=== PATIENT | female | born 1965 | race Caucasian/White ===

== ENCOUNTER 2017-04-30 21:44 | Emergency (ER) | payer MEDICAID ==
[~2017-04-30 21:44] MED LIST: ACET325 PO; BENZ1TAB PO; CEFU1TAB18 PO; CLOZ100 PO; FLUP10 PO; FURO20 PO; IOHEXOL 350 MG/ML 10 ML VIAL (for RAD DIAG) IVCONTRAST ONE; LISI-363 PO; VIST50CA PO
[2017-04-30 22:00] VITALS: BP 132/70; PULSE 89; RESP 18; TEMP 98.1; O2SAT 99
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
[2017-04-30 23:02] LABS: AUTOMATED NEUTROPHIL # 5.1 TH/MM3 (1.8-7.7); BASOPHIL # 0.1 TH/MM3 (0-0.2); EOSINOPHIL % 0.1 % (0.0-4.0); HEMATOCRIT 35.1 % (35.0-46.0); HEMOGLOBIN 11.6 GM/DL (11.6-15.3); LYMPH % 30.1 % (9.0-44.0); LYMPHOCYTE # 2.6 TH/MM3 (1.0-4.8); MEAN CELL VOLUME 84.2 FL (80.0-100.0); MEAN CORPUSCULAR HEMOGLOBIN 27.8 PG (27.0-34.0); MEAN PLATELET VOLUME 8.3 FL (7.0-11.0); MONO % 8.7 % (0.0-8.0); MONOCYTE # 0.7 TH/MM3 (0-0.9); NEUT % 60.1 % (16.0-70.0); PLATELET COUNT 349 TH/MM3 (150-450); RED BLOOD COUNT 4.17 MIL/MM3 (4.00-5.30); RED CELL DISTRIBUTION WIDTH 14.2 % (11.6-17.2); WHITE BLOOD COUNT 8.5 TH/MM3 (4.0-11.0)
[2017-04-30 23:03] LABS: AMORPHOUS SEDIMENT, URINE RARE; BACTERIA, URINE FEW /hpf; BILIRUBIN, URINE NEG (NEG); BLOOD, URINE MOD (NEG); GLUCOSE,URINE NEG (NEG); KETONE, URINE NEG (NEG); NITRITE,URINE NEG (NEG); PH, URINE 5.5 (5.0-8.5); SQUAMOUS EPITHELIAL CELL URINE 6 /hpf (0-5); URINE COLOR YELLOW (YELLW/STRAW); URINE LEUKOCYTE ESTERASE TRACE (NEG)
[2017-04-30 23:24] LABS: ALKALINE PHOSPHATASE 124 U/L (45-117); TOTAL BILIRUBIN ADULT 0.3 MG/DL (0.2-1.0); TOTAL PROTEIN 7.1 GM/DL (6.4-8.2)
[2017-04-30 23:26] LABS: ALT (GPT) 33 U/L (10-53); AST (GOT) 33 U/L (15-37); BICARBONATE 23.9 MEQ/L (21.0-32.0); BLOOD UREA NITROGEN 17 MG/DL (7-18); CALCIUM 9.6 MG/DL (8.5-10.1); CHLORIDE 100 MEQ/L (98-107); CREATININE 0.75 MG/DL (0.50-1.00); GLOMERULAR FILTRATION RATE 81 ML/MIN (>89); GLUCOSE,RANDOM 99 MG/DL (74-106); LIPASE 154 U/L (73-393); SODIUM (NA) 132 MEQ/L (136-145)
--- NOTE | 2017-05-01 00:41 | RADRPT ---
EXAM DATE/TIME: 04/30/2017 23:55 [place] COMPARISON: No previous studies available for comparison. INDICATIONS : Epigastric abdominal pain. IV CONTRAST: 100 cc Omnipaque 350 (iohexol) IV ORAL CONTRAST: No oral contrast ingested. RADIATION DOSE: 11.58 CTDIvol (mGy) MEDICAL HISTORY : Cardiovascular disease. Hypertension. SURGICAL HISTORY : None. ENCOUNTER: Initial ACUITY: 1 day PAIN SCALE: 6/10 LOCATION: Abdomen. TECHNIQUE: Volumetric scanning of the abdomen and pelvis was performed. Using automated exposure control and ad justment of the mA and/or kV according to patient size, radiation dose was kept as low as reasonably achievable to obtain optimal diagnostic quality images. DICOM format image data is available electro nically for review and comparison. FINDINGS: LOWER LUNGS: The visualized lower lungs are clear. LIVER: Homogeneous density without lesion. There is no dilation of the biliary tree. No calcified gallston es. SPLEEN: Normal size without lesion. PANCREAS: Within normal limits. KIDNEYS: Normal in size and shape. There is no mass, stone or hydronephrosis. ADRENAL GLANDS: Within normal limits. VASCULAR: There is no aortic aneurysm. BOWEL/MESENTERY: There is mild dilation of proximal small bowel loops measuring up to 3.3 cm in dimension. No air-flu id levels seen. Distal small bowel is not dilated. There is a moderate amount of stool throughout t he left and sigmoid colon. No evidence of free fluid or free intraperitoneal gas. ABDOMINAL WALL: Within normal limits. RETROPERITONEUM: There is no lymphadenopathy. BLADDER: No wall thickening or mass. REPRODUCTIVE: Anteverted uterus to the right. No adnexal masses seen. INGUINAL: There is no lymphadenopathy or hernia. MUSCULOSKELETAL: Within normal limits for patient age. CONCLUSION: 1. Mild dilation of proximal small bowel loops without air-fluid levels. This is nonspecific and cou ld represent ileus. Recommend followup films. 2. Mild constipation. Tavo Harris MD on May 01, 2017 at 0:36 Board Certified Radiologist. This report was verified electronically.
[2017-05-01] MEDS ORDERED: COLA100C5 PO (00:51)
[2017-05-01] MEDS ORDERED: LIDOCAINE VISCOUS 2% SOLN 15 ML UDC PO ONE (01:00)
[2017-05-01] MEDS ORDERED: ALUMINUM/MAGNESIUM/SIMETH 30 ML CUP PO ONE (01:00)
[2017-05-01] MEDS ORDERED: DOCUSATE SODIUM 100 MG CAP PO ONE (01:00)
[2017-05-01 02:22] VITALS: BP 136/78
== END 2017-05-01 05:15 | disposition home or self-care (01) ==
LOC: NEPD 21:44 → NEPB 05-01 05:15
DX: K59.00 Constipation, unspecified (principal); E87.1 Hypo-osmolality and hyponatremia; F31.9 Bipolar disorder, unspecified; F41.9 Anxiety disorder, unspecified; E78.00 Pure hypercholesterolemia, unspecified; I10 Essential (primary) hypertension; F20.9 Schizophrenia, unspecified; E07.9 Disorder of thyroid, unspecified; Z79.899 Other long term (current) drug therapy
CPT/HCPCS: 74177; 80053; 80178; 81001; 83690; 84703; 85025; 99285; Q9967

== ENCOUNTER 2018-01-14 12:43 | Inpatient (IN) ==
[2018-01-14] MEDS ORDERED: Sod Chloride 0.9% Inj 1,000 ML IV.SIG SCH (13:00)
[2018-01-14 13:50] LABS: Baso % (Auto) 0.2 % (0.0-2.0); Eos % (Auto) 0.1 % (0.0-4.0); Hematocrit 30.8 % (35.0-46.0); Hemoglobin 10.7 gm/dL (11.6-15.3); Lymph # (Auto) 1.3 th/mm3 (1.0-4.8); Lymph % (Auto) 17.9 % (9.0-44.0); Mean Corpuscular HGB Conc 34.9 % (32.0-36.0); Mean Corpuscular Hemoglobin 28.8 pg (27.0-34.0); Mean Corpuscular Volume 82.4 fL (80.0-100.0); Mean Platelet Volume 7.5 fL (7.0-11.0); Mono % (Auto) 13.5 % (0.0-8.0); Neut # (Auto) 4.8 th/mm3 (1.8-7.7); Neut % (Auto) 68.3 % (16.0-70.0); Platelet Count 246 th/mm3 (150-450); Red Blood Count 3.73 mil/mm3 (4.00-5.30); Red Cell Distribution Width 13.6 % (11.6-17.2); White Blood Count 7.1 th/mm3 (4.0-11.0)
[2018-01-14 14:15] LABS: Albumin 4.1 g/dL (3.4-5.0); Anion Gap 13 meq/L (5-15); Aspartate Aminotransferase 15 U/L (15-37); Blood Urea Nitrogen 10 mg/dL (7-18); Calcium 9.2 mg/dL (8.5-10.1); Carbon Dioxide 20.6 meq/L (21.0-32.0); Chloride 84 meq/L (98-107); Glomerular Filtration Rate 78 mL/min (>89); Glucose,Random 88 mg/dL (74-106)
[2018-01-14 14:18] LABS: Alanine Aminotransferase 18 U/L (10-53); Alkaline Phosphatase 61 U/L (45-117); Thyroid Stimulating Hormone 0.413 uIU/mL (0.358-3.740); Total Protein 6.8 g/dL (6.4-8.2)
[2018-01-14 14:26] LABS: Sodium 118 meq/L (136-145)
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
--- NOTE | 2018-01-14 15:32 | P.HP ---
History of Present Illness Primary Care Physician: No Primary Care Physician History of Present Illness: 52-year-old white female being admitted for acute hyponatremia and acute manic episode. Patient is a unreliable historian, history is largely otherwise obtained from emergency room physician and per phone call made to . I spoke with [facility], informed me that pt's caregiver/cane furniture maker by the name of Catina brought her possibly from assisted/ living facility to because she was having a manic episode. At patient conveyed that she has been vomiting and having diarrhea along with edematous. She also c/o "has to urinate but now it she is not urinating" and now believes that she needed to get medically cleared. As I approach the patient's room from a far to evaluate her, I can clearly see her talking but to no one in the room. Nurse affirms that she is talking by herself in the room. Upon asking the patient, she is able to verify that this is indeed a hospital and that the correct month is January, she gets the year wrong by 8 years mentioning that it is 2009. She mentions that she is here in the hospital because she wants to get herself Kumar acted so that she can switch her medications. The patient is very tangential in her thought process. As I review her chart and allergies, I asked her about Haldol Geodon and Seroquel and she mentions the exact same response to each one stating that it "breaks me out in hives." Her blood work in the emergency department showed no abnormalities except for acute hyponatremia with a sodium of 118. Social history and family history are noncontributory as the patient is unreliable given her acute manic state. Last seen 2 months ago 11/20 at her PCP's office per my phone conversation with pt's PCP nurse pracitioner. Pt used to be at [facility] but now apparently lives at some private assisted living arrangement. Inpatient Certification: I certify that the inpatient services were ordered in accordance with Medicare regulations governing the order. This includes certification that hospital inpatient services are reasonable and necessary and in the case of services not specified as inpatient-only under 42 CFR 419.22(n), that they are appropriately provided as inpatient services in accordance to with the 2-midnight benchmark under 43 CFR 412.3(e) Estimated Total Length of Stay (Days): 2 Plans for Post Hospital Care: Not yet determined Review of Systems All other systems reviewed negative except as stated in HPI PMFSH - History History Provided By: Patient, Medical Record - Medical History Medical History: Medical History (Last Reviewed 01/14/18 @ 15:24 by Chad Payne MD) Anemia Bipolar 1 disorder Depression Hyperlipidemia Hypertension Hypothyroid Schizophrenia - Tobacco History Smoking Status: Never smoker - Alcohol History How Often Do You Have a Drink Containing Alcohol: 2 to 4 times a month - Substance Use History Substance History: No History of Abuse - Travel History Recent Travel in the [place] Within the Last 8 Weeks: No Recent Travel Out of the Country Within the Last 8 Weeks: No - Immunization History Tetanus Immunization: Unsure Medications and Allergies Active Medications: Active Medications Sodium Chloride (Ns Inj) 1,000 mls @ 0 mls/hr IV.SIG BOLUS HAMZAH Sodium Chloride (Ns Flush) 2 ml IV.FLUSH BID HAMZAH Sodium Chloride (Ns Flush) 2 ml IV.FLUSH PRN PRN PRN Reason: FLUSH AFTER USING IV ACCESS Allergies Allergy/AdvReac Type Severity Reaction Status Date / Time divalproex sodium Allergy Severe unknown Unverified 01/14/18 12:58 haloperidol [From Haldol] Allergy Unknown UNKNOWN Verified 01/14/18 13:57 lamotrigine Allergy Unknown unknown Unverified 01/14/18 12:58 ziprasidone Allergy Unknown unknown Unverified 01/14/18 12:58 quetiapine AdvReac Severe Hallucinati Unverified 01/14/18 12:58 ons TAPE Allergy Unknown Rash Uncoded 01/14/18 12:58 Home Medications Medication Instructions Recorded Confirmed Type atorvastatin 40 mg PO DAILY 01/14/18 01/14/18 History benztropine 1 mg PO DAILY 01/14/18 01/14/18 History brexpiprazole [Rexulti] 3 mg PO DAILY 01/14/18 01/14/18 History levothyroxine 75 mcg PO DAILY 01/14/18 01/14/18 History metformin 1,000 mg PO BID 01/14/18 01/14/18 History metoclopramide HCl 5 mg PO QID 01/14/18 01/14/18 History multivitamin 1 cap PO QAM 01/14/18 01/14/18 History omeprazole 20 mg PO DAILY 01/14/18 01/14/18 History oxcarbazepine 300 mg PO BID 01/14/18 01/14/18 History oxcarbazepine [Oxtellar XR] 600 mg PO DAILY 01/14/18 01/14/18 History rivaroxaban [Xarelto] 10 mg PO DAILY 01/14/18 01/14/18 History Exam Vital signs: Vital Signs 01/14/18 12:51 Temperature 100.1 F H Pulse Rate 85 Respiratory Rate 18 Blood Pressure 175/98 H Pulse Oximetry 98 Intake & Output 01/13/18 01/14/18 01/14/18 18:59 06:59 18:59 Weight 81.647 kg Narrative: VS: afebrile GENERAL: No acute distress, well-nourished white female, talking to herself SKIN: Warm and dry. EYES: Pupils equal and round. No scleral icterus. No injection or drainage. ENT: No nasal bleeding or discharge. Mucous membranes pink and moist. CARDIOVASCULAR: Regular rate and rhythm. no murmurs RESPIRATORY: No accessory muscle use. Clear to auscultation. Breath sounds equal bilaterally. GASTROINTESTINAL: Abdomen soft, non-tender, nondistended. Extremities: No clubbing, cyanosis. Mild edema in right lower extremity, no erythema. MUSCULOSKELETAL: adequate muscle bulk and tone for age and habitus. 3/5 proximal lower extremity strength bilaterally on straight leg raise, 5/5 proximal upper extremity strength bilaterally. NEUROLOGICAL: Awake and alert. No obvious cranial nerve deficits. No facial droop nor slurred speech noted. PSYCHIATRIC: Talking to herself, pleasant mood, appropriate affect. Judgment and insight are unreliable. Results - Labs CBC & Chem 7: 01/14/18 13:35 01/14/18 16:10 Labs: Laboratory Results - last 24 hr 01/14/18 01/14/18 13:35 13:35 WBC 7.1 RBC 3.73 L Hgb 10.7 L Hct 30.8 L MCV 82.4 MCH 28.8 MCHC 34.9 RDW 13.6 Plt Count 246 MPV 7.5 Neut % (Auto) 68.3 Lymph % (Auto) 17.9 [place] % (Auto) 13.5 H Eos % (Auto) 0.1 Baso % (Auto) 0.2 Neut # (Auto) 4.8 Lymph # (Auto) 1.3 [place] # (Auto) 1.0 H Eos # (Auto) 0.0 Baso # (Auto) 0.0 WBC Differential . Differential Comment Auto diff final Sodium 118 L* Potassium 4.0 Chloride 84 L Carbon Dioxide 20.6 L Anion Gap 13 BUN 10 Creatinine 0.77 Estimated GFR 78 L Random Glucose 88 Calcium 9.2 Total Bilirubin 0.5 AST 15 ALT 18 Alkaline Phosphatase 61 Total Protein 6.8 Albumin 4.1 TSH 0.413 Serum Alcohol Less than 3 Caprini VTE Risk Assessment Caprini VTE Risk Assessment: No/Low Risk (score <= 1) Caprini Risk Assessment Model: Point Value = 1 Point Value = 2 Point Value = 3 Point Value = 5 Age 41-60 Minor surgery BMI > 25 kg/m2 Swollen legs Varicose veins or History of unexplained or recurrent spontaneous Oral contraceptives or hormone replacement Sepsis (< 1 month) Serious lung disease, including pneumonia (< 1 month) Abnormal pulmonary function Acute myocardial infarction Congestive heart failure (< 1 month) History of inflammatory bowel disease Medical patient at bed rest Age 61-74 Arthroscopic surgery Major open surgery (> 45 min) Laparoscopic surgery (> 45 min) Malignancy Confined to bed (> 72 hours) Immobilizing plaster cast Central venous access Age >= 75 History of VTE Family history of VTE Factor V Leiden Prothrombin [id number] Lupus anticoagulant Anticardiolipin antibodies Elevated serum homocysteine Heparin-induced thrombocytopenia Other congenital or acquired thrombophilia Stroke (< 1 month) Elective arthroplasty Hip, pelvis, or leg fracture Acute spinal cord injury (< 1 month) Prophylaxis Regimen: Total Risk Factor Score Risk Level Prophylaxis Regimen 0-1 Low Early ambulation 2 Moderate Order ONE of the following: *Sequential Compression Device (SCD) *Heparin 5000 units SQ BID 3-4 Higher Order ONE of the following medications: *Heparin 5000 units SQ TID *Enoxaparin/Lovenox 40 mg SQ daily (WT < 150 kg, CrCl > 30 mL/min) *Enoxaparin/Lovenox 30 mg SQ daily (WT < 150 kg, CrCl > 10-29 mL/min) *Enoxaparin/Lovenox 30 mg SQ BID (WT < 150 kg, CrCl > 30 mL/min) AND/OR *Sequential Compression Device (SCD) 5 or more Highest Order ONE of the following medications: *Heparin 5000 units SQ TID (Preferred with Epidurals) *Enoxaparin/Lovenox 40 mg SQ daily (WT < 150 kg, CrCl > 30 mL/min) *Enoxaparin/Lovenox 30 mg SQ daily (WT < 150 kg, CrCl > 10-29 mL/min) *Enoxaparin/Lovenox 30 mg SQ BID (WT < 150 kg, CrCl > 30 mL/min) AND *Sequential Compression Device (SCD) Assessment and Plan - Plan 52-year-old white female being admitted for acute hyponatremia and acute shelley. Discharge from [facility]. Acute hypotonic hyponatremia 118 upon admission, NS bolus ordered by ER, rechecking sodium in a few hours BMP in a.m. - TSH wnl. Etiology is not clear although the patient says she used to take "salt supplements." Thus check random urine sodium, urine osmolality. F/u lithium level. Possibly medication induced SIADH? vs actual GI losses - check echo given LE edema on exam to r/o HF. Nausea/vomiting/diarrhea - No GI symptoms have been noted at this time. - With my discussion with the patient's most recent PCP visit she has a history of chronic constipation and ischemic colitis for which she was on Xarelto. I will hold his Xarelto for now and monitor for further GI symptoms, can be restarted upon discharge. Acute shelley Possibly secondary to metabolic disturbance but psychiatry consult is warranted especially given psych hx (charted dx of schizophrenia and bipolar) and the patient's limitations on antipsychotics as the validity is behind these listed allergies is not verified - lithium level pending, UDS pending - Hold off on home medications of benztropine, oxcarbazepine, metoclopramide - we will let psychiatry adjust Diabetes Monitor sugars for now, avoid metformin given possible GI upset hx for now - Lipitor Hypothyroidism - continue home Synthroid heparin
[2018-01-14 15:43] LABS: Amphetamine Screen,Urine Neg (Neg); Barbiturate Screen,Urine Neg (Neg); Cannabinoid Screen,Urine Neg (Neg); Cocaine Screen,Urine Neg (Neg)
[2018-01-14 16:08] LABS: Opiate Screen,Urine Neg (Neg)
[2018-01-14 16:45] LABS: Bacteria,Urine Rare /hpf; Bilirubin,Urine Negative (Negative); Clarity,Urine Clear (Clear); Color,Urine Yellow (Yellw/Straw); Glucose,Urine (UA) Negative (Negative); Hyaline Casts,Urine 3 /lpf (0-3); Leukocyte Esterase,Urine Trace (Negative); Mucus,Urine Few /lpf (Occasional); Nitrite,Urine Negative (Negative); Squamous Epithelial Cell,Urine <1 /hpf (0-5)
[2018-01-14] MEDS ORDERED: Heparin - SQ 10,000 UNITS/ML Vial SQ SCH (22:30)
[2018-01-15 09:19] LABS: Calcium 9.8 mg/dL (8.5-10.1); Carbon Dioxide 23.3 meq/L (21.0-32.0); Potassium 3.8 meq/L (3.5-5.1)
[2018-01-15] MEDS: Levothyroxine 75 MCG Tablet PO SCH (09:52)
[2018-01-15] MEDS: Pantoprazole Sodium 20 MG DR Tablet PO SCH (09:52)
[2018-01-15] MEDS: Heparin - SQ 10,000 UNITS/ML Vial SQ SCH ×2 (09:52→20:38)
--- NOTE | 2018-01-15 10:53 | P.PN ---
Subjective Interval history: Patient is standing in the room. Nurse mixer blender present in the room. No changes over night. No nausea, vomiting, diarrhea, constipation. Physical Exam Vital signs: Vital Signs 01/14/18 12:51 01/14/18 16:00 01/14/18 20:00 Temperature 100.1 F H 97.9 F Pulse Rate 85 87 80 Respiratory Rate 18 20 18 Blood Pressure 175/98 H 161/92 H 141/74 H Pulse Oximetry 98 98 97 01/15/18 00:00 01/15/18 04:00 01/15/18 08:00 Temperature 97.9 F 97.6 F 98.2 F Pulse Rate 64 62 72 Respiratory Rate 16 16 20 Blood Pressure 140/75 109/59 L 113/65 Pulse Oximetry 98 97 97 Intake & Output 01/14/18 01/15/18 01/15/18 18:59 06:59 18:59 Intake Total 600 / 600 Balance 600 / 600 Weight 78.9 kg 78.5 kg Intake: IV 500 / 500 NS Inj 1,000 ML @ Wide Open IV. 500 / 500 SIG BOLUS HAMZAH Rx#:[id number] Oral 100 / 100 Other: # Voids 3 # Bowel Movements 0 Weight On Admission 81.647 kg Narrative: GENERAL: Alert well-developed female. Alert, oriented. SKIN: Warm and dry. HEAD: Atraumatic. Normocephalic. EYES: Pupils equal and round. No scleral icterus. No injection or drainage. ENT: No nasal bleeding or discharge. Mucous membranes pink and moist. NECK: Trachea midline. No JVD. CARDIOVASCULAR: Regular rate and rhythm. RESPIRATORY: No accessory muscle use. Clear to auscultation. Breath sounds equal bilaterally. GASTROINTESTINAL: Abdomen soft, non-tender, nondistended. Hepatic and splenic margins not palpable. MUSCULOSKELETAL: Extremities without clubbing, cyanosis. Lower extremity edema. No obvious deformities. NEUROLOGICAL: Awake and alert. No obvious cranial nerve deficits. Motor grossly within normal limits. Five out of 5 muscle strength in the arms and legs. Normal speech. PSYCHIATRIC: Labile mood, tangential speech Results - Labs CBC & Chem 7: 01/14/18 13:35 01/15/18 07:39 Laboratory Results - last 24 hr 01/14/18 01/14/18 01/14/18 13:35 13:35 14:40 WBC 7.1 RBC 3.73 L Hgb 10.7 L Hct 30.8 L MCV 82.4 MCH 28.8 MCHC 34.9 RDW 13.6 Plt Count 246 MPV 7.5 Neut % (Auto) 68.3 Lymph % (Auto) 17.9 [place] % (Auto) 13.5 H Eos % (Auto) 0.1 Baso % (Auto) 0.2 Neut # (Auto) 4.8 Lymph # (Auto) 1.3 [place] # (Auto) 1.0 H Eos # (Auto) 0.0 Baso # (Auto) 0.0 WBC Differential . Differential Comment Auto diff final Sodium 118 L* Potassium 4.0 Chloride 84 L Carbon Dioxide 20.6 L Anion Gap 13 BUN 10 Creatinine 0.77 Estimated GFR 78 L POC Glucose Random Glucose 88 Calcium 9.2 Total Bilirubin 0.5 AST 15 ALT 18 Alkaline Phosphatase 61 Total Protein 6.8 Albumin 4.1 TSH 0.413 Urine Color Urine Clarity Urine pH Ur Specific [place] Urine Protein Urine Glucose (UA) Urine Ketones Urine Occult Blood Urine Nitrate Urine Bilirubin Urine Urobilinogen Ur Leukocyte Esterase Urine RBC Urine WBC Ur Squamous Epith Cells Urine Bacteria Hyaline Casts Urine Mucus Micro UA Comment Ur Microscopic Review Urine Culture Comments Urine Osmolality Ur Random Sodium Urine Opiates Screen Ur Barbiturates Screen Ur Amphetamines Screen U Benzodiazepines Scrn [place] 0.1 L Urine Cocaine Screen U Cannabinoids Screen Serum Alcohol Less than 3 01/14/18 01/14/18 01/14/18 14:45 14:45 16:10 WBC RBC Hgb Hct MCV MCH MCHC RDW Plt Count MPV Neut % (Auto) Lymph % (Auto) [place] % (Auto) Eos % (Auto) Baso % (Auto) Neut # (Auto) Lymph # (Auto) [place] # (Auto) Eos # (Auto) Baso # (Auto) WBC Differential Differential Comment Sodium 120 L* Potassium Chloride Carbon Dioxide Anion Gap BUN Creatinine Estimated GFR POC Glucose Random Glucose Calcium Total Bilirubin AST ALT Alkaline Phosphatase Total Protein Albumin TSH Urine Color Yellow Urine Clarity Clear Urine pH 6.0 Ur Specific [place] 1.010 Urine Protein Negative Urine Glucose (UA) Negative Urine Ketones Trace H Urine Occult Blood Negative Urine Nitrate Negative Urine Bilirubin Negative Urine Urobilinogen Less than 2 Ur Leukocyte Esterase Trace H Urine RBC Less than 1 Urine WBC 3 Ur Squamous Epith Cells <1 Urine Bacteria Rare H Hyaline Casts 3 Urine Mucus Few H Micro UA Comment Culture not ind Ur Microscopic Review Not Reportable Urine Culture Comments Culture not ind Urine Osmolality Ur Random Sodium Urine Opiates Screen Neg Ur Barbiturates Screen Neg Ur Amphetamines Screen Neg U Benzodiazepines Scrn Neg [place] Urine Cocaine Screen Neg U Cannabinoids Screen Neg Serum Alcohol 01/14/18 01/14/18 01/14/18 18:15 18:15 22:10 WBC RBC Hgb Hct MCV MCH MCHC RDW Plt Count MPV Neut % (Auto) Lymph % (Auto) [place] % (Auto) Eos % (Auto) Baso % (Auto) Neut # (Auto) Lymph # (Auto) [place] # (Auto) Eos # (Auto) Baso # (Auto) WBC Differential Differential Comment Sodium Potassium Chloride Carbon Dioxide Anion Gap BUN Creatinine Estimated GFR POC Glucose 93 Random Glucose Calcium Total Bilirubin AST ALT Alkaline Phosphatase Total Protein Albumin TSH Urine Color Urine Clarity Urine pH Ur Specific [place] Urine Protein Urine Glucose (UA) Urine Ketones Urine Occult Blood Urine Nitrate Urine Bilirubin Urine Urobilinogen Ur Leukocyte Esterase Urine RBC Urine WBC Ur Squamous Epith Cells Urine Bacteria Hyaline Casts Urine Mucus Micro UA Comment Ur Microscopic Review Urine Culture Comments Urine Osmolality 216 L Ur Random Sodium 25 Urine Opiates Screen Ur Barbiturates Screen Ur Amphetamines Screen U Benzodiazepines Scrn [place] Urine Cocaine Screen U Cannabinoids Screen Serum Alcohol 01/15/18 07:39 WBC RBC Hgb Hct MCV MCH MCHC RDW Plt Count MPV Neut % (Auto) Lymph % (Auto) [place] % (Auto) Eos % (Auto) Baso % (Auto) Neut # (Auto) Lymph # (Auto) [place] # (Auto) Eos # (Auto) Baso # (Auto) WBC Differential Differential Comment Sodium 131 L D Potassium 3.8 Chloride 98 D Carbon Dioxide 23.3 Anion Gap 10 BUN 6 L Creatinine 0.70 Estimated GFR 88 L POC Glucose Random Glucose 78 Calcium 9.8 Total Bilirubin AST ALT Alkaline Phosphatase Total Protein Albumin TSH Urine Color Urine Clarity Urine pH Ur Specific [place] Urine Protein Urine Glucose (UA) Urine Ketones Urine Occult Blood Urine Nitrate Urine Bilirubin Urine Urobilinogen Ur Leukocyte Esterase Urine RBC Urine WBC Ur Squamous Epith Cells Urine Bacteria Hyaline Casts Urine Mucus Micro UA Comment Ur Microscopic Review Urine Culture Comments Urine Osmolality Ur Random Sodium Urine Opiates Screen Ur Barbiturates Screen Ur Amphetamines Screen U Benzodiazepines Scrn [place] Urine Cocaine Screen U Cannabinoids Screen Serum Alcohol Assessment and Plan - Plan Hypotonic hyponatremia 118 upon admission, NS bolus ordered by ER 01/15/18 - sodium 131 - TSH wnl. Etiology is not clear although the patient says she used to take "salt supplements." Thus check random urine sodium, urine osmolality. F/u lithium level. Medication induced SIADH vs GI losses - Echo today to r/o CHF due to LE edema Nausea/vomiting/diarrhea - No GI symptoms now - History of chronic constipation and ischemic colitis for which she was on Xarelto. - Holding Xarelto for now and monitor for further GI symptoms, - Restart upon discharge. Acute shelley ?2/2 to metabolic disturbance but patient has extensive psych hx of schizophrenia and bipolar and long antipsychotic allergy list - lithium level 0.1 mL, UDS negative - Hold off on home medications of benztropine, oxcarbazepine, metoclopramide, psych consult pending Diabetes Monitor sugars for now -avoid metformin given possible GI upset hx for now -atorvastatin Hypothyroidism - continue home Synthroid Code Status: Full DVT prophylaxis: Heparin
--- NOTE | 2018-01-15 15:08 | P.PN ---
Subjective Interval history: Denies abdominal cramps or legs pain. No palpitations no chest pain or shortness of breath. No nausea, vomiting, diarrhea, constipation. Physical Exam Vital signs: Vital Signs 01/14/18 16:00 01/14/18 20:00 01/15/18 00:00 Temperature 97.9 F 97.9 F Pulse Rate 87 80 64 Respiratory Rate 20 18 16 Blood Pressure 161/92 H 141/74 H 140/75 Pulse Oximetry 98 97 98 01/15/18 04:00 01/15/18 08:00 Temperature 97.6 F 98.2 F Pulse Rate 62 72 Respiratory Rate 16 20 Blood Pressure 109/59 L 113/65 Pulse Oximetry 97 97 Intake & Output 01/14/18 01/15/18 01/15/18 18:59 06:59 18:59 Intake Total 600 / 600 Balance 600 / 600 Weight 78.9 kg 78.5 kg Intake: IV 500 / 500 NS Inj 1,000 ML @ Wide Open IV. 500 / 500 SIG BOLUS HAMZAH Rx#:[id number] Oral 100 / 100 Other: # Voids 3 # Bowel Movements 0 Weight On Admission 81.647 kg Narrative: GENERAL: Alert well-developed female. Alert, oriented. CARDIOVASCULAR: Regular rate and rhythm. RESPIRATORY: No accessory muscle use. Clear to auscultation. Breath sounds equal bilaterally. GASTROINTESTINAL: Abdomen soft, non-tender, nondistended. Hepatic and splenic margins not palpable. MUSCULOSKELETAL: Extremities without clubbing, cyanosis. Lower extremity edema. No obvious deformities. NEUROLOGICAL: Awake and alert. No obvious cranial nerve deficits. Motor grossly within normal limits. Five out of 5 muscle strength in the arms and legs. Normal speech. PSYCHIATRIC: Labile mood, tangential speech Results - Labs CBC & Chem 7: 01/14/18 13:35 01/15/18 07:39 Laboratory Results - last 24 hr 01/14/18 01/14/18 01/14/18 14:40 14:45 14:45 Sodium Potassium Chloride Carbon Dioxide Anion Gap BUN Creatinine Estimated GFR POC Glucose Random Glucose Calcium Urine Color Yellow Urine Clarity Clear Urine pH 6.0 Ur Specific [place] 1.010 Urine Protein Negative Urine Glucose (UA) Negative Urine Ketones Trace H Urine Occult Blood Negative Urine Nitrate Negative Urine Bilirubin Negative Urine Urobilinogen Less than 2 Ur Leukocyte Esterase Trace H Urine RBC Less than 1 Urine WBC 3 Ur Squamous Epith Cells <1 Urine Bacteria Rare H Hyaline Casts 3 Urine Mucus Few H Micro UA Comment Culture not ind Ur Microscopic Review Not Reportable Urine Culture Comments Culture not ind Urine Osmolality Ur Random Sodium Urine Opiates Screen Neg Ur Barbiturates Screen Neg Ur Amphetamines Screen Neg U Benzodiazepines Scrn Neg [place] 0.1 L Urine Cocaine Screen Neg U Cannabinoids Screen Neg 01/14/18 01/14/18 01/14/18 16:10 18:15 18:15 Sodium 120 L* Potassium Chloride Carbon Dioxide Anion Gap BUN Creatinine Estimated GFR POC Glucose Random Glucose Calcium Urine Color Urine Clarity Urine pH Ur Specific [place] Urine Protein Urine Glucose (UA) Urine Ketones Urine Occult Blood Urine Nitrate Urine Bilirubin Urine Urobilinogen Ur Leukocyte Esterase Urine RBC Urine WBC Ur Squamous Epith Cells Urine Bacteria Hyaline Casts Urine Mucus Micro UA Comment Ur Microscopic Review Urine Culture Comments Urine Osmolality 216 L Ur Random Sodium 25 Urine Opiates Screen Ur Barbiturates Screen Ur Amphetamines Screen U Benzodiazepines Scrn [place] Urine Cocaine Screen U Cannabinoids Screen 01/14/18 01/15/18 22:10 07:39 Sodium 131 L D Potassium 3.8 Chloride 98 D Carbon Dioxide 23.3 Anion Gap 10 BUN 6 L Creatinine 0.70 Estimated GFR 88 L POC Glucose 93 Random Glucose 78 Calcium 9.8 Urine Color Urine Clarity Urine pH Ur Specific [place] Urine Protein Urine Glucose (UA) Urine Ketones Urine Occult Blood Urine Nitrate Urine Bilirubin Urine Urobilinogen Ur Leukocyte Esterase Urine RBC Urine WBC Ur Squamous Epith Cells Urine Bacteria Hyaline Casts Urine Mucus Micro UA Comment Ur Microscopic Review Urine Culture Comments Urine Osmolality Ur Random Sodium Urine Opiates Screen Ur Barbiturates Screen Ur Amphetamines Screen U Benzodiazepines Scrn [place] Urine Cocaine Screen U Cannabinoids Screen Assessment and Plan - Plan Hypotonic hyponatremia 118 upon admission, received NS bolus in the ER. Monitor sodium 01/15/18 - sodium 131 - TSH wnl. Etiology is not clear although the patient says she used to take "salt supplements." Thus check random urine sodium, urine osmolality. F/u lithium level. Medication induced SIADH vs GI losses - Echo today to r/o CHF due to LE edema Nausea/vomiting/diarrhea . - No GI symptoms now - History of chronic constipation and ischemic colitis for which she was on Xarelto. - Holding Xarelto for now and monitor for further GI symptoms, - Restart upon discharge. Acute shelley ?2/2 to metabolic disturbance but patient has extensive psych hx of schizophrenia and bipolar and long antipsychotic allergy list - lithium level 0.1 mL, UDS negative - Hold off on home medications of benztropine, oxcarbazepine, metoclopramide, psych consult pending Diabetes Monitor sugars for now -avoid metformin given possible GI upset hx for now -atorvastatin Hypothyroidism - continue home Synthroid Code Status: Full DVT prophylaxis: Heparin Discharge plan pending improvement, pending Psych evaluation
--- NOTE | 2018-01-15 17:44 | ECHRPT ---
Indication: HEART FAILURE CONCLUSIONS There is normal left ventricular systolic function with an ejection fraction of 60-65%. No regional wall motion abnormalities. Normal left ventricular size. Wall thickness is normal. No significant valvular disease. The inferior vena cava is normal in size. BP: / HR: Rhythm: Sinus MEASUREMENTS (Male / Female) Normal Values Technical Quality:Fair 2D ECHO LV Diastolic Diameter PLAX 4.9 cm 4.2 - 5.9 / 3.9 - 5.3 cm LV Systolic Diameter PLAX 3.5 cm IVS Diastolic Thickness 0.8 cm 0.6 - 1.0 / 0.6 - 0.9 cm LVPW Diastolic Thickness 0.8 cm 0.6 - 1.0 / 0.6 - 0.9 cm LV Relative Wall Thickness 0.3 RV Internal Dim ED PLAX 2.9 cm LVOT Diameter 2.6 cm Aortic Root Diameter 3.4 cm LA Systolic Diameter LX 3.7 cm 3.0 - 4.0 / 2.7 - 3.8 cm M-MODE AV Cusp Separation MM 2.3 cm DOPPLER AV Peak Velocity 109.0 cm/s AV Peak Gradient 4.8 mmHg AV Mean Gradient 3.0 mmHg AV Velocity Time Integral 24.1 cm LVOT Peak Velocity 72.1 cm/s LVOT Peak Gradient 2.1 mmHg LVOT Velocity Time Integral 15.8 cm AV Area Cont Eq vti 3.5 cm AV Area Cont Eq pk 3.5 cm Mitral E Point Velocity 68.9 cm/s Mitral A Point Velocity 56.9 cm/s Mitral E to A Ratio 1.2 LV E' Lateral Velocity 9.2 cm/s Mitral E to LV E' Lateral Ratio 7.5 LV E' Septal Velocity 8.5 cm/s Mitral E to LV E' Septal Ratio 8.1 TR Peak Velocity 204.0 cm/s TR Peak Gradient 16.6 mmHg PV Peak Velocity 54.9 cm/s PV Peak Gradient 1.2 mmHg FINDINGS LEFT VENTRICLE Normal left ventricular size. Wall thickness is normal. The left ventricular systolic function is normal with an estimated ejection fraction in the range of 60-65%. RIGHT VENTRICLE Normal right ventricular size and systolic function. LEFT ATRIUM The left atrial size is normal. RIGHT ATRIUM The right atrial size is normal. ATRIAL SEPTUM No atrial level shunt is demonstrated by color flow Doppler interrogation. AORTA The aortic root and proximal ascending aorta are normal in size on limited imaging. MITRAL VALVE [id number] mitral valve regurgitation. AORTIC VALVE Trileaflet aortic valve. Trace aortic valve regurgitation. TRICUSPID VALVE There is trace tricuspid valve regurgitation. PULMONARY VALVE No pulmonary valve regurgitation or stenosis. VESSELS The inferior vena cava is normal in size. PERICARDIUM No pericardial effusion. Sonu Carlos MD (Electronically Signed) Final Date:15 January 2018 17:42
--- NOTE | 2018-01-15 20:01 | P.CONPSY ---
Provisional Diagnosis Admission Date: January 14, 2018 15:04 [place].: Bipolar disorder History of Present Illness Service: Psychiatry Consult date: 01/15/18 Requesting Physician: Chad Payne Reason for Consult: Bipolar/shelley Primary Care Provider: No Primary Care Physician History of Present Illness: Patient is a 52-year-old woman, , 2 children, domiciled an assisted living facility for disorder versus schizoaffective disorder bipolar type, with multiple psychiatric admissions, no previous suicide attempts, no history of self-injurious behavior with no substance use history, with a past medical history significant for diabetes, hypertension, hypothyroidism who presented to the ED after being brought in by EMS from [facility] for medical clearance which patient was noted with leg swelling with concerns of possible shelley. Patient was admitted to the medical unit due to noted hyponatremia which psychiatry was consulted for evaluation of possible shelley from bipolar disorder. Patient was found sitting in hospital chair with sitter at bedside noted B, cooperative. Patient states that she was at [facility] but after this assisted living facility was closed down to have been transitioned over to a different assisted living facility in [place] which was run by a couple. Patient states that after having been there recently for some time she was sent to the crisis center at [facility] due to concerns of the warehouse traffic supervisor and sister for possible manic episode but upon arrival to [facility] has been sent to the ER for medical clearance. She states that her sister and her lead worker of housekeeping and laundry/assistant facility manager had spoken over the phone and decided that she needed to be "checked out". She states that prior to this she believes that the warehouse traffic supervisor's has been was upset that patient was using "terms of endearment" when addressing him which upset him and brought concern in which she was decided that patient would be taken to [facility] crisis center for evaluation. Patient states that recently she has been having difficulty with sleeping which is 1 of her triggers for a manic episode but denied any other mood symptoms such as irritability, racing thoughts, perceptual disturbances, increased goal-directed activities, stating that her mood has been "fine" and compliant with medications. Patient states that usually when she comes manic she becomes hypersexual which she has not been doing since her last manic episode. During interview patient not noted to have pressured speech nor having a progress process but was noted to be tearful at times with some labile mood during interview and having poor recall recent events. Patient also noted with difficulty in concentration. Patient this time is alert and oriented x3, states her mood has been "fine" stating that she is concerned of wanting to adjust her medications as well as be referred to a different assisted living facility if she is not happy where she is currently staying. Patient denies any suicidal homicidal ideations at this time. Family psychiatric history: Patient states "I have no idea" denies any suicides in the family. Past psychiatric history: Previous psychiatric diagnoses bipolar disorder as per patient versus schizoaffective disorder bipolar type, multiple psychiatric admissions, denies any suicide attempt or self-injurious behavior. Patient reports outpatient mental health follow-up with Dr. Schumacher at [facility] in [place]. Patient has complex case manager, Lydia Cole. Substance use history: Denies Past medical history: Hypertension, hypothyroidism, diabetes Allergies: Depakote, Haldol, Lamictal, ziprasidone, Seroquel Social history: , has 2 children, domiciled an assisted living facility in [place]. Review of Systems All other systems reviewed negative except as stated in HPI PMFSH - History History Provided By: Patient, Medical Record - Medical History Medical History: Medical History (Last Reviewed 01/14/18 @ 15:24 by Chad Payne MD) Anemia Bipolar 1 disorder Depression Hyperlipidemia Hypertension Hypothyroid Schizophrenia - Tobacco History Second Hand Smoke Exposure: No Smoking Status: Never smoker - Alcohol History How Often Do You Have a Drink Containing Alcohol: 2 to 4 times a month - Substance Use History Substance History: No History of Abuse - Travel History Recent Travel in the [facility] Within the Last 8 Weeks: No Recent Travel Out of the Country Within the Last 8 Weeks: No - Immunization History Tetanus Immunization: Unsure Hx Influenza Vaccine This Season: Yes Medications and Allergies Active Medications: Active Medications Atorvastatin Calcium (Lipitor) 40 mg PO DAILY [facility] Last Admin: 01/15/18 09:53 Dose: 40 mg Heparin Sodium (Porcine) (Heparin Inj) 5,000 units SQ Q12HR HAMZAH Last Admin: 01/15/18 09:52 Dose: 5,000 units Levothyroxine Sodium (Synthroid) 75 mcg PO DAILY HAMZAH Last Admin: 01/15/18 09:52 Dose: 75 mcg Olanzapine (Zyprexa) 5 mg PO BID [facility] Pantoprazole Sodium (Protonix) 20 mg PO DAILY [facility] Last Admin: 01/15/18 09:52 Dose: 20 mg Sodium Chloride (Ns Flush) 2 ml IV.FLUSH BID [facility] Last Admin: 01/15/18 09:52 Dose: 2 ml Sodium Chloride (Ns Flush) 2 ml IV.FLUSH PRN PRN PRN Reason: FLUSH AFTER USING IV ACCESS Allergies Allergy/AdvReac Type Severity Reaction Status Date / Time divalproex sodium Allergy Severe unknown Unverified 01/14/18 12:58 haloperidol [From Haldol] Allergy Unknown UNKNOWN Verified 01/14/18 13:57 lamotrigine Allergy Unknown unknown Unverified 01/14/18 12:58 ziprasidone Allergy Unknown unknown Unverified 01/14/18 12:58 quetiapine AdvReac Severe Hallucinati Unverified 01/14/18 12:58 ons TAPE Allergy Unknown Rash Uncoded 01/14/18 12:58 Home Medications Medication Instructions Recorded Confirmed Type atorvastatin 40 mg PO DAILY 01/14/18 01/14/18 History benztropine 1 mg PO DAILY 01/14/18 01/14/18 History brexpiprazole [Rexulti] 3 mg PO DAILY 01/14/18 01/14/18 History levothyroxine 75 mcg PO DAILY 01/14/18 01/14/18 History metformin 1,000 mg PO BID 01/14/18 01/14/18 History metoclopramide HCl 5 mg PO QID 01/14/18 01/14/18 History multivitamin 1 cap PO QAM 01/14/18 01/14/18 History omeprazole 20 mg PO DAILY 01/14/18 01/14/18 History oxcarbazepine 300 mg PO BID 01/14/18 01/14/18 History oxcarbazepine [Oxtellar XR] 600 mg PO DAILY 01/14/18 01/14/18 History rivaroxaban [Xarelto] 10 mg PO DAILY 01/14/18 01/14/18 History Exam Vital signs: Vital Signs 01/15/18 00:00 01/15/18 04:00 01/15/18 08:00 Temperature 97.9 F 97.6 F 98.2 F Pulse Rate 64 62 72 Respiratory Rate 16 16 20 Blood Pressure 140/75 109/59 L 113/65 Pulse Oximetry 98 97 97 01/15/18 12:00 01/15/18 16:00 Temperature 97.7 F 97.8 F Pulse Rate 74 71 Respiratory Rate 20 20 Blood Pressure 123/79 165/91 H Pulse Oximetry 98 100 Intake & Output 01/15/18 01/15/18 01/16/18 06:59 18:59 06:59 Intake Total 600 / 600 480 / 480 Balance 600 / 600 480 / 480 Weight 78.5 kg Intake: IV 500 / 500 NS Inj 1,000 ML @ Wide Open IV. 500 / 500 SIG BOLUS HAMZAH Rx#:[id number] Oral 100 / 100 480 / 480 Other: # Voids 3 5 # Bowel Movements 0 1 Narrative: Patient not noted to be in acute distress, no gross motor abnormalities, no signs of tremor or EPS, no psychomotor agitation or retardation. - Constitutional no acute distress, cooperative Mental Status Examination Appearance: Appropriate Consciousness: Alert Orientation: Person, Place, Date/Time Motor Activity: Normal gait Speech: Unremarkable Language: Adequate Fund of Knowledge: Inadequate Attention and Concentration: Easily distracted Memory: Impaired, Immediate (intact), Remote (intact) Mood: Anxious Affect: Labile (Slightly, tearful at times during interview) Thought Process & Associations: Tangential Thought Content: Appropriate Hallucination Type: None Delusion Type: None Suicidal Ideation: No Suicidal Plan: No Suicidal Intention: No Homicidal Ideation: No Homicidal Plan: No Homicidal Intention: No Insight: Fair Judgment: Impulsive Assessment and Plan - Assessment (1) Bipolar disorder Code(s): F31.9 - Bipolar disorder, unspecified Status: Acute - Plan Plan: Estimated LOS: [] days Patient is a 52-year-old woman who carries a diagnosis of bipolar disorder, previous psychiatric admissions, no previous suicide attempts currently being followed at [facility] for her bipolar disorder which patient presented to the ED being sent from [facility] for medical evaluation was found to have hyponatremia and patient currently on Tegretol which has propensity to cause hyponatremia and would recommend not to resume this medication at this time and start olanzapine 5 mg p.o. twice daily for mood stabilization. Patient this time does not meet criteria for involuntary psychiatric admission but due to history of previous manic episodes and likely hypomanic symptoms at this time would benefit from psychiatric admission to start new mood stabilizer and to ensure continued stability which patient agrees to voluntary admission once medically cleared. Patient to be transferred to psychiatry inpatient unit once medically cleared for voluntary inpatient psychiatric care. Continue one-to-one observation for safety. Consult appreciated. Justification for Continued Inpatient Stay: At risk of further decompensation at lower level care.
[2018-01-16] MEDS ORDERED: Temazepam 15 MG Capsule PO ONE (02:29)
[2018-01-16 05:27] LABS: Calcium 9.9 mg/dL (8.5-10.1); Carbon Dioxide 23.3 meq/L (21.0-32.0); Potassium 3.5 meq/L (3.5-5.1)
[2018-01-16 05:53] LABS: Baso # (Auto) 0.1 th/mm3 (0.0-0.2); Baso % (Auto) 0.8 % (0.0-2.0); Eos % (Auto) 0.1 % (0.0-4.0); Hematocrit 35.9 % (35.0-46.0); Hemoglobin 11.9 gm/dL (11.6-15.3); Lymph # (Auto) 2.6 th/mm3 (1.0-4.8); Lymph % (Auto) 39.4 % (9.0-44.0); Mean Corpuscular HGB Conc 33.2 % (32.0-36.0); Mean Corpuscular Volume 84.4 fL (80.0-100.0); Mean Platelet Volume 8.5 fL (7.0-11.0); Mono # (Auto) 0.6 th/mm3 (0.0-0.9); Mono % (Auto) 8.5 % (0.0-8.0); Neut # (Auto) 3.4 th/mm3 (1.8-7.7); Neut % (Auto) 51.2 % (16.0-70.0); Platelet Count 162 th/mm3 (150-450); Red Blood Count 4.25 mil/mm3 (4.00-5.30); Red Cell Distribution Width 13.7 % (11.6-17.2); White Blood Count 6.7 th/mm3 (4.0-11.0)
[2018-01-16 06:23] LABS: Platelet Estimate Normal (Normal); Platelet Morphology Normal (Normal)
[2018-01-16] MEDS: Levothyroxine 75 MCG Tablet PO SCH (08:07)
[2018-01-16] MEDS: Pantoprazole Sodium 20 MG DR Tablet PO SCH (08:07)
[2018-01-16] MEDS: Heparin - SQ 10,000 UNITS/ML Vial SQ SCH (08:08)
--- NOTE | 2018-01-16 11:38 | P.PN ---
Subjective Interval history: The patient is in bed she is much better today. Says no abdominal cramps or muscle weakness no muscle cramps. She feels improved. Eating fairly well. No fever or chills no cough. No nausea vomiting no diarrhea constipation. Physical Exam Vital signs: Vital Signs 01/15/18 12:00 01/15/18 16:00 01/15/18 20:00 Temperature 97.7 F 97.8 F 97.8 F Pulse Rate 74 71 70 Respiratory Rate 20 20 20 Blood Pressure 123/79 165/91 H 144/76 H Pulse Oximetry 98 100 100 01/16/18 00:00 01/16/18 08:00 Temperature 98.5 F 97.8 F Pulse Rate 66 78 Respiratory Rate 20 16 Blood Pressure 166/88 H 126/73 Pulse Oximetry 96 100 Intake & Output 01/15/18 01/16/18 01/16/18 18:59 06:59 18:59 Intake Total 480 / 480 680 / 680 Balance 480 / 480 680 / 680 Weight 78.6 kg Intake: Oral 480 / 480 680 / 680 Other: # Voids 5 3 Date of Last Bowel Movement 01/16/18 01/16/18 # Bowel Movements 1 Narrative: GENERAL: Alert well-developed female. Alert, oriented. CARDIOVASCULAR: Regular rate and rhythm. RESPIRATORY: No accessory muscle use. Clear to auscultation. Breath sounds equal bilaterally. GASTROINTESTINAL: Abdomen soft, non-tender, nondistended. Hepatic and splenic margins not palpable. MUSCULOSKELETAL: Extremities without clubbing, cyanosis. Lower extremity edema. No obvious deformities. NEUROLOGICAL: Awake and alert. No obvious cranial nerve deficits. Motor grossly within normal limits. Five out of 5 muscle strength in the arms and legs. Normal speech. PSYCHIATRIC: Labile mood, tangential speech Results - Labs CBC & Chem 7: 01/16/18 04:46 01/16/18 04:46 Laboratory Results - last 24 hr 01/16/18 01/16/18 04:46 04:46 WBC 6.7 RBC 4.25 Hgb 11.9 Hct 35.9 MCV 84.4 MCH 28.0 MCHC 33.2 RDW 13.7 Plt Count 162 D MPV 8.5 Prelim Diff (Auto) Slide review pending Neut % (Auto) 51.2 Lymph % (Auto) 39.4 [place] % (Auto) 8.5 H Eos % (Auto) 0.1 Baso % (Auto) 0.8 Neut # (Auto) 3.4 Lymph # (Auto) 2.6 [place] # (Auto) 0.6 Eos # (Auto) 0.0 Baso # (Auto) 0.1 WBC Differential . Diff Scan Auto diff confirmed Differential Comment . Platelet Estimate Normal Platelet Morphology Normal Sodium 126 L Potassium 3.5 Chloride 93 L Carbon Dioxide 23.3 Anion Gap 10 BUN 7 Creatinine 0.75 Estimated GFR 81 L Random Glucose 91 Calcium 9.9 Assessment and Plan - Plan Hypotonic hyponatremia,. Na back to normal 118 upon admission, received NS bolus in the ER. Monitor sodium 01/15/18 - sodium 131 - TSH wnl. Etiology is not clear although the patient says she used to take "salt supplements." Thus check random urine sodium, urine osmolality. F/u lithium level. Medication induced SIADH vs GI losses - Echo today to r/o CHF due to LE edema Nausea/vomiting/diarrhea. Resolved - No GI symptoms now - History of chronic constipation and ischemic colitis for which she was on Xarelto. - Holding Xarelto for now and monitor for further GI symptoms, - Restart upon discharge. Acute shelley ?2/2 to metabolic disturbance but patient has extensive psych hx of schizophrenia and bipolar and long antipsychotic allergy list - lithium level 0.1 mL, UDS negative - Hold off on home medications of benztropine, oxcarbazepine, metoclopramide, psych consult pending Diabetes Monitor sugars for now -avoid metformin given possible GI upset hx for now -atorvastatin Hypothyroidism - continue home Synthroid Code Status: Full DVT prophylaxis: Heparin Discharge plan pending improvement, pending Psych recommendations poss going to inpatient psych or back to [facility]
[2018-01-16 12:21] VITALS: RESP 17
--- NOTE | 2018-01-16 16:14 | P.DS ---
Date of admission: 01/14/18 15:04 Primary care physician: No Primary Care Physician Brief History from admission: 52-year-old white female being admitted for acute hyponatremia and acute manic episode. Patient is a unreliable historian, history is largely otherwise obtained from emergency room physician and per phone call made to . I spoke with [facility] Emergency services, informed me that pt's caregiver/realtime court reporter by the name of Catina [place] [facility] [place] because she was having a manic episode. At patient conveyed that she has been vomiting and having diarrhea along with edematous. She also c/o "has to urinate but now it she is not urinating" and now believes that she needed to get medically cleared. As I approach the patient's room from a far to evaluate her, I can clearly see her talking but to no one in the room. Nurse affirms that she is talking by herself in the room. Upon asking the patient, she is able to verify that this is indeed a hospital and that the correct month is January, she gets the year wrong by 8 years mentioning that it is 2009. She mentions that she is here in the hospital because she wants to get herself Kumar acted so that she can switch her medications. The patient is very tangential in her thought process. As I review her chart and allergies, I asked her about Haldol Geodon and Seroquel and she mentions the exact same response to each one stating that it "breaks me out in hives." Her blood work in the emergency department showed no abnormalities except for acute hyponatremia with a sodium of 118. Social history and family history are noncontributory as the patient is unreliable given her acute manic state. Last seen 2 months ago 11/20 at her PCP's office per my phone conversation with pt's PCP nurse pracitioner. Pt used to be at [facility] but now apparently lives at some private assisted living arrangement. DS: Medications - Discharge Medications Prescriptions: olanzapine 5 mg PO BID #30 tab DS: Summary Hospital Course: Hypotonic hyponatremia. Na back to normal. 118 upon admission, received NS bolus in the ER. Monitor sodium 01/15/18 - sodium 131 - TSH wnl. Etiology is not clear although the patient says she used to take "salt supplements." Thus check random urine sodium, urine osmolality. F/u lithium level. Medication induced SIADH vs GI losses - Echo normal EF - DC tegretol and started on olanzapine per psyc. Discussed with Dr Dodson psych , appreciate recommendations Nausea/vomiting/diarrhea. Resolved. - No GI symptoms now - History of chronic constipation and ischemic colitis for which she was on Xarelto. - Holding Xarelto for now and monitor for further GI symptoms, - Restart upon discharge. Acute shelley ?2/2 to metabolic disturbance but patient has extensive psych hx of schizophrenia and bipolar and long antipsychotic allergy list - lithium level 0.1 mL, UDS negative - Hold off on home medications of benztropine, oxcarbazepine, metoclopramide, psych consult pending Diabetes Monitor sugars for now -avoid metformin given possible GI upset hx for now -atorvastatin Hypothyroidism - continue home Synthroid Code Status: Full DVT prophylaxis: Heparin Stable medically. DC to psych unit - Time Spent with Patient Total time spent providing and/or coordinating discharge services: Greater than 30 minutes - Quality: VTE Deep Vein Thrombosis/Pulmonary Embolism Present on Admission: No Exam Vital signs: Vital Signs 01/15/18 20:00 01/16/18 00:00 01/16/18 08:00 Temperature 97.8 F 98.5 F 97.8 F Pulse Rate 70 66 78 Respiratory Rate 20 20 16 Blood Pressure 144/76 H 166/88 H 126/73 Pulse Oximetry 100 96 100 01/16/18 12:00 Temperature 97.5 F L Pulse Rate 80 Respiratory Rate 17 Blood Pressure 135/88 Pulse Oximetry 100 Intake & Output 01/15/18 01/16/18 01/16/18 18:59 06:59 18:59 Intake Total 480 / 480 680 / 680 Balance 480 / 480 680 / 680 Weight 78.6 kg Intake: Oral 480 / 480 680 / 680 Other: # Voids 5 3 Date of Last Bowel Movement 01/16/18 01/16/18 # Bowel Movements 1 Narrative: GENERAL: Alert well-developed female. Alert, oriented. CARDIOVASCULAR: Regular rate and rhythm. RESPIRATORY: No accessory muscle use. Clear to auscultation. Breath sounds equal bilaterally. GASTROINTESTINAL: Abdomen soft, non-tender, nondistended. Hepatic and splenic margins not palpable. MUSCULOSKELETAL: Extremities without clubbing, cyanosis. Lower extremity edema. No obvious deformities. NEUROLOGICAL: Awake and alert. No obvious cranial nerve deficits. Motor grossly within normal limits. Five out of 5 muscle strength in the arms and legs. Normal speech. PSYCHIATRIC: Labile mood, tangential speech Results Procedures completed during hospitalization: none Labs on day of discharge: Labs from last 24 hours 01/16/18 01/16/18 04:46 04:46 WBC 6.7 RBC 4.25 Hgb 11.9 Hct 35.9 MCV 84.4 MCH 28.0 MCHC 33.2 RDW 13.7 Plt Count 162 D MPV 8.5 Prelim Diff (Auto) Slide review pending Neut % (Auto) 51.2 Lymph % (Auto) 39.4 [place] % (Auto) 8.5 H Eos % (Auto) 0.1 Baso % (Auto) 0.8 Neut # (Auto) 3.4 Lymph # (Auto) 2.6 [place] # (Auto) 0.6 Eos # (Auto) 0.0 Baso # (Auto) 0.1 WBC Differential . Diff Scan Auto diff confirmed Differential Comment . Platelet Estimate Normal Platelet Morphology Normal Sodium 126 L Potassium 3.5 Chloride 93 L Carbon Dioxide 23.3 Anion Gap 10 BUN 7 Creatinine 0.75 Estimated GFR 81 L Random Glucose 91 Calcium 9.9 Discharge Plan - Discharge Disposition Patient Disposition: 64 Disc To [facility] - Discharge Condition Condition: Stable - Discharge Order Discharge Orders: Discharge Order (Routine); Ordered 01/16/18 Ordered By: Saritha Delgadillo - Discharge Details Anticipated Discharge Date: 01/16/18 - Physicians Team Primary Care Provider: Primary Care Lidia Lozano Attending Provider: Saritah Delgadillo Other Providers: [employer],Insurance ; Dejan Dodson MD
[2018-01-16 17:08] VITALS: BP 131/78; PULSE 82; TEMP 98; O2SAT 99
[2018-01-16] MEDS ORDERED: Acetaminophen 325 MG Tablet PO PRN (17:17)
--- NOTE | 2018-01-16 20:03 | ECG ---
Date Performed: 01/15/2018 Time Performed: 20:23:42 PTAGE: 52 years EKG: Sinus rhythm NORMAL ECG PREVIOUS TRACING : 12/26/2015 12.16 Since the previous tracing, no significant change noted DOCTOR: Uche Pena Interpretating Date/Time 01/16/2018 20:01:39
== END 2018-01-16 18:50 ==
LOC: NEPD 12:43 → NEDA 15:04 → N04 16:42
PROVIDERS: ADMIT Hospitalist; ATTEND Hospitalist

== ENCOUNTER 2018-01-16 18:12 | Inpatient (IN) ==
[2018-01-16] MEDS ORDERED: Dextrose 50% in Water 50 ML Vial IV.PUSH PRN (20:21)
[2018-01-16] MEDS: Melatonin 5 MG Tablet PO PRN ×2 (21:38→23:27)
[2018-01-16] MEDS: Insulin NovoLOG Aspart Correctional Sugar Inj SQ SCH (21:39)
[2018-01-17] MEDS ORDERED: Sod Chloride 0.9% Inj 1,000 ML IV.CONT SCH (02:34)
[2018-01-17] MEDS: Insulin NovoLOG Aspart Correctional Sugar Inj SQ SCH ×5 (04:00→21:47)
[2018-01-17 08:26] LABS: Eos % (Auto) 0.4 % (0.0-4.0); Hematocrit 32.7 % (35.0-46.0); Hemoglobin 11.1 gm/dL (11.6-15.3); Lymph # (Auto) 1.7 th/mm3 (1.0-4.8); Lymph % (Auto) 40.9 % (9.0-44.0); Mean Corpuscular HGB Conc 33.9 % (32.0-36.0); Mean Corpuscular Hemoglobin 28.3 pg (27.0-34.0); Mean Corpuscular Volume 83.2 fL (80.0-100.0); Mono # (Auto) 0.5 th/mm3 (0.0-0.9); Neut # (Auto) 1.9 th/mm3 (1.8-7.7); Neut % (Auto) 45.7 % (16.0-70.0); Platelet Count 285 th/mm3 (150-450); Red Blood Count 3.93 mil/mm3 (4.00-5.30); Red Cell Distribution Width 13.6 % (11.6-17.2); White Blood Count 4.2 th/mm3 (4.0-11.0)
--- NOTE | 2018-01-17 08:37 | P.CON ---
History of Present Illness Service: [facility] Consult date: 01/17/18 Requesting Physician: Landon Garcia Reason for Consult: Assist with med management, hyponatremia Primary Care Provider: UNKNOWN Chief Complaint: "They lost my purse" History of Present Illness: 52-year-old white female with PMHx DM2, hyponatremia, Chronic constipation, bipolar DO being admitted for acute hyponatremia and acute manic episode. She is now admitted to medical psychiatry unit for further evaluation. Consulted for assistance with medical management. Patient was seen and followed by hospitalist group and inpatient. Patient seen and examined today. She is sitting in the Raquel chair with IV fluids on her side. She reports that her main problem and main concern is that "I lost my person is a very Blu, is very expensive."Patient started crying with tears in her eyes started to elaborate on stories about the issac ring, engagement ring that she had lost and also some earrings that she has lost. Reassurance provided. Patient was redirected to medical concerns. States that she had problems with her abdomen, chronic constipation, reflux. States that she was on Xarelto for right lower extremity DVT. She also states that ultrasound was done on it and they could not find a DVT. She did not has intangible thoughts. Needs to be redirected all the time. Unreliable historian. Most of her histories are taken from previous admissions and review of records. Denies pain or discomfort, fevers, chills, chest pain complaints of mid epigastric pain only when palpated. States she ate her breakfast. After examined conversation with patient having tearful moments when the TV was turned on to the music all of a sudden the patient starts dancing. Review of Systems unobtainable due to mental condition Comments: Unreliable historian [facility] - History History Provided By: Patient - Medical / Surgical Hx Neg / Unobtainable Surgical History: No Previous Surgery - Medical History Medical History: Medical History (Last Reviewed 01/17/18 @ 13:43 by ZIA Lehman) Anemia Bipolar 1 disorder Depression Hyperlipidemia Hypertension Hypothyroid Schizophrenia - Family History Family History: Family History (Last Updated 01/17/18 @ 13:43 by ZIA Lehman) Other Family history unknown - Social History I have reviewed the patient's Social History: Yes - Tobacco History Second Hand Smoke Exposure: No Smoking Status: Never smoker - Alcohol History How Often Do You Have a Drink Containing Alcohol: 4 or more times a week - Substance Use History Substance History: No History of Abuse - Immunization History Tetanus Immunization: Unsure Hx Influenza Vaccine This Season: Yes Medications and Allergies Active Medications: Active Medications Acetaminophen (Tylenol) 650 mg PO Q4H PRN PRN Reason: Pain 1-5 or Temp >101F Al Hydrox/Mg Hydrox/Simethicone (Mag-Al Plus Susp Liq) 30 ml PO Q6H PRN PRN Reason: DYSPEPSIA Al Hydroxide/Mg Hydroxide (Milk Of Magnesia Liq) 30 ml PO Q12H PRN PRN Reason: Mild Constipation Dextrose (D50w Vial) 50 ml IV.PUSH UNSCH PRN PRN Reason: PER HYPOGLYCEMIA PROTOCOL Glucagon (Glucagon Inj) 1 mg OTHER PRN PRN PRN Reason: for Hypoglycemia Protocol Sodium Chloride (Ns Inj) 1,000 mls @ 84 mls/hr IV.CONT .[id number] [facility] Last Admin: 01/17/18 02:45 Dose: 84 mls/hr Insulin Aspart (Novolog Insulin Correctional Sugar Inj) 0 unit SQ ACHS AND 3AM [facility]; Protocol Last Admin: 01/17/18 07:41 Dose: Not Given Melatonin (Melatonin) 5 mg PO HS PRN PRN Reason: INSOMNIA Last Admin: 01/16/18 23:27 Dose: 5 mg Sodium Chloride (Sodium Chloride) 1 gm PO BID [facility] Allergies Allergy/AdvReac Type Severity Reaction Status Date / Time divalproex sodium Allergy Severe unknown Unverified 01/14/18 12:58 haloperidol [From Haldol] Allergy Unknown UNKNOWN Verified 01/14/18 13:57 lamotrigine Allergy Unknown unknown Unverified 01/14/18 12:58 ziprasidone Allergy Unknown unknown Unverified 01/14/18 12:58 quetiapine AdvReac Severe Hallucinati Unverified 01/14/18 12:58 ons TAPE Allergy Unknown Rash Uncoded 01/14/18 12:58 Home Medications Medication Instructions Recorded Confirmed Type atorvastatin 40 mg PO DAILY 01/14/18 01/14/18 History benztropine 1 mg PO DAILY 01/14/18 01/14/18 History brexpiprazole [Rexulti] 3 mg PO DAILY 01/14/18 01/14/18 History levothyroxine 75 mcg PO DAILY 01/14/18 01/14/18 History metformin 1,000 mg PO BID 01/14/18 01/14/18 History metoclopramide HCl 5 mg PO QID 01/14/18 01/14/18 History multivitamin 1 cap PO QAM 01/14/18 01/14/18 History omeprazole 20 mg PO DAILY 01/14/18 01/14/18 History rivaroxaban [Xarelto] 10 mg PO DAILY 01/14/18 01/14/18 History Physical Exam Vital signs: Vital Signs 01/16/18 19:57 01/17/18 05:45 Temperature 97.9 F 97.6 F Pulse Rate 82 64 Respiratory Rate 18 18 Blood Pressure 129/81 144/83 H Pulse Oximetry 95 99 Intake & Output 01/16/18 01/17/18 01/17/18 18:59 06:59 18:59 Weight 80 kg Other: Weight On Admission 80 kg Narrative: GENERAL: This is a well-nourished, well-developed patient, in no apparent distress. SKIN: Warm and dry HEENT: Normocephalic. Pupils equal round and reactive. Nose without bleeding. Airway patent. NECK: Trachea midline. CARDIOVASCULAR: Regular rate and rhythm without murmurs, gallops, or rubs. RESPIRATORY: Clear to auscultation. Breath sounds equal bilaterally. No wheezes , rales, or rhonchi. GASTROINTESTINAL: Abdomen soft, nondistended. Bowel Sounds normoactive x4. Tenderness to palpate midepigastric region. MUSCULOSKELETAL: Extremities without clubbing, cyanosis, or edema. NEUROLOGICAL: Awake and alert. No focal neuro deficit. Moves all extremities. Varying speech. Manic. Tearful on and off. Assessment and Plan - Plan 52-year-old white female being admitted for acute hyponatremia and acute shelley. Hypotonic hyponatremia 118 upon admission, received NS bolus in the ER. Monitor sodium sodium 131 -->127 --> 137 -TSH wnl. Etiology is not clear although the patient says she used to take "salt supplements." -Random urine sodium wn, urine osmolality low. F/u lithium level. Possible medication induced SIADH vs GI losses -Echo 60-65% -IV fluids, to be dcd when improved. Sodium tabs daily Nausea/vomiting/diarrhea. Resolved -No GI symptoms now -History of chronic constipation and ischemic colitis? for which she was on Xarelto. -Restart Xarelto for now and monitor for further GI symptoms, Right lower extremity DVT ? -Days she is taking Xarelto secondary to right lower extremity DVT versus ischemic colitis. Acute shelley ?2/2 to metabolic disturbance but patient has extensive psych hx of schizophrenia and bipolar and long antipsychotic allergy list - lithium level 0.1 mL, UDS negative - Hold off on home medications of benztropine, oxcarbazepine, psych consult pending Diabetes Monitor sugars for now -Metformin 500mg BID, lower dose - Cont atorvastatin Hypothyroidism - continue home Synthroid DVT prop Xarelto Code Status: Full Code Discussed Condition With: Patient, nursing Discharge Planning: DC disposition by primary team
[2018-01-17 08:56] LABS: Calcium 9.5 mg/dL (8.5-10.1); Carbon Dioxide 24.9 meq/L (21.0-32.0); Chol/HDL Ratio 2.29 Ratio; HDL Cholesterol 54.5 mg/dL (40.0-60.0); Potassium 3.9 meq/L (3.5-5.1)
[2018-01-17] MEDS ORDERED: Sodium Chloride 1 GM Tablet PO SCH (09:00)
[2018-01-17] MEDS ORDERED: Sodium Chloride 0.9% 2 ML Flush PRN IV.FLUSH (11:46)
[2018-01-17 13:10] LABS: Hemoglobin A1c 5.7 % (4.3-6.0)
[2018-01-17] MEDS: Pantoprazole Sodium 20 MG DR Tablet PO SCH (13:44)
[2018-01-17] MEDS: Levothyroxine 75 MCG Tablet PO SCH (13:44)
[2018-01-17] MEDS: Rivaroxaban 10 MG Tablet PO SCH (14:29)
[2018-01-17] MEDS: Metoclopramide 10 MG Tablet PO SCH ×4 (15:14→21:27)
--- NOTE | 2018-01-17 18:21 | P.HPPSY ---
Provisional Diagnosis Admission Date: January 16, 2018 18:54 Competence Certification of Person's Competence To Provide Express and Informed Consent I have personally examined Concha Evans, a person being served at [facility] on, January 17, 2018 1816. Express and informed consent means consent voluntarily given in writing, by a competent person, after sufficient explanation and disclosure of the subject matter involved to enable the person to make a knowing and willful decision without any element of force, fraud, deceit, duress, or other form of constraint or coercion. This person is 18 years of age or older, is not now known to be incompetent to consent to treatment with a guardian advocate, and does not have a health care surrogate or proxy currently making medical treatment decisions. I have found this person to be one of the following: [] Competent to provide express and informed consent, as defined above, for voluntary admission to this facility and is competent to provide express and informed consent for treatment. He/she has the consistent capacity to make well reasoned, willful, and knowing decisions concerning his or her medical or mental health treatment. The person fully and consistently understands the purpose of the admission for examination/placement and is fully capable of personally exercising all rights assured [place]X] Incompetent to provide express and informed consent to voluntary admission, and this is incompetent to provide express and informed consent to treatment. The person must be transferred to involuntary status and a petition for a guardian advocate filed with the Circuit Court. [] Refusing to provide express and informed consent to voluntary admission but is competent to provide express and informed consent for treatment. The person must be discharged or transferred to involuntary status. Form shall be completed within 24 hours of a person's arrival at the receiving facility and filed in the clinical record of each person: 1. Admitted on a voluntary basis 2. Permitted to provide express and informed consent to his/her own treatment 3. Allowed to transfer from involuntary to voluntary status 4. Prior to permitting a person to consent to his or her own treatment after having been previously found incompetent to consent to treatment. History of Present Illness Capacity: Lacks capacity Chief Complaint: Bipolar History of Present Illness: Patient is a 52-year-old female with a history of bipolar disorder. She remains quite symptomatic. She is very pressured, hyperactive, increased energy , poor sleep, grandiose and euphoric. She does note irritability last night going on a tirade against her sitter. She admits to auditory hallucinations of Chauncey. Responding to ideas of reference from the TV. He does deny suicidal or homicidal ideation intent or plan Past psych: Patient has been diagnosed with bipolar and sees Dr. Schumacher on an outpatient basis. She is unaware what medication she was on. She denies a history of suicide attempts but says she does have a history of thoughts. Past medical: Recent episode of ischemic colitis Past Famhx: Unsure Past Social: Patient admits to regular use of cannabis and irregular use of alcohol. 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 This includes certification that hospital inpatient services are reasonable and necessary and in the case of services not specified as inpatient-only under 42 CFR 419.22(n), that they are appropriately provided as inpatient services in accordance to with the 2-midnight benchmark under 43 CFR 412.3(e) I certify that inpatient psychiatric hospital services are medically necessary. Evaluation and treatment and/or diagnostic testing are expected to improve the patient's condition. The patient needs on a daily basis, active treatment furnished directly by or requiring the supervision of inpatient psychiatric facility personnel. Estimated Total Length of Stay (Days): 7 Plans for Post Hospital Care: Not yet determined Review of Systems All other systems reviewed negative except as stated in HPI [facility] - History History Provided By: Patient - Medical History Medical History: Medical History (Last Reviewed 01/17/18 @ 18:19 by Winston Ely DO) Anemia Bipolar 1 disorder Depression Hyperlipidemia Hypertension Hypothyroid Schizophrenia - Family History Family History: Family History (Last Reviewed 01/17/18 @ 18:19 by Winston Eyl DO) Other Family history unknown - Tobacco History Second Hand Smoke Exposure: No Smoking Status: Never smoker - Alcohol History How Often Do You Have a Drink Containing Alcohol: 4 or more times a week - Substance Use History Substance History: No History of Abuse - Immunization History Tetanus Immunization: Unsure Hx Influenza Vaccine This Season: Yes Medications and Allergies Active Medications: Active Medications Acetaminophen (Tylenol) 650 mg PO Q4H PRN PRN Reason: Pain 1-5 or Temp >101F Al Hydrox/Mg Hydrox/Simethicone (Mag-Al Plus Susp Liq) 30 ml PO Q6H PRN PRN Reason: DYSPEPSIA Al Hydroxide/Mg Hydroxide (Milk Of Magnesia Liq) 30 ml PO Q12H PRN PRN Reason: Mild Constipation Atorvastatin Calcium (Lipitor) 40 mg PO DAILY [facility] Last Admin: 01/17/18 13:43 Dose: 40 mg Dextrose (D50w Vial) 50 ml IV.PUSH UNSCH PRN PRN Reason: PER HYPOGLYCEMIA PROTOCOL Glucagon (Glucagon Inj) 1 mg OTHER PRN PRN PRN Reason: for Hypoglycemia Protocol Insulin Aspart (Novolog Insulin Correctional Sugar Inj) 0 unit SQ ACHS AND 3AM [facility]; Protocol Last Admin: 01/17/18 16:37 Dose: Not Given Levothyroxine Sodium (Synthroid) 75 mcg PO DAILY@0600 [facility] Last Admin: 01/17/18 13:44 Dose: 75 mcg Melatonin (Melatonin) 5 mg PO HS PRN PRN Reason: INSOMNIA Last Admin: 01/16/18 23:27 Dose: 5 mg Metformin HCl (Glucophage) 500 mg PO BIDPC [facility] Last Admin: 01/17/18 18:16 Dose: Not Given Metoclopramide HCl (Reglan) 5 mg PO QID [facility] Last Admin: 01/17/18 18:15 Dose: Not Given Miscellaneous (Pill Splitter) 1 each OTHER UNSCH PRN PRN Reason: SEE LABEL COMMENTS Multivitamins (Theragran) 1 tab PO DAILY [facility] Last Admin: 01/17/18 13:43 Dose: 1 tab Padimate O (Chapstick) 1 applicatio TOPICAL UNSCH PRN PRN Reason: Dry lips Last Admin: 01/17/18 14:30 Dose: 1 applicatio Pantoprazole Sodium (Protonix) 20 mg PO DAILY [facility] Last Admin: 01/17/18 13:44 Dose: 20 mg Rivaroxaban (Xarelto) 10 mg PO DAILY [facility] Last Admin: 01/17/18 14:29 Dose: 10 mg Sodium Chloride (Ns Flush) 2 ml IV.FLUSH BID [facility] Sodium Chloride (Ns Flush) 2 ml IV.FLUSH PRN PRN PRN Reason: FLUSH AFTER USING IV ACCESS Sodium Chloride (Sodium Chloride) 1 gm PO DAILY [facility] Allergies Allergy/AdvReac Type Severity Reaction Status Date / Time divalproex sodium Allergy Severe unknown Unverified 01/14/18 12:58 haloperidol [From Haldol] Allergy Unknown UNKNOWN Verified 01/14/18 13:57 lamotrigine Allergy Unknown unknown Unverified 01/14/18 12:58 ziprasidone Allergy Unknown unknown Unverified 01/14/18 12:58 quetiapine AdvReac Severe Hallucinati Unverified 01/14/18 12:58 ons TAPE Allergy Unknown Rash Uncoded 01/14/18 12:58 Home Medications Medication Instructions Recorded Confirmed Type atorvastatin 40 mg PO DAILY 01/14/18 01/14/18 History benztropine 1 mg PO DAILY 01/14/18 01/14/18 History brexpiprazole [Rexulti] 3 mg PO DAILY 01/14/18 01/14/18 History levothyroxine 75 mcg PO DAILY 01/14/18 01/14/18 History metformin 1,000 mg PO BID 01/14/18 01/14/18 History metoclopramide HCl 5 mg PO QID 01/14/18 01/14/18 History multivitamin 1 cap PO QAM 01/14/18 01/14/18 History omeprazole 20 mg PO DAILY 01/14/18 01/14/18 History rivaroxaban [Xarelto] 10 mg PO DAILY 01/14/18 01/14/18 History Results - Labs CBC & Chem 7: 01/17/18 06:48 01/17/18 06:48 Labs: Laboratory Results - last 24 hr 01/16/18 01/17/18 01/17/18 21:14 06:48 06:48 WBC RBC Hgb Hct MCV MCH MCHC RDW Plt Count MPV Neut % (Auto) Lymph % (Auto) [place] % (Auto) Eos % (Auto) Baso % (Auto) Neut # (Auto) Lymph # (Auto) [place] # (Auto) Eos # (Auto) Baso # (Auto) WBC Differential Differential Comment Sodium 137 D Potassium 3.9 Chloride 105 D Carbon Dioxide 24.9 Anion Gap 7 BUN 7 Creatinine 0.74 Estimated GFR 82 L POC Glucose 114 H Random Glucose 88 Hemoglobin A1c 5.7 Calcium 9.5 Triglycerides 70 Cholesterol 125 LDL Cholesterol, Calc 57 HDL Cholesterol 54.5 Cholesterol/HDL Ratio 2.29 01/17/18 01/17/18 01/17/18 06:48 07:17 11:41 WBC 4.2 RBC 3.93 L Hgb 11.1 L Hct 32.7 L MCV 83.2 MCH 28.3 MCHC 33.9 RDW 13.6 Plt Count 285 D MPV 8.0 Neut % (Auto) 45.7 Lymph % (Auto) 40.9 [place] % (Auto) 12.0 H Eos % (Auto) 0.4 Baso % (Auto) 1.0 Neut # (Auto) 1.9 Lymph # (Auto) 1.7 [place] # (Auto) 0.5 Eos # (Auto) 0.0 Baso # (Auto) 0.0 WBC Differential . Differential Comment Auto diff final Sodium Potassium Chloride Carbon Dioxide Anion Gap BUN Creatinine Estimated GFR POC Glucose 94 101 Random Glucose Hemoglobin A1c Calcium Triglycerides Cholesterol LDL Cholesterol, Calc HDL Cholesterol Cholesterol/HDL Ratio 01/17/18 16:33 WBC RBC Hgb Hct MCV MCH MCHC RDW Plt Count MPV Neut % (Auto) Lymph % (Auto) [place] % (Auto) Eos % (Auto) Baso % (Auto) Neut # (Auto) Lymph # (Auto) [place] # (Auto) Eos # (Auto) Baso # (Auto) WBC Differential Differential Comment Sodium Potassium Chloride Carbon Dioxide Anion Gap BUN Creatinine Estimated GFR POC Glucose 86 Random Glucose Hemoglobin A1c Calcium Triglycerides Cholesterol LDL Cholesterol, Calc HDL Cholesterol Cholesterol/HDL Ratio Exam Vital signs: Vital Signs 01/16/18 19:57 01/17/18 05:45 Temperature 97.9 F 97.6 F Pulse Rate 82 64 Respiratory Rate 18 18 Blood Pressure 129/81 144/83 H Pulse Oximetry 95 99 Intake & Output 01/16/18 01/17/18 01/17/18 18:59 06:59 18:59 Intake Total 950 / 950 Balance 950 / 950 Weight 80 kg Intake: IV 950 / 950 NS Inj 1,000 ML @ 84 mls/hr IV. 950 / 950 CONT .[id number] [facility] Rx#:[id number] Other: Date of Last Bowel Movement 01/17/18 Weight On Admission 80 kg Mental Status Examination Appearance: Disheveled Consciousness: Alert Orientation: x4 Motor Activity: Normal gait Speech: Pressured, Rapid Language: Perseveration Fund of Knowledge: Adequate Attention and Concentration: Easily distracted Memory: Impaired Mood: Manic Affect: Other (Euphoric) Thought Process & Associations: Tangential Thought Content: Bizarre thinking, Hallucinations Delusion Type: Bizarre, Paranoid Suicidal Ideation: No Suicidal Plan: No Suicidal Intention: No Homicidal Ideation: No Homicidal Plan: No Homicidal Intention: No Insight: Poor Judgment: Poor Assessment and Plan - Assessment (1) Bipolar affective, manic, severe w/ psych Code(s): F31.2 - Bipolar disorder, current episode manic severe with psychotic features Status: Acute (2) Cannabis abuse Code(s): F12.10 - Cannabis abuse, uncomplicated Status: Acute - Plan Plan: Estimated LOS: [] days Given patient state of mind she does not have capacity to make her own medical decisions. We will petition her and obtain a proxy from her sister and then start treatment for bipolar shelley Justification for Continued Inpatient Stay: Patient would decompensate in a less restrictive setting
[2018-01-17] MEDS: Acetaminophen 325 MG Tablet PO PRN (21:27)
[2018-01-17] MEDS: Sodium Chloride 0.9% 2 ML Flush BID IV.FLUSH SCH (21:46)
[2018-01-17] MEDS: Melatonin 5 MG Tablet PO PRN (22:37)
[2018-01-18] MEDS: Insulin NovoLOG Aspart Correctional Sugar Inj SQ SCH ×5 (04:18→20:55)
[2018-01-18] MEDS: Acetaminophen 325 MG Tablet PO PRN ×2 (04:40→13:56)
[2018-01-18] MEDS: Levothyroxine 75 MCG Tablet PO SCH (05:39)
--- NOTE | 2018-01-18 08:30 | P.PN ---
Subjective Interval history: Follow-up visit hypotonic hyponatremia, DM. Patient seen and examined today. Patient is hyperverbal. Very somatic. Complaints of everything in her room none medical from bed to remote control. Requesting for all natural medications for sleep. Complaints of neck pain, back pain, states that has not been able to take naps. States that neck pain and back pain has been bothering her for months. Denies any nausea, vomiting, diarrhea. His abdominal pain or cramping. Denies headaches, chest pain, fevers, chills. Physical Exam Vital signs: Vital Signs 01/17/18 18:00 01/18/18 06:26 Temperature 98.1 F 98.5 F Pulse Rate 72 82 Respiratory Rate 20 20 Blood Pressure 150/71 H 155/76 H Pulse Oximetry 99 98 Intake & Output 01/17/18 01/18/18 01/18/18 18:59 06:59 18:59 Intake Total 950 / 950 960 / 960 Balance 950 / 950 960 / 960 Intake: IV 950 / 950 NS Inj 1,000 ML @ 84 mls/hr IV. 950 / 950 CONT .[id number] [facility] Rx#:[id number] Oral 960 / 960 Other: # Voids 3 Date of Last Bowel Movement 01/17/18 Narrative: GENERAL: This is a well-nourished, well-developed patient, in no apparent distress. SKIN: Warm and dry HEENT: Normocephalic. Pupils equal round and reactive. Nose without bleeding. Airway patent. NECK: Trachea midline. CARDIOVASCULAR: Regular rate and rhythm without murmurs, gallops, or rubs. RESPIRATORY: Clear to auscultation. Breath sounds equal bilaterally. No wheezes , rales, or rhonchi. GASTROINTESTINAL: Abdomen soft, nondistended. Bowel Sounds normoactive x4. MUSCULOSKELETAL: Extremities without clubbing, cyanosis, or edema. NEUROLOGICAL: Awake and alert. No focal neuro deficit. Moves all extremities. Hyperverbal. Results - Labs CBC & Chem 7: 01/17/18 06:48 01/17/18 06:48 Laboratory Results - last 24 hr 01/17/18 01/17/18 01/17/18 06:48 06:48 11:41 Sodium 137 D Potassium 3.9 Chloride 105 D Carbon Dioxide 24.9 Anion Gap 7 BUN 7 Creatinine 0.74 Estimated GFR 82 L POC Glucose 101 Random Glucose 88 Hemoglobin A1c 5.7 Calcium 9.5 Triglycerides 70 Cholesterol 125 LDL Cholesterol, Calc 57 HDL Cholesterol 54.5 Cholesterol/HDL Ratio 2.29 01/17/18 01/17/18 01/18/18 16:33 21:44 04:15 Sodium Potassium Chloride Carbon Dioxide Anion Gap BUN Creatinine Estimated GFR POC Glucose 86 91 80 Random Glucose Hemoglobin A1c Calcium Triglycerides Cholesterol LDL Cholesterol, Calc HDL Cholesterol Cholesterol/HDL Ratio 01/18/18 07:38 Sodium Potassium Chloride Carbon Dioxide Anion Gap BUN Creatinine Estimated GFR POC Glucose 100 Random Glucose Hemoglobin A1c Calcium Triglycerides Cholesterol LDL Cholesterol, Calc HDL Cholesterol Cholesterol/HDL Ratio Assessment and Plan - Plan 52-year-old white female being admitted for acute hyponatremia and acute shelley. Hypotonic hyponatremia 118 upon admission, received NS bolus in the ER. Monitor sodium sodium 131 -->127 --> 137 -TSH wnl. Etiology is not clear although the patient says she used to take "salt supplements." -Random urine sodium wn, urine osmolality low. F/u lithium level. Possible medication induced SIADH vs GI losses -Echo 60-65% -IV fluids DC -Sodium tabs daily. Monitor sodium. Nausea/vomiting/diarrhea -improved -No GI symptoms now -History of chronic constipation and ischemic colitis? for which she was on Xarelto. -Restart Xarelto for now and monitor for further GI symptoms, -Improved symptoms. Lactinex daily. Neck pain Back pain -Possibly chronic. Alternate ibuprofen, Tylenol. Right lower extremity DVT ? -States she is taking Xarelto secondary to right lower extremity DVT versus ischemic colitis. Acute shelley ?2/2 to metabolic disturbance but patient has extensive psych hx of schizophrenia and bipolar and long antipsychotic allergy list - lithium level 0.1 mL, UDS negative - Hold off on home medications of benztropine, oxcarbazepine, psych consult pending Diabetes T2, controlled Monitor sugars for now -Metformin 500mg BID, lower dose - home dose 1,000mg - Cont atorvastatin -Follow up with PCP in 3 months, may cont to lower dose Hypothyroidism - continue home Synthroid DVT prop Xarelto Full code Discussed with patient, nursing Discharge Planning: DC disposition by primary team
[2018-01-18] MEDS: Pantoprazole Sodium 20 MG DR Tablet PO SCH (09:06)
[2018-01-18] MEDS: Rivaroxaban 10 MG Tablet PO SCH (09:06)
[2018-01-18] MEDS: Metoclopramide 10 MG Tablet PO SCH ×4 (09:07→20:57)
[2018-01-18] MEDS: Sodium Chloride 1 GM Tablet PO SCH (09:07)
[2018-01-18] MEDS: Sodium Chloride 0.9% 2 ML Flush BID IV.FLUSH SCH ×2 (09:53→20:56)
--- NOTE | 2018-01-18 13:12 | P.PNPSY ---
Subjective Chief Complaint: Bipolar Remarks: Patient was seen and case discussed with nursing. We are continuing to wait for consent for medication. Patient remains manic, hyperverbal, pressured, hyperactive. She is grandiose and has auditory hallucinations from God. She does deny suicidal or homicidal ideation intent Mental Status Examination Appearance: Disheveled Consciousness: Alert Orientation: x4 Motor Activity: Normal gait Speech: Pressured, Rapid Language: Perseveration Fund of Knowledge: Adequate Attention and Concentration: Easily distracted Memory: Impaired Mood: Manic Affect: Other (Euphoric) Thought Process & Associations: Tangential Thought Content: Bizarre thinking, Hallucinations Delusion Type: Bizarre, Paranoid Suicidal Ideation: No Suicidal Plan: No Suicidal Intention: No Homicidal Ideation: No Homicidal Plan: No Homicidal Intention: No Insight: Poor Judgment: Poor Assessment and Plan - Assessment (1) Bipolar affective, manic, severe w/ psych Code(s): F31.2 - Bipolar disorder, current episode manic severe with psychotic features Status: Acute (2) Cannabis abuse Code(s): F12.10 - Cannabis abuse, uncomplicated Status: Acute - Plan Plan: Second opinion is pending. We can obtain consent for medication after second opinion is completed. Justification for Continued Inpatient Stay: Patient would decompensate in a less restrictive setting
--- NOTE | 2018-01-18 13:50 | P.CONPSY ---
Provisional Diagnosis Admission Date: January 16, 2018 18:54 [place].: Bipolar disorder current episode manic severe with psychotic features History of Present Illness Service: Psychiatry Consult date: 01/18/18 Requesting Physician: Winston Ely Reason for Consult: Second opinion petition supporting [facility] [employer] Primary Care Provider: UNKNOWN Chief Complaint: "They lost my purse" History of Present Illness: Patient is a 52 white female admitted to Dr. Winston Ely's H&P reviewed and agreed with. Dr. Ely is done first opinion petition supporting [facility] [employer]. I agree. Patient meets criteria for involuntary psychiatric hospitalization of the [facility] [employer]. Patient seen in her room with nurse Cira patient is flagrantly manic she is loud and intrusive hypersexual quite flirtatious, with rapid pressured speech she acknowledges racing thoughts. Still confused and disoriented as to everything that is going on around her. This I will cosign second opinion petition Review of Systems All other systems reviewed negative except as stated in HPI PMFSH - History History Provided By: Patient - Medical History Medical History: Medical History (Last Reviewed 01/17/18 @ 18:19 by Winston Ely DO) Anemia Bipolar 1 disorder Depression Hyperlipidemia Hypertension Hypothyroid Schizophrenia - Family History Family History: Family History (Last Reviewed 01/17/18 @ 18:19 by Winston Ely DO) Other Family history unknown - Tobacco History Second Hand Smoke Exposure: No Smoking Status: Never smoker - Alcohol History How Often Do You Have a Drink Containing Alcohol: 4 or more times a week - Substance Use History Substance History: Unable to Obtain - Immunization History Tetanus Immunization: Unsure Hx Influenza Vaccine This Season: Yes Medications and Allergies Active Medications: Active Medications Acetaminophen (Tylenol) 650 mg PO Q4H PRN PRN Reason: Pain 1-5 or Temp >101F Last Admin: 01/18/18 04:40 Dose: 650 mg Al Hydrox/Mg Hydrox/Simethicone (Mag-Al Plus Susp Liq) 30 ml PO Q6H PRN PRN Reason: DYSPEPSIA Al Hydroxide/Mg Hydroxide (Milk Of Magnesia Liq) 30 ml PO Q12H PRN PRN Reason: Mild Constipation Atorvastatin Calcium (Lipitor) 40 mg PO DAILY [facility]AMZAH Last Admin: 01/18/18 09:06 Dose: 40 mg Dextrose (D50w Vial) 50 ml IV.PUSH UNSCH PRN PRN Reason: PER HYPOGLYCEMIA PROTOCOL Glucagon (Glucagon Inj) 1 mg OTHER PRN PRN PRN Reason: for Hypoglycemia Protocol Insulin Aspart (Novolog Insulin Correctional Sugar Inj) 0 unit SQ ACHS AND 3AM HAMZAH; Protocol Last Admin: 01/18/18 11:38 Dose: Not Given Levothyroxine Sodium (Synthroid) 75 mcg PO DAILY@0600 [facility] Last Admin: 01/18/18 05:39 Dose: 75 mcg Melatonin (Melatonin) 5 mg PO HS PRN PRN Reason: INSOMNIA Last Admin: 01/17/18 22:37 Dose: 5 mg Metformin HCl (Glucophage) 500 mg PO BIDPC [facility] Last Admin: 01/18/18 09:07 Dose: 500 mg Metoclopramide HCl (Reglan) 5 mg PO QID [facility] Last Admin: 01/18/18 13:29 Dose: 5 mg Miscellaneous (Pill Splitter) 1 each OTHER UNSCH PRN PRN Reason: SEE LABEL COMMENTS Multivitamins (Theragran) 1 tab PO DAILY [facility] Last Admin: 01/18/18 09:07 Dose: 1 tab Padimate O (Chapstick) 1 applicatio TOPICAL UNSCH PRN PRN Reason: Dry lips Last Admin: 01/17/18 14:30 Dose: 1 applicatio Pantoprazole Sodium (Protonix) 20 mg PO DAILY [facility] Last Admin: 01/18/18 09:06 Dose: 20 mg Rivaroxaban (Xarelto) 10 mg PO DAILY [facility] Last Admin: 01/18/18 09:06 Dose: 10 mg Sodium Chloride (Ns Flush) 2 ml IV.FLUSH BID [facility] Last Admin: 01/18/18 09:53 Dose: Not Given Sodium Chloride (Ns Flush) 2 ml IV.FLUSH PRN PRN PRN Reason: FLUSH AFTER USING IV ACCESS Sodium Chloride (Sodium Chloride) 1 gm PO DAILY [facility] Last Admin: 01/18/18 09:07 Dose: 1 gm Allergies Allergy/AdvReac Type Severity Reaction Status Date / Time divalproex sodium Allergy Severe unknown Unverified 01/14/18 12:58 haloperidol [From Haldol] Allergy Unknown UNKNOWN Verified 01/14/18 13:57 lamotrigine Allergy Unknown unknown Unverified 01/14/18 12:58 ziprasidone Allergy Unknown unknown Unverified 01/14/18 12:58 quetiapine AdvReac Severe Hallucinati Unverified 01/14/18 12:58 ons TAPE Allergy Unknown Rash Uncoded 01/14/18 12:58 Home Medications Medication Instructions Recorded Confirmed Type atorvastatin 40 mg PO DAILY 01/14/18 01/14/18 History benztropine 1 mg PO DAILY 01/14/18 01/14/18 History brexpiprazole [Rexulti] 3 mg PO DAILY 01/14/18 01/14/18 History levothyroxine 75 mcg PO DAILY 01/14/18 01/14/18 History metformin 1,000 mg PO BID 01/14/18 01/14/18 History metoclopramide HCl 5 mg PO QID 01/14/18 01/14/18 History multivitamin 1 cap PO QAM 01/14/18 01/14/18 History omeprazole 20 mg PO DAILY 01/14/18 01/14/18 History rivaroxaban [Xarelto] 10 mg PO DAILY 01/14/18 01/14/18 History Exam Vital signs: Vital Signs 01/17/18 18:00 01/18/18 06:26 Temperature 98.1 F 98.5 F Pulse Rate 72 82 Respiratory Rate 20 20 Blood Pressure 150/71 H 155/76 H Pulse Oximetry 99 98 Intake & Output 01/17/18 01/18/18 01/18/18 18:59 06:59 18:59 Intake Total 950 / 950 960 / 960 720 / 720 Balance 950 / 950 960 / 960 720 / 720 Intake: IV 950 / 950 NS Inj 1,000 ML @ 84 mls/hr IV. 950 / 950 CONT .[id number] [facility] Rx#:[id number] Oral 960 / 960 720 / 720 Other: # Voids 3 Date of Last Bowel Movement 01/17/18 Narrative: Patient sitting in a somewhat aroused state in her room she is in no acute distress, no respiratory distress, no complaints of chest pain or abdominal pain. Patient moving all 4 extremities without difficulty Mental Status Examination Appearance: Disheveled Consciousness: Alert Orientation: x4 Motor Activity: Normal gait Speech: Pressured, Rapid Language: Perseveration Fund of Knowledge: Adequate Attention and Concentration: Easily distracted Memory: Impaired Mood: Manic Affect: Other (Euphoric) Thought Process & Associations: Tangential Thought Content: Bizarre thinking, Hallucinations Delusion Type: Bizarre, Paranoid Suicidal Ideation: No Suicidal Plan: No Suicidal Intention: No Homicidal Ideation: No Homicidal Plan: No Homicidal Intention: No Insight: Poor Judgment: Poor Assessment and Plan - Assessment (1) Bipolar affective, manic, severe w/ psych Code(s): F31.2 - Bipolar disorder, current episode manic severe with psychotic features Status: Acute (2) Cannabis abuse Code(s): F12.10 - Cannabis abuse, uncomplicated Status: Acute - Plan Plan: Patient meets criteria for under the Kumar act thus I will cosign second opinion petition supporting Kumar act Justification for Continued Inpatient Stay: At this time patient would decompensate a place to a lower level of care Discharge Planning: To be determined
[2018-01-19] MEDS: Insulin NovoLOG Aspart Correctional Sugar Inj SQ SCH ×5 (03:23→20:24)
[2018-01-19] MEDS: Acetaminophen 325 MG Tablet PO PRN (05:01)
[2018-01-19] MEDS: Levothyroxine 75 MCG Tablet PO SCH (05:02)
[2018-01-19 08:21] LABS: Calcium 10.6 mg/dL (8.5-10.1); Potassium 4.2 meq/L (3.5-5.1)
[2018-01-19] MEDS: Metoclopramide 10 MG Tablet PO SCH ×4 (09:14→22:00)
[2018-01-19] MEDS: Pantoprazole Sodium 20 MG DR Tablet PO SCH (09:14)
[2018-01-19] MEDS: Sodium Chloride 0.9% 2 ML Flush BID IV.FLUSH SCH ×2 (09:14→20:09)
[2018-01-19] MEDS: Sodium Chloride 1 GM Tablet PO SCH (09:15)
[2018-01-19] MEDS: Rivaroxaban 10 MG Tablet PO SCH (09:15)
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
--- NOTE | 2018-01-19 15:14 | P.PNPSY ---
Subjective Chief Complaint: Bipolar I Disorder - current Manic Episode Remarks: Patient seen in day room with nurse Deni and medical student Vicente, chart reviewed, patient continues quite manic with rapid pressured speech she is allowed intrusive grandiose focusing somewhat on religiosity and on sexuality. She states she is willing to take medication but she shows some superficial insight into her diagnosis and her behaviors. We did discuss various options she is had problems in the past with lithium and with Depakote. We will start her on Zyprexa 10 mg p.o. twice daily at this time consider addition of Tegretol in a few days if she tolerates the Zyprexa. Review of Systems All other systems reviewed negative except as stated in HPI Mental Status Examination Appearance: Appropriate (found in TV room, dressed in white dress, hospital pajama top/jacket, blanket, hair well groomed, interviewed in conference room for privacy as she was recieving a new roomate at time of interview), Disheveled Consciousness: Alert, Highly distractible Orientation: Person, Place, Situation Motor Activity: Normal gait Speech: Pressured, Rapid Language: Perseveration Fund of Knowledge: Adequate Attention and Concentration: Easily distracted Memory: Impaired (cannot recall who the previous president was and states "[place] or Esteban", did not recall 12/16 events until assisted), Immediate ( intact), Recent (intact) Mood: Manic ("I'm in a full blown Manic Episode") Affect: Other (Increased range and intensity) Thought Process & Associations: Loose associations (No matter what question is asked, she provides a brief answer followed by names, locations, and dates as if she is trying to recall info based on random associations but ultimately forgets the question has to be redirected), Circumstantial (continues to fixate and [place] back around to dates and names regardless of question asked), Disorganized, Tangential Thought Content: Bizarre thinking, Ideas of reference (states that the TV talks to everyone who can hear it except for when it is on the gospel channel), Hallucinations, Racing thoughts, Derealization (states that "Luzmaria has his hand in this place, that's why its so cold"), Preoccupations Hallucination Type: Auditory ("God speaks to me" according to prior note, but currently denies hearing any a/v/t hallucinations at this time) Delusion Type: Bizarre (Jain, Grandiose, and Sexual), Paranoid Suicidal Ideation: No Suicidal Plan: No Suicidal Intention: No Homicidal Ideation: No Homicidal Plan: No Homicidal Intention: No Insight: Fair (Recognizes that she is currently having a Manic Episode and wants medical treatment for her current state) Judgment: Poor Assessment and Plan - Assessment (1) Bipolar affective, manic, severe w/ psych Code(s): F31.2 - Bipolar disorder, current episode manic severe with psychotic features Status: Acute (2) Cannabis abuse Code(s): F12.10 - Cannabis abuse, uncomplicated Status: Acute - Plan Plan: Patient continues quite manic bizarre grandiose and paranoid. She is verbalizing a willingness to be on medication we will start her on Zyprexa 10 mg twice daily she tolerates that over few days we will consider adding Tegretol to the regimen Justification for Continued Inpatient Stay: At this point patient would decompensate a place to a lower level of care Discharge Planning: To be determined
[2018-01-19] MEDS ORDERED: Aluminum/Magnesium/Simethacone Susp 30 ML UDC PO ONE (18:39)
--- NOTE | 2018-01-19 18:48 | P.PNIM ---
Subjective Interval history: Follow-up visit hypotonic hyponatremia, DM. Patient patient walking around in the hallway, seems like hyperactive, and hyperverbal. Patient seen and examined seen and examined, complains of abdominal pain, denies any nausea or vomiting, stated had a bowel movement little today, denies any diarrhea or constipation. Patient denies any pain, chest pain or shortness of breath, denies any fever or chills. Physical Exam Vital signs: Vital Signs 01/19/18 05:34 01/19/18 18:11 Temperature 97.8 F 98.0 F Pulse Rate 96 H 79 Respiratory Rate 18 19 Blood Pressure 133/87 147/86 H Pulse Oximetry 97 98 Intake & Output 01/18/18 01/19/18 01/19/18 18:59 06:59 18:59 Intake Total 2400 / 2400 9960 / 9960 1600 / 1600 Balance 2400 / 2400 9960 / 9960 1600 / 1600 Intake: Oral 2400 / 2400 9960 / 9960 1600 / 1600 Other: # Voids 5 3 3 Date of Last Bowel Movement 01/17/18 Narrative: GENERAL: Well-developed, well-nourished, hyperactive, female in no apparent distress SKIN: Warm and dry. HEAD: Atraumatic. Normocephalic. EYES: Pupils equal and round. No scleral icterus. No injection or drainage. ENT: No nasal bleeding or discharge. Mucous membranes pink and moist. NECK: Trachea midline. No JVD. CARDIOVASCULAR: Regular rate and rhythm. RESPIRATORY: No accessory muscle use. Clear to auscultation. Breath sounds equal bilaterally. GASTROINTESTINAL: Abdomen soft, slight tenderness on palpation, nondistended. Hepatic and splenic margins not palpable. MUSCULOSKELETAL: Extremities without clubbing, cyanosis, or edema. No obvious deformities. NEUROLOGICAL: Awake and alert. No obvious cranial nerve deficits. Motor grossly within normal limits. Five out of 5 muscle strength in the arms and legs. Normal speech. PSYCHIATRIC: Hyperactive mood and affect; insight and judgment unreliable Results - Labs CBC & Chem 7: 01/17/18 06:48 01/19/18 07:43 Laboratory Results - last 24 hr 01/18/18 01/19/18 01/19/18 19:51 03:21 07:43 Sodium 137 Potassium 4.2 Chloride 104 Carbon Dioxide 22.0 Anion Gap 11 BUN 6 L Creatinine 0.91 Estimated GFR 65 L POC Glucose 103 102 Random Glucose 96 Calcium 10.6 H Assessment and Plan - Assessment (1) Abdominal pain Code(s): R10.9 - Unspecified abdominal pain (2) Bipolar affective, manic, severe w/ psych Code(s): F31.2 - Bipolar disorder, current episode manic severe with psychotic features Status: Acute (3) Diabetes type 2, controlled Code(s): E11.9 - Type 2 diabetes mellitus without complications Status: Acute (4) Hypothyroidism Code(s): E03.9 - Hypothyroidism, unspecified Status: Acute - Plan 52-year-old white female admitted for acute hyponatremia and acute [place]. Hypotonic hyponatremia -improving 118 upon admission, received NS bolus in the ER. sodium 131 -->127 --> 137 -TSH wnl. Etiology is not clear although the patient says she used to take " salt supplements." -Random urine sodium wn, urine osmolality low. F/u lithium level. Possible medication induced SIADH vs GI losses -Echo 60-65% -s/p IV fluids -continue Sodium tabs daily. Monitor sodium. Abdominal pain, generalized No nausea/vomiting/diarrhea -History of chronic constipation and ischemic colitis? for which she was on Xarelto. -Restart Xarelto for now and monitor for further GI symptoms, -Lactinex daily,add senna, continue prn stool softeners -continue PPI -KUB to r/o ileus Neck pain Back pain -No complaints of neck pain or back pain today -Possibly chronic. Alternate ibuprofen, Tylenol. Right lower extremity DVT ? -States she is taking Xarelto secondary to right lower extremity DVT versus ischemic colitis. Diabetes T2, controlled Monitor sugars, Accu-Chek before meals and at bedtime with insulin sliding scale -Metformin 500mg BID, lower dose - home dose 1,000mg -HgbA1c 5.7 -Follow up with PCP in 3 months, may cont to lower dose History of/hyperlipidemia/hypothyroidism - continue home medications, atorvastatin, Synthroid -Check TSH Acute shelley extensive psych hx of schizophrenia and bipolar and long antipsychotic allergy list - lithium level 0.1 mL, UDS negative -Management with psychiatric team DVT prop Xarelto Code Status: full code Discussed Condition With: patient and nurse
--- NOTE | 2018-01-19 20:02 | XR ---
EXAM DATE: 01/19/2018 12:00 AM EDT AGE/SEX: 52 years / Female INDICATIONS: Abdomen pain CLINICAL DATA: This is the patient's initial encounter. Patient reports that signs and symptoms have been present for 1 day and indicates a pain score of 2/10. MEDICAL/SURGICAL HISTORY: None. None. COMPARISON: No prior exams available for comparison. FINDINGS: There is mild constipation. No evidence for obstruction or free air. No acute bony abnormalities. No abnormal calcifications. CONCLUSION: Mild constipation. No acute findings. Electronically signed by: Keven Orr MD 01/19/2018 8:00 PM EDT
[2018-01-19] MEDS: OLANZapine 10 MG Tablet PO SCH (20:35)
[2018-01-20] MEDS: Insulin NovoLOG Aspart Correctional Sugar Inj SQ SCH ×5 (03:35→21:05)
[2018-01-20] MEDS: Levothyroxine 75 MCG Tablet PO SCH (05:54)
[2018-01-20 07:42] LABS: Eos % (Auto) 0.4 % (0.0-4.0); Hematocrit 35.5 % (35.0-46.0); Lymph # (Auto) 1.9 th/mm3 (1.0-4.8); Lymph % (Auto) 46.5 % (9.0-44.0); Mean Corpuscular HGB Conc 33.7 % (32.0-36.0); Mean Corpuscular Hemoglobin 28.3 pg (27.0-34.0); Mean Corpuscular Volume 83.8 fL (80.0-100.0); Mean Platelet Volume 7.7 fL (7.0-11.0); Mono # (Auto) 0.5 th/mm3 (0.0-0.9); Mono % (Auto) 12.8 % (0.0-8.0); Neut # (Auto) 1.6 th/mm3 (1.8-7.7); Neut % (Auto) 39.3 % (16.0-70.0); Platelet Count 289 th/mm3 (150-450); Red Blood Count 4.23 mil/mm3 (4.00-5.30); Red Cell Distribution Width 13.9 % (11.6-17.2); White Blood Count 4.1 th/mm3 (4.0-11.0)
[2018-01-20 08:18] LABS: Calcium 10.5 mg/dL (8.5-10.1); Carbon Dioxide 24.9 meq/L (21.0-32.0); Potassium 3.8 meq/L (3.5-5.1)
[2018-01-20] MEDS: Senna/Docusate Sodium 8.6/50 MG Tablet PO SCH (08:18)
[2018-01-20] MEDS: Sodium Chloride 0.9% 2 ML Flush BID IV.FLUSH SCH ×2 (08:18→21:06)
[2018-01-20] MEDS: Metoclopramide 10 MG Tablet PO SCH ×4 (08:19→21:07)
[2018-01-20] MEDS: Pantoprazole Sodium 20 MG DR Tablet PO SCH (08:19)
[2018-01-20] MEDS: Acetaminophen 325 MG Tablet PO PRN ×2 (08:20→15:31)
[2018-01-20] MEDS: Rivaroxaban 10 MG Tablet PO SCH (08:20)
[2018-01-20] MEDS: OLANZapine 10 MG Tablet PO SCH ×2 (08:20→21:06)
[2018-01-20] MEDS: Sodium Chloride 1 GM Tablet PO SCH (08:20)
--- NOTE | 2018-01-20 15:42 | P.PNPSY ---
Subjective Chief Complaint: Bipolar I Disorder - current Manic Episode Remarks: Patient seen in day room with medical student Vicente, chart reviewed, patient remains quite manic with rapid pressured speech markedly intense hypersexual and grandiose. She says she likes taking the medication. She has been compliant with her Zyprexa which is only had 2 doses so far. For now continue treatment no change Review of Systems All other systems reviewed negative except as stated in HPI Mental Status Examination Appearance: Appropriate (found in TV room, dressed in white dress, hospital [facility] top/jacket, blanket, hair well groomed, interviewed in conference room for privacy as she was recieving a new roomate at time of interview), Disheveled Consciousness: Alert, Highly distractible Orientation: Person, Place, Situation Motor Activity: Normal gait Speech: Pressured, Rapid Language: Perseveration Fund of Knowledge: Adequate Attention and Concentration: Easily distracted Memory: Impaired (cannot recall who the previous president was and states "[place] or Esteban", did not recall 12/16 events until assisted), Immediate ( intact), Recent (intact) Mood: Manic ("I'm in a full blown Manic Episode") Affect: Other (Increased range and intensity) Thought Process & Associations: Loose associations (No matter what question is asked, she provides a brief answer followed by names, locations, and dates as if she is trying to recall info based on random associations but ultimately forgets the question has to be redirected), Circumstantial (continues to fixate and crow back around to dates and names regardless of question asked), Disorganized, Tangential Thought Content: Bizarre thinking, Ideas of reference (states that the TV talks to everyone who can hear it except for when it is on the [employer] channel), Hallucinations, Racing thoughts, Derealization (states that "Luzmaria has his hand in this place, that's why its so cold"), Preoccupations Hallucination Type: Auditory ("God speaks to me" according to prior note, but currently denies hearing any a/v/t hallucinations at this time) Delusion Type: Bizarre (Mormon, Grandiose, and Sexual), Paranoid Suicidal Ideation: No Suicidal Plan: No Suicidal Intention: No Homicidal Ideation: No Homicidal Plan: No Homicidal Intention: No Insight: Fair (Recognizes that she is currently having a Manic Episode and wants medical treatment for her current state) Judgment: Poor Assessment and Plan - Assessment (1) Bipolar affective, manic, severe w/ psych Code(s): F31.2 - Bipolar disorder, current episode manic severe with psychotic features Status: Acute (2) Cannabis abuse Code(s): F12.10 - Cannabis abuse, uncomplicated Status: Acute - Plan Plan: Patient remains manic grandiose and paranoid. Though compliant medication for now continue treatment Justification for Continued Inpatient Stay: At this time patient would decompensate a place to a lower level of care Discharge Planning: To be determined
--- NOTE | 2018-01-20 19:11 | P.PNIM ---
Subjective Interval history: Follow-up visit hypotonic hyponatremia, DM, and abdominal pain. Patient seen and examined sitting in the chair, feeling happy denies any complaint. Patient stated no more abdominal pain, no nausea no vomiting. Patient denies any headache or dizziness, denies any chest pain or shortness of breath, denies any fever or chills. Patient looks happy stated everything is good. Nurse reported no complaints. Physical Exam Vital signs: Vital Signs 01/20/18 06:29 01/20/18 18:40 Temperature 98.2 F 98.1 F Pulse Rate 100 H 101 H Respiratory Rate 18 18 Blood Pressure 138/96 H 131/80 Pulse Oximetry 96 96 Intake & Output 01/20/18 01/20/18 01/21/18 06:59 18:59 06:59 Intake Total 120 / 120 1440 / 1440 Output Total 0 / 0 Balance 120 / 120 1440 / 1440 Weight 78.5 kg Intake: Oral 120 / 120 1440 / 1440 Output: Urine 0 / 0 Other: # Voids 1 3 Date of Last Bowel Movement 01/17/18 01/20/18 Narrative: GENERAL: Well-developed, well-nourished, hyperactive, female in no apparent distress SKIN: Warm and dry. HEAD: Atraumatic. Normocephalic. EYES: Pupils equal and round. No scleral icterus. No injection or drainage. ENT: No nasal bleeding or discharge. Mucous membranes pink and moist. NECK: Trachea midline. No JVD. CARDIOVASCULAR: Regular rate and rhythm. RESPIRATORY: No accessory muscle use. Clear to auscultation. Breath sounds equal bilaterally. GASTROINTESTINAL: Abdomen soft, nontender, nondistended. Hepatic and splenic margins not palpable. MUSCULOSKELETAL: Extremities without clubbing, cyanosis, or edema. No obvious deformities. NEUROLOGICAL: Awake and alert. No obvious cranial nerve deficits. Motor grossly within normal limits. Five out of 5 muscle strength in the arms and legs. Normal speech. PSYCHIATRIC: Hyperactive mood and affect; insight and judgment unreliable Results - Labs CBC & Chem 7: 01/20/18 06:18 01/20/18 06:18 Laboratory Results - last 24 hr 01/19/18 01/20/18 01/20/18 20:20 06:18 06:18 WBC 4.1 RBC 4.23 Hgb 12.0 Hct 35.5 MCV 83.8 MCH 28.3 MCHC 33.7 RDW 13.9 Plt Count 289 MPV 7.7 Neut % (Auto) 39.3 Lymph % (Auto) 46.5 H Barbour % (Auto) 12.8 H Eos % (Auto) 0.4 Baso % (Auto) 1.0 Neut # (Auto) 1.6 L Lymph # (Auto) 1.9 Barbour # (Auto) 0.5 Eos # (Auto) 0.0 Baso # (Auto) 0.0 WBC Differential . Differential Comment Auto diff final Sodium 141 Potassium 3.8 Chloride 105 Carbon Dioxide 24.9 Anion Gap 11 BUN 8 Creatinine 0.86 Estimated GFR 69 L POC Glucose 100 Random Glucose 80 Calcium 10.5 H Beta HCG, Quant 4 01/20/18 01/20/18 08:05 16:38 WBC RBC Hgb Hct MCV MCH MCHC RDW Plt Count MPV Neut % (Auto) Lymph % (Auto) Barbour % (Auto) Eos % (Auto) Baso % (Auto) Neut # (Auto) Lymph # (Auto) Barbour # (Auto) Eos # (Auto) Baso # (Auto) WBC Differential Differential Comment Sodium Potassium Chloride Carbon Dioxide Anion Gap BUN Creatinine Estimated GFR POC Glucose 101 92 Random Glucose Calcium Beta HCG, Quant - Imaging Impressions Abdomen X-Ray 01/19/18 00:00 CONCLUSION: Mild constipation. No acute findings. Assessment and Plan - Assessment (1) Abdominal pain Code(s): R10.9 - Unspecified abdominal pain (2) Bipolar affective, manic, severe w/ psych Code(s): F31.2 - Bipolar disorder, current episode manic severe with psychotic features Status: Acute (3) Diabetes type 2, controlled Code(s): E11.9 - Type 2 diabetes mellitus without complications Status: Acute (4) Hypothyroidism Code(s): E03.9 - Hypothyroidism, unspecified Status: Acute - Plan 52-year-old white female admitted for acute hyponatremia and acute shelley. Hypotonic hyponatremia -improving 118 upon admission, received NS bolus in the ER. sodium 131 -->127 --> 137 -TSH wnl. Etiology is not clear although the patient says she used to take " salt supplements." -Random urine sodium wn, urine osmolality low. F/u lithium level. Possible medication induced SIADH vs GI losses -Echo 60-65% -s/p IV fluids -continue Sodium tabs daily. Monitor sodium. Abdominal pain, generalized No nausea/vomiting/diarrhea -History of chronic constipation and ischemic colitis? for which she was on Xarelto. -Restart Xarelto for now and monitor for further GI symptoms, -Lactinex daily,add senna, continue prn stool softeners -continue PPI -KUB showed slight constipation -Added stool softener, and as needed laxative Neck pain Back pain -No complaints of neck pain or back pain today -Possibly chronic. Alternate ibuprofen, Tylenol. Right lower extremity DVT ? -States she is taking Xarelto secondary to right lower extremity DVT versus ischemic colitis. Diabetes T2, controlled Monitor sugars, Accu-Chek before meals and at bedtime with insulin sliding scale -Metformin 500mg BID, lower dose - home dose 1,000mg -HgbA1c 5.7 -Follow up with PCP in 3 months, may cont to lower dose -Blood glucose fair controlled History of/hyperlipidemia/hypothyroidism - continue home medications, atorvastatin, Synthroid -Check TSH Acute shelley extensive psych hx of schizophrenia and bipolar and long antipsychotic allergy list - lithium level 0.1 mL, UDS negative -Management with psychiatric team DVT prop Xarelto Code Status: Full code Discussed Condition With: Patient and nurse
[2018-01-21] MEDS: Insulin NovoLOG Aspart Correctional Sugar Inj SQ SCH ×5 (03:00→21:38)
[2018-01-21] MEDS: Levothyroxine 75 MCG Tablet PO SCH (06:00)
[2018-01-21] MEDS: Metoclopramide 10 MG Tablet PO SCH ×4 (08:14→21:39)
[2018-01-21] MEDS: Senna/Docusate Sodium 8.6/50 MG Tablet PO SCH (08:14)
[2018-01-21] MEDS: OLANZapine 10 MG Tablet PO SCH (08:14)
[2018-01-21] MEDS: Rivaroxaban 10 MG Tablet PO SCH (08:14)
[2018-01-21] MEDS: Pantoprazole Sodium 20 MG DR Tablet PO SCH (08:14)
[2018-01-21] MEDS: Sodium Chloride 1 GM Tablet PO SCH (08:14)
[2018-01-21] MEDS: Sodium Chloride 0.9% 2 ML Flush BID IV.FLUSH SCH ×2 (08:16→21:39)
--- NOTE | 2018-01-21 10:42 | P.PNIM ---
Subjective Interval history: Follow-up visit hypotonic hyponatremia, DM, and abdominal pain. Patient walking in the hallway with no apparent distress, still acting hyper and verbal. Patient seen and examined denies any abdominal pain, nausea or vomiting , denies any diarrhea or constipation. Patient stated she is feeling better. Patient states that she is eating well and does want a pitcher of water to drink.. Patient denies any headache or dizziness, denies any chest pain or shortness of breath, denies any fever or chills. Nurse reported no acute concern for the patient, patient doing Physical Exam Vital signs: Vital Signs 01/20/18 18:40 01/21/18 04:50 Temperature 98.1 F 98.2 F Pulse Rate 101 H 98 H Respiratory Rate 18 Blood Pressure 131/80 160/65 H Pulse Oximetry 96 96 Intake & Output 01/20/18 01/21/18 01/21/18 18:59 06:59 18:59 Intake Total 1440 / 1440 480 / 480 Balance 1440 / 1440 480 / 480 Intake: Oral 1440 / 1440 480 / 480 Other: # Voids 3 2 Date of Last Bowel Movement 01/20/18 Narrative: GENERAL: Well-developed, well-nourished, hyperactive, female in no apparent distress SKIN: Warm and dry. HEAD: Atraumatic. Normocephalic. EYES: Pupils equal and round. No scleral icterus. No injection or drainage. ENT: No nasal bleeding or discharge. Mucous membranes pink and moist. NECK: Trachea midline. No JVD. CARDIOVASCULAR: Regular rate and rhythm. RESPIRATORY: No accessory muscle use. Clear to auscultation. Breath sounds equal bilaterally. GASTROINTESTINAL: Abdomen soft, nontender, nondistended. Hepatic and splenic margins not palpable. MUSCULOSKELETAL: Extremities without clubbing, cyanosis, or edema. No obvious deformities. NEUROLOGICAL: Awake and alert. No obvious cranial nerve deficits. Motor grossly within normal limits. Five out of 5 muscle strength in the arms and legs. Normal speech. PSYCHIATRIC: Hyperactive mood and affect; insight and judgment unreliable Results - Labs CBC & Chem 7: 01/20/18 06:18 01/20/18 06:18 Laboratory Results - last 24 hr 01/20/18 01/20/18 01/21/18 16:38 19:21 05:59 POC Glucose 92 102 111 H TSH 01/21/18 07:34 POC Glucose TSH 0.773 Assessment and Plan - Assessment (1) Abdominal pain Code(s): R10.9 - Unspecified abdominal pain (2) Bipolar affective, manic, severe w/ psych Code(s): F31.2 - Bipolar disorder, current episode manic severe with psychotic features Status: Acute (3) Diabetes type 2, controlled Code(s): E11.9 - Type 2 diabetes mellitus without complications Status: Acute (4) Hypothyroidism Code(s): E03.9 - Hypothyroidism, unspecified Status: Acute - Plan 52-year-old white female admitted for acute hyponatremia and acute shelley. Hypotonic hyponatremia -improving 118 upon admission, received NS bolus in the ER. sodium 131 -->127 --> currently 141 -TSH wnl. Etiology is not clear although the patient says she used to take " salt supplements." -Random urine sodium wn, urine osmolality low. F/u lithium level. Possible medication induced SIADH vs GI losses -Echo 60-65% -s/p IV fluids -continue Sodium tabs daily. Monitor sodium. Abdominal pain, generalized No nausea/vomiting/diarrhea -History of chronic constipation and ischemic colitis? for which she was on Xarelto. -Restart Xarelto for now and monitor for further GI symptoms, -Lactinex daily,add senna, continue prn stool softeners -continue PPI -KUB showed slight constipation -Added stool softener, and as needed laxative Neck pain Back pain -Possibly chronic. Alternate ibuprofen, Tylenol. -Stable no complaints of any pain Right lower extremity DVT ? -States she is taking Xarelto secondary to right lower extremity DVT versus ischemic colitis. Diabetes T2, controlled Monitor sugars, Accu-Chek before meals and at bedtime with insulin sliding scale, may discontinue in 5 days if no coverage needed. -Decrease Metformin 500mg BID, lower dose - home dose 1,000mg -HgbA1c 5.7 -Follow up with PCP in 3 months, may cont to lower dose -Blood glucose fair controlled History of/hyperlipidemia/hypothyroidism - continue home medications, atorvastatin, Synthroid - TSH 0.773 -Lipid panel stable Acute shelley extensive psych hx of schizophrenia and bipolar and long antipsychotic allergy list - lithium level 0.1 mL, UDS negative -Management with psychiatric team DVT prop Xarelto Patient medically cleared to transfer to regular psych unit. Thank you for your consultation we will be available as necessary. Code Status: Full code Discussed Condition With: Patient and nurse
[2018-01-21] MEDS: Acetaminophen 325 MG Tablet PO PRN (13:43)
--- NOTE | 2018-01-21 14:17 | P.PNPSY ---
Subjective Chief Complaint: Bipolar I Disorder - current Manic Episode Remarks: Patient seen with nurse Jayda on 2599, chart reviewed, patient compliant medication. Patient remains manic and tense with slight increase rate of her speech. The pressure also remains. Though she denies suicidality homicidality voices or visions. She still has fairly loose boundaries with other patients on the unit. However at this time patient is willing to stay voluntarily feels that she needs to slow down further. Thus I will lift Kumar act allow patient to sign voluntary will increase Zyprexa to 15 mg twice daily Review of Systems All other systems reviewed negative except as stated in HPI Mental Status Examination Appearance: Appropriate (found in TV room, dressed in white dress, hospital pajama top/jacket, blanket, hair well groomed, interviewed in conference room for privacy as she was recieving a new roomate at time of interview), Disheveled Consciousness: Alert, Highly distractible Orientation: Person, Place, Situation Motor Activity: Normal gait Speech: Pressured, Rapid Language: Perseveration Fund of Knowledge: Adequate Attention and Concentration: Easily distracted Memory: Impaired (cannot recall who the previous president was and states "Leandro or Esteban", did not recall 12/16 events until assisted), Immediate ( intact), Recent (intact) Mood: Manic ("I'm in a full blown Manic Episode") Affect: Other (Increased range and intensity) Thought Process & Associations: Loose associations (No matter what question is asked, she provides a brief answer followed by names, locations, and dates as if she is trying to recall info based on random associations but ultimately forgets the question has to be redirected), Circumstantial (continues to fixate and little traverse back around to dates and names regardless of question asked), Disorganized, Tangential Thought Content: Bizarre thinking, Ideas of reference (states that the TV talks to everyone who can hear it except for when it is on the [employer] channel), Hallucinations, Racing thoughts, Derealization (states that "Luzmaria has his hand in this place, that's why its so cold"), Preoccupations Hallucination Type: Auditory ("God speaks to me" according to prior note, but currently denies hearing any a/v/t hallucinations at this time) Delusion Type: Bizarre (Adventist, Grandiose, and Sexual), Paranoid Suicidal Ideation: No Suicidal Plan: No Suicidal Intention: No Homicidal Ideation: No Homicidal Plan: No Homicidal Intention: No Insight: Fair (Recognizes that she is currently having a Manic Episode and wants medical treatment for her current state) Judgment: Poor Assessment and Plan - Assessment (1) Bipolar affective, manic, severe w/ psych Code(s): F31.2 - Bipolar disorder, current episode manic severe with psychotic features Status: Acute (2) Cannabis abuse Code(s): F12.10 - Cannabis abuse, uncomplicated Status: Acute - Plan Plan: Patient remains manic with rapid pressured speech some delusions and also continues somewhat "flirt" patient counseled to keep appropriate boundaries with other patients and staff Justification for Continued Inpatient Stay: At this time patient would decompensate a place to a lower level of care Discharge Planning: To be determined
[2018-01-21] MEDS: OLANZapine 15 MG Tablet PO SCH (21:38)
[2018-01-22] MEDS: Insulin NovoLOG Aspart Correctional Sugar Inj SQ SCH ×5 (03:26→22:40)
[2018-01-22] MEDS: Levothyroxine 75 MCG Tablet PO SCH (06:29)
[2018-01-22] MEDS: Rivaroxaban 10 MG Tablet PO SCH (08:55)
[2018-01-22] MEDS: Pantoprazole Sodium 20 MG DR Tablet PO SCH (08:56)
[2018-01-22] MEDS: Sodium Chloride 1 GM Tablet PO SCH (08:57)
[2018-01-22] MEDS: Metoclopramide 10 MG Tablet PO SCH ×4 (08:59→21:39)
[2018-01-22] MEDS: OLANZapine 15 MG Tablet PO SCH ×2 (08:59→21:39)
[2018-01-22] MEDS: Senna/Docusate Sodium 8.6/50 MG Tablet PO SCH (08:59)
[2018-01-22] MEDS: Sodium Chloride 0.9% 2 ML Flush BID IV.FLUSH SCH ×2 (09:01→22:14)
--- NOTE | 2018-01-22 13:13 | P.PNPSY ---
Subjective Chief Complaint: Bipolar I Disorder - current Manic Episode Remarks: Patient seen and gonzalez with medical student Vicente, chart reviewed, patient compliant medication. Patient continues with rapid pressured speech grandiosity and impulsivity poor boundaries and somewhat hyperactive. She cannot live acknowledges the pain and this is bringing her states she has no control over it. We will start Tegretol 100 mg twice daily 2 doses yet today check a Tegretol level over on Thursday 01/25 Review of Systems All other systems reviewed negative except as stated in HPI Mental Status Examination Appearance: Appropriate (found in TV room, dressed in white dress, hospital pajama top/jacket, blanket, hair well groomed, interviewed in conference room for privacy as she was recieving a new roomate at time of interview), Disheveled Consciousness: Alert, Highly distractible Orientation: Person, Place, Situation Motor Activity: Normal gait Speech: Pressured, Rapid Language: Perseveration Fund of Knowledge: Adequate Attention and Concentration: Easily distracted Memory: Impaired (cannot recall who the previous president was and states "B[place]le or Esteban", did not recall 12/16 events until assisted), Immediate ( intact), Recent (intact) Mood: Manic ("I'm in a full blown Manic Episode") Affect: Other (Increased range and intensity) Thought Process & Associations: Loose associations (No matter what question is asked, she provides a brief answer followed by names, locations, and dates as if she is trying to recall info based on random associations but ultimately forgets the question has to be redirected), Circumstantial (continues to fixate and [place] back around to dates and names regardless of question asked), Disorganized, Tangential Thought Content: Bizarre thinking, Ideas of reference (states that the TV talks to everyone who can hear it except for when it is on the [employer] channel), Hallucinations, Racing thoughts, Derealization (states that "Luzmaria has his hand in this place, that's why its so cold"), Preoccupations Hallucination Type: Auditory ("God speaks to me" according to prior note, but currently denies hearing any a/v/t hallucinations at this time) Delusion Type: Bizarre (Mandaen, Grandiose, and Sexual), Paranoid Suicidal Ideation: No Suicidal Plan: No Suicidal Intention: No Homicidal Ideation: No Homicidal Plan: No Homicidal Intention: No Insight: Fair (Recognizes that she is currently having a Manic Episode and wants medical treatment for her current state) Judgment: Poor Assessment and Plan - Assessment (1) Bipolar affective, manic, severe w/ psych Code(s): F31.2 - Bipolar disorder, current episode manic severe with psychotic features Status: Acute (2) Cannabis abuse Code(s): F12.10 - Cannabis abuse, uncomplicated Status: Acute - Plan Plan: Patient remains quite manic and delusional, compliant medication, please see medication adjustments and additions above Justification for Continued Inpatient Stay: At this time patient would decompensate a place to a lower level of care Discharge Planning: To be determined
[2018-01-22] MEDS: carBAMazepine 100 MG Chewable Tablets PO SCH ×2 (14:15→22:12)
[2018-01-22] MEDS: Melatonin 5 MG Tablet PO PRN (22:12)
[2018-01-23] MEDS: Insulin NovoLOG Aspart Correctional Sugar Inj SQ SCH ×5 (03:39→21:00)
[2018-01-23] MEDS: Levothyroxine 75 MCG Tablet PO SCH (06:18)
--- NOTE | 2018-01-23 10:01 | P.PNPSY ---
Subjective Chief Complaint: Bipolar I Disorder - current Manic Episode Remarks: Ms. Evans is found in the day room on 2600 unit, dressed in white dress, seen with fellow medical student Darryn Rocha. She remains manic, pressured speech, elevated mood, euthymic, and continues to exhibit poor sense of boundaries asking if she can "give me a hug". She describes her mood as "great" and states that she is a "genius". She is tolerating meds well stating "I don't know what you're giving me, but keep it coming!" and denies any , Neck Pain, EPS symptoms, SI/HI, or auditory/visual/tactile hallucinations at time of interview. Nurses report that she slept 4hrs last night and urinated in floor in her room. She is scheduled for a Teg Level draw on 01/25/18. Instructed pt to practice breathing methods to calm down and encouraged boundary control. Continue current treatment plan at this time. Will report to attending Dr. Guardado. Review of Systems All other systems reviewed negative except as stated in HPI Neurologic: Denies abnormal hearing, Denies abnormal movements, Denies abnormal speech, Denies abnormal walking, Denies behavioral changes, Denies burning sensations, Denies confusion, Denies dizziness, Denies fainting, Denies frequent falls, Denies headache(s), Denies lack of coordination, Denies localized weakness, Denies loss of vision, Denies memory loss, Denies numbness, Denies other visual disturbances, Denies radiating pain, Denies restless legs, Denies convulsions, Denies seizure-like activity, Denies sensory deficit, Denies tingling, Denies tingling/numbness/burning sensations, Denies tremor(s), Denies unsteadiness, Denies weakness, Denies other Psychiatric: Reports anxiety, Reports difficulty concentrating Mental Status Examination Appearance: Appropriate (2600 unit Day Room, Dressed in white gown), Disheveled Consciousness: Alert, Highly distractible Orientation: Person, Place, Situation Motor Activity: Normal gait Speech: Pressured, Rapid Language: Perseveration Fund of Knowledge: Adequate Attention and Concentration: Easily distracted Memory: Impaired (cannot recall who the previous president was and states "Bryan or Esteban", did not recall / events until assisted), Immediate ( intact), Recent (intact) Mood: Manic ("Good, I feel great, Praise the lord!") Affect: Euthymic, Other (Increased range and intensity) Thought Process & Associations: Loose associations, Circumstantial, Disorganized , Tangential Thought Content: Bizarre thinking, Ideas of reference (states that the TV talks to everyone who can hear it except for when it is on the [employer] channel), Hallucinations, Racing thoughts, Derealization, Preoccupations Hallucination Type: Auditory ("God speaks to me" according to prior note, but currently denies hearing any a/v/t hallucinations at this time) Delusion Type: Bizarre (Anglican, Grandiose, and Sexual), Paranoid Suicidal Ideation: No Suicidal Plan: No Suicidal Intention: No Homicidal Ideation: No Homicidal Plan: No Homicidal Intention: No Insight: Fair (Recognizes that she is currently having a Manic Episode and wants medical treatment for her current state) Judgment: Poor Assessment and Plan - Assessment (1) Bipolar affective, manic, severe w/ psych Code(s): F31.2 - Bipolar disorder, current episode manic severe with psychotic features Status: Acute - Plan Plan: Patient remains quite manic and delusional, compliant medication, please see medication adjustments and additions above. She is scheduled for a Teg Level draw on 01/24/18. Instructed pt to practice breathing methods to calm down and encouraged boundary control. Continue current treatment plan at this time. Will report to attending Dr. Guardado.
--- NOTE | 2018-01-23 10:46 | P.PNPSY ---
Subjective Chief Complaint: Bipolar I Disorder - current Manic Episode Remarks: Patient seen and gonzalez with medical student Tonia, chart reviewed, patient compliant medication. Staff states patient has had episodes of urinary incontinence through the night though she has no significant complaints. UA done on 01/14 was negative. We will recheck UA today. Patient also complains of little sleep we will add trazodone 50 mg at at bedtime. Patient continues intense manic with rapid pressured speech with very poor boundaries. And inappropriate sexually oriented comments. She appears to listen to redirections but her ability to process and retain is minimal. For now continue treatment we will be getting a Tegretol blood level on 01/25 Review of Systems All other systems reviewed negative except as stated in HPI Mental Status Examination Appearance: Appropriate (2600 unit Day Room, Dressed in white gown), Disheveled Consciousness: Alert, Highly distractible Orientation: Person, Place, Situation Motor Activity: Normal gait Speech: Pressured, Rapid Language: Perseveration Fund of Knowledge: Adequate Attention and Concentration: Easily distracted Memory: Impaired (cannot recall who the previous president was and states "Leandro or Esteban", did not recall 12/16 events until assisted), Immediate ( intact), Recent (intact) Mood: Manic ("Good, I feel great, Praise the lord!") Affect: Euthymic, Other (Increased range and intensity) Thought Process & Associations: Loose associations, Circumstantial, Disorganized , Tangential Thought Content: Bizarre thinking, Ideas of reference (states that the TV talks to everyone who can hear it except for when it is on the [employer] channel), Hallucinations, Racing thoughts, Derealization, Preoccupations Hallucination Type: Auditory ("God speaks to me" according to prior note, but currently denies hearing any a/v/t hallucinations at this time) Delusion Type: Bizarre (Rastafarian, Grandiose, and Sexual), Paranoid Suicidal Ideation: No Suicidal Plan: No Suicidal Intention: No Homicidal Ideation: No Homicidal Plan: No Homicidal Intention: No Insight: Fair (Recognizes that she is currently having a Manic Episode and wants medical treatment for her current state) Judgment: Poor Assessment and Plan - Assessment (1) Bipolar affective, manic, severe w/ psych Code(s): F31.2 - Bipolar disorder, current episode manic severe with psychotic features Status: Acute (2) Cannabis abuse Code(s): F12.10 - Cannabis abuse, uncomplicated Status: Acute - Plan Plan: Patient remains quite manic somewhat delusional and intrusive intense with poor boundaries. We will also check patient's UA today. Add trazodone 50 mg at at bedtime for insomnia Justification for Continued Inpatient Stay: At this time patient would decompensate a place to a lower level of care Discharge Planning: To be determined may need outpatient find another [facility] her [facility]
[2018-01-23] MEDS: Metoclopramide 10 MG Tablet PO SCH ×4 (11:41→21:11)
[2018-01-23] MEDS: Pantoprazole Sodium 20 MG DR Tablet PO SCH (11:42)
[2018-01-23] MEDS: Senna/Docusate Sodium 8.6/50 MG Tablet PO SCH (11:43)
[2018-01-23] MEDS: Rivaroxaban 10 MG Tablet PO SCH (11:43)
[2018-01-23] MEDS: OLANZapine 15 MG Tablet PO SCH ×2 (11:44→21:10)
[2018-01-23] MEDS: carBAMazepine 100 MG Chewable Tablets PO SCH ×2 (11:44→21:10)
[2018-01-23] MEDS: Sodium Chloride 1 GM Tablet PO SCH (11:44)
[2018-01-23] MEDS: Sodium Chloride 0.9% 2 ML Flush BID IV.FLUSH SCH ×2 (14:11→21:10)
[2018-01-23 16:01] LABS: Bilirubin,Urine Negative (Negative); Clarity,Urine Clear (Clear); Color,Urine Yellow (Yellw/Straw); Glucose,Urine (UA) Negative (Negative); Leukocyte Esterase,Urine Small (Negative); Nitrite,Urine Negative (Negative); Specific Gravity,Urine 1.004 (1.002-1.035)
[2018-01-23] MEDS: traZODone 50 MG Tablet PO SCH (21:10)
[2018-01-24] MEDS: Insulin NovoLOG Aspart Correctional Sugar Inj SQ SCH ×5 (03:46→21:07)
[2018-01-24] MEDS: Levothyroxine 75 MCG Tablet PO SCH (05:26)
[2018-01-24] MEDS: Metoclopramide 10 MG Tablet PO SCH ×4 (09:13→20:35)
[2018-01-24] MEDS: Pantoprazole Sodium 20 MG DR Tablet PO SCH (09:13)
[2018-01-24] MEDS: OLANZapine 15 MG Tablet PO SCH ×2 (09:13→20:36)
[2018-01-24] MEDS: Rivaroxaban 10 MG Tablet PO SCH (09:13)
[2018-01-24] MEDS: Sodium Chloride 1 GM Tablet PO SCH (09:14)
[2018-01-24] MEDS: carBAMazepine 100 MG Chewable Tablets PO SCH ×2 (09:14→20:35)
[2018-01-24] MEDS: Sodium Chloride 0.9% 2 ML Flush BID IV.FLUSH SCH ×2 (09:26→20:37)
[2018-01-24] MEDS: Senna/Docusate Sodium 8.6/50 MG Tablet PO SCH (09:26)
[2018-01-24] MEDS ORDERED: risperiDONE 0.5 MG ODT PO ONE (11:26)
--- NOTE | 2018-01-24 12:40 | P.PNPSY ---
Subjective Chief Complaint: Bipolar I Disorder - current Manic Episode Remarks: Pt seen and discussed with staff. Chart reviewed. Pt remains manic with highly intrusive and hypersexual behavior (making inappropriate comments, attempting to touch peers). Staff report that she has been disruptive on unit. Pt c/o of shelley and has not slept in 4 days. "I'm miserable" Thought process is loose and pt espouses numerous grandiose delusions. Risperidone Mtab 0.5mg PO X1 given for acute agitation. "I need this to help. It worked before". Pt was recently started on tegretol titration for shelley. NO medication side effects. No EPS. Mental Status Examination Appearance: Appropriate (2600 unit Day Room, Dressed in white gown), Disheveled Consciousness: Alert, Highly distractible Orientation: Person, Place, Situation Motor Activity: Normal gait Speech: Pressured, Rapid Language: Perseveration Fund of Knowledge: Adequate Attention and Concentration: Easily distracted Memory: Impaired (cannot recall who the previous president was and states "Leandro or Esteban", did not recall 12/16 events until assisted), Immediate ( intact), Recent (intact) Mood: Manic ("Good, I feel great, Praise the lord!") Affect: Labile Thought Process & Associations: Loose associations, Circumstantial, Disorganized , Tangential Thought Content: Bizarre thinking, Ideas of reference (states that the TV talks to everyone who can hear it except for when it is on the [employer] channel), Hallucinations, Racing thoughts, Preoccupations Hallucination Type: Auditory ("God speaks to me" according to prior note, but currently denies hearing any a/v/t hallucinations at this time) Delusion Type: Bizarre (Holiness, Grandiose, and Sexual), Paranoid Suicidal Ideation: No Suicidal Plan: No Suicidal Intention: No Homicidal Ideation: No Homicidal Plan: No Homicidal Intention: No Insight: Fair (Recognizes that she is currently having a Manic Episode and wants medical treatment for her current state) Judgment: Poor Assessment and Plan - Assessment (1) Bipolar affective, manic, severe w/ psych Code(s): F31.2 - Bipolar disorder, current episode manic severe with psychotic features Status: Acute (2) Cannabis abuse Code(s): F12.10 - Cannabis abuse, uncomplicated Status: Acute - Plan Plan: 1:1 sitter ordered due to inappropriate behaviors and agitation.Continue current medications Justification for Continued Inpatient Stay: impairments in social functioning and reality testing
[2018-01-24] MEDS: traZODone 50 MG Tablet PO SCH (20:34)
[2018-01-25] MEDS: Insulin NovoLOG Aspart Correctional Sugar Inj SQ SCH ×4 (04:26→18:00)
[2018-01-25] MEDS: Levothyroxine 75 MCG Tablet PO SCH (06:25)
[2018-01-25] MEDS: Senna/Docusate Sodium 8.6/50 MG Tablet PO SCH (09:08)
[2018-01-25] MEDS: Metoclopramide 10 MG Tablet PO SCH ×4 (09:10→21:05)
[2018-01-25] MEDS: OLANZapine 15 MG Tablet PO SCH ×2 (09:11→21:05)
[2018-01-25] MEDS: carBAMazepine 100 MG Chewable Tablets PO SCH ×2 (09:11→21:05)
[2018-01-25] MEDS: Rivaroxaban 10 MG Tablet PO SCH (09:12)
[2018-01-25] MEDS: Pantoprazole Sodium 20 MG DR Tablet PO SCH (09:12)
[2018-01-25] MEDS: Sodium Chloride 0.9% 2 ML Flush BID IV.FLUSH SCH ×2 (09:13→21:06)
[2018-01-25] MEDS: Sodium Chloride 1 GM Tablet PO SCH (09:13)
--- NOTE | 2018-01-25 12:57 | P.PNPSY ---
Subjective Chief Complaint: Bipolar I Disorder - current Manic Episode Remarks: Chart reviewed and discussed with nursing staff. Patient is sitting in the day room by the window away from other staff. She remains manic and hypersexual. She states that she slept from 2300 until 0400 am this morning. Patient remains one on one due to her intrusive behavior attempting to touch other patients and following the male patients. She is eating well and feels that she is gaining weight. Patient was started on Tegretol. Review of Systems All other systems reviewed negative except as stated in HPI Mental Status Examination Appearance: Appropriate (2600 unit Day Room, Dressed in white gown), Disheveled Consciousness: Alert, Highly distractible Orientation: Person, Place, Situation Motor Activity: Normal gait Speech: Pressured, Rapid Language: Perseveration Fund of Knowledge: Adequate Attention and Concentration: Easily distracted Memory: Impaired (cannot recall who the previous president was and states "[place] or Esteban", did not recall 12/16 events until assisted), Immediate ( intact), Recent (intact) Mood: Manic ("Good, I feel great, Praise the lord!") Affect: Labile Thought Process & Associations: Loose associations, Circumstantial, Disorganized , Tangential Thought Content: Bizarre thinking, Ideas of reference (states that the TV talks to everyone who can hear it except for when it is on the [employer] channel), Hallucinations, Racing thoughts, Preoccupations Hallucination Type: Auditory ("God speaks to me" according to prior note, but currently denies hearing any a/v/t hallucinations at this time) Delusion Type: Bizarre (Sikh, Grandiose, and Sexual), Paranoid Suicidal Ideation: No Suicidal Plan: No Suicidal Intention: No Homicidal Ideation: No Homicidal Plan: No Homicidal Intention: No Insight: Fair (Recognizes that she is currently having a Manic Episode and wants medical treatment for her current state) Judgment: Poor Assessment and Plan - Assessment (1) Bipolar affective, manic, severe w/ psych Code(s): F31.2 - Bipolar disorder, current episode manic severe with psychotic features Status: Acute - Plan Plan: 1:1 sitter ordered due to inappropriate behaviors and agitation.Continue current medications Justification for Continued Inpatient Stay: Moving patient to a less restrictive environment may result in her decompensation.
[2018-01-25] MEDS: traZODone 50 MG Tablet PO SCH (21:06)
[2018-01-26] MEDS: Insulin NovoLOG Aspart Correctional Sugar Inj SQ SCH ×5 (02:57→16:22)
[2018-01-26] MEDS: Levothyroxine 75 MCG Tablet PO SCH (06:05)
[2018-01-26] MEDS: carBAMazepine 100 MG Chewable Tablets PO SCH ×2 (08:11→20:09)
[2018-01-26] MEDS: OLANZapine 15 MG Tablet PO SCH ×2 (08:11→20:07)
[2018-01-26] MEDS: Rivaroxaban 10 MG Tablet PO SCH (08:12)
[2018-01-26] MEDS: Metoclopramide 10 MG Tablet PO SCH ×4 (08:12→20:07)
[2018-01-26] MEDS: Pantoprazole Sodium 20 MG DR Tablet PO SCH (08:12)
[2018-01-26] MEDS: Senna/Docusate Sodium 8.6/50 MG Tablet PO SCH (08:12)
[2018-01-26] MEDS: Sodium Chloride 1 GM Tablet PO SCH (08:14)
[2018-01-26] MEDS: Sodium Chloride 0.9% 2 ML Flush BID IV.FLUSH SCH (08:14)
--- NOTE | 2018-01-26 10:27 | P.PNPSY ---
Subjective Chief Complaint: Bipolar I Disorder - current Manic Episode Remarks: Patient is seen with nurse Cira. Nurses report reviewed. Continues to drink large amounts of water. Slept approx. 4 hours with Trazodone. Remains on 1:1 due to intrusive behavior. She is seen walking in the hallway. Difficult to redirect. Speech is pressured, tangential, religiously preoccupied. Irritable. States " I'm taking over the world. I can speak in tongues, you just wait and see. I'm dressed in white". Current Tegretol level is 4.7. Review of Systems All other systems reviewed negative except as stated in HPI Mental Status Examination Appearance: Appropriate, Disheveled Consciousness: Alert, Highly distractible Orientation: Person, Place, Situation Motor Activity: Normal gait Speech: Pressured, Rapid, Other (unable to interrupt her) Language: Perseveration Fund of Knowledge: Adequate Attention and Concentration: Easily distracted Memory: Impaired (cannot recall who the previous president was and states "Leandro or Esteban", did not recall 12/16 events until assisted), Immediate ( intact), Recent (intact) Mood: Manic Affect: Labile Thought Process & Associations: Loose associations, Circumstantial, Disorganized , Tangential, Other (religiously preocupied) Thought Content: Bizarre thinking, Ideas of reference (states that the TV talks to everyone who can hear it except for when it is on the [employer] channel), Hallucinations, Racing thoughts, Preoccupations, Delusional Hallucination Type: Auditory ( currently denies hearing any a/v/t hallucinations at this time) Delusion Type: Bizarre (Evangelical, Grandiose, and Sexual), Paranoid, Other ( baptist) Suicidal Ideation: No Suicidal Plan: No Suicidal Intention: No Homicidal Ideation: No Homicidal Plan: No Homicidal Intention: No Insight: Fair (Recognizes that she is currently having a Manic Episode and wants medical treatment for her current state) Judgment: Poor Assessment and Plan - Assessment (1) Bipolar affective, manic, severe w/ psych Code(s): F31.2 - Bipolar disorder, current episode manic severe with psychotic features Status: Acute (2) Cannabis abuse Code(s): F12.10 - Cannabis abuse, uncomplicated Status: Acute - Plan Plan: 1.Will check CMP. 2.Increase Tegretol to 150 mg po BID. 3.Tegretol level $. Continue 1:1 due to continued shelley Justification for Continued Inpatient Stay: Patient continues with manic behaviors which put her at risk of harm. Requires continued inpatient treatment for stabilization, medication adjustments, safety.
[2018-01-26 15:12] LABS: Alanine Aminotransferase 26 U/L (10-53); Albumin 4.4 g/dL (3.4-5.0); Anion Gap 6 meq/L (5-15); Aspartate Aminotransferase 21 U/L (15-37); Blood Urea Nitrogen 11 mg/dL (7-18); Calcium 9.6 mg/dL (8.5-10.1); Carbon Dioxide 27.9 meq/L (21.0-32.0); Chloride 104 meq/L (98-107); Glomerular Filtration Rate 76 mL/min (>89); Glucose,Random 98 mg/dL (74-106); Potassium 4.1 meq/L (3.5-5.1); Sodium 138 meq/L (136-145)
[2018-01-26 15:14] LABS: Alkaline Phosphatase 66 U/L (45-117); Carbamazepine (Tegretol) 5.1 mcg/mL (4.0-12.0); Total Protein 7.2 g/dL (6.4-8.2)
[2018-01-26] MEDS: traZODone 50 MG Tablet PO SCH (20:07)
[2018-01-26] MEDS: Acetaminophen 325 MG Tablet PO PRN (20:10)
[2018-01-27] MEDS: Acetaminophen 325 MG Tablet PO PRN ×2 (05:29→10:23)
[2018-01-27] MEDS: Insulin NovoLOG Aspart Correctional Sugar Inj SQ SCH ×6 (05:30→22:19)
[2018-01-27] MEDS: Sodium Chloride 0.9% 2 ML Flush BID IV.FLUSH SCH ×3 (05:33→22:20)
[2018-01-27] MEDS: Levothyroxine 75 MCG Tablet PO SCH (06:28)
[2018-01-27] MEDS: carBAMazepine 100 MG Chewable Tablets PO SCH ×2 (08:40→22:18)
[2018-01-27] MEDS: OLANZapine 15 MG Tablet PO SCH ×2 (08:42→22:20)
[2018-01-27] MEDS: Rivaroxaban 10 MG Tablet PO SCH (08:42)
[2018-01-27] MEDS: Sodium Chloride 1 GM Tablet PO SCH (08:42)
[2018-01-27] MEDS: Pantoprazole Sodium 20 MG DR Tablet PO SCH (08:42)
[2018-01-27] MEDS: Metoclopramide 10 MG Tablet PO SCH ×4 (08:43→22:18)
[2018-01-27] MEDS: Senna/Docusate Sodium 8.6/50 MG Tablet PO SCH (08:43)
--- NOTE | 2018-01-27 16:18 | P.PNPSY ---
Subjective Chief Complaint: Bipolar I Disorder - current Manic Episode Remarks: Patient seen for follow-up, chart reviewed. Discussion with nursing staff reported that patient continues with pressured speech and intrusive with other patients. Patient was found ambulating on the unit noted to be talkative, with pressured speech and tangential during interview with flight of ideas and loosening associations. Patient states that she is feeling "awesome" stating that she has been having difficulty with sleep, continues pressured speech tangential with flight of ideas. Patient also mentions wanting discharge but is aware with a fair amount of insight that she is currently having a manic episode and noted be tearful toward interview to you when speaking about this. Discussion of increase in Tegretol was reviewed which slow and careful titration is required due to recent history of hyponatremia but patient was also reminded of the importance of restricting p.o. water intake to avoid hyponatremia. Review of Systems All other systems reviewed negative except as stated in HPI Mental Status Examination Appearance: Appropriate Consciousness: Alert, Highly distractible Orientation: Person, Place, Situation Motor Activity: Normal gait Speech: Pressured, Rapid Language: Perseveration Fund of Knowledge: Adequate Attention and Concentration: Easily distracted Memory: Impaired (cannot recall who the previous president was and states "[place] or Esteban", did not recall 12/16 events until assisted), Immediate ( intact), Recent (intact) Mood: Manic Affect: Labile Thought Process & Associations: Loose associations, Circumstantial, Disorganized , Tangential Thought Content: Bizarre thinking, Ideas of reference (states that the TV talks to everyone who can hear it except for when it is on the [employer] channel), Hallucinations, Racing thoughts, Preoccupations, Delusional Hallucination Type: Auditory ( currently denies hearing any a/v/t hallucinations at this time) Delusion Type: Bizarre (Christian, Grandiose, and Sexual), Paranoid, Other ( sabianist) Suicidal Ideation: No Suicidal Plan: No Suicidal Intention: No Homicidal Ideation: No Homicidal Plan: No Homicidal Intention: No Insight: Fair (Recognizes that she is currently having a Manic Episode and wants medical treatment for her current state) Judgment: Poor Assessment and Plan - Assessment (1) Bipolar affective, manic, severe w/ psych Code(s): F31.2 - Bipolar disorder, current episode manic severe with psychotic features Status: Acute (2) Cannabis abuse Code(s): F12.10 - Cannabis abuse, uncomplicated Status: Acute - Plan Plan: Patient this time continues with manic symptoms such as pressured speech, flight of ideas, racing thoughts, sexually preoccupied, intrusive with fair insight into current manic episode. Patient compliant with medications. We will continue with recent increase in Tegretol to 150 p.o. twice daily with plan to continue titration to 200 mg p.o. twice daily tomorrow. We will continue to monitor sodium levels. Continue to monitor p.o. 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 Continue rest of medications. Continue to monitor mood and behavior. Discharge planning in progress. Justification for Continued Inpatient Stay: At risk of further decompensation at lower level care.
[2018-01-27] MEDS: traZODone 50 MG Tablet PO SCH (22:19)
[2018-01-28] MEDS: Insulin NovoLOG Aspart Correctional Sugar Inj SQ SCH ×5 (03:45→20:22)
[2018-01-28] MEDS: carBAMazepine 100 MG Chewable Tablets PO SCH ×2 (08:22→20:17)
[2018-01-28] MEDS: Senna/Docusate Sodium 8.6/50 MG Tablet PO SCH (08:23)
[2018-01-28] MEDS: Metoclopramide 10 MG Tablet PO SCH ×4 (08:23→20:16)
[2018-01-28] MEDS: OLANZapine 15 MG Tablet PO SCH ×2 (08:23→20:17)
[2018-01-28] MEDS: Pantoprazole Sodium 20 MG DR Tablet PO SCH (08:23)
[2018-01-28] MEDS: Sodium Chloride 1 GM Tablet PO SCH (08:24)
[2018-01-28] MEDS: Rivaroxaban 10 MG Tablet PO SCH (08:24)
[2018-01-28] MEDS: Levothyroxine 75 MCG Tablet PO SCH (08:30)
[2018-01-28] MEDS: Sodium Chloride 0.9% 2 ML Flush BID IV.FLUSH SCH ×2 (13:21→20:22)
--- NOTE | 2018-01-28 15:50 | P.TTN ---
- Patient Problems Problems: 1. Discharge planning 2. Medication compliance 3. Knowledge deficit 4. Lack of coping skills - Progress Toward Goals Provider Present: Dr. Amparo Dodson Provider Input: 01/28: Adjusting and increasing pt's medications today, pt is homeless, case management is working on placement to [facility], watch water intake due to decrease in sodium Nurse(s) Present: Agnieszka Nurse Input: 01/28: Pt remains manic, hyperverbal, religiously preoccupied, rapid pressured speech, med compliant Psychiatric Counselors Present: Steffanie Liz [facility] Group Spec/RT/OT/BARRERA Present: HOLLY Ratliff Group Spec/RT/OT/BARRERA Input: 01/28: Pt attends select groups with 1:1 and constant redirection to remain quiet, focused, seated. Manic, intrusive, hyperverbal, increase in participation noted, pt is able to complete simple tasks Clinical Coordinator: Tasha Mathews [facility] - Discharge Plan Other 01/28: Pt discharge planning in progress with placement to [facility] - Documentation Teaching Recipient: Patient
[2018-01-28 17:12] LABS: Alanine Aminotransferase 27 U/L (10-53); Albumin 4.2 g/dL (3.4-5.0); Anion Gap 6 meq/L (5-15); Aspartate Aminotransferase 19 U/L (15-37); Blood Urea Nitrogen 14 mg/dL (7-18); Calcium 9.2 mg/dL (8.5-10.1); Carbon Dioxide 25.9 meq/L (21.0-32.0); Chloride 102 meq/L (98-107); Glomerular Filtration Rate 73 mL/min (>89); Glucose,Random 97 mg/dL (74-106); Sodium 134 meq/L (136-145)
[2018-01-28 17:15] LABS: Alkaline Phosphatase 72 U/L (45-117); Total Protein 7.1 g/dL (6.4-8.2)
[2018-01-28] MEDS: traZODone 50 MG Tablet PO SCH (20:17)
--- NOTE | 2018-01-28 22:03 | P.PNPSY ---
Subjective Chief Complaint: Bipolar I Disorder - current Manic Episode Remarks: Patient seen for follow-up, chart reviewed. Discussion with nursing staff reported that patient continues to be ambulatory on the unit, continues to have disorganization, intrusive and sexually inappropriate at times. Patient was found participating in group activity was able to engage in interview and seen with nurse. Patient is states that she is having "happy to use" and noted to be tearful at onset of interview with labile mood but continues with pressured speech stating that she had difficulty with sleep in the evening. Although patient continues to have these manic symptoms is able to be interrupted during rambling and able to return back to appropriate responses to questioning but will at times be tangential. Patient does not make random statements such as "to the mood and back". She mentions having tried trazodone in the past which has not helped her with sleep. Review of Systems All other systems reviewed negative except as stated in HPI Mental Status Examination Appearance: Appropriate Consciousness: Alert, Highly distractible Orientation: Person, Place, Situation Motor Activity: Normal gait Speech: Pressured, Rapid Language: Perseveration Fund of Knowledge: Adequate Attention and Concentration: Easily distracted Memory: Impaired (cannot recall who the previous president was and states "[place] or Esteban", did not recall 12/16 events until assisted), Immediate ( intact), Recent (intact) Mood: Manic Affect: Labile Thought Process & Associations: Loose associations, Circumstantial, Disorganized , Tangential Thought Content: Bizarre thinking, Ideas of reference (states that the TV talks to everyone who can hear it except for when it is on the [employer] channel), Hallucinations, Racing thoughts, Preoccupations, Delusional Hallucination Type: Auditory ( currently denies hearing any a/v/t hallucinations at this time) Delusion Type: Bizarre (Mandaeism, Grandiose, and Sexual), Paranoid, Other ( mosque) Suicidal Ideation: No Suicidal Plan: No Suicidal Intention: No Homicidal Ideation: No Homicidal Plan: No Homicidal Intention: No Insight: Fair (Recognizes that she is currently having a Manic Episode and wants medical treatment for her current state) Judgment: Poor Assessment and Plan - Assessment (1) Bipolar affective, manic, severe w/ psych Code(s): F31.2 - Bipolar disorder, current episode manic severe with psychotic features Status: Acute (2) Cannabis abuse Code(s): F12.10 - Cannabis abuse, uncomplicated Status: Acute - Plan Plan: Patient continues with current manic symptoms with pressured speech, labile mood , tangential, and at 60 preoccupation with comments but noted to be less intrusive, able to be interactive during pressured speech and noted to be more redirectable during interview. We will order CMP to monitor his sodium levels, will increase Tegretol 200 mg p.o. twice daily for mood stabilization, continue rest of medications. Continue to monitor mood and behavior. Patient reminded to monitor water intake is she has had issues with hyponatremia before and also to monitor for possible psychogenic polydipsia. Discharge planning in progress. Justification for Continued Inpatient Stay: At risk of further decompensation at lower level care.
[2018-01-29] MEDS: Acetaminophen 325 MG Tablet PO PRN (03:54)
[2018-01-29] MEDS: Insulin NovoLOG Aspart Correctional Sugar Inj SQ SCH ×5 (05:21→21:04)
[2018-01-29] MEDS: Levothyroxine 75 MCG Tablet PO SCH (06:04)
[2018-01-29] MEDS: Sodium Chloride 1 GM Tablet PO SCH (08:00)
[2018-01-29] MEDS: Metoclopramide 10 MG Tablet PO SCH ×4 (08:00→21:02)
[2018-01-29] MEDS: carBAMazepine 100 MG Chewable Tablets PO SCH ×2 (08:00→21:02)
[2018-01-29] MEDS: OLANZapine 15 MG Tablet PO SCH ×2 (08:00→21:02)
[2018-01-29] MEDS: Rivaroxaban 10 MG Tablet PO SCH (08:01)
[2018-01-29] MEDS: Senna/Docusate Sodium 8.6/50 MG Tablet PO SCH (08:01)
[2018-01-29] MEDS: Pantoprazole Sodium 20 MG DR Tablet PO SCH (08:01)
[2018-01-29] MEDS: Sodium Chloride 0.9% 2 ML Flush BID IV.FLUSH SCH ×2 (08:12→21:04)
--- NOTE | 2018-01-29 14:50 | P.PNPSY ---
Subjective Chief Complaint: Bipolar I Disorder - current Manic Episode Remarks: Patient was seen and case discussed with nursing. Patient remains floridly psychotic and manic. She is hyperactive hyperverbal, very disheveled. Mood is elevated and patient is grandiose. Patient has bizarre delusions. She is going to group and behaving well on the unit. Compliant with medications. She denies suicidal or homicidal ideation intent or plan Mental Status Examination Appearance: Appropriate Consciousness: Alert, Highly distractible Orientation: Person, Place, Situation Motor Activity: Normal gait Speech: Pressured, Rapid Language: Perseveration Fund of Knowledge: Adequate Attention and Concentration: Easily distracted Memory: Impaired (cannot recall who the previous president was and states "Leandro or Esteban", did not recall 12/16 events until assisted), Immediate ( intact), Recent (intact) Mood: Manic Affect: Labile Thought Process & Associations: Loose associations, Circumstantial, Disorganized , Tangential Thought Content: Bizarre thinking, Ideas of reference (states that the TV talks to everyone who can hear it except for when it is on the [employer] channel), Hallucinations, Racing thoughts, Preoccupations, Delusional Hallucination Type: Auditory ( currently denies hearing any a/v/t hallucinations at this time) Delusion Type: Bizarre (Cheondoism, Grandiose, and Sexual), Paranoid, Other ( anabaptist) Suicidal Ideation: No Suicidal Plan: No Suicidal Intention: No Homicidal Ideation: No Homicidal Plan: No Homicidal Intention: No Insight: Fair (Recognizes that she is currently having a Manic Episode and wants medical treatment for her current state) Judgment: Poor Assessment and Plan - Assessment (1) Bipolar affective, manic, severe w/ psych Code(s): F31.2 - Bipolar disorder, current episode manic severe with psychotic features Status: Acute (2) Cannabis abuse Code(s): F12.10 - Cannabis abuse, uncomplicated Status: Acute - Plan Plan: Psychiatrist from yesterday increased her Tegretol. Continue medication at current dosing and await response. Sodium level from yesterday was within normal limits Justification for Continued Inpatient Stay: Patient would decompensate in a less restrictive setting
[2018-01-29] MEDS: traZODone 50 MG Tablet PO SCH (21:03)
[2018-01-30] MEDS: Acetaminophen 325 MG Tablet PO PRN ×2 (01:52→09:36)
[2018-01-30] MEDS: Insulin NovoLOG Aspart Correctional Sugar Inj SQ SCH ×5 (04:17→20:41)
[2018-01-30] MEDS: Levothyroxine 75 MCG Tablet PO SCH (06:42)
[2018-01-30] MEDS: Metoclopramide 10 MG Tablet PO SCH ×4 (08:43→20:57)
[2018-01-30] MEDS: OLANZapine 15 MG Tablet PO SCH ×2 (08:44→20:57)
[2018-01-30] MEDS: Senna/Docusate Sodium 8.6/50 MG Tablet PO SCH (08:45)
[2018-01-30] MEDS: Pantoprazole Sodium 20 MG DR Tablet PO SCH (08:45)
[2018-01-30] MEDS: Sodium Chloride 1 GM Tablet PO SCH (08:46)
[2018-01-30] MEDS: carBAMazepine 100 MG Chewable Tablets PO SCH ×2 (08:46→20:56)
[2018-01-30] MEDS: Rivaroxaban 10 MG Tablet PO SCH (08:46)
[2018-01-30] MEDS: Sodium Chloride 0.9% 2 ML Flush BID IV.FLUSH SCH (08:47)
[2018-01-30 17:52] LABS: Carbon Dioxide 29.6 meq/L (21.0-32.0); Potassium 4.3 meq/L (3.5-5.1)
[2018-01-30] MEDS: traZODone 100 MG Tablet PO SCH (20:58)
--- NOTE | 2018-01-30 22:20 | P.PNPSY ---
Subjective Chief Complaint: Bipolar I Disorder - current Manic Episode Remarks: Patient seen for follow up; chart reviewed. Discussion with nursing staff reported that patient continue to be hyperverbal, poor sleep. Patient found ambulating on unit noted to have loosening associations rapid speech which is slightly improving and continued with the nonsensical statements at times and repeating phrases such as "over the phone and back". Patient denies any perceptional services or delusions at this time. Review of Systems All other systems reviewed negative except as stated in HPI Mental Status Examination Appearance: Appropriate Consciousness: Alert, Highly distractible Orientation: Person, Place, Situation Motor Activity: Normal gait Speech: Pressured, Rapid Language: Perseveration Fund of Knowledge: Adequate Attention and Concentration: Easily distracted Memory: Impaired (cannot recall who the previous president was and states "[place] or Esteban", did not recall 12/16 events until assisted), Immediate ( intact), Recent (intact) Mood: Manic Affect: Labile Thought Process & Associations: Loose associations, Circumstantial, Disorganized , Tangential Thought Content: Bizarre thinking, Ideas of reference (states that the TV talks to everyone who can hear it except for when it is on the [employer] channel), Hallucinations, Racing thoughts, Preoccupations, Delusional Hallucination Type: Auditory ( currently denies hearing any a/v/t hallucinations at this time) Delusion Type: Bizarre (Gnosticism, Grandiose, and Sexual), Paranoid, Other ( baptist) Suicidal Ideation: No Suicidal Plan: No Suicidal Intention: No Homicidal Ideation: No Homicidal Plan: No Homicidal Intention: No Insight: Fair (Recognizes that she is currently having a Manic Episode and wants medical treatment for her current state) Judgment: Poor Assessment and Plan - Assessment (1) Bipolar affective, manic, severe w/ psych Code(s): F31.2 - Bipolar disorder, current episode manic severe with psychotic features Status: Acute (2) Cannabis abuse Code(s): F12.10 - Cannabis abuse, uncomplicated Status: Acute - Plan Plan: Patient continues with pressured speech, intrusive which is lessening but continues to have loosening associations and difficulty with organization of her thoughts. We will start trazodone 100 mg p.o. at bedtime for sleep disturbance. We will continue to monitor sodium levels and to continue to titrate carefully Tegretol for mood stabilization. Continue rest of medications. Continue to monitor mood and behavior. Discharge planning in progress. Justification for Continued Inpatient Stay: At risk of further decompensation at lower level care.
[2018-01-31] MEDS: Sodium Chloride 0.9% 2 ML Flush BID IV.FLUSH SCH ×3 (00:43→20:55)
[2018-01-31] MEDS: Insulin NovoLOG Aspart Correctional Sugar Inj SQ SCH ×5 (03:00→20:52)
[2018-01-31] MEDS: Levothyroxine 75 MCG Tablet PO SCH (06:26)
[2018-01-31] MEDS: Sodium Chloride 1 GM Tablet PO SCH (08:42)
[2018-01-31] MEDS: Senna/Docusate Sodium 8.6/50 MG Tablet PO SCH (08:42)
[2018-01-31] MEDS: carBAMazepine 100 MG Chewable Tablets PO SCH ×2 (08:42→20:51)
[2018-01-31] MEDS: Rivaroxaban 10 MG Tablet PO SCH (08:42)
[2018-01-31] MEDS: Metoclopramide 10 MG Tablet PO SCH ×4 (08:42→20:51)
[2018-01-31] MEDS: OLANZapine 15 MG Tablet PO SCH ×2 (08:42→20:51)
[2018-01-31] MEDS: Pantoprazole Sodium 20 MG DR Tablet PO SCH (08:42)
--- NOTE | 2018-01-31 14:43 | P.PNPSY ---
Subjective Chief Complaint: Bipolar I Disorder - current Manic Episode Remarks: Patient seen and examined in weekend coverage for Dr. Dodson. Chart reviewed. Case discussed with nursing staff who reports the patient remains manic but is perhaps starting to slow down with adjustment in carbamazepine. On my examination today, the patient presents as elated and disinhibited. Her speech is not terribly pressured though. Affect is expansive. No psychotic material. No side effects from medications. Complains of chronic back pain but no other acute physical complaints. Asking for NSAID, but decreased GFR makes use of such an agent less than ideal. Vital Signs Temp Pulse Resp BP Pulse Ox 01/31/18 13:09 97.6 F 99 H 16 138/75 100 01/31/18 05:34 97.5 F L 17 148/74 H 98 01/30/18 16:51 97.7 F 92 H 18 150/73 H 98 Intake and Output 01/30/18 01/31/18 01/31/18 22:59 06:59 14:59 Intake Total 240 / 240 480 / 480 Balance 240 / 240 480 / 480 Intake: Oral 240 / 240 480 / 480 Other: Date of Last Bowel Movement 01/21/18 01/30/18 Labs reviewed. Mild hyponatremia noted. Decreased GFR noted. Review of Systems unobtainable due to mental condition Mental Status Examination Appearance: Appropriate Consciousness: Alert, Highly distractible Orientation: Person, Place Motor Activity: Normal gait, Other (No motor abnormalities noted) Speech: Unremarkable Language: Adequate Fund of Knowledge: Adequate Attention and Concentration: Easily distracted Mood: Other (Elevated) Affect: Other (Expansive) Thought Process & Associations: Loose associations, Tangential Thought Content: Bizarre thinking Hallucination Type: None Delusion Type: None Suicidal Ideation: No Homicidal Ideation: No Insight: Poor Judgment: Poor Assessment and Plan - Assessment (1) Bipolar affective, manic, severe w/ psych Code(s): F31.2 - Bipolar disorder, current episode manic severe with psychotic features Status: Acute (2) Cannabis abuse Code(s): F12.10 - Cannabis abuse, uncomplicated Status: Acute - Plan Plan: Carbamazepine dose recently adjusted. Continue current psychotropics as ordered. Continue one-to-one sitter for behavioral redirection. Patient has Tylenol available as needed for pain. Continue to monitor on the inpatient psychiatric unit. Continue other medications and care as ordered. Justification for Continued Inpatient Stay: High risk for decompensation in less restrictive environment. Discharge Planning: Per Dr. Dodson
[2018-01-31] MEDS: Lidocaine 5% Patch T-DERMAL SCH (17:13)
[2018-01-31] MEDS: traZODone 100 MG Tablet PO SCH (20:52)
[2018-02-01] MEDS: Acetaminophen 325 MG Tablet PO PRN ×2 (03:14→14:27)
[2018-02-01] MEDS: Levothyroxine 75 MCG Tablet PO SCH (06:22)
[2018-02-01] MEDS: Insulin NovoLOG Aspart Correctional Sugar Inj SQ SCH ×5 (06:23→21:25)
[2018-02-01] MEDS: carBAMazepine 100 MG Chewable Tablets PO SCH ×2 (08:23→21:24)
[2018-02-01] MEDS: Pantoprazole Sodium 20 MG DR Tablet PO SCH (08:23)
[2018-02-01] MEDS: Senna/Docusate Sodium 8.6/50 MG Tablet PO SCH (08:24)
[2018-02-01] MEDS: Metoclopramide 10 MG Tablet PO SCH ×4 (08:24→21:24)
[2018-02-01] MEDS: Sodium Chloride 0.9% 2 ML Flush BID IV.FLUSH SCH ×2 (08:24→21:26)
[2018-02-01] MEDS: Lidocaine 5% Patch T-DERMAL SCH (08:24)
[2018-02-01] MEDS: Sodium Chloride 1 GM Tablet PO SCH (08:24)
[2018-02-01] MEDS: OLANZapine 15 MG Tablet PO SCH ×2 (08:24→21:24)
[2018-02-01] MEDS: Rivaroxaban 10 MG Tablet PO SCH (08:27)
--- NOTE | 2018-02-01 13:01 | P.PNPSY ---
Subjective Chief Complaint: Bipolar I Disorder - current Manic Episode Remarks: Chart reviewed and discussed with nursing staff. Nursing staff feel that she is less manic now that she started the Carbamazepine. She is currently in her room resting. She continues to be 1:1 due to her intrusive behavior, sexually preoccupied and bothering other patients. She does re-direct without difficulty. Speech does not appear pressured, affect is expansive, she endorses no racing thoughts. Review of Systems All other systems reviewed negative except as stated in HPI Mental Status Examination Appearance: Appropriate Consciousness: Alert, Highly distractible Orientation: Person, Place Motor Activity: Normal gait, Other (No motor abnormalities noted) Speech: Unremarkable Language: Adequate Fund of Knowledge: Adequate Attention and Concentration: Easily distracted Memory: Impaired (cannot recall who the previous president was and states "[place] or Esteban", did not recall 12/16 events until assisted), Immediate ( intact), Recent (intact) Mood: Other (Elevated) Affect: Other (Expansive) Thought Process & Associations: Loose associations, Tangential Thought Content: Bizarre thinking Hallucination Type: None Delusion Type: None Suicidal Ideation: No Suicidal Plan: No Suicidal Intention: No Homicidal Ideation: No Homicidal Plan: No Homicidal Intention: No Insight: Poor Judgment: Poor Assessment and Plan - Assessment (1) Bipolar affective, manic, severe w/ psych Code(s): F31.2 - Bipolar disorder, current episode manic severe with psychotic features Status: Acute - Plan Plan: Continue current treatment plan. Justification for Continued Inpatient Stay: Moving patient to a less restrictive environment may result in her decompensation.
[2018-02-01 14:35] LABS: Calcium 9.1 mg/dL (8.5-10.1); Carbon Dioxide 27.1 meq/L (21.0-32.0); Potassium 4.1 meq/L (3.5-5.1)
[2018-02-01] MEDS: traZODone 100 MG Tablet PO SCH (21:24)
[2018-02-02] MEDS: Insulin NovoLOG Aspart Correctional Sugar Inj SQ SCH ×5 (03:40→21:08)
[2018-02-02] MEDS: Levothyroxine 75 MCG Tablet PO SCH (05:58)
[2018-02-02 07:21] LABS: Alanine Aminotransferase 26 U/L (10-53); Albumin 3.9 g/dL (3.4-5.0); Anion Gap 9 meq/L (5-15); Aspartate Aminotransferase 18 U/L (15-37); Blood Urea Nitrogen 12 mg/dL (7-18); Calcium 9.3 mg/dL (8.5-10.1); Carbon Dioxide 24.4 meq/L (21.0-32.0); Chloride 102 meq/L (98-107); Glomerular Filtration Rate 86 mL/min (>89); Glucose,Random 96 mg/dL (74-106); Potassium 4.1 meq/L (3.5-5.1); Sodium 135 meq/L (136-145)
[2018-02-02 07:23] LABS: Alkaline Phosphatase 79 U/L (45-117); Total Protein 6.8 g/dL (6.4-8.2)
[2018-02-02] MEDS: OLANZapine 15 MG Tablet PO SCH ×2 (08:15→21:12)
[2018-02-02] MEDS: Rivaroxaban 10 MG Tablet PO SCH (08:15)
[2018-02-02] MEDS: Senna/Docusate Sodium 8.6/50 MG Tablet PO SCH (08:15)
[2018-02-02] MEDS: Metoclopramide 10 MG Tablet PO SCH ×4 (08:16→21:06)
[2018-02-02] MEDS: carBAMazepine 100 MG Chewable Tablets PO SCH ×2 (08:16→21:05)
[2018-02-02] MEDS: Sodium Chloride 1 GM Tablet PO SCH (08:16)
[2018-02-02] MEDS: Pantoprazole Sodium 20 MG DR Tablet PO SCH (08:17)
[2018-02-02] MEDS: Lidocaine 5% Patch T-DERMAL SCH (08:34)
--- NOTE | 2018-02-02 09:27 | P.TTN ---
- Patient Problems Problems: 1. Discharge planning 2. Medication compliance 3. Knowledge deficit 4. Lack of coping skills - Progress Toward Goals Provider Present: Dr. Amparo Dodson (February 02, 2018 patient's shelley is softening, Dr. Dodson intends to remove the one-on-one, titrating medications, patient remains for further stabilization.) Provider Input: 01/28: Adjusting and increasing pt's medications today, pt is homeless, case management is working on placement to [facility], watch water intake due to decrease in sodium Nurse(s) Present: Agnieszka Nurse Input: 01/28: Pt remains manic, hyperverbal, religiously preoccupied, rapid pressured speech, med compliant Psychiatric Counselors Present: TIFFANIE Can Group Spec/RT/OT/BARRERA Present: HOLLY Ratliff, HOLLY Harper ( February 02, 2018 patient attends select groups and is redirectable) Group Spec/RT/OT/BARRERA Input: 01/28: Pt attends select groups with 1:1 and constant redirection to remain quiet, focused, seated. Manic, intrusive, hyperverbal, increase in participation noted, pt is able to complete simple tasks Clinical Coordinator: TIFFANIE Talavera - Discharge Plan Other 01/28: Pt discharge planning in progress with placement to [facility] - Documentation Teaching Recipient: Patient
[2018-02-02] MEDS: Sodium Chloride 0.9% 2 ML Flush BID IV.FLUSH SCH ×2 (11:37→21:08)
--- NOTE | 2018-02-02 20:03 | P.PNPSY ---
Subjective Chief Complaint: Bipolar I Disorder - current Manic Episode Remarks: Patient seen for follow-up, chart reviewed. Discussion with nursing staff reported that patient noted be less inappropriate, less intrusive than slept 6 hours last evening. Patient was found in day room noted B, cooperative. Patient also noted to have less pressured speech today although continues to have occasional tangentiality but less so now. Patient reports that her weekend went "awesome" she also endorses the same as far as her mood. Patient states that she does not feel her heart racing and feels that she is speaking slower now. She reports having slept well last night she was happy about. Plan of having patient discontinue one-to-one observation was reviewed which she agreed to maintain appropriate boundaries and refrain from and appropriate comments to others. She denies any auditory visual hallucinations. Denies any suicidal homicidal ideations at this time. Review of Systems All other systems reviewed negative except as stated in HPI Mental Status Examination Appearance: Appropriate Consciousness: Alert, Highly distractible (Lessening) Orientation: Person, Place, Situation Motor Activity: Normal gait Speech: Pressured, Rapid Language: Perseveration Fund of Knowledge: Adequate Attention and Concentration: Easily distracted Memory: Impaired (cannot recall who the previous president was and states "[place] or Esteban", did not recall / events until assisted), Immediate ( intact), Recent (intact) Mood: Manic (Lessening) Affect: Labile (Lessening) Thought Process & Associations: Loose associations (Lessening), Disorganized ( Lessening), Tangential (Lessening) Thought Content: Bizarre thinking, Ideas of reference (states that the TV talks to everyone who can hear it except for when it is on the [employer] channel), Preoccupations, Delusional Hallucination Type: None Delusion Type: Bizarre (Restorationist, Grandiose, and Sexual), Paranoid (Lessening) , Other (gnosticist) Suicidal Ideation: No Suicidal Plan: No Suicidal Intention: No Homicidal Ideation: No Homicidal Plan: No Homicidal Intention: No Insight: Fair (Recognizes that she is currently having a Manic Episode and wants medical treatment for her current state) Judgment: Poor Assessment and Plan - Assessment (1) Bipolar affective, manic, severe w/ psych Code(s): F31.2 - Bipolar disorder, current episode manic severe with psychotic features Status: Acute (2) Cannabis abuse Code(s): F12.10 - Cannabis abuse, uncomplicated Status: Acute - Plan Plan: Patient with improving sodium levels and tolerating medications well. Patient now sleeping more adequately and noted to have less pressured speech and less tangentiality is more redirectable during tangents. Patient also noted to be less intrusive on the unit than improvement behaviorally. We will discontinue one-to-one observation. We will continue to monitor sodium levels. Will continue to titrate carbamazepine for continued stabilization. Continue rest of medications. Continue to monitor mood and behavior. Discharge planning in progress. Justification for Continued Inpatient Stay: At risk of further decompensation at lower level care.
[2018-02-02] MEDS: traZODone 100 MG Tablet PO SCH (21:07)
[2018-02-02] MEDS: Acetaminophen 325 MG Tablet PO PRN (21:31)
[2018-02-03] MEDS: Insulin NovoLOG Aspart Correctional Sugar Inj SQ SCH ×5 (03:21→20:34)
[2018-02-03] MEDS: Levothyroxine 75 MCG Tablet PO SCH (06:09)
[2018-02-03] MEDS: Metoclopramide 10 MG Tablet PO SCH ×4 (08:04→20:11)
[2018-02-03] MEDS: OLANZapine 15 MG Tablet PO SCH ×2 (08:05→20:11)
[2018-02-03] MEDS: Rivaroxaban 10 MG Tablet PO SCH (08:05)
[2018-02-03] MEDS: Sodium Chloride 1 GM Tablet PO SCH (08:06)
[2018-02-03] MEDS: carBAMazepine 100 MG Chewable Tablets PO SCH ×2 (08:06→20:11)
[2018-02-03] MEDS: Lidocaine 5% Patch T-DERMAL SCH (08:07)
[2018-02-03] MEDS: Pantoprazole Sodium 20 MG DR Tablet PO SCH (08:07)
[2018-02-03] MEDS: Senna/Docusate Sodium 8.6/50 MG Tablet PO SCH ×2 (08:07→10:00)
[2018-02-03] MEDS: Sodium Chloride 0.9% 2 ML Flush BID IV.FLUSH SCH ×2 (08:07→20:34)
--- NOTE | 2018-02-03 14:16 | P.PNPSY ---
Subjective Chief Complaint: Bipolar I Disorder - current Manic Episode Remarks: Reviewed electronic medical records and discussed case with staff. Follow-up was conducted in the hallway. When asked how she feels today the patient reports "over the crawford and back". She is noted to still have rapid somewhat pressured speech. When asked how she slept she states "9 hours asleep kev Grossman". When asked about her appetite she states "I am starving". She denies any side effects from the medication but does complain of some constipation. She asks if we could provide her some medication to "slow me down". I explained that we are working on this. She is observed being intrusive with other patients as well as with this provider. Mental Status Examination Appearance: Appropriate Consciousness: Alert, Highly distractible (Lessening) Orientation: Person, Place, Situation Motor Activity: Normal gait Speech: Pressured, Rapid Language: Perseveration Fund of Knowledge: Adequate Attention and Concentration: Easily distracted Memory: Impaired (cannot recall who the previous president was and states "[place] or Esteban", did not recall 12/16 events until assisted), Immediate ( intact), Recent (intact) Mood: Manic (Lessening) Affect: Labile (Lessening) Thought Process & Associations: Loose associations (Lessening), Disorganized ( Lessening), Tangential (Lessening) Thought Content: Bizarre thinking, Ideas of reference (states that the TV talks to everyone who can hear it except for when it is on the [employer] channel), Preoccupations, Delusional Hallucination Type: None Delusion Type: Bizarre (Sabianist, Grandiose, and Sexual), Paranoid (Lessening) , Other (methodist) Suicidal Ideation: No Suicidal Plan: No Suicidal Intention: No Homicidal Ideation: No Homicidal Plan: No Homicidal Intention: No Insight: Fair (Recognizes that she is currently having a Manic Episode and wants medical treatment for her current state) Judgment: Poor Assessment and Plan - Assessment (1) Bipolar affective, manic, severe w/ psych Code(s): F31.2 - Bipolar disorder, current episode manic severe with psychotic features Status: Acute - Plan Plan: Continue with current treatment plan. BMP is been ordered to check patient's sodium level. Justification for Continued Inpatient Stay: Moving this patient to a less restrictive environment would likely result in decompensation.
[2018-02-03] MEDS: Polyethylene Glycol 3350 17 GM Packet PO SCH (16:06)
[2018-02-03 16:25] LABS: Calcium 9.1 mg/dL (8.5-10.1); Carbon Dioxide 28.7 meq/L (21.0-32.0); Potassium 4.1 meq/L (3.5-5.1)
[2018-02-03] MEDS: traZODone 100 MG Tablet PO SCH (20:11)
[2018-02-04] MEDS: Insulin NovoLOG Aspart Correctional Sugar Inj SQ SCH ×5 (03:22→20:47)
[2018-02-04] MEDS: Levothyroxine 75 MCG Tablet PO SCH (05:12)
[2018-02-04] MEDS: Lidocaine 5% Patch T-DERMAL SCH (08:16)
[2018-02-04] MEDS: Polyethylene Glycol 3350 17 GM Packet PO SCH (08:17)
[2018-02-04] MEDS: carBAMazepine 100 MG Chewable Tablets PO SCH ×2 (08:18→20:28)
[2018-02-04] MEDS: OLANZapine 15 MG Tablet PO SCH ×2 (08:18→20:48)
[2018-02-04] MEDS: Rivaroxaban 10 MG Tablet PO SCH (08:18)
[2018-02-04] MEDS: Senna/Docusate Sodium 8.6/50 MG Tablet PO SCH (08:18)
[2018-02-04] MEDS: Metoclopramide 10 MG Tablet PO SCH ×4 (08:18→20:28)
[2018-02-04] MEDS: Pantoprazole Sodium 20 MG DR Tablet PO SCH (08:19)
[2018-02-04] MEDS: Sodium Chloride 1 GM Tablet PO SCH (09:10)
[2018-02-04] MEDS: Sodium Chloride 0.9% 2 ML Flush BID IV.FLUSH SCH ×2 (09:11→20:48)
--- NOTE | 2018-02-04 10:47 | P.PNPSY ---
Subjective Chief Complaint: Bipolar I Disorder - current Manic Episode Remarks: Reviewed electronic medical records and discussed case with staff. Follow-up was conducted in the patient's room with FRED Melgar present. Patient reports that she feels "wonderful". States that she slept 9 hours. Reports that she has a good appetite. Denies any side effects from medications. I was informed that the patient had dismantled parts of her hospital bed last night and was moved to a camera room as a result of this. When asked about the incident the patient states, "it's my fucking bed I will do what I want". I pointed out that it is in fact the hospital's bed and quite costly. She agreed to stop taking them apart. She did report that she would need help as "I need to file a bunch of lawsuits". She continues to remain manic with some rapid speech, intrusiveness. Staff does report she is being compliant with her medication and care. Mental Status Examination Appearance: Appropriate Consciousness: Alert, Highly distractible (Lessening) Orientation: Person, Place, Situation Motor Activity: Normal gait Speech: Pressured, Rapid Language: Perseveration Fund of Knowledge: Adequate Attention and Concentration: Easily distracted Memory: Impaired (cannot recall who the previous president was and states "[place] or Esteban", did not recall 12/16 events until assisted), Immediate ( intact), Recent (intact) Mood: Manic (Lessening) Affect: Labile (Lessening) Thought Process & Associations: Loose associations (Lessening), Disorganized ( Lessening), Tangential (Lessening) Thought Content: Bizarre thinking, Ideas of reference (states that the TV talks to everyone who can hear it except for when it is on the [employer] channel), Preoccupations, Delusional Hallucination Type: None Delusion Type: Bizarre (Faith, Grandiose, and Sexual), Paranoid (Lessening) , Other (yazidism) Suicidal Ideation: No Suicidal Plan: No Suicidal Intention: No Homicidal Ideation: No Homicidal Plan: No Homicidal Intention: No Insight: Fair (Recognizes that she is currently having a Manic Episode and wants medical treatment for her current state) Judgment: Poor Assessment and Plan - Assessment (1) Bipolar affective, manic, severe w/ psych Code(s): F31.2 - Bipolar disorder, current episode manic severe with psychotic features Status: Acute - Plan Plan: Patient will be reevaluated by the attending psychiatrist. Continue with current treatment plan. Justification for Continued Inpatient Stay: Moving this patient to a less restrictive environment would likely result in decompensation.
--- NOTE | 2018-02-04 14:19 | P.TTN ---
- Patient Problems Problems: 1. Discharge planning 2. Medication compliance 3. Knowledge deficit 4. Lack of coping skills - Progress Toward Goals Provider Present: Dr. Amparo Dodson (February 02, 2018 patient's shelley is softening, Dr. Dodson intends to remove the one-on-one, titrating medications, patient remains for further stabilization. February 04, 2018 patient remains manic, irritable, and needs to remain for further stabilization.) Provider Input: 01/28: Adjusting and increasing pt's medications today, pt is homeless, case management is working on placement to [facility], watch water intake due to decrease in sodium Nurse(s) Present: Agnieszka Nurse Input: 01/28: Pt remains manic, hyperverbal, religiously preoccupied, rapid pressured speech, med compliant Psychiatric Counselors Present: Isaac Lentz Jr., [facility] (Counselor spoke with Alice from [facility]. Alice is requesting the patient will return to their facility upon discharge), TIFFANIE Can Group Spec/RT/OT/BARRERA Present: HOLLY Ratliff (Patient attends select groups and is redirectable.), HOLLY Harper (February 02, 2018 patient attends select groups and is redirectable) Group Spec/RT/OT/BARRERA Input: 01/28: Pt attends select groups with 1:1 and constant redirection to remain quiet, focused, seated. Manic, intrusive, hyperverbal, increase in participation noted, pt is able to complete simple tasks Clinical Coordinator: TIFFANIE Talavera - Discharge Plan Other 01/28: Pt discharge planning in progress with placement to [facility] - Documentation Teaching Recipient: Patient
[2018-02-04] MEDS: traZODone 100 MG Tablet PO SCH (20:28)
[2018-02-05] MEDS ORDERED: Ibuprofen 600 MG Tablet PO SCH (01:00)
[2018-02-05] MEDS: Insulin NovoLOG Aspart Correctional Sugar Inj SQ SCH ×3 (03:07→14:13)
[2018-02-05] MEDS: Levothyroxine 75 MCG Tablet PO SCH (05:26)
[2018-02-05] MEDS: carBAMazepine 100 MG Chewable Tablets PO SCH ×2 (08:31→21:24)
[2018-02-05] MEDS: Metoclopramide 10 MG Tablet PO SCH ×4 (08:32→21:24)
[2018-02-05] MEDS: OLANZapine 15 MG Tablet PO SCH ×2 (08:32→21:24)
[2018-02-05] MEDS: Senna/Docusate Sodium 8.6/50 MG Tablet PO SCH (08:33)
[2018-02-05] MEDS: Pantoprazole Sodium 20 MG DR Tablet PO SCH (08:33)
[2018-02-05] MEDS: Sodium Chloride 1 GM Tablet PO SCH (08:33)
[2018-02-05] MEDS: Rivaroxaban 10 MG Tablet PO SCH (08:34)
[2018-02-05] MEDS: Lidocaine 5% Patch T-DERMAL SCH (08:39)
[2018-02-05] MEDS: Polyethylene Glycol 3350 17 GM Packet PO SCH (08:39)
[2018-02-05] MEDS: Sodium Chloride 0.9% 2 ML Flush BID IV.FLUSH SCH ×2 (08:39→20:40)
[2018-02-05] MEDS ORDERED: Aluminum/Magnesium/Simethacone Susp 30 ML UDC PO ONE (11:12)
--- NOTE | 2018-02-05 11:20 | P.PN ---
Subjective Interval history: Reconsult for leg swelling and redness. Patient on Xarelto for ? DVT vs ischemic colitis. Patient also complained of chest pain this morning. At the time of my exam she is participating in group therapy. She reports that her leg swelling began yesterday, nurse notes that patient is constantly ambulating in the halls. She states that she has been on Lasix on the pas but states it was for something else not leg edema, she denies an history of CHF and none is documented in her history. She complains of redness that feels like a burn sensation and itching when the redness is toughed. She denies any calf pain or SOB. She denies any fevers or chills. Chest pain began a few hours ago according to patient, reports she had similar pain when she was having nausea and vomiting previously. She describes pain as burning sensation and points to epigastric area, nonradiating, rates pain 4/10, holding her epigastric area will alleviate pain. She denies any dizziness, SOB, or palpitations. Denies any nausea or vomiting, states she is "eating like a horse". Last BM was today, regular with no blood or black. Physical Exam Vital signs: Vital Signs 02/04/18 14:05 02/04/18 18:19 02/05/18 00:29 Temperature 99.0 F 98.2 F Pulse Rate 92 H 91 H 95 H Respiratory Rate 16 16 Blood Pressure 142/66 H 143/98 H 128/71 Pulse Oximetry 97 95 02/05/18 01:42 02/05/18 02:30 02/05/18 06:17 Temperature 98.2 F 97.8 F 97.9 F Pulse Rate 88 72 75 Respiratory Rate 16 16 16 Blood Pressure 128/71 139/71 140/67 Pulse Oximetry 95 99 99 02/05/18 10:01 Temperature 97.9 F Pulse Rate 82 Respiratory Rate 16 Blood Pressure 138/61 Pulse Oximetry 98 Intake & Output 02/04/18 02/05/18 02/05/18 18:59 06:59 18:59 Weight 84.5 kg Other: Date of Last Bowel Movement 01/30/18 Narrative: GENERAL: Well-developed, well-nourished, hyperactive, female in no apparent distress SKIN: Warm and dry. Bilateral leg edema noted R>L with no calf tenderness, + warmth to L leg. Erythema and warmth noted along right medial leg aspect extending from ankle to right below the knee. No visible pustules, drainage or open wounds. HEAD: Atraumatic. Normocephalic. EYES: Pupils equal and round. No scleral icterus. No injection or drainage. ENT: No nasal bleeding or discharge. Mucous membranes pink and moist. NECK: Trachea midline. CARDIOVASCULAR: Regular rate and rhythm. RESPIRATORY: No accessory muscle use. Clear to auscultation. Breath sounds equal bilaterally. GASTROINTESTINAL: Abdomen soft, rounded, tenderness to epigastric area. Normoactive bowel sounds. MUSCULOSKELETAL: Extremities without clubbing, cyanosis, or edema. No obvious deformities. Ambulating without difficulties. NEUROLOGICAL: Awake and alert. No obvious cranial nerve deficits. Motor grossly within normal limits. Normal speech. PSYCHIATRIC: Calm and cooperative. Results - Labs CBC & Chem 7: 02/05/18 11:55 02/03/18 15:45 Laboratory Results - last 24 hr 02/04/18 02/04/18 02/04/18 11:26 16:36 20:27 POC Glucose 101 128 H 121 H 02/05/18 03:04 POC Glucose 96 Assessment and Plan - Assessment (1) Abdominal pain Code(s): R10.9 - Unspecified abdominal pain (2) Bipolar affective, manic, severe w/ psych Code(s): F31.2 - Bipolar disorder, current episode manic severe with psychotic features Status: Acute (3) Diabetes type 2, controlled Code(s): E11.9 - Type 2 diabetes mellitus without complications Status: Acute (4) Hypothyroidism Code(s): E03.9 - Hypothyroidism, unspecified Status: Acute - Plan 52-year-old female with past medical history significant for DM2, hyponatremia, chronic constipation, on Xarelto for possible DVT versus ischemic colitis, bipolar DO admitted on 01/16 due to hyponatremia and acute manic episode. [facility] reconsulted for evaluation of lower extremity edema as well as chest pain. Lower extremity edema, possible cellulitis -Patient on Xarelto for reported DVT or ischemic colitis, patient is poor historian. No documented imaging in [facility] of DVT or ischemic colitis -Edema noted R>L along with erythema and warmth of lower extremity. Patient has been afebrile, mild leukopenia noted on CBC. - LE US with noted nonocclusive thrombus within right proximal and distal femoral vein and profundus vein. Consult hematology as patient developed thrombus while on anticoagulant, greatly appreciate assistance and recommendations. - Treat for possible cellulitis with oral Clindamycin, monitor for response. - Legs possibly also swollen due to consistent pacing in the halls by patient. -Encourage elevation. Chest pain, acute -Patient reports similar symptoms with nausea and vomiting previously. -Patient hemodynamically stable -EKG reviewed, normal sinus rhythm with no acute changes noted compared to prior EKG -Troponin negative, CKMB mildly elevated at 5.1 likely secondary to patient's pacing around the halls, trend enzymes in 6 hours -Appears to be more epigastric pain related, one-time dose of Maalox, continue Protonix DVT prophylaxisXarelto Discussed Condition With: Discussed with patient, RN, Dr. Bennie Millan, and Dr. Dodson.
[2018-02-05 12:12] LABS: Eos % (Auto) 0.1 % (0.0-4.0); Hematocrit 32.5 % (35.0-46.0); Hemoglobin 10.7 gm/dL (11.6-15.3); Lymph # (Auto) 1.2 th/mm3 (1.0-4.8); Lymph % (Auto) 35.9 % (9.0-44.0); Mean Corpuscular Hemoglobin 28.4 pg (27.0-34.0); Mean Platelet Volume 7.7 fL (7.0-11.0); Mono # (Auto) 0.4 th/mm3 (0.0-0.9); Mono % (Auto) 12.3 % (0.0-8.0); Neut # (Auto) 1.7 th/mm3 (1.8-7.7); Neut % (Auto) 50.7 % (16.0-70.0); Platelet Count 330 th/mm3 (150-450); Red Blood Count 3.78 mil/mm3 (4.00-5.30); Red Cell Distribution Width 13.8 % (11.6-17.2); White Blood Count 3.4 th/mm3 (4.0-11.0)
[2018-02-05 13:00] LABS: Creatine Kinase 156 U/L (26-192)
[2018-02-05 13:13] LABS: Creatine Kinase MB 5.1 ng/mL (0.5-3.6)
--- NOTE | 2018-02-05 14:00 | P.PNPSY ---
Subjective Chief Complaint: Bipolar I Disorder - current Manic Episode Remarks: Reviewed electronic medical records and discussed case with staff. Follow-up was conducted in the hallway. Patient seen walking the halls as per her usual. She is complaining of a "sharp, fiery pain in the midsternal area". She reports that she has had it for several hours now. Medical consult has been put in to address her chest pain as well as her leg pain. Will follow up with her findings. She reports that her mood is "good". But states that she has not slept very well. She does appear to be calmer today and more in control of herself although, she still remains somewhat physically intrusive. Mental Status Examination Appearance: Appropriate Consciousness: Alert, Highly distractible (Lessening) Orientation: Person, Place, Situation Motor Activity: Normal gait Speech: Rapid Language: Adequate Fund of Knowledge: Adequate Attention and Concentration: Easily distracted Memory: Impaired (cannot recall who the previous president was and states "[place] or Esteban", did not recall 12/16 events until assisted), Immediate ( intact), Recent (intact) Mood: Manic (Lessening) Affect: Appropriate Thought Process & Associations: Intact, Tangential (Lessening) Thought Content: Ideas of reference (states that the TV talks to everyone who can hear it except for when it is on the [employer] channel) Hallucination Type: None Delusion Type: Paranoid (Lessening), Other Suicidal Ideation: No Suicidal Plan: No Suicidal Intention: No Homicidal Ideation: No Homicidal Plan: No Homicidal Intention: No Insight: Fair (Recognizes that she is currently having a Manic Episode and wants medical treatment for her current state) Judgment: Impulsive Assessment and Plan - Assessment (1) Bipolar affective, manic, severe w/ psych Code(s): F31.2 - Bipolar disorder, current episode manic severe with psychotic features Status: Acute - Plan Plan: Patient will be reevaluated by the attending psychiatrist. Continue with current treatment plan. Justification for Continued Inpatient Stay: Moving this patient to a less restrictive environment would likely result in decompensation.
--- NOTE | 2018-02-05 14:43 | US ---
EXAM DATE: 02/05/2018 2:02 PM EDT AGE/SEX: 52 years / Female INDICATIONS: Bilateral leg swelling. CLINICAL DATA: This is the patient's subsequent encounter. Patient reports that signs and symptoms h ave been present for 3 weeks and indicates a pain score of 3/10. MEDICAL/SURGICAL HISTORY: . Hypercholesterolemia. Hypertension. Thyroid disease. Bipolar disord er. . Laparoscopy, gynecologic. COMPARISON: [facility] [place], [place] LEG BILATERAL VENOUS DOPPLER, 11/20/2015. . TECHNIQUE: Venous ultrasound of both lower extremities was performed from the inguinal ligament to t he proximal calf. Real-time, color Doppler and spectral tracing, compression and augmentation techni ques were used. FINDINGS: Right Leg: Nonocclusive thrombus within the right proximal and distal femoral vein and the profundus vein. The popliteal artery, common femoral artery, greater saphenous, posterior tibial and peroneal veins are patent. Left Leg: Normal compression of the deep venous system from the inguinal region to the proximal calf . No echogenic clot is seen. Normal response of the venous system to augmentation and respiration. Other: None. CONCLUSION: 1. Nonocclusive thrombus within the right leg. 2. No deep venous thrombosis left leg. Electronically signed by: Dejan Thomas MD 02/05/2018 2:41 PM EDT
--- NOTE | 2018-02-05 18:20 | P.CON ---
History of Present Illness Service: Hematology/oncology. Consult date: 02/05/18 Requesting Physician: Dejan Dodson Reason for Consult: Nonocclusive deep venous thrombosis involving the right lower extremity. Primary Care Provider: UNKNOWN Chief Complaint: "I am upset because they will not give me what I want ". History of Present Illness: Ms. Evans is a 52-year-old female whom I have been asked to see in the inpatient psychiatric unit for management of a nonocclusive right lower extremity deep venous thrombosis. This patient was hospitalized earlier this month for management of bipolar disorder and what appears to be shelley. Per the nursing staff the patient also has delusions and delirium. She had been pacing in the hallways and reported pain and swelling in her legs. Ultrasound Doppler study of the lower extremities was performed on 02/05/2018, she was noted to have an nonocclusive thrombosis involving the right lower extremity; the specific blood vessels involved included the proximal and distal femoral vein and the profundus vein. The patient had been on intermediate dose Xarelto at 10 mg once daily, it is not entirely clear why this patient had been on anticoagulation prior to the discovery of the lower extremity deep venous thrombosis. Per the electronic health record it appears she had a history of ischemic colitis, the patient verbally reports having had a blood clot in her veins in the leg previously. She is unable to provide me a very accurate history. Patient also reports symptoms of vaginal bleeding as well as blood on the toilet paper after she wiped. Review of Systems unobtainable due to mental condition Constitutional: Denies fatigue, Denies fever(s) Ears, Nose, Mouth, and Throat: Denies change in voice Cardiovascular: Denies chest pain Respiratory: Denies cough, Denies coughing up blood Gastrointestinal: Denies abdominal pain, Denies vomiting blood Genitourinary: Reports abnormal periods Musculoskeletal: Denies abnormal walking Skin/Breast: Reports itching, Denies acne Comments: Swelling of the right leg. Neurologic: Denies abnormal hearing Psychiatric: Reports abnormal sleep pattern Endocrine: Denies cold intolerance Hematologic/Lymphatic: Denies easy bleeding Allergic/Immunologic: Denies GI upset with certain foods PMFSH - History History Provided By: Patient - Medical History Medical History: Medical History (Last Reviewed 02/05/18 @ 18:14 by Darinel Fisher MD) Anemia Bipolar 1 disorder Depression Hyperlipidemia Hypertension Hypothyroid Schizophrenia - Surgical History Surgical History: Surgical History (Last Updated 02/05/18 @ 18:14 by Darinel Fisher MD) Hx of tonsillectomy - Family History Family History: Family History (Last Reviewed 01/17/18 @ 18:19 by Winston Ely DO) Other Family history unknown - Social History I have reviewed the patient's Social History: Yes - Tobacco History Second Hand Smoke Exposure: No Smoking Status: Never smoker - Alcohol History How Often Do You Have a Drink Containing Alcohol: 4 or more times a week - Substance Use History Substance History: Unable to Obtain - Immunization History Tetanus Immunization: Unsure Hx Influenza Vaccine This Season: Yes Medications and Allergies Active Medications: Active Medications Acetaminophen (Tylenol) 650 mg PO Q4H PRN PRN Reason: Pain 1-5 or Temp >101F Last Admin: 02/02/18 21:31 Dose: 650 mg Al Hydrox/Mg Hydrox/Simethicone (Mag-Al Plus Susp Liq) 30 ml PO Q6H PRN PRN Reason: DYSPEPSIA Al Hydroxide/Mg Hydroxide (Milk Of Magnesia Liq) 30 ml PO Q12H PRN PRN Reason: Mild Constipation Last Admin: 01/25/18 21:26 Dose: 30 ml Atorvastatin Calcium (Lipitor) 40 mg PO DAILY [facility] Last Admin: 02/05/18 08:32 Dose: 40 mg Carbamazepine (Tegretol Chewable) 250 mg PO Q12H [facility] Last Admin: 02/05/18 08:31 Dose: 250 mg Clindamycin HCl (Cleocin) 300 mg PO Q6HR [facility] Last Admin: 02/05/18 13:21 Dose: 300 mg Dextrose (D50w Vial) 50 ml IV.PUSH UNSCH PRN PRN Reason: PER HYPOGLYCEMIA PROTOCOL Glucagon (Glucagon Inj) 1 mg OTHER PRN PRN PRN Reason: for Hypoglycemia Protocol Levothyroxine Sodium (Synthroid) 75 mcg PO DAILY@0600 [facility] Last Admin: 02/05/18 05:26 Dose: 75 mcg Lidocaine HCl (Lidoderm 5% Patch.12 Hr) 1 patch T-DERMAL DAILY [facility] Last Admin: 02/05/18 08:39 Dose: 1 patch Metformin HCl (Glucophage) 500 mg PO BIDPC [facility] Last Admin: 02/05/18 08:33 Dose: 500 mg Metoclopramide HCl (Reglan) 5 mg PO QID [facility] Last Admin: 02/05/18 13:21 Dose: 5 mg Miscellaneous (Pill Splitter) 1 each OTHER UNSCH PRN PRN Reason: SEE LABEL COMMENTS Miscellaneous (Pill Splitter) 1 each OTHER UNSCH PRN PRN Reason: PILL SPLITTER Multivitamins (Theragran) 1 tab PO DAILY [facility] Last Admin: 02/05/18 08:34 Dose: 1 tab Olanzapine (Zyprexa) 15 mg PO BID [facility] Last Admin: 02/05/18 08:32 Dose: 15 mg Padimate O (Chapstick) 1 applicatio TOPICAL UNSCH PRN PRN Reason: Dry lips Last Admin: 01/17/18 14:30 Dose: 1 applicatio Pantoprazole Sodium (Protonix) 20 mg PO DAILY [facility] Last Admin: 02/05/18 08:33 Dose: 20 mg Patch Removal (Remove Old Patch) 1 each T-DERMAL HS [facility] Last Admin: 02/04/18 20:48 Dose: Not Given Polyethylene Glycol (Miralax) 17 gm PO DAILY [facility] Last Admin: 02/05/18 08:39 Dose: 17 gm Rivaroxaban (Xarelto) 10 mg PO DAILY [facility] Last Admin: 02/05/18 08:34 Dose: 10 mg Senna/Docusate Sodium (Sarahi-Colace) 1 tab PO DAILY [facility] Last Admin: 02/05/18 08:33 Dose: 1 tab Sodium Chloride (Ns Flush) 2 ml IV.FLUSH BID [facility] Last Admin: 02/05/18 08:39 Dose: Not Given Sodium Chloride (Ns Flush) 2 ml IV.FLUSH PRN PRN PRN Reason: FLUSH AFTER USING IV ACCESS Sodium Chloride (Sodium Chloride) 1 gm PO DAILY [facility] Last Admin: 02/05/18 08:33 Dose: 1 gm Trazodone HCl (Desyrel) 100 mg PO HS [facility] Last Admin: 02/04/18 20:28 Dose: 100 mg Allergies Allergy/AdvReac Type Severity Reaction Status Date / Time divalproex sodium Allergy Severe unknown Verified 01/19/18 17:05 haloperidol [From Haldol] Allergy Unknown UNKNOWN Verified 01/19/18 17:05 lamotrigine Allergy Unknown unknown Verified 01/19/18 17:05 ziprasidone Allergy Unknown unknown Verified 01/19/18 17:05 quetiapine AdvReac Severe Hallucinati Verified 01/19/18 17:05 ons TAPE Allergy Unknown Rash Uncoded 01/14/18 12:58 Home Medications Medication Instructions Recorded Confirmed Type atorvastatin 40 mg PO DAILY 01/14/18 01/14/18 History benztropine 1 mg PO DAILY 01/14/18 01/14/18 History brexpiprazole [Rexulti] 3 mg PO DAILY 01/14/18 01/14/18 History levothyroxine 75 mcg PO DAILY 01/14/18 01/14/18 History metformin 1,000 mg PO BID 01/14/18 01/14/18 History metoclopramide HCl 5 mg PO QID 01/14/18 01/14/18 History multivitamin 1 cap PO QAM 01/14/18 01/14/18 History omeprazole 20 mg PO DAILY 01/14/18 01/14/18 History rivaroxaban [Xarelto] 10 mg PO DAILY 01/14/18 01/14/18 History Physical Exam Vital signs: Vital Signs 02/04/18 18:19 02/05/18 00:29 02/05/18 01:42 Temperature 99.0 F 98.2 F 98.2 F Pulse Rate 91 H 95 H 88 Respiratory Rate 16 16 16 Blood Pressure 143/98 H 128/71 128/71 Pulse Oximetry 97 95 95 02/05/18 02:30 02/05/18 06:17 02/05/18 10:01 Temperature 97.8 F 97.9 F 97.9 F Pulse Rate 72 75 82 Respiratory Rate 16 16 16 Blood Pressure 139/71 140/67 138/61 Pulse Oximetry 99 99 98 02/05/18 18:06 Temperature Pulse Rate 77 Respiratory Rate 16 Blood Pressure 135/69 Pulse Oximetry Intake & Output 02/04/18 02/05/18 02/05/18 18:59 06:59 18:59 Weight 84.5 kg Other: Date of Last Bowel Movement 01/30/18 Narrative: Physical examination was performed in the presence of a female nurse leather softener. General physical appearance: Ms. Evans is a middle-aged lady, she is tall moderate build, she appears to have a disheveled appearance. She is in no acute distress. She yawns frequently during this interview. HEENT: Head atraumatic was found, conjunctivae mildly pale, sclerae anicteric, EOMI, PERRLA, oral examination: No pharyngeal erythema. Neck examination: No palpable cervical supraclavicular adenopathy. Respiratory exam: Good air movement bilaterally on posterior examination. No added breath sounds, rhonchi wheezes or crepitus. Cardiovascular: Regular rate and rhythm, S1-S2 no obvious murmurs rubs gallops. Abdominal examination: Protuberant belly, soft, nontender, nondistended, no palpable organ enlargement. Lower extremities: Trace pretibial edema involving the right lower extremity. No left lower extremity pitting edema. She reports some tenderness of the right calf on palpation. CRUCIBLE FURNACE TENDER: No focal sensorimotor deficits. Skin examination: Nonfocal. Psychiatric: Difficult to assess for me however the patient was clearly having a difficult time focusing. She answered questions in a round about way. She frequently made kissing sounds with her lips especially when reading other people, especially males. Assessment and Plan - Plan Ms. Evans is a 52-year-old lady whom I have been asked to see for further workup and management of a non-occlusive/chronic appearing right lower extremity deep venous thrombosis. This appears to be chronic because of its nonocclusive nature. She has symptoms of leg swelling and calf pain especially if she walks. Per the electronic health record, she had been on intermediate dose anticoagulation at the time of admission with Xarelto 10 mg once daily. She has no symptoms of difficulty breathing, pleuritic chest pain, cough or hemoptysis suggestive of pulmonary emboli. Recommendations: 1. Right lower extremity deep venous thrombosis: This appears to be a chronic issue given the configuration of the deep venous thrombosis and the minimal associated edema and tenderness on clinical exam of the right lower extremity. I would advise intensifying anticoagulation from 10 mg daily to 20 mg daily which will be the standard therapeutic dose for Xarelto. I would like to monitor the patient closely while she is on treatment to assess for overt bleeding. 2. Normocytic anemia: This appears to be a chronic issue. I will obtain serum iron studies and a basic anemia workup. Hematology will follow along with you.
[2018-02-05 20:07] LABS: % Iron Saturation 11.7 % (20-50)
[2018-02-05 20:11] LABS: Creatine Kinase 136 U/L (26-192)
[2018-02-05 20:23] LABS: Creatine Kinase MB 3.9 ng/mL (0.5-3.6)
[2018-02-05 20:32] LABS: Folate 15.4 ng/mL (3.1-17.5)
[2018-02-05] MEDS: traZODone 100 MG Tablet PO SCH (21:24)
[2018-02-06] MEDS: Acetaminophen 325 MG Tablet PO PRN ×2 (03:06→12:30)
[2018-02-06] MEDS: Levothyroxine 75 MCG Tablet PO SCH (05:43)
[2018-02-06] MEDS: Senna/Docusate Sodium 8.6/50 MG Tablet PO SCH (09:14)
[2018-02-06] MEDS: carBAMazepine 100 MG Chewable Tablets PO SCH ×2 (09:14→21:15)
[2018-02-06] MEDS: Polyethylene Glycol 3350 17 GM Packet PO SCH (09:14)
[2018-02-06] MEDS: OLANZapine 15 MG Tablet PO SCH ×2 (09:14→21:13)
[2018-02-06] MEDS: Pantoprazole Sodium 20 MG DR Tablet PO SCH ×2 (09:14→22:02)
[2018-02-06] MEDS: Metoclopramide 10 MG Tablet PO SCH ×4 (09:14→21:13)
[2018-02-06] MEDS: Sodium Chloride 0.9% 2 ML Flush BID IV.FLUSH SCH ×2 (09:16→21:57)
[2018-02-06] MEDS: Enoxaparin Inj 80 MG/0.8 ML Syringe SQ SCH ×2 (09:16→21:15)
[2018-02-06] MEDS: Sodium Chloride 1 GM Tablet PO SCH (09:16)
[2018-02-06] MEDS: Ferrous Sulfate 325 MG Tablet PO SCH ×2 (09:16→21:15)
[2018-02-06] MEDS: Lidocaine 5% Patch T-DERMAL SCH (09:16)
[2018-02-06] MEDS: Aluminum/Magnesium/Simethacone Susp 30 ML UDC PO PRN (12:31)
--- NOTE | 2018-02-06 14:49 | P.PN ---
Subjective Interval history: Follow-up visit for chest pain, leg edema and possible lower extremity cellulitis. Spoke with nurse who reports no acute events overnight or this morning, patient with no complaints. Patient is seen and examined in her room resting in bed, appears to be in no acute distress. Continues to have some epigastric pain on and off but denies any SOB, dizziness, or palpitations. She reports that the rash on her leg is better but he swelling still persist. Physical Exam Vital signs: Vital Signs 02/05/18 18:06 02/06/18 04:55 Temperature 98.4 F Pulse Rate 77 72 Respiratory Rate 16 18 Blood Pressure 135/69 124/58 L Pulse Oximetry 95 Intake & Output 02/05/18 02/06/18 02/06/18 18:59 06:59 18:59 Intake Total 480 / 480 Balance 480 / 480 Intake: Oral 480 / 480 Other: Date of Last Bowel Movement 01/30/18 Narrative: GENERAL: Well-developed, well-nourished, hyperactive, female in no apparent distress SKIN: Warm and dry. Bilateral leg edema noted R>L + warmth to R leg. Erythema along right medial aspect of leg resolved. No visible pustules, drainage or open wounds. HEAD: Atraumatic. Normocephalic. EYES: Pupils equal and round. No scleral icterus. No injection or drainage. ENT: No nasal bleeding or discharge. Mucous membranes pink and moist. NECK: Trachea midline. CARDIOVASCULAR: Regular rate and rhythm. RESPIRATORY: No accessory muscle use. Clear to auscultation. Breath sounds equal bilaterally. GASTROINTESTINAL: Abdomen soft, rounded, tenderness to epigastric area. Normoactive bowel sounds. MUSCULOSKELETAL: Extremities without clubbing, cyanosis, or edema. No obvious deformities. Ambulating without difficulties. NEUROLOGICAL: Awake and alert. No obvious cranial nerve deficits. Motor grossly within normal limits. Normal speech. PSYCHIATRIC: Calm and cooperative. Results - Labs CBC & Chem 7: 02/05/18 11:55 02/03/18 15:45 Laboratory Results - last 24 hr 02/05/18 02/05/18 19:28 19:28 Iron 46 L TIBC 392 % Saturation 11.7 L Ferritin 22 Total Creatine Kinase 136 CK-MB (CK-2) 3.9 H Troponin I Less than 0.02 L Vitamin B12 313 Folate 15.4 Assessment and Plan - Assessment (1) Abdominal pain Code(s): R10.9 - Unspecified abdominal pain (2) Bipolar affective, manic, severe w/ psych Code(s): F31.2 - Bipolar disorder, current episode manic severe with psychotic features Status: Acute (3) Diabetes type 2, controlled Code(s): E11.9 - Type 2 diabetes mellitus without complications Status: Acute (4) Hypothyroidism Code(s): E03.9 - Hypothyroidism, unspecified Status: Acute - Plan 52-year-old female with past medical history significant for DM2, hyponatremia, chronic constipation, on Xarelto for possible DVT versus ischemic colitis, bipolar DO admitted on 01/16 due to hyponatremia and acute manic episode. [facility] reconsulted for evaluation of lower extremity edema as well as chest pain. Lower extremity edema, possible cellulitis -Patient on Xarelto for reported DVT or ischemic colitis, patient is poor historian. [place] [facility] [place] or ischemic colitis. Patient reports DVT Dx [facility] about 4 weeks ago. -Edema noted R>L along with erythema and warmth of lower extremity. Patient has been afebrile, mild leukopenia noted on CBC. - LE US with noted nonocclusive thrombus within right proximal and distal femoral vein and profundus vein. -Hematology consulted, greatly appreciate assistance. Noted significant interactions with patient's psychotropics as well as Xarelto. Patient placed on therapeutic dose of Lovenox until possible alternative psychotropics were established. -Erythema along right lower extremity resolved, discontinue clindamycin. -Encourage elevation. Atypical chest pain Epigastric discomfort -Patient reports similar symptoms with nausea and vomiting previously. -Patient hemodynamically stable -EKG reviewed, normal sinus rhythm with no acute changes noted compared to prior EKG -Troponin negative, CKMB mildly elevated at 5.1 likely secondary to patient's pacing around the halls, repeat enzymes negative, repeat EKG with normal sinus rhythm. -Increase Protonix to twice daily Iron deficiency microcytic anemia -Hematology has started patient on iron supplementation -Check stool for occult blood DVT prophylaxissubcu Lovenox Discussed Condition With: Discussed with patient and RN
--- NOTE | 2018-02-06 16:07 | P.PNPSY ---
Subjective Chief Complaint: Bipolar I Disorder - current Manic Episode Remarks: Patient seen for follow-up, chart reviewed. Discussion with nursing staff reported that patient continues to have pressured speech and tangentiality but less intrusive with occasional rambling. Patient was found ambulating on the unit noted B, cooperative. Patient state her mood has been "happy" reports sleeping well with no difficulty with appetite denying any perceptional disturbances. Patient during interview having occasional inappropriate sexual gestures such as blowing kisses at end of interview but noted with less pressured speech and although continues to have tangentiality is more redirectable during interview. Patient noted to be less intrusive with other patients on the unit. Review of Systems All other systems reviewed negative except as stated in HPI Mental Status Examination Appearance: Appropriate Consciousness: Alert, Highly distractible (Lessening) Orientation: Person, Place, Situation Motor Activity: Normal gait Speech: Rapid Language: Adequate Fund of Knowledge: Adequate Attention and Concentration: Easily distracted Memory: Impaired (cannot recall who the previous president was and states "[place] or [place]eb[place]", did not recall 12/16 events until assisted), Immediate ( intact), Recent (intact) Mood: Manic (Lessening) Affect: Appropriate Thought Process & Associations: Intact, Tangential (Lessening) Thought Content: Ideas of reference (states that the TV talks to everyone who can hear it except for when it is on the [employer] channel) Hallucination Type: None Delusion Type: Paranoid (Lessening), Other Suicidal Ideation: No Suicidal Plan: No Suicidal Intention: No Homicidal Ideation: No Homicidal Plan: No Homicidal Intention: No Insight: Fair (Recognizes that she is currently having a Manic Episode and wants medical treatment for her current state) Judgment: Impulsive Assessment and Plan - Assessment (1) Bipolar affective, manic, severe w/ psych Code(s): F31.2 - Bipolar disorder, current episode manic severe with psychotic features Status: Acute (2) Cannabis abuse Code(s): F12.10 - Cannabis abuse, uncomplicated Status: Acute - Plan Plan: Patient continues to have elevated mood and continue to have sexual preoccupation but less intense now. Patient more redirectable less intrusive with decreased pressured speech. We will increase Tegretol to 300 mg p.o. twice daily, we will order repeat CMP to monitor sodium levels. Continue to monitor mood and behavior. Discharge planning a progress. Justification for Continued Inpatient Stay: At risk of further decompensation at lower level care.
[2018-02-06 17:31] LABS: Albumin 4.1 g/dL (3.4-5.0); Anion Gap 8 meq/L (5-15); Aspartate Aminotransferase 20 U/L (15-37); Blood Urea Nitrogen 20 mg/dL (7-18); Calcium 9.4 mg/dL (8.5-10.1); Carbon Dioxide 28.1 meq/L (21.0-32.0); Chloride 97 meq/L (98-107); Glucose,Random 85 mg/dL (74-106); Sodium 133 meq/L (136-145)
[2018-02-06 17:32] LABS: Glomerular Filtration Rate 65 mL/min (>89)
[2018-02-06 17:36] LABS: Alanine Aminotransferase 30 U/L (10-53); Alkaline Phosphatase 99 U/L (45-117); Carbamazepine (Tegretol) 6.3 mcg/mL (4.0-12.0); Total Protein 7.1 g/dL (6.4-8.2)
--- NOTE | 2018-02-06 18:50 | ECG ---
Date Performed: 02/05/2018 Time Performed: 12:15:25 PTAGE: 52 years EKG: Sinus rhythm NORMAL ECG PREVIOUS TRACING : 01/15/2018 20.23 DOCTOR: Abdulaziz Fajardo Interpretating Date/Time 02/06/2018 18:50:30
--- NOTE | 2018-02-06 19:04 | ECG ---
Date Performed: 02/05/2018 Time Performed: 20:11:12 PTAGE: 52 years EKG: Sinus rhythm NORMAL ECG PREVIOUS TRACING : 02/05/2018 12.15 DOCTOR: Abdulaziz Fajardo Interpretating Date/Time 02/06/2018 19:04:08
[2018-02-06] MEDS: traZODone 100 MG Tablet PO SCH (21:15)
[2018-02-07] MEDS: Levothyroxine 75 MCG Tablet PO SCH (06:25)
[2018-02-07] MEDS: Ferrous Sulfate 325 MG Tablet PO SCH ×2 (09:42→21:19)
[2018-02-07] MEDS: Lidocaine 5% Patch T-DERMAL SCH (09:42)
[2018-02-07] MEDS: Polyethylene Glycol 3350 17 GM Packet PO SCH (09:42)
[2018-02-07] MEDS: Sodium Chloride 0.9% 2 ML Flush BID IV.FLUSH SCH ×2 (09:42→21:38)
[2018-02-07] MEDS: Enoxaparin Inj 80 MG/0.8 ML Syringe SQ SCH ×2 (09:42→21:20)
[2018-02-07] MEDS: Senna/Docusate Sodium 8.6/50 MG Tablet PO SCH (09:42)
[2018-02-07] MEDS: OLANZapine 15 MG Tablet PO SCH ×2 (09:43→21:19)
[2018-02-07] MEDS: Sodium Chloride 1 GM Tablet PO SCH (09:43)
[2018-02-07] MEDS: carBAMazepine 100 MG Chewable Tablets PO SCH ×2 (09:43→21:20)
[2018-02-07] MEDS: Metoclopramide 10 MG Tablet PO SCH ×4 (09:43→21:19)
[2018-02-07] MEDS: Pantoprazole Sodium 20 MG DR Tablet PO SCH ×2 (09:43→21:19)
--- NOTE | 2018-02-07 14:09 | P.PN ---
Subjective Interval history: Follow-up visit for right DVT. Patient is seen and examined in her room and appears to be in no acute distress. She denies any shortness of breath, cough, fevers, chest pain, nausea or vomiting. Continues to complain of leg swelling. States that she would like to go home and would like to be "with people my own age". Discussed with patient the noted interactions between her blood thinner and her psychotropic medications, these will need to be adjusted prior to her being discharged per psychiatry. Nurse does not report any acute events overnight or this morning. Physical Exam Vital signs: Vital Signs 02/06/18 17:34 Temperature 98.4 F Pulse Rate 95 H Respiratory Rate 16 Blood Pressure 128/75 Pulse Oximetry 98 Intake & Output 02/06/18 02/07/18 02/07/18 18:59 06:59 18:59 Intake Total 960 / 960 720 / 720 Balance 960 / 960 720 / 720 Intake: Oral 960 / 960 720 / 720 Narrative: GENERAL: Well-developed, well-nourished, hyperactive, female in no apparent distress SKIN: Warm and dry. Bilateral leg edema noted R>L + warmth to R leg. HEAD: Atraumatic. Normocephalic. EYES: Pupils equal and round. No scleral icterus. No injection or drainage. ENT: No nasal bleeding or discharge. Mucous membranes pink and moist. NECK: Trachea midline. CARDIOVASCULAR: Regular rate and rhythm. RESPIRATORY: No accessory muscle use. Clear to auscultation. Breath sounds equal bilaterally. GASTROINTESTINAL: Abdomen soft, rounded, tenderness to epigastric area. Normoactive bowel sounds. MUSCULOSKELETAL: Extremities without clubbing, cyanosis, or edema. No obvious deformities. Ambulating without difficulties. NEUROLOGICAL: Awake and alert. No obvious cranial nerve deficits. Motor grossly within normal limits. Normal speech. PSYCHIATRIC: Calm and cooperative. Results - Labs CBC & Chem 7: 02/05/18 11:55 02/06/18 16:57 Laboratory Results - last 24 hr 02/06/18 16:57 Sodium 133 L Potassium 4.0 Chloride 97 L Carbon Dioxide 28.1 Anion Gap 8 BUN 20 H Creatinine 0.90 Estimated GFR 65 L Random Glucose 85 Calcium 9.4 Total Bilirubin 0.1 L AST 20 ALT 30 Alkaline Phosphatase 99 Total Protein 7.1 Albumin 4.1 Carbamazepine 6.3 Assessment and Plan - Assessment (1) Abdominal pain Code(s): R10.9 - Unspecified abdominal pain (2) Bipolar affective, manic, severe w/ psych Code(s): F31.2 - Bipolar disorder, current episode manic severe with psychotic features Status: Acute (3) Diabetes type 2, controlled Code(s): E11.9 - Type 2 diabetes mellitus without complications Status: Acute (4) Hypothyroidism Code(s): E03.9 - Hypothyroidism, unspecified Status: Acute - Plan 52-year-old female with past medical history significant for DM2, hyponatremia, chronic constipation, on Xarelto for possible DVT versus ischemic colitis, bipolar DO admitted on 01/16 due to hyponatremia and acute manic episode. [facility] reconsulted for evaluation of lower extremity edema as well as chest pain. Lower extremity edema, possible cellulitis -Patient on Xarelto for reported DVT or ischemic colitis, patient is poor historian. No documented imaging in [facility] [place] of DVT or ischemic colitis. Patient reports DVT Dx [facility] about 4 weeks ago. - LE US with noted nonocclusive thrombus within right proximal and distal femoral vein and profundus vein. -Hematology consulted, greatly appreciate assistance. Noted significant interactions with patient's psychotropics as well as Xarelto. Patient placed on therapeutic dose of Lovenox until possible alternative psychotropics are established. -Encourage elevation. Atypical chest pain Epigastric discomfort -Patient reports similar symptoms with nausea and vomiting previously. -EKG reviewed, normal sinus rhythm with no acute changes noted compared to prior EKG -Troponin negative, CKMB mildly elevated at 5.1 likely secondary to patient's pacing around the halls, repeat enzymes negative, repeat EKG with normal sinus rhythm. -Continue Protonix twice daily. -No complaints of pain or discomfort today. Iron deficiency microcytic anemia -Hematology has started patient on iron supplementation -Stool for occult blood yet to be collected. DVT prophylaxissubcu Lovenox Discussed Condition With: Patient and RN
--- NOTE | 2018-02-07 14:16 | P.PNPSY ---
Subjective Chief Complaint: Bipolar I Disorder - current Manic Episode Remarks: Reviewed electronic medical records and discussed case with staff. Follow-up was conducted in the day room with FRED Harrison present. Her nurse reports that she was irritable this morning and suspicious about her medications. Patient states she has been sleeping very well but she has been "eating like a horse". Speech still seems a bit rapid. She reports that her legs feeling better. States that she cries sometimes her mood still somewhat up and down. When asked about her irritable. This morning she states "something pissed me off". She believed it was being moved to the different unit. Overall there seems to be some minor provement but she still seems hypomanic. Mental Status Examination Appearance: Appropriate Consciousness: Alert, Highly distractible (Lessening) Orientation: Person, Place, Situation Motor Activity: Normal gait Speech: Rapid Language: Adequate Fund of Knowledge: Adequate Attention and Concentration: Easily distracted Memory: Impaired (cannot recall who the previous president was and states "[place] or Esteban", did not recall 12/16 events until assisted), Immediate ( intact), Recent (intact) Mood: Manic (Lessening) Affect: Appropriate Thought Process & Associations: Intact, Tangential (Lessening) Thought Content: Ideas of reference (states that the TV talks to everyone who can hear it except for when it is on the [employer] channel) Hallucination Type: None Delusion Type: Paranoid (Lessening), Other Suicidal Ideation: No Suicidal Plan: No Suicidal Intention: No Homicidal Ideation: No Homicidal Plan: No Homicidal Intention: No Insight: Fair (Recognizes that she is currently having a Manic Episode and wants medical treatment for her current state) Judgment: Impulsive Assessment and Plan - Assessment (1) Bipolar affective, manic, severe w/ psych Code(s): F31.2 - Bipolar disorder, current episode manic severe with psychotic features Status: Acute - Plan Plan: Patient will be reevaluated by the attending psychiatrist. Continue with current treatment plan. Justification for Continued Inpatient Stay: Moving this patient to a less restrictive environment would likely result in decompensation.
[2018-02-07] MEDS: traZODone 100 MG Tablet PO SCH (21:19)
[2018-02-08] MEDS: Levothyroxine 75 MCG Tablet PO SCH (05:53)
[2018-02-08] MEDS: Enoxaparin Inj 80 MG/0.8 ML Syringe SQ SCH ×2 (09:22→20:56)
[2018-02-08] MEDS: Senna/Docusate Sodium 8.6/50 MG Tablet PO SCH (09:23)
[2018-02-08] MEDS: Metoclopramide 10 MG Tablet PO SCH ×4 (09:23→21:13)
[2018-02-08] MEDS: Ferrous Sulfate 325 MG Tablet PO SCH ×2 (09:24→20:56)
[2018-02-08] MEDS: carBAMazepine 100 MG Chewable Tablets PO SCH ×2 (09:25→20:55)
[2018-02-08] MEDS: Pantoprazole Sodium 20 MG DR Tablet PO SCH ×2 (09:27→20:55)
[2018-02-08] MEDS: Sodium Chloride 1 GM Tablet PO SCH (09:27)
[2018-02-08] MEDS: OLANZapine 15 MG Tablet PO SCH ×2 (09:28→20:55)
[2018-02-08] MEDS: Lidocaine 5% Patch T-DERMAL SCH (09:30)
[2018-02-08] MEDS: Polyethylene Glycol 3350 17 GM Packet PO SCH (09:30)
--- NOTE | 2018-02-08 09:40 | P.PNPSY ---
Subjective Chief Complaint: Bipolar I Disorder - current Manic Episode Remarks: Reviewed electronic medical records and discussed case with staff. Follow-up was conducted in the day room with RN present. Patient is intrusive and upsetting all the other patients. She is crying and manic. She is not sleeping. She is currently under treatment for a right leg DVT and is on Lovenox. She is currently on Tegretol 300 mg bid, Zyprexa 15 mg bid and Trazodone 100 mg. I spoke with her son Francheska Evans and he shared that she has responded to Abilify in the past when she is in this state. Will discontinue the Zyprexa and start Abilify, this will give psychiatrist the option to consider a termite helper injectable is patient responds to the Abilify. Review of Systems All other systems reviewed negative except as stated in HPI Mental Status Examination Appearance: Appropriate Consciousness: Alert, Highly distractible (Lessening) Orientation: Person, Place, Situation Motor Activity: Normal gait Speech: Rapid Language: Adequate Fund of Knowledge: Adequate Attention and Concentration: Inadequate, Other (intrusive, crying, interferring with other patients ) Memory: Impaired (cannot recall who the previous president was and states "Roslyn or Esteban", did not recall 12/16 events until assisted), Immediate ( intact), Recent (intact) Mood: Manic (very manic today ) Affect: Appropriate Thought Process & Associations: Intact, Tangential (Lessening) Thought Content: Ideas of reference (states that the TV talks to everyone who can hear it except for when it is on the [employer] channel) Hallucination Type: None Delusion Type: Paranoid (Lessening), Other Suicidal Ideation: No Suicidal Plan: No Suicidal Intention: No Homicidal Ideation: No Homicidal Plan: No Homicidal Intention: No Insight: Fair (Recognizes that she is currently having a Manic Episode and wants medical treatment for her current state) Judgment: Impulsive Assessment and Plan - Assessment (1) Bipolar affective, manic, severe w/ psych Code(s): F31.2 - Bipolar disorder, current episode manic severe with psychotic features Status: Acute - Plan Plan: Patient is very manic today. She is crying uncontrollably, intrusive, difficult to redirect. I spoke with her son Francheska Evans and he stated that in the past she has responded to Abilify. Will transition medication to Abilify with the option of a termite helper injectable if she has a response to this medication. Justification for Continued Inpatient Stay: Moving patient to a less restrictive environment may result in her decompensation.
[2018-02-08] MEDS: Sodium Chloride 0.9% 2 ML Flush BID IV.FLUSH SCH ×2 (12:40→21:12)
--- NOTE | 2018-02-08 14:44 | P.PN ---
Subjective Interval history: Follow-up visit for DVT. Patient is seen and examined in her room, nurse reports patient continues to be quite psychotic. 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 Discussed elevating her leg when possible. Patient with ongoing leg pain complaints and edema. Denies any shortness of breath, cough, fevers, chills, no terminal pain or discomfort. Patient is moving her bowels, no other complaints. Physical Exam Vital signs: Vital Signs 02/07/18 17:50 02/08/18 06:00 Temperature 98.6 F 98.9 F Pulse Rate 80 79 Respiratory Rate 18 18 Blood Pressure 133/70 138/65 Pulse Oximetry 96 95 Intake & Output 02/07/18 02/08/18 02/08/18 19:59 06:59 18:59 Intake Total Balance Intake: Oral Oral Supplement Other: # Voids Narrative: GENERAL: Well-developed, well-nourished, hyperactive, female in no apparent distress SKIN: Warm and dry. Bilateral leg edema noted R>L. HEAD: Atraumatic. Normocephalic. EYES: Pupils equal and round. No scleral icterus. No injection or drainage. ENT: No nasal bleeding or discharge. Mucous membranes pink and moist. NECK: Trachea midline. CARDIOVASCULAR: Regular rate and rhythm. RESPIRATORY: No accessory muscle use. Clear to auscultation. Breath sounds equal bilaterally. GASTROINTESTINAL: Abdomen soft, rounded. Normoactive bowel sounds. MUSCULOSKELETAL: Extremities without clubbing, cyanosis, or edema. No obvious deformities. Ambulating without difficulties. NEUROLOGICAL: Awake and alert. No obvious cranial nerve deficits. Motor grossly within normal limits. Normal speech. PSYCHIATRIC: Calm and cooperative. Results - Labs CBC & Chem 7: 02/05/18 11:55 02/06/18 16:57 Assessment and Plan - Assessment (1) Abdominal pain Code(s): R10.9 - Unspecified abdominal pain (2) Bipolar affective, manic, severe w/ psych Code(s): F31.2 - Bipolar disorder, current episode manic severe with psychotic features Status: Acute (3) Diabetes type 2, controlled Code(s): E11.9 - Type 2 diabetes mellitus without complications Status: Acute (4) Hypothyroidism Code(s): E03.9 - Hypothyroidism, unspecified Status: Acute - Plan 52-year-old female with past medical history significant for DM2, hyponatremia, chronic constipation, on Xarelto for possible DVT versus ischemic colitis, bipolar DO admitted on 01/16 due to hyponatremia and acute manic episode. [facility] reconsulted for evaluation of lower extremity edema as well as chest pain. Lower extremity edema, possible cellulitis -Patient on Xarelto for reported DVT or ischemic colitis, patient is poor historian. No documented imaging in [facility] EMR of DVT or ischemic colitis. Patient reports DVT Dx [facility] about 4 weeks ago. - LE US with noted nonocclusive thrombus within right proximal and distal femoral vein and profundus vein. -Hematology consulted, greatly appreciate assistance. Noted significant interactions with patient's psychotropics as well as Xarelto. Currently on therapeutic dose of Lovenox until possible alternative psychotropics are established. -Encourage elevation. Atypical chest pain Epigastric discomfort -Patient reports similar symptoms with nausea and vomiting previously. -EKG reviewed, normal sinus rhythm with no acute changes noted compared to prior EKG -Troponin negative, CKMB mildly elevated at 5.1 likely secondary to patient's pacing around the halls, repeat enzymes negative, repeat EKG with normal sinus rhythm. -Continue Protonix twice daily. -No complaints of pain or discomfort today. Iron deficiency microcytic anemia -Hematology has started patient on iron supplementation -Stool for occult blood yet to be collected. DVT prophylaxissubcu Lovenox Discussed Condition With: Patient and RN
[2018-02-08] MEDS: ARIPiprazole 10 MG Tablet PO SCH (20:55)
[2018-02-08] MEDS: traZODone 100 MG Tablet PO SCH (20:56)
[2018-02-08] MEDS: Acetaminophen 325 MG Tablet PO PRN (21:51)
[2018-02-09] MEDS: Levothyroxine 75 MCG Tablet PO SCH (05:49)
[2018-02-09 06:52] LABS: Hematocrit 30.1 % (35.0-46.0); Mean Corpuscular HGB Conc 33.3 % (32.0-36.0); Mean Corpuscular Hemoglobin 28.6 pg (27.0-34.0); Mean Corpuscular Volume 85.7 fL (80.0-100.0); Mean Platelet Volume 8.3 fL (7.0-11.0); Platelet Count 350 th/mm3 (150-450); Red Blood Count 3.51 mil/mm3 (4.00-5.30); Red Cell Distribution Width 14.4 % (11.6-17.2); White Blood Count 4.9 th/mm3 (4.0-11.0)
[2018-02-09] MEDS: Sodium Chloride 1 GM Tablet PO SCH (08:46)
[2018-02-09] MEDS: Metoclopramide 10 MG Tablet PO SCH ×4 (08:46→23:11)
[2018-02-09] MEDS: Enoxaparin Inj 80 MG/0.8 ML Syringe SQ SCH ×2 (08:47→23:13)
[2018-02-09] MEDS: Ferrous Sulfate 325 MG Tablet PO SCH ×2 (08:47→23:13)
[2018-02-09] MEDS: Senna/Docusate Sodium 8.6/50 MG Tablet PO SCH (08:47)
[2018-02-09] MEDS: Pantoprazole Sodium 20 MG DR Tablet PO SCH ×2 (08:48→23:12)
[2018-02-09] MEDS: carBAMazepine 100 MG Chewable Tablets PO SCH ×2 (08:48→23:12)
[2018-02-09] MEDS: Sodium Chloride 0.9% 2 ML Flush BID IV.FLUSH SCH ×2 (08:49→23:15)
[2018-02-09] MEDS: Lidocaine 5% Patch T-DERMAL SCH (08:50)
[2018-02-09] MEDS: Polyethylene Glycol 3350 17 GM Packet PO SCH (08:53)
--- NOTE | 2018-02-09 09:05 | P.PNONC ---
Subjective Interval history: Patient seen in inpatient psychiatric unit, day room. She is in no acute distress. Eating breakfast. Denies shortness of breath, complains of right lower extremity pain and swelling. Difficult historian due to shelley and rapid flight of ideas. Objective Vital Signs/Intake & Output: Vital Signs 02/08/18 18:03 02/08/18 22:50 02/09/18 05:25 Temperature 97.6 F 98.8 F Pulse Rate 80 85 Respiratory Rate 18 16 16 Blood Pressure 129/72 119/71 Pulse Oximetry 98 95 Intake & Output 02/08/18 02/09/18 02/09/18 18:59 06:59 18:59 Intake Total 1020 / 1020 480 / 480 Balance 1020 / 1020 480 / 480 Weight 83.4 kg Intake: Oral 1020 / 1020 480 / 480 Other: # Voids 2 2 Date of Last Bowel Movement 02/07/18 Result Diagrams: 02/09/18 05:29 02/06/18 16:57 Laboratory Results: Laboratory Results - last 24 hr 02/09/18 05:29 WBC 4.9 RBC 3.51 L Hgb 10.0 L Hct 30.1 L MCV 85.7 MCH 28.6 MCHC 33.3 RDW 14.4 Plt Count 350 MPV 8.3 Medications: Active Medications Generic Name Dose Route Start Last Admin Trade Name Freq PRN Reason Stop Dose Admin Acetaminophen 650 mg 01/16/18 20:17 02/08/18 21:51 Tylenol PO 650 mg Q4H PRN Administration Pain 1-5 or Temp >101F Al Hydrox/Mg Hydrox/Simethicone 30 ml 01/16/18 20:17 02/06/18 12:31 Mag-Al Plus Susp Liq PO 30 ml Q6H PRN Administration DYSPEPSIA Al Hydroxide/Mg Hydroxide 30 ml 01/16/18 20:17 01/25/18 21:26 Milk Of Magnesia Liq PO 30 ml Q12H PRN Administration Mild Constipation Aripiprazole 10 mg 02/08/18 21:00 02/08/18 20:55 Abilify PO 10 mg HS HAMZAH Administration Atorvastatin Calcium 40 mg 01/17/18 11:30 02/08/18 09:24 Lipitor PO 40 mg DAILY HAMZAH Administration Carbamazepine 300 mg 02/06/18 21:00 02/08/18 20:55 Tegretol Chewable PO 300 mg Q12H HAMZAH Administration Enoxaparin Sodium 80 mg 02/06/18 09:00 02/08/18 20:56 Lovenox Inj SQ 80 mg Q12HR HAMZAH Administration Ferrous Sulfate 325 mg 02/06/18 09:00 02/08/18 20:56 Ferosul PO 325 mg BID HAMZAH Administration Levothyroxine Sodium 75 mcg 01/17/18 11:30 02/09/18 05:49 Synthroid PO 75 mcg DAILY@0600 HAMZAH Administration Lidocaine HCl 1 patch 01/31/18 16:15 02/08/18 09:30 Lidoderm 5% Patch.12 Hr T-DERMAL 1 patch DAILY HAMZAH Administration Metformin HCl 500 mg 01/17/18 11:30 02/08/18 17:41 Glucophage PO 500 mg BIDPC HAMZAH Administration Metoclopramide HCl 5 mg 01/17/18 13:00 02/08/18 21:13 Reglan PO 5 mg QID HAMZAH Administration Multivitamins 1 tab 01/17/18 11:45 02/08/18 09:27 Theragran PO 1 tab DAILY HAMZAH Administration Padimate O 1 applicatio 01/17/18 15:00 01/17/18 14:30 Chapstick TOPICAL 1 applicatio UNSCH PRN Administration Dry lips Pantoprazole Sodium 20 mg 02/06/18 21:00 02/08/18 20:55 Protonix PO 20 mg BID HAMZAH Administration Patch Removal 1 each 01/31/18 21:00 02/08/18 21:13 Remove Old Patch T-DERMAL 1 each HS HAMZAH Administration Polyethylene Glycol 17 gm 02/03/18 14:30 02/08/18 09:30 Miralax PO 17 gm DAILY HAMZAH Administration Senna/Docusate Sodium 1 tab 01/20/18 09:00 02/08/18 09:23 Sarahi-Colace PO 1 tab DAILY HAMZAH Administration Sodium Chloride 2 ml 01/17/18 21:00 02/08/18 21:12 Ns Flush IV.FLUSH Not Given BID HAMZAH Sodium Chloride 1 gm 01/18/18 09:00 02/08/18 09:27 Sodium Chloride PO 1 gm DAILY HAMZAH Administration Trazodone HCl 100 mg 01/30/18 21:00 02/08/18 20:56 Desyrel PO 100 mg HS HAMZAH Administration Objective Remarks: GENERAL: Well-nourished, well-developed middle-aged female patient, in no acute distress. SKIN: Warm and dry. HEAD: Normocephalic. EYES: No scleral icterus. No injection or drainage. NECK: Supple, trachea midline. CARDIOVASCULAR: Regular rate and rhythm without murmurs. RESPIRATORY: Posterior breath sounds clear, equal bilaterally. No accessory muscle use. GASTROINTESTINAL: Abdomen soft, non-tender, nondistended. EXTREMITIES: No cyanosis. RLE > LLE, mild erythema. MUSCULOSKELETAL: Adequate muscle tone. NEUROLOGICAL: No obvious focal deficit. Awake, alert, and oriented x3. PSYCHIATRIC: Difficulty focusing, patient rapidly changes the subject when asked a question. Assessment/Plan - Plan Ms. Evans is a 52-year-old lady whom I have been asked to see for further workup and management of a non-occlusive/chronic appearing right lower extremity deep venous thrombosis. This appears to be chronic because of its nonocclusive nature. She has symptoms of leg swelling and calf pain especially if she walks. Per the electronic health record, she had been on intermediate dose anticoagulation at the time of admission with Xarelto 10 mg once daily. She has no symptoms of difficulty breathing, pleuritic chest pain, cough or hemoptysis suggestive of pulmonary emboli. Plan: 1. Continue Lovenox. 2. Poor historian, however patient reports starting her menstrual cycle after stopping for many years. Her hemoglobin is trending down we will continue to monitor this. Patient may need gynecology consult if she is in fact having her menstrual cycle. Awaiting stool for Hemoccult study. 3. Continue supportive care.
--- NOTE | 2018-02-09 12:55 | P.PN ---
Subjective Interval history: Follow-up visit for DVT. Patient seen and examined in the day room. She reports that the swelling in her right leg is due to the fact that this is fat and that her grandmother had the same issue. She continues to be quite manic. He denies any bleeding although she mentioned bleeding to hem/onc. She states she wants to go home. Physical Exam Vital signs: Vital Signs 02/08/18 18:03 02/08/18 22:50 02/09/18 05:25 Temperature 97.6 F 98.8 F Pulse Rate 80 85 Respiratory Rate 18 16 16 Blood Pressure 129/72 119/71 Pulse Oximetry 98 95 Intake & Output 02/08/18 02/09/18 02/09/18 18:59 06:59 18:59 Intake Total 1020 / 1020 480 / 480 Balance 1020 / 1020 480 / 480 Weight 83.4 kg Intake: Oral 1020 / 1020 480 / 480 Other: # Voids 2 2 Date of Last Bowel Movement 02/07/18 02/07/18 Narrative: GENERAL: Well-developed, well-nourished, hyperactive, female in no apparent distress SKIN: Warm and dry. Bilateral leg edema noted R>L. HEAD: Atraumatic. Normocephalic. EYES: Pupils equal and round. No scleral icterus. No injection or drainage. ENT: No nasal bleeding or discharge. Mucous membranes pink and moist. NECK: Trachea midline. CARDIOVASCULAR: Regular rate and rhythm. RESPIRATORY: No accessory muscle use. Clear to auscultation. Breath sounds equal bilaterally. GASTROINTESTINAL: Abdomen soft, rounded. Normoactive bowel sounds. MUSCULOSKELETAL: Extremities without clubbing or cyanosis. No obvious deformities. Ambulating without difficulties. NEUROLOGICAL: Awake and alert. No obvious cranial nerve deficits. Motor grossly within normal limits. Normal speech. PSYCHIATRIC: Calm and cooperative. Results - Labs CBC & Chem 7: 02/09/18 05:29 02/06/18 16:57 Laboratory Results - last 24 hr 02/09/18 05:29 WBC 4.9 RBC 3.51 L Hgb 10.0 L Hct 30.1 L MCV 85.7 MCH 28.6 MCHC 33.3 RDW 14.4 Plt Count 350 MPV 8.3 Assessment and Plan - Assessment (1) Abdominal pain Code(s): R10.9 - Unspecified abdominal pain (2) Bipolar affective, manic, severe w/ psych Code(s): F31.2 - Bipolar disorder, current episode manic severe with psychotic features Status: Acute (3) Diabetes type 2, controlled Code(s): E11.9 - Type 2 diabetes mellitus without complications Status: Acute (4) Hypothyroidism Code(s): E03.9 - Hypothyroidism, unspecified Status: Acute - Plan 52-year-old female with past medical history significant for DM2, hyponatremia, chronic constipation, on Xarelto for possible DVT versus ischemic colitis, bipolar DO admitted on 01/16 due to hyponatremia and acute manic episode. [facility] reconsulted for evaluation of lower extremity edema as well as chest pain. Lower extremity edema, possible cellulitis -Patient on Xarelto for reported DVT or ischemic colitis, patient is poor historian. No documented imaging in [facility] EMR of DVT or ischemic colitis. Patient reports DVT Dx [facility] about 4 weeks ago. - LE US with noted nonocclusive thrombus within right proximal and distal femoral vein and profundus vein. -Hematology consulted, greatly appreciate assistance. Noted significant interactions with patient's psychotropics as well as Xarelto. Currently on therapeutic dose of Lovenox until possible alternative psychotropics are established. - Discussed with , limitations exist due to patients allergy to medications. Not sure if hematology would consider IVC filter. -Encourage elevation. Iron deficiency microcytic anemia -Hematology has started patient on iron supplementation -Stool for occult blood yet to be collected. Hyponatremia -Currently on Na tab daily - Check BMP today Atypical chest pain Epigastric discomfort -Patient reports similar symptoms with nausea and vomiting previously. -EKG reviewed, normal sinus rhythm with no acute changes noted compared to prior EKG -Troponin negative, CKMB mildly elevated at 5.1 likely secondary to patient's pacing around the halls, repeat enzymes negative, repeat EKG with normal sinus rhythm. -Continue Protonix twice daily. -No complaints of pain resolved. DVT prophylaxissubcu Lovenox Discussed Condition With: Patient and .
--- NOTE | 2018-02-09 13:59 | P.TTN ---
- Patient Problems Problems: 1. Discharge planning 2. Medication compliance 3. Knowledge deficit 4. Lack of coping skills - Progress Toward Goals Provider Present: Dr. Amparo Dodson (February 02, 2018 patient's shelley is softening, Dr. Dodson intends to remove the one-on-one, titrating medications, patient remains for further stabilization. February 04, 2018 patient remains manic, irritable, and needs to remain for further stabilization.) Provider Input: 02/09/18: Pt continues to be manic, hyperverbal, intrusive and needs to remain for further stabilization. Tegrertal being titrated. Collateral from pt's sister is that pt continues to exhibit shelley. 01/28: Adjusting and increasing pt's medications today, pt is homeless, case management is working on placement to [facility], watch water intake due to decrease in sodium Nurse(s) Present: Agnieszka Nurse Input: 01/28: Pt remains manic, hyperverbal, religiously preoccupied, rapid pressured speech, med compliant Psychiatric Counselors Present: Isaac Lentz Jr., [facility] (Counselor spoke with Alice from [facility]. Alice is requesting the patient will return to their facility upon discharge), Steffanie Liz [facility] Psychiatric Therapist Input: 02/09/18: Pt plof was [facility], current plan is for pt to return when stabilized. Pt currrently meets criteria for in- pt status. Group Spec/RT/OT/BARRERA Present: HOLLY Ratliff (Patient attends select groups and is redirectable.), Rasta Archibald OT, HOLLY Harper (February 02, 2018 patient attends select groups and is redirectable) Group Spec/RT/OT/BARRERA Input: 02/09/18: Pt attends select groups, she is intrusive , hyperverbal, needs repeated, nearly constant re-direction. 01/28: Pt attends select groups with 1:1 and constant redirection to remain quiet, focused, seated. Manic, intrusive, hyperverbal, increase in participation noted, pt is able to complete simple tasks Clinical Coordinator: Tasha Mathews [facility] Additional Input: 02/09/18: Pt plof was [facility], current plan is for pt to return when stabilized. Pt currrently meets criteria for in-pt status. - Discharge Plan Other 01/28: Pt discharge planning in progress with placement to [facility] - Documentation Teaching Recipient: Patient
[2018-02-09 16:21] LABS: Calcium 9.1 mg/dL (8.5-10.1); Carbon Dioxide 25.7 meq/L (21.0-32.0); Potassium 4.1 meq/L (3.5-5.1)
--- NOTE | 2018-02-09 16:53 | P.PNPSY ---
Subjective Chief Complaint: Bipolar I Disorder - current Manic Episode Remarks: Patient seen for follow-up, chart reviewed. Discussion with nursing staff reported that patient continues to have pressured speech, tangential, and hyperverbal. Patient was found in day room noted to be occupied with poor games in activities. Patient said her weekend was "awesome" stating that she was "bad" stating that she has been taking out all of the board games from a cabinet. Patient states having spoken to her sister and family prior to her admission but has not spoken to anyone since. She continues report having disturbed sleep continued with racing thoughts and continues to be distracted during interview and tangential. Patient noted to be tearful at times stating that she is aware that she is still manic. Review of Systems All other systems reviewed negative except as stated in HPI Mental Status Examination Appearance: Appropriate Consciousness: Alert, Highly distractible (Lessening) Orientation: Person, Place, Situation Motor Activity: Normal gait Speech: Rapid (Lessening) Language: Adequate Fund of Knowledge: Adequate Attention and Concentration: Easily distracted Memory: Impaired (cannot recall who the previous president was and states "Ruffin or Esteban", did not recall 12/16 events until assisted), Immediate ( intact), Recent (intact) Mood: Manic (Lessening) Affect: Appropriate Thought Process & Associations: Intact, Tangential (Lessening) Thought Content: Ideas of reference (states that the TV talks to everyone who can hear it except for when it is on the [employer] channel) Hallucination Type: None Delusion Type: Paranoid (Lessening), Other Suicidal Ideation: No Suicidal Plan: No Suicidal Intention: No Homicidal Ideation: No Homicidal Plan: No Homicidal Intention: No Insight: Fair (Recognizes that she is currently having a Manic Episode and wants medical treatment for her current state) Judgment: Impulsive Assessment and Plan - Assessment (1) Bipolar affective, manic, severe w/ psych Code(s): F31.2 - Bipolar disorder, current episode manic severe with psychotic features Status: Acute (2) Cannabis abuse Code(s): F12.10 - Cannabis abuse, uncomplicated Status: Acute - Plan Plan: Patient continues with hyperverbal speech, tangentiality, disorganized at times but able to engage with interview. Patient continues with racing thoughts and easily distracted but noted to be less intrusive. We will continue to increase Tegretol to 350 mg p.o. twice daily for mood stabilization, continue rest of medications. Hospitalist input appreciated. Discharge planning a progress. Justification for Continued Inpatient Stay: At risk of further decompensation at lower level care.
[2018-02-09] MEDS: ARIPiprazole 10 MG Tablet PO SCH (23:11)
[2018-02-09] MEDS: traZODone 100 MG Tablet PO SCH (23:13)
[2018-02-10] MEDS: Levothyroxine 75 MCG Tablet PO SCH (06:02)
[2018-02-10] MEDS: Pantoprazole Sodium 20 MG DR Tablet PO SCH ×2 (09:37→21:07)
[2018-02-10] MEDS: Metoclopramide 10 MG Tablet PO SCH ×4 (09:37→21:07)
[2018-02-10] MEDS: carBAMazepine 100 MG Chewable Tablets PO SCH ×2 (09:37→21:10)
[2018-02-10] MEDS: Senna/Docusate Sodium 8.6/50 MG Tablet PO SCH (09:38)
[2018-02-10] MEDS: Sodium Chloride 1 GM Tablet PO SCH (09:38)
[2018-02-10] MEDS: Ferrous Sulfate 325 MG Tablet PO SCH ×2 (09:38→21:09)
[2018-02-10] MEDS: Lidocaine 5% Patch T-DERMAL SCH (09:39)
[2018-02-10] MEDS: Enoxaparin Inj 80 MG/0.8 ML Syringe SQ SCH ×2 (09:39→21:11)
[2018-02-10] MEDS: Polyethylene Glycol 3350 17 GM Packet PO SCH ×2 (09:39→09:45)
[2018-02-10] MEDS: Sodium Chloride 0.9% 2 ML Flush BID IV.FLUSH SCH ×2 (09:39→23:09)
--- NOTE | 2018-02-10 10:37 | P.PN ---
Subjective Interval history: Follow up right lower extremity DVT. Patient seen and examined in room, continued shelley. Complaints of continued lower extremity pain and edema in bilateral extremities, eliz in right side. Eating well without any problems. Denies any chest pain or shortness of breath. Physical Exam Vital signs: Vital Signs 02/09/18 17:42 02/10/18 06:00 Temperature 99.0 F 98.8 F Pulse Rate 99 H 92 H Respiratory Rate 18 16 Blood Pressure 137/78 107/68 Pulse Oximetry 96 95 Intake & Output 02/09/18 02/10/18 02/10/18 18:59 06:59 18:59 Intake Total 1200 / 1200 Balance 1200 / 1200 Intake: Oral 1200 / 1200 Other: # Voids 3 Date of Last Bowel Movement 02/07/18 Narrative: GENERAL: Well-developed, well-nourished, hyperactive, female in no apparent distress SKIN: Warm and dry. Bilateral leg edema noted R>L. HEAD: Atraumatic. Normocephalic. EYES: Pupils equal and round. No scleral icterus. No injection or drainage. ENT: No nasal bleeding or discharge. Mucous membranes pink and moist. NECK: Trachea midline. CARDIOVASCULAR: Regular rate and rhythm. RESPIRATORY: No accessory muscle use. Clear to auscultation. Breath sounds equal bilaterally. GASTROINTESTINAL: Abdomen soft, rounded. Normoactive bowel sounds. MUSCULOSKELETAL: Extremities without clubbing or cyanosis. No obvious deformities. Ambulating without difficulties. NEUROLOGICAL: Awake and alert. No obvious cranial nerve deficits. Motor grossly within normal limits. Normal speech. PSYCHIATRIC: Calm and cooperative. Results - Labs CBC & Chem 7: 02/09/18 05:29 02/09/18 15:06 Laboratory Results - last 24 hr 02/09/18 15:06 Sodium 138 Potassium 4.1 Chloride 102 Carbon Dioxide 25.7 Anion Gap 10 BUN 19 H Creatinine 0.85 Estimated GFR 70 L Random Glucose 123 H Calcium 9.1 Assessment and Plan - Assessment (1) Abdominal pain Code(s): R10.9 - Unspecified abdominal pain (2) Bipolar affective, manic, severe w/ psych Code(s): F31.2 - Bipolar disorder, current episode manic severe with psychotic features Status: Acute (3) Diabetes type 2, controlled Code(s): E11.9 - Type 2 diabetes mellitus without complications Status: Acute (4) Hypothyroidism Code(s): E03.9 - Hypothyroidism, unspecified Status: Acute - Plan 52-year-old female with past medical history significant for DM2, hyponatremia, chronic constipation, on Xarelto for possible DVT versus ischemic colitis, bipolar DO admitted on 01/16 due to hyponatremia and acute manic episode. [facility] reconsulted for evaluation of lower extremity edema as well as chest pain. Lower extremity edema, possible cellulitis Dependant bilateral lower extremity swelling. -Patient on Xarelto for reported DVT or ischemic colitis, patient is poor historian. -No documented imaging in [facility] EMR of DVT or ischemic colitis. -Patient reports DVT Dx [facility] about 4 weeks ago. -LE US with noted nonocclusive thrombus within right proximal and distal femoral vein and profundus vein. -Hematology consulted, greatly appreciate assistance. -Noted significant interactions with patient's psychotropics as well as Xarelto. -Currently on therapeutic dose of Lovenox until possible alternative psychotropics are established. -Discussed with , limitations exist due to patients allergy to medications. Not sure if hematology would consider IVC filter. -Encourage elevation. -Will add dose of Lasix 20 mg PO x 1. Bilateral lower extremities with edema, R> L. No pain to left lower extremity. Iron deficiency microcytic anemia -Hematology has started patient on iron supplementation. -Stool for occult blood yet to be collected. Hyponatremia -Currently on Na tab daily -Na 138 yesterday. -Continue to monitor BMP intermittently. Atypical chest pain. Resolved. Epigastric discomfort. Resolved. -Patient reports similar symptoms with nausea and vomiting previously. -EKG reviewed, normal sinus rhythm with no acute changes noted compared to prior EKG -Troponin negative, CKMB mildly elevated at 5.1 likely secondary to patient's pacing around the halls, repeat enzymes negative, repeat EKG with normal sinus rhythm. -Continue Protonix twice daily. -No complaints of pain, resolved. DVT prophylaxis: Lovenox. Discussed Condition With: Patient and RN.
[2018-02-10] MEDS ORDERED: Furosemide 20 MG Tablet PO ONE (14:00)
--- NOTE | 2018-02-10 16:13 | P.PNPSY ---
Subjective Chief Complaint: Bipolar I Disorder - current Manic Episode Remarks: Patient seen for follow up; chart reviewed. Discussion with nursing staff reported patient continues with hyperverbal speech, refused labs this morning continues to be semi-intrusive but less than before and receive ETO once yesterday with Ativan 2 mg IM. Patient was found ambulating on the unit noted B , cooperative. Patient states she is feeling "great" reports sleeping well though to be tearful at times during interview denying any racing thoughts stating that her thoughts are more slow now. Patient refused labs this morning but was agreeable to have of them later today. Patient noted to be less tangential during interview and more redirectable today. Possibility of patient returning back to her previous assisted living facility was reviewed with patient which she had at this time refuses to return there. Review of Systems All other systems reviewed negative except as stated in HPI Mental Status Examination Appearance: Appropriate Consciousness: Alert, Highly distractible (Lessening) Orientation: Person, Place, Situation Motor Activity: Normal gait Speech: Rapid (Lessening) Language: Adequate Fund of Knowledge: Adequate Attention and Concentration: Easily distracted Memory: Impaired (cannot recall who the previous president was and states "[place] or [place]eb[place]", did not recall /11 events until assisted), Immediate ( intact), Recent (intact) Mood: Manic (Lessening) Affect: Appropriate Thought Process & Associations: Intact, Tangential (Lessening) Thought Content: Ideas of reference (states that the TV talks to everyone who can hear it except for when it is on the [employer] channel) Hallucination Type: None Delusion Type: Paranoid (Lessening), Other Suicidal Ideation: No Suicidal Plan: No Suicidal Intention: No Homicidal Ideation: No Homicidal Plan: No Homicidal Intention: No Insight: Fair (Recognizes that she is currently having a Manic Episode and wants medical treatment for her current state) Judgment: Impulsive Assessment and Plan - Assessment (1) Bipolar affective, manic, severe w/ psych Code(s): F31.2 - Bipolar disorder, current episode manic severe with psychotic features Status: Acute (2) Cannabis abuse Code(s): F12.10 - Cannabis abuse, uncomplicated Status: Acute - Plan Plan: Patient at this time continues with hyperverbal speech but noted to be decreasing as well as decreasing intrusiveness on the unit. Patient compliant with medications. Patient noted to be irritable and requiring ETO yesterday but has been more cooperative and engaging with staff today although she refused labs this morning patient agreed to have him return later today. We will continue to monitor mood and behavior will continue to titrate Tegretol to reach therapeutic efficacy within the appropriate interval time for increase. Continue rest of medications. Continue to monitor mood and behavior. Continue recommendations as her prior medical team, hospitalist input appreciated. Discharge planning a progress. Justification for Continued Inpatient Stay: At risk of further decompensation at lower level care.
[2018-02-10] MEDS: ARIPiprazole 10 MG Tablet PO SCH (21:46)
[2018-02-10] MEDS: traZODone 100 MG Tablet PO SCH (21:46)
[2018-02-11] MEDS: Acetaminophen 325 MG Tablet PO PRN (03:07)
[2018-02-11] MEDS: Levothyroxine 75 MCG Tablet PO SCH (05:07)
[2018-02-11 08:22] LABS: Hematocrit 30.3 % (35.0-46.0); Hemoglobin 10.3 gm/dL (11.6-15.3); Mean Corpuscular HGB Conc 33.9 % (32.0-36.0); Mean Corpuscular Hemoglobin 28.8 pg (27.0-34.0); Mean Corpuscular Volume 85.1 fL (80.0-100.0); Mean Platelet Volume 8.1 fL (7.0-11.0); Platelet Count 335 th/mm3 (150-450); Red Blood Count 3.56 mil/mm3 (4.00-5.30); Red Cell Distribution Width 14.2 % (11.6-17.2); White Blood Count 4.2 th/mm3 (4.0-11.0)
[2018-02-11] MEDS: Lidocaine 5% Patch T-DERMAL SCH (09:52)
[2018-02-11] MEDS: carBAMazepine 100 MG Chewable Tablets PO SCH ×2 (09:52→21:50)
[2018-02-11] MEDS: Senna/Docusate Sodium 8.6/50 MG Tablet PO SCH (09:52)
[2018-02-11] MEDS: Enoxaparin Inj 80 MG/0.8 ML Syringe SQ SCH ×2 (09:52→21:51)
[2018-02-11] MEDS: Polyethylene Glycol 3350 17 GM Packet PO SCH (09:52)
[2018-02-11] MEDS: Sodium Chloride 0.9% 2 ML Flush BID IV.FLUSH SCH ×2 (09:53→22:20)
[2018-02-11] MEDS: Pantoprazole Sodium 20 MG DR Tablet PO SCH ×2 (09:53→21:50)
[2018-02-11] MEDS: Ferrous Sulfate 325 MG Tablet PO SCH ×2 (09:53→21:51)
[2018-02-11] MEDS: Metoclopramide 10 MG Tablet PO SCH ×4 (09:53→21:50)
[2018-02-11] MEDS: Sodium Chloride 1 GM Tablet PO SCH (09:53)
--- NOTE | 2018-02-11 15:25 | P.PNPSY ---
Subjective Chief Complaint: Bipolar I Disorder - current Manic Episode Remarks: Patient seen for follow-up, chart reviewed. Discussion with nursing staff reported that patient patient noted to be somewhat better today but continues to be increasing somatic, slept about 5 hours in her bed last night. Patient was found in day room noted to be occupied with activity was able to engage in interview in her room with nurse. She reports having some difficulty sleeping last evening states her mood has been "anxious" but states that she has been helping staff during this admission and that she believes that her thoughts racing are "not really". Patient continues to report being somewhat elated during interview but lessening in intensity lessening with pressured speech as well. Review of Systems All other systems reviewed negative except as stated in HPI Mental Status Examination Appearance: Appropriate Consciousness: Alert, Highly distractible (Lessening) Orientation: Person, Place, Situation Motor Activity: Normal gait Speech: Rapid (Lessening) Language: Adequate Fund of Knowledge: Adequate Attention and Concentration: Easily distracted Memory: Impaired (cannot recall who the previous president was and states "[place] or Esteban", did not recall 12/16 events until assisted), Immediate ( intact), Recent (intact) Mood: Anxious Affect: Appropriate Thought Process & Associations: Intact, Tangential (Lessening) Thought Content: Ideas of reference (states that the TV talks to everyone who can hear it except for when it is on the [employer] channel) Hallucination Type: None Delusion Type: Paranoid (Lessening), Other Suicidal Ideation: No Suicidal Plan: No Suicidal Intention: No Homicidal Ideation: No Homicidal Plan: No Homicidal Intention: No Insight: Fair (Recognizes that she is currently having a Manic Episode and wants medical treatment for her current state) Judgment: Impulsive Assessment and Plan - Assessment (1) Bipolar affective, manic, severe w/ psych Code(s): F31.2 - Bipolar disorder, current episode manic severe with psychotic features Status: Acute (2) Cannabis abuse Code(s): F12.10 - Cannabis abuse, uncomplicated Status: Acute - Plan Plan: Patient continues to have labile mood but appears to be lessening and continues with pressured speech but also seems to be improving. Patient has a compliant medications. Patient noted with poor sleep less evening. We will continue current treatment and plans to continue to titrate carbamazepine to 400 mg p.o. twice daily at the appropriate interval (in 2 days). Continue to encourage patient to maintain appropriate boundaries. Patient noted to be less intrusive. Continue to monitor mood and behavior. Discharge planning a progress. Justification for Continued Inpatient Stay: At risk of further decompensation at lower level care.
--- NOTE | 2018-02-11 16:27 | P.PNIM ---
Subjective Interval history: Follow-up right lower extremity edema with history of DVT. Patient seen and examined, complaining of right lower leg pain and edema states that she had a history of DVT on that leg. Patient denies any complaint of chest pain or shortness of breath. Patient denies any headache or dizziness, denies any abdominal pain, nausea, vomiting, diarrhea or constipation. Patient denies any fever or chills. Patient complains of some sniffles and runny nose. Denies any coughing or phlegm. Physical Exam Vital signs: Vital Signs 02/10/18 17:28 02/11/18 06:00 Temperature 98.9 F 98.2 F Pulse Rate 88 79 Respiratory Rate 16 18 Blood Pressure 131/78 137/60 Pulse Oximetry 98 95 Intake & Output 02/10/18 02/11/18 02/11/18 18:59 06:59 18:59 Intake Total 360 / 360 460 / 460 Balance 360 / 360 460 / 460 Intake: Oral 360 / 360 360 / 360 Oral Supplement 100 / 100 Other: # Voids 1 Date of Last Bowel Movement 02/10/18 02/10/18 # Bowel Movements 0 Narrative: GENERAL: Well-developed, well-nourished, hyperactive female in no apparent distress SKIN: Warm and dry. HEAD: Atraumatic. Normocephalic. EYES: Pupils equal and round. No scleral icterus. No injection or drainage. ENT: No nasal bleeding or discharge. Mucous membranes pink and moist. NECK: Trachea midline. No JVD. CARDIOVASCULAR: Regular rate and rhythm. RESPIRATORY: No accessory muscle use. Clear to auscultation. Breath sounds equal bilaterally. GASTROINTESTINAL: Abdomen soft, non-tender, nondistended. Hepatic and splenic margins not palpable. MUSCULOSKELETAL: Extremities without clubbing, cyanosis, with bilateral lower extremity edema, right lower extremity edema greater than left. No obvious deformities. NEUROLOGICAL: Awake and alert and oriented x3. No obvious cranial nerve deficits. Motor grossly within normal limits. Five out of 5 muscle strength in the arms and legs. Normal speech. PSYCHIATRIC: A hyperactive mood and affect; insight and judgment poor Results - Labs CBC & Chem 7: 02/11/18 07:30 02/09/18 15:06 Laboratory Results - last 24 hr 02/11/18 07:30 WBC 4.2 RBC 3.56 L Hgb 10.3 L Hct 30.3 L MCV 85.1 MCH 28.8 MCHC 33.9 RDW 14.2 Plt Count 335 MPV 8.1 Assessment and Plan - Assessment (1) Abdominal pain Code(s): R10.9 - Unspecified abdominal pain (2) Bipolar affective, manic, severe w/ psych Code(s): F31.2 - Bipolar disorder, current episode manic severe with psychotic features Status: Acute (3) Diabetes type 2, controlled Code(s): E11.9 - Type 2 diabetes mellitus without complications Status: Acute (4) Hypothyroidism Code(s): E03.9 - Hypothyroidism, unspecified Status: Acute - Plan 52-year-old white female admitted for acute hyponatremia and acute shelley with past medical history of DVT, and diabetes mellitus type 2. Lower extremity edema, possible cellulitis Dependant bilateral lower extremity swelling. -Patient on Xarelto for reported DVT or ischemic colitis, patient is poor historian. -No documented imaging in [facility] EMR of DVT or ischemic colitis. -Patient reports DVT Dx [facility] about 4 weeks ago. -LE US with noted nonocclusive thrombus within right proximal and distal femoral vein and profundus vein. -Hematology consulted, greatly appreciate assistance. -Noted significant interactions with patient's psychotropics as well as Xarelto. -Currently on therapeutic dose of Lovenox until possible alternative psychotropics are established. -Discussed with , limitations exist due to patients allergy to medications. Not sure if hematology would consider IVC filter. -Encourage elevation. -Given yesterday dose of Lasix 20 mg PO x 1. Bilateral lower extremities with edema, R>L. No pain to left lower extremity. -We will give Lasix times 3 days, and KCl, monitor BMP Hypotonic hyponatremia, resolved 118 upon admission, received NS bolus in the ER. -TSH wnl. Etiology is not clear although the patient says she used to take " salt supplements." -Random urine sodium wnl, urine osmolality low. F/u lithium level. Possible medication induced SIADH vs GI losses -continue Sodium tabs daily. Monitor sodium. Diabetes T2, controlled Monitor sugars, Accu-Chek before meals and at bedtime with insulin sliding scale, may discontinue in 5 days if no coverage needed. -Decrease Metformin 500mg BID, lower dose - home dose 1,000mg -HgbA1c 5.7 -Follow up with PCP in 3 months, may cont to lower dose -Blood glucose fair controlled Atypical chest pain. Resolved. Epigastric discomfort. Resolved. -Patient reports similar symptoms with nausea and vomiting previously. -EKG reviewed, normal sinus rhythm with no acute changes noted compared to prior EKG -Troponin negative, CKMB mildly elevated at 5.1 likely secondary to patient's pacing around the halls, repeat enzymes negative, repeat EKG with normal sinus rhythm. -2D-Echo 60-65% on 01/15/18 -Continue Protonix twice daily. -No complaints of pain, resolved. Iron deficiency microcytic anemia -Hematology has started patient on iron supplementation. -Stool for occult blood ordered, specimen awaiting to be sent History of/hyperlipidemia/hypothyroidism - continue home medications, atorvastatin, Synthroid - TSH 0.773 -Lipid panel stable Acute shelley/acute psychosis extensive psych hx of schizophrenia and bipolar and long antipsychotic allergy list - lithium level 0.1 mL, UDS negative -Management with psychiatric team DVT prop Xarelto Patient medically cleared to transfer to regular psych unit. Thank you for your consultation we will be available as necessary. Code Status: Full code Discussed Condition With: Patient and nurse
[2018-02-11] MEDS: ARIPiprazole 10 MG Tablet PO SCH (21:51)
[2018-02-11] MEDS: traZODone 100 MG Tablet PO SCH (21:51)
[2018-02-12] MEDS: Levothyroxine 75 MCG Tablet PO SCH (05:00)
[2018-02-12] MEDS: Acetaminophen 325 MG Tablet PO PRN ×2 (05:00→17:27)
--- NOTE | 2018-02-12 08:58 | P.TTN ---
- Patient Problems Problems: 1. Discharge planning 2. Medication compliance 3. Knowledge deficit 4. Lack of coping skills - Progress Toward Goals Provider Present: Dr. Amparo Dodson (February 02, 2018 patient's shelley is softening, Dr. Dodson intends to remove the one-on-one, titrating medications, patient remains for further stabilization. February 04, 2018 patient remains manic, irritable, and needs to remain for further stabilization.) Provider Input: 02/11/18: pt currently on tegretal 350 BID; pt is slowly stabilizing, further medication adjustments limited relative to pt's elevated sodium issues. Pt's sister has indicated she would like pt to remain at [facility] until pt is stabilized so pt can return to [facility]. Pt continues to meet in -pt criteria. 02/09/18: Pt continues to be manic, hyperverbal, intrusive and needs to remain for further stabilization. Tegrertal being titrated. Collateral from pt's sister is that pt continues to exhibit shelley. 01/28: Adjusting and increasing pt's medications today, pt is homeless, case management is working on placement to [facility], watch water intake due to decrease in sodium Nurse(s) Present: Agnieszka Nurse Input: 01/28: Pt remains manic, hyperverbal, religiously preoccupied, rapid pressured speech, med compliant Psychiatric Counselors Present: Isaac Lentz Jr., [facility] (Counselor spoke with Alice from [facility]. Alice is requesting the patient will return to their facility upon discharge), Steffanie Liz, [facility] Psychiatric Therapist Input: 02/09/18: Pt plof was [facility], current plan is for pt to return when stabilized. Pt currrently meets criteria for in- pt status. Group Spec/RT/OT/BARRERA Present: LOGAN Lagos, HOLLY Ratliff ( Patient attends select groups and is redirectable.), Rasta Archibald OT, HOLLY Harper (February 02, 2018 patient attends select groups and is redirectable) Group Spec/RT/OT/BARRERA Input: 02/11/18: Pt attends most groups lately but she continues to moderately intrusive and hyperverbal, she is consistently in other people's business. Pt is redirectable with moderate effort, she is able to exercise more self-control though still needs external cuing to do so. 02/09/18 : Pt attends select groups, she is intrusive, hyperverbal, needs repeated, nearly constant re-direction. 01/28: Pt attends select groups with 1:1 and constant redirection to remain quiet, focused, seated. Manic, intrusive, hyperverbal, increase in participation noted, pt is able to complete simple tasks Clinical Coordinator: Tasha Mathews [facility] Additional Input: 02/11/18: Pt's sister has indicated she would like pt to remain at [facility] until pt is stabilized so pt can return to [facility]. Pt continues to meet in-pt criteria. 02/09/18: Pt plof was [facility], current plan is for pt to return when stabilized. Pt currrently meets criteria for in-pt status. - Discharge Plan Other 02/11/18: Pt's sister has indicated she would like pt to remain at [facility] until pt is stabilized so pt can return to [facility]. Pt continues to meet in-pt criteria. 01/28: Pt discharge planning in progress with placement to [facility] - Documentation Teaching Recipient: Patient
[2018-02-12] MEDS ORDERED: Potassium Chloride 10 MEQ ER Capsule PO SCH (09:00)
[2018-02-12] MEDS ORDERED: Furosemide 20 MG Tablet PO SCH (09:00)
[2018-02-12] MEDS: Lidocaine 5% Patch T-DERMAL SCH (09:31)
[2018-02-12] MEDS: carBAMazepine 100 MG Chewable Tablets PO SCH ×2 (09:31→21:28)
[2018-02-12] MEDS: Ferrous Sulfate 325 MG Tablet PO SCH ×2 (09:32→21:26)
[2018-02-12] MEDS: Sodium Chloride 1 GM Tablet PO SCH (09:32)
[2018-02-12] MEDS: Metoclopramide 10 MG Tablet PO SCH ×4 (09:32→21:27)
[2018-02-12] MEDS: Pantoprazole Sodium 20 MG DR Tablet PO SCH ×2 (09:33→21:28)
[2018-02-12] MEDS: Enoxaparin Inj 80 MG/0.8 ML Syringe SQ SCH ×2 (09:33→21:29)
[2018-02-12] MEDS: Polyethylene Glycol 3350 17 GM Packet PO SCH (09:34)
[2018-02-12] MEDS: Senna/Docusate Sodium 8.6/50 MG Tablet PO SCH (09:34)
[2018-02-12] MEDS: Sodium Chloride 0.9% 2 ML Flush BID IV.FLUSH SCH ×2 (09:34→20:11)
--- NOTE | 2018-02-12 13:22 | P.PNONC ---
Subjective Interval history: Patient poor historian due to her current mental status. She has difficulty answering questions, changes the subject rapidly, and gives contradicting answers. Patient denies any pain, shortness of breath. She reports vomiting yesterday, "because the medicines make me sick to my stomach". Patient initially denies bleeding from any source, including hematuria vaginal bleeding or dark stools. She later changes her answers and reports a tiny amount of vaginal bleeding last week "a tiny spot", she then reports that she had vaginal bleeding 4-5 years ago. She reports taken the iron supplementation, "but it gives me too much energy" Objective Vital Signs/Intake & Output: Vital Signs 02/11/18 18:22 02/12/18 06:20 Temperature 97.9 F 98.4 F Pulse Rate 79 84 Respiratory Rate 18 18 Blood Pressure 122/61 135/66 Pulse Oximetry 98 95 Intake & Output 02/11/18 02/12/18 02/12/18 18:59 06:59 18:59 Intake Total 600 / 600 240 / 240 240 / 240 Balance 600 / 600 240 / 240 240 / 240 Intake: Oral 600 / 600 240 / 240 240 / 240 Other: # Voids 3 1 Date of Last Bowel Movement 02/10/18 02/11/18 Result Diagrams: 02/11/18 07:30 02/09/18 15:06 Medications: Active Medications Generic Name Dose Route Start Last Admin Trade Name Freq PRN Reason Stop Dose Admin Acetaminophen 650 mg 01/16/18 20:17 02/12/18 05:00 Tylenol PO 650 mg Q4H PRN Administration Pain 1-5 or Temp >101F Al Hydrox/Mg Hydrox/Simethicone 30 ml 01/16/18 20:17 02/06/18 12:31 Mag-Al Plus Susp Liq PO 30 ml Q6H PRN Administration DYSPEPSIA Al Hydroxide/Mg Hydroxide 30 ml 01/16/18 20:17 02/11/18 05:20 Milk Of Magnesia Liq PO 30 ml Q12H PRN Administration Mild Constipation Aripiprazole 10 mg 02/08/18 21:00 02/11/18 21:51 Abilify PO 10 mg HS HAMZAH Administration Atorvastatin Calcium 40 mg 01/17/18 11:30 02/12/18 09:33 Lipitor PO 40 mg DAILY HAMZAH Administration Carbamazepine 350 mg 02/09/18 21:00 02/12/18 09:31 Tegretol Chewable PO 350 mg Q12H HAMZAH Administration Enoxaparin Sodium 80 mg 02/06/18 09:00 02/12/18 09:33 Lovenox Inj SQ 80 mg Q12HR HAMZAH Administration Ferrous Sulfate 325 mg 02/06/18 09:00 02/12/18 09:32 Ferosul PO 325 mg BID HAMZAH Administration Furosemide 20 mg 02/12/18 09:00 02/12/18 09:32 Lasix PO 02/14/18 09:00 20 mg DAILY HAMZAH Administration Levothyroxine Sodium 75 mcg 01/17/18 11:30 02/12/18 05:00 Synthroid PO 75 mcg DAILY@0600 HAMZAH Administration Lidocaine HCl 1 patch 01/31/18 16:15 02/12/18 09:31 Lidoderm 5% Patch.12 Hr T-DERMAL 1 patch DAILY HAMZAH Administration Metformin HCl 500 mg 01/17/18 11:30 02/12/18 09:32 Glucophage PO 500 mg BIDPC HAMZAH Administration Metoclopramide HCl 5 mg 01/17/18 13:00 02/12/18 09:32 Reglan PO 5 mg QID HAMZAH Administration Miscellaneous 1 each 02/02/18 20:12 02/11/18 22:09 Pill Splitter OTHER 1 each UNSCH PRN Administration PILL SPLITTER Multivitamins 1 tab 01/17/18 11:45 02/12/18 09:32 Theragran PO 1 tab DAILY HAMZAH Administration Padimate O 1 applicatio 01/17/18 15:00 01/17/18 14:30 Chapstick TOPICAL 1 applicatio UNSCH PRN Administration Dry lips Pantoprazole Sodium 20 mg 02/06/18 21:00 02/12/18 09:33 Protonix PO 20 mg BID HAMZAH Administration Patch Removal 1 each 01/31/18 21:00 02/11/18 22:20 Remove Old Patch T-DERMAL Not Given HS HAMZAH Polyethylene Glycol 17 gm 02/03/18 14:30 02/12/18 09:34 Miralax PO Not Given DAILY HAMZAH Potassium Chloride 10 meq 02/12/18 09:00 02/12/18 09:32 Kcl PO 02/14/18 09:00 10 meq DAILY HAMZAH Administration Senna/Docusate Sodium 1 tab 01/20/18 09:00 02/12/18 09:34 Sarahi-Colace PO 1 tab DAILY HAMZAH Administration Sodium Chloride 2 ml 01/17/18 21:00 02/12/18 09:34 Ns Flush IV.FLUSH Not Given BID HAMZAH Sodium Chloride 1 gm 01/18/18 09:00 02/12/18 09:32 Sodium Chloride PO 1 gm DAILY HAMZAH Administration Trazodone HCl 100 mg 01/30/18 21:00 02/11/18 21:51 Desyrel PO 100 mg HS HAMZAH Administration Objective Remarks: GENERAL: Well-nourished, well-developed middle-aged female patient, in no acute distress. SKIN: Warm and dry. HEAD: Normocephalic. EYES: No scleral icterus. No injection or drainage. NECK: Supple, trachea midline. CARDIOVASCULAR: Regular rate and rhythm without murmurs. RESPIRATORY: Posterior breath sounds clear, equal bilaterally. No accessory muscle use. GASTROINTESTINAL: Abdomen large, soft, non-tender, nondistended. EXTREMITIES: No cyanosis. Bilateral nonpitting edema RLE > LLE. MUSCULOSKELETAL: Adequate muscle tone. NEUROLOGICAL: No obvious focal deficit. Awake, alert, and oriented x3. PSYCHIATRIC: Difficulty focusing, patient rapidly changes the subject when asked a question. Assessment/Plan - Plan Ms. Evans is a 52-year-old lady whom I have been asked to see for further workup and management of a non-occlusive/chronic appearing right lower extremity deep venous thrombosis. This appears to be chronic because of its nonocclusive nature. She has symptoms of leg swelling and calf pain especially if she walks. Per the electronic health record, she had been on intermediate dose anticoagulation at the time of admission with Xarelto 10 mg once daily. She has no symptoms of difficulty breathing, pleuritic chest pain, cough or hemoptysis suggestive of pulmonary emboli. Plan: 1. Right lower extremity DVT, continue Lovenox. 2. Normocytic anemia. Awaiting stool for Hemoccult study. Patient is poor historian and gives multiple answers to the same question, therefore we will do a pelvis ultrasound as the patient may have had vaginal bleeding post menopause. 3. Continue iron supplementation.
[2018-02-12] MEDS ORDERED: Furosemide 20 MG Tablet PO ONE (14:27)
--- NOTE | 2018-02-12 14:30 | P.PNIM ---
Subjective Interval history: Follow-up visit right lower extremity edema, history of DVT, anemia iron deficiency, DM 2. Patient seen and examined today. Reports she continues to have right lower extremity edema but states that it has gotten better. Able to ambulate without difficulty. Denies pain and discomfort. Denies SOB/ dyspnea. Denies chest pain, palpitations, headaches, dizziness. Denies fevers, chills, n/v/d. Denies dysuria. Physical Exam Vital signs: Vital Signs 02/11/18 18:22 02/12/18 06:20 Temperature 97.9 F 98.4 F Pulse Rate 79 84 Respiratory Rate 18 18 Blood Pressure 122/61 135/66 Pulse Oximetry 98 95 Intake & Output 02/11/18 02/12/18 02/12/18 18:59 06:59 18:59 Intake Total 600 / 600 240 / 240 240 / 240 Balance 600 / 600 240 / 240 240 / 240 Intake: Oral 600 / 600 240 / 240 240 / 240 Other: # Voids 3 1 Date of Last Bowel Movement 02/10/18 02/11/18 Narrative: GENERAL: This is a well-nourished, well-developed patient, in no apparent distress. SKIN: Warm and dry. HEENT: Normocephalic. Pupils equal round and reactive. Nose without bleeding. Airway patent. NECK: Trachea midline. CARDIOVASCULAR: Regular rate and rhythm without murmurs, gallops, or rubs. RESPIRATORY: Clear to auscultation. Breath sounds equal bilaterally. No wheezes , rales, or rhonchi. GASTROINTESTINAL: Abdomen soft, non-tender, nondistended. Bowel Sounds normoactive x4. MUSCULOSKELETAL: Extremities without clubbing, cyanosis. Right lower extremity +2 edema. Left lower extremity trace edema. NEUROLOGICAL: Awake and alert. Oriented to time, place, person. No focal neuro deficit. Moves all extremities. Normal speech. Results - Labs CBC & Chem 7: 02/11/18 07:30 02/09/18 15:06 Assessment and Plan - Assessment (1) Abdominal pain Code(s): R10.9 - Unspecified abdominal pain (2) Bipolar affective, manic, severe w/ psych Code(s): F31.2 - Bipolar disorder, current episode manic severe with psychotic features Status: Acute (3) Diabetes type 2, controlled Code(s): E11.9 - Type 2 diabetes mellitus without complications Status: Acute (4) Hypothyroidism Code(s): E03.9 - Hypothyroidism, unspecified Status: Acute - Plan 52-year-old white female being admitted for acute hyponatremia and acute shelley. Right lower extremity DVT Right lower extremity edema -Patient previously taking Xarelto, per review of records Xarelto has interactions with psychotropic medications. -Currently on Lovenox per recommendation of hematology -Pending Hemoccult, for hematology to decide anticoagulation for patient. -Hematology following. Appreciate recommendation -Lasix increased to 40 mg daily. Will add extra dose today. Potassium supplementation. Recheck BMP Anemia, normocytic -Pending Hemoccult study -Hematology following. Recommends pelvic ultrasound for ruling out vaginal bleeding post menopause -Iron supplements Acute shelley Schizophrenia and bipolar disorder -Managed by psychiatry team -Improving DM 2, controlled -Metformin 500mg BID, lower dose - home dose 1,000mg -Follow up with PCP in 3 months, may cont to lower dose HLD -Cont atorvastatin Hypothyroidism - continue home Synthroid Hypotonic hyponatremia, resolved -TSH wnl. Etiology is not clear although the patient says she used to take "salt supplements." -Random urine sodium wnl, urine osmolality low. F/u lithium level. Possible medication induced SIADH vs GI losses -Echo 60-65% EF -Sodium tabs daily. Monitor sodium intermittently History of chronic constipation and ischemic colitis -No GI symptoms reported -Improved symptoms -Reglan 4 times daily DVT prop Lovenox Full code Discussed with patient, nursing Discharge Planning: DC disposition by primary team
--- NOTE | 2018-02-12 15:42 | P.PNPSY ---
Subjective Chief Complaint: Bipolar I Disorder - current Manic Episode Remarks: Patient seen for follow up; chart reviewed. Discussion with nursing staff reported patient no nausea or vomiting today but patient had some emesis last evening. Patient was found in day room noted B, cooperative. It was also noted participating in group activity earlier today. Patient seen with nurse and medical student. Patient states that she is feeling "awesome" continues to have some disorganization tangentiality during interview but noted to be lessening as well as lessening of pressured speech and decreasing mood lability although continues to have moments of elation during interview. Patient states that her physical pain from her leg has been decreasing as well denying any other physical complaints at this time. Patient reports having slept well last evening. Patient states having spoken to her sister prior to her transfer to the inpatient psychiatry unit and states that the patient's sister did not no longer wanted to talk to her which at this point patient became tearful. Review of Systems All other systems reviewed negative except as stated in HPI Mental Status Examination Appearance: Appropriate Consciousness: Alert, Highly distractible (Lessening) Orientation: Person, Place, Situation Motor Activity: Normal gait Speech: Rapid (Lessening) Language: Adequate Fund of Knowledge: Adequate Attention and Concentration: Easily distracted Memory: Impaired (cannot recall who the previous president was and states "[place] or Esteban", did not recall 12/16 events until assisted), Immediate ( intact), Recent (intact) Mood: Other (Elated at times but lessening) Affect: Appropriate Thought Process & Associations: Intact, Tangential (Lessening) Thought Content: Ideas of reference (states that the TV talks to everyone who can hear it except for when it is on the [employer] channel), Racing thoughts ( Decreasing) Hallucination Type: None Delusion Type: Paranoid (Lessening) Suicidal Ideation: No Suicidal Plan: No Suicidal Intention: No Homicidal Ideation: No Homicidal Plan: No Homicidal Intention: No Insight: Fair (Recognizes that she is currently having a Manic Episode and wants medical treatment for her current state) Judgment: Impulsive Assessment and Plan - Assessment (1) Bipolar affective, manic, severe w/ psych Code(s): F31.2 - Bipolar disorder, current episode manic severe with psychotic features Status: Acute (2) Cannabis abuse Code(s): F12.10 - Cannabis abuse, uncomplicated Status: Acute - Plan Plan: Patient continues with pressured speech some disorganization tangentiality continues to have some level of intrusion but has been improving in all these aspects. We will continue to titrate Abilify to 50 mg p.o. daily, continue Tegretol 300 mg p.o. twice daily, continue rest of medications. Hospitalist input and skin former input appreciated. Continue recommendations as per prior medical team. We will continue to monitor mood and behavior. We will continue to titrate mood stabilizing medication to address the shelley. Discharge planning a progress. Justification for Continued Inpatient Stay: At risk of further decompensation at lower level care.
[2018-02-12] MEDS: traZODone 100 MG Tablet PO SCH (21:27)
[2018-02-12 22:16] LABS: Prothrombin Time 10.2 sec (9.8-11.6)
[2018-02-13] MEDS: Levothyroxine 75 MCG Tablet PO SCH (06:07)
[2018-02-13] MEDS: Metoclopramide 10 MG Tablet PO SCH ×4 (09:14→20:44)
[2018-02-13] MEDS: Acetaminophen 325 MG Tablet PO PRN ×2 (09:14→22:38)
[2018-02-13] MEDS: Pantoprazole Sodium 20 MG DR Tablet PO SCH ×2 (09:15→20:43)
[2018-02-13] MEDS: Polyethylene Glycol 3350 17 GM Packet PO SCH ×2 (09:15→17:48)
[2018-02-13] MEDS: carBAMazepine 100 MG Chewable Tablets PO SCH ×2 (09:15→17:51)
[2018-02-13] MEDS: Sodium Chloride 1 GM Tablet PO SCH (09:15)
[2018-02-13] MEDS: Senna/Docusate Sodium 8.6/50 MG Tablet PO SCH ×2 (09:15→17:48)
[2018-02-13] MEDS: Ferrous Sulfate 325 MG Tablet PO SCH ×2 (09:16→20:43)
[2018-02-13] MEDS: Sodium Chloride 0.9% 2 ML Flush BID IV.FLUSH SCH ×2 (09:16→20:44)
[2018-02-13] MEDS: Potassium Chloride 10 MEQ ER Capsule PO SCH (09:16)
[2018-02-13] MEDS: Enoxaparin Inj 80 MG/0.8 ML Syringe SQ SCH ×2 (09:24→20:44)
[2018-02-13] MEDS: Lidocaine 5% Patch T-DERMAL SCH (09:24)
[2018-02-13] MEDS: Furosemide 20 MG Tablet PO SCH (09:24)
[2018-02-13 09:28] LABS: Calcium 9.3 mg/dL (8.5-10.1)
--- NOTE | 2018-02-13 10:00 | US ---
EXAM DATE: 02/13/2018 9:54 AM EST AGE/SEX: 52 years / Female INDICATIONS: Post-menopausal bleeding. CLINICAL DATA: This is the patient's initial encounter. Patient reports that signs and symptoms have been present for 2 days and indicates a pain score of 0/10. MEDICAL/SURGICAL HISTORY: Anemia. Hypothyroidism. Hypertension. Bipolar. Hyperlipidemia. Karan izophrenia. Tonsillectomy. COMPARISON: [facility] [place], CT ABDOMEN & PELVIS W CONTRAST, 04/30/2017. . MEASUREMENTS: Uterus:__9.4 x 5.4 x 3.6 cm Endometrial Stripe:__4 mm Right Ovary:__ 2.3 x 2.1 x 0.9 cm Left Ovary:__ 1.9 x 1.3 x 1.5 cm FINDINGS: Uterus: The myometrium has homogeneous echotexture without mass. Endometrial Stripe: The endometrial stripe displays homogeneous echotexture. Right Ovary: Ovary contains no mass or significant cystic lesion. Left Ovary: Ovary contains no mass or significant cystic lesion. Fluid: No free fluid. Other: None. CONCLUSION: 1. Unremarkable transabdominal ultrasound examination of the pelvis. The endometrium appears homogen eous and normal in thickness. However, evaluation is limited due to lack of transvaginal imaging. Electronically signed by: Danny Vivas MD 02/13/2018 9:58 AM EST
--- NOTE | 2018-02-13 15:00 | P.PNIM ---
Subjective Interval history: Patient seen today for follow up on right lower extremity edema, history of DVT , and anemia. She is doing well. She is eating sugar free ice cream and talking with a patient. She states the swelling in her right leg has improved and she is able to flex and extend her right ankle. She denies chest pain, palpitations , shortness of breath, or headache. Denies fevers, nausea, vomiting, or diarrhea. Physical Exam Vital signs: Vital Signs 02/12/18 18:06 02/13/18 05:44 Temperature 98.3 F 98.2 F Pulse Rate 74 77 Respiratory Rate 18 18 Blood Pressure 150/97 H 126/57 L Pulse Oximetry 98 95 Intake & Output 02/12/18 02/13/18 02/13/18 18:59 06:59 18:59 Intake Total 720 / 720 480 / 480 Balance 720 / 720 480 / 480 Intake: Oral 720 / 720 480 / 480 Other: Date of Last Bowel Movement 02/13/18 Narrative: GENERAL: This is a well-nourished, well-developed patient, in no apparent distress. SKIN: Warm and dry. HEENT: Normocephalic. Pupils equal round and reactive. Nose without bleeding. Airway patent. NECK: Trachea midline. CARDIOVASCULAR: Regular rate and rhythm without murmurs, gallops, or rubs. RESPIRATORY: Clear to auscultation. Breath sounds equal bilaterally. No wheezes , rales, or rhonchi. GASTROINTESTINAL: Abdomen soft, non-tender, nondistended. Bowel Sounds normoactive x4. MUSCULOSKELETAL: Extremities without clubbing, cyanosis. Right lower extremity +2 edema. Left lower extremity trace edema. NEUROLOGICAL: Awake and alert. Oriented to time, place, person. No focal neuro deficit. Moves all extremities. Normal speech. Results - Labs CBC & Chem 7: 02/11/18 07:30 02/13/18 07:34 Laboratory Results - last 24 hr 02/12/18 02/12/18 02/13/18 21:33 21:33 07:34 PT 10.2 INR 1.0 Sodium 131 L Potassium 4.0 Chloride 95 L Carbon Dioxide 26.0 Anion Gap 10 BUN 11 Creatinine 0.73 Estimated GFR 83 L Random Glucose 87 Calcium 9.3 Carbamazepine 5.3 Microbiology 02/13/18 04:15 Stool Stool Occult Blood (SHAWN) - Final Hemoccult negative - Imaging Impressions Pelvis Ultrasound 02/13/18 00:00 CONCLUSION: 1. Unremarkable transabdominal ultrasound examination of the pelvis. The endometrium appears homogeneous and normal in thickness. However, evaluation is limited due to lack of transvaginal imaging. Assessment and Plan - Assessment (1) Abdominal pain Code(s): R10.9 - Unspecified abdominal pain (2) Bipolar affective, manic, severe w/ psych Code(s): F31.2 - Bipolar disorder, current episode manic severe with psychotic features Status: Acute (3) Diabetes type 2, controlled Code(s): E11.9 - Type 2 diabetes mellitus without complications Status: Acute (4) Hypothyroidism Code(s): E03.9 - Hypothyroidism, unspecified Status: Acute - Plan 52-year-old white female being admitted for acute hyponatremia and acute shelley. Right lower extremity edema secondary to DVT -Patient previously taking Xarelto, per review of records Xarelto has interactions with psychotropic medications. -Continue Lovenox BID, await hematology recommendations for transition to PO NOAC if possible -Continue Lasix and KCL. Repeat labs on Friday Normochromic anemia -Hemoccult negative -Continue iron supplement -Hematology following appreciate recommendations. Bipolar disorder, Manic, Schizophrenic -Managed by psychiatry -Improving Diabetes mellitus, stable -Continue Metformin 500 mg twice daily. -Follow up with PCP in 3 months, may cont to lower dose Hyponatremia -TSH wnl. Etiology is not clear although the patient says she used to take "salt supplements." -PreviousRandom urine sodium wnl, urine osmolality low. F/u lithium level. Possible medication induced SIADH vs GI losses -Echo 60-65% EF -Continue sodium tabs 1 gm. -Monitor sodium, recheck on Friday. If continues to be low may increase sodium tabs. Hyperlipidemia -Continue atorvastatin Hypothyroidism -Continue levothyroxine History of chronic constipation and ischemic colitis -No GI symptoms reported -Improved symptoms -Reglan 4 times daily DVT prop Lovenox Code Status: Full code Discussed Condition With: Discussed with patient, nursing Discharge Planning: DC disposition by primary team
--- NOTE | 2018-02-13 15:31 | P.PNPSY ---
Subjective Chief Complaint: Bipolar I Disorder - current Manic Episode Remarks: Patient seen for follow-up, chart reviewed. Discussion with nursing staff reported that patient had poor sleep last evening continues to be tangential and disorganized at times. Patient was found sitting in day room eating lunch noted B, cooperative. Patient states that she vomited last night was able to recall having had previous episode of emesis. Patient states that her mood has been "good" stating that she had "missed a cruise" referring to recent news of a cruise ship being the biggest of its kind and stating wishing she was able to go on a cruise. Patient continues to be tangential but able to be redirected back to conversation. Patient agrees to return back to her assisted living facility where she at first was resistant to refuse but now amenable to returning there for now. She mentions having not spoken to her complex case manager for some time will like to touch base with her. Patient continues to deny any perceptional services continues to have some disorganization through interview but appears to be lessening. As per nursing patient continues to have some irritability with their interactions with her. Review of Systems All other systems reviewed negative except as stated in HPI Mental Status Examination Appearance: Appropriate Consciousness: Alert, Highly distractible (Lessening) Orientation: Person, Place, Situation Motor Activity: Normal gait Speech: Rapid (Lessening) Language: Adequate Fund of Knowledge: Adequate Attention and Concentration: Easily distracted Memory: Impaired (cannot recall who the previous president was and states "Leandro or Esteban", did not recall 9/11 events until assisted), Immediate ( intact), Recent (intact) Mood: Other (Elated at times but lessening) Affect: Labile (Lessening) Thought Process & Associations: Intact, Loose associations, Disorganized (at times), Tangential (Lessening) Thought Content: Racing thoughts (Decreasing) Hallucination Type: None Delusion Type: Paranoid (Lessening but continues to be noted with staff) Suicidal Ideation: No Suicidal Plan: No Suicidal Intention: No Homicidal Ideation: No Homicidal Plan: No Homicidal Intention: No Insight: Fair (Recognizes that she is currently having a Manic Episode and wants medical treatment for her current state) Judgment: Impulsive Assessment and Plan - Assessment (1) Bipolar affective, manic, severe w/ psych Code(s): F31.2 - Bipolar disorder, current episode manic severe with psychotic features Status: Acute (2) Cannabis abuse Code(s): F12.10 - Cannabis abuse, uncomplicated Status: Acute - Plan Plan: Patient currently continues to have labile mood with tangentiality and notable pressured speech but lessening. She continues with disorganization and intrusiveness at times. Will continue to titrate carbamazepine to 400mg PO BID , will continue rest of medications. Will continue to monitor sodium levels and continue recommendations as per primary medical team. Continue to monitor mood and behavior. Discharge planning in progress. Justification for Continued Inpatient Stay: At risk of further decompensation at lower level care.
[2018-02-13] MEDS: traZODone 100 MG Tablet PO SCH (20:43)
[2018-02-14] MEDS: Acetaminophen 325 MG Tablet PO PRN ×2 (05:08→21:12)
[2018-02-14] MEDS: carBAMazepine 100 MG Chewable Tablets PO SCH ×3 (05:42→17:16)
[2018-02-14] MEDS: Levothyroxine 75 MCG Tablet PO SCH (05:42)
[2018-02-14] MEDS: Metoclopramide 10 MG Tablet PO SCH ×4 (09:35→21:12)
[2018-02-14] MEDS: Pantoprazole Sodium 20 MG DR Tablet PO SCH ×2 (09:35→21:12)
[2018-02-14] MEDS: Potassium Chloride 10 MEQ ER Capsule PO SCH (09:35)
[2018-02-14] MEDS: Ferrous Sulfate 325 MG Tablet PO SCH ×2 (09:36→21:11)
[2018-02-14] MEDS: Furosemide 20 MG Tablet PO SCH (09:36)
[2018-02-14] MEDS: Sodium Chloride 1 GM Tablet PO SCH (09:36)
[2018-02-14] MEDS: Enoxaparin Inj 80 MG/0.8 ML Syringe SQ SCH ×2 (09:36→21:16)
[2018-02-14] MEDS: Senna/Docusate Sodium 8.6/50 MG Tablet PO SCH (09:36)
[2018-02-14] MEDS: Sodium Chloride 0.9% 2 ML Flush BID IV.FLUSH SCH (09:37)
[2018-02-14] MEDS: Polyethylene Glycol 3350 17 GM Packet PO SCH (09:37)
[2018-02-14] MEDS: Lidocaine 5% Patch T-DERMAL SCH (09:37)
--- NOTE | 2018-02-14 13:29 | P.PNIM ---
Subjective Interval history: Patient seen today for follow up on right lower extremity edema, history of DVT , and anemia. Patient seen and examined today. Reports she is doing well. States she has her hair Today and feeling a lot better. States she wanted to go home. Patient states that right lower extremity edema is improving. Denies pain and discomfort. Denies SOB/ dyspnea. Denies chest pain, palpitations, headaches, dizziness. Denies fevers, chills, n/v/d. Denies dysuria. Physical Exam Vital signs: Vital Signs 02/14/18 06:00 Temperature 98.5 F Pulse Rate 71 Respiratory Rate 18 Blood Pressure 118/60 Pulse Oximetry 98 Intake & Output 02/13/18 02/14/18 02/14/18 18:59 06:59 18:59 Intake Total 1800 / 1800 580 / 580 Balance 1800 / 1800 580 / 580 Intake: Oral 1800 / 1800 480 / 480 Oral Supplement 100 / 100 Other: # Voids 2 Date of Last Bowel Movement 02/13/18 02/13/18 # Bowel Movements 0 Narrative: GENERAL: This is a well-nourished, well-developed patient, in no apparent distress. SKIN: Warm and dry. HEENT: Normocephalic. Pupils equal round and reactive. Nose without bleeding. Airway patent. NECK: Trachea midline. CARDIOVASCULAR: Regular rate and rhythm without murmurs, gallops, or rubs. RESPIRATORY: Clear to auscultation. Breath sounds equal bilaterally. No wheezes , rales, or rhonchi. GASTROINTESTINAL: Abdomen soft, non-tender, nondistended. Bowel Sounds normoactive x4. MUSCULOSKELETAL: Extremities without clubbing, cyanosis. Right lower extremity +2 edema. Left lower extremity trace edema. NEUROLOGICAL: Awake and alert. Oriented to time, place, person. No focal neuro deficit. Moves all extremities. Normal speech. Results - Labs CBC & Chem 7: 02/11/18 07:30 02/13/18 07:34 Assessment and Plan - Assessment (1) Abdominal pain Code(s): R10.9 - Unspecified abdominal pain (2) Bipolar affective, manic, severe w/ psych Code(s): F31.2 - Bipolar disorder, current episode manic severe with psychotic features Status: Acute (3) Diabetes type 2, controlled Code(s): E11.9 - Type 2 diabetes mellitus without complications Status: Acute (4) Hypothyroidism Code(s): E03.9 - Hypothyroidism, unspecified Status: Acute - Plan 52-year-old white female being admitted for acute hyponatremia and acute shelley. Right lower extremity edema secondary to DVT -Patient previously taking Xarelto, per review of records Xarelto has interactions with psychotropic medications. -Continue Lovenox BID, await hematology recommendations for transition to PO NOAC if possible -Continue Lasix and KCL. Repeat labs on Friday -Improving edema Normochromic anemia -Hemoccult negative -Continue iron supplement -Hematology following appreciate recommendations. Bipolar disorder, Manic, Schizophrenic -Managed by psychiatry -Improving Diabetes mellitus, stable -Continue Metformin 500 mg twice daily. -Follow up with PCP in 3 months, may cont to lower dose Hyponatremia -TSH wnl. Etiology is not clear although the patient says she used to take "salt supplements." -PreviousRandom urine sodium wnl, urine osmolality low. F/u lithium level. Possible medication induced SIADH vs GI losses -Echo 60-65% EF -Continue sodium tabs 1 gm. -Monitor sodium, recheck on Friday. If continues to be low may increase sodium tabs. Hyperlipidemia -Continue atorvastatin Hypothyroidism -Continue levothyroxine History of chronic constipation and ischemic colitis -No GI symptoms reported -Improved symptoms -Reglan 4 times daily DVT prop Lovenox Code Status: Full Code Discussed Condition With: Patient, nursing Discharge Planning: DC disposition by primary team
--- NOTE | 2018-02-14 13:33 | P.PNPSY ---
Subjective Chief Complaint: Bipolar I Disorder - current Manic Episode Remarks: Patient was seen and case discussed with nursing. Patient remains with manic symptoms but less so. Though, she remains internally stimulated, hyper energetic, hyperverbal, intrusive,. She is pleasant and compliant with medications. Denies suicidal or homicidal ideation intent or plan. Mental Status Examination Appearance: Appropriate Consciousness: Alert, Highly distractible (Lessening) Orientation: Person, Place, Situation Motor Activity: Normal gait Speech: Rapid (Lessening) Language: Adequate Fund of Knowledge: Adequate Attention and Concentration: Easily distracted Memory: Impaired (cannot recall who the previous president was and states "[place] or [place]eb[place]", did not recall 12/16 events until assisted), Immediate ( intact), Recent (intact) Mood: Other (Elated at times but lessening) Affect: Other (Elevated) Thought Process & Associations: Intact, Loose associations, Disorganized (at times), Tangential (Lessening) Thought Content: Racing thoughts (Decreasing) Hallucination Type: None Delusion Type: Paranoid (Lessening but continues to be noted with staff) Suicidal Ideation: No Suicidal Plan: No Suicidal Intention: No Homicidal Ideation: No Homicidal Plan: No Homicidal Intention: No Insight: Fair (Recognizes that she is currently having a Manic Episode and wants medical treatment for her current state) Judgment: Impulsive Assessment and Plan - Assessment (1) Bipolar affective, manic, severe w/ psych Code(s): F31.2 - Bipolar disorder, current episode manic severe with psychotic features Status: Acute (2) Cannabis abuse Code(s): F12.10 - Cannabis abuse, uncomplicated Status: Acute - Plan Plan: Continue current treatment plan Justification for Continued Inpatient Stay: Patient would decompensate in a less restrictive setting
[2018-02-14] MEDS: traZODone 100 MG Tablet PO SCH (21:12)
[2018-02-15] MEDS: carBAMazepine 100 MG Chewable Tablets PO SCH ×2 (05:16→17:11)
[2018-02-15] MEDS: Levothyroxine 75 MCG Tablet PO SCH (05:16)
[2018-02-15] MEDS: Sodium Chloride 0.9% 2 ML Flush BID IV.FLUSH SCH ×2 (05:17→09:30)
--- NOTE | 2018-02-15 08:50 | P.PNPSY ---
Subjective Chief Complaint: Bipolar I Disorder - current Manic Episode Remarks: Medical record reviewed and discussed with nursing staff. Patient in day room eating breakfast. Rounded with FRED Vega. Patient continues to demonstrates some shelley, but less that I have witnessed in the past. She is less intrusive and more focused. Nursing staff report that she is not crying as much as she has in the past. Patient states today that she is working at getting better and doing her own ADLs because she wants to go home . Review of Systems All other systems reviewed negative except as stated in HPI Mental Status Examination Appearance: Appropriate Consciousness: Alert, Highly distractible (Lessening) Orientation: Person, Place, Situation Motor Activity: Normal gait Speech: Rapid (Lessening) Language: Adequate Fund of Knowledge: Adequate Attention and Concentration: Easily distracted Memory: Impaired (cannot recall who the previous president was and states "[place] or [place]eb[place]", did not recall 12/16 events until assisted), Immediate ( intact), Recent (intact) Mood: Other (Elated at times but lessening) Affect: Other (Elevated) Thought Process & Associations: Intact, Loose associations, Disorganized (at times), Tangential (Lessening) Thought Content: Racing thoughts (Decreasing) Hallucination Type: None Delusion Type: Paranoid (Lessening but continues to be noted with staff) Suicidal Ideation: No Suicidal Plan: No Suicidal Intention: No Homicidal Ideation: No Homicidal Plan: No Homicidal Intention: No Insight: Fair (Recognizes that she is currently having a Manic Episode and wants medical treatment for her current state) Judgment: Impulsive Assessment and Plan - Assessment (1) Bipolar affective, manic, severe w/ psych Code(s): F31.2 - Bipolar disorder, current episode manic severe with psychotic features Status: Acute - Plan Plan: Continue current treatment plan Justification for Continued Inpatient Stay: Moving patient to a less restrictive environment may result in her decompensation.
[2018-02-15 09:06] LABS: Baso # (Auto) 0.1 th/mm3 (0.0-0.2); Baso % (Auto) 1.4 % (0.0-2.0); Hematocrit 31.6 % (35.0-46.0); Hemoglobin 10.6 gm/dL (11.6-15.3); Lymph # (Auto) 1.1 th/mm3 (1.0-4.8); Lymph % (Auto) 32.5 % (9.0-44.0); Mean Corpuscular HGB Conc 33.6 % (32.0-36.0); Mean Corpuscular Hemoglobin 29.4 pg (27.0-34.0); Mean Corpuscular Volume 87.4 fL (80.0-100.0); Mean Platelet Volume 7.9 fL (7.0-11.0); Mono # (Auto) 0.4 th/mm3 (0.0-0.9); Mono % (Auto) 11.7 % (0.0-8.0); Neut # (Auto) 1.9 th/mm3 (1.8-7.7); Neut % (Auto) 54.4 % (16.0-70.0); Platelet Count 270 th/mm3 (150-450); Red Blood Count 3.62 mil/mm3 (4.00-5.30); Red Cell Distribution Width 14.5 % (11.6-17.2); White Blood Count 3.5 th/mm3 (4.0-11.0)
[2018-02-15] MEDS: Ferrous Sulfate 325 MG Tablet PO SCH ×2 (09:24→21:23)
[2018-02-15] MEDS: Sodium Chloride 1 GM Tablet PO SCH (09:24)
[2018-02-15] MEDS: Senna/Docusate Sodium 8.6/50 MG Tablet PO SCH (09:24)
[2018-02-15] MEDS: Metoclopramide 10 MG Tablet PO SCH ×4 (09:25→21:23)
[2018-02-15] MEDS: Pantoprazole Sodium 20 MG DR Tablet PO SCH ×2 (09:25→21:24)
[2018-02-15] MEDS: Furosemide 20 MG Tablet PO SCH (09:26)
[2018-02-15] MEDS: Potassium Chloride 10 MEQ ER Capsule PO SCH (09:26)
[2018-02-15] MEDS: Enoxaparin Inj 80 MG/0.8 ML Syringe SQ SCH ×2 (09:28→22:23)
[2018-02-15] MEDS: Lidocaine 5% Patch T-DERMAL SCH (09:28)
[2018-02-15] MEDS: Polyethylene Glycol 3350 17 GM Packet PO SCH (09:29)
[2018-02-15 09:34] LABS: Calcium 9.3 mg/dL (8.5-10.1); Carbon Dioxide 27.9 meq/L (21.0-32.0)
--- NOTE | 2018-02-15 13:25 | P.PNIM ---
Subjective Interval history: Patient seen today for follow up on right lower extremity edema, history of DVT , and anemia. Patient seen and examined today. Reports she is doing well. Right lower extremity edema is improving. Complains of constipation. Denies pain and discomfort. Denies SOB/ dyspnea. Denies chest pain, palpitations, headaches, dizziness. Denies fevers, chills, n/v/d. Denies dysuria. Physical Exam Vital signs: Vital Signs 02/15/18 06:00 Temperature 98.1 F Pulse Rate 79 Respiratory Rate 16 Blood Pressure 125/58 L Pulse Oximetry 94 L Intake & Output 02/14/18 02/15/18 02/15/18 18:59 06:59 18:59 Other: Date of Last Bowel Movement 02/13/18 Narrative: GENERAL: This is a well-nourished, well-developed patient, in no apparent distress. SKIN: Warm and dry. HEENT: Normocephalic. Pupils equal round and reactive. Nose without bleeding. Airway patent. NECK: Trachea midline. CARDIOVASCULAR: Regular rate and rhythm without murmurs, gallops, or rubs. RESPIRATORY: Clear to auscultation. Breath sounds equal bilaterally. No wheezes , rales, or rhonchi. GASTROINTESTINAL: Abdomen soft, non-tender, nondistended. Bowel Sounds normoactive x4. MUSCULOSKELETAL: Extremities without clubbing, cyanosis. Right lower extremity +1 edema. Left lower extremity trace edema. NEUROLOGICAL: Awake and alert. Oriented to time, place, person. No focal neuro deficit. Moves all extremities. Normal speech. Results - Labs CBC & Chem 7: 02/15/18 08:38 02/15/18 08:38 Laboratory Results - last 24 hr 02/15/18 02/15/18 08:38 08:38 WBC 3.5 L RBC 3.62 L Hgb 10.6 L Hct 31.6 L MCV 87.4 MCH 29.4 MCHC 33.6 RDW 14.5 Plt Count 270 MPV 7.9 Neut % (Auto) 54.4 Lymph % (Auto) 32.5 [place] % (Auto) 11.7 H Eos % (Auto) 0.0 Baso % (Auto) 1.4 Neut # (Auto) 1.9 Lymph # (Auto) 1.1 [place] # (Auto) 0.4 Eos # (Auto) 0.0 Baso # (Auto) 0.1 WBC Differential . Differential Comment Auto diff final Sodium 135 L Potassium 4.0 Chloride 98 Carbon Dioxide 27.9 Anion Gap 9 BUN 12 Creatinine 0.86 Estimated GFR 69 L Random Glucose 111 H Calcium 9.3 Assessment and Plan - Assessment (1) Abdominal pain Code(s): R10.9 - Unspecified abdominal pain (2) Bipolar affective, manic, severe w/ psych Code(s): F31.2 - Bipolar disorder, current episode manic severe with psychotic features Status: Acute (3) Diabetes type 2, controlled Code(s): E11.9 - Type 2 diabetes mellitus without complications Status: Acute (4) Hypothyroidism Code(s): E03.9 - Hypothyroidism, unspecified Status: Acute - Plan 52-year-old white female being admitted for acute hyponatremia and acute shelley. Right lower extremity edema secondary to DVT -Patient previously taking Xarelto, per review of records Xarelto has interactions with psychotropic medications. -Continue Lovenox BID, await hematology recommendations for transition to PO NOAC if possible -Continue Lasix and KCL. -Improving edema Normochromic anemia -Hemoccult negative -Continue iron supplement -Hematology following appreciate recommendations. Bipolar disorder, Manic, Schizophrenic -Managed by psychiatry -Improving Diabetes mellitus, stable -Continue Metformin 500 mg twice daily. -Follow up with PCP in 3 months, may cont to lower dose Hyponatremia -TSH wnl. Etiology is not clear although the patient says she used to take "salt supplements." -PreviousRandom urine sodium wnl, urine osmolality low. F/u lithium level. Possible medication induced SIADH vs GI losses -Echo 60-65% EF -Continue sodium tabs 1 gm. -Monitor sodium -Improved Hyperlipidemia -Continue atorvastatin Hypothyroidism -Continue levothyroxine History of chronic constipation and ischemic colitis -No GI symptoms reported -Improved symptoms -Reglan 4 times daily DVT prop Lovenox Code Status: Full code Discussed Condition With: Patient, nurse Discharge Planning: DC disposition by primary team
[2018-02-15] MEDS: traZODone 100 MG Tablet PO SCH (21:24)
[2018-02-16] MEDS: carBAMazepine 100 MG Chewable Tablets PO SCH (08:11)
[2018-02-16] MEDS: Potassium Chloride 10 MEQ ER Capsule PO SCH ×2 (08:12→08:22)
[2018-02-16] MEDS: Levothyroxine 75 MCG Tablet PO SCH (08:12)
[2018-02-16] MEDS: Senna/Docusate Sodium 8.6/50 MG Tablet PO SCH (08:12)
[2018-02-16] MEDS: Ferrous Sulfate 325 MG Tablet PO SCH (08:12)
[2018-02-16] MEDS: Pantoprazole Sodium 20 MG DR Tablet PO SCH (08:12)
[2018-02-16] MEDS: Enoxaparin Inj 80 MG/0.8 ML Syringe SQ SCH (08:12)
[2018-02-16] MEDS: Metoclopramide 10 MG Tablet PO SCH ×3 (08:13→17:36)
[2018-02-16] MEDS: Furosemide 20 MG Tablet PO SCH (08:13)
[2018-02-16] MEDS: Sodium Chloride 0.9% 2 ML Flush BID IV.FLUSH SCH ×2 (08:22→21:25)
[2018-02-16] MEDS: Lidocaine 5% Patch T-DERMAL SCH (08:22)
[2018-02-16] MEDS: Polyethylene Glycol 3350 17 GM Packet PO SCH (08:22)
[2018-02-16] MEDS: Sodium Chloride 1 GM Tablet PO SCH (08:23)
--- NOTE | 2018-02-16 09:37 | P.TTN ---
- Patient Problems Problems: 1. Discharge planning 2. Medication compliance 3. Knowledge deficit 4. Lack of coping skills - Progress Toward Goals Provider Present: Dr. Amparo Dodosn (February 02, 2018 patient's shelley is softening, Dr. Dodson intends to remove the one-on-one, titrating medications, patient remains for further stabilization. February 04, 2018 patient remains manic, irritable, and needs to remain for further stabilization.) Provider Input: 02/16/18: pt continuing medication; patient is continuing to slowly stabalize, continue medication mangement. case loader operator is continuing to work on locating safe placement for [facility] - at this time reviewing [facility]. 02/11/18: pt currently on tegretal 350 BID; pt is slowly stabilizing, further medication adjustments limited relative to pt's elevated sodium issues. Pt's sister has indicated she would like pt to remain at [facility] until pt is stabilized so pt can return to [facility]. Pt continues to meet in-pt criteria. 02/09/18 : Pt continues to be manic, hyperverbal, intrusive and needs to remain for further stabilization. Tegrertal being titrated. Collateral from pt's sister is that pt continues to exhibit shelley. 01/28: Adjusting and increasing pt's medications today, pt is homeless, case management is working on placement to [facility], watch water intake due to decrease in sodium Nurse(s) Present: Agnieszka Nurse Input: 02/16/18: pt continuing hyperverbal, pt continuing to socialize, rapid pressure speech and is continuing to be medication compliant. 01/28: Pt remains manic, hyperverbal, religiously preoccupied, rapid pressured speech, med compliant Psychiatric Counselors Present: Isaac Lentz Jr., [facility] (Counselor spoke with Alice from [facility]. Alice is requesting the patient will return to their facility upon discharge), Steffanie Liz, [facility] Psychiatric Therapist Input: 02/16/18: pt is improving slowly, case loader operator is to work on finding different placement, at this time reviewing [facility], as of Friday02/13/18 pt was still improving per provider. 02/09/18: Pt plof was [facility], current plan is for pt to return when stabilized. Pt currrently meets criteria for in-pt status. Group Spec/RT/OT/BARRERA Present: Litzy Santacruz, GPS, HOLLY Ratliff ( Patient attends select groups and is redirectable.), Rasta Archibald, OT, HOLLY Harper (February 02, 2018 patient attends select groups and is redirectable) Group Spec/RT/OT/BARRERA Input: 02/16/18: pt continues to participate in groups, patient continues looking forward to socialization and participation. 02/11/18: Pt attends most groups lately but she continues to moderately intrusive and hyperverbal, she is consistently in other people's business. Pt is redirectable with moderate effort, she is able to exercise more self-control though still needs external cuing to do so. 02/09/18: Pt attends select groups, she is intrusive, hyperverbal, needs repeated, nearly constant re-direction. 01/28: Pt attends select groups with 1:1 and constant redirection to remain quiet, focused, seated. Manic, intrusive, hyperverbal, increase in participation noted , pt is able to complete simple tasks Clinical Coordinator: Tasha Mathews [facility] Additional Input: 02/11/18: Pt's sister has indicated she would like pt to remain at [facility] until pt is stabilized so pt can return to [facility]. Pt continues to meet in-pt criteria. 02/09/18: Pt plof was [facility], current plan is for pt to return when stabilized. Pt currrently meets criteria for in-pt status. - Discharge Plan Other (Further evaluation for [facility] placement - at this time reviewing opportunity for [facility]) 02/11/18: Pt's sister has indicated she would like pt to remain at [facility] until pt is stabilized so pt can return to [facility]. Pt continues to meet in-pt criteria. 01/28: Pt discharge planning in progress with placement to [facility]MENT - Documentation Teaching Recipient: Patient
--- NOTE | 2018-02-16 13:13 | P.PNIM ---
Subjective Interval history: Follow up on right lower extremity edema, history of DVT, and anemia. Patient seen and examined today. Argumentative. Reports why is she not allowed to have salt in her diet. Discussed and explained with patient she is allowed to have salt in her diet but not going from the kitchen she can add her salt packets to her meals if she needed to. Patient went on and on with this trying to say her meals are inconsistent with which she requested. Right lower extremity edema is improving. Patient is more concerned of another male resident. Denies pain and discomfort. Denies SOB/ dyspnea. Denies chest pain, palpitations, headaches, dizziness. Denies fevers, chills, n/v/d. Denies dysuria. Physical Exam Vital signs: Vital Signs 02/15/18 19:03 02/16/18 05:38 Temperature 98.0 F 98.1 F Pulse Rate 74 79 Respiratory Rate 18 17 Blood Pressure 113/74 131/78 Pulse Oximetry 100 Intake & Output 02/15/18 02/16/18 02/16/18 18:59 06:59 18:59 Intake Total 960 / 960 Balance 960 / 960 Intake: Oral 960 / 960 Other: # Voids 3 Narrative: GENERAL: This is a well-nourished, well-developed patient, in no apparent distress. SKIN: Warm and dry. HEENT: Normocephalic. Pupils equal round and reactive. Nose without bleeding. Airway patent. NECK: Trachea midline. CARDIOVASCULAR: Regular rate and rhythm without murmurs, gallops, or rubs. RESPIRATORY: Clear to auscultation. Breath sounds equal bilaterally. No wheezes , rales, or rhonchi. GASTROINTESTINAL: Abdomen soft, non-tender, nondistended. Bowel Sounds normoactive x4. MUSCULOSKELETAL: Extremities without clubbing, cyanosis. Right lower extremity Trace-+1 edema. Left lower extremity trace edema. NEUROLOGICAL: Awake and alert. Oriented to time, place, person. No focal neuro deficit. Moves all extremities. Normal speech. Results - Labs CBC & Chem 7: 02/15/18 08:38 02/15/18 08:38 Assessment and Plan - Assessment (1) Abdominal pain Code(s): R10.9 - Unspecified abdominal pain (2) Bipolar affective, manic, severe w/ psych Code(s): F31.2 - Bipolar disorder, current episode manic severe with psychotic features Status: Acute (3) Diabetes type 2, controlled Code(s): E11.9 - Type 2 diabetes mellitus without complications Status: Acute (4) Hypothyroidism Code(s): E03.9 - Hypothyroidism, unspecified Status: Acute - Plan 52-year-old white female being admitted for acute hyponatremia and acute shelley. Right lower extremity edema secondary to DVT -Patient previously taking Xarelto, per review of records Xarelto has interactions with psychotropic medications. -Continue Lovenox BID, await hematology recommendations for transition to PO NOAC if possible -Continue Lasix and KCL, low dose, may cont to use when DC -Improving edema Normochromic anemia -Hemoccult negative -Continue iron supplement -Hematology following appreciate recommendations. Bipolar disorder, Manic, Schizophrenic -Managed by psychiatry -Improving Diabetes mellitus, stable -Continue Metformin 500 mg twice daily. -Follow up with PCP in 3 months, may cont to lower dose Hyponatremia -TSH wnl. Etiology is not clear although the patient says she used to take "salt supplements." -PreviousRandom urine sodium wnl, urine osmolality low. F/u lithium level. Possible medication induced SIADH vs GI losses -Echo 60-65% EF -Continue sodium tabs 1 gm. -Monitor sodium -Improved Hyperlipidemia -Continue atorvastatin Hypothyroidism -Continue levothyroxine History of chronic constipation and ischemic colitis -No GI symptoms reported -Improved symptoms -Reglan 4 times daily DVT prop Lovenox Stable from Hospitalist standpoint. We will sign off. Reconsult as needed. Thank you. Code Status: Full Code Discussed Condition With: Patient, nursing Discharge Planning: DC disposition by primary team
--- NOTE | 2018-02-16 17:09 | P.PNPSY ---
Subjective Chief Complaint: Bipolar I Disorder - current Manic Episode Remarks: Patient seen for follow-up, chart reviewed. Discussion with nursing staff reported that patient noted to be intrusive with staff and peers recently argumentative, hypersexual with other patients, compliant with medications. Patient was found sitting in day room eating lunch was able to engage in interview today with nurse. Patient noted to be labile today tearful at times with loosening of association continues to be tangential. Patient states she is feeling "irritable" with staff and having multiple complaints with staff. Patient requires redirection during interview as she would go on a tangent. States patient states she wants to go home but does admit to having poor sleep at night although as per record patient sleeping about 5 hours.. Patient later during the afternoon had required Ativan 2 mg IM as patient had become upset and agitated on the unit. Review of Systems All other systems reviewed negative except as stated in HPI Mental Status Examination Appearance: Appropriate Consciousness: Alert, Highly distractible (Lessening) Orientation: Person, Place, Situation Motor Activity: Normal gait Speech: Rapid (Lessening) Language: Adequate Fund of Knowledge: Adequate Attention and Concentration: Easily distracted Memory: Impaired (cannot recall who the previous president was and states "[place] or Esteban", did not recall 12/16 events until assisted), Immediate ( intact), Recent (intact) Mood: Other (Elated at times but lessening) Affect: Other (Elevated) Thought Process & Associations: Intact, Loose associations, Disorganized (at times), Tangential (Lessening) Thought Content: Racing thoughts (Decreasing) Hallucination Type: None Delusion Type: Paranoid (Lessening but continues to be noted with staff) Suicidal Ideation: No Suicidal Plan: No Suicidal Intention: No Homicidal Ideation: No Homicidal Plan: No Homicidal Intention: No Insight: Fair (Recognizes that she is currently having a Manic Episode and wants medical treatment for her current state) Judgment: Impulsive Assessment and Plan - Assessment (1) Bipolar affective, manic, severe w/ psych Code(s): F31.2 - Bipolar disorder, current episode manic severe with psychotic features Status: Acute (2) Cannabis abuse Code(s): F12.10 - Cannabis abuse, uncomplicated Status: Acute - Plan Plan: Patient this time noted to have continued pressured speech but less intense but also continues to have tangentiality and loosening associations require redirection during interview today relevant to topic. Patient is attending groups but noted to be more irritable recently with staff and other peers. We will continue to titrate Abilify to 20 mg p.o. at bedtime, continue Tegretol at 400 mg p.o. twice daily. We will continue to monitor sodium levels as they have improved but continues to be with mild hyponatremia. Continue to monitor mood and behavior. Discharge planning a progress. Justification for Continued Inpatient Stay: At risk of further decompensation at lower level care.
[2018-02-17] MEDS: Pantoprazole Sodium 20 MG DR Tablet PO SCH ×3 (00:16→22:03)
[2018-02-17] MEDS: Metoclopramide 10 MG Tablet PO SCH ×5 (00:17→22:06)
[2018-02-17] MEDS: Ferrous Sulfate 325 MG Tablet PO SCH ×3 (00:17→22:03)
[2018-02-17] MEDS: carBAMazepine 100 MG Chewable Tablets PO SCH ×3 (00:17→22:04)
[2018-02-17] MEDS: Enoxaparin Inj 80 MG/0.8 ML Syringe SQ SCH ×2 (00:18→10:26)
[2018-02-17] MEDS: traZODone 100 MG Tablet PO SCH ×2 (00:23→22:03)
[2018-02-17] MEDS: Levothyroxine 75 MCG Tablet PO SCH (06:25)
[2018-02-17] MEDS: Potassium Chloride 10 MEQ ER Capsule PO SCH (10:24)
[2018-02-17] MEDS: Furosemide 20 MG Tablet PO SCH (10:24)
[2018-02-17] MEDS: Sodium Chloride 0.9% 2 ML Flush BID IV.FLUSH SCH ×2 (10:24→21:44)
[2018-02-17] MEDS: Sodium Chloride 1 GM Tablet PO SCH (10:25)
[2018-02-17] MEDS: Senna/Docusate Sodium 8.6/50 MG Tablet PO SCH (10:25)
[2018-02-17] MEDS: Lidocaine 5% Patch T-DERMAL SCH (10:27)
[2018-02-17] MEDS: Polyethylene Glycol 3350 17 GM Packet PO SCH (10:27)
--- NOTE | 2018-02-17 15:21 | P.PNPSY ---
Subjective Chief Complaint: Bipolar I Disorder - current Manic Episode Remarks: Patient seen for follow-up, chart reviewed. Discussion with nursing staff reported that patient responded well to Ativan yesterday was able to have a better night's rest last evening. Patient was found in day room noted B, cooperative eating lunch noted to be less tangential today more organized. Patient states that she slept very well last evening after he received the Ativan stating that she feels "good" stating that her thoughts are more organized but continues to be noted to have some slight tangentiality still but less pressured speech and more cooperative and less intrusive today. Review of Systems All other systems reviewed negative except as stated in HPI Mental Status Examination Appearance: Appropriate Consciousness: Alert, Highly distractible (Lessening) Orientation: Person, Place, Situation Motor Activity: Normal gait Speech: Pressured (Lessening) Language: Adequate Fund of Knowledge: Adequate Attention and Concentration: Easily distracted (Lessening) Memory: Impaired (cannot recall who the previous president was and states "Dingess or Esteban", did not recall 12/16 events until assisted), Immediate ( intact), Recent (intact) Mood: Good Affect: Labile (Improving) Thought Process & Associations: Intact, Loose associations, Disorganized (at times), Tangential (Lessening) Thought Content: Racing thoughts (Decreasing) Hallucination Type: None Delusion Type: Paranoid (Lessening but continues to be noted with staff) Suicidal Ideation: No Suicidal Plan: No Suicidal Intention: No Homicidal Ideation: No Homicidal Plan: No Homicidal Intention: No Insight: Fair (Recognizes that she is currently having a Manic Episode and wants medical treatment for her current state) Judgment: Impulsive Assessment and Plan - Assessment (1) Bipolar affective, manic, severe w/ psych Code(s): F31.2 - Bipolar disorder, current episode manic severe with psychotic features Status: Acute (2) Cannabis abuse Code(s): F12.10 - Cannabis abuse, uncomplicated Status: Acute - Plan Plan: Patient continues to have pressured speech and tangentiality but appears to be slowly improving. Patient responded well to Ativan yesterday which she patient had improved sleep last night. We will add Lorazepam 1 mg p.o. twice daily. Continue rest of medications. Continue to monitor mood and behavior. Discharge planning a progress. Justification for Continued Inpatient Stay: At risk of further decompensation at lower level care.
[2018-02-17] MEDS: LORazepam 1 MG Tablet PO SCH (22:05)
[2018-02-17] MEDS: Acetaminophen 325 MG Tablet PO PRN (22:10)
[2018-02-18] MEDS: Enoxaparin Inj 80 MG/0.8 ML Syringe SQ SCH ×2 (00:36→10:09)
[2018-02-18] MEDS: Levothyroxine 75 MCG Tablet PO SCH (06:27)
[2018-02-18] MEDS: carBAMazepine 100 MG Chewable Tablets PO SCH ×2 (09:16→20:29)
[2018-02-18] MEDS: Metoclopramide 10 MG Tablet PO SCH ×4 (09:18→20:27)
[2018-02-18] MEDS: Potassium Chloride 10 MEQ ER Capsule PO SCH (09:20)
[2018-02-18] MEDS: Pantoprazole Sodium 20 MG DR Tablet PO SCH ×2 (09:20→20:27)
[2018-02-18] MEDS: Ferrous Sulfate 325 MG Tablet PO SCH ×2 (09:21→20:26)
[2018-02-18] MEDS: Sodium Chloride 1 GM Tablet PO SCH (09:22)
[2018-02-18] MEDS: LORazepam 1 MG Tablet PO SCH ×2 (09:23→20:27)
[2018-02-18] MEDS: Furosemide 20 MG Tablet PO SCH (09:24)
[2018-02-18] MEDS: Senna/Docusate Sodium 8.6/50 MG Tablet PO SCH (09:25)
[2018-02-18] MEDS: Polyethylene Glycol 3350 17 GM Packet PO SCH (09:25)
[2018-02-18] MEDS: Lidocaine 5% Patch T-DERMAL SCH (09:27)
[2018-02-18] MEDS: Sodium Chloride 0.9% 2 ML Flush BID IV.FLUSH SCH (09:28)
--- NOTE | 2018-02-18 11:41 | P.PNPSY ---
Subjective Chief Complaint: Bipolar I Disorder - current Manic Episode Remarks: Patient seen for follow-up, chart reviewed. Discussion with nursing staff reported that patient tearful today disorganized at times during interactions with nurse compliant with medications slept last night continue to flight of ideas but decreased pressured speech. Patient was found in day room noted B, cooperative seen with nurse. Patient was noted to be tearful throughout interview stating that she wants to go home but also mentioning not being able to have her shoes she started to walk around and hospital socks. Patient continues to have some tangentiality and flight of ideas was noted to be lessening as well as pressured speech also continues to be decreasing. Patient reports eating and drinking well, tolerating medications well. Patient expresses not wanting to continue Lovenox injections as he states that his uncomfortable and painful at times and continue to receive this on a daily basis. Plan of having patient being recommended by medical team for oral anticoagulant was reviewed with patient which she agreed with. Review of Systems All other systems reviewed negative except as stated in HPI Mental Status Examination Appearance: Appropriate Consciousness: Alert, Highly distractible (Lessening) Orientation: Person, Place, Situation Motor Activity: Normal gait Speech: Pressured (Lessening) Language: Adequate Fund of Knowledge: Adequate Attention and Concentration: Easily distracted (Lessening) Memory: Impaired (cannot recall who the previous president was and states "Leandro or Esteban", did not recall 12/16 events until assisted), Immediate ( intact), Recent (intact) Mood: Good Affect: Labile (Improving) Thought Process & Associations: Loose associations, Disorganized (at times), Tangential (Lessening) Thought Content: Preoccupations (With going home) Hallucination Type: None Delusion Type: Paranoid (Lessening but continues to be noted with staff) Suicidal Ideation: No Suicidal Plan: No Suicidal Intention: No Homicidal Ideation: No Homicidal Plan: No Homicidal Intention: No Insight: Fair (Recognizes that she is currently having a Manic Episode and wants medical treatment for her current state) Judgment: Impulsive Assessment and Plan - Assessment (1) Bipolar affective, manic, severe w/ psych Code(s): F31.2 - Bipolar disorder, current episode manic severe with psychotic features Status: Acute (2) Cannabis abuse Code(s): F12.10 - Cannabis abuse, uncomplicated Status: Acute - Plan Plan: Patient appears to have decreasing pressured speech and tangentiality we will continue to have some flight of ideas during interview. Patient noted to be very tearful during interview today wanting to be discharged as well as requesting clothing items. There is also evidence of mood lability but appears to be the and appears patient's disorganized thought process is improving as well. We will decrease lorazepam to 0.5 mg a.m./1 mg at bedtime patient reporting somnolence this morning. Hospitalist consult requested for recommendations of having patient switch to an oral anti-coagulant as assisted living facility will not accept patient on Lovenox. Discharge planning a progress. Justification for Continued Inpatient Stay: At risk of further decompensation at lower level care.
--- NOTE | 2018-02-18 14:06 | P.PNIM ---
Subjective Interval history: 02-16 Follow up on right lower extremity edema, history of DVT, and anemia. Patient seen and examined today. Argumentative. Reports why is she not allowed to have salt in her diet. Discussed and explained with patient she is allowed to have salt in her diet but not going from the kitchen she can add her salt packets to her meals if she needed to. Patient went on and on with this trying to say her meals are inconsistent with which she requested. Right lower extremity edema is improving. Patient is more concerned of another male resident. Denies pain and discomfort. Denies SOB/ dyspnea. Denies chest pain , palpitations, headaches, dizziness. Denies fevers, chills, n/v/d. Denies dysuria. 02-18 asked to see patient regarding switching patient to PO ANTICOAGULATION WILL DC LOVENOX AND SWITCH BACK TO XARELTO 10MG PO DAILY DW RN AND PT AND PSYCHIATRY Physical Exam Vital signs: Vital Signs 02/17/18 17:45 02/18/18 06:51 Temperature 98.7 F 98.1 F Pulse Rate 73 81 Respiratory Rate 18 18 Blood Pressure 133/89 115/59 L Pulse Oximetry 95 98 Intake & Output 02/17/18 02/18/18 02/18/18 18:59 06:59 18:59 Intake Total 1440 / 1440 460 / 460 Balance 1440 / 1440 460 / 460 Intake: Oral 1440 / 1440 360 / 360 Oral Supplement 100 / 100 Other: # Voids 3 2 Date of Last Bowel Movement 02/13/18 02/17/18 # Bowel Movements 1 Narrative: GENERAL: This is a well-nourished, well-developed patient, in no apparent distress. SKIN: Warm and dry. HEENT: Normocephalic. Pupils equal round and reactive. Nose without bleeding. Airway patent. NECK: Trachea midline. CARDIOVASCULAR: Regular rate and rhythm without murmurs, gallops, or rubs. RESPIRATORY: Clear to auscultation. Breath sounds equal bilaterally. No wheezes , rales, or rhonchi. GASTROINTESTINAL: Abdomen soft, non-tender, nondistended. Bowel Sounds normoactive x4. MUSCULOSKELETAL: Extremities without clubbing, cyanosis. Right lower extremity Trace-+1 edema. Left lower extremity trace edema. NEUROLOGICAL: Awake and alert. Oriented to time, place, person. No focal neuro deficit. Moves all extremities. Normal speech. Results - Labs CBC & Chem 7: 02/15/18 08:38 02/15/18 08:38 Assessment and Plan - Assessment (1) Abdominal pain Code(s): R10.9 - Unspecified abdominal pain (2) Bipolar affective, manic, severe w/ psych Code(s): F31.2 - Bipolar disorder, current episode manic severe with psychotic features Status: Acute (3) Diabetes type 2, controlled Code(s): E11.9 - Type 2 diabetes mellitus without complications Status: Acute (4) Hypothyroidism Code(s): E03.9 - Hypothyroidism, unspecified Status: Acute - Plan 52-year-old white female being admitted for acute hyponatremia and acute shelley. Right lower extremity edema secondary to DVT -Patient previously taking Xarelto, per review of records Xarelto has interactions with psychotropic medications. -Discontinue Lovenox BID, SWITCH BACK TO XARELTO 10MG PO DAILY -Continue Lasix and KCL, low dose, may cont to use when DC -Improving edema Normochromic anemia -Hemoccult negative -Continue iron supplement -Hematology following appreciate recommendations. Bipolar disorder, Manic, Schizophrenic -Managed by psychiatry -Improving Diabetes mellitus, stable -Continue Metformin 500 mg twice daily. -Follow up with PCP in 3 months, may cont to lower dose Hyponatremia -TSH wnl. Etiology is not clear although the patient says she used to take "salt supplements." -Previous Random urine sodium WITHIN NORMAL LIMITS, urine osmolality low. F/ u lithium level. Possible medication induced SIADH vs GI losses -Echo 60-65% EF -Continue sodium tabs 1 gm. -Monitor sodium -Improved Hyperlipidemia -Continue atorvastatin Hypothyroidism -Continue levothyroxine History of chronic constipation and ischemic colitis -No GI symptoms reported -Improved symptoms -Reglan 4 times daily DVT PROPHYLAXIS SWITCH BACK TO XARELTO Code Status: FULL CODE Discussed Condition With: RN AND PT AND PSYCHIATRY Discharge Planning: PER PSYCHIATRY
[2018-02-18] MEDS ORDERED: Rivaroxaban 10 MG Tablet PO SCH (14:15)
[2018-02-18 15:54] LABS: Calcium 9.1 mg/dL (8.5-10.1); Carbon Dioxide 24.9 meq/L (21.0-32.0)
[2018-02-18] MEDS: traZODone 100 MG Tablet PO SCH (20:27)
[2018-02-19] MEDS: Acetaminophen 325 MG Tablet PO PRN (05:09)
[2018-02-19] MEDS: Levothyroxine 75 MCG Tablet PO SCH (06:08)
--- NOTE | 2018-02-19 07:59 | P.TTN ---
- Patient Problems Problems: 1. Discharge planning 2. Medication compliance 3. Knowledge deficit 4. Lack of coping skills - Progress Toward Goals Provider Present: Dr. Amparo Dodson (February 02, 2018 patient's shelley is softening, Dr. Dodson intends to remove the one-on-one, titrating medications, patient remains for further stabilization. February 04, 2018 patient remains manic, irritable, and needs to remain for further stabilization.) Provider Input: 02/18/18: Pt is being titrated on Lorazepam and Tegretal with subcutaneous Lovenox an impediment to pt being placed in [facility]. Pt does not currently meet SNF placement, OTR consults with Therapy Dept to confirm pt not meeting SNF status. MD to consult with hemotologist re: options for Lovenox (ie : P.O. medication) to increase dc options. 02/16/18: pt continuing medication; patient is continuing to slowly stabalize, continue medication mangement. lead case manager is continuing to work on locating safe placement for [facility] - at this time reviewing [facility]. 02/11/18: pt currently on tegretal 350 BID; pt is slowly stabilizing, further medication adjustments limited relative to pt's elevated sodium issues. Pt's sister has indicated she would like pt to remain at [facility] until pt is stabilized so pt can return to [facility]. Pt continues to meet in-pt criteria. 02/09/18: Pt continues to be manic, hyperverbal, intrusive and needs to remain for further stabilization. Tegrertal being titrated. Collateral from pt's sister is that pt continues to exhibit shelley. 01/28: Adjusting and increasing pt's medications today, pt is homeless, case management is working on placement to [facility], watch water intake due to decrease in sodium Nurse(s) Present: gAnieszka Nurse Input: 02/16/18: pt continuing hyperverbal, pt continuing to socialize, rapid pressure speech and is continuing to be medication compliant. 01/28: Pt remains manic, hyperverbal, religiously preoccupied, rapid pressured speech, med compliant Psychiatric Counselors Present: Isaac Lentz Jr., [facility] (Counselor spoke with Alice from [facility]. Alice is requesting the patient will return to their facility upon discharge), Steffanie Liz, [facility] Psychiatric Therapist Input: 02/16/18: pt is improving slowly, lead case manager is to work on finding different placement, at this time reviewing [facility], as of Friday02/13/18 pt was still improving per provider. 02/09/18: Pt plof was [facility], current plan is for pt to return when stabilized. Pt currrently meets criteria for in-pt status. Group Spec/RT/OT/BARRERA Present: Litzy Santacruz, GPS, Faey Davies, BARRERA ( Patient attends select groups and is redirectable.), Rasta Archibald, OT, HOLLY Harper (February 02, 2018 patient attends select groups and is redirectable) Group Spec/RT/OT/BARRERA Input: 02/18/18: Pt ontinues to participate in groups, patient continues looking forward to socialization and participation but she continues to moderately intrusive and hyperverbal. 02/16/18: pt continues to participate in groups, patient continues looking forward to socialization and participation. 02/11/18: Pt attends most groups lately but she continues to moderately intrusive and hyperverbal, she is consistently in other people's business. Pt is redirectable with moderate effort, she is able to exercise more self-control though still needs external cuing to do so. 02/09/18: Pt attends select groups, she is intrusive, hyperverbal, needs repeated, nearly constant re -direction. 01/28: Pt attends select groups with 1:1 and constant redirection to remain quiet, focused, seated. Manic, intrusive, hyperverbal, increase in participation noted, pt is able to complete simple tasks Clinical Coordinator: Tasha Mathews [facility] Additional Input: 02/11/18: Pt's sister has indicated she would like pt to remain at [facility] until pt is stabilized so pt can return to [facility]. Pt continues to meet in-pt criteria. 02/09/18: Pt plof was [facility], current plan is for pt to return when stabilized. Pt currrently meets criteria for in-pt status. - Discharge Plan Other (Further evaluation for [facility] placement - at this time reviewing opportunity for [facility]) 02/18/18: Pt does not currently meet SNF placement, OTR consults with Therapy Dept to confirm pt not meeting SNF status. MD to consult with christielogist re: options for Lovenox (ie: P.O. medication) to increase dc options. 02/11/18: Pt's sister has indicated she would like pt to remain at [facility] until pt is stabilized so pt can return to [facility]. Pt continues to meet in-pt criteria. 01/28: Pt discharge planning in progress with placement to [facility] - Documentation Teaching Recipient: Patient
[2018-02-19] MEDS: Pantoprazole Sodium 20 MG DR Tablet PO SCH ×2 (08:19→21:07)
[2018-02-19] MEDS: Furosemide 20 MG Tablet PO SCH (08:19)
[2018-02-19] MEDS: Potassium Chloride 10 MEQ ER Capsule PO SCH (08:20)
[2018-02-19] MEDS: Metoclopramide 10 MG Tablet PO SCH ×4 (08:20→21:07)
[2018-02-19] MEDS: LORazepam 0.5 MG Tablet PO SCH (08:20)
[2018-02-19] MEDS: Ferrous Sulfate 325 MG Tablet PO SCH ×2 (08:20→21:07)
[2018-02-19] MEDS: Senna/Docusate Sodium 8.6/50 MG Tablet PO SCH (08:21)
[2018-02-19] MEDS: carBAMazepine 100 MG Chewable Tablets PO SCH ×2 (08:21→21:08)
[2018-02-19] MEDS: Polyethylene Glycol 3350 17 GM Packet PO SCH (08:22)
[2018-02-19] MEDS: Sodium Chloride 1 GM Tablet PO SCH (08:22)
--- NOTE | 2018-02-19 09:10 | P.PN ---
Subjective Interval history: Follow-up visit for DVT. Patient seen and examined sitting up in chair in the day room. She denies any chills, N/V/D, cough or SOB. We discussed the need for Lovenox as oral anticoagulants interact with her Tegretol. She reports that there is nothing wrong with her mood. She would like to go home. No acute events reported by nurse. Physical Exam Vital signs: Vital Signs 02/18/18 18:07 02/19/18 05:42 Temperature 98.5 F 97.9 F Pulse Rate 81 80 Respiratory Rate 18 18 Blood Pressure 120/58 L 122/61 Pulse Oximetry 98 94 L Intake & Output 02/18/18 02/19/18 02/19/18 18:59 06:59 18:59 Intake Total 480 / 480 Balance 480 / 480 Intake: Oral 480 / 480 Other: # Voids 2 Narrative: GENERAL: This is a well-nourished, well-developed patient, in no apparent distress. SKIN: Warm and dry. HEENT: Normocephalic. Pupils equal round and reactive. Nose without bleeding. Airway patent. NECK: Trachea midline. CARDIOVASCULAR: Regular rate and rhythm without murmurs, gallops, or rubs. RESPIRATORY: Clear to auscultation. Breath sounds equal bilaterally. No wheezes , rales, or rhonchi. GASTROINTESTINAL: Abdomen soft, non-tender, nondistended. Bowel Sounds normoactive x4. MUSCULOSKELETAL: Extremities without clubbing, cyanosis. Right lower extremity Trace edema. NEUROLOGICAL: Awake and alert. No focal neuro deficit. Moves all extremities. Normal speech. Results - Labs CBC & Chem 7: 02/15/18 08:38 02/18/18 15:12 Laboratory Results - last 24 hr 02/18/18 15:12 Sodium 132 L Potassium 4.0 Chloride 98 Carbon Dioxide 24.9 Anion Gap 9 BUN 12 Creatinine 0.75 Estimated GFR 81 L Random Glucose 96 Calcium 9.1 Assessment and Plan - Assessment (1) Abdominal pain Code(s): R10.9 - Unspecified abdominal pain (2) Bipolar affective, manic, severe w/ psych Code(s): F31.2 - Bipolar disorder, current episode manic severe with psychotic features Status: Acute (3) Diabetes type 2, controlled Code(s): E11.9 - Type 2 diabetes mellitus without complications Status: Acute (4) Hypothyroidism Code(s): E03.9 - Hypothyroidism, unspecified Status: Acute - Plan 52-year-old female with past medical history significant for DM2, hyponatremia, chronic constipation, on Xarelto for possible DVT versus ischemic colitis, bipolar DO admitted on 01/16 due to hyponatremia and acute manic episode. [facility] reconsulted for evaluation of lower extremity edema as well as chest pain. Lower extremity edema, possible cellulitis -Patient on Xarelto for reported DVT or ischemic colitis, patient is poor historian. No documented imaging in [facility] of DVT or ischemic colitis. Patient reports DVT Dx [facility] about 4 weeks ago. - LE US with noted nonocclusive thrombus within right proximal and distal femoral vein and profundus vein. -Hematology consulted, greatly appreciate assistance. Noted significant interactions with patient's psychotropics as well as Xarelto. Currently on therapeutic dose of Lovenox until possible alternative psychotropics are established. - Discussed with , limitations exist due to patients allergy to medications. Not sure if hematology would consider IVC filter. - Continue subq Lovenox unless okay to DC or switch per hematology. Potential placement in the next few days however facility no will not administer subq Lovenox, patient unreliable. - Continue Lasix, edema improved. Iron deficiency normocytic anemia -Hematology has started patient on iron supplementation -Stool for occult blood negative Diabetes mellitus, stable -Continue Metformin 500 mg twice daily. -Follow up with PCP in 3 months, may cont to lower dose Hyponatremia -Currently on Na tab daily, Na levels stable. Atypical chest pain Epigastric discomfort -Patient reports similar symptoms with nausea and vomiting previously. -EKG reviewed, normal sinus rhythm with no acute changes noted compared to prior EKG -Troponin negative, CKMB mildly elevated at 5.1 likely secondary to patient's pacing around the halls, repeat enzymes negative, repeat EKG with normal sinus rhythm. -Continue Protonix twice daily. -No complaints of pain resolved. DVT prophylaxissubcu Lovenox Discussed Condition With: Patient, RN, .
[2018-02-19] MEDS: Enoxaparin Inj 80 MG/0.8 ML Syringe SQ SCH ×2 (14:45→21:07)
[2018-02-19] MEDS: Lidocaine 5% Patch T-DERMAL SCH (14:46)
--- NOTE | 2018-02-19 17:50 | P.PNPSY ---
Subjective Chief Complaint: Bipolar I Disorder - current Manic Episode Remarks: Patient seen for follow-up, chart reviewed. Discussion with nursing staff reported that patient no behavioral issues overnight, slept well. Patient was found heavily on unit noted to be, cooperative. Patient states she is feeling "good" stating that she slept some difficulty last evening due to the patient screaming on the unit last night. Patient reports his mood has been generally good although patient continued to be noted to be somewhat tangential during interview but she states that her thoughts are slowing down. Review of Systems All other systems reviewed negative except as stated in HPI Mental Status Examination Appearance: Appropriate Consciousness: Alert Orientation: Person, Place, Situation Motor Activity: Normal gait Speech: Unremarkable Language: Adequate Fund of Knowledge: Adequate Attention and Concentration: Easily distracted (Lessening) Memory: Immediate (intact), Recent (intact) Mood: Good Affect: Labile (Minimal) Thought Process & Associations: Loose associations (At times), Tangential ( Lessening) Thought Content: Preoccupations (With going home) Hallucination Type: None Delusion Type: Paranoid (Minimal) Suicidal Ideation: No Suicidal Plan: No Suicidal Intention: No Homicidal Ideation: No Homicidal Plan: No Homicidal Intention: No Insight: Fair (Recognizes that she is currently having a Manic Episode and wants medical treatment for her current state) Judgment: Impulsive Assessment and Plan - Assessment (1) Bipolar affective, manic, severe w/ psych Code(s): F31.2 - Bipolar disorder, current episode manic severe with psychotic features Status: Acute (2) Cannabis abuse Code(s): F12.10 - Cannabis abuse, uncomplicated Status: Acute - Plan Plan: Patient noted to be improving in mood although minimally labile no longer noted with pressured speech but continues to have some tangentiality during interview but easily redirected back to topic. Hospitalist input appreciated we will await recommendations by hematology have patient switch to an oral anticoagulant as patient cannot return to assisted living facility on Lovenox. Continue to monitor sodium levels as she continues to have mild hyponatremia. We will continue rest of medications. Continue to monitor mood and behavior.Planning having patient's caser up involved in discharge planning. Patient planning in progress. Justification for Continued Inpatient Stay: At risk of further decompensation at lower level care.
[2018-02-19] MEDS: LORazepam 1 MG Tablet PO SCH (21:07)
[2018-02-19] MEDS: traZODone 100 MG Tablet PO SCH (21:07)
[2018-02-20] MEDS: Levothyroxine 75 MCG Tablet PO SCH (06:18)
[2018-02-20] MEDS: LORazepam 0.5 MG Tablet PO SCH (08:11)
[2018-02-20] MEDS: Lidocaine 5% Patch T-DERMAL SCH (11:25)
[2018-02-20] MEDS: Ferrous Sulfate 325 MG Tablet PO SCH ×3 (11:42→21:00)
[2018-02-20] MEDS: Potassium Chloride 10 MEQ ER Capsule PO SCH ×2 (11:42→14:41)
[2018-02-20] MEDS: Furosemide 20 MG Tablet PO SCH ×2 (11:42→14:42)
[2018-02-20] MEDS: Enoxaparin Inj 80 MG/0.8 ML Syringe SQ SCH ×3 (11:43→21:28)
[2018-02-20] MEDS: Pantoprazole Sodium 20 MG DR Tablet PO SCH ×3 (11:44→21:28)
[2018-02-20] MEDS: Sodium Chloride 1 GM Tablet PO SCH ×2 (11:44→14:40)
[2018-02-20] MEDS: Senna/Docusate Sodium 8.6/50 MG Tablet PO SCH ×2 (11:44→14:44)
[2018-02-20] MEDS: Metoclopramide 10 MG Tablet PO SCH ×4 (11:44→21:28)
[2018-02-20] MEDS: Polyethylene Glycol 3350 17 GM Packet PO SCH ×2 (11:44→14:44)
[2018-02-20] MEDS: carBAMazepine 100 MG Chewable Tablets PO SCH ×2 (11:45→21:29)
[2018-02-20 12:29] LABS: Calcium 9.9 mg/dL (8.5-10.1); Carbon Dioxide 27.4 meq/L (21.0-32.0); Potassium 4.4 meq/L (3.5-5.1)
--- NOTE | 2018-02-20 13:35 | P.PN ---
Subjective Interval history: Follow-up visit for DVT. Patient seen and examined in the day room, today she is argumentative. Reports that she was told that she needs to take her medications and reports that the nurse has not provided these. Nurse states that patient refused Lovenox today. Physical Exam Vital signs: Vital Signs 02/19/18 16:00 02/20/18 06:38 Temperature 97.6 F 98.1 F Pulse Rate 83 84 Respiratory Rate 17 16 Blood Pressure 129/65 118/58 L Pulse Oximetry 98 96 Intake & Output 02/19/18 02/20/18 02/20/18 18:59 06:59 18:59 Intake Total 0 / 0 Balance 0 / 0 Intake: Oral 0 / 0 Other: Date of Last Bowel Movement 02/17/18 Narrative: GENERAL: This is a well-nourished, well-developed patient, in no apparent distress. SKIN: Warm and dry. HEENT: Normocephalic. Pupils equal round and reactive. Nose without bleeding. Airway patent. NECK: Trachea midline. CARDIOVASCULAR: Regular rate and rhythm without murmurs, gallops, or rubs. RESPIRATORY: Clear to auscultation. Breath sounds equal bilaterally. No wheezes , rales, or rhonchi. GASTROINTESTINAL: Abdomen soft, non-tender, nondistended. Bowel Sounds normoactive x4. MUSCULOSKELETAL: Extremities without clubbing, cyanosis. Right lower extremity Trace edema. NEUROLOGICAL: Awake and alert. No focal neuro deficit. Moves all extremities. Pressured speech. Results - Labs CBC & Chem 7: 02/15/18 08:38 02/20/18 11:28 Laboratory Results - last 24 hr 02/20/18 02/20/18 11:28 11:28 Sodium 133 L Potassium 4.4 Chloride 97 L Carbon Dioxide 27.4 Anion Gap 9 BUN 13 Creatinine 0.80 Estimated GFR 75 L Random Glucose 100 Calcium 9.9 D Carbamazepine 4.6 Assessment and Plan - Assessment (1) Abdominal pain Code(s): R10.9 - Unspecified abdominal pain (2) Bipolar affective, manic, severe w/ psych Code(s): F31.2 - Bipolar disorder, current episode manic severe with psychotic features Status: Acute (3) Diabetes type 2, controlled Code(s): E11.9 - Type 2 diabetes mellitus without complications Status: Acute (4) Hypothyroidism Code(s): E03.9 - Hypothyroidism, unspecified Status: Acute - Plan 52-year-old female with past medical history significant for DM2, hyponatremia, chronic constipation, on Xarelto for possible DVT versus ischemic colitis, bipolar DO admitted on 01/16 due to hyponatremia and acute manic episode. [facility] reconsulted for evaluation of lower extremity edema as well as chest pain. Lower extremity edema, possible cellulitis -Patient on Xarelto for reported DVT or ischemic colitis, patient is poor historian. No documented imaging in [facility] EMR of DVT or ischemic colitis. Patient reports DVT Dx [facility] about 4 weeks ago. - LE US with noted nonocclusive thrombus within right proximal and distal femoral vein and profundus vein. -Hematology consulted, greatly appreciate assistance. Noted significant interactions with patient's psychotropics as well as Xarelto. Currently on therapeutic dose of Lovenox until possible alternative psychotropics are established. - Discussed with , limitations exist due to patients allergy to medications. Not sure if hematology would consider IVC filter. - Continue subq Lovenox unless okay to DC or switch per hematology. Potential placement in the next few days however facility no will not administer subq Lovenox, patient unreliable. - Continue Lasix, edema improved. Iron deficiency normocytic anemia -Hematology has started patient on iron supplementation -Stool for occult blood negative Diabetes mellitus, stable -Continue Metformin 500 mg twice daily. - Follow up with PCP in 3 months, may cont to lower dose Hyponatremia -Continue Na supplementation, levels stable. Atypical chest pain Epigastric discomfort -Patient reports similar symptoms with nausea and vomiting previously. -EKG reviewed, normal sinus rhythm with no acute changes noted compared to prior EKG -Troponin negative, CKMB mildly elevated at 5.1 likely secondary to patient's pacing around the halls, repeat enzymes negative, repeat EKG with normal sinus rhythm. -Continue Protonix twice daily. -No complaints of pain resolved. DVT prophylaxissubcu Lovenox Discussed Condition With: Patient and RN
--- NOTE | 2018-02-20 14:41 | P.PNPSY ---
Subjective Chief Complaint: Bipolar I Disorder - current Manic Episode Remarks: Patient seen for follow-up, chart reviewed. Discussion with nursing staff reported that patient patient is more was irritable and labile and had threw coffee on staff noted to be demanding and refused medications this morning. Patient was found eating lunch in day room able to interact with interview seen with medical student. Patient states that she had not gotten upset this morning with staff and had refuse her medications due to her being upset. She is mentioning having some chest pain earlier this morning along with poor sleep less evening. Patient noted to be more labile today and continues to be tangential require redirection back to topic during interview. Continues with intrusiveness but lessening. Review of Systems All other systems reviewed negative except as stated in HPI Mental Status Examination Appearance: Appropriate Consciousness: Alert Orientation: Person, Place, Situation Motor Activity: Normal gait Speech: Unremarkable Language: Adequate Fund of Knowledge: Adequate Attention and Concentration: Easily distracted (Lessening) Memory: Immediate (intact), Recent (intact) Mood: Irritable Affect: Labile Thought Process & Associations: Loose associations (At times), Tangential ( Lessening) Thought Content: Preoccupations (With going home) Hallucination Type: None Delusion Type: Paranoid (with staff) Suicidal Ideation: No Suicidal Plan: No Suicidal Intention: No Homicidal Ideation: No Homicidal Plan: No Homicidal Intention: No Insight: Fair (Recognizes that she is currently having a Manic Episode and wants medical treatment for her current state) Judgment: Impulsive Assessment and Plan - Assessment (1) Bipolar affective, manic, severe w/ psych Code(s): F31.2 - Bipolar disorder, current episode manic severe with psychotic features Status: Acute (2) Cannabis abuse Code(s): F12.10 - Cannabis abuse, uncomplicated Status: Acute - Plan Plan: Patient continues with labile mood, poor impulse control, noted with increased irritability. EKG ordered for recent report of chest pain. Recent lab shows continued hyponatremia. Will continue to monitor sodium levels. Will continue to increase carbamazepine to 400mg am/ 450mg hs, continue rest of medications. Continue to monitor mood and behavior. Will continue to wait for recommendations from medical team for oral anticoagulant as patient will not be able to return back to the [facility] with lovenox. Consider continuation of titration of abilify over the weekend. Discharge planning in progress. Justification for Continued Inpatient Stay: At risk for further decompensation at lower level of care.
[2018-02-20] MEDS: Acetaminophen 325 MG Tablet PO PRN (14:46)
[2018-02-20] MEDS: LORazepam 1 MG Tablet PO SCH (21:00)
[2018-02-20] MEDS: traZODone 100 MG Tablet PO SCH (21:28)
[2018-02-21] MEDS: Levothyroxine 75 MCG Tablet PO SCH (05:17)
[2018-02-21] MEDS: LORazepam 0.5 MG Tablet PO SCH (10:14)
[2018-02-21] MEDS: Furosemide 20 MG Tablet PO SCH (10:15)
[2018-02-21] MEDS: Lidocaine 5% Patch T-DERMAL SCH (10:15)
[2018-02-21] MEDS: Potassium Chloride 10 MEQ ER Capsule PO SCH (10:15)
[2018-02-21] MEDS: Ferrous Sulfate 325 MG Tablet PO SCH ×2 (10:15→21:41)
[2018-02-21] MEDS: Pantoprazole Sodium 20 MG DR Tablet PO SCH ×2 (10:16→21:38)
[2018-02-21] MEDS: Polyethylene Glycol 3350 17 GM Packet PO SCH (10:16)
[2018-02-21] MEDS: Senna/Docusate Sodium 8.6/50 MG Tablet PO SCH (10:16)
[2018-02-21] MEDS: Sodium Chloride 1 GM Tablet PO SCH (10:16)
[2018-02-21] MEDS: Enoxaparin Inj 80 MG/0.8 ML Syringe SQ SCH ×2 (10:16→21:44)
[2018-02-21] MEDS: Metoclopramide 10 MG Tablet PO SCH ×4 (10:16→21:38)
[2018-02-21] MEDS: carBAMazepine 100 MG Chewable Tablets PO SCH ×2 (10:17→21:43)
--- NOTE | 2018-02-21 14:53 | P.PNPSY ---
Subjective Chief Complaint: Bipolar I Disorder - current Manic Episode Remarks: Reviewed electronic medical records and discussed case with staff. Follow-up was conducted in the day room with FRED Torres present. Patient has been observed while I have been on the unit being intrusive, labile, and manic. She has alternately attempted to trap her nurse in her room by blocking the door with her body and refusing to let her leave, grabbing on to other patients, and yelling and crying. It is believed that she is acting out in an attempt to be placed on the 2700 unit as she seems to have a romantic interest to they are. It became necessary to administer 2 mg IM Ativan as her running around the unit poses a risk to the other patients on this unit. She was placed in seclusion. Mental Status Examination Appearance: Appropriate Consciousness: Alert Orientation: Person, Place, Situation Motor Activity: Normal gait Speech: Unremarkable Language: Adequate Fund of Knowledge: Adequate Attention and Concentration: Easily distracted (Lessening) Memory: Immediate (intact), Recent (intact) Mood: Irritable Affect: Labile Thought Process & Associations: Loose associations (At times), Tangential ( Lessening) Thought Content: Preoccupations (With going home) Hallucination Type: None Delusion Type: Paranoid (with staff) Suicidal Ideation: No Suicidal Plan: No Suicidal Intention: No Homicidal Ideation: No Homicidal Plan: No Homicidal Intention: No Insight: Fair (Recognizes that she is currently having a Manic Episode and wants medical treatment for her current state) Judgment: Impulsive Assessment and Plan - Assessment (1) Bipolar affective, manic, severe w/ psych Code(s): F31.2 - Bipolar disorder, current episode manic severe with psychotic features Status: Acute - Plan Plan: Patient will be reevaluated by the attending psychiatrist. Continue with current treatment plan. Justification for Continued Inpatient Stay: Moving this patient to a less restrictive environment would likely result in decompensation.
--- NOTE | 2018-02-21 16:14 | ECG ---
Date Performed: 02/20/2018 Time Performed: 15:43:21 PTAGE: 52 years EKG: Sinus rhythm NORMAL ECG PREVIOUS TRACING : 02/05/2018 20.11 Since the previous tracing, no significant change noted DOCTOR: Saeed Tinoco Interpretating Date/Time 02/21/2018 16:12:25
[2018-02-21] MEDS: traZODone 100 MG Tablet PO SCH (21:38)
[2018-02-21] MEDS: LORazepam 1 MG Tablet PO SCH (22:28)
[2018-02-22] MEDS: Levothyroxine 75 MCG Tablet PO SCH (05:17)
[2018-02-22] MEDS: Acetaminophen 325 MG Tablet PO PRN (05:17)
--- NOTE | 2018-02-22 08:04 | P.PNPSY ---
Subjective Chief Complaint: Bipolar I Disorder - current Manic Episode Remarks: Reviewed electronic record and discussed with nursing staff. Rounded with FRED Cardozo. Patient in common area organizing papers to discuss with staff. She is emotional and crying intermittently. She is intrusive of other patients . Mental health techs state that she attempted to swing at other patients. She is oppositional and unable to focus. At this time she is redirectable. Yesterday she required ETOs. Review of Systems All other systems reviewed negative except as stated in HPI Mental Status Examination Appearance: Appropriate Consciousness: Alert Orientation: Person, Place, Situation Motor Activity: Normal gait Speech: Unremarkable Language: Adequate Fund of Knowledge: Adequate Attention and Concentration: Easily distracted (Lessening) Memory: Immediate (intact), Recent (intact) Mood: Oppositional, Irritable, Manic Affect: Sad Thought Process & Associations: Loose associations (At times), Tangential ( Lessening) Thought Content: Preoccupations (With going home) Hallucination Type: None Delusion Type: Paranoid (with staff) Suicidal Ideation: No Suicidal Plan: No Suicidal Intention: No Homicidal Ideation: No Homicidal Plan: No Homicidal Intention: No Insight: Fair (Recognizes that she is currently having a Manic Episode and wants medical treatment for her current state) Judgment: Impulsive Assessment and Plan - Assessment (1) Bipolar affective, manic, severe w/ psych Code(s): F31.2 - Bipolar disorder, current episode manic severe with psychotic features Status: Acute - Plan Plan: Patient will be reevaluated by the attending psychiatrist. Continue with current treatment plan. Justification for Continued Inpatient Stay: Moving patient to a less restrictive environment may result in her decompensation.
[2018-02-22] MEDS: LORazepam 0.5 MG Tablet PO SCH ×2 (09:41→12:43)
[2018-02-22] MEDS: Potassium Chloride 10 MEQ ER Capsule PO SCH ×2 (09:41→12:43)
[2018-02-22] MEDS: Ferrous Sulfate 325 MG Tablet PO SCH ×3 (09:41→22:12)
[2018-02-22] MEDS: Furosemide 20 MG Tablet PO SCH ×2 (09:42→12:43)
[2018-02-22] MEDS: Lidocaine 5% Patch T-DERMAL SCH (10:05)
[2018-02-22] MEDS: Pantoprazole Sodium 20 MG DR Tablet PO SCH ×3 (10:06→22:12)
[2018-02-22] MEDS: Sodium Chloride 1 GM Tablet PO SCH (10:06)
[2018-02-22] MEDS: Senna/Docusate Sodium 8.6/50 MG Tablet PO SCH (10:06)
[2018-02-22] MEDS: Enoxaparin Inj 80 MG/0.8 ML Syringe SQ SCH ×2 (10:06→22:12)
[2018-02-22] MEDS: Metoclopramide 10 MG Tablet PO SCH ×4 (10:06→22:12)
[2018-02-22] MEDS: Polyethylene Glycol 3350 17 GM Packet PO SCH (10:06)
[2018-02-22] MEDS: carBAMazepine 100 MG Chewable Tablets PO SCH ×2 (10:07→22:13)
--- NOTE | 2018-02-22 12:48 | P.PN ---
Subjective Interval history: Follow-up visit for DVT. Patient seen and examined ambulating in the [facility], continues to be intrusive and yesterday required seclusion and ETO's due to behavior. Denies any pain or discomfort, leg swelling has resolved, patient reports legs are doing well and walks off dancing. Physical Exam Vital signs: Vital Signs 02/21/18 18:00 02/22/18 05:49 Temperature 98.1 F 98 F Pulse Rate 72 90 Respiratory Rate 16 16 Blood Pressure 101/55 L 111/50 L Pulse Oximetry 93 L 94 L Intake & Output 02/21/18 02/22/18 02/22/18 18:59 06:59 18:59 Intake Total 340 / 340 Balance 340 / 340 Intake: Oral 240 / 240 Oral Supplement 100 / 100 Other: # Voids 2 Date of Last Bowel Movement 02/21/18 02/21/18 # Bowel Movements 0 Narrative: GENERAL: This is a well-nourished, well-developed patient, in no apparent distress. SKIN: Warm and dry. HEENT: Normocephalic. Pupils equal round and reactive. Nose without bleeding. Airway patent. NECK: Trachea midline. CARDIOVASCULAR: Regular rate and rhythm without murmurs, gallops, or rubs. RESPIRATORY: Clear to auscultation. Breath sounds equal bilaterally. No wheezes , rales, or rhonchi. GASTROINTESTINAL: Abdomen soft, non-tender, nondistended. Bowel Sounds normoactive x4. MUSCULOSKELETAL: Extremities without clubbing, cyanosis. No edema noted on legs. NEUROLOGICAL: Awake and alert. No focal neuro deficit. Moves all extremities. Pressured speech. Results - Labs CBC & Chem 7: 02/15/18 08:38 02/20/18 11:28 Assessment and Plan - Assessment (1) Abdominal pain Code(s): R10.9 - Unspecified abdominal pain (2) Bipolar affective, manic, severe w/ psych Code(s): F31.2 - Bipolar disorder, current episode manic severe with psychotic features Status: Acute (3) Diabetes type 2, controlled Code(s): E11.9 - Type 2 diabetes mellitus without complications Status: Acute (4) Hypothyroidism Code(s): E03.9 - Hypothyroidism, unspecified Status: Acute - Plan 52-year-old female with past medical history significant for DM2, hyponatremia, chronic constipation, on Xarelto for possible DVT versus ischemic colitis, bipolar DO admitted on 01/16 due to hyponatremia and acute manic episode. [facility] reconsulted for evaluation of lower extremity edema as well as chest pain. Right LE DVT -Patient on Xarelto for reported DVT or ischemic colitis, patient is poor historian. No documented imaging in [facility] EMR of DVT or ischemic colitis. Patient reports DVT Dx [facility]. - LE US with noted nonocclusive thrombus within right proximal and distal femoral vein and profundus vein. -Hematology consulted, greatly appreciate assistance. Noted significant interactions with patient's psychotropics as well as Xarelto. Currently on therapeutic dose of Lovenox until possible alternative psychotropics are established. -Patient with significant psychotropic allergies, continues on Tegretol which interacts with NOAC's. ? if hematology would consider IVC filter. - Continue subq Lovenox unless okay to DC or switch per hematology. - Continue Lasix, edema improved. Iron deficiency normocytic anemia -Continue iron supplementation -Stool for occult blood negative Diabetes mellitus, stable -Continue Metformin 500 mg twice daily. - Follow up with PCP in 3 months, may cont to lower dose Hyponatremia -Continue Na supplementation, levels stable. Bipolar disorder - Treatment plan per psych - Discharge to [place] vs [place], [facility] will not be able to administer subq Lovenox, and patient is not reliable to administer herself. DVT prophylaxissubcu Lovenox Discussed Condition With: Patient and RN
[2018-02-22] MEDS: traZODone 100 MG Tablet PO SCH (22:12)
[2018-02-22] MEDS: LORazepam 1 MG Tablet PO SCH (22:12)
[2018-02-23] MEDS: Levothyroxine 75 MCG Tablet PO SCH (06:00)
[2018-02-23] MEDS: Ferrous Sulfate 325 MG Tablet PO SCH (08:32)
[2018-02-23] MEDS: Furosemide 20 MG Tablet PO SCH (08:32)
[2018-02-23] MEDS: Enoxaparin Inj 80 MG/0.8 ML Syringe SQ SCH ×2 (08:32→22:00)
[2018-02-23] MEDS: LORazepam 0.5 MG Tablet PO SCH (08:32)
[2018-02-23] MEDS: Polyethylene Glycol 3350 17 GM Packet PO SCH (08:33)
[2018-02-23] MEDS: Lidocaine 5% Patch T-DERMAL SCH (08:33)
[2018-02-23] MEDS: Senna/Docusate Sodium 8.6/50 MG Tablet PO SCH (08:33)
[2018-02-23] MEDS: Metoclopramide 10 MG Tablet PO SCH ×3 (08:33→17:55)
[2018-02-23] MEDS: Potassium Chloride 10 MEQ ER Capsule PO SCH (08:33)
[2018-02-23] MEDS: Pantoprazole Sodium 20 MG DR Tablet PO SCH (08:33)
[2018-02-23] MEDS: Sodium Chloride 1 GM Tablet PO SCH (08:33)
[2018-02-23] MEDS: carBAMazepine 100 MG Chewable Tablets PO SCH (08:33)
--- NOTE | 2018-02-23 09:53 | P.TTN ---
- Patient Problems Problems: 1. Discharge planning 2. Medication compliance 3. Knowledge deficit 4. Lack of coping skills - Progress Toward Goals Provider Present: Dr. Amparo Dodson (February 02, 2018 patient's shelley is softening, Dr. Dodson intends to remove the one-on-one, titrating medications, patient remains for further stabilization. February 04, 2018 patient remains manic, irritable, and needs to remain for further stabilization.) Provider Input: 02/23: Pt, over this weekend, has refused all medications. Pt is currently 1:1 per her instability. Pt currently has DVT. Options include pt to accept medication for recommended tx, ECT via court order, [facility]. Isaac, counselor, to follow [facility] and with pt to return to court [place] for court to rule on ECT as option. 02/18/18: Pt is being titrated on Lorazepam and Tegretal with subcutaneous Lovenox an impediment to pt being placed in [facility]. Pt does not currently meet SNF placement, OTR consults with Therapy Dept to confirm pt not meeting SNF status. MD to consult with hemotologist re: options for Lovenox (ie: P.O. medication) to increase dc options. 02/16/18: pt continuing medication; patient is continuing to slowly stabalize, continue medication mangement. heel caser is continuing to work on locating safe placement for [facility] - at this time reviewing [facility]. 02/11/18 : pt currently on tegretal 350 BID; pt is slowly stabilizing, further medication adjustments limited relative to pt's elevated sodium issues. Pt's sister has indicated she would like pt to remain at [facility] until pt is stabilized so pt can return to [facility]. Pt continues to meet in-pt criteria. 02/09/18 : Pt continues to be manic, hyperverbal, intrusive and needs to remain for further stabilization. Tegrertal being titrated. Collateral from pt's sister is that pt continues to exhibit shelley. 01/28: Adjusting and increasing pt's medications today, pt is homeless, case management is working on placement to [facility], watch water intake due to decrease in sodium Nurse(s) Present: Agnieszka Nurse Input: 02/16/18: pt continuing hyperverbal, pt continuing to socialize, rapid pressure speech and is continuing to be medication compliant. 01/28: Pt remains manic, hyperverbal, religiously preoccupied, rapid pressured speech, med compliant Psychiatric Counselors Present: Isaac Lentz Jr., [facility] (Counselor spoke with Alice from [facility]. Alice is requesting the patient will return to their facility upon discharge), Steffanie Liz, [facility] Psychiatric Therapist Input: 02/16/18: pt is improving slowly, heel caser is to work on finding different placement, at this time reviewing [facility], as of Friday02/13/18 pt was still improving per provider. 02/09/18: Pt plof was [facility], current plan is for pt to return when stabilized. Pt currrently meets criteria for in-pt status. Group Spec/RT/OT/BARRERA Present: Litzy Santacruz, GPS, HOLLY Ratliff ( Patient attends select groups and is redirectable.), Rasta Archibald, OT, Stanislaw Lin BARRERA (February 02, 2018 patient attends select groups and is redirectable) Group Spec/RT/OT/BARRERA Input: 02/23: Pt continues to participate in most groups, she is able to be appropriate but continues to act intrusively, requiring frequent redirection. 02/18/18: Pt ontinues to participate in groups, patient continues looking forward to socialization and participation but she continues to moderately intrusive and hyperverbal. 02/16/18: pt continues to participate in groups, patient continues looking forward to socialization and participation. 02/11/18: Pt attends most groups lately but she continues to moderately intrusive and hyperverbal, she is consistently in other people's business. Pt is redirectable with moderate effort, she is able to exercise more self-control though still needs external cuing to do so. 02/09/18: Pt attends select groups, she is intrusive, hyperverbal, needs repeated, nearly constant re -direction. 01/28: Pt attends select groups with 1:1 and constant redirection to remain quiet, focused, seated. Manic, intrusive, hyperverbal, increase in participation noted, pt is able to complete simple tasks Clinical Coordinator: Tasha Mathews [facility] Additional Input: 02/23: Isaac, counselor, to follow up with [facility] and with pt to return to court [place] for court to rule on ECT as option. 02/11/18: Pt's sister has indicated she would like pt to remain at [facility] until pt is stabilized so pt can return to [facility]. Pt continues to meet in-pt criteria. 02/09/18: Pt plof was [facility], current plan is for pt to return when stabilized. Pt currrently meets criteria for in-pt status. - Discharge Plan Other (Further evaluation for [facility] placement - at this time reviewing opportunity for [facility]) 02/18/18: Pt does not currently meet SNF placement, OTR consults with Therapy Dept to confirm pt not meeting SNF status. MD to consult with hemotologist re: options for Lovenox (ie: P.O. medication) to increase dc options. 02/11/18: Pt's sister has indicated she would like pt to remain at [facility] until pt is stabilized so pt can return to [facility]. Pt continues to meet in-pt criteria. 01/28: Pt discharge planning in progress with placement to [facility] - Documentation Teaching Recipient: Patient
--- NOTE | 2018-02-23 11:30 | P.CONPSY ---
Provisional Diagnosis Admission Date: January 16, 2018 18:54 [place].: Bipolar disorder current episode manic severe with psychotic features History of Present Illness Service: Psychiatry Consult date: 02/23/18 Requesting Physician: Dejan Dodson Reason for Consult: Second opinion petition Kumar act and second opinion petition ECT Primary Care Provider: UNKNOWN Chief Complaint: "I am upset because they will not give me what I want ". History of Present Illness: Patient is a 52-year-old white female initially admitted to Dr. Dodson service for treatment of her bipolar disorder she was allowed to sign voluntary. However over the past 7-10 days her shelley has increased in its severity of its intensity and duration was a marked degree of hypersexuality with this. In consideration of her noncompliance with medication and the extensive list of allergic reactions to psychotropics Dr. Dodson felt that the patient would need the option of ECT to treat this devastating disease. Thus she is first initiated the Kumar act. He has done the first opinion petition supporting the Kumar act I agree with that thus I will cosign second opinion petition supporting Kumar act. Considering the list of allergies Dr. Dodson also feels that ECT might be a viable effective alternative for this patient as he has initiated petition for ECT through [employer]. He has done a first opinion petition supporting that. I agree with that also patient does meet criteria for the use of ECT to treat her significant shelley. Patient seen by me related to this she remains loud and tense with rapid pressured speech quite hypersexual , flirty, intrusive, to the point she is at exposure to self over the weekend to floor staff. Also to the point where she is not on a one-to-one. Thus I am going to cosign first opinion petition supporting Kumar act and first opinion petition supporting ECT Review of Systems All other systems reviewed negative except as stated in HPI PMFSH - History History Provided By: Patient - Medical History Medical History: Medical History (Last Reviewed 02/05/18 @ 18:14 by Darinel Fisher MD) Anemia Bipolar 1 disorder Depression Hyperlipidemia Hypertension Hypothyroid Schizophrenia - Surgical History Surgical History: Surgical History (Last Updated 02/05/18 @ 18:14 by Darinel Fisher MD) Hx of tonsillectomy - Family History Family History: Family History (Last Reviewed 01/17/18 @ 18:19 by Winston Ely, DO) Other Family history unknown - Tobacco History Second Hand Smoke Exposure: No Smoking Status: Never smoker - Alcohol History How Often Do You Have a Drink Containing Alcohol: 4 or more times a week - Substance Use History Substance History: Unable to Obtain - Immunization History Tetanus Immunization: Unsure Hx Influenza Vaccine This Season: Yes Medications and Allergies Active Medications: Active Medications Acetaminophen (Tylenol) 650 mg PO Q4H PRN PRN Reason: Pain 1-5 or Temp >101F Last Admin: 02/22/18 05:17 Dose: 650 mg Al Hydrox/Mg Hydrox/Simethicone (Mag-Al Plus Susp Liq) 30 ml PO Q6H PRN PRN Reason: DYSPEPSIA Last Admin: 02/06/18 12:31 Dose: 30 ml Al Hydroxide/Mg Hydroxide (Milk Of Magnesia Liq) 30 ml PO Q12H PRN PRN Reason: Mild Constipation Last Admin: 02/11/18 05:20 Dose: 30 ml Aripiprazole (Abilify) 20 mg PO HS [facility] Last Admin: 02/22/18 22:11 Dose: Not Given Atorvastatin Calcium (Lipitor) 40 mg PO DAILY [facility] Last Admin: 02/23/18 08:33 Dose: Not Given Carbamazepine (Tegretol Chewable) 400 mg PO DAILY [facility] Last Admin: 02/23/18 08:33 Dose: Not Given Carbamazepine (Tegretol Chewable) 450 mg PO HS [facility] Last Admin: 02/22/18 22:13 Dose: Not Given Dextrose (D50w Vial) 50 ml IV.PUSH UNSCH PRN PRN Reason: PER HYPOGLYCEMIA PROTOCOL Enoxaparin Sodium (Lovenox Inj) 80 mg SQ Q12HR [facility] Last Admin: 02/23/18 08:32 Dose: 80 mg Ferrous Sulfate (Ferosul) 325 mg PO BID [facility] Last Admin: 02/23/18 08:32 Dose: Not Given Furosemide (Lasix) 20 mg PO DAILY [facility] Last Admin: 02/23/18 08:32 Dose: 20 mg Glucagon (Glucagon Inj) 1 mg OTHER PRN PRN PRN Reason: for Hypoglycemia Protocol Levothyroxine Sodium (Synthroid) 75 mcg PO DAILY@0600 [facility] Last Admin: 02/23/18 06:00 Dose: Not Given Lidocaine HCl (Lidoderm 5% Patch.12 Hr) 1 patch T-DERMAL DAILY [facility] Last Admin: 02/23/18 08:33 Dose: Not Given Lorazepam (Ativan) 1 mg PO HS [facility] Last Admin: 02/22/18 22:12 Dose: Not Given Lorazepam (Ativan) 0.5 mg PO DAILY [facility] Last Admin: 02/23/18 08:32 Dose: 0.5 mg Metformin HCl (Glucophage) 500 mg PO BIDPC [facility] Last Admin: 02/23/18 08:32 Dose: Not Given Metoclopramide HCl (Reglan) 5 mg PO QID [facility] Last Admin: 02/23/18 08:33 Dose: Not Given Miscellaneous (Pill Splitter) 1 each OTHER UNSCH PRN PRN Reason: PILL SPLITTER Last Admin: 02/17/18 00:25 Dose: 1 each Multivitamins (Theragran) 1 tab PO DAILY [facility] Last Admin: 02/23/18 08:33 Dose: Not Given Olanzapine (Zyprexa Inj) 10 mg IM DAILY [facility] Last Admin: 02/23/18 08:32 Dose: 10 mg Padimate O (Chapstick) 1 applicatio TOPICAL UNSCH PRN PRN Reason: Dry lips Last Admin: 02/20/18 04:39 Dose: 1 applicatio Pantoprazole Sodium (Protonix) 20 mg PO BID [facility] Last Admin: 02/23/18 08:33 Dose: Not Given Patch Removal (Remove Old Patch) 1 each T-DERMAL HS [facility] Last Admin: 02/22/18 22:12 Dose: Not Given Polyethylene Glycol (Miralax) 17 gm PO DAILY [facility] Last Admin: 02/23/18 08:33 Dose: Not Given Potassium Chloride (Kcl) 10 meq PO DAILY [facility] Last Admin: 02/23/18 08:33 Dose: Not Given Senna/Docusate Sodium (Sarahi-Colace) 1 tab PO DAILY [facility] Last Admin: 02/23/18 08:33 Dose: Not Given Sodium Chloride (Sodium Chloride) 1 gm PO DAILY [facility] Last Admin: 02/23/18 08:33 Dose: Not Given Trazodone HCl (Desyrel) 100 mg PO HS [facility] Last Admin: 02/22/18 22:12 Dose: Not Given Allergies Allergy/AdvReac Type Severity Reaction Status Date / Time divalproex sodium Allergy Severe unknown Verified 01/19/18 17:05 haloperidol [From Haldol] Allergy Unknown UNKNOWN Verified 01/19/18 17:05 lamotrigine Allergy Unknown unknown Verified 01/19/18 17:05 ziprasidone Allergy Unknown unknown Verified 01/19/18 17:05 quetiapine AdvReac Severe Hallucinati Verified 01/19/18 17:05 ons TAPE Allergy Unknown Rash Uncoded 01/14/18 12:58 Home Medications Medication Instructions Recorded Confirmed Type atorvastatin 40 mg PO DAILY 01/14/18 01/14/18 History benztropine 1 mg PO DAILY 01/14/18 01/14/18 History brexpiprazole [Rexulti] 3 mg PO DAILY 01/14/18 01/14/18 History levothyroxine 75 mcg PO DAILY 01/14/18 01/14/18 History metformin 1,000 mg PO BID 01/14/18 01/14/18 History metoclopramide HCl 5 mg PO QID 01/14/18 01/14/18 History multivitamin 1 cap PO QAM 01/14/18 01/14/18 History omeprazole 20 mg PO DAILY 01/14/18 01/14/18 History rivaroxaban [Xarelto] 10 mg PO DAILY 01/14/18 01/14/18 History Exam Vital signs: Vital Signs 02/22/18 17:20 Temperature 98.6 F Pulse Rate 84 Respiratory Rate 16 Blood Pressure 116/82 Pulse Oximetry 100 Intake & Output 02/22/18 02/23/18 02/23/18 18:59 06:59 18:59 Intake Total 460 / 460 Balance 460 / 460 Weight 79.6 kg Intake: Oral 360 / 360 Oral Supplement 100 / 100 Other: # Voids 2 Date of Last Bowel Movement 02/21/18 02/21/18 # Bowel Movements 0 Mental Status Examination Appearance: Appropriate Consciousness: Alert Orientation: Person, Place, Situation Motor Activity: Normal gait Speech: Unremarkable Language: Adequate Fund of Knowledge: Adequate Attention and Concentration: Easily distracted (Lessening) Memory: Immediate (intact), Recent (intact) Mood: Oppositional, Irritable, Manic Affect: Other (Increased range and intensity) Thought Process & Associations: Loose associations (At times), Tangential ( Lessening) Thought Content: Preoccupations (With going home) Hallucination Type: None Delusion Type: Paranoid (with staff) Suicidal Ideation: No Suicidal Plan: No Suicidal Intention: No Homicidal Ideation: No Homicidal Plan: No Homicidal Intention: No Insight: Fair (Recognizes that she is currently having a Manic Episode and wants medical treatment for her current state) Judgment: Impulsive Assessment and Plan - Assessment (1) Bipolar affective, manic, severe w/ psych Code(s): F31.2 - Bipolar disorder, current episode manic severe with psychotic features Status: Acute (2) Cannabis abuse Code(s): F12.10 - Cannabis abuse, uncomplicated Status: Acute - Plan Plan: Patient does not meet criteria for involuntary psychiatric hospitalization under the Kumar act and thus will cosign second opinion petition sporting Kumar act. Patient also meets criteria for ECT treatment this SECOND OPINION PETITION SUPPORTING Justification for Continued Inpatient Stay: At this time patient with decompensated placed on a lower level of care
[2018-02-23] MEDS ORDERED: Chlorpromazine Inj 50 MG/2 ML Ampule IM ONE ×2 (11:45→14:00)
--- NOTE | 2018-02-23 14:59 | P.PN ---
Subjective Interval history: Follow-up visit for DVT. Patient is seen and examined in her room. Nurse reports patient has remained in 2500 unit with one-on-one due to how disruptive she is being with other patients. Patient with disorganized thoughts, unable to redirect, states that she prays. Nurse reports that patient has been refusing medications, and requires ETO's. Physical Exam Vital signs: Vital Signs 02/22/18 17:20 Temperature 98.6 F Pulse Rate 84 Respiratory Rate 16 Blood Pressure 116/82 Pulse Oximetry 100 Intake & Output 02/22/18 02/23/18 02/23/18 18:59 06:59 18:59 Intake Total 460 / 460 Balance 460 / 460 Weight 79.6 kg Intake: Oral 360 / 360 Oral Supplement 100 / 100 Other: # Voids 2 Date of Last Bowel Movement 02/21/18 02/21/18 # Bowel Movements 0 Narrative: GENERAL: This is a well-nourished, well-developed patient, in no apparent distress. SKIN: Warm and dry. HEENT: Normocephalic. Pupils equal round and reactive. Nose without bleeding. Airway patent. NECK: Trachea midline. CARDIOVASCULAR: Regular rate and rhythm without murmurs, gallops, or rubs. RESPIRATORY: Clear to auscultation. Breath sounds equal bilaterally. No wheezes , rales, or rhonchi. GASTROINTESTINAL: Abdomen soft, non-tender, nondistended. Bowel Sounds normoactive x4. MUSCULOSKELETAL: Extremities without clubbing, cyanosis. Right leg edema worse. NEUROLOGICAL: Awake and alert. No focal neuro deficit. Moves all extremities. Pressured speech. Results - Labs CBC & Chem 7: 02/15/18 08:38 02/23/18 10:39 Laboratory Results - last 24 hr 02/23/18 10:39 Sodium 136 Assessment and Plan - Assessment (1) Abdominal pain Code(s): R10.9 - Unspecified abdominal pain (2) Bipolar affective, manic, severe w/ psych Code(s): F31.2 - Bipolar disorder, current episode manic severe with psychotic features Status: Acute (3) Diabetes type 2, controlled Code(s): E11.9 - Type 2 diabetes mellitus without complications Status: Acute (4) Hypothyroidism Code(s): E03.9 - Hypothyroidism, unspecified Status: Acute - Plan 52-year-old female with past medical history significant for DM2, hyponatremia, chronic constipation, on Xarelto for possible DVT versus ischemic colitis, bipolar DO admitted on 01/16 due to hyponatremia and acute manic episode. [facility] reconsulted for evaluation of lower extremity edema as well as chest pain. Right LE DVT -Patient on Xarelto for reported DVT or ischemic colitis, patient is poor historian. No documented imaging in [facility] EMR of DVT or ischemic colitis. Patient reports DVT Dx [facility]. - LE US with noted nonocclusive thrombus within right proximal and distal femoral vein and profundus vein. -Hematology consulted, greatly appreciate assistance. Noted significant interactions with patient's psychotropics as well as Xarelto. Currently on therapeutic dose of Lovenox until possible alternative psychotropics are established. -Patient with significant psychotropic allergies, continues on Tegretol which interacts with NOAC's. ? if hematology would consider IVC filter. - Continue subq Lovenox unless okay to DC or switch per hematology. - Continue Lasix, edema slight worse today, continue to monitor. Intermittently compliant with medications. Iron deficiency normocytic anemia -Continue iron supplementation -Stool for occult blood negative Diabetes mellitus, stable -Continue Metformin 500 mg twice daily. - Follow up with PCP in 3 months, may cont to lower dose Hyponatremia -Continue Na supplementation, levels stable. Bipolar disorder - Treatment plan per psych DVT prophylaxissubcu Lovenox Discussed Condition With: Patient and RN
--- NOTE | 2018-02-23 18:18 | P.PNPSY ---
Subjective Chief Complaint: Bipolar I Disorder - current Manic Episode Remarks: Patient seen for follow-up, chart reviewed. Discussion with nursing staff reported that patient have required multiple ETOs over the weekend, required seclusion as well. Patient was noted to be intrusive, refusing medications for the past few days, disruptive on the units. Patient found with 1:1 sitter, noted to be with labile mood, tangential, flight of ideas and disorganized. Patient noted to be more irritable as well and has had more verbal outburst as well as throwing her food tray several times. Patient required ETO x 2 today due to behavior. Attempt to reach patient's son and daughter multiple times were unsuccessful, leaving generic voicemail for callback to assign them as healthcare surrogate and guardian advocate for the patient as the patient at this time no longer has capacity to consent for treatment. Review of Systems All other systems reviewed negative except as stated in HPI Mental Status Examination Appearance: Appropriate Consciousness: Alert Orientation: Person, Place, Situation Motor Activity: Normal gait Speech: Unremarkable Language: Adequate Fund of Knowledge: Adequate Attention and Concentration: Easily distracted (Lessening) Memory: Immediate (intact), Recent (intact) Mood: Oppositional, Irritable, Manic Affect: Labile, Other (Increased range and intensity) Thought Process & Associations: Loose associations (At times), Disorganized, Tangential (Lessening) Thought Content: Racing thoughts, Preoccupations (With going home) Hallucination Type: None Delusion Type: Paranoid (with staff) Suicidal Ideation: No Suicidal Plan: No Suicidal Intention: No Homicidal Ideation: No Homicidal Plan: No Homicidal Intention: No Insight: Poor Judgment: Poor Assessment and Plan - Assessment (1) Bipolar affective, manic, severe w/ psych Code(s): F31.2 - Bipolar disorder, current episode manic severe with psychotic features Status: Acute (2) Cannabis abuse Code(s): F12.10 - Cannabis abuse, uncomplicated Status: Acute - Plan Plan: Patient this time continues to have worsening of manic symptoms and has refused medications for the past couple of days over the weekend which she has required ETO's due to intrusive behavior or disrobing, intrusive and disruptive on the unit which patient required seclusion over the weekend as well. Patient was noted to be disorganized, irritable and labile along with continued disorganized thought process requiring redirection. Petition for involuntary hospitalization started, second opinion requested. Petition for ECT treatment started a second opinion requested. We will discontinue Abilify, we will continue to encourage patient to maintain adherence to Tegretol, will start Thorazine 50 p.o. twice daily with IM administration if patient refuses p.o. These changes of medications will start after consent is obtained from patient' s daughter as they would need to serve healthcare surrogate and guardian advocate for this admission as patient does not have capacity continue to consent for treatment. We will continue one-to-one observation for safety. We will continue to monitor with behavior. We will attempt to reach patient's daughter and son again. Request for State hospitalization list for state hospitalization started as patient may require further psychiatric stabilization. Discharge planning in progress. Justification for Continued Inpatient Stay: At risk of further decompensation at lower level care.
[2018-02-23] MEDS: LORazepam 1 MG Tablet PO SCH (21:45)
[2018-02-24] MEDS: Ferrous Sulfate 325 MG Tablet PO SCH ×3 (01:00→20:49)
[2018-02-24] MEDS: traZODone 100 MG Tablet PO SCH ×2 (01:00→21:13)
[2018-02-24] MEDS: Pantoprazole Sodium 20 MG DR Tablet PO SCH ×3 (01:01→21:13)
[2018-02-24] MEDS: Metoclopramide 10 MG Tablet PO SCH ×5 (01:01→20:50)
[2018-02-24] MEDS: carBAMazepine 100 MG Chewable Tablets PO SCH ×3 (01:03→20:48)
[2018-02-24] MEDS: Levothyroxine 75 MCG Tablet PO SCH (06:37)
[2018-02-24] MEDS ORDERED: Chlorpromazine Inj 50 MG/2 ML Ampule IM SCH (08:30)
[2018-02-24] MEDS: Enoxaparin Inj 80 MG/0.8 ML Syringe SQ SCH ×2 (08:37→21:13)
[2018-02-24] MEDS ORDERED: Chlorpromazine Inj 50 MG/2 ML Ampule IM ONE (08:45)
[2018-02-24] MEDS: Potassium Chloride 10 MEQ ER Capsule PO SCH (08:50)
[2018-02-24] MEDS: LORazepam 0.5 MG Tablet PO SCH (08:50)
[2018-02-24] MEDS: Furosemide 20 MG Tablet PO SCH (08:50)
[2018-02-24] MEDS: Polyethylene Glycol 3350 17 GM Packet PO SCH (08:51)
[2018-02-24] MEDS: Senna/Docusate Sodium 8.6/50 MG Tablet PO SCH (08:51)
[2018-02-24] MEDS: Lidocaine 5% Patch T-DERMAL SCH (08:51)
[2018-02-24] MEDS: Sodium Chloride 1 GM Tablet PO SCH (08:51)
--- NOTE | 2018-02-24 13:53 | P.PN ---
Subjective Interval history: Follow-up visit for DVT. Spoke with nurse reports patient continues to be on one-on-one observation due to behavior. Patient required ETO's overnight. She is seen in her room dancing, does not follow a clear conversation, scattered thoughts. Does not voice any acute concern or complaint. Physical Exam Vital signs: Vital Signs 02/23/18 16:14 02/24/18 05:40 Temperature 98.3 F 97 F L Pulse Rate 93 H 120 H Respiratory Rate 17 16 Blood Pressure 146/73 H 156/82 H Pulse Oximetry 96 95 Intake & Output 02/23/18 02/24/18 02/24/18 18:59 06:59 18:59 Intake Total 240 / 240 340 / 340 Balance 240 / 240 340 / 340 Intake: Oral 240 / 240 240 / 240 Oral Supplement 100 / 100 Other: # Voids 3 1 # Bowel Movements 0 Narrative: GENERAL: This is a well-nourished, well-developed patient, in no apparent distress. SKIN: Warm and dry. NECK: Trachea midline. RESPIRATORY: Respirations unlabored. GASTROINTESTINAL: Obese MUSCULOSKELETAL: Extremities without clubbing, cyanosis. Right leg and foot edema. NEUROLOGICAL: Awake and alert. No focal neuro deficit. Moves all extremities. Pressured speech. Results - Labs CBC & Chem 7: 02/15/18 08:38 02/23/18 10:39 Assessment and Plan - Assessment (1) Abdominal pain Code(s): R10.9 - Unspecified abdominal pain (2) Bipolar affective, manic, severe w/ psych Code(s): F31.2 - Bipolar disorder, current episode manic severe with psychotic features Status: Acute (3) Diabetes type 2, controlled Code(s): E11.9 - Type 2 diabetes mellitus without complications Status: Acute (4) Hypothyroidism Code(s): E03.9 - Hypothyroidism, unspecified Status: Acute - Plan 52-year-old female with past medical history significant for DM2, hyponatremia, chronic constipation, on Xarelto for possible DVT versus ischemic colitis, bipolar DO admitted on 01/16 due to hyponatremia and acute manic episode. [facility] reconsulted for evaluation of lower extremity edema as well as chest pain. Right LE DVT -Patient on Xarelto for reported DVT or ischemic colitis, patient is poor historian. No documented imaging in [facility] EMR of DVT or ischemic colitis. Patient reports DVT Dx [facility]. - LE US with noted nonocclusive thrombus within right proximal and distal femoral vein and profundus vein. -Hematology consulted, greatly appreciate assistance. Noted significant interactions with patient's psychotropics as well as Xarelto. Currently on therapeutic dose of Lovenox until possible alternative psychotropics are established. -Patient with significant psychotropic allergies, continues on Tegretol which interacts with NOAC's. ? if hematology would consider IVC filter. Briefly discussed with hematology [employer]IST. - Continue subq Lovenox unless okay to DC or switch per hematology, or unless patient comes off of Tegretol and there are no medication interactions. - Continue Lasix, edema slightly improved on foot today, continue to monitor. Intermittently compliant with medications. Iron deficiency normocytic anemia -Continue iron supplementation -Stool for occult blood negative Diabetes mellitus, stable -Continue Metformin 500 mg twice daily. - Follow up with PCP in 3 months, may cont to lower dose Hyponatremia -Continue Na supplementation, levels stable. Bipolar disorder - Treatment plan per psych - Psych attempting to reach children for consents on starting Thorazine, but so far unable to reach them. - Request has been place for patient to be treated with ECT and transfer to [facility]. DVT prophylaxissubcu Lovenox Discussed Condition With: Patient, RN and Dr. Dodson.
--- NOTE | 2018-02-24 14:48 | P.PNPSY ---
Subjective Chief Complaint: Bipolar I Disorder - current Manic Episode Remarks: Patient seen for follow-up, chart reviewed. Discussion with nursing staff reported that patient received Ativan last night and slept but this morning started screaming, noted to be very hypersexual making out with the window and again trying her tray when presented with her meals. Patient required ETO of Thorazine 50 mg IM x1 which was able to calm patient down but continues to be noted to be disorganized. Patient was found lying hospital bed with only a pillow covering her and she was disrobed underneath. She was noted to be disorganized and dismissive and at times belligerent during interview. Patient was unable to carry a coherent conversation as she continues with flight of ideas and tangentiality. Attempts to contact patient's son again were unsuccessful by continuity writer and counselor. Patient will present to mental health court tomorrow for involuntary hospitalization as well as request for ECT treatment as pharmacotherapy has not yielded significant improvement in patient' s mood. Patient continues with refusal of most of her medications. Review of Systems All other systems reviewed negative except as stated in HPI Mental Status Examination Appearance: Appropriate Consciousness: Alert Orientation: Person, Place, Situation Motor Activity: Normal gait Speech: Unremarkable Language: Adequate Fund of Knowledge: Adequate Attention and Concentration: Easily distracted (Lessening) Memory: Immediate (intact), Recent (intact) Mood: Oppositional, Irritable, Manic Affect: Labile, Other (Increased range and intensity) Thought Process & Associations: Loose associations (At times), Disorganized, Tangential (Lessening) Thought Content: Racing thoughts, Preoccupations (With going home) Hallucination Type: None Delusion Type: Paranoid (with staff) Suicidal Ideation: No Suicidal Plan: No Suicidal Intention: No Homicidal Ideation: No Homicidal Plan: No Homicidal Intention: No Insight: Poor Judgment: Poor Assessment and Plan - Assessment (1) Bipolar affective, manic, severe w/ psych Code(s): F31.2 - Bipolar disorder, current episode manic severe with psychotic features Status: Acute (2) Cannabis abuse Code(s): F12.10 - Cannabis abuse, uncomplicated Status: Acute - Plan Plan: Patient at this time continues with disorganization, episodes of irritability agitation along with poor impulse control and hypersexual behavior on the unit which she requires ETO to manage symptoms as patient is refusing p.o. medications. Patient has been somewhat compliant with anticoagulant but refusing rest of medications. Plan to start patient on Thorazine and continue Tegretol will require consent from healthcare surrogate which attempts to contact patient's daughter son have been unsuccessful and may require assigning NHI to serve this role. Patient to continue one-to-one observation for safety. We will continue to monitor mood and behavior. Discharge planning in progress. Justification for Continued Inpatient Stay: At risk of further decompensation at lower level care.
[2018-02-24] MEDS: LORazepam 1 MG Tablet PO SCH (21:14)
[2018-02-25] MEDS: Levothyroxine 75 MCG Tablet PO SCH (06:06)
[2018-02-25] MEDS ORDERED: Chlorpromazine Inj 50 MG/2 ML Ampule IM ONE (08:35)
[2018-02-25] MEDS: Potassium Chloride 10 MEQ ER Capsule PO SCH (08:43)
[2018-02-25] MEDS: Ferrous Sulfate 325 MG Tablet PO SCH ×2 (08:43→20:08)
[2018-02-25] MEDS: LORazepam 0.5 MG Tablet PO SCH (08:43)
[2018-02-25] MEDS: Furosemide 20 MG Tablet PO SCH (08:44)
[2018-02-25] MEDS: Lidocaine 5% Patch T-DERMAL SCH (08:44)
[2018-02-25] MEDS: Polyethylene Glycol 3350 17 GM Packet PO SCH (08:55)
[2018-02-25] MEDS: Metoclopramide 10 MG Tablet PO SCH ×4 (08:55→20:09)
[2018-02-25] MEDS: Pantoprazole Sodium 20 MG DR Tablet PO SCH ×2 (08:55→20:09)
[2018-02-25] MEDS: Sodium Chloride 1 GM Tablet PO SCH (08:55)
[2018-02-25] MEDS: carBAMazepine 100 MG Chewable Tablets PO SCH (08:55)
[2018-02-25] MEDS: Senna/Docusate Sodium 8.6/50 MG Tablet PO SCH (08:55)
--- NOTE | 2018-02-25 09:44 | P.PNPSY ---
I was on the 2700 unit and responded to episode of behavioral disturbance by patient. According to staff, patient was transferred from 2500 unit to 2700 unit for a 'time out' secondary to aggressive behavior and threats on 2500 unit. She remains agitated on 2700 unit and is additionally disrobing, putting herself at risk as there are sexually preoccupied males on the unit. I have conferred with Dr. Dodson, who recommends initiation of locked seclusion at this time, which I have ordered. I have evaluated patient [id number] within 1 hour of initiation of seclusion. At the time of my evaluation, patient is laying on the floor of the seclusion room. Speech is tangential and coprolalic. Continue seclusion until safe to discontinue. Case d/w RN.
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
[2018-02-25] MEDS: Enoxaparin Inj 80 MG/0.8 ML Syringe SQ SCH ×2 (15:14→20:09)
[2018-02-25] MEDS: traZODone 100 MG Tablet PO SCH (20:07)
[2018-02-25] MEDS: ChlorproMAZINE 50 MG Tablet PO SCH (20:07)
[2018-02-25] MEDS: LORazepam 1 MG Tablet PO SCH (20:08)
[2018-02-25] MEDS: Chlorpromazine Inj 50 MG/2 ML Ampule IM SCH (21:09)
[2018-02-26] MEDS: Levothyroxine 75 MCG Tablet PO SCH (05:38)
[2018-02-26] MEDS: LORazepam 0.5 MG Tablet PO SCH (08:51)
[2018-02-26] MEDS: Ferrous Sulfate 325 MG Tablet PO SCH ×2 (08:52→20:22)
[2018-02-26] MEDS: Potassium Chloride 10 MEQ ER Capsule PO SCH (08:54)
[2018-02-26] MEDS: Furosemide 20 MG Tablet PO SCH (08:54)
[2018-02-26] MEDS: Lidocaine 5% Patch T-DERMAL SCH (08:55)
[2018-02-26] MEDS: Enoxaparin Inj 80 MG/0.8 ML Syringe SQ SCH ×2 (09:00→20:22)
[2018-02-26] MEDS: Polyethylene Glycol 3350 17 GM Packet PO SCH (09:00)
[2018-02-26] MEDS: Senna/Docusate Sodium 8.6/50 MG Tablet PO SCH (09:01)
[2018-02-26] MEDS: Pantoprazole Sodium 20 MG DR Tablet PO SCH ×2 (09:02→20:28)
[2018-02-26] MEDS: Metoclopramide 10 MG Tablet PO SCH ×4 (09:02→20:23)
[2018-02-26] MEDS: Sodium Chloride 1 GM Tablet PO SCH (09:25)
[2018-02-26] MEDS: ChlorproMAZINE 50 MG Tablet PO SCH ×3 (09:26→20:24)
[2018-02-26] MEDS: Chlorpromazine Inj 50 MG/2 ML Ampule IM SCH ×3 (09:27→20:00)
--- NOTE | 2018-02-26 11:47 | P.PNPSY ---
Subjective Chief Complaint: Bipolar I Disorder - current Manic Episode Remarks: Patient seen for follow-up, chart reviewed. Discussion with nursing staff reported that patient attempted to spit out her medications this morning and required IM administration of medications, no issues overnight slept well continue to be inappropriate sexually preoccupied and disorganized. Patient was found in hallway elated, labile mood, was unable to manage or tolerate interview as she is easily distracted, racing thoughts flight of ideas and continues to be disorganized. Patient was encouraged to maintain adherence to treatment continues to be tangential during interview. Review of Systems All other systems reviewed negative except as stated in HPI Mental Status Examination Appearance: Appropriate Consciousness: Alert Orientation: Person, Place, Situation Motor Activity: Normal gait Speech: Unremarkable Language: Adequate Fund of Knowledge: Adequate Attention and Concentration: Easily distracted (Lessening) Memory: Immediate (intact), Recent (intact) Mood: Manic Affect: Labile, Other (Increased range and intensity) Thought Process & Associations: Loose associations (At times), Disorganized, Tangential (Lessening) Thought Content: Racing thoughts, Delusional Hallucination Type: None Delusion Type: Paranoid Suicidal Ideation: No Suicidal Plan: No Suicidal Intention: No Homicidal Ideation: No Homicidal Plan: No Homicidal Intention: No Insight: Poor Judgment: Poor Assessment and Plan - Assessment (1) Bipolar affective, manic, severe w/ psych Code(s): F31.2 - Bipolar disorder, current episode manic severe with psychotic features Status: Acute (2) Cannabis abuse Code(s): F12.10 - Cannabis abuse, uncomplicated Status: Acute - Plan Plan: Patient is a continued with labile mood, disorganized, intrusive, poor impulse control, sexually preoccupied continues to show at times. We will continue to titrate Thorazine to 50 mg p.o. 3 times daily with IM backup in case she refuses p.o. meds. We will continue rest of medications. Continue to monitor mood and behavior. Discharge planning in progress. Justification for Continued Inpatient Stay: At risk of further decompensation at lower level care.
--- NOTE | 2018-02-26 16:08 | P.PNIM ---
Subjective Interval history: Follow-up DVT, hyponatremia, diabetes mellitus, and bipolar disorder/manic Patient unable to evaluate due to behavioral disturbance and in a seclusion room. With a sitter outside. Nurse reported patient is sexually preoccupied and continued to show at times. Patient observed on the monitor in the seclusion room naked and playing and touching herself. Nurse reported patient refused to take her oral medications,, and spit out her medications. Nurse have to give him IM medications with the Lovenox. Physical Exam Vital signs: Intake & Output 02/25/18 02/26/18 02/26/18 18:59 06:59 18:59 Other: Date of Last Bowel Movement 02/21/18 Narrative: Unable to evaluate due to patient's behavioral disturbance Results - Labs CBC & Chem 7: 02/15/18 08:38 02/23/18 10:39 Assessment and Plan - Assessment (1) Abdominal pain Code(s): R10.9 - Unspecified abdominal pain (2) Bipolar affective, manic, severe w/ psych Code(s): F31.2 - Bipolar disorder, current episode manic severe with psychotic features Status: Acute (3) Diabetes type 2, controlled Code(s): E11.9 - Type 2 diabetes mellitus without complications Status: Acute (4) Hypothyroidism Code(s): E03.9 - Hypothyroidism, unspecified Status: Acute - Plan This is a 52-year-old white female admitted for acute hyponatremia and acute shelley with past medical history of DVT, and diabetes mellitus type 2. Right lower extremity DVT Dependant bilateral lower extremity swelling, improved -Patient on Xarelto for reported DVT or ischemic colitis, patient is poor historian. -No documented imaging in [facility] EMR of DVT or ischemic colitis. -Patient reports DVT Dx [facility] about 4 weeks ago. -LE US with noted nonocclusive thrombus within right proximal and distal femoral vein and profundus vein. -Hematology consulted, greatly appreciate assistance. -Noted significant interactions with patient's psychotropics as well as Xarelto. -Currently on therapeutic dose of Lovenox until possible alternative psychotropics are established. -Discussed with , limitations exist due to patients allergy to medications. Not sure if hematology would consider IVC filter. -Encourage elevation and ambulation -No edema, no redness, no complaints of pain -Continue Lovenox, patient refused to take oral medications Diabetes T2, controlled Monitor sugars, Accu-Chek before meals and at bedtime with insulin sliding scale, may discontinue in 5 days if no coverage needed. -Decrease Metformin 500mg BID, lower dose - home dose 1,000mg -HgbA1c 5.7 -Follow up with PCP in 3 months, may cont to lower dose -Blood glucose fair controlled Hypotonic hyponatremia Improving, stable. -Random urine sodium wnl, urine osmolality low. F/u lithium level. Possible medication induced SIADH vs GI losses -continue Sodium tabs daily. Monitor sodium. Iron deficiency microcytic anemia -Hematology has started patient on iron supplementation. -Stool for occult blood negative -Continue iron supplements, monitor CBC History of/hyperlipidemia/hypothyroidism - continue home medications, atorvastatin, Synthroid - TSH 0.773 -Lipid panel stable Acute shelley/acute psychosis extensive psych hx of schizophrenia and bipolar and long antipsychotic allergy list - lithium level 0.1 mL, UDS negative -Management with psychiatric team DVT prop Lovenox Patient unable to be managed medically until compliance with medications. Code Status: Full code Discussed Condition With: Nurse, and CONSTRUCTION RIGGER
[2018-02-26] MEDS: traZODone 100 MG Tablet PO SCH (20:22)
[2018-02-26] MEDS: LORazepam 1 MG Tablet PO SCH (20:23)
[2018-02-27] MEDS: Levothyroxine 75 MCG Tablet PO SCH ×2 (06:21→06:38)
[2018-02-27] MEDS: Enoxaparin Inj 80 MG/0.8 ML Syringe SQ SCH ×2 (09:08→20:45)
[2018-02-27] MEDS: Potassium Chloride 10 MEQ ER Capsule PO SCH (09:09)
[2018-02-27] MEDS: Ferrous Sulfate 325 MG Tablet PO SCH ×2 (09:09→20:47)
[2018-02-27] MEDS: LORazepam 0.5 MG Tablet PO SCH (09:09)
[2018-02-27] MEDS: Furosemide 20 MG Tablet PO SCH (09:09)
[2018-02-27] MEDS: Lidocaine 5% Patch T-DERMAL SCH (09:09)
[2018-02-27] MEDS: Senna/Docusate Sodium 8.6/50 MG Tablet PO SCH (09:10)
[2018-02-27] MEDS: Pantoprazole Sodium 20 MG DR Tablet PO SCH ×2 (09:10→20:47)
[2018-02-27] MEDS: Polyethylene Glycol 3350 17 GM Packet PO SCH (09:10)
[2018-02-27] MEDS: ChlorproMAZINE 50 MG Tablet PO SCH ×4 (09:11→23:38)
[2018-02-27] MEDS: Sodium Chloride 1 GM Tablet PO SCH (09:11)
[2018-02-27] MEDS: Metoclopramide 10 MG Tablet PO SCH ×4 (09:11→20:47)
[2018-02-27 09:17] LABS: Baso % (Auto) 0.7 % (0.0-2.0); Eos # (Auto) 0.1 th/mm3 (0.0-0.4); Eos % (Auto) 2.6 % (0.0-4.0); Hematocrit 34.9 % (35.0-46.0); Hemoglobin 11.6 gm/dL (11.6-15.3); Lymph # (Auto) 1.4 th/mm3 (1.0-4.8); Lymph % (Auto) 25.9 % (9.0-44.0); Mean Corpuscular HGB Conc 33.1 % (32.0-36.0); Mean Corpuscular Hemoglobin 29.2 pg (27.0-34.0); Mean Corpuscular Volume 88.3 fL (80.0-100.0); Mean Platelet Volume 8.5 fL (7.0-11.0); Mono # (Auto) 0.6 th/mm3 (0.0-0.9); Mono % (Auto) 11.1 % (0.0-8.0); Neut # (Auto) 3.2 th/mm3 (1.8-7.7); Neut % (Auto) 59.7 % (16.0-70.0); Platelet Count 256 th/mm3 (150-450); Red Blood Count 3.96 mil/mm3 (4.00-5.30); Red Cell Distribution Width 15.3 % (11.6-17.2); White Blood Count 5.3 th/mm3 (4.0-11.0)
[2018-02-27 09:56] LABS: Albumin 4.4 g/dL (3.4-5.0); Anion Gap 13 meq/L (5-15); Aspartate Aminotransferase 45 U/L (15-37); Blood Urea Nitrogen 18 mg/dL (7-18); Calcium 9.9 mg/dL (8.5-10.1); Carbon Dioxide 22.9 meq/L (21.0-32.0); Chloride 104 meq/L (98-107); Glomerular Filtration Rate 66 mL/min (>89); Glucose,Random 95 mg/dL (74-106); Potassium 3.6 meq/L (3.5-5.1); Sodium 140 meq/L (136-145)
[2018-02-27 09:59] LABS: Alanine Aminotransferase 48 U/L (10-53); Alkaline Phosphatase 89 U/L (45-117); Total Protein 7.6 g/dL (6.4-8.2)
[2018-02-27] MEDS: Chlorpromazine Inj 50 MG/2 ML Ampule IM SCH ×4 (10:35→23:37)
[2018-02-27 11:30] LABS: Creatine Kinase 195 U/L (26-192)
[2018-02-27 11:47] LABS: CKMB Percent 3.2 % (0.0-4.0); Creatine Kinase MB 6.2 ng/mL (0.5-3.6)
--- NOTE | 2018-02-27 15:55 | P.DIET ---
Nutritional Evaluation Type of nutrition evaluation: initial Nutrition consult regarding: Diet Evaluation Nutrition screening: Poor PO Intake Screening comments: 02/27 [facility] [place] intake Objective - Diagnosis bipolar disoder - Objective Body Mass Index: 25.9 % IBW: 121 (IBW = 145lb) Body Weight Used for Calculations: Actual Energy Needs - Lower Range (kCal/kg): 25 Energy Needs - Upper Range (kCal/kg): 30 Lower Limit kCal/kg (kCals): 1,990 Upper Limit kCal/kg (kCals): 2,388 Lower Limit Protein Factor (Grams per Kg): 1.1 Upper Limit Protein Factor (Grams per Kg): 1.3 Lower Protein Needs (Protein): 88 Upper Protein Needs (Protein): 103 Dietitian Reviewed in Medical Record: Current diet, Curent medications, Intake & Output, Labs, Medical history Diet Order: 1800 ADA Oral Diet Intake Amount: Poor <50% Objective Comments: PMH: anemia, bipolar, depression, HLD, HTN, hypothyroid, schizophrenia Assessment Assessment: Pt currently at nutritional risk r/t reported poor PO intake. Pt is seen to be bipolar in multiple psychiatry notes and does not focus well. Pt consumed mostly 0% of her trays. RD to recommend Glucerna TID as a PO supplement. Will continue to monitor PO and supplement intake. Labs reviewed, dietitian following. Recommendations: 1. RD to recommend Glucerna TID as a PO supplement 2. Will continue to monitor PO and supplement intake 3. Dietitian following Dietitian to Monitor: Lab values, Intake & Output, Diet tolerance, Weight change , PO Intake, Medical course
--- NOTE | 2018-02-27 16:00 | P.PNIM ---
Subjective Interval history: Follow-up DVT, hyponatremia, diabetes mellitus, and bipolar disorder/manic. Patient seen and examined laying in the bed, with clothes on, in the seclusion room with sitter. Patient uncooperative with assessment and hyperactive with verbal communication with some flights of thoughts. Sitter reported patient is more cooperative today as compared to yesterday. Patient took her medications this morning, and more cooperative with the care. Patient denies any pain or shortness of breath, denies any discomfort. When asked if she "ate her breakfast stated she ate everything and then popped out the last one". Patient was laying down front toward and refused to lay on her back. Patient patient very hyperverbal and in appropriate with conversation. Physical Exam Vital signs: Vital Signs 02/27/18 05:48 Temperature 97.8 F Pulse Rate 92 H Blood Pressure 119/58 L Pulse Oximetry 98 Intake & Output 02/26/18 02/27/18 02/27/18 18:59 06:59 18:59 Intake Total 240 / 240 Balance 240 / 240 Intake: Oral 240 / 240 Other: Date of Last Bowel Movement 02/21/18 Narrative: GENERAL: Disheveled female, lying in bed in no apparent distress SKIN: Warm and dry. HEAD: Atraumatic. Normocephalic. CARDIOVASCULAR: Regular rate and rhythm. RESPIRATORY: No accessory muscle use. Clear to auscultation. Breath sounds equal bilaterally. GASTROINTESTINAL: Abdomen soft, non-tender, nondistended. Hepatic and splenic margins not palpable. MUSCULOSKELETAL: Extremities without clubbing, cyanosis, or edema. No obvious deformities. NEUROLOGICAL: Awake and alert and oriented x 2. No obvious cranial nerve deficits. Motor grossly within normal limits. Five out of 5 muscle strength in the arms and legs. Normal speech. PSYCHIATRIC: Hyperactive, hyperverbal and inappropriate mood and affect; insight and judgment poor Results - Labs CBC & Chem 7: 02/27/18 08:14 02/27/18 08:14 Laboratory Results - last 24 hr 02/27/18 02/27/18 02/27/18 08:14 08:14 08:14 WBC 5.3 RBC 3.96 L Hgb 11.6 Hct 34.9 L MCV 88.3 MCH 29.2 MCHC 33.1 RDW 15.3 Plt Count 256 MPV 8.5 Neut % (Auto) 59.7 Lymph % (Auto) 25.9 Dundy % (Auto) 11.1 H Eos % (Auto) 2.6 Baso % (Auto) 0.7 Neut # (Auto) 3.2 Lymph # (Auto) 1.4 Dundy # (Auto) 0.6 Eos # (Auto) 0.1 Baso # (Auto) 0.0 WBC Differential . Differential Comment Auto diff final Sodium 140 Potassium 3.6 Chloride 104 Carbon Dioxide 22.9 Anion Gap 13 BUN 18 Creatinine 0.89 Estimated GFR 66 L Random Glucose 95 Calcium 9.9 Total Bilirubin 0.4 AST 45 H ALT 48 Alkaline Phosphatase 89 Total Creatine Kinase 195 H Cancelled CK-MB (CK-2) 6.2 H CK-MB (CK-2) % 3.2 Total Protein 7.6 Albumin 4.4 Assessment and Plan - Assessment (1) Abdominal pain Code(s): R10.9 - Unspecified abdominal pain (2) Bipolar affective, manic, severe w/ psych Code(s): F31.2 - Bipolar disorder, current episode manic severe with psychotic features Status: Acute (3) Diabetes type 2, controlled Code(s): E11.9 - Type 2 diabetes mellitus without complications Status: Acute (4) Hypothyroidism Code(s): E03.9 - Hypothyroidism, unspecified Status: Acute - Plan This is a 52-year-old white female admitted for acute hyponatremia and acute shelley with past medical history of DVT, and diabetes mellitus type 2. Right lower extremity DVT Dependant bilateral lower extremity swelling, improved -Patient on Xarelto for reported DVT or ischemic colitis, patient is poor historian. -[place] [facility] or ischemic colitis. -Patient reports DVT Dx [facility] about 4 weeks ago. -LE US with noted nonocclusive thrombus within right proximal and distal femoral vein and profundus vein. -Hematology consulted, greatly appreciate assistance. -Noted significant interactions with patient's psychotropics as well as Xarelto. -Currently on therapeutic dose of Lovenox until possible alternative psychotropics are established. -Discussed with , limitations exist due to patients allergy to medications. Not sure if hematology would consider IVC filter. -Encourage elevation and ambulation -No edema, no redness, no complaints of pain -Continue Lovenox, patient refused to take oral medications Diabetes T2, controlled Monitor sugars, Accu-Chek before meals and at bedtime with insulin sliding scale, may discontinue in 5 days if no coverage needed. -Decrease Metformin 500mg BID, lower dose - home dose 1,000mg -HgbA1c 5.7 -Follow up with PCP in 3 months, may cont to lower dose -Blood glucose fair controlled Hypotonic hyponatremia Improving, stable. -Random urine sodium wnl, urine osmolality low. F/u lithium level. Possible medication induced SIADH vs GI losses -continue Sodium tabs daily. Monitor sodium. Iron deficiency microcytic anemia -Hematology has started patient on iron supplementation. -Stool for occult blood negative -Continue iron supplements, monitor CBC History of/hyperlipidemia/hypothyroidism - continue home medications, atorvastatin, Synthroid - TSH 0.773 -Lipid panel stable Acute shelley/acute psychosis - with worsening symptoms, likely related to patient noncompliance and refusing to take p.o. medications extensive psych hx of schizophrenia and bipolar and long antipsychotic allergy list - lithium level 0.1 mL, UDS negative -Management with psychiatric team Altered mental status Worsening mood and affect -Likely related to psychiatric issues -CBC, unremarkable -BMP, unremarkable, hyponatremia improved, 140 today -Check ammonia level, and urinalysis to rule out metabolic causes -Vital signs stable, no fever or chills, monitor signs and symptoms DVT prop Lovenox Continue current management however patient unreliable with compliance in taking medications. Code Status: full code Discussed Condition With: patient , nurse and GAS UTILITY WORKER
[2018-02-27] MEDS: Sod Chloride 0.9% Inj 1,000 ML IV.CONT SCH (18:11)
[2018-02-27] MEDS: Insulin NovoLOG Aspart Correctional Sugar Inj SQ SCH (20:15)
[2018-02-27] MEDS: LORazepam 1 MG Tablet PO SCH (20:47)
[2018-02-27] MEDS: traZODone 100 MG Tablet PO SCH (20:47)
--- NOTE | 2018-02-27 21:08 | P.PNPSY ---
Subjective Chief Complaint: Bipolar I Disorder - current Manic Episode Remarks: Patient seen for follow-up, chart reviewed. Discussion with nursing staff reported that patient no further behavioral disturbances but continues to be disrobing on and off, had poor sleep this evening continues to be disorganized not eating. Patient was found in the hallway continues to be tangential noted to be disorganized and unable to sit down for interview and was able to manage giving appropriate responses with flight of ideas during interview. Patient was not disrobing but continued to be suspicious appropriate. Patient was advised and recommended to have adequate nutritional intake with the possibility of IV fluids if needed. Patient was encouraged to continue adherence and compliance of medications which she simply just monitor her head. Review of Systems All other systems reviewed negative except as stated in HPI Mental Status Examination Appearance: Appropriate Consciousness: Alert Orientation: Person, Place, Situation Motor Activity: Normal gait Speech: Unremarkable Language: Adequate Fund of Knowledge: Adequate Attention and Concentration: Easily distracted (Lessening) Memory: Immediate (intact), Recent (intact) Mood: Manic Affect: Labile, Other (Increased range and intensity) Thought Process & Associations: Loose associations (At times), Disorganized, Tangential (Lessening) Thought Content: Racing thoughts, Delusional Hallucination Type: None Delusion Type: Paranoid Suicidal Ideation: No Suicidal Plan: No Suicidal Intention: No Homicidal Ideation: No Homicidal Plan: No Homicidal Intention: No Insight: Poor Judgment: Poor Assessment and Plan - Assessment (1) Bipolar affective, manic, severe w/ psych Code(s): F31.2 - Bipolar disorder, current episode manic severe with psychotic features Status: Acute (2) Cannabis abuse Code(s): F12.10 - Cannabis abuse, uncomplicated Status: Acute - Plan Plan: Patient continues with labile behavior, continues to disturb on and off, tangential, flight of ideas and disorganized. Will increase Thorazine to 50 mg p.o. 4 times daily at 0900, with IM backup if he refuses p.o. medications. [id number] hrs. recommendations were by medical team. Continue to encourage patient to have adequate nutritional and fluid intake. Continue patient on one-to-one observation. Continue to monitor mood and behavior. Discharge planning in progress. Justification for Continued Inpatient Stay: At risk of further decompensation at lower level care.
[2018-02-28] MEDS: Levothyroxine 75 MCG Tablet PO SCH (05:21)
[2018-02-28] MEDS: Sod Chloride 0.9% Inj 1,000 ML IV.CONT SCH ×2 (06:18→15:01)
[2018-02-28] MEDS: Chlorpromazine Inj 50 MG/2 ML Ampule IM SCH ×4 (09:00→22:05)
[2018-02-28] MEDS: Enoxaparin Inj 80 MG/0.8 ML Syringe SQ SCH (09:00)
--- NOTE | 2018-02-28 09:50 | P.PNIM ---
Subjective Interval history: Follow-up DVT, hyponatremia, diabetes mellitus, and bipolar disorder/manic. Pt seen and examined sitting in the chair in her room, nurse at bedside. Patient hyperactive verbally with foul and inappropriate words. patient denies any pain or shortness of breath, pt denies any discomfort. Nurse reported left arm swollen , with previous IV infiltrated, PIV moved to right arm. Physical Exam Vital signs: Vital Signs 02/28/18 05:25 Temperature 98.0 F Pulse Rate 86 Respiratory Rate 19 Blood Pressure 114/66 Pulse Oximetry 98 Intake & Output 02/27/18 02/28/18 02/28/18 18:59 06:59 18:59 Intake Total 300 / 300 1000 / 1000 Balance 300 / 300 1000 / 1000 Intake: IV 1000 / 1000 NS Inj 1,000 ML @ 100 mls/hr IV 1000 / 1000 .CONT .Q10H [facility] Rx#:[id number] Oral 300 / 300 0 / 0 Other: # Voids 1 1 Narrative: GENERAL: Disheveled female, lying in bed in no apparent distress SKIN: Warm and dry. HEAD: Atraumatic. Normocephalic. CARDIOVASCULAR: Regular rate and rhythm. RESPIRATORY: No accessory muscle use. Clear to auscultation. Breath sounds equal bilaterally. GASTROINTESTINAL: Abdomen soft, non-tender, nondistended. Hepatic and splenic margins not palpable. MUSCULOSKELETAL: Extremities without clubbing, cyanosis,left hand trace, edema. No obvious deformities. NEUROLOGICAL: Awake and alert and oriented x 2. No obvious cranial nerve deficits. Motor grossly within normal limits. Five out of 5 muscle strength in the arms and legs. Normal speech. PSYCHIATRIC: Hyperactive, hyperverbal and inappropriate with inappropriate & flights of words, insight and judgment poor Results - Labs CBC & Chem 7: 02/27/18 08:14 02/27/18 08:14 Laboratory Results - last 24 hr 02/27/18 02/27/18 02/27/18 08:14 08:14 08:14 WBC 5.3 RBC 3.96 L Hgb 11.6 Hct 34.9 L MCV 88.3 MCH 29.2 MCHC 33.1 RDW 15.3 Plt Count 256 MPV 8.5 Neut % (Auto) 59.7 Lymph % (Auto) 25.9 Custer % (Auto) 11.1 H Eos % (Auto) 2.6 Baso % (Auto) 0.7 Neut # (Auto) 3.2 Lymph # (Auto) 1.4 Custer # (Auto) 0.6 Eos # (Auto) 0.1 Baso # (Auto) 0.0 Differential Comment Auto diff final Sodium 140 Potassium 3.6 Chloride 104 Carbon Dioxide 22.9 Anion Gap 13 BUN 18 Creatinine 0.89 Estimated GFR 66 L POC Glucose Random Glucose 95 Calcium 9.9 Total Bilirubin 0.4 AST 45 H ALT 48 Alkaline Phosphatase 89 Ammonia Total Creatine Kinase 195 H Cancelled CK-MB (CK-2) 6.2 H CK-MB (CK-2) % 3.2 Total Protein 7.6 Albumin 4.4 02/27/18 02/27/18 16:39 20:11 WBC RBC Hgb Hct MCV MCH MCHC RDW Plt Count MPV Neut % (Auto) Lymph % (Auto) Custer % (Auto) Eos % (Auto) Baso % (Auto) Neut # (Auto) Lymph # (Auto) Custer # (Auto) Eos # (Auto) Baso # (Auto) Differential Comment Sodium Potassium Chloride Carbon Dioxide Anion Gap BUN Creatinine Estimated GFR POC Glucose 94 Random Glucose Calcium Total Bilirubin AST ALT Alkaline Phosphatase Ammonia Less than 10 L Total Creatine Kinase CK-MB (CK-2) CK-MB (CK-2) % Total Protein Albumin Assessment and Plan - Assessment (1) Abdominal pain Code(s): R10.9 - Unspecified abdominal pain (2) Bipolar affective, manic, severe w/ psych Code(s): F31.2 - Bipolar disorder, current episode manic severe with psychotic features Status: Acute (3) Diabetes type 2, controlled Code(s): E11.9 - Type 2 diabetes mellitus without complications Status: Acute (4) Hypothyroidism Code(s): E03.9 - Hypothyroidism, unspecified Status: Acute - Plan This is a 52-year-old white female admitted for acute hyponatremia and acute shelley with past medical history of DVT, and diabetes mellitus type 2. Right lower extremity DVT Dependant bilateral lower extremity swelling, improved -Patient on Xarelto for reported DVT or ischemic colitis, patient is poor historian. -No documented imaging in [facility] EMR of DVT or ischemic colitis. -Patient reports DVT Dx [facility] about 4 weeks ago. -LE US with noted nonocclusive thrombus within right proximal and distal femoral vein and profundus vein. -Hematology consulted, greatly appreciate assistance. -Noted significant interactions with patient's psychotropics as well as Xarelto. -Currently on therapeutic dose of Lovenox until possible alternative psychotropics are established. -Discussed with , limitations exist due to patients allergy to medications. Not sure if hematology would consider IVC filter. -Encourage elevation and ambulation -No edema, no redness, no complaints of pain -Continue Lovenox, patient refused to take oral medications -left hand edema, s/p discontinued inflitrated IV, check for venous U/S r/o DVT Diabetes T2, controlled Monitor sugars, Accu-Chek before meals and at bedtime with insulin sliding scale, may discontinue in 5 days if no coverage needed. -Decrease Metformin 500mg BID, lower dose - home dose 1,000mg -HgbA1c 5.7 -Follow up with PCP in 3 months, may cont to lower dose -Blood glucose fair controlled Hypotonic hyponatremia Improving, stable. -Random urine sodium wnl, urine osmolality low. F/u lithium level. Possible medication induced SIADH vs GI losses -continue Sodium tabs daily. Monitor sodium. Iron deficiency microcytic anemia -Hematology has started patient on iron supplementation. -Stool for occult blood negative -Continue iron supplements, monitor CBC History of/hyperlipidemia/hypothyroidism - continue home medications, atorvastatin, Synthroid - TSH 0.773 -Lipid panel stable Acute shelley/acute psychosis - with worsening symptoms, likely related to patient noncompliance and refusing to take p.o. medications extensive psych hx of schizophrenia and bipolar and long antipsychotic allergy list - lithium level 0.1 mL, UDS negative -Management with psychiatric team Altered mental status Worsening mood and affect -Likely related to psychiatric issues -CBC, unremarkable -BMP, unremarkable, hyponatremia improved, 140 today -Check ammonia level, and urinalysis to rule out metabolic causes -Vital signs stable, no fever or chills, monitor signs and symptoms Slightly Elevated CK/ Rhabdomyolysis Likely related to dehydration and inactivity -continue IVF, encourage increase IVF -monitor CK and symptoms DVT prop Lovenox Continue current management however patient unreliable with compliance in taking medications. Code Status: full code Discussed Condition With: patient and nurse
[2018-02-28] MEDS: Insulin NovoLOG Aspart Correctional Sugar Inj SQ SCH ×4 (12:29→20:55)
[2018-02-28] MEDS: Furosemide 20 MG Tablet PO SCH (12:31)
[2018-02-28] MEDS: Potassium Chloride 10 MEQ ER Capsule PO SCH (12:31)
[2018-02-28] MEDS: Ferrous Sulfate 325 MG Tablet PO SCH ×2 (12:31→20:53)
[2018-02-28] MEDS: LORazepam 0.5 MG Tablet PO SCH (12:31)
--- NOTE | 2018-02-28 12:32 | P.PNPSY ---
Subjective Chief Complaint: Bipolar I Disorder - current Manic Episode Remarks: Patient seen and examined with nurse in weekend coverage for Dr. Dodson. Chart reviewed. I note that Thorazine dosing has recently been increased. Case discussed with nursing staff who reports patient has been refusing oral medications and has been biting through her IV lines. On my examination today, the patient is angry and her speech full of coprolalia. Thought process disorganized. She rants for a time about her mother. Some clang association. No evident sedation or other side effects from medications. No physical complaints. Vital Signs Temp Pulse Resp BP Pulse Ox 02/28/18 05:25 98.0 F 86 19 114/66 98 Intake and Output 02/27/18 02/28/18 02/28/18 22:59 06:59 14:59 Intake Total 60 / 60 1000 / 1000 Balance 60 60 1000 / 1000 Intake: IV 1000 / 1000 NS Inj 1,000 ML @ 100 mls/hr IV 1000 / 1000 .CONT .Q10H [facility] Rx#:[id number] Oral 60 60 0 / 0 Other: # Voids 1 1 Laboratory Results - last 24 hr 02/27/18 02/27/18 02/28/18 16:39 20:11 11:24 POC Glucose 94 98 Ammonia Less than 10 L Labs reviewed. Review of Systems unobtainable due to mental condition Mental Status Examination Appearance: Appropriate Consciousness: Alert Orientation: Person, Place Motor Activity: Normal gait Speech: Rapid Language: Other (Coprolalia) Fund of Knowledge: Adequate Attention and Concentration: Easily distracted Mood: Oppositional, Manic Affect: Irritable, Labile Thought Process & Associations: Loose associations, Disorganized Thought Content: Racing thoughts, Delusional Hallucination Type: None Delusion Type: Paranoid Suicidal Ideation: No Homicidal Ideation: No Insight: Poor Judgment: Poor Assessment and Plan - Assessment (1) Bipolar affective, manic, severe w/ psych Code(s): F31.2 - Bipolar disorder, current episode manic severe with psychotic features Status: Acute (2) Cannabis abuse Code(s): F12.10 - Cannabis abuse, uncomplicated Status: Acute - Plan Plan: Continue current dose of Thorazine as ordered. To consider further titration of this medication. Hospitalist input noted and appreciated. If patient continues to bite through IV tubing, we might consider institution of nonviolent restraints for interference with needed care. Continue to monitor on the medical psychiatric unit with one-to-one sitter. Continue other care as ordered. Justification for Continued Inpatient Stay: Risk for decompensation and less restrictive environment. Discharge Planning: Per Dr. Dodson
[2018-02-28] MEDS: Polyethylene Glycol 3350 17 GM Packet PO SCH (12:34)
[2018-02-28] MEDS: Metoclopramide 10 MG Tablet PO SCH ×3 (12:34→19:48)
[2018-02-28] MEDS: Pantoprazole Sodium 20 MG DR Tablet PO SCH (12:34)
[2018-02-28] MEDS: Senna/Docusate Sodium 8.6/50 MG Tablet PO SCH (12:34)
[2018-02-28] MEDS: Sodium Chloride 1 GM Tablet PO SCH (12:35)
[2018-02-28] MEDS: ChlorproMAZINE 50 MG Tablet PO SCH ×5 (12:39→22:05)
--- NOTE | 2018-02-28 18:18 | US ---
EXAM DATE: 02/28/2018 6:12 PM EST AGE/SEX: 52 years / Female INDICATIONS: Left arm edema. CLINICAL DATA: This is the patient's initial encounter. Patient reports that signs and symptoms have been present for 1 day and indicates a pain score of 1/10. MEDICAL/SURGICAL HISTORY: Hypothyroidism. HTN. Hyperlipidemia. Bipolar disorder. Depression. Sc hizophrenia. Tonsillectomy. COMPARISON: No prior exams available for comparison. FINDINGS: The vessels are compressible and augmentation response is documented. No filling defects a re seen. The flow is phasic with respiration. Other: None. CONCLUSION: No evidence of venous thrombosis of the left upper extremity. Electronically signed by: Rayshawn Cuevas MD 02/28/2018 6:17 PM EST
[2018-02-28] MEDS ORDERED: CHLORPROMAZINE 25 MG/ML IM STA (19:47)
[2018-02-28] MEDS: Lidocaine 5% Patch T-DERMAL SCH (19:47)
[2018-02-28] MEDS: traZODone 100 MG Tablet PO SCH (20:53)
[2018-02-28] MEDS: LORazepam 1 MG Tablet PO SCH (20:53)
[2018-03-01] MEDS: Enoxaparin Inj 80 MG/0.8 ML Syringe SQ SCH ×3 (00:17→23:37)
[2018-03-01] MEDS: Pantoprazole Sodium 20 MG DR Tablet PO SCH ×3 (00:18→23:38)
[2018-03-01] MEDS: Metoclopramide 10 MG Tablet PO SCH ×5 (00:18→23:38)
[2018-03-01] MEDS: Chlorpromazine Inj 50 MG/2 ML Ampule IM SCH ×5 (00:19→18:56)
[2018-03-01] MEDS: Levothyroxine 75 MCG Tablet PO SCH (05:59)
[2018-03-01] MEDS: LORazepam 0.5 MG Tablet PO SCH (09:21)
[2018-03-01] MEDS: ChlorproMAZINE 50 MG Tablet PO SCH ×5 (09:33→18:56)
--- NOTE | 2018-03-01 09:39 | P.PNIM ---
Subjective Interval history: Follow-up DVT, hyponatremia, diabetes mellitus, and bipolar disorder/manic. Patient seen and examined laying in bed, on soft restraints, nurse and sitter at bedside. Patient seems tired and drifting ice to close with conversation and assessment. Patient still having an appropriate words for conversation L flights of warts. Nurse reported patient pulled her IV out overnight and was not able to administer the IV fluid. Awaiting for the IV team to replace the IV line. Reported patient with poor p.o. intake Physical Exam Vital signs: Vital Signs 02/28/18 20:00 03/01/18 05:45 Temperature 96.9 F L Pulse Rate 80 Respiratory Rate 20 18 Blood Pressure 123/62 Pulse Oximetry 99 Intake & Output 02/28/18 03/01/18 03/01/18 18:59 06:59 18:59 Intake Total 260 / 260 Balance 260 / 260 Intake: IV 200 / 200 NS Inj 1,000 ML @ 100 mls/hr IV 200 / 200 .CONT .Q10H [facility] Rx#:[id number] Oral 60 / 60 Other: # Voids 1 Date of Last Bowel Movement 02/28/18 02/28/18 Narrative: GENERAL: Disheveled female, lying in bed, in no apparent distress SKIN: Warm and dry. HEAD: Atraumatic. Normocephalic. CARDIOVASCULAR: Regular rate and rhythm. RESPIRATORY: No accessory muscle use. Clear to auscultation. Breath sounds equal bilaterally. GASTROINTESTINAL: Abdomen soft, non-tender, nondistended. Hepatic and splenic margins not palpable. MUSCULOSKELETAL: Extremities without clubbing, cyanosis,left hand trace, edema. No obvious deformities. NEUROLOGICAL: Awake and alert and oriented x 2. No obvious cranial nerve deficits. Motor grossly within normal limits. Generalized weakness moving all 4 extremities. Normal speech. PSYCHIATRIC: Hyperactive, hyperverbal and inappropriate with inappropriate & flights of words, insight and judgment poor Results - Labs CBC & Chem 7: 02/27/18 08:14 02/27/18 08:14 Laboratory Results - last 24 hr 02/28/18 03/01/18 11:24 08:27 POC Glucose 98 Total Creatine Kinase 357 H - Imaging Impressions Venous Doppler Study 02/28/18 00:00 CONCLUSION: No evidence of venous thrombosis of the left upper extremity. Assessment and Plan - Assessment (1) Abdominal pain Code(s): R10.9 - Unspecified abdominal pain (2) Bipolar affective, manic, severe w/ psych Code(s): F31.2 - Bipolar disorder, current episode manic severe with psychotic features Status: Acute (3) Diabetes type 2, controlled Code(s): E11.9 - Type 2 diabetes mellitus without complications Status: Acute (4) Hypothyroidism Code(s): E03.9 - Hypothyroidism, unspecified Status: Acute - Plan This is a 52-year-old white female admitted for acute hyponatremia and acute shelley with past medical history of DVT, and diabetes mellitus type 2. Right lower extremity DVT Dependant bilateral lower extremity swelling, improved -Patient on Xarelto for reported DVT or ischemic colitis, patient is poor historian. -No documented imaging in [facility] EMR of DVT or ischemic colitis. -Patient reports DVT Dx [facility] about 4 weeks ago. -LE US with noted nonocclusive thrombus within right proximal and distal femoral vein and profundus vein. -Hematology consulted, agreed with the current treatment of Lovenox due to interaction with psychotropics -Currently on therapeutic dose of Lovenox until possible alternative psychotropics are established. Noted Xarelto, Eliquis and dabigatran have significant interaction with carbamazepine, currently on hold -Discussed with , limitations exist due to patients allergy to medications. Not sure if hematology would consider IVC filter. -Encourage elevation and ambulation -Continue Lovenox, patient refused to take oral medications -left hand edema, s/p discontinued inflitrated IV -Venous U/S of left UE, no evidence of DVT -We will reconsult hematology for p.o. anticoagulation when patient is more compliant in taking p.o. medications. Patient has not been compliant in taking p.o. medications recently Diabetes T2, controlled Monitor sugars, Accu-Chek before meals and at bedtime with insulin sliding scale, may discontinue in 5 days if no coverage needed. -Recently decreased dose of Metformin 500mg BID, home dose 1,000mg -HgbA1c 5.7 -Follow up with PCP in 3 months -Blood glucose fair controlled Hypotonic hyponatremia Improving, stable. -Random urine sodium wnl, urine osmolality low. F/u lithium level. Possible medication induced SIADH vs GI losses -continue Sodium tabs daily. Monitor sodium. Iron deficiency anemia -Hematology has started patient on iron supplementation. -Stool for occult blood negative -Continue iron supplements, monitor CBC History of/hyperlipidemia/hypothyroidism - continue home medications, atorvastatin, Synthroid - TSH 0.773 -Lipid panel stable Acute shelley/acute psychosis - with worsening symptoms, likely related to patient noncompliance and refusing to take p.o. medications extensive psych hx of schizophrenia and bipolar and long antipsychotic allergy list - lithium level 0.1 mL, UDS negative -Management with psychiatric team Altered mental status Worsening mood and affect -Likely related to psychiatric issues and noncompliance in taking oral medications -CBC, unremarkable -BMP, unremarkable, hyponatremia improved, 140 today -Check ammonia level, and urinalysis to rule out metabolic causes -Vital signs stable, no fever or chills, monitor signs and symptoms Elevated CK/ Rhabdomyolysis Likely related to dehydration and inactivity Increasing CK levels, patient noncompliance in IV fluid administration, pulled out IV line multiple times, patient may need to be on restraint while on IV fluid -Give bolus of normal saline today, continue IVF, encourage increase p.o. intake -monitor CK and symptoms recheck CK in a.m. DVT prop Lovenox Continue current management however patient unreliable with compliance with treatment and in in taking medications. Code Status: Full code Discussed Condition With: Patient and nurse
[2018-03-01 09:46] LABS: CKMB Percent 1.5 % (0.0-4.0); Creatine Kinase MB 5.3 ng/mL (0.5-3.6)
[2018-03-01] MEDS: Ferrous Sulfate 325 MG Tablet PO SCH ×2 (09:52→23:37)
[2018-03-01] MEDS: Insulin NovoLOG Aspart Correctional Sugar Inj SQ SCH ×4 (09:52→23:37)
[2018-03-01] MEDS: Potassium Chloride 10 MEQ ER Capsule PO SCH (09:53)
[2018-03-01] MEDS: Lidocaine 5% Patch T-DERMAL SCH (09:53)
[2018-03-01] MEDS: Furosemide 20 MG Tablet PO SCH (09:53)
[2018-03-01] MEDS: Senna/Docusate Sodium 8.6/50 MG Tablet PO SCH (09:54)
[2018-03-01] MEDS: Polyethylene Glycol 3350 17 GM Packet PO SCH (09:54)
[2018-03-01] MEDS: Sodium Chloride 1 GM Tablet PO SCH (09:55)
--- NOTE | 2018-03-01 12:58 | P.PNPSY ---
Subjective Chief Complaint: Bipolar I Disorder - current Manic Episode Remarks: Patient seen and examined in coverage for Dr. Dodson. Chart reviewed. Case discussed with nursing staff. Patient agitated overnight and required Thorazine ETO. Nonviolent restraints were required to allow for provision of needed medical care. A one-to-one sitter is at the bedside for my evaluation today. Patient is perhaps very slightly calmer today. However she remains easily agitated and disorganized. No evident side effects from medications. No physical complaints. Vital Signs Temp Pulse Resp BP Pulse Ox 03/01/18 05:45 96.9 F L 80 18 123/62 99 02/28/18 20:00 20 Intake and Output 02/28/18 03/01/18 03/01/18 22:59 06:59 14:59 Other: # Voids 1 Date of Last Bowel Movement 02/28/18 Laboratory Results - last 24 hr 03/01/18 03/01/18 08:27 11:52 POC Glucose 110 Total Creatine Kinase 357 H CK-MB (CK-2) 5.3 H CK-MB (CK-2) % 1.5 Labs reviewed. CK somewhat increased. Review of Systems unobtainable due to mental condition Mental Status Examination Appearance: Appropriate Consciousness: Alert Orientation: Person (At least) Motor Activity: Other (No motor abnormalities noted.) Speech: Rapid Language: Other (Rambling) Fund of Knowledge: Adequate Attention and Concentration: Easily distracted Memory: Immediate (intact), Recent (intact) Mood: Oppositional, Irritable Affect: Irritable, Labile Thought Process & Associations: Loose associations, Disorganized Thought Content: Racing thoughts, Delusional Hallucination Type: None Delusion Type: Paranoid Suicidal Ideation: No Homicidal Ideation: No Insight: Poor Judgment: Poor Assessment and Plan - Assessment (1) Bipolar affective, manic, severe w/ psych Code(s): F31.2 - Bipolar disorder, current episode manic severe with psychotic features Status: Acute (2) Cannabis abuse Code(s): F12.10 - Cannabis abuse, uncomplicated Status: Acute - Plan Plan: Titrate Thorazine to 75 mg 3 times daily by mouth with IM backup. Continue nonviolent restraints due to risk for ongoing interference with needed medical care. Continue sitter. Check BMP and CK in the morning. Continue to monitor on the medical psychiatric unit. Continue other medications and care as ordered. Justification for Continued Inpatient Stay: Medication changes. High risk for decompensation and less restrictive environment. Discharge Planning: Per Dr. Dodson
[2018-03-01] MEDS ORDERED: Sod Chloride 0.9% Inj 2,000 ML IV.SIG ONE (16:09)
[2018-03-01] MEDS: LORazepam 1 MG Tablet PO SCH (23:36)
[2018-03-01] MEDS: traZODone 100 MG Tablet PO SCH (23:37)
[2018-03-02] MEDS ORDERED: Sod Chloride 0.9% Inj 1,000 ML IV.CONT SCH (04:30)
[2018-03-02 07:12] LABS: Anion Gap 8 meq/L (5-15); Blood Urea Nitrogen 7 mg/dL (7-18); Calcium 9.1 mg/dL (8.5-10.1); Carbon Dioxide 24.6 meq/L (21.0-32.0); Chloride 110 meq/L (98-107); Creatine Kinase 137 U/L (26-192); Glomerular Filtration Rate Greater Than 89 mL/min (>89); Glucose,Random 90 mg/dL (74-106); Potassium 3.8 meq/L (3.5-5.1); Sodium 143 meq/L (136-145)
[2018-03-02] MEDS: Levothyroxine 75 MCG Tablet PO SCH (07:55)
--- NOTE | 2018-03-02 08:18 | P.PNPSY ---
Subjective Chief Complaint: Bipolar I Disorder - current Manic Episode Remarks: Patient seen for follow-up, chart reviewed, patient remains in med-psych unit due to poor nutritional intake. Discussion with nursing staff reported that patient had had required ETO for IM Thorazine yesterday, patient remains in soft restrains. Petition for ECT will be moved to following court hearing once family is contacted and involved in this aspect of the petition. Patient was seen lying in bed speaking at a lower volume than usual with disorganized thoughts and flight of ideas and tangential statements and unable to maintain adequate engagement in interview. Nursing reports that she has been incontinent in her hospital bed and was changed this morning. Review of Systems All other systems reviewed negative except as stated in HPI Mental Status Examination Appearance: Appropriate Consciousness: Alert Orientation: Person (At least) Motor Activity: Other (No motor abnormalities noted.) Speech: Pressured, Rapid Language: Other (Rambling) Fund of Knowledge: Adequate Attention and Concentration: Easily distracted Memory: Immediate (intact), Recent (intact) Mood: Oppositional, Irritable, Manic Affect: Irritable, Labile, Blunt Thought Process & Associations: Loose associations, Disorganized, Tangential Thought Content: Bizarre thinking, Racing thoughts, Preoccupations, Delusional Hallucination Type: None Delusion Type: Paranoid Suicidal Ideation: No Suicidal Plan: No Suicidal Intention: No Homicidal Ideation: No Homicidal Plan: No Homicidal Intention: No Insight: Poor Judgment: Poor Assessment and Plan - Plan Plan: Titrate Thorazine to 75 mg 3 times daily by mouth with IM backup. Continue nonviolent restraints due to risk for ongoing interference with needed medical care. Continue sitter. Check BMP and CK in the morning. Continue to monitor on the medical psychiatric unit. Continue other medications and care as ordered. Justification for Continued Inpatient Stay: Continued manic state Request Healthcare Surrogate/Guardian Advocate?: Yes
[2018-03-02] MEDS: Chlorpromazine Inj 50 MG/2 ML Ampule IM SCH ×3 (08:55→18:12)
[2018-03-02] MEDS: Enoxaparin Inj 80 MG/0.8 ML Syringe SQ SCH ×2 (08:55→20:39)
[2018-03-02] MEDS: ChlorproMAZINE 50 MG Tablet PO SCH ×3 (09:07→18:12)
[2018-03-02] MEDS: Insulin NovoLOG Aspart Correctional Sugar Inj SQ SCH ×2 (09:07→11:09)
[2018-03-02] MEDS: Pantoprazole Sodium 20 MG DR Tablet PO SCH ×2 (09:11→20:39)
[2018-03-02] MEDS: Ferrous Sulfate 325 MG Tablet PO SCH ×2 (09:11→20:39)
[2018-03-02] MEDS: Sodium Chloride 1 GM Tablet PO SCH (09:11)
[2018-03-02] MEDS: Furosemide 20 MG Tablet PO SCH (09:11)
[2018-03-02] MEDS: LORazepam 0.5 MG Tablet PO SCH (09:11)
[2018-03-02] MEDS: Potassium Chloride 10 MEQ ER Capsule PO SCH (09:11)
[2018-03-02] MEDS: Metoclopramide 10 MG Tablet PO SCH ×4 (09:17→20:40)
[2018-03-02] MEDS: Polyethylene Glycol 3350 17 GM Packet PO SCH (09:17)
[2018-03-02] MEDS: Lidocaine 5% Patch T-DERMAL SCH (09:17)
[2018-03-02] MEDS: Senna/Docusate Sodium 8.6/50 MG Tablet PO SCH (09:17)
--- NOTE | 2018-03-02 09:17 | P.PNIM ---
Subjective Interval history: Follow-up Rhabdomyolysis, DVT, hyponatremia, diabetes mellitus, and bipolar disorder/manic. Patient seen and examined laying in bed, in four-point soft restraints, sitter at bedside. Patient more calm today however still hyperverbal and inappropriate. Patient still having some flights of words in conversation. Patient reported patient was able to receive the bolus IV fluid and no receiving the maintenance IV fluid. Physical Exam Vital signs: Vital Signs 03/01/18 18:35 03/02/18 06:00 Temperature 98.4 F 97.3 F L Pulse Rate 72 81 Respiratory Rate 18 18 Blood Pressure 127/59 L 132/69 Pulse Oximetry 96 Intake & Output 03/01/18 03/02/18 03/02/18 18:59 06:59 18:59 Intake Total 1020 / 1020 4303 / 4303 960 / 960 Balance 1020 / 1020 4303 / 4303 960 / 960 Weight 76.4 kg Intake: Oral 1020 / 1020 1200 / 1200 960 / 960 Oral Supplement 100 / 100 Other 3003 / 3003 Other: Other Intake Source Saline Solution # Voids 3 3 Date of Last Bowel Movement 02/28/18 02/28/18 Narrative: GENERAL: Disheveled female, lying in bed, in no apparent distress SKIN: Warm and dry. HEAD: Atraumatic. Normocephalic. CARDIOVASCULAR: Regular rate and rhythm. RESPIRATORY: No accessory muscle use. Clear to auscultation. Breath sounds equal bilaterally. GASTROINTESTINAL: Abdomen soft, non-tender, nondistended. Hepatic and splenic margins not palpable. MUSCULOSKELETAL: Extremities without clubbing, cyanosis,left hand trace, edema. No obvious deformities. NEUROLOGICAL: Awake and alert and oriented x 2. No obvious cranial nerve deficits. Motor grossly within normal limits. Generalized weakness moving all 4 extremities. Normal speech. PSYCHIATRIC: Hyperactive, hyperverbal and inappropriate, with inappropriate & flights of words, insight and judgment poor Results - Labs CBC & Chem 7: 02/27/18 08:14 03/02/18 06:00 Laboratory Results - last 24 hr 03/01/18 03/01/18 03/01/18 08:27 11:52 16:52 Sodium Potassium Chloride Carbon Dioxide Anion Gap BUN Creatinine Estimated GFR POC Glucose 110 120 H Random Glucose Calcium Total Creatine Kinase 357 H CK-MB (CK-2) 5.3 H CK-MB (CK-2) % 1.5 03/02/18 06:00 Sodium 143 Potassium 3.8 Chloride 110 H Carbon Dioxide 24.6 Anion Gap 8 BUN 7 Creatinine 0.56 Estimated GFR Greater than 89 POC Glucose Random Glucose 90 Calcium 9.1 Total Creatine Kinase 137 CK-MB (CK-2) CK-MB (CK-2) % Assessment and Plan - Assessment (1) Abdominal pain Code(s): R10.9 - Unspecified abdominal pain (2) Bipolar affective, manic, severe w/ psych Code(s): F31.2 - Bipolar disorder, current episode manic severe with psychotic features Status: Acute (3) Diabetes type 2, controlled Code(s): E11.9 - Type 2 diabetes mellitus without complications Status: Acute (4) Hypothyroidism Code(s): E03.9 - Hypothyroidism, unspecified Status: Acute - Plan This is a 52-year-old white female admitted for acute hyponatremia and acute shelley with past medical history of DVT, and diabetes mellitus type 2. Right lower extremity DVT Dependant bilateral lower extremity swelling, improved -Patient on Xarelto for reported DVT or ischemic colitis, patient is poor historian. -No documented imaging in [facility] EMR of DVT or ischemic colitis. -Patient reports DVT Dx [facility] about 4 weeks ago. -LE US with noted nonocclusive thrombus within right proximal and distal femoral vein and profundus vein. -Hematology consulted, agreed with the current treatment of Lovenox due to interaction with psychotropics -Currently on therapeutic dose of Lovenox until possible alternative psychotropics are established. Noted Xarelto, Eliquis and dabigatran have significant interaction with carbamazepine, currently on hold -Discussed with , limitations exist due to patients allergy to medications. Not sure if hematology would consider IVC filter. -Encourage elevation and ambulation -Continue Lovenox, patient refused to take oral medications -left hand edema, s/p discontinued infiltrated IV, improving, no DVT -Venous U/S of left UE, no evidence of DVT -We will reconsult hematology for p.o. anticoagulation when patient is more compliant in taking p.o. medications. Patient has not been compliant in taking p.o. medications recently Diabetes Mellitus Type2, controlled -Blood sugar controlled -Recently decreased dose of Metformin 500mg BID, home dose 1,000mg -HgbA1c 5.7 -Follow up with PCP in 3 months -Blood glucose fair controlled, monitor Monitor blood sugars, Accu-Check BID Hypotonic hyponatremia Improved, stable. -Random urine sodium wnl, urine osmolality low. F/u lithium level. Possible medication induced SIADH vs GI losses -continue Sodium tabs daily. Monitor sodium. Iron deficiency anemia -Hematology has started patient on iron supplementation. -Stool for occult blood negative -Continue iron supplements, monitor CBC -patient with poor PO intake -add ensure on Diet History of/hyperlipidemia/hypothyroidism - continue home medications, atorvastatin, Synthroid - TSH 0.773 -Lipid panel stable Acute shelley/acute psychosis - with worsening symptoms, likely related to patient noncompliance and refusing to take p.o. medications extensive psych hx of schizophrenia and bipolar and long antipsychotic allergy list - lithium level 0.1 mL, UDS negative -Management with psychiatric team Altered mental status Worsening mood and affect -Likely related to psychiatric issues and noncompliance in taking oral medications -CBC, unremarkable -BMP, unremarkable, hyponatremia improved, 140 today - ammonia level less than 10 -urinalysis to rule out metabolic causes, unable to obtain sample -Vital signs stable, no fever or chills, monitor signs and symptoms Elevated CK/ Rhabdomyolysis Poor PO Intake Likely related to dehydration and inactivity Increasing CK levels, patient noncompliance in IV fluid administration, pulled out IV line multiple times, continue on restraint while on IV fluid -Give bolus of normal saline today, continue IVF, encourage increase p.o. intake -monitor CK improved to 137 -Continue IV fluid replacement due to poor p.o. intake -Dietitian consult for calorie count DVT prop Lovenox Continue current management however patient unreliable with compliance with treatment and in in taking medications. Code Status: full code Discussed Condition With: patient and nurse Dr Dodson
--- NOTE | 2018-03-02 11:48 | P.DIET ---
Nutritional Evaluation Type of nutrition evaluation: follow-up Nutrition consult regarding: Diet Evaluation Nutrition screening: Poor PO Intake Screening comments: 02/27 MDC for poor PO intake 03/02 MDC for poor PO intake Subjective Subjective Comments: Spoke to pt's nurse. Pt ate unusually good this morning (100%), however her usual intake is only 0-50%. Nurser reports pt is "psychotic" and that's why she is not eating. Objective - Diagnosis bipolar disoder - Objective % IBW: 121 (IBW = 145lb) Body Weight Used for Calculations: Actual Energy Needs - Lower Range (kCal/kg): 25 Energy Needs - Upper Range (kCal/kg): 30 Lower Limit kCal/kg (kCals): 1,990 Upper Limit kCal/kg (kCals): 2,388 Lower Limit Protein Factor (Grams per Kg): 1.1 Upper Limit Protein Factor (Grams per Kg): 1.3 Lower Protein Needs (Protein): 88 Upper Protein Needs (Protein): 103 Dietitian Reviewed in Medical Record: Current diet, Curent medications, Intake & Output, Labs, Medical history Diet Order: 1800 ADA with Glucerna Shakes Objective Comments: PMH: anemia, bipolar, depression, HLD, HTN, hypothyroid, schizophrenia Assessment Assessment: Pt currently at nutritional risk r/t reported poor PO intake. Pt presents with variable intake with a BMI of 24.9. Will continue Glucerna Shakes TID as a PO supplement. Will continue to monitor PO and supplement intake. Labs, wts and clinical course reviewed. Recommendations: Continue current diet with supplements. RD following Dietitian to Monitor: Lab values, Supplement acceptance, Intake & Output, Diet tolerance, Weight change, PO Intake, Medical course
--- NOTE | 2018-03-02 16:07 | P.PNPSY ---
Subjective Chief Complaint: Bipolar I Disorder - current Manic Episode Remarks: Patient seen for follow up; chart reviewed. Discussion with nursing staff reported that patient found in four-point restraints he had been receiving IV fluids and noted to have started to eat a little more and drink more fluids p.o. Patient was found with continued hypersexual gestures continue with disorganization but noted with less episodes of yelling. Patient also began taking medications p.o. this morning as well. Review of Systems All other systems reviewed negative except as stated in HPI Mental Status Examination Appearance: Appropriate Consciousness: Alert Orientation: Person (At least) Motor Activity: Other (No motor abnormalities noted.) Speech: Pressured, Rapid Language: Other (Rambling) Fund of Knowledge: Adequate Attention and Concentration: Easily distracted Memory: Immediate (intact), Recent (intact) Mood: Oppositional, Irritable, Manic Affect: Irritable, Labile, Blunt Thought Process & Associations: Loose associations, Disorganized, Tangential Thought Content: Bizarre thinking, Racing thoughts, Preoccupations, Delusional Hallucination Type: None Delusion Type: Paranoid Suicidal Ideation: No Suicidal Plan: No Suicidal Intention: No Homicidal Ideation: No Homicidal Plan: No Homicidal Intention: No Insight: Poor Judgment: Poor Assessment and Plan - Assessment (1) Bipolar affective, manic, severe w/ psych Code(s): F31.2 - Bipolar disorder, current episode manic severe with psychotic features Status: Acute (2) Cannabis abuse Code(s): F12.10 - Cannabis abuse, uncomplicated Status: Acute - Plan Plan: Patient continues with disorganization and tangentiality as well as hypersexual behavior. Patient continue on soft restraints to continue to receive IV fluids as patient has not been eating or drinking for the past couple of days. Patient now improving with p.o. intake as well as took medications p.o. this morning. We will continue to titrate Thorazine to 100 mg p.o. 3 times daily for mood stabilization and psychosis. We will continue to monitor with behavior. Discharge planning in progress. Justification for Continued Inpatient Stay: At risk of further decompensation at lower level care. Request Healthcare Surrogate/Guardian Advocate?: Yes
--- NOTE | 2018-03-02 16:53 | P.PNONC ---
Subjective Interval history: Pt seen in psychiatry, currently in 4 point soft restraints-sitter at bedside. Pt inappropriately speaking rapidly. No shortness of breath, leg pain. Denies bleeding. Objective Vital Signs/Intake & Output: Vital Signs 03/01/18 18:35 03/02/18 06:00 Temperature 98.4 F 97.3 F L Pulse Rate 72 81 Respiratory Rate 18 18 Blood Pressure 127/59 L 132/69 Pulse Oximetry 96 Intake & Output 03/01/18 03/02/18 03/02/18 18:59 06:59 18:59 Intake Total 1020 / 1020 4303 / 4303 192 / 1920 Balance 1020 / 1020 4303 / 4303 192 / 1920 Weight 76.4 kg Intake: Oral 1020 / 1020 1200 / 1200 192 / 1920 Oral Supplement 100 / 100 Other 3003 / 3003 Other: Other Intake Source Saline Solution # Voids 3 3 Date of Last Bowel Movement 02/28/18 02/28/18 03/02/18 Result Diagrams: 02/27/18 08:14 03/02/18 06:00 Laboratory Results: Laboratory Results - last 24 hr 03/01/18 03/02/18 03/02/18 16:52 06:00 09:03 Sodium 143 Potassium 3.8 Chloride 110 H Carbon Dioxide 24.6 Anion Gap 8 BUN 7 Creatinine 0.56 Estimated GFR Greater than 89 POC Glucose 120 H 112 H Random Glucose 90 Calcium 9.1 Total Creatine Kinase 137 Medications: Active Medications Generic Name Dose Route Start Last Admin Trade Name Freq PRN Reason Stop Dose Admin Acetaminophen 650 mg 01/16/18 20:17 02/22/18 05:17 Tylenol PO 650 mg Q4H PRN Administration Pain 1-5 or Temp >101F Al Hydrox/Mg Hydrox/Simethicone 30 ml 01/16/18 20:17 02/06/18 12:31 Mag-Al Plus Susp Liq PO 30 ml Q6H PRN Administration DYSPEPSIA Al Hydroxide/Mg Hydroxide 30 ml 01/16/18 20:17 02/11/18 05:20 Milk Of Magnesia Liq PO 30 ml Q12H PRN Administration Mild Constipation Atorvastatin Calcium 40 mg 01/17/18 11:30 03/02/18 09:17 Lipitor PO 40 mg DAILY HAMZAH Administration Carbamazepine 400 mg 02/21/18 09:00 02/25/18 08:55 Tegretol Chewable PO Not Given DAILY HAMZAH Carbamazepine 450 mg 02/20/18 21:00 02/24/18 20:48 Tegretol Chewable PO 450 mg HS HAMZAH Administration Enoxaparin Sodium 80 mg 02/19/18 09:00 03/02/18 08:55 Lovenox Inj SQ 80 mg Q12HR HAMZAH Administration Ferrous Sulfate 325 mg 02/06/18 09:00 03/02/18 09:11 Ferosul PO 325 mg BID HAMZAH Administration Furosemide 20 mg 02/16/18 09:00 03/02/18 09:11 Lasix PO 20 mg DAILY HAMZAH Administration Levothyroxine Sodium 75 mcg 01/17/18 11:30 03/02/18 07:55 Synthroid PO Not Given DAILY@0600 HAMZAH Lidocaine HCl 1 patch 01/31/18 16:15 03/02/18 09:17 Lidoderm 5% Patch.12 Hr T-DERMAL Not Given DAILY HAMZAH Lorazepam 1 mg 02/18/18 21:00 03/01/18 23:36 Ativan PO Not Given HS HAMZAH Lorazepam 0.5 mg 02/19/18 09:00 03/02/18 09:11 Ativan PO 0.5 mg DAILY HAMZAH Administration Metformin HCl 500 mg 01/17/18 11:30 03/02/18 09:17 Glucophage PO 500 mg BIDPC HAMZAH Administration Metoclopramide HCl 5 mg 01/17/18 13:00 03/02/18 12:02 Reglan PO 5 mg QID HAMZAH Administration Miscellaneous 1 each 02/02/18 20:12 02/17/18 00:25 Pill Splitter OTHER 1 each UNSCH PRN Administration PILL SPLITTER Multivitamins 1 tab 01/17/18 11:45 03/02/18 09:17 Theragran PO 1 tab DAILY HAMZAH Administration Padimate O 1 applicatio 01/17/18 15:00 02/20/18 04:39 Chapstick TOPICAL 1 applicatio UNSCH PRN Administration Dry lips Pantoprazole Sodium 20 mg 02/06/18 21:00 03/02/18 09:11 Protonix PO 20 mg BID HAMZAH Administration Patch Removal 1 each 01/31/18 21:00 03/01/18 23:38 Remove Old Patch T-DERMAL Not Given HS HAMZAH Polyethylene Glycol 17 gm 02/03/18 14:30 03/02/18 09:17 Miralax PO Not Given DAILY HAMZAH Potassium Chloride 10 meq 02/16/18 09:00 03/02/18 09:11 Kcl PO 10 meq DAILY HAMZAH Administration Senna/Docusate Sodium 1 tab 01/20/18 09:00 03/02/18 09:17 Sarahi-Colace PO Not Given DAILY HAMZAH Sodium Chloride 1 gm 01/18/18 09:00 03/02/18 09:11 Sodium Chloride PO 1 gm DAILY HAMZAH Administration Trazodone HCl 100 mg 01/30/18 21:00 03/01/18 23:37 Desyrel PO Not Given HS HAMZAH Objective Remarks: GENERAL: Well-nourished, well-developed middle-aged female patient, in no acute distress. SKIN: Warm and dry. HEAD: Normocephalic. EYES: No scleral icterus. No injection or drainage. NECK: Supple, trachea midline. CARDIOVASCULAR: Regular rate and rhythm without murmurs. RESPIRATORY:Anterior breath sounds clear, equal bilaterally. No accessory muscle use. GASTROINTESTINAL: Abdomen large, soft, non-tender, nondistended. EXTREMITIES: No cyanosis or edema. MUSCULOSKELETAL: Adequate muscle tone. NEUROLOGICAL: No obvious focal deficit. Awake, alert, and oriented x3. PSYCHIATRIC: Difficulty focusing, patient rapidly speaking. Assessment/Plan - Plan Ms. Evans is a 52-year-old lady whom I have been asked to see for further workup and management of a non-occlusive/chronic appearing right lower extremity deep venous thrombosis. This appears to be chronic because of its nonocclusive nature. She has symptoms of leg swelling and calf pain especially if she walks. Per the electronic health record, she had been on intermediate dose anticoagulation at the time of admission with Xarelto 10 mg once daily. She has no symptoms of difficulty breathing, pleuritic chest pain, cough or hemoptysis suggestive of pulmonary emboli. Plan: 1. Right lower extremity DVT, no swelling noted on exam. Continue on Lovenox. 2. Normocytic anemia, resolved Hgb 11.6, Stool for Hemoccult was negative. 3. Continue iron supplementation. 4. We will follow peripherally, kindly call if needed.
[2018-03-02] MEDS: LORazepam 1 MG Tablet PO SCH (20:39)
[2018-03-02] MEDS: traZODone 100 MG Tablet PO SCH (20:39)
[2018-03-03] MEDS: Levothyroxine 75 MCG Tablet PO SCH (05:06)
[2018-03-03 07:08] LABS: Baso % (Auto) 1.1 % (0.0-2.0); Eos # (Auto) 0.2 th/mm3 (0.0-0.4); Eos % (Auto) 5.8 % (0.0-4.0); Hematocrit 34.2 % (35.0-46.0); Hemoglobin 11.3 gm/dL (11.6-15.3); Lymph # (Auto) 1.3 th/mm3 (1.0-4.8); Lymph % (Auto) 38.5 % (9.0-44.0); Mean Corpuscular HGB Conc 33.1 % (32.0-36.0); Mean Corpuscular Hemoglobin 29.2 pg (27.0-34.0); Mean Corpuscular Volume 88.3 fL (80.0-100.0); Mean Platelet Volume 8.5 fL (7.0-11.0); Mono # (Auto) 0.3 th/mm3 (0.0-0.9); Mono % (Auto) 9.5 % (0.0-8.0); Neut # (Auto) 1.5 th/mm3 (1.8-7.7); Neut % (Auto) 45.1 % (16.0-70.0); Platelet Count 236 th/mm3 (150-450); Red Blood Count 3.87 mil/mm3 (4.00-5.30); Red Cell Distribution Width 15.4 % (11.6-17.2); White Blood Count 3.3 th/mm3 (4.0-11.0)
--- NOTE | 2018-03-03 07:38 | P.TTN ---
- Patient Problems Problems: 1. Discharge planning 2. Medication compliance 3. Knowledge deficit 4. Lack of coping skills - Progress Toward Goals Provider Present: Dr. Amparo Dodson (February 02, 2018 patient's shelley is softening, Dr. Dodson intends to remove the one-on-one, titrating medications, patient remains for further stabilization. February 04, 2018 patient remains manic, irritable, and needs to remain for further stabilization.) Provider Input: 03/02/2018; patient is refusing medication and will be given IM ; patient is delusional and responding to internal stimuli. 02/23: Pt, over this weekend, has refused all medications. Pt is currently 1:1 per her instability. Pt currently has DVT. Options include pt to accept medication for recommended tx, ECT via court order, [facility]. Isaac, counselor, to follow up with [facility] application and with pt to return to court [place] for court to rule on ECT as option. 02/18/18: Pt is being titrated on Lorazepam and Tegretal with subcutaneous Lovenox an impediment to pt being placed in [facility]. Pt does not currently meet SNF placement, OTR consults with Therapy Dept to confirm pt not meeting SNF status. MD to consult with hemotologist re: options for Lovenox (ie: P.O. medication) to increase dc options. 02/16/18: pt continuing medication; patient is continuing to slowly stabalize, continue medication mangement. case packer and sealer is continuing to work on locating safe placement for [facility] - at this time reviewing [facility]. 02/11/18: pt currently on tegretal 350 BID; pt is slowly stabilizing, further medication adjustments limited relative to pt's elevated sodium issues. Pt's sister has indicated she would like pt to remain at [facility] until pt is stabilized so pt can return to [facility]. Pt continues to meet in-pt criteria. 02/09/18: Pt continues to be manic, hyperverbal, intrusive and needs to remain for further stabilization. Tegrertal being titrated. Collateral from pt's sister is that pt continues to exhibit shelley. 01/28: Adjusting and increasing pt's medications today, pt is homeless, case management is working on placement to INTERMEDIATE, watch water intake due to decrease in sodium Nurse(s) Present: RN Nurse Input: 03/02/2018; patient is responding to internal stimuli, she is difficult to redirect, with nonsensical thoughts. 02/16/18: pt continuing hyperverbal, pt continuing to socialize, rapid pressure speech and is continuing to be medication compliant. 01/28: Pt remains manic, hyperverbal, religiously preoccupied, rapid pressured speech, med compliant Psychiatric Counselors Present: Isaac Lentz Jr., [facility] (Counselor spoke with Alice from [facility]. Alice is requesting the patient will return to their facility upon discharge), Steffanie Liz, [facility] Psychiatric Therapist Input: 03/02/2018; patient placement is still in review, to determine if returning to [facility] is appropriate verse a higher level of care. 02/16/18: pt is improving slowly, case packer and sealer is to work on finding different placement, at this time reviewing [facility], as of Friday02/13/18 pt was still improving per provider. 02/09/18: Pt plof was [facility], current plan is for pt to return when stabilized. Pt currrently meets criteria for in-pt status. Group Spec/RT/OT/BARRERA Present: Litzy Santacruz, GPS, HOLLY Ratliff ( Patient attends select groups and is redirectable.), Rasta Archibald, OT, HOLLY Harper (February 02, 2018 patient attends select groups and is redirectable) Group Spec/RT/OT/BARRERA Input: 03/02/2018; patient is unable to participate with groups or activities at this time. 02/23: Pt continues to participate in most groups, she is able to be appropriate but continues to act intrusively, requiring frequent redirection. 02/18/18: Pt ontinues to participate in groups , patient continues looking forward to socialization and participation but she continues to moderately intrusive and hyperverbal. 02/16/18: pt continues to participate in groups, patient continues looking forward to socialization and participation. 02/11/18: Pt attends most groups lately but she continues to moderately intrusive and hyperverbal, she is consistently in other people's business. Pt is redirectable with moderate effort, she is able to exercise more self-control though still needs external cuing to do so. 02/09/18: Pt attends select groups, she is intrusive, hyperverbal, needs repeated, nearly constant re -direction. 01/28: Pt attends select groups with 1:1 and constant redirection to remain quiet, focused, seated. Manic, intrusive, hyperverbal, increase in participation noted, pt is able to complete simple tasks Clinical Coordinator: Tasha Mathews [facility] Additional Input: 02/23: Isaac, counselor, to follow up with [facility] and with pt to return to court [place] for court to rule on ECT as option. 02/11/18: Pt's sister has indicated she would like pt to remain at [facility] until pt is stabilized so pt can return to [facility]. Pt continues to meet in-pt criteria. 02/09/18: Pt plof was [facility], current plan is for pt to return when stabilized. Pt currrently meets criteria for in-pt status. - Discharge Plan Other (Further evaluation for [facility] placement - at this time reviewing opportunity for [facility]) 02/18/18: Pt does not currently meet SNF placement, OTR consults with Therapy Dept to confirm pt not meeting SNF status. MD to consult with hemotologist re: options for Lovenox (ie: P.O. medication) to increase dc options. 02/11/18: Pt's sister has indicated she would like pt to remain at [facility] until pt is stabilized so pt can return to [facility]. Pt continues to meet in-pt criteria. 01/28: Pt discharge planning in progress with placement to [facility] - Documentation Teaching Recipient: Patient
[2018-03-03 08:24] LABS: Alanine Aminotransferase 32 U/L (10-53); Albumin 3.5 g/dL (3.4-5.0); Anion Gap 9 meq/L (5-15); Aspartate Aminotransferase 20 U/L (15-37); Blood Urea Nitrogen 7 mg/dL (7-18); Calcium 9.5 mg/dL (8.5-10.1); Carbon Dioxide 27.3 meq/L (21.0-32.0); Chloride 105 meq/L (98-107); Glomerular Filtration Rate 81 mL/min (>89); Glucose,Random 93 mg/dL (74-106); Sodium 141 meq/L (136-145)
[2018-03-03 08:27] LABS: Alkaline Phosphatase 95 U/L (45-117); Total Protein 6.5 g/dL (6.4-8.2)
[2018-03-03 08:32] LABS: Creatine Kinase 87 U/L (26-192)
--- NOTE | 2018-03-03 09:02 | P.PNIM ---
Subjective Interval history: Follow-up Rhabdomyolysis, DVT, hyponatremia, diabetes mellitus, and bipolar disorder/manic. Pt seen and examined, lying in be in 4 points soft restraints, sitter at bedside. Patient speaking inappropriate response to questions. Patient looks comfortable in bed Nurse denies any acute issues overnight Physical Exam Vital signs: Vital Signs 03/02/18 17:35 03/03/18 05:47 Temperature 98.0 F 97.6 F Pulse Rate 91 H 72 Respiratory Rate 18 18 Blood Pressure 123/68 122/65 Pulse Oximetry 100 97 Intake & Output 03/02/18 03/03/18 03/03/18 18:59 06:59 18:59 Intake Total 1919 340 / 340 Balance 1919 340 / 340 Intake: Oral 1919 240 / 240 Oral Supplement 100 / 100 Other: # Voids 2 Date of Last Bowel Movement 03/02/18 Narrative: GENERAL: Disheveled female, lying in bed, in no apparent distress SKIN: Warm and dry. HEAD: Atraumatic. Normocephalic. CARDIOVASCULAR: Regular rate and rhythm. RESPIRATORY: No accessory muscle use. Clear to auscultation. Breath sounds equal bilaterally. GASTROINTESTINAL: Abdomen soft, non-tender, nondistended. Hepatic and splenic margins not palpable. MUSCULOSKELETAL: Extremities without clubbing, cyanosis,left hand trace, edema. No obvious deformities. NEUROLOGICAL: Awake and alert and oriented x 2. No obvious cranial nerve deficits. Motor grossly within normal limits. Generalized weakness moving all 4 extremities. Normal speech. PSYCHIATRIC: Hyperactive, hyperverbal and inappropriate, with inappropriate & flights of words, insight and judgment poor Results - Labs CBC & Chem 7: 03/03/18 06:31 03/03/18 06:31 Laboratory Results - last 24 hr 03/02/18 03/03/18 03/03/18 09:03 06:31 06:31 WBC 3.3 L RBC 3.87 L Hgb 11.3 L Hct 34.2 L MCV 88.3 MCH 29.2 MCHC 33.1 RDW 15.4 Plt Count 236 MPV 8.5 Neut % (Auto) 45.1 Lymph % (Auto) 38.5 [place] % (Auto) 9.5 H Eos % (Auto) 5.8 H Baso % (Auto) 1.1 Neut # (Auto) 1.5 L Lymph # (Auto) 1.3 [place] # (Auto) 0.3 Eos # (Auto) 0.2 Baso # (Auto) 0.0 WBC Differential . Differential Comment Auto diff final Sodium 141 Potassium 4.0 Chloride 105 Carbon Dioxide 27.3 Anion Gap 9 BUN 7 Creatinine 0.75 Estimated GFR 81 L POC Glucose 112 H Random Glucose 93 Calcium 9.5 Total Bilirubin 0.2 AST 20 ALT 32 Alkaline Phosphatase 95 Total Creatine Kinase 87 Total Protein 6.5 D Albumin 3.5 Assessment and Plan - Assessment (1) Abdominal pain Code(s): R10.9 - Unspecified abdominal pain (2) Bipolar affective, manic, severe w/ psych Code(s): F31.2 - Bipolar disorder, current episode manic severe with psychotic features Status: Acute (3) Diabetes type 2, controlled Code(s): E11.9 - Type 2 diabetes mellitus without complications Status: Acute (4) Hypothyroidism Code(s): E03.9 - Hypothyroidism, unspecified Status: Acute - Plan This is a 52-year-old white female admitted for acute hyponatremia and acute shelley with past medical history of DVT, and diabetes mellitus type 2. Acute shelley/acute psychosis - with worsening symptoms, likely related to patient noncompliance and refusing to take p.o. medications extensive psych hx of schizophrenia and bipolar and long antipsychotic allergy list - lithium level 0.1 mL, UDS negative -Management with psychiatric team Altered mental status Worsening mood and affect -Likely related to psychiatric issues and noncompliance in taking oral medications -CBC, unremarkable -BMP, unremarkable, hyponatremia improved, 141 today - ammonia level less than 10 -urinalysis to rule out metabolic causes, unable to obtain sample -Vital signs stable, no fever or chills, monitor signs and symptoms Elevated CK/ Rhabdomyolysis Poor PO Intake Likely related to dehydration and inactivity Increasing CK levels, patient noncompliance in IV fluid administration, pulled out IV line multiple times, continue on restraint while on IV fluid -Give bolus of normal saline today, continue IVF, encourage increase p.o. intake -monitor CK improved, 87 today -s/p IV fluid replacement and bolus due to poor p.o. intake, encourage increase PO intake -Dietitian consult for calorie count Right lower extremity DVT Dependant bilateral lower extremity swelling, improved -Patient on Xarelto for reported DVT or ischemic colitis, patient is poor historian. -No documented imaging in [facility] of DVT or ischemic colitis. -Patient reports DVT Dx [facility] about 4 weeks ago. -LE US with noted nonocclusive thrombus within right proximal and distal femoral vein and profundus vein. -Hematology consulted, agreed with the current treatment of Lovenox due to interaction with psychotropics -Currently on therapeutic dose of Lovenox until possible alternative psychotropics are established. Noted Xarelto, Eliquis and dabigatran have significant interaction with carbamazepine, currently on hold -Discussed with , limitations exist due to patients allergy to medications. Not sure if hematology would consider IVC filter. -Encourage elevation and ambulation -Continue Lovenox, patient refused to take oral medications -left hand edema, s/p discontinued infiltrated IV, improving, no DVT -Venous U/S of left UE, no evidence of DVT -We will reconsult hematology for p.o. anticoagulation when patient is more compliant in taking p.o. medications. Patient has not been compliant in taking p.o. medications recently Diabetes Mellitus Type2, controlled -Blood sugar controlled -Recently decreased dose of Metformin 500mg BID, home dose 1,000mg -HgbA1c 5.7 -Follow up with PCP in 3 months -Blood glucose fair controlled, monitor Monitor blood sugars, Accu-Check BID Hypotonic hyponatremia Improved, stable. -Random urine sodium wnl, urine osmolality low. F/u lithium level. Possible medication induced SIADH vs GI losses -continue Sodium tabs daily. Monitor sodium. Iron deficiency anemia/Normocytic Anemia -Hematology has started patient on iron supplementation. -Stool for occult blood negative -Continue iron supplements, monitor CBC -patient with poor PO intake -add ensure on Diet History of/hyperlipidemia/hypothyroidism - continue home medications, atorvastatin, Synthroid - TSH 0.773 -Lipid panel stable DVT prop Lovenox Continue current management however patient unreliable with compliance with treatment and in in taking medications. Code Status: full code Discussed Condition With: patient and nurse
[2018-03-03] MEDS: ChlorproMAZINE 50 MG Tablet PO SCH ×3 (09:20→22:22)
[2018-03-03] MEDS: LORazepam 0.5 MG Tablet PO SCH (09:20)
[2018-03-03] MEDS: Ferrous Sulfate 325 MG Tablet PO SCH ×2 (09:21→21:13)
[2018-03-03] MEDS: Polyethylene Glycol 3350 17 GM Packet PO SCH (09:21)
[2018-03-03] MEDS: Enoxaparin Inj 80 MG/0.8 ML Syringe SQ SCH ×2 (09:21→22:22)
[2018-03-03] MEDS: Senna/Docusate Sodium 8.6/50 MG Tablet PO SCH (09:21)
[2018-03-03] MEDS: Sodium Chloride 1 GM Tablet PO SCH (09:21)
[2018-03-03] MEDS: Potassium Chloride 10 MEQ ER Capsule PO SCH (09:21)
[2018-03-03] MEDS: Furosemide 20 MG Tablet PO SCH (09:21)
[2018-03-03] MEDS: Pantoprazole Sodium 20 MG DR Tablet PO SCH ×2 (09:21→22:22)
[2018-03-03] MEDS: Metoclopramide 10 MG Tablet PO SCH ×5 (09:21→22:22)
[2018-03-03] MEDS: Lidocaine 5% Patch T-DERMAL SCH (09:23)
[2018-03-03] MEDS: Chlorpromazine Inj 50 MG/2 ML Ampule IM SCH (09:30)
[2018-03-03] MEDS ORDERED: Chlorpromazine Inj 50 MG/2 ML Ampule IM PRN (15:00)
--- NOTE | 2018-03-03 15:26 | ECG ---
Date Performed: 03/02/2018 Time Performed: 17:04:13 PTAGE: 52 years EKG: Sinus rhythm NORMAL ECG PREVIOUS TRACING : 02/20/2018 15.43 Since the previous tracing, no significant change noted DOCTOR: Susan Preciado Interpretating Date/Time 03/03/2018 15:24:47
[2018-03-03] MEDS: LORazepam 1 MG Tablet PO SCH (21:13)
[2018-03-03] MEDS: traZODone 100 MG Tablet PO SCH (21:13)
--- NOTE | 2018-03-03 21:52 | P.PNPSY ---
Subjective Chief Complaint: Bipolar I Disorder - current Manic Episode Remarks: Patient seen for follow-up, chart reviewed. Discussion with nursing staff reported that patient continues to be in soft restraints since patient pulled out her IV line last evening. Patient found with disorganization as well as flight of ideas and loosening of association. Patient states she ate some breakfast and slept last night. Patient continued with sexual preoccupation and gestures. ECT was discussed with the patient which she states she had a CBC in the past at the age of [age] years old but was unable to recall further details. Patient was encouraged to comply with treatment and maintain adequate p.o. nutritional intake which she simply got her head yes. Review of Systems All other systems reviewed negative except as stated in HPI Mental Status Examination Appearance: Appropriate Consciousness: Alert Orientation: Person (At least) Motor Activity: Other (No motor abnormalities noted.) Speech: Pressured, Rapid Language: Other (Rambling) Fund of Knowledge: Adequate Attention and Concentration: Easily distracted Memory: Immediate (intact), Recent (intact) Mood: Oppositional, Manic Affect: Labile, Blunt Thought Process & Associations: Loose associations, Disorganized, Tangential Thought Content: Bizarre thinking, Racing thoughts, Preoccupations, Delusional Hallucination Type: None Delusion Type: Paranoid Suicidal Ideation: No Suicidal Plan: No Suicidal Intention: No Homicidal Ideation: No Homicidal Plan: No Homicidal Intention: No Insight: Poor Judgment: Poor Assessment and Plan - Assessment (1) Bipolar affective, manic, severe w/ psych Code(s): F31.2 - Bipolar disorder, current episode manic severe with psychotic features Status: Acute (2) Cannabis abuse Code(s): F12.10 - Cannabis abuse, uncomplicated Status: Acute - Plan Plan: Patient with slight improvement continued with disorganization, flight of ideas and pressured speech at times. Continue current treatment. We will continue to monitor mood and behavior. Hospitalist and hematology input appreciated. Discharge planning in progress. Justification for Continued Inpatient Stay: At risk of further decompensation at lower level care. Request Healthcare Surrogate/Guardian Advocate?: Yes
[2018-03-04] MEDS: Levothyroxine 75 MCG Tablet PO SCH (06:52)
[2018-03-04] MEDS: ChlorproMAZINE 50 MG Tablet PO SCH (08:02)
[2018-03-04] MEDS: Sodium Chloride 1 GM Tablet PO SCH (08:37)
[2018-03-04] MEDS: Senna/Docusate Sodium 8.6/50 MG Tablet PO SCH (08:37)
[2018-03-04] MEDS: Metoclopramide 10 MG Tablet PO SCH ×4 (08:37→21:00)
[2018-03-04] MEDS: Potassium Chloride 10 MEQ ER Capsule PO SCH (08:37)
[2018-03-04] MEDS: Furosemide 20 MG Tablet PO SCH (08:37)
[2018-03-04] MEDS: Ferrous Sulfate 325 MG Tablet PO SCH ×2 (08:38→20:30)
[2018-03-04] MEDS: Polyethylene Glycol 3350 17 GM Packet PO SCH (08:38)
[2018-03-04] MEDS: Pantoprazole Sodium 20 MG DR Tablet PO SCH ×2 (08:38→21:00)
[2018-03-04] MEDS: LORazepam 0.5 MG Tablet PO SCH (08:38)
[2018-03-04] MEDS: Lidocaine 5% Patch T-DERMAL SCH (08:38)
[2018-03-04] MEDS: Enoxaparin Inj 80 MG/0.8 ML Syringe SQ SCH ×2 (08:43→22:24)
--- NOTE | 2018-03-04 12:31 | P.PNIM ---
Subjective Interval history: Follow-up Rhabdomyolysis, DVT, hyponatremia, diabetes mellitus, and bipolar disorder/manic. Patient seen and examined today. Laying in bed, patient is mumbling words. Occasionally follows commands. Does not respond spontaneously. As per nursing, patient had episode where in she was running naked outside the unit. Currently on one-to-one. As per nursing, patient has improved p.o. intake. Physical Exam Vital signs: Vital Signs 03/03/18 17:15 03/04/18 06:00 Temperature 97.6 F 98.4 F Pulse Rate 80 82 Respiratory Rate 16 19 Blood Pressure 99/60 L 116/55 L Pulse Oximetry 97 96 Intake & Output 03/03/18 03/04/18 03/04/18 18:59 06:59 18:59 Intake Total 1320 / 1320 340 / 340 Balance 1320 / 1320 340 / 340 Weight 73.1 kg Intake: Oral 1320 / 1320 240 / 240 Oral Supplement 100 / 100 Other: # Voids 1 2 Narrative: GENERAL: This is a well-nourished, well-developed patient, in no apparent distress. SKIN: Warm and dry. HEENT: Normocephalic. Alopecia. Pupils equal round and reactive. Nose without bleeding. Airway patent. NECK: Trachea midline. CARDIOVASCULAR: Regular rate and rhythm without murmurs, gallops, or rubs. RESPIRATORY: Clear to auscultation. Breath sounds equal bilaterally. No wheezes , rales, or rhonchi. GASTROINTESTINAL: Abdomen soft, non-tender, nondistended. Bowel Sounds normoactive. MUSCULOSKELETAL: Extremities without clubbing, cyanosis, or edema. NEUROLOGICAL: Awake and alert. Moves all extremities. Slow speech. Results - Labs CBC & Chem 7: 03/03/18 06:31 03/03/18 06:31 Assessment and Plan - Assessment (1) Abdominal pain Code(s): R10.9 - Unspecified abdominal pain (2) Bipolar affective, manic, severe w/ psych Code(s): F31.2 - Bipolar disorder, current episode manic severe with psychotic features Status: Acute (3) Diabetes type 2, controlled Code(s): E11.9 - Type 2 diabetes mellitus without complications Status: Acute (4) Hypothyroidism Code(s): E03.9 - Hypothyroidism, unspecified Status: Acute - Plan 52-year-old white female being admitted for acute hyponatremia and acute shelley. Bipolar disorder, Manic, Schizophrenic Altered mental status -Managed by psychiatry -Labs have been reviewed, with CBC, BMP unremarkable, ammonia level less than 10 Mild rhabdomyolysis, resolved -IV fluids provided. P.o. fluid intake encouraged. -Improved p.o. intake as per nursing Right lower extremity edema secondary to DVT DVT Chronic, non-occlusive -Patient previously taking Xarelto, per review of records Xarelto has interactions with psychotropic medications. -Continue Lovenox BID, as per hematology recommendations -Continue Lasix and KCL, low dose Normochromic anemia -Hemoccult negative -Continue iron supplement -Hematology following appreciate recommendations. Diabetes mellitus, stable -Continue Metformin 500 mg twice daily. -Follow up with PCP in 3 months, may cont to lower dose Hyponatremia -TSH wnl. Etiology is not clear although the patient says she used to take "salt supplements." -PreviousRandom urine sodium wnl, urine osmolality low. F/u lithium level. Possible medication induced SIADH vs GI losses -Echo 60-65% EF -Continue sodium tabs 1 gm -Improved Hyperlipidemia -Continue atorvastatin Hypothyroidism -Continue levothyroxine History of chronic constipation and ischemic colitis -No GI symptoms reported -Improved symptoms -Reglan 4 times daily DVT prop Lovenox Stable from Hospitalist standpoint. We will sign off. Reconsult as needed. Thank you Full code Discussed with patient, nursing Discharge Planning: DC disposition by primary team
--- NOTE | 2018-03-04 13:53 | P.TTN ---
- Patient Problems Problems: 1. Discharge planning 2. Medication compliance 3. Knowledge deficit 4. Lack of coping skills - Progress Toward Goals Provider Present: Dr. Amparo Dodson (February 02, 2018 patient's shelley is softening, Dr. Dodson intends to remove the one-on-one, titrating medications, patient remains for further stabilization. February 04, 2018 patient remains manic, irritable, and needs to remain for further stabilization.) Provider Input: 03/04/18; patient is not stable at this point, medication is still be adjust. 03/02/2018; patient is refusing medication and will be given IM; patient is delusional and responding to internal stimuli. 02/23: Pt, over this weekend, has refused all medications. Pt is currently 1:1 per her instability. Pt currently has DVT. Options include pt to accept medication for recommended tx, ECT via court order, [facility]. Isaac, counselor, to follow up with [facility] application and with pt to return to court [place] for court to rule on ECT as option. 02/18/18: Pt is being titrated on Lorazepam and Tegretal with subcutaneous Lovenox an impediment to pt being placed in [facility]. Pt does not currently meet SNF placement, OTR consults with Therapy Dept to confirm pt not meeting SNF status. MD to consult with hemotologist re: options for Lovenox (ie: P.O. medication) to increase dc options. 02/16/18: pt continuing medication; patient is continuing to slowly stabalize, continue medication mangement. block and case maker is continuing to work on locating safe placement for [facility] - at this time reviewing [facility]. 02/11/18: pt currently on tegretal 350 BID; pt is slowly stabilizing, further medication adjustments limited relative to pt's elevated sodium issues. Pt's sister has indicated she would like pt to remain at [facility] until pt is stabilized so pt can return to [facility]. Pt continues to meet in-pt criteria. 02/09/18: Pt continues to be manic, hyperverbal, intrusive and needs to remain for further stabilization. Tegrertal being titrated. Collateral from pt's sister is that pt continues to exhibit shelley. 01/28: Adjusting and increasing pt's medications today, pt is homeless, case management is working on placement to [facility], watch water intake due to decrease in sodium Nurse(s) Present: RN Nurse Input: 03/04/2018; patient is responding to internal stimuli, requires 1:1 , still refuse medication, and very nonsensical with thoughts. 03/02/2018; patient is responding to internal stimuli, she is difficult to redirect, with nonsensical thoughts. 02/16/18: pt continuing hyperverbal, pt continuing to socialize, rapid pressure speech and is continuing to be medication compliant. 01/28: Pt remains manic, hyperverbal, religiously preoccupied, rapid pressured speech, med compliant Psychiatric Counselors Present: Isaac Lentz Jr., [facility] (Counselor spoke with Alice from [facility]. Alice is requesting the patient will return to their facility upon discharge), Steffanie Liz, [facility] Psychiatric Therapist Input: 03/04/2018; dc placement remain the same, dc to [facility] when stable if appropriate if not to a different [facility]. 03/02/2018; patient placement is still in review, to determine if returning to [facility] is appropriate verse a higher level of care. 02/16/18: pt is improving slowly, block and case maker is to work on finding different placement, at this time reviewing [facility], as of Friday02/13/18 pt was still improving per provider. : Pt plof was [facility], current plan is for pt to return when stabilized. Pt currrently meets criteria for in-pt status. Group Spec/RT/OT/BARRERA Present: Litzy Santacruz, GPS, HOLLY Ratliff ( Patient attends select groups and is redirectable.), Rasta Archibald OT, HOLLY Harper (February 02, 2018 patient attends select groups and is redirectable) Group Spec/RT/OT/BARRERA Input: 03/04/2018 patient is unable to participate with groups. 03/02/2018; patient is unable to participate with groups or activities at this time. 02/23: Pt continues to participate in most groups, she is able to be appropriate but continues to act intrusively, requiring frequent redirection. 02/18/18: Pt ontinues to participate in groups, patient continues looking forward to socialization and participation but she continues to moderately intrusive and hyperverbal. 02/16/18: pt continues to participate in groups, patient continues looking forward to socialization and participation. 02/11/18: Pt attends most groups lately but she continues to moderately intrusive and hyperverbal, she is consistently in other people's business. Pt is redirectable with moderate effort, she is able to exercise more self-control though still needs external cuing to do so. 02/09/18: Pt attends select groups, she is intrusive, hyperverbal, needs repeated, nearly constant re-direction. : Pt attends select groups with 1:1 and constant redirection to remain quiet , focused, seated. Manic, intrusive, hyperverbal, increase in participation noted, pt is able to complete simple tasks Clinical Coordinator: Tasha Mathews [facility] Additional Input: 02/23: Isaac, counselor, to follow up with [facility] application and with pt to return to court [place] for court to rule on ECT as option. 02/11/18: Pt's sister has indicated she would like pt to remain at [facility] until pt is stabilized so pt can return to [facility]. Pt continues to meet in-pt criteria. 02/09/18: Pt plof was [facility], current plan is for pt to return when stabilized. Pt currrently meets criteria for in-pt status. - Discharge Plan Other (Further evaluation for [facility] placement - at this time reviewing opportunity for [facility]) 02/18/18: Pt does not currently meet SNF placement, OTR consults with Therapy Dept to confirm pt not meeting SNF status. MD to consult with hemotologist re: options for Lovenox (ie: P.O. medication) to increase dc options. 02/11/18: Pt's sister has indicated she would like pt to remain at [facility] until pt is stabilized so pt can return to [facility]. Pt continues to meet in-pt criteria. 01/28: Pt discharge planning in progress with placement to [facility] - Documentation Teaching Recipient: Patient
--- NOTE | 2018-03-04 14:04 | P.PNPSY ---
Subjective Chief Complaint: Bipolar I Disorder - current Manic Episode Remarks: Patient seen for follow-up, chart reviewed. Discussion with nursing staff reported that patient patient seen for follow-up, chart reviewed. Discussion with nursing staff reported that patient agitated this morning, yelling requiring to provide her medications IM, patient is eating more now continues require soft restraints as patient yesterday after shower had run out of the room into the hallway nude require redirection back to the bed. Patient was found lying hospital bed on three-point restraints that she was attempting to eat lunch this afternoon. Patient states that she slept "a little" noted to have slightly less irritability continues to have some clang associations some disorganization but also noted be irritable during interview. She. She reports tolerating her medications well. Patient was encouraged to continue adequate p.o. intake as well as cooperation with staff and compliance of medication which she simply nodded her head. Review of Systems All other systems reviewed negative except as stated in HPI Mental Status Examination Appearance: Appropriate Consciousness: Alert Orientation: Person (At least) Motor Activity: Other (No motor abnormalities noted.) Speech: Pressured, Rapid Language: Other (Yelling at times with clang association and coprolalia at times.) Fund of Knowledge: Adequate Attention and Concentration: Easily distracted Memory: Immediate (intact), Recent (intact) Mood: Oppositional (Slightly less and), Manic Affect: Irritable, Labile (Slightly less and) Thought Process & Associations: Loose associations, Disorganized, Tangential Thought Content: Bizarre thinking, Racing thoughts, Preoccupations, Delusional Hallucination Type: None Delusion Type: Paranoid Suicidal Ideation: No Suicidal Plan: No Suicidal Intention: No Homicidal Ideation: No Homicidal Plan: No Homicidal Intention: No Insight: Poor Judgment: Poor Assessment and Plan - Assessment (1) Bipolar affective, manic, severe w/ psych Code(s): F31.2 - Bipolar disorder, current episode manic severe with psychotic features Status: Acute (2) Cannabis abuse Code(s): F12.10 - Cannabis abuse, uncomplicated Status: Acute - Plan Plan: Patient continues with disorganization, portables control, continue with noted B irritable with client association and flight of ideas. We will continue to titrate Thorazine to 100 mg p.o. 4 times daily for mood stabilization with IM backup as needed if patient refuses. We will continue rest of medications will continue recommendations as per hospitalist input, input appreciated. Patient to continue on soft restraints for now to manage behavior as well to allow for IV hydration. We will continue to monitor mood and behavior. Discharge planning in progress. Justification for Continued Inpatient Stay: At risk of further decompensation at lower level care. Request Healthcare Surrogate/Guardian Advocate?: Yes
[2018-03-04] MEDS: Acetaminophen 325 MG Tablet PO PRN (14:44)
[2018-03-04] MEDS: LORazepam 1 MG Tablet PO SCH (20:29)
[2018-03-04] MEDS: traZODone 100 MG Tablet PO SCH (20:30)
[2018-03-05] MEDS: Ferrous Sulfate 325 MG Tablet PO SCH ×2 (09:13→21:00)
[2018-03-05] MEDS: Pantoprazole Sodium 20 MG DR Tablet PO SCH ×2 (09:14→21:04)
[2018-03-05] MEDS: LORazepam 0.5 MG Tablet PO SCH (09:14)
[2018-03-05] MEDS: Furosemide 20 MG Tablet PO SCH (09:14)
[2018-03-05] MEDS: Potassium Chloride 10 MEQ ER Capsule PO SCH (09:14)
[2018-03-05] MEDS: Senna/Docusate Sodium 8.6/50 MG Tablet PO SCH (09:15)
[2018-03-05] MEDS: Metoclopramide 10 MG Tablet PO SCH ×4 (09:15→21:04)
[2018-03-05] MEDS: Lidocaine 5% Patch T-DERMAL SCH (13:07)
[2018-03-05] MEDS: Levothyroxine 75 MCG Tablet PO SCH (13:07)
[2018-03-05] MEDS: Enoxaparin Inj 80 MG/0.8 ML Syringe SQ SCH ×2 (13:07→21:02)
[2018-03-05] MEDS: Polyethylene Glycol 3350 17 GM Packet PO SCH (13:08)
[2018-03-05] MEDS: Sodium Chloride 1 GM Tablet PO SCH (13:08)
--- NOTE | 2018-03-05 16:07 | P.PNPSY ---
Subjective Chief Complaint: Bipolar I Disorder - current Manic Episode Remarks: Patient seen for follow up; chart reviewed. Discussion with nursing staff reported that patient still inappropriate behavior attempted to grab at meal nurse last evening and required ETO of Ativan 2 mg IM. Patient was attempted to have restraints removed last evening but had required to be put back on them due to current behavior. Patient was found lying hospital bed noted to be less tangential unable to allow sql report writer to finish comments. Patient states he slept more last evening that she is tolerating medication denying any perceptional disturbances. Patient later in the day was removed from restraints and was noted to be ambulatory on the unit continue with inappropriate sexual behavior and disrobing and required frequent redirection. Patient also had required ETO of Thorazine 50 mg IM as patient was disorganized and playing with her feces. Patient no longer physically aggressive towards staff and although continued with disorganized behavior is more manageable. Review of Systems All other systems reviewed negative except as stated in HPI Mental Status Examination Appearance: Appropriate Consciousness: Alert Orientation: Person (At least) Motor Activity: Other (No motor abnormalities noted.) Speech: Pressured, Rapid Language: Other (Yelling at times with clang association and coprolalia at times.) Fund of Knowledge: Adequate Attention and Concentration: Easily distracted Memory: Immediate (intact), Recent (intact) Mood: Oppositional (Slightly less and), Manic Affect: Irritable, Labile (Slightly less and) Thought Process & Associations: Loose associations, Disorganized, Tangential Thought Content: Bizarre thinking, Racing thoughts, Preoccupations, Delusional Hallucination Type: None Delusion Type: Paranoid Suicidal Ideation: No Suicidal Plan: No Suicidal Intention: No Homicidal Ideation: No Homicidal Plan: No Homicidal Intention: No Insight: Poor Judgment: Poor Assessment and Plan - Assessment (1) Bipolar affective, manic, severe w/ psych Code(s): F31.2 - Bipolar disorder, current episode manic severe with psychotic features Status: Acute (2) Cannabis abuse Code(s): F12.10 - Cannabis abuse, uncomplicated Status: Acute - Plan Plan: Patient continues with disorganization, flight of ideas and sexual preoccupation with poor impulse control and continued disrobing. Patient was removed from restraints today and appears to be tolerating with redirection although required ETO Thorazine 1 it was not redirectable at that time. We will continue to titrate Thorazine to 125 mg a.m./100 mg/100 mg / 125 mg at bedtime along with decrease in lorazepam to 1 mg p.o. twice daily. We will continue rest of medications. We will explore possibility of re-initiating lithium as patient initially was refusing to take this medication and although not on her allergy list had one episode of toxicity from lithium in the past hence her reluctance to resume this treatment but we will continue to explore possibility of restarting her on this medication. Continue one-to-one observation for safety. Discharge planning in progress. Justification for Continued Inpatient Stay: At risk of further decompensation at lower level care. Request Healthcare Surrogate/Guardian Advocate?: Yes
[2018-03-05] MEDS: LORazepam 1 MG Tablet PO SCH (20:59)
[2018-03-05] MEDS: traZODone 100 MG Tablet PO SCH (21:00)
[2018-03-05] MEDS: ChlorproMAZINE 25 MG Tablet PO SCH (21:05)
[2018-03-06] MEDS: Levothyroxine 75 MCG Tablet PO SCH (06:24)
[2018-03-06] MEDS: Furosemide 20 MG Tablet PO SCH ×2 (09:21→10:49)
[2018-03-06] MEDS: Senna/Docusate Sodium 8.6/50 MG Tablet PO SCH (09:21)
[2018-03-06] MEDS: Pantoprazole Sodium 20 MG DR Tablet PO SCH ×3 (09:21→20:00)
[2018-03-06] MEDS: LORazepam 1 MG Tablet PO SCH ×3 (09:21→20:00)
[2018-03-06] MEDS: Sodium Chloride 1 GM Tablet PO SCH (09:21)
[2018-03-06] MEDS: Potassium Chloride 10 MEQ ER Capsule PO SCH ×2 (09:21→10:49)
[2018-03-06] MEDS: Ferrous Sulfate 325 MG Tablet PO SCH ×3 (09:22→20:00)
[2018-03-06] MEDS: Metoclopramide 10 MG Tablet PO SCH ×5 (09:22→20:00)
[2018-03-06] MEDS: ChlorproMAZINE 25 MG Tablet PO SCH ×4 (09:22→20:01)
[2018-03-06] MEDS: Polyethylene Glycol 3350 17 GM Packet PO SCH (10:11)
[2018-03-06] MEDS: Enoxaparin Inj 80 MG/0.8 ML Syringe SQ SCH ×3 (10:30→20:00)
[2018-03-06] MEDS: Lidocaine 5% Patch T-DERMAL SCH (10:49)
[2018-03-06] MEDS: Chlorpromazine Inj 50 MG/2 ML Ampule IM PRN (11:06)
--- NOTE | 2018-03-06 12:30 | P.PNPSY ---
<Tana Ulloa - Last Filed: 03/06/18 12:23> Subjective Chief Complaint: Bipolar I Disorder - current Manic Episode Remarks: Patient seen for follow up; chart reviewed. Patient was moved from [facility] floor back to 2700 due to behavioral issues and taking apart components of her room, like detaching the curtain rods, upstairs. Patient was found lying down in inflatable bed on the floor. Patient exhibited full range of mood, from crying and wanting to get better, to making sexual remarks and exposing herself to staff. Patient no longer physically aggressive towards staff and although continued with disorganized behavior, is able to be re-directed. Review of Systems All other systems reviewed negative except as stated in HPI Mental Status Examination Appearance: Appropriate, Disheveled Consciousness: Alert, Highly distractible, Clouded Orientation: Person (At least) Motor Activity: Other (No motor abnormalities noted.) Speech: Pressured Language: Other (Yelling at times with clang association and coprolalia at times.) Fund of Knowledge: Adequate Attention and Concentration: Easily distracted Memory: Immediate (intact), Recent (intact) Mood: Sad, Oppositional (Slightly less and), Manic Affect: Irritable, Sad, Labile (Slightly less ), Blunt Thought Process & Associations: Loose associations, Circumstantial, Disorganized , Tangential Thought Content: Bizarre thinking, Racing thoughts, Preoccupations, Delusional Hallucination Type: None Delusion Type: Paranoid Suicidal Ideation: No Suicidal Plan: No Suicidal Intention: No Homicidal Ideation: No Homicidal Plan: No Homicidal Intention: No Insight: Poor Judgment: Poor Assessment and Plan - Assessment (1) Bipolar affective, manic, severe w/ psych Code(s): F31.2 - Bipolar disorder, current episode manic severe with psychotic features Status: Acute - Plan Plan: Patient continues with disorganization, flight of ideas and sexual preoccupation with poor impulse control and continued disrobing. Patient was removed from restraints today and appears to be tolerating with redirection although required ETO Thorazine 1 it was not redirectable at that time. We will continue to titrate Thorazine to 125 mg a.m./100 mg/100 mg / 125 mg at bedtime along with decrease in lorazepam to 1 mg p.o. twice daily. We will continue rest of medications. We will explore possibility of re-initiating lithium as patient initially was refusing to take this medication and although not on her allergy list had one episode of toxicity from lithium in the past hence her reluctance to resume this treatment but we will continue to explore possibility of restarting her on this medication. Continue one-to-one observation for safety. Discharge planning in progress. Justification for Continued Inpatient Stay: Patient's willingness to take medications depends on the day and requires frequent ETOs. Current manic state is still ongoing. Request Healthcare Surrogate/Guardian Advocate?: Yes <Dejan Dodson - Last Filed: 03/06/18 16:05> Subjective Remarks: Patient seen for follow-up, chart reviewed. Discussion with nursing staff reported that patient early in the morning was attempting to dismantle curtains from the window and despite redirection and continued with this behavior which patient was then transferred back to 2700 unit for further management of her behavior is patient continues to be somewhat disorganized but not physically aggressive or requiring further restraints. Patient was seen down on the 2700 unit lying in hospital bed noted B, cooperative tearful at times was noted with some lability still and states that she had taken her medications although had spit them out in the morning. Patient despite, he states passive singer songwriter was disappointed and the patient patient was provided with brief supportive psychotherapy encourage patient to continue with treatment for stabilization which she nodded in agreement. Review of Systems All other systems reviewed negative except as stated in HPI Mental Status Examination Appearance: Disheveled Consciousness: Alert, Highly distractible Orientation: Person, Place Motor Activity: Other Speech: Pressured Language: Other (Occasional clang association is) Fund of Knowledge: Inadequate Attention and Concentration: Easily distracted Memory: Unremarkable Mood: Oppositional, Manic (Other noted to be lessening slightly) Affect: Labile, Other (Tearful) Thought Process & Associations: Loose associations, Circumstantial, Disorganized , Tangential Thought Content: Bizarre thinking, Racing thoughts (Decreasing) Hallucination Type: None Delusion Type: Paranoid Suicidal Ideation: No Suicidal Plan: No Suicidal Intention: No Homicidal Ideation: No Homicidal Plan: No Homicidal Intention: No Insight: Poor Judgment: Poor Assessment and Plan - Assessment (1) Bipolar affective, manic, severe w/ psych Code(s): F31.2 - Bipolar disorder, current episode manic severe with psychotic features Status: Acute (2) Cannabis abuse Code(s): F12.10 - Cannabis abuse, uncomplicated Status: Acute - Plan Plan: Estimated LOS: [] days Patient this time was able to manage to remain in better behavioral control not requiring restraints although this morning patient had more difficulty redirecting as patient was dismantling a curtain to have a transient to 2600 for further management. Patient has been decreasing nutritional intake and fluid intake which will continue to be encouraged. Patient also now agreed to p.o. medications and for the most part has been compliant. We will continue to titrate Thorazine to 125 mg p.o. 4 times daily with IM backup if patient refuses. We will continue rest of medications. Continue to monitor mood and behavior. Continue patient on one-to-one observation. We will continue to have patient presented to ECT facilities for treatment. Discharge planning in progress. Justification for Continued Inpatient Stay: At risk of further decompensation at lower level care.
[2018-03-06] MEDS: traZODone 100 MG Tablet PO SCH (20:00)
[2018-03-06] MEDS ORDERED: Chlorpromazine Inj 50 MG/2 ML Ampule IM ONE (22:15)
[2018-03-07] MEDS: Levothyroxine 75 MCG Tablet PO SCH (05:24)
[2018-03-07] MEDS: Ferrous Sulfate 325 MG Tablet PO SCH ×2 (08:55→21:23)
[2018-03-07] MEDS: Sodium Chloride 1 GM Tablet PO SCH (08:55)
[2018-03-07] MEDS: Pantoprazole Sodium 20 MG DR Tablet PO SCH ×2 (08:55→21:27)
[2018-03-07] MEDS: ChlorproMAZINE 25 MG Tablet PO SCH ×4 (08:55→21:25)
[2018-03-07] MEDS: Metoclopramide 10 MG Tablet PO SCH ×4 (08:56→21:22)
[2018-03-07] MEDS: Potassium Chloride 10 MEQ ER Capsule PO SCH (08:57)
[2018-03-07] MEDS: LORazepam 1 MG Tablet PO SCH ×2 (08:57→21:23)
[2018-03-07] MEDS: Senna/Docusate Sodium 8.6/50 MG Tablet PO SCH (08:57)
[2018-03-07] MEDS: Furosemide 20 MG Tablet PO SCH (08:57)
[2018-03-07] MEDS: Polyethylene Glycol 3350 17 GM Packet PO SCH (08:57)
[2018-03-07] MEDS: Lidocaine 5% Patch T-DERMAL SCH (08:58)
[2018-03-07] MEDS: Enoxaparin Inj 80 MG/0.8 ML Syringe SQ SCH ×2 (08:58→21:24)
--- NOTE | 2018-03-07 16:14 | P.PNPSY ---
Subjective Chief Complaint: Bipolar I Disorder - current Manic Episode Remarks: Reviewed electronic medical records and discussed case with staff. Follow-up was conducted in the visiting area with FRED Oswald present. Her nurse reports she notices some minor improvement in the patient today. Patient states that she feels "awesome". Still maintains that she is getting today. Reports that she slept for "a little bit". She is eating okay. Claims that her "mother -in-law" gave her a donut today. She remains tangential and somewhat hyperverbal. Mental Status Examination Appearance: Disheveled Consciousness: Alert, Highly distractible Orientation: Person, Place Motor Activity: Other Speech: Pressured Language: Other (Occasional clang association is) Fund of Knowledge: Inadequate Attention and Concentration: Easily distracted Memory: Unremarkable Mood: Oppositional, Manic (Other noted to be lessening slightly) Affect: Labile, Other (Tearful) Thought Process & Associations: Loose associations, Circumstantial, Disorganized , Tangential Thought Content: Bizarre thinking, Racing thoughts (Decreasing) Hallucination Type: None Delusion Type: Paranoid Suicidal Ideation: No Suicidal Plan: No Suicidal Intention: No Homicidal Ideation: No Homicidal Plan: No Homicidal Intention: No Insight: Poor Judgment: Poor Assessment and Plan - Assessment (1) Bipolar affective, manic, severe w/ psych Code(s): F31.2 - Bipolar disorder, current episode manic severe with psychotic features Status: Acute - Plan Plan: Patient will be reevaluated by the attending psychiatrist. Continue with current treatment plan. Justification for Continued Inpatient Stay: Moving this patient to a less restrictive environment would likely result in decompensation. Request Healthcare Surrogate/Guardian Advocate?: Yes
[2018-03-07] MEDS: traZODone 100 MG Tablet PO SCH (21:27)
[2018-03-08] MEDS: Levothyroxine 75 MCG Tablet PO SCH (05:12)
[2018-03-08] MEDS: LORazepam 1 MG Tablet PO SCH ×2 (08:57→20:12)
[2018-03-08] MEDS: Ferrous Sulfate 325 MG Tablet PO SCH ×2 (08:57→20:13)
[2018-03-08] MEDS: Potassium Chloride 10 MEQ ER Capsule PO SCH (08:57)
[2018-03-08] MEDS: Enoxaparin Inj 80 MG/0.8 ML Syringe SQ SCH ×2 (08:58→20:13)
[2018-03-08] MEDS: Furosemide 20 MG Tablet PO SCH (08:58)
[2018-03-08] MEDS: Lidocaine 5% Patch T-DERMAL SCH (08:58)
[2018-03-08] MEDS: Sodium Chloride 1 GM Tablet PO SCH (08:59)
[2018-03-08] MEDS: Pantoprazole Sodium 20 MG DR Tablet PO SCH ×2 (08:59→20:13)
[2018-03-08] MEDS: Metoclopramide 10 MG Tablet PO SCH ×5 (08:59→20:13)
[2018-03-08] MEDS: Senna/Docusate Sodium 8.6/50 MG Tablet PO SCH (08:59)
[2018-03-08] MEDS: Polyethylene Glycol 3350 17 GM Packet PO SCH (08:59)
[2018-03-08] MEDS: ChlorproMAZINE 25 MG Tablet PO SCH ×5 (09:00→20:14)
[2018-03-08] MEDS: Chlorpromazine Inj 50 MG/2 ML Ampule IM PRN (09:00)
--- NOTE | 2018-03-08 10:40 | P.PNPSY ---
Subjective Chief Complaint: Bipolar I Disorder - current Manic Episode Remarks: Reviewed electronic medical records and discussed case with staff. Follow-up was conducted in the hallway with FRED Aaron. Patient is hyper-sexual and will not keep her clothes on. She is banging her head and arms on the door and wall. She took a chair and lifted it onto the bed and was trying to climb onto the chair. She is intrusive and trying to touch everyone in her path. She is currently on a one-to-one for her safety and the safety of others. ETO ordered of Benadryl 50 mg and Ativan 1mg IM. Patient is refusing all po medications. I discussed this case with Dr. Dodson and he would like to re-start [place]. I have a call out to the family to obtain consent. Daughter is Joe Evans at [phone] and the son is Francheska Evans at [phone], Review of Systems All other systems reviewed negative except as stated in HPI Mental Status Examination Appearance: Disheveled Consciousness: Alert, Highly distractible Orientation: Person, Place Motor Activity: Other Speech: Pressured Language: Other (Occasional clang association is) Fund of Knowledge: Poor Attention and Concentration: Inadequate Memory: Unremarkable Mood: Oppositional, Manic (uncontrollable today, has to be redirected frequently ) Affect: Irritable, Anxious (banging her arms and head against the wall ) Thought Process & Associations: Loose associations, Circumstantial, Disorganized , Tangential Thought Content: Bizarre thinking, Racing thoughts (Decreasing) Hallucination Type: None Delusion Type: Paranoid Suicidal Ideation: No Suicidal Plan: No Suicidal Intention: No Homicidal Ideation: No Homicidal Plan: No Homicidal Intention: No Insight: Poor Judgment: Poor Assessment and Plan - Assessment (1) Bipolar affective, manic, severe w/ psych Code(s): F31.2 - Bipolar disorder, current episode manic severe with psychotic features Status: Acute - Plan Plan: Patient will be reevaluated by the attending psychiatrist. Continue with current treatment plan. Justification for Continued Inpatient Stay: Moving patient to a less restrictive environment may result in her decompensation. Request Healthcare Surrogate/Guardian Advocate?: Yes
[2018-03-08] MEDS ORDERED: LORazepam 1 MG Tablet PO SCH (18:00)
[2018-03-08] MEDS: traZODone 100 MG Tablet PO SCH (20:12)
[2018-03-09] MEDS: Levothyroxine 75 MCG Tablet PO SCH (05:57)
[2018-03-09] MEDS: LORazepam 1 MG Tablet PO SCH ×2 (08:00→08:21)
[2018-03-09] MEDS: Furosemide 20 MG Tablet PO SCH ×2 (08:00→08:24)
[2018-03-09] MEDS: Ferrous Sulfate 325 MG Tablet PO SCH ×3 (08:01→20:12)
[2018-03-09] MEDS: ChlorproMAZINE 25 MG Tablet PO SCH ×4 (08:01→20:13)
[2018-03-09] MEDS: Pantoprazole Sodium 20 MG DR Tablet PO SCH ×3 (08:01→20:12)
[2018-03-09] MEDS: Enoxaparin Inj 80 MG/0.8 ML Syringe SQ SCH ×2 (08:01→20:10)
[2018-03-09] MEDS: Sodium Chloride 1 GM Tablet PO SCH (08:01)
[2018-03-09] MEDS: Metoclopramide 10 MG Tablet PO SCH ×2 (08:01→08:22)
[2018-03-09] MEDS: Potassium Chloride 10 MEQ ER Capsule PO SCH ×2 (08:01→08:24)
[2018-03-09] MEDS: Lidocaine 5% Patch T-DERMAL SCH (08:21)
[2018-03-09] MEDS: Senna/Docusate Sodium 8.6/50 MG Tablet PO SCH (08:22)
[2018-03-09] MEDS: Polyethylene Glycol 3350 17 GM Packet PO SCH (08:22)
[2018-03-09] MEDS: Chlorpromazine Inj 50 MG/2 ML Ampule IM PRN (12:51)
--- NOTE | 2018-03-09 14:35 | P.PNPSY ---
Subjective Chief Complaint: Bipolar I Disorder - current Manic Episode Remarks: Patient seen for follow-up, chart reviewed. Discussion with nursing staff reported that patient patient this morning had required seclusion as patient had run down the halls knocking on doors had to be redirected back to her room which patient was able to self manage her impulsive behavior not requiring ETO' s. Patient was more compliant with medication but continues to require encouragement. Patient was later seen in seclusion room noted to be with poor eye contact and states that she is feeling "fine" stating that she is compliant with medication and is eating and drinking well. Patient was encouraged to cooperate with staff and refrain from disrobing while on the unit which she just nodded in acknowledgment. Discussion with ZIA Rueda regarding discontinuation of Lasix due to increased risk of toxicity of lithium when administered concomitantly which she agreed to for discontinuation stating that the edema had subsided substantially. Discussion of discontinuing of Reglan as patient also on antipsychotic medication was reviewed which Reglan also was discontinued. There is risk of interactions between dopamine 2 antagonist such as chlorpromazine and lithium which there is documentation of increased EPS, encephalopathy and brain damage which was reviewed with Joanie financial [employer] representative as she serves as health care surrogate regarding advocate for this patient. This combination of treatment is in light of previous medication trials with other mood stabilizers as well as patient's allergy list to include many mood stabilization medications. Treatment he will continue to pursue patient to be referred to ECT treatment and continues to be on wait list for state hospitalization the patient likely require long-term stabilization due to pharmacological management challenges as stated above as well as treatment resistance and may require more time to stabilize. Review of Systems All other systems reviewed negative except as stated in HPI Mental Status Examination Appearance: Disheveled, Other (Disrobing at times) Consciousness: Alert, Highly distractible Orientation: Person, Place Motor Activity: Other Speech: Pressured (Lessening) Language: Other (Occasional clang association is) Fund of Knowledge: Poor Attention and Concentration: Inadequate Memory: Unremarkable Mood: Oppositional, Manic (Lessening but continues to be prominent and that she requires redirection) Affect: Irritable, Anxious (banging her arms and head against the wall ) Thought Process & Associations: Loose associations, Circumstantial, Disorganized , Tangential Thought Content: Bizarre thinking, Racing thoughts (Decreasing) Hallucination Type: None Delusion Type: Paranoid Suicidal Ideation: No Suicidal Plan: No Suicidal Intention: No Homicidal Ideation: No Homicidal Plan: No Homicidal Intention: No Insight: Poor Judgment: Poor Assessment and Plan - Assessment (1) Bipolar affective, manic, severe w/ psych Code(s): F31.2 - Bipolar disorder, current episode manic severe with psychotic features Status: Acute (2) Cannabis abuse Code(s): F12.10 - Cannabis abuse, uncomplicated Status: Acute - Plan Plan: Patient this time continues with manic symptoms, disorganization, hypersexual preoccupation and portables control which patient required seclusion today but did not require ETO. Discontinuation of diuretic along with the discontinuation of Reglan reviewed with ZIA Rueda as patient currently on Thorazine and lithium. We will order labs and continue to monitor for possible toxicity as well as risks related to combination of these 2 medications as stated in HPI. We will start low-dose lithium 125mg BID and titrate slowly and continue to monitor for signs of toxicity or EPS. Will increase chlorpromazine to 150mg/125mg/125mg/150mg. Will hold lorazepam as it appears to have paradoxical effect which patient is noted to become more disinhibited. We will continue patient one-to-one observation for safety. We will continue to monitor mood and behavior. We will continue to search for ECT facilities for possible transfer to start this treatment modality as patient currently with limited response to pharmacological interventions. Patient continues to wait on a state hospitalization transfer. Discharge planning in progress. Justification for Continued Inpatient Stay: At risk of further decompensation at lower level care. Request Healthcare Surrogate/Guardian Advocate?: Yes
--- NOTE | 2018-03-09 18:04 | P.PNIM ---
Subjective Interval history: Medicine team was reconsulted to evaluate medication list and reactions with a few psychiatric medications the patient can take due to long list of allergies. Also being seen for follow-up Rhabdomyolysis, DVT, hyponatremia, diabetes mellitus, and bipolar disorder/manic. Patient seen and examined walking around in her room with a sitter had to encourage patient to sit to be able to examine. Patient is very hyper active, smiling and laughing, denies any pain or shortness of breath. Nurse reported patient not taking her oral medications and had been getting getting IM medications. Also reported patient was putting everything in her mouth including diaper, pillow, and lidocaine patch will DC for now. Nurse, sitter and EXTRA GANG SUPERVISOR in the room. Physical Exam Vital signs: Vital Signs 03/09/18 05:41 03/09/18 16:58 Temperature 97.6 F 97.9 F Pulse Rate 89 95 H Respiratory Rate 18 18 Blood Pressure 97/53 L 108/55 L Pulse Oximetry 96 Intake & Output 03/08/18 03/09/18 03/09/18 18:59 06:59 18:59 Weight 75.4 kg Other: Date of Last Bowel Movement 03/02/18 Narrative: GENERAL: Well-developed, well-nourished, hyperactive active female in no apparent distress SKIN: Warm and dry. HEAD: Atraumatic. Normocephalic. EYES: Pupils equal and round. No scleral icterus. No injection or drainage. ENT: No nasal bleeding or discharge. Mucous membranes pink and moist. NECK: Trachea midline. No JVD. CARDIOVASCULAR: Regular rate and rhythm. RESPIRATORY: No accessory muscle use. Clear to auscultation. Breath sounds equal bilaterally. GASTROINTESTINAL: Abdomen soft, non-tender, nondistended. Hepatic and splenic margins not palpable. MUSCULOSKELETAL: Extremities without clubbing, cyanosis, or edema. No obvious deformities. NEUROLOGICAL: Awake and alert. No obvious cranial nerve deficits. Motor grossly within normal limits. Five out of 5 muscle strength in the arms and legs. Normal speech. PSYCHIATRIC: Hyperactive mood and affect; insight and judgment very poor. Results - Labs CBC & Chem 7: 03/03/18 06:31 03/03/18 06:31 Assessment and Plan - Assessment (1) Abdominal pain Code(s): R10.9 - Unspecified abdominal pain (2) Bipolar affective, manic, severe w/ psych Code(s): F31.2 - Bipolar disorder, current episode manic severe with psychotic features Status: Acute (3) Diabetes type 2, controlled Code(s): E11.9 - Type 2 diabetes mellitus without complications Status: Acute (4) Hypothyroidism Code(s): E03.9 - Hypothyroidism, unspecified Status: Acute - Plan This is a 52-year-old white female admitted for acute hyponatremia and acute shelley with past medical history of DVT, and diabetes mellitus type 2. Acute shelley/acute psychosis Altered mental status Likely related to psychosis and noncompliance in taking medications - with worsening symptoms, likely related to patient noncompliance and refusing to take p.o. medications extensive psych hx of schizophrenia and bipolar and long antipsychotic allergy list - lithium level 0.1 mL, UDS negative -Management with psychiatric team -Workup negative and ruled out metabolic causes -Monitor mental status Right lower extremity DVT Dependant bilateral lower extremity swelling, improved -LE US with noted nonocclusive thrombus within right proximal and distal femoral vein and profundus vein. -Currently on therapeutic dose of Lovenox until possible alternative psychotropics are established. Noted Xarelto, Eliquis and dabigatran have significant interaction with carbamazepine, currently on hold -Encourage elevation and ambulation -Continue Lovenox, patient refused to take oral medications -Venous U/S of left UE, no evidence of DVT -We will reconsult hematology for p.o. anticoagulation when patient is more compliant in taking p.o. medications. Patient has not been compliant in taking p.o. medications recently -No edema no redness. Discontinue Lasix and KCl at this time due to reaction to the psych medications Diabetes Mellitus Type2, controlled -Blood sugar controlled -Recently decreased dose of Metformin 500mg BID, home dose 1,000mg -HgbA1c 5.7 -Follow up with PCP in 3 months -Blood glucose fair controlled, monitor Monitor blood sugars, Accu-Check BID Hypotonic hyponatremia Improved, stable. -Random urine sodium wnl, urine osmolality low. F/u lithium level. Possible medication induced SIADH vs GI losses -continue Sodium tabs daily. Monitor sodium. Iron deficiency anemia/Normocytic Anemia -Hematology has started patient on iron supplementation. -Stool for occult blood negative -Continue iron supplements, monitor CBC -patient with poor PO intake, encourage p.o. diet -Continue ensure on Diet History of/hyperlipidemia/hypothyroidism - continue home medications, atorvastatin, Synthroid - TSH 0.773 -Lipid panel stable DVT prop Lovenox Continue current management however patient unreliable with compliance with treatment and in in taking medications. Agreed with Dr. Dodson/psych team's request in discontinuing some of the medications that interacts with few psych medications that the patient can take due to her long list of allergies. Code Status: Full code Discussed Condition With: Patient, nurse, and sitter Dr. Dodson
[2018-03-09] MEDS: LITHIUM CITRATE 300 MG/5 ML PO SCH (20:09)
[2018-03-09] MEDS: traZODone 100 MG Tablet PO SCH (20:11)
[2018-03-09] MEDS ORDERED: LITHIUM CITRATE 300 MG/5 ML PO SCH (21:00)
[2018-03-09] MEDS ORDERED: ChlorproMAZINE 25 MG Tablet PO SCH (21:00)
[2018-03-10] MEDS: Levothyroxine 75 MCG Tablet PO SCH (05:28)
[2018-03-10] MEDS: Sodium Chloride 1 GM Tablet PO SCH (08:23)
[2018-03-10] MEDS: Ferrous Sulfate 325 MG Tablet PO SCH ×2 (08:24→21:24)
[2018-03-10] MEDS: Pantoprazole Sodium 20 MG DR Tablet PO SCH ×2 (08:24→21:24)
[2018-03-10] MEDS: LITHIUM CITRATE 300 MG/5 ML PO SCH ×2 (08:26→21:25)
[2018-03-10] MEDS: Enoxaparin Inj 80 MG/0.8 ML Syringe SQ SCH ×2 (08:37→21:24)
[2018-03-10] MEDS: Senna/Docusate Sodium 8.6/50 MG Tablet PO SCH (08:37)
[2018-03-10] MEDS: Polyethylene Glycol 3350 17 GM Packet PO SCH (08:37)
[2018-03-10] MEDS: ChlorproMAZINE 50 MG Tablet PO SCH ×2 (08:38→21:24)
--- NOTE | 2018-03-10 10:16 | P.PNPSY ---
Subjective Chief Complaint: Bipolar I Disorder - current Manic Episode Remarks: Patient seen for follow-up, chart reviewed. Discussion with nursing staff reported that patient took her medications by mouth this morning, ate breakfast , hydrating adequately continues to disrobe at times. Patient was found sitting in hospital bed with no pants on and refusing to put them on but noted to be able to engage more in interview, less tangentiality less disorganization more concrete today but noted to have irritability. Patient states she is eating and drinking well states having slept last night contrary to nursing report. Patient states that her mood has been "fine" denies any racing thoughts but behavior continues to persist of poor impulse control and sexual preoccupation. Review of Systems All other systems reviewed negative except as stated in HPI Mental Status Examination Appearance: Disheveled, Other (Disrobing at times) Consciousness: Alert, Highly distractible Orientation: Person, Place Motor Activity: Other Speech: Pressured (Lessening) Language: Other (Occasional clang association is) Fund of Knowledge: Poor Attention and Concentration: Inadequate Memory: Unremarkable Mood: Irritable Affect: Irritable, Labile (At times) Thought Process & Associations: Loose associations, Disorganized (Lessening), Tangential Thought Content: Bizarre thinking, Racing thoughts (Decreasing) Hallucination Type: None Delusion Type: Bizarre, Paranoid Suicidal Ideation: No Suicidal Plan: No Suicidal Intention: No Homicidal Ideation: No Homicidal Plan: No Homicidal Intention: No Insight: Poor Judgment: Poor Assessment and Plan - Assessment (1) Bipolar affective, manic, severe w/ psych Code(s): F31.2 - Bipolar disorder, current episode manic severe with psychotic features Status: Acute (2) Cannabis abuse Code(s): F12.10 - Cannabis abuse, uncomplicated Status: Acute - Plan Plan: Patient continued with disorganization and delusional at time sexually preoccupied with poor interest control but noted to be able to engage slightly better today interview continued with concrete responses. Patient now has been more compliant taking medications by mouth requiring less IM administration of medications. We will continue current regimen for now continue to monitor for signs of adverse drug reactions and toxicity although patient's lithium doses slowly being titrated due to combination of chlorpromazine with lithium. Labs pending, EKG pending. Continue one-to-one observation for safety. Discharge planning in progress. Justification for Continued Inpatient Stay: At risk of further decompensation at lower level care. Request Healthcare Surrogate/Guardian Advocate?: Yes
[2018-03-10 12:02] LABS: Baso # (Auto) 0.1 th/mm3 (0.0-0.2); Baso % (Auto) 1.1 % (0.0-2.0); Eos # (Auto) 0.3 th/mm3 (0.0-0.4); Eos % (Auto) 5.5 % (0.0-4.0); Hematocrit 33.5 % (35.0-46.0); Lymph # (Auto) 1.3 th/mm3 (1.0-4.8); Lymph % (Auto) 27.7 % (9.0-44.0); Mean Corpuscular HGB Conc 32.9 % (32.0-36.0); Mean Corpuscular Hemoglobin 29.1 pg (27.0-34.0); Mean Corpuscular Volume 88.6 fL (80.0-100.0); Mean Platelet Volume 8.8 fL (7.0-11.0); Mono # (Auto) 0.6 th/mm3 (0.0-0.9); Mono % (Auto) 12.1 % (0.0-8.0); Neut # (Auto) 2.5 th/mm3 (1.8-7.7); Neut % (Auto) 53.6 % (16.0-70.0); Platelet Count 265 th/mm3 (150-450); Red Blood Count 3.79 mil/mm3 (4.00-5.30); Red Cell Distribution Width 15.2 % (11.6-17.2); White Blood Count 4.7 th/mm3 (4.0-11.0)
[2018-03-10 12:24] LABS: Alanine Aminotransferase 28 U/L (10-53); Albumin 3.9 g/dL (3.4-5.0); Anion Gap 5 meq/L (5-15); Aspartate Aminotransferase 20 U/L (15-37); Blood Urea Nitrogen 17 mg/dL (7-18); Calcium 9.8 mg/dL (8.5-10.1); Carbon Dioxide 28.4 meq/L (21.0-32.0); Chloride 106 meq/L (98-107); Glomerular Filtration Rate 62 mL/min (>89); Glucose,Random 104 mg/dL (74-106); Potassium 4.8 meq/L (3.5-5.1); Sodium 139 meq/L (136-145)
[2018-03-10 12:25] LABS: Alkaline Phosphatase 100 U/L (45-117)
[2018-03-10 12:32] LABS: Thyroid Stimulating Hormone 2.29 uIU/mL (0.358-3.740)
[2018-03-10 12:45] LABS: CKMB Percent 1.1 % (0.0-4.0); Creatine Kinase MB 2.2 ng/mL (0.5-3.6)
--- NOTE | 2018-03-10 13:24 | ECG ---
Date Performed: 03/10/2018 Time Performed: 10:22:19 PTAGE: 52 years EKG: Sinus rhythm NORMAL ECG No significant change from prior electrocardiogram. PREVIOUS TRACING : 03/02/2018 17.04 DOCTOR: Esteban Queen Interpretating Date/Time 03/10/2018 13:24:24
[2018-03-10] MEDS: ChlorproMAZINE 25 MG Tablet PO SCH ×2 (13:25→17:01)
--- NOTE | 2018-03-10 13:53 | P.DIET ---
Nutritional Evaluation Type of nutrition evaluation: follow-up Nutrition consult regarding: Diet Evaluation Nutrition screening: Poor PO Intake Screening comments: 02/27 [facility] for poor PO intake 03/02 [facility] for poor PO intake Subjective Subjective Comments: Pt w/100% po intake for both breakfast and lunch today 03/10/18. Objective - Diagnosis bipolar disoder - Objective % IBW: 121 (IBW = 145lb) Body Weight Used for Calculations: Actual Energy Needs - Lower Range (kCal/kg): 25 Energy Needs - Upper Range (kCal/kg): 30 Lower Limit kCal/kg (kCals): 1,990 Upper Limit kCal/kg (kCals): 2,388 Lower Limit Protein Factor (Grams per Kg): 1.1 Upper Limit Protein Factor (Grams per Kg): 1.3 Lower Protein Needs (Protein): 88 Upper Protein Needs (Protein): 103 Dietitian Reviewed in Medical Record: Current diet, Curent medications, Intake & Output, Labs, Medical history Diet Order: 1800 ADA Oral Diet Intake Amount: Good 75-90% Objective Comments: PMH: anemia, bipolar, depression, HLD, HTN, hypothyroid, schizophrenia A1C 5.7, Glucose 104 Meds include: Glucophage, Theragran, Protonix, Trazodone Feeding - Current PO Supplement Current Supplement: Glucerna Shake Current Frequency of Supplement: Three times a day Current kCals Provided by Supplement: 220 Current Protein Provided by Supplement: 10 Assessment Assessment: Pt. continues at nutritional risk r/t poor po intake. PO intake improved over last two days > 50% po for meals-continue to monitor. Agree w/Fish Stoll TID per MD. Labs reviewed. Wt changes noted w/some recorded wts are obtained by using a standing scale. Dietitian following. Recommendations: 1. Agree w/Glucerna Shakes TID per MD 2. Dietitian following Dietitian to Monitor: Lab values, Glucose level, Supplement acceptance, Intake & Output, Weight change, PO Intake, Medical course
[2018-03-10] MEDS: Acetaminophen 325 MG Tablet PO PRN (17:24)
[2018-03-10] MEDS: traZODone 100 MG Tablet PO SCH (21:24)
[2018-03-11] MEDS: Levothyroxine 75 MCG Tablet PO SCH (05:22)
[2018-03-11] MEDS: LITHIUM CITRATE 300 MG/5 ML PO SCH ×2 (09:45→20:22)
[2018-03-11] MEDS: Sodium Chloride 1 GM Tablet PO SCH (09:46)
[2018-03-11] MEDS: Senna/Docusate Sodium 8.6/50 MG Tablet PO SCH (09:47)
[2018-03-11] MEDS: Pantoprazole Sodium 20 MG DR Tablet PO SCH ×2 (09:47→20:22)
[2018-03-11] MEDS: Polyethylene Glycol 3350 17 GM Packet PO SCH (09:47)
[2018-03-11] MEDS: Enoxaparin Inj 80 MG/0.8 ML Syringe SQ SCH ×2 (09:47→20:21)
[2018-03-11] MEDS: ChlorproMAZINE 50 MG Tablet PO SCH ×2 (09:47→20:23)
[2018-03-11] MEDS: Ferrous Sulfate 325 MG Tablet PO SCH ×2 (09:48→20:22)
[2018-03-11] MEDS: ChlorproMAZINE 25 MG Tablet PO SCH ×2 (13:52→18:14)
--- NOTE | 2018-03-11 14:08 | P.PNPSY ---
Subjective Chief Complaint: Bipolar I Disorder - current Manic Episode Remarks: Patient seen for follow-up, chart reviewed. Discussion with nursing staff reported that patient had required redirection this morning as patient was found smearing feces on the floor in her face but was able to be redirected, showered and was able to tolerate being in the dayroom among other patients today. Patient was found sitting in the room noted to be calm and cooperative. Patient states that she slept well last evening and her mood has been "okay" and denies any racing thoughts but throughout interview was continue to have sexual preoccupation, inappropriate touching with race and sports book writer and others. Continues to have some disorganization still. And sexually preoccupied. Review of Systems All other systems reviewed negative except as stated in HPI Mental Status Examination Appearance: Appropriate, Other (Disrobing at times) Consciousness: Alert, Highly distractible Orientation: Person, Place Motor Activity: Other Speech: Pressured (Lessening) Language: Other (Occasional clang association is) Fund of Knowledge: Poor Attention and Concentration: Inadequate Memory: Unremarkable Mood: Other ("fine") Affect: Labile (At times) Thought Process & Associations: Loose associations, Disorganized (Lessening), Tangential Thought Content: Bizarre thinking, Racing thoughts (Decreasing) Hallucination Type: None Delusion Type: Bizarre, Paranoid Suicidal Ideation: No Suicidal Plan: No Suicidal Intention: No Homicidal Ideation: No Homicidal Plan: No Homicidal Intention: No Insight: Poor Judgment: Poor Assessment and Plan - Assessment (1) Bipolar affective, manic, severe w/ psych Code(s): F31.2 - Bipolar disorder, current episode manic severe with psychotic features Status: Acute (2) Cannabis abuse Code(s): F12.10 - Cannabis abuse, uncomplicated Status: Acute - Plan Plan: Patient continues with disorganization, sexual preoccupation, poor impulse control requiring redirection and continues to have moments of impulsivity and requiring redirection with one-to-one sitter. We will continue current treatment as patient was recently started on lithium with upward titration as needed for stabilization. He will continue rest of medications. We will continue to monitor mood and behavior. Labs and EKG reviewed. Discharge planning in progress. Justification for Continued Inpatient Stay: At risk of further decompensation at lower level care. Request Healthcare Surrogate/Guardian Advocate?: Yes
[2018-03-11] MEDS: traZODone 100 MG Tablet PO SCH (20:22)
[2018-03-12] MEDS: Levothyroxine 75 MCG Tablet PO SCH (06:38)
[2018-03-12] MEDS: ChlorproMAZINE 50 MG Tablet PO SCH ×2 (08:13→20:00)
[2018-03-12] MEDS: LITHIUM CITRATE 300 MG/5 ML PO SCH ×2 (08:13→20:00)
[2018-03-12] MEDS: Sodium Chloride 1 GM Tablet PO SCH (08:17)
[2018-03-12] MEDS: Polyethylene Glycol 3350 17 GM Packet PO SCH (08:17)
[2018-03-12] MEDS: Pantoprazole Sodium 20 MG DR Tablet PO SCH ×2 (08:17→20:38)
[2018-03-12] MEDS: Ferrous Sulfate 325 MG Tablet PO SCH ×2 (08:17→20:38)
[2018-03-12] MEDS: Senna/Docusate Sodium 8.6/50 MG Tablet PO SCH (08:17)
[2018-03-12] MEDS: Enoxaparin Inj 80 MG/0.8 ML Syringe SQ SCH ×2 (08:18→20:38)
--- NOTE | 2018-03-12 12:59 | P.PNPSY ---
Subjective Chief Complaint: Bipolar I Disorder - current Manic Episode Remarks: Patient seen for follow-up, chart reviewed. Discussion with nursing staff reported that patient continue to be sexually preoccupied, continues with some disorganization at times which patient this morning had defecated in her room, but was later able to shower and redirect him no longer disrobing as much. Patient has been noted to have some improvement with less episodes of agitation but continues to be present and required one-to-one observation for redirection constantly. She reports to be well, continues to have some tangentiality and sexual preoccupation but noted to be able to engage in more appropriate behavior for interview today. Review of Systems All other systems reviewed negative except as stated in HPI Mental Status Examination Appearance: Appropriate, Other (Disrobing at times) Consciousness: Alert, Highly distractible (Lessening) Orientation: Person, Place Motor Activity: Other Speech: Pressured (Lessening) Language: Other (Occasional clang association is) Fund of Knowledge: Poor Attention and Concentration: Inadequate Memory: Unremarkable Mood: Other ("fine") Affect: Labile (At times) Thought Process & Associations: Loose associations, Disorganized (Lessening), Tangential Thought Content: Bizarre thinking, Racing thoughts (Decreasing) Hallucination Type: None Delusion Type: Bizarre, Paranoid Suicidal Ideation: No Suicidal Plan: No Suicidal Intention: No Homicidal Ideation: No Homicidal Plan: No Homicidal Intention: No Insight: Poor Judgment: Poor Assessment and Plan - Assessment (1) Bipolar affective, manic, severe w/ psych Code(s): F31.2 - Bipolar disorder, current episode manic severe with psychotic features Status: Acute (2) Cannabis abuse Code(s): F12.10 - Cannabis abuse, uncomplicated Status: Acute - Plan Plan: Patient continues with disorganization and mood but noted to have less frequent episodes of disorganization and requires constant redirection. We will continue to increase lithium to 300 mg p.o. twice daily, will order lithium level for tomorrow morning to assess baseline levels which likely are subtherapeutic due to starting out of low dose initially. We will continue rest of medications. Continue to monitor mood and behavior. Discharge planning in progress.. Continue one-to-one observation for safety. Justification for Continued Inpatient Stay: At risk of further decompensation at lower level care. Request Healthcare Surrogate/Guardian Advocate?: Yes
[2018-03-12] MEDS: ChlorproMAZINE 25 MG Tablet PO SCH ×2 (13:54→17:49)
[2018-03-12] MEDS: traZODone 100 MG Tablet PO SCH (20:38)
[2018-03-12] MEDS ORDERED: Chlorpromazine Inj 50 MG/2 ML Ampule IM ONE (21:30)
[2018-03-13] MEDS: Levothyroxine 75 MCG Tablet PO SCH (06:09)
[2018-03-13] MEDS: Sodium Chloride 1 GM Tablet PO SCH (09:56)
[2018-03-13] MEDS: ChlorproMAZINE 50 MG Tablet PO SCH ×2 (09:57→20:58)
[2018-03-13] MEDS: LITHIUM CITRATE 300 MG/5 ML PO SCH ×2 (09:57→21:01)
[2018-03-13] MEDS: Senna/Docusate Sodium 8.6/50 MG Tablet PO SCH (09:58)
[2018-03-13] MEDS: Pantoprazole Sodium 20 MG DR Tablet PO SCH ×2 (09:58→20:56)
[2018-03-13] MEDS: Ferrous Sulfate 325 MG Tablet PO SCH ×2 (09:58→20:57)
[2018-03-13] MEDS: Polyethylene Glycol 3350 17 GM Packet PO SCH (10:13)
[2018-03-13] MEDS: Enoxaparin Inj 80 MG/0.8 ML Syringe SQ SCH ×2 (10:15→21:09)
--- NOTE | 2018-03-13 10:51 | P.PNPSY ---
Subjective Chief Complaint: Bipolar I Disorder - current Manic Episode Remarks: Patient seen for follow-up, chart reviewed. Discussion with nursing staff reported that patient had a ETO yesterday after patient had woken up at 4 AM yelling and disrobing. Patient this morning was noted to be more appropriate Clothing on attended group today and was found sitting in the room with one-to- one sitter at her side. Patient was found in the room noted to be calm and cooperative. She continued with sexual preoccupation (i.e. blowing kisses making comments sexually focused) but was less intrusive and more redirectable. Patient was able to have more focus and engage more in conversation today. Patient was able to go to group which she states she tolerated well. Patient continues to deny having racing thoughts although is noted to be disorganized during interview at times. She states that she had ECT in her 20s and states she only had one session which may not be accurate. Patient denies any more fecal incontinence or "accidents" in her room, eating and drinking well and reports taking her medications. Review of Systems All other systems reviewed negative except as stated in HPI Mental Status Examination Appearance: Appropriate, Other (Disrobing at times) Consciousness: Alert, Highly distractible (Lessening) Orientation: Person, Place Motor Activity: Other Speech: Pressured (Lessening) Language: Other (Occasional clang association is) Fund of Knowledge: Poor Attention and Concentration: Inadequate Memory: Unremarkable Mood: Other ("fine") Affect: Labile (At times) Thought Process & Associations: Loose associations (Lessening), Disorganized ( Lessening), Tangential (Lessening) Thought Content: Bizarre thinking, Racing thoughts (Decreasing) Hallucination Type: None Delusion Type: Bizarre, Paranoid Suicidal Ideation: No Suicidal Plan: No Suicidal Intention: No Homicidal Ideation: No Homicidal Plan: No Homicidal Intention: No Insight: Poor Judgment: Poor Assessment and Plan - Assessment (1) Bipolar affective, manic, severe w/ psych Code(s): F31.2 - Bipolar disorder, current episode manic severe with psychotic features Status: Acute (2) Cannabis abuse Code(s): F12.10 - Cannabis abuse, uncomplicated Status: Acute - Plan Plan: Patient continues to be intrusive, 60 preoccupied, disorganized at times and continues to disrobe and requiring constant redirection. Patient noted to be more engageable during interview today although continues to have some sexual preoccupation and slightly less today. Patient is now more compliant with medication taking medications p.o. [place] was recently increased yesterday therefore we will continue current dose, will increase trazodone to 150 mg p.o. at bedtime this patient had poor sleep last evening. We will continue rest of medications. Continue to monitor with her behavior. [place] level for today pending. We will order lithium level 03/16/18 to continue to trend and monitor. Continue one-to-one observation for safety. Discharge planning in progress. Justification for Continued Inpatient Stay: At risk of further decompensation at lower level care. Discharge Planning: Patient currently refer to [facility] for long-term stabilization. Treatment team currently requesting acceptance to ECT facility for treatment; pending acceptance. Request Healthcare Surrogate/Guardian Advocate?: Yes
[2018-03-13] MEDS: ChlorproMAZINE 25 MG Tablet PO SCH ×2 (13:16→17:55)
[2018-03-13] MEDS: traZODone 100 MG Tablet PO SCH (20:59)
[2018-03-13] MEDS ORDERED: Chlorpromazine Inj 50 MG/2 ML Ampule IM ONE (23:45)
[2018-03-14] MEDS: Levothyroxine 75 MCG Tablet PO SCH (06:15)
[2018-03-14] MEDS: Ferrous Sulfate 325 MG Tablet PO SCH ×2 (08:04→20:44)
[2018-03-14] MEDS: LITHIUM CITRATE 300 MG/5 ML PO SCH ×2 (08:04→20:45)
[2018-03-14] MEDS: Polyethylene Glycol 3350 17 GM Packet PO SCH (08:05)
[2018-03-14] MEDS: Senna/Docusate Sodium 8.6/50 MG Tablet PO SCH (08:05)
[2018-03-14] MEDS: ChlorproMAZINE 50 MG Tablet PO SCH ×2 (08:05→20:44)
[2018-03-14] MEDS: Enoxaparin Inj 80 MG/0.8 ML Syringe SQ SCH ×2 (08:05→20:44)
[2018-03-14] MEDS: Pantoprazole Sodium 20 MG DR Tablet PO SCH ×2 (08:05→20:44)
[2018-03-14] MEDS: Sodium Chloride 1 GM Tablet PO SCH (08:05)
[2018-03-14] MEDS ORDERED: Chlorpromazine Inj 50 MG/2 ML Ampule IM STA (11:11)
[2018-03-14] MEDS: Acetaminophen 325 MG Tablet PO PRN (11:56)
[2018-03-14] MEDS: ChlorproMAZINE 25 MG Tablet PO SCH ×2 (12:57→17:01)
--- NOTE | 2018-03-14 16:08 | P.PNPSY ---
Subjective Chief Complaint: Bipolar I Disorder - current Manic Episode Remarks: Pt seen and discussed with staff. She has been agitated and labile on unit. She received ETO yesterday and today due to agitation. Today she has thrown food, yelling and screaming in room. She is disorganized and put feet in the toilet and urinated on the floor. She has had to redirected due to attempting to touch other patients and is hypersexual. Sleep is poor. She is compliant with medications. Mental Status Examination Appearance: Appropriate, Other (Disrobing at times) Consciousness: Alert, Highly distractible (Lessening) Orientation: Person, Place Motor Activity: Other Speech: Pressured (Lessening) Language: Other (Occasional clang association is) Fund of Knowledge: Poor Attention and Concentration: Inadequate Memory: Unremarkable Mood: Other ("fine") Affect: Labile (At times) Thought Process & Associations: Loose associations (Lessening), Disorganized ( Lessening), Tangential (Lessening) Thought Content: Bizarre thinking, Racing thoughts (Decreasing) Hallucination Type: None Delusion Type: Bizarre, Paranoid Suicidal Ideation: No Suicidal Plan: No Suicidal Intention: No Homicidal Ideation: No Homicidal Plan: No Homicidal Intention: No Insight: Poor Judgment: Poor Assessment and Plan - Assessment (1) Bipolar affective, manic, severe w/ psych Code(s): F31.2 - Bipolar disorder, current episode manic severe with psychotic features Status: Acute (2) Cannabis abuse Code(s): F12.10 - Cannabis abuse, uncomplicated Status: Acute - Plan Plan: Continue current tx plan. Justification for Continued Inpatient Stay: psychosis Request Healthcare Surrogate/Guardian Advocate?: Yes
[2018-03-14] MEDS: traZODone 100 MG Tablet PO SCH (20:44)
[2018-03-15] MEDS ORDERED: Chlorpromazine Inj 50 MG/2 ML Ampule IM ONE (01:15)
[2018-03-15] MEDS: Levothyroxine 75 MCG Tablet PO SCH (05:34)
[2018-03-15] MEDS: LITHIUM CITRATE 300 MG/5 ML PO SCH ×2 (09:09→21:25)
[2018-03-15] MEDS: Ferrous Sulfate 325 MG Tablet PO SCH ×2 (09:10→21:25)
[2018-03-15] MEDS: Senna/Docusate Sodium 8.6/50 MG Tablet PO SCH (09:10)
[2018-03-15] MEDS: Sodium Chloride 1 GM Tablet PO SCH (09:10)
[2018-03-15] MEDS: Polyethylene Glycol 3350 17 GM Packet PO SCH (09:10)
[2018-03-15] MEDS: Pantoprazole Sodium 20 MG DR Tablet PO SCH ×2 (09:10→21:25)
[2018-03-15] MEDS: ChlorproMAZINE 50 MG Tablet PO SCH ×2 (09:10→21:25)
[2018-03-15] MEDS: Enoxaparin Inj 80 MG/0.8 ML Syringe SQ SCH ×2 (09:20→21:25)
[2018-03-15 12:04] LABS: Baso % (Auto) 0.6 % (0.0-2.0); Eos # (Auto) 0.3 th/mm3 (0.0-0.4); Eos % (Auto) 4.2 % (0.0-4.0); Hematocrit 32.3 % (35.0-46.0); Hemoglobin 10.6 gm/dL (11.6-15.3); Lymph # (Auto) 0.9 th/mm3 (1.0-4.8); Lymph % (Auto) 14.7 % (9.0-44.0); Mean Corpuscular Hemoglobin 29.3 pg (27.0-34.0); Mean Corpuscular Volume 88.9 fL (80.0-100.0); Mean Platelet Volume 8.3 fL (7.0-11.0); Mono # (Auto) 0.4 th/mm3 (0.0-0.9); Mono % (Auto) 6.7 % (0.0-8.0); Neut # (Auto) 4.7 th/mm3 (1.8-7.7); Neut % (Auto) 73.8 % (16.0-70.0); Platelet Count 260 th/mm3 (150-450); Red Blood Count 3.63 mil/mm3 (4.00-5.30); Red Cell Distribution Width 14.8 % (11.6-17.2); White Blood Count 6.3 th/mm3 (4.0-11.0)
[2018-03-15] MEDS: ChlorproMAZINE 25 MG Tablet PO SCH ×2 (12:10→17:31)
[2018-03-15 12:13] LABS: Prothrombin Time 10.2 sec (9.8-11.6)
[2018-03-15 12:20] LABS: Bacteria,Urine Moderate /hpf; Bilirubin,Urine Negative (Negative); Clarity,Urine Cloudy (Clear); Color,Urine Yellow (Yellw/Straw); Glucose,Urine (UA) Negative (Negative); Leukocyte Esterase,Urine Large (Negative); Mucus,Urine Few /lpf (Occasional); Nitrite,Urine Negative (Negative); Specific Gravity,Urine 1.019 (1.002-1.035); Squamous Epithelial Cell,Urine 1 /hpf (0-5)
[2018-03-15 12:22] LABS: Albumin 3.9 g/dL (3.4-5.0); Anion Gap 7 meq/L (5-15); Aspartate Aminotransferase 22 U/L (15-37); Blood Urea Nitrogen 12 mg/dL (7-18); Carbon Dioxide 26.6 meq/L (21.0-32.0); Chloride 106 meq/L (98-107); Glomerular Filtration Rate 66 mL/min (>89); Glucose,Random 148 mg/dL (74-106); Lipase 138 U/L (73-393); Potassium 4.1 meq/L (3.5-5.1); Sodium 140 meq/L (136-145)
[2018-03-15 12:25] LABS: Alanine Aminotransferase 27 U/L (10-53); Alkaline Phosphatase 93 U/L (45-117); Creatine Kinase 258 U/L (26-192); Total Protein 6.9 g/dL (6.4-8.2)
[2018-03-15 12:54] LABS: CKMB Percent 1.7 % (0.0-4.0); Creatine Kinase MB 4.5 ng/mL (0.5-3.6)
--- NOTE | 2018-03-15 13:16 | XR ---
EXAM DATE: 03/15/2018 1:12 PM EST AGE/SEX: 52 years / Female INDICATIONS: Shortness of breath. CLINICAL DATA: This is the patient's initial encounter. Patient reports that signs and symptoms have been present for 1 day and indicates a pain score of 0/10. MEDICAL/SURGICAL HISTORY: Hypothyroidism. Hypertension. None. COMPARISON: [facility] – [place], CHEST PA & LAT, 12/28/2015. . FINDINGS: A single AP view of the chest demonstrates the lungs to be symmetrically aerated without evidence of mass, infiltrate or effusion. The cardiomediastinal contours are unremarkable. Osseous structures a re intact. CONCLUSION: No acute cardiopulmonary process. Electronically signed by: Rayshawn Kapadia MD 03/15/2018 1:14 PM EST
--- NOTE | 2018-03-15 13:58 | P.PNIM ---
Subjective Interval history: STAT reconsult for black tarry stools and vomiting green bile. Patient seen and examined. Patient denies any acute medical complaints. She says she is hungry and wants to eat. She says that she is not gotten any of her medication. She denies any fever or chills. She denies any chest pain or shortness of breath. She denies any nausea. She reports episode of greenish emesis x 2. She denies any blood in the vomitus. She denies any dysuria or hematuria. She denies any diarrhea. Nursing staff reports charcoal colored black formed stools earlier today. Patient then covered the green in her room with her feces. She also ate some of her own feces prior to vomiting. Patient is on iron supplementation. Physical Exam Vital signs: Last Vital Signs Temp 97.2 F L 03/14/18 06:00 Pulse 97 H 03/14/18 06:00 Resp 18 03/14/18 06:00 BP 101/54 L 03/14/18 06:00 Pulse Ox 95 03/14/18 06:00 Intake & Output 03/13/18 03/14/18 03/15/18 03/16/18 06:59 06:59 06:59 06:59 Intake Total 480 / 480 Balance 480 / 480 Narrative: GENERAL: Well-developed, well-nourished female in no apparent distress. She is encountered sitting on her bed in her room. She is presently calm. She does not appear toxic. Several puddles of urine noted on the floor, no gross hematuria observed. +Smeared dark feces on wall and on her hands. SKIN: Warm and dry. HEAD: Atraumatic. Normocephalic. EYES: Pupils equal and round. No scleral icterus. No injection or drainage. ENT: No nasal bleeding or discharge. Mucous membranes pink and moist. NECK: Trachea midline. CARDIOVASCULAR: Tachycardic. No murmur appreciated. RESPIRATORY: No accessory muscle use. Clear to auscultation. Breath sounds equal bilaterally. GASTROINTESTINAL: Abdomen soft, non-tender, nondistended. +BS. MUSCULOSKELETAL: Extremities without clubbing, cyanosis, or edema. No obvious deformities. NEUROLOGICAL: Awake and alert. No obvious cranial nerve deficits. Motor grossly within normal limits. Able to move all extremities. Normal speech. Cursing multiple expletives repeatedly but apologizes for her language. PSYCHIATRIC: Presently, calm and ooperative with exam; insight and judgment very poor. Results Labs CBC & Chem 7: 03/15/18 11:52 03/15/18 11:52 Imaging Imaging: Impressions Chest X-Ray 03/15/18 00:00 CONCLUSION: No acute cardiopulmonary process. Assessment and Plan (1) Bipolar affective, manic, severe w/ psych: Code(s): F31.2 - Bipolar disorder, current episode manic severe with psychotic features Status: Acute (2) Cannabis abuse: Code(s): F12.10 - Cannabis abuse, uncomplicated Status: Acute Plan 52-year-old white female admitted for acute hyponatremia and acute shelley with past medical history of DVT, and diabetes mellitus type 2. 03/15 STAT reconsult for dark black stools and emesis of green bile x 2 -last vital signs recorded on 03/14 at 0600 BP 101/54, P 97, Resp 18, Temp 97.2, O2 sat 95 Patient does not appear septic bedside BS 107 CXR shows no acute cardiopulmonary process, images reviewed by me no leukocytosis, H/H appears stable. Electrolytes are normal. LFTs are normal. Lipase 138. Lactic acid 1.1. Troponin <0.02. CPK is mildly elevated at 258. stool occult pending. Previous stool occult neg 02/13 -patient with dark stools on iron supplementation. Follow up on stool hemoccult testing. H/H stable. Will repeat CBC in am. -episode of emesis after eating her own feces. Labs unremarkable as above. Resume diet. Encourage po fluid intake. Encourage patient to not eat feces. -monitor UTI Urinalysis with small blood, large leukocytes, 24 white blood cells, moderate bacteria, cx indicated -start on po Cipro x 3 days -follow up on final urine culture results Acute shelley/acute psychosis Altered mental status Likely related to psychosis and noncompliance in taking medications -with worsening symptoms, likely related to patient noncompliance and refusing to take p.o. medications extensive psych hx of schizophrenia and bipolar and long antipsychotic allergy list -lithium level 0.5 03/14 -Management with psychiatric team -Workup negative and ruled out metabolic causes -Monitor mental status Right lower extremity DVT Dependant bilateral lower extremity swelling, improved -LE US with noted nonocclusive thrombus within right proximal and distal femoral vein and profundus vein. -Currently on therapeutic dose of Lovenox until possible alternative psychotropics are established. -Encourage elevation and ambulation -Continue Lovenox, patient refused to take oral medications. 03/15 patient has been compliant with oral medications. No longer on Tegretol. Will ask Hematology if patient may be resumed on previous po Xarelto and discontinue Lovenox inj. Diabetes Mellitus Type2, controlled -Blood sugar controlled -continue on Metformin 500mg BID -HgbA1c 5.7 -Follow up with PCP in 3 months Monitor blood sugars, Accu-Check BID Hypotonic hyponatremia Improved, stable. -Random urine sodium wnl, urine osmolality low. F/u lithium level. Possible medication induced SIADH vs GI losses -continue Sodium tabs daily. Monitor sodium. Na 140 03/15. Iron deficiency anemia/Normocytic Anemia -Hematology has started patient on iron supplementation. -Stool for occult blood negative -Continue iron supplements, monitor CBC -patient with poor PO intake, encourage p.o. diet -Continue ensure on Diet History of/hyperlipidemia/hypothyroidism - continue home medications, atorvastatin, Synthroid - TSH 0.773 - Lipid panel stable DVT prop Lovenox Discussed Condition With: patient, nursing staff Progress Note: Quality VTE Deep Vein Thrombosis/Pulmonary Embolism Present on Admission: No
--- NOTE | 2018-03-15 14:08 | P.PNPSY ---
Subjective Chief Complaint: Bipolar I Disorder - current Manic Episode Remarks: Reviewed electronic record and discussed with nursing staff. Patient is pale. She defecated black tarry stools , smearing them on the wall and eating her own feces. Nursing reports that she has been vomiting green bile. Patient was admitted to the ICU on 03/01/18 for the same presentation. At that time she was hyponatremic and became obtunded. H/H on 03/10/18 was 11/33.5 and today H/H was 10.6/32.3. Last lithum was on 03/14 and was 0.5. Patient continues to be paranoid, intrusive and easily distracted. Requested a hospitalist consult. Review of Systems All other systems reviewed negative except as stated in HPI Gastrointestinal: Reports abdominal pain, Reports black, tarry stools, Reports vomiting Mental Status Examination Appearance: Appropriate, Other (Disrobing at times) Consciousness: Alert, Highly distractible (Lessening) Orientation: Person, Place Motor Activity: Other Speech: Pressured (Lessening) Language: Other (Occasional clang association is) Fund of Knowledge: Poor Attention and Concentration: Inadequate Memory: Unremarkable Mood: Other ("fine") Affect: Labile (At times) Thought Process & Associations: Loose associations (Lessening), Disorganized ( Lessening), Tangential (Lessening) Thought Content: Bizarre thinking, Racing thoughts (Decreasing) Hallucination Type: None Delusion Type: Bizarre, Paranoid Suicidal Ideation: No Suicidal Plan: No Suicidal Intention: No Homicidal Ideation: No Homicidal Plan: No Homicidal Intention: No Insight: Poor Judgment: Poor Assessment and Plan - Assessment (1) Bipolar affective, manic, severe w/ psych Code(s): F31.2 - Bipolar disorder, current episode manic severe with psychotic features Status: Acute - Plan Plan: Continue current tx plan. Justification for Continued Inpatient Stay: Moving patient to a less restrictive environment may result in her decompensation. Request Healthcare Surrogate/Guardian Advocate?: Yes
[2018-03-15] MEDS: Ciprofloxacin 500 MG Tablet PO SCH ×2 (15:00→21:25)
[2018-03-15] MEDS: traZODone 100 MG Tablet PO SCH (21:25)
[2018-03-16] MEDS: Levothyroxine 75 MCG Tablet PO SCH (06:11)
[2018-03-16 08:51] LABS: Eos # (Auto) 0.3 th/mm3 (0.0-0.4); Eos % (Auto) 6.6 % (0.0-4.0); Hematocrit 28.6 % (35.0-46.0); Hemoglobin 9.7 gm/dL (11.6-15.3); Lymph # (Auto) 1.1 th/mm3 (1.0-4.8); Lymph % (Auto) 28.4 % (9.0-44.0); Mean Corpuscular Hemoglobin 29.7 pg (27.0-34.0); Mean Corpuscular Volume 87.5 fL (80.0-100.0); Mean Platelet Volume 8.6 fL (7.0-11.0); Mono # (Auto) 0.5 th/mm3 (0.0-0.9); Mono % (Auto) 11.8 % (0.0-8.0); Neut # (Auto) 2.1 th/mm3 (1.8-7.7); Neut % (Auto) 52.2 % (16.0-70.0); Platelet Count 222 th/mm3 (150-450); Red Blood Count 3.27 mil/mm3 (4.00-5.30); Red Cell Distribution Width 15.2 % (11.6-17.2)
[2018-03-16 09:05] LABS: Reticulocyte Percent 1.2 % (0.4-3.0)
[2018-03-16] MEDS: ChlorproMAZINE 50 MG Tablet PO SCH ×2 (09:45→20:25)
[2018-03-16] MEDS: Sodium Chloride 1 GM Tablet PO SCH (09:45)
[2018-03-16] MEDS: Polyethylene Glycol 3350 17 GM Packet PO SCH (09:50)
[2018-03-16] MEDS: Pantoprazole Sodium 20 MG DR Tablet PO SCH ×2 (09:50→20:26)
[2018-03-16] MEDS: Ciprofloxacin 500 MG Tablet PO SCH ×2 (09:50→20:26)
[2018-03-16] MEDS: Ferrous Sulfate 325 MG Tablet PO SCH (09:50)
[2018-03-16] MEDS: LITHIUM CITRATE 300 MG/5 ML PO SCH ×2 (09:50→20:26)
[2018-03-16] MEDS: Senna/Docusate Sodium 8.6/50 MG Tablet PO SCH (09:50)
[2018-03-16] MEDS: Enoxaparin Inj 80 MG/0.8 ML Syringe SQ SCH (10:00)
[2018-03-16 11:45] LABS: Alanine Aminotransferase 24 U/L (10-53); Albumin 3.3 g/dL (3.4-5.0); Alkaline Phosphatase 72 U/L (45-117); Anion Gap 4 meq/L (5-15); Aspartate Aminotransferase 17 U/L (15-37); Blood Urea Nitrogen 11 mg/dL (7-18); Calcium 9.3 mg/dL (8.5-10.1); Carbon Dioxide 26.8 meq/L (21.0-32.0); Chloride 109 meq/L (98-107); Glomerular Filtration Rate 68 mL/min (>89); Glucose,Random 90 mg/dL (74-106); Potassium 4.3 meq/L (3.5-5.1); Sodium 140 meq/L (136-145)
--- NOTE | 2018-03-16 11:45 | US ---
EXAM DATE: 03/16/2018 11:30 AM EST AGE/SEX: 52 years / Female INDICATIONS: Nausea and vomiting. CLINICAL DATA: This is the patient's initial encounter. Patient reports that signs and symptoms have been present for 1 day and indicates a pain score of 0/10. MEDICAL/SURGICAL HISTORY: . Hypothyroidism. HTN. Hyperlipidemia. Bipolar disorder. Depression. Schizophrenia. . Tonsillectomy. COMPARISON: [facility] – [place], [place] PELVIC COMPLETE, 02/13/2018. . MEASUREMENTS: Liver:__ 16.7 cm. Common Bile Duct:__ 5mm. FINDINGS: Liver: Normal echogenicity without focal lesion or ductal dilatation. Portal Vein: Hepatopedal flow seen in portal vein. Common Duct: No intraluminal mass or stone visualized. Gallbladder: Demonstrates no wall thickening or pericholecystic fluid. There is an echogenic gallsto ne measuring up to 1.9 cm with mild posterior shadowing. This appeared multiple.. Pancreas: The visualized portions are within normal limits Right Kidney: Normal echogenicity and cortical thickness. There is no mass or calculi. There is mild pyelocaliectasis. Other: None. CONCLUSION: 1. Echogenic gallstone with no wall thickening or pericholecystic fluid. 2. Mild pyelocaliectasis in the right kidney. Electronically signed by: Bijan Page MD 03/16/2018 11:44 AM EST
[2018-03-16] MEDS: ChlorproMAZINE 25 MG Tablet PO SCH ×2 (12:12→17:22)
--- NOTE | 2018-03-16 12:35 | P.PNONC ---
Subjective Interval history: Hematology reconsulted for recommendations in regards to changing Lovenox to Xarelto. Patient no longer on Tegretol. Patient has been followed peripherally, can refer to original consultation from Dr. Fisher on 02/05/2018. Patient unlocked psychiatric unit, RN at the bedside during exam. Patient sitting on the floor. She denies any shortness of breath, leg pain or bleeding. RN notes she has a bruise to her left buttock and a few scattered to her abdomen from Lovenox injections. RN also reports Lovenox injections have became a struggle with this patient. Patient verbalizes that she will be compliant with oral medication. Objective Vital Signs/Intake & Output: Vital Signs 03/15/18 16:56 03/16/18 06:10 03/16/18 10:00 Temperature 98.7 F 97.8 F 98.1 F Pulse Rate 87 85 83 Respiratory Rate 18 17 17 Blood Pressure 102/66 114/63 109/56 L Pulse Oximetry 100 95 Intake & Output 03/15/18 03/16/18 03/16/18 18:59 06:59 18:59 Weight 75.3 kg Other: Date of Last Bowel Movement 03/15/18 03/15/18 03/16/18 Result Diagrams: 03/16/18 08:28 03/16/18 08:28 Laboratory Results: Laboratory Results - last 24 hr 03/15/18 03/15/18 03/15/18 11:30 11:52 11:52 WBC RBC Hgb Hct MCV MCH MCHC RDW Plt Count MPV Neut % (Auto) Lymph % (Auto) [place] % (Auto) Eos % (Auto) Baso % (Auto) Neut # (Auto) Lymph # (Auto) [place] # (Auto) Eos # (Auto) Baso # (Auto) WBC Differential Differential Comment Retic Count Absolute Retic Sodium 140 Potassium 4.1 Chloride 106 Carbon Dioxide 26.6 Anion Gap 7 BUN 12 Creatinine 0.89 Estimated GFR 66 L Random Glucose 148 H Lactic Acid 1.1 Calcium 9.0 Ferritin Total Bilirubin 0.3 AST 22 ALT 27 Alkaline Phosphatase 93 Total Creatine Kinase 258 H CK-MB (CK-2) 4.5 H CK-MB (CK-2) % 1.7 Troponin I Total Protein 6.9 Albumin 3.9 Lipase 138 Urine Color Yellow Urine Clarity Cloudy H Urine pH 5.0 Ur Specific [place] 1.019 Urine Protein Negative Urine Glucose (UA) Negative Urine Ketones Negative Urine Occult Blood Small H Urine Nitrate Negative Urine Bilirubin Negative Urine Urobilinogen Less than 2 Ur Leukocyte Esterase Large H Urine RBC 2 Urine WBC 24 H Ur Squamous Epith Cells 1 Urine Bacteria Moderate H Urine Mucus Few H Micro UA Comment Culture indicated Ur Microscopic Review Not Reportable Urine Culture Comments Culture indicated 03/15/18 03/15/18 03/16/18 11:52 11:52 08:28 WBC 4.0 RBC 3.27 L Hgb 9.7 L Hct 28.6 L MCV 87.5 MCH 29.7 MCHC 34.0 RDW 15.2 Plt Count 222 MPV 8.6 Neut % (Auto) 52.2 Lymph % (Auto) 28.4 Franklin % (Auto) 11.8 H Eos % (Auto) 6.6 H Baso % (Auto) 1.0 Neut # (Auto) 2.1 Lymph # (Auto) 1.1 Franklin # (Auto) 0.5 Eos # (Auto) 0.3 Baso # (Auto) 0.0 WBC Differential . Differential Comment Auto diff final Retic Count Absolute Retic Sodium Potassium Chloride Carbon Dioxide Anion Gap BUN Creatinine Estimated GFR Random Glucose Lactic Acid Calcium Ferritin 56 Total Bilirubin AST ALT Alkaline Phosphatase Total Creatine Kinase CK-MB (CK-2) CK-MB (CK-2) % Troponin I Less than 0.02 L Total Protein Albumin Lipase Urine Color Urine Clarity Urine pH Ur Specific [place] Urine Protein Urine Glucose (UA) Urine Ketones Urine Occult Blood Urine Nitrate Urine Bilirubin Urine Urobilinogen Ur Leukocyte Esterase Urine RBC Urine WBC Ur Squamous Epith Cells Urine Bacteria Urine Mucus Micro UA Comment Ur Microscopic Review Urine Culture Comments 03/16/18 03/16/18 03/16/18 08:28 08:28 08:28 WBC RBC Hgb Hct MCV MCH MCHC RDW Plt Count MPV Neut % (Auto) Lymph % (Auto) [place] % (Auto) Eos % (Auto) Baso % (Auto) Neut # (Auto) Lymph # (Auto) [place] # (Auto) Eos # (Auto) Baso # (Auto) WBC Differential Differential Comment Retic Count 1.2 Absolute Retic 39.3 Sodium 140 Potassium 4.3 Chloride 109 H Carbon Dioxide 26.8 Anion Gap 4 L BUN 11 Creatinine 0.87 Estimated GFR 68 L Random Glucose 90 Lactic Acid Calcium 9.3 Ferritin Total Bilirubin 0.3 AST 17 ALT 24 Alkaline Phosphatase 72 Total Creatine Kinase CK-MB (CK-2) CK-MB (CK-2) % Troponin I Total Protein 6.0 L D Albumin 3.3 L D Lipase 112 Urine Color Urine Clarity Urine pH Ur Specific [place] Urine Protein Urine Glucose (UA) Urine Ketones Urine Occult Blood Urine Nitrate Urine Bilirubin Urine Urobilinogen Ur Leukocyte Esterase Urine RBC Urine WBC Ur Squamous Epith Cells Urine Bacteria Urine Mucus Micro UA Comment Ur Microscopic Review Urine Culture Comments 03/16/18 08:28 WBC RBC Hgb Hct MCV MCH MCHC RDW Plt Count MPV Neut % (Auto) Lymph % (Auto) [place] % (Auto) Eos % (Auto) Baso % (Auto) Neut # (Auto) Lymph # (Auto) [place] # (Auto) Eos # (Auto) Baso # (Auto) WBC Differential Differential Comment Retic Count Absolute Retic Sodium Potassium Chloride Carbon Dioxide Anion Gap BUN Creatinine Estimated GFR Random Glucose Lactic Acid Calcium Ferritin Total Bilirubin AST ALT Alkaline Phosphatase Total Creatine Kinase 95 CK-MB (CK-2) CK-MB (CK-2) % Troponin I Total Protein Albumin Lipase Urine Color Urine Clarity Urine pH Ur Specific [place] Urine Protein Urine Glucose (UA) Urine Ketones Urine Occult Blood Urine Nitrate Urine Bilirubin Urine Urobilinogen Ur Leukocyte Esterase Urine RBC Urine WBC Ur Squamous Epith Cells Urine Bacteria Urine Mucus Micro UA Comment Ur Microscopic Review Urine Culture Comments Culture Results: Microbiology 03/15/18 11:25 Stool Occult Blood (SHAWN) - Final Stool Hemoccult negative Imaging Studies: Impressions Chest X-Ray 03/15/18 00:00 CONCLUSION: No acute cardiopulmonary process. Gallbladder Ultrasound 03/16/18 00:00 CONCLUSION: 1. Echogenic gallstone with no wall thickening or pericholecystic fluid. 2. Mild pyelocaliectasis in the right kidney. Medications: Active Medications Generic Name Dose Route Start Last Admin Trade Name Freq PRN Reason Stop Dose Admin Acetaminophen 650 mg 01/16/18 20:17 03/14/18 11:56 Tylenol PO 650 mg Q4H PRN Administration Pain 1-5 or Temp >101F Al Hydrox/Mg Hydrox/Simethicone 30 ml 01/16/18 20:17 02/06/18 12:31 Mag-Al Plus Susp Liq PO 30 ml Q6H PRN Administration DYSPEPSIA Al Hydroxide/Mg Hydroxide 30 ml 01/16/18 20:17 11/07/18 05:20 Milk Of Magnesia Liq PO 30 ml Q12H PRN Administration Mild Constipation Atorvastatin Calcium 40 mg 01/17/18 11:30 03/16/18 09:50 Lipitor PO Not Given DAILY HAMZAH Chlorpromazine HCl 150 mg 03/10/18 09:00 03/16/18 09:45 Thorazine PO Not Given BID HAMZAH Chlorpromazine HCl 100 mg 03/10/18 13:00 03/16/18 12:12 Thorazine PO 100 mg BID@1300,1800 HAMZAH Administration Chlorpromazine HCl 25 mg 03/10/18 13:00 03/16/18 12:12 Thorazine PO 25 mg BID@1300,1800 HAMZAH Administration Ciprofloxacin HCl 500 mg 03/15/18 14:00 03/16/18 09:50 Cipro PO 03/18/18 13:59 Not Given Q12HR [facility] Enoxaparin Sodium 80 mg 02/19/18 09:00 03/16/18 10:00 Lovenox Inj SQ 80 mg Q12HR HAMZAH Administration Ferrous Sulfate 325 mg 02/06/18 09:00 03/16/18 09:50 Ferosul PO Not Given BID [facility] Levothyroxine Sodium 75 mcg 01/17/18 11:30 03/16/18 06:11 Synthroid PO 75 mcg DAILY@0600 HAMZAH Administration [place] Citrate 300 mg 03/12/18 21:00 03/16/18 09:50 Cibalith-S Liq PO Not Given Q12HR [facility] Lorazepam 1 mg 03/08/18 21:00 03/09/18 08:21 Ativan PO Not Given TID@0900,1300,2100 [facility] Metformin HCl 500 mg 01/17/18 11:30 03/16/18 09:50 Glucophage PO Not Given BIDPC [facility] Miscellaneous 1 each 02/02/18 20:12 02/17/18 00:25 Pill Splitter OTHER 1 each UNSCH PRN Administration PILL SPLITTER Multivitamins 1 tab 01/17/18 11:45 03/16/18 09:50 Theragran PO Not Given DAILY [facility] Ondansetron HCl 4 mg 03/16/18 10:17 03/16/18 10:30 Zofran Odt PO 4 mg Q6H PRN Administration NAUSEA OR VOMITING Padimate O 1 applicatio 01/17/18 15:00 02/20/18 04:39 Chapstick TOPICAL 1 applicatio UNSCH PRN Administration Dry lips Pantoprazole Sodium 20 mg 02/06/18 21:00 03/16/18 09:50 Protonix PO Not Given BID HAMZAH Polyethylene Glycol 17 gm 02/03/18 14:30 03/16/18 09:50 Miralax PO Not Given DAILY HAMZAH Senna/Docusate Sodium 1 tab 01/20/18 09:00 03/16/18 09:50 Sarahi-Colace PO Not Given DAILY HAMZAH Sodium Chloride 1 gm 01/18/18 09:00 03/16/18 09:45 Sodium Chloride PO Not Given DAILY HAMZAH Trazodone HCl 150 mg 03/13/18 10:45 03/15/18 21:25 Desyrel PO 150 mg HS HAMZAH Administration Objective Remarks: GENERAL: Disheveled appearing female patient, in no acute distress. SKIN: Warm and dry. Ecchymosis to left buttock, yellow and fading. HEAD: Normocephalic. EYES: No scleral icterus. No injection or drainage. NECK: Supple, trachea midline. CARDIOVASCULAR: Regular rate and rhythm without murmurs. RESPIRATORY: Posterior breath sounds clear, equal bilaterally. No accessory muscle use. GASTROINTESTINAL: Abdomen soft, non-tender, nondistended. EXTREMITIES: No cyanosis, or edema. MUSCULOSKELETAL: Adequate muscle tone. NEUROLOGICAL: No obvious focal deficit. Awake, alert, and oriented x3. PSYCHIATRIC: Calm. Assessment/Plan - Plan Ms. Evans is a 52-year-old lady whom I have been asked to see for further workup and management of a non-occlusive/chronic appearing right lower extremity deep venous thrombosis. This appears to be chronic because of its nonocclusive nature. She has symptoms of leg swelling and calf pain especially if she walks. Per the electronic health record, she had been on intermediate dose anticoagulation at the time of admission with Xarelto 10 mg once daily. She has no symptoms of difficulty breathing, pleuritic chest pain, cough or hemoptysis suggestive of pulmonary emboli. Plan: 1. Right lower extremity DVT, no swelling noted on exam. Continue on Lovenox. 2. Normocytic anemia. Repeat stool hemoccult was negative. Monitor for bleeding and periodic CBC checks. 3. Continue iron supplementation. 4. Patient is no longer on Tegretol. Lexicomp [id number] interactions checked with Xarelto and the patient's current psychiatric medications: Chlorpromazine, lithium, trazodone, no interactions noted. Her creatinine clearance by Cockcroft-Gault calculation is 88.5. She has been on therapeutic dosing Lovenox since 02/06/2018, we would therefore recommend transitioning her from Lovenox to Xarelto 20mg daily.
[2018-03-16] MEDS: Acetaminophen 325 MG Tablet PO PRN (13:13)
--- NOTE | 2018-03-16 13:45 | P.PNIM ---
Subjective Interval history: Follow up on patient with N/V. Patient seen and examined. Patient did well yesterday afternoon/evening. She had good appetite. No recurrence of N/V. This morning, patient has vomited multiple times. Unable to keep anything down. She did not eat breakfast. She says she feels "shitty" but does not give any specifics. She denies any fever or chills. She denies any headache or dizziness. She denies any chest pain or dyspnea. She denies any abdominal pain. She denies any dysuria or diarrhea. No blood in the vomitus per RN report. Physical Exam Vital signs: Last Vital Signs Temp 98.1 F 03/16/18 10:00 Pulse 83 03/16/18 10:00 Resp 17 03/16/18 10:00 BP 109/56 L 03/16/18 10:00 Pulse Ox 95 03/16/18 06:10 Intake & Output 03/14/18 03/15/18 03/16/18 03/17/18 06:59 06:59 06:59 06:59 Weight 75.3 kg Narrative: GENERAL: Well-developed, well-nourished female in no acute distress. Disheveled. Awake and alert. Inappropriate behavior noted. SKIN: Warm and dry. HEENT: Atraumatic. Normocephalic. Pupils equal and round. No scleral icterus. No injection or drainage. No nasal bleeding or discharge. NECK: Trachea midline. CARDIOVASCULAR: Regular rate and rhythm. No murmur appreciated. RESPIRATORY: No accessory muscle use. Clear to auscultation. Breath sounds equal bilaterally. GASTROINTESTINAL: Abdomen soft, non-tender, nondistended. +BS. MUSCULOSKELETAL: Extremities without clubbing, cyanosis, or edema. No obvious deformities. NEUROLOGICAL: Awake and alert. No obvious cranial nerve deficits. Motor grossly within normal limits. Able to move all extremities. Normal speech. PSYCHIATRIC: Inappropriate, blowing kisses, trying to spread her legs, yelling out to the male CNAs. Cooperative with exam; insight and judgment very poor. Results Labs CBC & Chem 7: 03/16/18 08:28 03/16/18 08:28 Labs: Microbiology 03/15/18 11:25 Stool Stool Occult Blood (SHAWN) - Final Hemoccult negative Imaging Imaging: Impressions Assessment and Plan (1) Bipolar affective, manic, severe w/ psych: Code(s): F31.2 - Bipolar disorder, current episode manic severe with psychotic features Status: Acute (2) Cannabis abuse: Code(s): F12.10 - Cannabis abuse, uncomplicated Status: Acute Plan 52-year-old white female admitted for acute hyponatremia and acute shelley with past medical history of DVT, and diabetes mellitus type 2. 03/15 STAT reconsult for dark black stools and emesis of green bile x 2 -last vital signs recorded on 03/14 at 0600 BP 101/54, P 97, Resp 18, Temp 97.2, O2 sat 95 Patient does not appear septic bedside BS 107 CXR shows no acute cardiopulmonary process, images reviewed by me no leukocytosis, H/H appears stable. Electrolytes are normal. LFTs are normal. Lipase 138. Lactic acid 1.1. Troponin <0.02. CPK is mildly elevated at 258. stool occult neg x 2 -patient with dark stools on iron supplementation. H/H stable. Will repeat CBC in am. -episode of emesis after eating her own feces. Labs unremarkable as above. Resume diet. Encourage po fluid intake. Discourage patient from eating feces. 03/16 recurrent N/V -able to tolerate dinner last night. This morning, recurrent episodes of clear emesis. Unable to tolerate her medications or breakfast. Patient denies any specific complaints. No diarrhea. ?due to UTI. -afebrile, VSS except for low BP which is her norm. -repeat labs today - no leukocytosis. CMP is unremarkable. Normal lipase. -Zofran prn -hold Metformin, iron and miralax -encourage fluid intake -obtain gallbladder US UTI Urinalysis with small blood, large leukocytes, 24 white blood cells, moderate bacteria, cx indicated -started on po Cipro x 3 days, continue -follow up on final urine culture results/pending Acute shelley/acute psychosis Altered mental status Likely related to psychosis and noncompliance in taking medications -with worsening symptoms, likely related to patient noncompliance and refusing to take p.o. medications extensive psych hx of schizophrenia and bipolar and long antipsychotic allergy list -lithium level 0.5 03/14 -Management with psychiatric team -Workup negative and ruled out metabolic causes -Monitor mental status Right lower extremity DVT Dependant bilateral lower extremity swelling, improved -LE US with noted nonocclusive thrombus within right proximal and distal femoral vein and profundus vein. -Currently on therapeutic dose of Lovenox until possible alternative psychotropics are established. -Encourage elevation and ambulation -Patient now complaint with po medications. No longer on Tegretol. Re- evaluated by Hematology who recommends transitioning from Lovenox injections to Xarelto 20mg daily. Diabetes Mellitus Type2, controlled -Blood sugar controlled -continue on Metformin 500mg BID - on hold now 2/2 N/V. -HgbA1c 5.7 -Follow up with PCP in 3 months Monitor blood sugars, Accu-Check BID Hypotonic hyponatremia Improved, stable. -Random urine sodium wnl, urine osmolality low. F/u lithium level. Possible medication induced SIADH vs GI losses -continue Sodium tabs daily. Monitor sodium. Na 140 03/16. Iron deficiency anemia/Normocytic Anemia -Hematology has started patient on iron supplementation. -Stool for occult blood negative x 2 -Continue iron supplements, monitor CBC -patient with poor PO intake, encourage p.o. diet -Continue ensure on Diet History of/hyperlipidemia/hypothyroidism - continue home medications, atorvastatin, Synthroid - TSH 0.773 - Lipid panel stable DVT prop Lovenox Progress Note: Quality VTE Deep Vein Thrombosis/Pulmonary Embolism Present on Admission: No
--- NOTE | 2018-03-16 14:24 | P.PNPSY ---
Subjective Chief Complaint: Bipolar I Disorder - current Manic Episode Remarks: Patient seen for follow-up, chart reviewed. Discussion with nursing staff reported that patient had emesis since yesterday as well as this morning which medications were held and repeat labs show stable anemia with Hemoccult negative , currently on ciprofloxacin for UTI. Patient also was reported to have been playing with her feces yesterday and probable ingestion of the same which patient began her episode of emesis. Abdominal ultrasound was negative for any acute findings. Patient was found standing in hospital room noted to be calm and cooperative. Patient noted to have less somatization during interview this morning was able to maintain adequate attention and concentration to interview although would at times patient she was noted to have some disorganization. Patient denies any physical complaints at this time, did admit to having emesis this morning but denying any other symptoms other than the nausea and vomiting. She continues to comply with medications, continues to require redirection but not able to tolerate being in the room and attending groups. Review of Systems All other systems reviewed negative except as stated in HPI Mental Status Examination Appearance: Appropriate, Other (Disrobing at times) Consciousness: Alert, Highly distractible (lessening) Orientation: Person, Place Motor Activity: Other Speech: Pressured (Lessening) Language: Other (Occasional clang association is) Fund of Knowledge: Poor Attention and Concentration: Inadequate Memory: Unremarkable Mood: Other ("fine") Affect: Labile (At times) Thought Process & Associations: Loose associations (Lessening), Disorganized ( Lessening), Tangential (Lessening) Thought Content: Bizarre thinking, Racing thoughts (Decreasing) Hallucination Type: None Delusion Type: Bizarre, Paranoid Suicidal Ideation: No Suicidal Plan: No Suicidal Intention: No Homicidal Ideation: No Homicidal Plan: No Homicidal Intention: No Insight: Poor Judgment: Poor Assessment and Plan - Assessment (1) Bipolar affective, manic, severe w/ psych Code(s): F31.2 - Bipolar disorder, current episode manic severe with psychotic features Status: Acute (2) Cannabis abuse Code(s): F12.10 - Cannabis abuse, uncomplicated Status: Acute - Plan Plan: Patient continues to have episodes of disorganization, particularly playing with her feces yesterday requiring redirection. Labs reviewed, lithium level 0.5, we will continue to monitor and trend. Patient continues to require one- to-one observation . For safety. We will continue current treatment regimen, continue to monitor mood and behavior. Hospitalist input appreciated hematology consult input appreciated. Discharge planning in progress. Justification for Continued Inpatient Stay: At risk of further decompensation at lower level care. Request Healthcare Surrogate/Guardian Advocate?: Yes
--- NOTE | 2018-03-16 18:52 | ECG ---
Date Performed: 03/15/2018 Time Performed: 12:26:18 PTAGE: 52 years EKG: Sinus rhythm NORMAL ECG PREVIOUS TRACING : 03/10/2018 10.22 Since the previous tracing, no significant change noted DOCTOR: Moises Cavazos Interpretating Date/Time 03/16/2018 18:51:26
[2018-03-16] MEDS: traZODone 100 MG Tablet PO SCH (20:25)
[2018-03-16] MEDS ORDERED: Enoxaparin Inj 80 MG/0.8 ML Syringe SQ ONE (21:00)
[2018-03-17] MEDS: Levothyroxine 75 MCG Tablet PO SCH (06:14)
[2018-03-17] MEDS: LITHIUM CITRATE 300 MG/5 ML PO SCH ×3 (08:03→18:06)
[2018-03-17] MEDS: Ciprofloxacin 500 MG Tablet PO SCH (08:03)
[2018-03-17] MEDS: Pantoprazole Sodium 20 MG DR Tablet PO SCH ×2 (08:04→20:36)
[2018-03-17] MEDS: Sodium Chloride 1 GM Tablet PO SCH (08:04)
[2018-03-17] MEDS: ChlorproMAZINE 50 MG Tablet PO SCH ×2 (08:04→20:36)
[2018-03-17] MEDS: Senna/Docusate Sodium 8.6/50 MG Tablet PO SCH (08:04)
[2018-03-17] MEDS: Rivaroxaban 20 MG Tablet PO SCH (08:31)
--- NOTE | 2018-03-17 10:35 | P.PNPSY ---
Subjective Chief Complaint: Bipolar I Disorder - current Manic Episode Remarks: Patient seen and examined with nurse, Agnieszka, in coverage for Dr. Dodson. Chart reviewed. Case discussed with nursing staff who reports patient is for HIDA scan today. Patient's behavior reportedly remains quite disturbed on the unit, and she is frequently noted to be screaming and disrobing on the unit, redirected with no small difficulty by her one-to-one sitter. She also continues to engage in intermittent attempts at coprophagia and playing with her excreta per nursing. Case discussed in treatment team. On my examination today, patient is noted to be disinhibited and endeavors to kiss the sitter attending to her. She is distractible. She denies SI/HI. She denies side effects from medications and is agreeable to titration of her lithium. No acute physical complaints. Vital Signs Temp Pulse Resp BP Pulse Ox 03/17/18 06:00 98.2 F 90 18 109/69 97 03/16/18 15:25 98.7 F 89 18 134/77 98 Intake and Output 03/16/18 03/17/18 03/17/18 22:59 06:59 14:59 Other: Date of Last Bowel Movement 03/16/18 Laboratory Tests 03/10/18 03/14/18 03/15/18 11:29 06:20 11:30 WBC Hgb MCV Plt Count Sodium Potassium Chloride Carbon Dioxide BUN Creatinine Estimated GFR Lactic Acid Ferritin AST ALT Alkaline Phosphatase Total Creatine Kinase TSH 2.290 Urine Color Yellow Urine Clarity Cloudy H Urine pH 5.0 Ur Specific [place] 1.019 Urine Protein Negative Urine Glucose (UA) Negative Urine Ketones Negative Urine Occult Blood Small H Urine Nitrate Negative Urine Bilirubin Negative Urine Urobilinogen Less than 2 Ur Leukocyte Esterase Large H Urine RBC 2 Urine WBC 24 H Ur Squamous Epith Cells 1 Urine Bacteria Moderate H Urine Mucus Few H Aurelia 0.5 03/15/18 03/15/18 03/16/18 11:52 11:52 08:28 WBC 4.0 Hgb 9.7 L MCV 87.5 Plt Count 222 Sodium Potassium Chloride Carbon Dioxide BUN Creatinine Estimated GFR Lactic Acid 1.1 Ferritin 56 AST ALT Alkaline Phosphatase Total Creatine Kinase TSH Urine Color Urine Clarity Urine pH Ur Specific [place] Urine Protein Urine Glucose (UA) Urine Ketones Urine Occult Blood Urine Nitrate Urine Bilirubin Urine Urobilinogen Ur Leukocyte Esterase Urine RBC Urine WBC Ur Squamous Epith Cells Urine Bacteria Urine Mucus Aurelia 03/16/18 03/16/18 08:28 08:28 WBC Hgb MCV Plt Count Sodium 140 Potassium 4.3 Chloride 109 H Carbon Dioxide 26.8 BUN 11 Creatinine 0.87 Estimated GFR 68 L Lactic Acid Ferritin AST 17 ALT 24 Alkaline Phosphatase 72 Total Creatine Kinase 95 TSH Urine Color Urine Clarity Urine pH Ur Specific [place] Urine Protein Urine Glucose (UA) Urine Ketones Urine Occult Blood Urine Nitrate Urine Bilirubin Urine Urobilinogen Ur Leukocyte Esterase Urine RBC Urine WBC Ur Squamous Epith Cells Urine Bacteria Urine Mucus Aurelia Labs reviewed. Aurelia level noted to be somewhat low at 0.5. Renal function improved 03/10 to 03/15 and TSH is within normal limits. Microbiology 03/15/18 11:30 Urine Culture - Final Clean Catch Urine Escherichia coli Pseudomonas aeruginosa Sensitivities reviewed. E Coli is Cipro resistant and is the dominant organism. I have spoken with A Kvng with the hospitalist team, and she will adjust antibiotic therapy as appropriate. Impressions Gallbladder Ultrasound 03/16/18 00:00 CONCLUSION: 1. Echogenic gallstone with no wall thickening or pericholecystic fluid. 2. Mild pyelocaliectasis in the right kidney. Bile Acid Absorption NM 03/17/18 13:51 CONCLUSION: 1. Normal gallbladder visualization no evidence of biliary obstruction. 2. Normal calculated ejection fraction of approximately 70%. Review of Systems All other systems reviewed negative except as stated in HPI Mental Status Examination Appearance: Disheveled Consciousness: Alert, Highly distractible Orientation: Person, Place (at least) Motor Activity: Other (No tremor, no dystonia, no dyskinesia, no other motor abnormalities noted.) Speech: Rapid Language: Other (Rambling) Fund of Knowledge: Poor Attention and Concentration: Inadequate Memory: Unremarkable Mood: Anxious Affect: Labile Thought Process & Associations: Loose associations, Tangential Thought Content: Bizarre thinking, Delusional Hallucination Type: None Delusion Type: Bizarre Suicidal Ideation: No Homicidal Ideation: No Insight: Poor Judgment: Poor Assessment and Plan - Assessment (1) Bipolar affective, manic, severe w/ psych Code(s): F31.2 - Bipolar disorder, current episode manic severe with psychotic features Status: Acute (2) Cannabis abuse Code(s): F12.10 - Cannabis abuse, uncomplicated Status: Acute - Plan Plan: Titrate lithium citrate to 300 mg 3 times daily for mood stabilization with plans to check a lithium level and BMP at the end of the week. Continue Thorazine, trazodone and scheduled Ativan as ordered. Continue one-to-one sitter for behavioral redirection. Hospitalist input appreciated. Continue to monitor on the high acuity unit. Continue other care as ordered. Justification for Continued Inpatient Stay: Medication changes. Impairment in self-care. Impairment in reality construction. High risk for decompensation in less restrictive environment. Discharge Planning: Per Dr. Dodson. Request Healthcare Surrogate/Guardian Advocate?: Yes
[2018-03-17] MEDS ORDERED: Sincalide Inj 5 MCG Vial IV.PUSH ONE (11:23)
--- NOTE | 2018-03-17 12:06 | P.TTN ---
- Patient Problems Problems: 1. Discharge planning 2. Medication compliance 3. Knowledge deficit 4. Lack of coping skills - Progress Toward Goals Provider Present: Dr. Amparo Dodson (February 02, 2018 patient's shelley is softening, Dr. Dodson intends to remove the one-on-one, titrating medications, patient remains for further stabilization. February 04, 2018 patient remains manic, irritable, and needs to remain for further stabilization.) Provider Input: 03/16/2018; per psychiatrist, patient medication contiues to require adjustment, due to inappropriate sexual behavior. 03/09/2018 Patient still meets criteria to remain on the unit. Yesterday she wanted to bolt through the locked doors to go after a male. She is very sexually inappropriate. 03/04/18; patient is not stable at this point, medication is still be adjust. 03/02/2018; patient is refusing medication and will be given IM; patient is delusional and responding to internal stimuli. 02/23: Pt, over this weekend, has refused all medications. Pt is currently 1:1 per her instability. Pt currently has DVT. Options include pt to accept medication for recommended tx, ECT via court order, [facility]. Isaac, counselor, to follow up with [facility] application and with pt to return to court [place] for court to rule on ECT as option. 02/18/18: Pt is being titrated on Lorazepam and Tegretal with subcutaneous Lovenox an impediment to pt being placed in [facility]. Pt does not currently meet SNF placement, OTR consults with Therapy Dept to confirm pt not meeting SNF status. to consult with hemotologist re: options for Lovenox (ie: P.O. medication) to increase dc options. 02/16/18: pt continuing medication; patient is continuing to slowly stabalize, continue medication mangement. manager rn case is continuing to work on locating safe placement for [facility] - at this time reviewing [facility]. 02/11/18: pt currently on tegretal 350 BID; pt is slowly stabilizing, further medication adjustments limited relative to pt's elevated sodium issues. Pt's sister has indicated she would like pt to remain at [facility] until pt is stabilized so pt can return to [facility]. Pt continues to meet in-pt criteria. 02/09/18: Pt continues to be manic, hyperverbal, intrusive and needs to remain for further stabilization. Tegrertal being titrated. Collateral from pt's sister is that pt continues to exhibit shelley. 01/28: Adjusting and increasing pt's medications today, pt is homeless, case management is working on placement to [facility], watch water intake due to decrease in sodium Nurse(s) Present: RN Nurse Input: 03/16/2018;per RN patient requires ongoing redirection, very inappropriate behavior, playing with her feces, very sexual, unable to follow verable ques. 03/09/2018 Patient still requires 1:1 touch. Intrusive and attempts to touch others. 03/04/2018; patient is responding to internal stimuli , requires 1:1, still refuse medication, and very nonsensical with thoughts. ; patient is responding to internal stimuli, she is difficult to redirect, with nonsensical thoughts. 02/16/18: pt continuing hyperverbal, pt continuing to socialize, rapid pressure speech and is continuing to be medication compliant. 01/28: Pt remains manic, hyperverbal, religiously preoccupied, rapid pressured speech, med compliant Psychiatric Counselors Present: Isaac Lentz Jr., [facility] (Counselor spoke with Alice from [facility]. Alice is requesting the patient will return to their facility upon discharge), Steffanie Liz, [facility], Other Psychiatric Therapist Input: 03/16/2018; counselor will continue to move towards ECT plan with treating psychiatrist, state package has been submitted. 03/09/2018 Still looking for ECT placement and State should have already been implemented. 03/04/2018; dc placement remain the same, dc to [facility] when stable if appropriate if not to a different [facility]. 03/02/2018; patient placement is still in review, to determine if returning to [facility] is appropriate verse a higher level of care. 02/16/18: pt is improving slowly, manager rn case is to work on finding different placement, at this time reviewing [facility], as of Friday02/13/18 pt was still improving per provider. 02/09/18: Pt plof was [facility], current plan is for pt to return when stabilized. Pt currrently meets criteria for in-pt status. Group Spec/RT/OT/BARRERA Present: Litzy Santacruz, GPS, HOLLY Ratliff ( Patient attends select groups and is redirectable.), Rasta Archibald, OT, HOLLY Harper (February 02, 2018 patient attends select groups and is redirectable), Other Group Spec/RT/OT/BARRERA Input: 03/16/2018; per OT patient is too inappropriate for most group, and unable to participate. 03/09/2018 Unable to participate in any group activities. 03/04/2018 patient is unable to participate with groups. 03/02/2018; patient is unable to participate with groups or activities at this time. 02/23: Pt continues to participate in most groups, she is able to be appropriate but continues to act intrusively, requiring frequent redirection. 02/18/18: Pt ontinues to participate in groups, patient continues looking forward to socialization and participation but she continues to moderately intrusive and hyperverbal. 02/16/18: pt continues to participate in groups, patient continues looking forward to socialization and participation. 02/11/18: Pt attends most groups lately but she continues to moderately intrusive and hyperverbal, she is consistently in other people's business. Pt is redirectable with moderate effort, she is able to exercise more self-control though still needs external cuing to do so. 02/09/18: Pt attends select groups, she is intrusive, hyperverbal, needs repeated, nearly constant re-direction. : Pt attends select groups with 1:1 and constant redirection to remain quiet , focused, seated. Manic, intrusive, hyperverbal, increase in participation noted, pt is able to complete simple tasks Clinical Coordinator: Tasha Mathews [facility] Additional Input: 02/23: Isaac, counselor, to follow up [facility] and with pt to return to court [place] for court to rule on ECT as option. 02/11/18: Pt's sister has indicated she would like pt to remain at [facility] until pt is stabilized so pt can return to [facility]. Pt continues to meet in-pt criteria. 02/09/18: Pt plof was [facility], current plan is for pt to return when stabilized. Pt currrently meets criteria for in-pt status. - Discharge Plan Other (Further evaluation for [facility] placement - at this time reviewing opportunity for [facility]) 02/18/18: Pt does not currently meet SNF placement, OTR consults with Therapy Dept to confirm pt not meeting SNF status. MD to consult with hemotologist re: options for Lovenox (ie: P.O. medication) to increase dc options. 02/11/18: Pt's sister has indicated she would like pt to remain at [facility] until pt is stabilized so pt can return to [facility]. Pt continues to meet in-pt criteria. 01/28: Pt discharge planning in progress with placement to [facility] - Documentation Teaching Recipient: Patient
--- NOTE | 2018-03-17 12:28 | NM ---
EXAM DATE: 03/17/2018 12:17 PM EST AGE/SEX: 52 years / Female INDICATIONS: Nausea and vomiting. Abnormal ultrasound with echogenic gallstone with no wall thickeni ng or pericholecystic fluid. CLINICAL DATA: This is the patient's initial encounter. Patient reports that signs and symptoms have been present for 1 day and indicates a pain score of 2/10. MEDICAL/SURGICAL HISTORY: Hypertension. Bipolar. None. COMPARISON: [facility] [place] ABDOMEN - GALLBLADDER, 03/16/2018. . DOSE: 4.1 mCi Tc-99m mebrofenin i.v. Medication: 1.5 mcg Cholecystokinin IV No symptomatic response Cholecystokinin was administered by slow infusion over 8 minutes beginning at 60 minutes. minutes. TECHNIQUE: Following the intravenous administration of radiotracer, dynamic sequential images were pe rformed with continuous acquisition. Time-activity curves were generated. FINDINGS: Hepatic Kinetics: There is prompt uptake of radiotracer in the liver. No focal defects are seen. Ther e is normal rate of washout from the hepatic parenchyma. Biliary Clearance: Activity is first seen in the extrahepatic biliary system at 10 minutes. There is normal excretion into the small bowel. Gallbladder: Activity is first seen in the gallbladder at 25 minutes. Post-CCK: After CCK administration, there is emptying of the gallbladder with a 70% ejection fraction . Common bile duct kinetics are normal and there is no evidence of biliary obstruction. No symptomat ic response after cholecystokinin infusion. Biliary-Enteric Reflux: None observed. CONCLUSION: 1. Normal gallbladder visualization no evidence of biliary obstruction. 2. Normal calculated ejection fraction of approximately 70%. Electronically signed by: Bijan Page MD 03/17/2018 12:26 PM EST
[2018-03-17] MEDS: ChlorproMAZINE 25 MG Tablet PO SCH ×2 (12:50→18:05)
--- NOTE | 2018-03-17 16:43 | P.PN ---
Subjective Interval history: Follow up on patient with N/V. Patient seen and examined in day room, eating snack. Sitter at bsd. Pt. has no complaints, no cp, no sob. No abd. pain. Has a good appetite. No acute changes overnight. Physical Exam Vital signs: Vital Signs 03/17/18 06:00 Temperature 98.2 F Pulse Rate 90 Respiratory Rate 18 Blood Pressure 109/69 Pulse Oximetry 97 Intake & Output 03/16/18 03/17/18 03/17/18 18:59 06:59 18:59 Other: Date of Last Bowel Movement 03/16/18 03/16/18 Narrative: GENERAL: Well-developed, well-nourished female in no acute distress. Disheveled. Awake and alert. Inappropriate behavior noted. SKIN: Warm and dry. HEENT: Atraumatic. Normocephalic. Pupils equal and round. No scleral icterus. No injection or drainage. No nasal bleeding or discharge. NECK: Trachea midline. CARDIOVASCULAR: Regular rate and rhythm. No murmur appreciated. RESPIRATORY: No accessory muscle use. Clear to auscultation. Breath sounds equal bilaterally. GASTROINTESTINAL: Abdomen soft, non-tender, nondistended. +BS. MUSCULOSKELETAL: Extremities without clubbing, cyanosis, trace ankle edema. No obvious deformities. NEUROLOGICAL: Awake and alert. No obvious cranial nerve deficits. Motor grossly within normal limits. Able to move all extremities. Normal speech. PSYCHIATRIC: Sitting up with sitter, cooperative with exam. Insight and judgement poor. Blows kisses at undersigned. Results - Labs CBC & Chem 7: 03/16/18 08:28 03/16/18 08:28 Microbiology 03/15/18 11:30 Clean Catch Urine Urine Culture - Final Escherichia coli Pseudomonas aeruginosa - Imaging Impressions Bile Acid Absorption NM 03/17/18 13:51 CONCLUSION: 1. Normal gallbladder visualization no evidence of biliary obstruction. 2. Normal calculated ejection fraction of approximately 70%. Assessment and Plan - Assessment (1) Bipolar affective, manic, severe w/ psych Code(s): F31.2 - Bipolar disorder, current episode manic severe with psychotic features Status: Acute (2) Cannabis abuse Code(s): F12.10 - Cannabis abuse, uncomplicated Status: Acute - Plan 52-year-old white female admitted for acute hyponatremia and acute shelley with past medical history of DVT, and diabetes mellitus type 2. 03/15 STAT reconsult for dark black stools and emesis of green bile x 2 -last vital signs recorded on 03/14 at 0600 BP 101/54, P 97, Resp 18, Temp 97.2, O2 sat 95 Patient does not appear septic bedside BS 107 CXR shows no acute cardiopulmonary process, images reviewed by me no leukocytosis, H/H appears stable. Electrolytes are normal. LFTs are normal. Lipase 138. Lactic acid 1.1. Troponin <0.02. CPK is mildly elevated at 258. stool occult neg x 2 -patient with dark stools on iron supplementation. H/H stable. Will repeat CBC in am. -episode of emesis after eating her own feces. Labs unremarkable as above. Resume diet. Encourage po fluid intake. Discourage patient from eating feces. -stable, tolerating diet well. No nausea today 03/16 recurrent N/V, labs repeated, normal lipase, ? meds, UTI. -today tolerated diet well, no N/V. -Zofran PRN -held Metformin, iron and miralax -encourage fluid intake -Gallbladder US done, Normal gallbladder visualization no evidence of biliary obstruction/Normal calculated ejection fraction of approximately 70%. UTI Urinalysis with small blood, large leukocytes, 24 white blood cells, moderate bacteria, cx indicated -started on po Cipro x 3 days, sens noted. Resistant. -UC + ecoli (>100,000) + pseu Aeur. (15,000 -changed to Ceftin 250 mg PO BID x 5 days. Acute shelley/acute psychosis Altered mental status Likely related to psychosis and noncompliance in taking medications -with worsening symptoms, likely related to patient noncompliance and refusing to take p.o. medications extensive psych hx of schizophrenia and bipolar and long antipsychotic allergy list -lithium level 0.5 03/14 -Management with psychiatric team -Workup negative and ruled out metabolic causes -Monitor mental status Right lower extremity DVT Dependant bilateral lower extremity swelling, improved -LE US with noted nonocclusive thrombus within right proximal and distal femoral vein and profundus vein. -Currently on therapeutic dose of Lovenox until possible alternative psychotropics are established. -Encourage elevation and ambulation -Patient now complaint with po medications. No longer on Tegretol. Re- evaluated by Hematology who recommended transitioning from Lovenox injections to Xarelto 20mg daily. Diabetes Mellitus Type2, controlled -Blood sugar controlled -continue on Metformin 500mg BID - on hold now 2/2 N/V. -HgbA1c 5.7 -Follow up with PCP in 3 months Monitor blood sugars, Accu-Check BID Hypotonic hyponatremia Improved, stable. -Random urine sodium wnl, urine osmolality low. F/u lithium level. Possible medication induced SIADH vs GI losses -continue Sodium tabs daily. Monitor sodium. Na 140 03/16. Iron deficiency anemia/Normocytic Anemia -Hematology has started patient on iron supplementation. -Stool for occult blood negative x 2 -Continue iron supplements, monitor CBC -patient with poor PO intake, encourage p.o. diet -Continue ensure on Diet History of/hyperlipidemia/hypothyroidism - continue home medications, atorvastatin, Synthroid - TSH 0.773 - Lipid panel stable DVT prop Loveno Code Status: Full code Discussed Condition With: RN, pt. Discharge Planning: Per psych team
[2018-03-17] MEDS: traZODone 100 MG Tablet PO SCH (20:35)
[2018-03-18] MEDS: Levothyroxine 75 MCG Tablet PO SCH (05:06)
[2018-03-18] MEDS: Rivaroxaban 20 MG Tablet PO SCH (08:40)
[2018-03-18] MEDS: Pantoprazole Sodium 20 MG DR Tablet PO SCH ×2 (08:41→21:01)
[2018-03-18] MEDS: ChlorproMAZINE 50 MG Tablet PO SCH ×2 (08:41→21:02)
[2018-03-18] MEDS: LITHIUM CITRATE 300 MG/5 ML PO SCH ×3 (08:41→17:21)
[2018-03-18] MEDS: Sodium Chloride 1 GM Tablet PO SCH (08:41)
[2018-03-18] MEDS: Senna/Docusate Sodium 8.6/50 MG Tablet PO SCH (08:41)
--- NOTE | 2018-03-18 11:37 | P.PNPSY ---
Subjective Chief Complaint: Bipolar I Disorder - current Manic Episode Remarks: Patient seen for follow-up, chart reviewed. Discussion with nursing staff reported that patient continues to show require redirection, but is more compliant with medications, this morning had thrown coffee and other food items in the room. Patient was found to ambulate around the unit was able to be redirected back to her room after being found sitting in the hallway. Patient able to maintain attention during interview was very concrete responses continue be sexually inappropriate approaching telegraphic typewriter operator chief several times to make physical contact but continue to be redirected easily back. Patient was encouraged to maintain her room clean and to cooperate with staff which she is simply not smiles he continues to blow kisses in a sexually inappropriate manner. Review of Systems All other systems reviewed negative except as stated in HPI Mental Status Examination Appearance: Disheveled Consciousness: Alert, Highly distractible Orientation: Person, Place (at least) Motor Activity: Other (No tremor, no dystonia, no dyskinesia, no other motor abnormalities noted.) Speech: Rapid Language: Other (Rambling) Fund of Knowledge: Poor Attention and Concentration: Inadequate Memory: Unremarkable Mood: Anxious Affect: Labile Thought Process & Associations: Loose associations, Tangential Thought Content: Bizarre thinking, Delusional Hallucination Type: None Delusion Type: Bizarre Suicidal Ideation: No Suicidal Plan: No Suicidal Intention: No Homicidal Ideation: No Homicidal Plan: No Homicidal Intention: No Insight: Poor Judgment: Poor Assessment and Plan - Assessment (1) Bipolar affective, manic, severe w/ psych Code(s): F31.2 - Bipolar disorder, current episode manic severe with psychotic features Status: Acute (2) Cannabis abuse Code(s): F12.10 - Cannabis abuse, uncomplicated Status: Acute - Plan Plan: Patient continues with sexual preoccupation, continues with poor impulse control and require redirection. Patient continued disrobing and being intrusive with staff and patients. [place] recently increased we will continue current treatment. We will continue to monitor with behavior. We will draw lithium level and appropriate interval. Hospital input appreciated. Patient presented to mental health court tomorrow for ECT hearing. Discharge planning in progress. Justification for Continued Inpatient Stay: At risk of further decompensation at lower level care. Request Healthcare Surrogate/Guardian Advocate?: Yes
--- NOTE | 2018-03-18 12:46 | P.DIET ---
Nutritional Evaluation Type of nutrition evaluation: follow-up Nutrition consult regarding: Diet Evaluation Nutrition screening: Poor PO Intake Screening comments: 02/27 MDC for poor PO intake 03/02 MDC for poor PO intake Subjective Subjective Comments: Nursing staff reports pt is drinking the Glucerna Shakes, including when she skips a breakfast meal, pt drinks the shakes. Objective - Diagnosis bipolar disoder - Objective % IBW: 121 (IBW = 145lb) Body Weight Used for Calculations: Actual Energy Needs - Lower Range (kCal/kg): 25 Energy Needs - Upper Range (kCal/kg): 30 Lower Limit kCal/kg (kCals): 1,990 Upper Limit kCal/kg (kCals): 2,388 Lower Limit Protein Factor (Grams per Kg): 1.1 Upper Limit Protein Factor (Grams per Kg): 1.3 Lower Protein Needs (Protein): 88 Upper Protein Needs (Protein): 103 Dietitian Reviewed in Medical Record: Current diet, Curent medications, Intake & Output, Labs, Medical history Diet Order: 1800 ADA Oral Diet Intake Amount: Good 75-90% Objective Comments: PMH: anemia, bipolar, depression, HLD, HTN, hypothyroid, schizophrenia A1C 5.7, Glucose 90(03/16/18) Meds include: Glucophage, Theragran, Protonix, Trazodone, Lipitor, Synthroid Feeding - Current PO Supplement Current Supplement: Glucerna Shake Current Frequency of Supplement: Three times a day Current kCals Provided by Supplement: 220 Current Protein Provided by Supplement: 10 Assessment Assessment: Pt. continues at nutritional risk r/t poor po intake. PO intake now improved w/ pt averaging 2-meals daily w/50% po intake. Continue Glucerna Shakes TID per MD. Labs reviewed. Wt changes noted. Dietitian following. Recommendations: 1. Continue Glucerna Shakes TID per MD 2. Dietitian following Dietitian to Monitor: Lab values, Glucose level, Supplement acceptance, Intake & Output, Weight change, PO Intake, Medical course
--- NOTE | 2018-03-18 12:56 | P.PN ---
Subjective Interval history: Follow up on patient with N/V. Patient seen and examined in day room, ambulating without any difficulties. Sitter at bsd. Per RN, eating well, no n/ v. Pt. examined, denies any abd. pain. No N/V. Pt. remains inappropriate, tries to grab staff. Has not been observed eating her own excrement. Physical Exam Vital signs: Vital Signs 03/17/18 18:39 03/18/18 05:35 Temperature 97.3 F L 98.2 F Pulse Rate 91 H 92 H Respiratory Rate 18 17 Blood Pressure 90/61 L 113/55 L Pulse Oximetry 97 97 Intake & Output 03/17/18 03/18/18 03/18/18 18:59 06:59 18:59 Other: Date of Last Bowel Movement 03/16/18 Narrative: GENERAL: Well-developed, well-nourished female in no acute distress. Disheveled. Awake and alert. Inappropriate behavior noted. SKIN: Warm and dry. HEENT: Atraumatic. Normocephalic. Pupils equal and round. No scleral icterus. No injection or drainage. No nasal bleeding or discharge. NECK: Trachea midline. CARDIOVASCULAR: Regular rate and rhythm. No murmur appreciated. RESPIRATORY: No accessory muscle use. Clear to auscultation. Breath sounds equal bilaterally. GASTROINTESTINAL: Abdomen soft, non-tender, nondistended. +BS. MUSCULOSKELETAL: Extremities without clubbing, cyanosis, trace ankle edema. No obvious deformities. NEUROLOGICAL: Awake and alert. No obvious cranial nerve deficits. Motor grossly within normal limits. Able to move all extremities. Normal speech. PSYCHIATRIC: Sitting up with sitter, cooperative with exam. Insight and judgement poor. Results - Labs CBC & Chem 7: 03/16/18 08:28 03/16/18 08:28 Microbiology 03/15/18 11:30 Clean Catch Urine Urine Culture - Final Escherichia coli Pseudomonas aeruginosa Assessment and Plan - Assessment (1) Bipolar affective, manic, severe w/ psych Code(s): F31.2 - Bipolar disorder, current episode manic severe with psychotic features Status: Acute (2) Cannabis abuse Code(s): F12.10 - Cannabis abuse, uncomplicated Status: Acute - Plan 52-year-old white female admitted for acute hyponatremia and acute shelley with past medical history of DVT, and diabetes mellitus type 2. 03/15 STAT reconsult for dark black stools and emesis of green bile x 2 No infection CXR shows no acute cardiopulmonary process, images reviewed by me no leukocytosis, H/H appears stable. Electrolytes are normal. LFTs are normal. Lipase 138. Lactic acid 1.1. Troponin <0.02. CPK is mildly elevated at 258. stool occult neg x 2 -patient with dark stools on iron supplementation. H/H stable. -episode of emesis after eating her own feces. Labs unremarkable as above. Resume diet. Encourage po fluid intake. Discourage patient from eating feces. -stable, tolerating diet well. No nausea today 03/16 recurrent N/V, labs repeated, normal lipase, ? meds, UTI. -continue Zofran PRN -held Metformin, iron and miralax -encourage fluid intake -Gallbladder US done, Normal gallbladder visualization no evidence of biliary obstruction/Normal calculated ejection fraction of approximately 70%. HIDA scan done, normal GB function -N/V resolved, tolerating diet well and maintaining adequate intake including Glucerna shakes. Appreciate dietary input. UTI Urinalysis with small blood, large leukocytes, 24 white blood cells, moderate bacteria, cx indicated -started on po Cipro x 3 days, sens noted. Resistant. -UC + ecoli (>100,000) + pseu Aeur. (15,000 -changed to Ceftin 250 mg PO BID x 5 days. Acute shelley/acute psychosis Altered mental status Likely related to psychosis and noncompliance in taking medications -with worsening symptoms, likely related to patient noncompliance and refusing to take p.o. medications extensive psych hx of schizophrenia and bipolar and long antipsychotic allergy list -lithium level 0.5 03/14 -Management with psychiatric team -Workup negative and ruled out metabolic causes -Monitor mental status Right lower extremity DVT Dependant bilateral lower extremity swelling, improved -LE US with noted nonocclusive thrombus within right proximal and distal femoral vein and profundus vein. -Currently on therapeutic dose of Lovenox until possible alternative psychotropics are established. -Encourage elevation and ambulation -Patient now complaint with po medications. No longer on Tegretol. Re- evaluated by Hematology who recommended transitioning from Lovenox injections to Xarelto 20mg daily. Diabetes Mellitus Type2, controlled -Blood sugar controlled -continue on Metformin 500mg BID - on hold now 2/2 N/V. -HgbA1c 5.7 -Follow up with PCP in 3 months Monitor blood sugars, Accu-Check BID Hypotonic hyponatremia Improved, stable. -Random urine sodium wnl, urine osmolality low. F/u lithium level. Possible medication induced SIADH vs GI losses -continue Sodium tabs daily. Monitor sodium. Na 140 12/10. Iron deficiency anemia/Normocytic Anemia -Hematology has started patient on iron supplementation. -Stool for occult blood negative x 2 -Continue iron supplements, monitor CBC -patient with poor PO intake, encourage p.o. diet -Continue ensure on Diet History of/hyperlipidemia/hypothyroidism - continue home medications, atorvastatin, Synthroid - TSH 0.773 - Lipid panel stable DVT prop Xarelto Will sign off for now, reconsult if needed. Code Status: Full code Discussed Condition With: RN, pt. Discharge Planning: Per psych team
[2018-03-18] MEDS: ChlorproMAZINE 25 MG Tablet PO SCH ×2 (13:11→17:21)
[2018-03-18] MEDS: traZODone 100 MG Tablet PO SCH (21:02)
[2018-03-19] MEDS: Acetaminophen 325 MG Tablet PO PRN (04:37)
[2018-03-19] MEDS: Levothyroxine 75 MCG Tablet PO SCH (05:33)
[2018-03-19] MEDS: Rivaroxaban 20 MG Tablet PO SCH (08:00)
[2018-03-19] MEDS: Senna/Docusate Sodium 8.6/50 MG Tablet PO SCH (08:00)
[2018-03-19] MEDS: ChlorproMAZINE 50 MG Tablet PO SCH ×2 (08:00→20:35)
[2018-03-19] MEDS: LITHIUM CITRATE 300 MG/5 ML PO SCH ×3 (08:00→18:54)
[2018-03-19] MEDS: Pantoprazole Sodium 20 MG DR Tablet PO SCH ×2 (08:00→20:35)
[2018-03-19] MEDS: Sodium Chloride 1 GM Tablet PO SCH (08:00)
--- NOTE | 2018-03-19 12:15 | P.PNPSY ---
Subjective Chief Complaint: Bipolar I Disorder - current Manic Episode Remarks: Patient seen for follow-up, chart reviewed. Discussion with nursing staff reported that patient patient slept a few hours last evening, continues to be disruptive and intrusive but redirectable with staff on one-to-one for behavioral management which patient appears to be responding to well to. Patient presented to mental health court today which patient was noted to be irritable, with occasional verbal outburst but able to maintain behavior during the preceding which patient was granted ECT treatment through the court. Patient was later seen on the unit eating lunch with sitter at bedside noted able to tolerate interview well not noted to be intrusive agitated or 51 irritable but is noted to continue with sexual preoccupation. We will continue to monitor patient and continue to titrate medication regimen as well as search for ECT facilities the patient may be transferred to for this treatment. Review of Systems All other systems reviewed negative except as stated in HPI Mental Status Examination Appearance: Appropriate Consciousness: Alert, Highly distractible (Lessening) Orientation: Person, Place (at least) Motor Activity: Other (No tremor, no dystonia, no dyskinesia, no other motor abnormalities noted.) Speech: Rapid Language: Other (Rambling) Fund of Knowledge: Poor Attention and Concentration: Inadequate Memory: Unremarkable Mood: Anxious Affect: Labile Thought Process & Associations: Loose associations, Tangential Thought Content: Bizarre thinking, Delusional Hallucination Type: None Delusion Type: Bizarre Suicidal Ideation: No Suicidal Plan: No Suicidal Intention: No Homicidal Ideation: No Homicidal Plan: No Homicidal Intention: No Insight: Poor Judgment: Poor Assessment and Plan - Assessment (1) Bipolar affective, manic, severe w/ psych Code(s): F31.2 - Bipolar disorder, current episode manic severe with psychotic features Status: Acute (2) Cannabis abuse Code(s): F12.10 - Cannabis abuse, uncomplicated Status: Acute - Plan Plan: Patient continues with manic symptoms, continues with disorganization at times, intrusiveness, second preoccupation requiring constant redirection with sitter at bedside but no episodes of agitation, no ETO's. We will continue current treatment. Stites level pending for tomorrow morning. Continue to monitor with behavior. Continue one-to-one observation for safety. Discharge planning in progress. Justification for Continued Inpatient Stay: At risk of further decompensation at lower level care. Request Healthcare Surrogate/Guardian Advocate?: Yes
[2018-03-19] MEDS: ChlorproMAZINE 25 MG Tablet PO SCH ×2 (13:38→18:54)
[2018-03-19] MEDS: traZODone 100 MG Tablet PO SCH (20:35)
[2018-03-20] MEDS: Acetaminophen 325 MG Tablet PO PRN ×2 (02:35→10:15)
[2018-03-20] MEDS: Levothyroxine 75 MCG Tablet PO SCH (06:02)
[2018-03-20 07:04] LABS: Calcium 9.6 mg/dL (8.5-10.1); Carbon Dioxide 29.6 meq/L (21.0-32.0); Potassium 4.5 meq/L (3.5-5.1)
[2018-03-20] MEDS: Sodium Chloride 1 GM Tablet PO SCH (07:45)
[2018-03-20] MEDS: Senna/Docusate Sodium 8.6/50 MG Tablet PO SCH (07:45)
[2018-03-20] MEDS: Rivaroxaban 20 MG Tablet PO SCH (07:45)
[2018-03-20] MEDS: ChlorproMAZINE 50 MG Tablet PO SCH ×2 (07:45→21:11)
[2018-03-20] MEDS: Pantoprazole Sodium 20 MG DR Tablet PO SCH ×2 (07:45→21:11)
[2018-03-20] MEDS: LITHIUM CITRATE 300 MG/5 ML PO SCH ×3 (08:08→17:47)
--- NOTE | 2018-03-20 11:20 | P.PNPSY ---
Subjective Chief Complaint: Bipolar I Disorder - current Manic Episode Remarks: Patient seen and short-haul with nurse Talia and kofi, chart reviewed, patient compliant medication. Patient has had 2-3 episodes of emesis since breakfast this morning even after having on oral Zofran. She is up been somewhat calm in the past half hour to 45 minutes. Patient is still intense intrusive hypersexual and inappropriate with her comments. She denies voices appears to be responding to internal stimuli. Labs have been drawn this morning chemistry showing just slight variations. Though there is no CBC with differential drawn we will do that staff at this time. We will also reconsult hospitalist to address these issues Review of Systems All other systems reviewed negative except as stated in HPI Mental Status Examination Appearance: Appropriate Consciousness: Alert, Highly distractible (Lessening) Orientation: Person, Place (at least) Motor Activity: Other (No tremor, no dystonia, no dyskinesia, no other motor abnormalities noted.) Speech: Rapid Language: Other (Rambling) Fund of Knowledge: Poor Attention and Concentration: Inadequate Memory: Unremarkable Mood: Anxious Affect: Other (Increased range and intensity) Thought Process & Associations: Loose associations, Tangential Thought Content: Bizarre thinking, Delusional Hallucination Type: None (Though at times it appears patient is responding to internal stimuli) Delusion Type: Bizarre Suicidal Ideation: No Suicidal Plan: No Suicidal Intention: No Homicidal Ideation: No Homicidal Plan: No Homicidal Intention: No Insight: Poor Judgment: Poor Assessment and Plan - Assessment (1) Bipolar affective, manic, severe w/ psych Code(s): F31.2 - Bipolar disorder, current episode manic severe with psychotic features Status: Acute (2) Cannabis abuse Code(s): F12.10 - Cannabis abuse, uncomplicated Status: Acute - Plan Plan: Patient showing some increased nausea and emesis we will have hospitalist reconsult with us we will repeat CBC immediately, if remains manic intrusive somewhat delusional grandiose and hypersexual Justification for Continued Inpatient Stay: At this time patient with decompensated placed in a lower level of care Discharge Planning: Continue to await word on possible ECT treatment Request Healthcare Surrogate/Guardian Advocate?: Yes
[2018-03-20 12:05] LABS: Baso % (Auto) 0.4 % (0.0-2.0); Eos # (Auto) 1.1 th/mm3 (0.0-0.4); Eos % (Auto) 11.7 % (0.0-4.0); Hemoglobin 11.1 gm/dL (11.6-15.3); Lymph # (Auto) 1.1 th/mm3 (1.0-4.8); Lymph % (Auto) 12.3 % (9.0-44.0); Mean Corpuscular HGB Conc 33.7 % (32.0-36.0); Mean Corpuscular Volume 89.2 fL (80.0-100.0); Mean Platelet Volume 8.6 fL (7.0-11.0); Mono # (Auto) 0.5 th/mm3 (0.0-0.9); Mono % (Auto) 5.3 % (0.0-8.0); Neut # (Auto) 6.4 th/mm3 (1.8-7.7); Neut % (Auto) 70.3 % (16.0-70.0); Platelet Count 294 th/mm3 (150-450); Red Cell Distribution Width 15.2 % (11.6-17.2); White Blood Count 9.1 th/mm3 (4.0-11.0)
[2018-03-20] MEDS: ChlorproMAZINE 25 MG Tablet PO SCH ×3 (12:41→17:47)
[2018-03-20] MEDS ORDERED: Chlorpromazine Inj 50 MG/2 ML Ampule IM ONE (13:30)
--- NOTE | 2018-03-20 16:55 | P.PN ---
Subjective Interval history: Reconsult for recurrent N/V x 2-3 today. Per nursing report, pt. was laying down when she suddenly vomited. She did it again after taking meds. Was given Zofran and vomited once more. She was able to eat lunch. Labs are done, no significant changes except for mildly elevated BUN. Glucose was 110. No reported fever. Pt. is now examined with RN, when asked about N/V, states "I'm ". Was noted with abdominal distension, none is noted at this time. Pt. denies eating excrement. She has a sitter most times. As for her psychiatric disorder, she remains same, hypersexual with inappropriate comments. Physical Exam Vital signs: Vital Signs 03/20/18 06:00 03/20/18 09:45 Temperature 97.5 F L Pulse Rate 93 H 82 Respiratory Rate 16 16 Blood Pressure 104/58 L 135/61 Pulse Oximetry 96 99 Intake & Output 03/19/18 03/20/18 03/20/18 18:59 06:59 18:59 Other: Date of Last Bowel Movement 03/16/18 Narrative: GENERAL: Well-developed, well-nourished female in no acute distress. Disheveled. Awake and alert. Inappropriate behavior noted. SKIN: Warm and dry. HEENT: Atraumatic. Normocephalic. Pupils equal and round. No scleral icterus. No injection or drainage. No nasal bleeding or discharge. NECK: Trachea midline. CARDIOVASCULAR: Regular rate and rhythm. No murmur appreciated. RESPIRATORY: No accessory muscle use. Clear to auscultation. Breath sounds equal bilaterally. GASTROINTESTINAL: Abdomen soft, non-tender, nondistended. +BS. MUSCULOSKELETAL: Extremities without clubbing, cyanosis, trace ankle edema. No obvious deformities. NEUROLOGICAL: Awakes to voice, alert. No obvious cranial nerve deficits. Motor grossly within normal limits. Able to move all extremities. Normal speech. PSYCHIATRIC: Insight and judgement poor. Results - Labs CBC & Chem 7: 03/20/18 11:34 03/20/18 06:11 Laboratory Results - last 24 hr 03/20/18 03/20/18 03/20/18 06:11 06:11 11:34 WBC 9.1 RBC 3.70 L Hgb 11.1 L Hct 33.0 L MCV 89.2 MCH 30.0 MCHC 33.7 RDW 15.2 Plt Count 294 D MPV 8.6 Neut % (Auto) 70.3 H Lymph % (Auto) 12.3 [place] % (Auto) 5.3 Eos % (Auto) 11.7 H Baso % (Auto) 0.4 Neut # (Auto) 6.4 Lymph # (Auto) 1.1 [place] # (Auto) 0.5 Eos # (Auto) 1.1 H Baso # (Auto) 0.0 WBC Differential . Differential Comment Auto diff final Sodium 140 Potassium 4.5 Chloride 107 Carbon Dioxide 29.6 Anion Gap 3 L BUN 19 H Creatinine 0.83 Estimated GFR 72 L Random Glucose 110 H Calcium 9.6 [place] 0.6 Assessment and Plan - Assessment (1) Bipolar affective, manic, severe w/ psych Code(s): F31.2 - Bipolar disorder, current episode manic severe with psychotic features Status: Acute (2) Cannabis abuse Code(s): F12.10 - Cannabis abuse, uncomplicated Status: Acute - Plan 52-year-old white female admitted for acute hyponatremia and acute shelley with past medical history of DVT, and diabetes mellitus type 2. 03/15 STAT reconsult for dark black stools and emesis of green bile x 2 No infection CXR shows no acute cardiopulmonary process, images reviewed by me no leukocytosis, H/H appears stable. Electrolytes are normal. LFTs are normal. Lipase 138. Lactic acid 1.1. Troponin <0.02. CPK is mildly elevated at 258. stool occult neg x 2 -patient with dark stools on iron supplementation. H/H stable. -episode of emesis after eating her own feces. Labs unremarkable as above. Diet was resumed. Discouraged patient from eating feces. Reconsult 03/20 for N/V x 3. No hematemesis observed, denies any abdominal pain. Pt. denies eating excrement. Etiology unclear, ? meds. Although she has been on same medications including antibiotics. -continue Zofran PRN -continue to hold Metformin, iron and miralax -encourage fluid intake -Stop sodium tabs. -Gallbladder US done, one gallstone 1.9 cm, no CBD dilatation. HIDA scan done: Normal gallbladder visualization no evidence of biliary obstruction/Normal calculated ejection fraction of approximately 70%. -inc PO fluids, continue Zofran PRN. If pt continues to have N/V, she will need transfer to [facility] for IVF. If persistence of symptoms, may need GI evaluation. UTI Urinalysis with small blood, large leukocytes, 24 white blood cells, moderate bacteria, cx indicated -started on po Cipro x 3 days, sens noted. Resistant. -UC + ecoli (>100,000) + pseu Aeur. (15,000 -changed to Ceftin 250 mg PO BID x 5 days. Acute shelley/acute psychosis Altered mental status Likely related to psychosis and noncompliance in taking medications -with worsening symptoms, likely related to patient noncompliance and refusing to take p.o. medications extensive psych hx of schizophrenia and bipolar and long antipsychotic allergy list -lithium level 0.5 03/14 -Management with psychiatric team -Workup negative and ruled out metabolic causes -Monitor mental status Right lower extremity DVT Dependant bilateral lower extremity swelling, improved -LE US with noted nonocclusive thrombus within right proximal and distal femoral vein and profundus vein. -Currently on therapeutic dose of Lovenox until possible alternative psychotropics are established. -Encourage elevation and ambulation -Patient now complaint with po medications. No longer on Tegretol. Re- evaluated by Hematology who recommended transitioning from Lovenox injections to Xarelto 20mg daily. Diabetes Mellitus Type2, controlled -Blood sugar controlled -continue on Metformin 500mg BID - on hold now 2/2 N/V. -HgbA1c 5.7 -Follow up with PCP in 3 months Monitor blood sugars, Accu-Check BID Hypotonic hyponatremia Improved, stable. -Random urine sodium wnl, urine osmolality low. F/u lithium level. Possible medication induced SIADH vs GI losses -continue Sodium tabs daily. Monitor sodium. Na 140 03/16. Iron deficiency anemia/Normocytic Anemia -Hematology has started patient on iron supplementation. -Stool for occult blood negative x 2 -Continue iron supplements, monitor CBC -patient with poor PO intake, encourage p.o. diet -Continue ensure on Diet History of/hyperlipidemia/hypothyroidism - continue home medications, atorvastatin, Synthroid - TSH 0.773 - Lipid panel stable DVT prop Xarelto Labs reviewed, no significant changes. Code Status: Full code Discussed Condition With: RN, pt Discharge Planning: Per psych team
[2018-03-20] MEDS: traZODone 100 MG Tablet PO SCH (21:11)
[2018-03-21] MEDS: Levothyroxine 75 MCG Tablet PO SCH (06:23)
[2018-03-21] MEDS: LITHIUM CITRATE 300 MG/5 ML PO SCH ×3 (08:37→17:42)
[2018-03-21] MEDS: Senna/Docusate Sodium 8.6/50 MG Tablet PO SCH (08:37)
[2018-03-21] MEDS: ChlorproMAZINE 50 MG Tablet PO SCH ×2 (08:37→20:27)
[2018-03-21] MEDS: Rivaroxaban 20 MG Tablet PO SCH (08:37)
[2018-03-21] MEDS: Pantoprazole Sodium 20 MG DR Tablet PO SCH ×2 (10:07→20:27)
[2018-03-21] MEDS: ChlorproMAZINE 25 MG Tablet PO SCH ×2 (13:10→17:42)
--- NOTE | 2018-03-21 14:30 | P.PNPSY ---
Subjective Chief Complaint: Bipolar I Disorder - current Manic Episode Remarks: Reviewed electronic medical records and discussed case with staff. Follow-up was conducted in the hallway with Talia IBARRA present she reports the patient remains very confused is oriented to self only. She caught him attempting to take his medications. He did take a shower today but still is malodorous. Patient states that he is "not good". When asked why he is not good he reports , "thoughts". He states that he has thoughts of the double and endorses a double talking to him. He reports that he has difficulty sleeping because of these thoughts but that his appetite has been just fine. Mental Status Examination Appearance: Appropriate Consciousness: Alert, Highly distractible (Lessening) Orientation: Person, Place (at least) Motor Activity: Other (No tremor, no dystonia, no dyskinesia, no other motor abnormalities noted.) Speech: Rapid Language: Other (Rambling) Fund of Knowledge: Poor Attention and Concentration: Inadequate Memory: Unremarkable Mood: Anxious Affect: Other (Increased range and intensity) Thought Process & Associations: Loose associations, Tangential Thought Content: Bizarre thinking, Delusional Hallucination Type: None (Though at times it appears patient is responding to internal stimuli) Delusion Type: Bizarre Suicidal Ideation: No Suicidal Plan: No Suicidal Intention: No Homicidal Ideation: No Homicidal Plan: No Homicidal Intention: No Insight: Poor Judgment: Poor Assessment and Plan - Assessment (1) Bipolar affective, manic, severe w/ psych Code(s): F31.2 - Bipolar disorder, current episode manic severe with psychotic features Status: Acute - Plan Plan: Patient will be reevaluated by the attending psychiatrist. Continue with current treatment plan. Justification for Continued Inpatient Stay: Moving this patient to a less restrictive environment would likely result in decompensation. Request Healthcare Surrogate/Guardian Advocate?: Yes
--- NOTE | 2018-03-21 15:24 | P.PNPSY ---
Subjective Chief Complaint: Bipolar I Disorder - current Manic Episode Remarks: Reviewed electronic medical records and discussed case with staff. Follow-up was conducted in this short-haul with FRED Melgar present. The nurse reports that the patient has been compliant with her medications and had no behavioral disturbances thus far today. She is on the state list awaiting placement. Patient states that she feels "zaira". And reports her mood as great. She states that she is been sleeping and eating well. Remains hypersexual as the tech, Bijan, reported the patient continuously tried to grab his crotch while he was sitting one-to-one with her. Mental Status Examination Appearance: Appropriate Consciousness: Alert, Highly distractible (Lessening) Orientation: Person, Place (at least) Motor Activity: Other (No tremor, no dystonia, no dyskinesia, no other motor abnormalities noted.) Speech: Rapid Language: Other (Rambling) Fund of Knowledge: Poor Attention and Concentration: Inadequate Memory: Unremarkable Mood: Anxious Affect: Other (Increased range and intensity) Thought Process & Associations: Loose associations, Tangential Thought Content: Bizarre thinking, Delusional Hallucination Type: None (Though at times it appears patient is responding to internal stimuli) Delusion Type: Bizarre Suicidal Ideation: No Suicidal Plan: No Suicidal Intention: No Homicidal Ideation: No Homicidal Plan: No Homicidal Intention: No Insight: Poor Judgment: Poor Assessment and Plan - Assessment (1) Bipolar affective, manic, severe w/ psych Code(s): F31.2 - Bipolar disorder, current episode manic severe with psychotic features Status: Acute - Plan Plan: Patient will be reevaluated by the attending psychiatrist. Continue with current treatment plan. Justification for Continued Inpatient Stay: Moving this patient to a less restrictive environment would likely result in decompensation. Request Healthcare Surrogate/Guardian Advocate?: Yes
--- NOTE | 2018-03-21 17:07 | P.PN ---
Subjective Interval history: Follow up for recurrent N/V. Pt. seen and examined, sitter at [facility]. Pt. has been eating well, no more N/V. Denies abd. pain. Per nursing, she spaced her medications today and this seemed to help her symptoms. No acute changes overnight. Physical Exam Vital signs: Vital Signs 03/20/18 18:28 03/21/18 06:00 Temperature 98.1 F 97.3 F L Pulse Rate 72 89 Respiratory Rate 18 16 Blood Pressure 104/64 130/58 L Pulse Oximetry 95 98 Intake & Output 03/20/18 03/21/18 03/21/18 18:59 06:59 18:59 Other: Date of Last Bowel Movement 03/16/18 Narrative: GENERAL: Well-developed, well-nourished female in no acute distress. Disheveled. Awake and alert. Inappropriate behavior noted. SKIN: Warm and dry. HEENT: Atraumatic. Normocephalic. Pupils equal and round. No scleral icterus. No injection or drainage. No nasal bleeding or discharge. NECK: Trachea midline. CARDIOVASCULAR: Regular rate and rhythm. No murmur appreciated. RESPIRATORY: No accessory muscle use. Clear to auscultation. Breath sounds equal bilaterally. GASTROINTESTINAL: Abdomen soft, non-tender, nondistended. +BS. MUSCULOSKELETAL: Extremities without clubbing, cyanosis, trace ankle edema. No obvious deformities. NEUROLOGICAL: Awakes to voice, alert. No obvious cranial nerve deficits. Motor grossly within normal limits. Able to move all extremities. Normal speech. PSYCHIATRIC: Insight and judgement poor. Results - Labs CBC & Chem 7: 03/20/18 11:34 03/20/18 06:11 Assessment and Plan - Assessment (1) Bipolar affective, manic, severe w/ psych Code(s): F31.2 - Bipolar disorder, current episode manic severe with psychotic features Status: Acute (2) Cannabis abuse Code(s): F12.10 - Cannabis abuse, uncomplicated Status: Acute - Plan 52-year-old white female admitted for acute hyponatremia and acute shelley with past medical history of DVT, and diabetes mellitus type 2. 03/15 STAT reconsult for dark black stools and emesis of green bile x 2 No infection CXR shows no acute cardiopulmonary process, images reviewed by me no leukocytosis, H/H appears stable. Electrolytes are normal. LFTs are normal. Lipase 138. Lactic acid 1.1. Troponin <0.02. CPK is mildly elevated at 258. stool occult neg x 2 -patient with dark stools on iron supplementation. H/H stable. -episode of emesis after eating her own feces. Labs unremarkable as above. Diet was resumed. Was discouraged patient from eating feces. Reconsult 03/20 for N/V x 3. No hematemesis observed, denies any abdominal pain. Pt. denies eating excrement. Etiology unclear, ? meds. Although she has been on same medications including antibiotics. -continue Zofran PRN -continue to hold Metformin, iron and miralax -encourage fluid intake -Stop sodium tabs. -Gallbladder US done, one gallstone 1.9 cm, no CBD dilatation. HIDA scan done: Normal gallbladder visualization no evidence of biliary obstruction/Normal calculated ejection fraction of approximately 70%. -No more n/v. Recommend to continue spacing medications. Continue Zofran PRN UTI Urinalysis with small blood, large leukocytes, 24 white blood cells, moderate bacteria, cx indicated -started on po Cipro x 3 days, sens noted. Resistant. Discontinued -UC + ecoli (>100,000) + pseu Aeur. (15,000) -changed to Ceftin 250 mg PO BID x 5 days (to complete tomorrow) Acute shelley/acute psychosis Altered mental status Likely related to psychosis and noncompliance in taking medications -with worsening symptoms, likely related to patient noncompliance and refusing to take p.o. medications extensive psych hx of schizophrenia and bipolar and long antipsychotic allergy list -lithium level 0.5 03/14 -Management with psychiatric team -Workup negative and ruled out metabolic causes -Monitor mental status Right lower extremity DVT Dependant bilateral lower extremity swelling, improved -LE US with noted nonocclusive thrombus within right proximal and distal femoral vein and profundus vein. -Currently on therapeutic dose of Lovenox until possible alternative psychotropics are established. -Encourage elevation and ambulation -Patient now complaint with po medications. No longer on Tegretol. Re- evaluated by Hematology who recommended transitioning from Lovenox injections to Xarelto 20mg daily. Diabetes Mellitus Type2, controlled -Blood sugar controlled -continue on Metformin 500mg BID - on hold now 2/2 N/V. -HgbA1c 5.7 -Follow up with PCP in 3 months Monitor blood sugars, Accu-Check BID Hypotonic hyponatremia-resolved. Improved, stable. -Random urine sodium wnl, urine osmolality low. F/u lithium level. Possible medication induced SIADH vs GI losses -Sodium tabs d/c'd Iron deficiency anemia/Normocytic Anemia -Hematology has started patient on iron supplementation. -Stool for occult blood negative x 2 -Continue iron supplements, monitor CBC -patient with poor PO intake, encourage p.o. diet -Continue ensure on Diet History of/hyperlipidemia/hypothyroidism - continue home medications, atorvastatin, Synthroid - TSH 0.773 - Lipid panel stable DVT prop Xarelto Will sign off for now, reconsult if needed. Code Status: Full code Discussed Condition With: RN, pt Discharge Planning: Per psych team
[2018-03-21] MEDS: traZODone 100 MG Tablet PO SCH (20:27)
[2018-03-22] MEDS: Levothyroxine 75 MCG Tablet PO SCH (05:28)
[2018-03-22] MEDS: Rivaroxaban 20 MG Tablet PO SCH (08:48)
[2018-03-22] MEDS: ChlorproMAZINE 50 MG Tablet PO SCH ×2 (08:48→20:35)
[2018-03-22] MEDS: LITHIUM CITRATE 300 MG/5 ML PO SCH (08:48)
[2018-03-22] MEDS: Pantoprazole Sodium 20 MG DR Tablet PO SCH ×2 (08:49→20:35)
[2018-03-22] MEDS: Acetaminophen 325 MG Tablet PO PRN (08:49)
[2018-03-22] MEDS: Senna/Docusate Sodium 8.6/50 MG Tablet PO SCH (08:49)
--- NOTE | 2018-03-22 10:16 | P.PNPSY ---
Subjective Chief Complaint: Bipolar I Disorder - current Manic Episode Remarks: Patient seen and examined with nurse, Agnieszka, in weekend coverage for Dr. Guardado. Chart reviewed. Case discussed with nursing staff who reports patient had one episode of emesis this morning. Nurse conjectures that this may be related to taking lithium citrate and requests that we change the patient to lithium tablets now that she is more adherent with medication regimen. Nursing has noted interval improvement with titration of lithium. On my examination today, patient remains with one-to-one sitter for behavioral redirection. She is intrusive and tries to get in bed with a female peer. Affect is silly. 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 She denies side effects from medications. No evidence of encephalopathy from combined lithium and Thorazine therapy. No acute physical complaints. No ongoing nausea reported. Vital Signs Temp Pulse Resp BP Pulse Ox 03/22/18 06:00 98.2 F 95 H 17 117/70 97 Intake and Output 03/21/18 03/22/18 03/22/18 22:59 06:59 14:59 Other: Date of Last Bowel Movement 03/16/18 Laboratory Results - last 48 hr 03/20/18 11:34 WBC 9.1 RBC 3.70 L Hgb 11.1 L Hct 33.0 L MCV 89.2 MCH 30.0 MCHC 33.7 RDW 15.2 Plt Count 294 D MPV 8.6 Neut % (Auto) 70.3 H Lymph % (Auto) 12.3 Amite % (Auto) 5.3 Eos % (Auto) 11.7 H Baso % (Auto) 0.4 Neut # (Auto) 6.4 Lymph # (Auto) 1.1 Amite # (Auto) 0.5 Eos # (Auto) 1.1 H Baso # (Auto) 0.0 WBC Differential . Differential Comment Auto diff final Labs reviewed. Trimble level 0.6, still subtherapeutic for acute treatment. Review of Systems All other systems reviewed negative except as stated in HPI (Limitation: Psychosis) Mental Status Examination Appearance: Appropriate Consciousness: Alert, Highly distractible (Lessening) Orientation: Person, Place (at least) Motor Activity: Other (No abnormal motor movements noted) Speech: Rapid Language: Other (Remains rambling) Fund of Knowledge: Poor Attention and Concentration: Inadequate Memory: Unremarkable Mood: Anxious, Other (Elevated) Affect: Labile, Other (Expansive) Thought Process & Associations: Loose associations, Tangential Thought Content: Bizarre thinking, Delusional Hallucination Type: None Delusion Type: Bizarre, Other (Grandiose) Suicidal Ideation: No Homicidal Ideation: No Insight: Poor Judgment: Poor Assessment and Plan - Assessment (1) Bipolar affective, manic, severe w/ psych Code(s): F31.2 - Bipolar disorder, current episode manic severe with psychotic features Status: Acute (2) Cannabis abuse Code(s): F12.10 - Cannabis abuse, uncomplicated Status: Acute - Plan Plan: Replace lithium citrate with lithium carbonate and titrated dose to 300 mg 4 times daily. Plan to obtain lithium level and BMP middle of this week. Hospitalist input noted and appreciated. Continue one-to-one for behavioral redirection. Continue other medications and care as ordered. Justification for Continued Inpatient Stay: Medication changes. Impairment in reality construction. High risk for decompensation in less restrictive environment. Discharge Planning: Per Dr. Guardado. Request Healthcare Surrogate/Guardian Advocate?: Yes
[2018-03-22] MEDS: ChlorproMAZINE 25 MG Tablet PO SCH ×2 (12:08→17:45)
[2018-03-22] MEDS: traZODone 100 MG Tablet PO SCH (20:36)
[2018-03-23] MEDS: Levothyroxine 75 MCG Tablet PO SCH (05:22)
[2018-03-23] MEDS: Rivaroxaban 20 MG Tablet PO SCH (08:40)
[2018-03-23] MEDS: Pantoprazole Sodium 20 MG DR Tablet PO SCH ×2 (08:40→20:24)
[2018-03-23] MEDS: Senna/Docusate Sodium 8.6/50 MG Tablet PO SCH (08:41)
[2018-03-23] MEDS: ChlorproMAZINE 50 MG Tablet PO SCH ×2 (08:41→20:23)
--- NOTE | 2018-03-23 10:25 | P.TTN ---
- Patient Problems Problems: 1. Discharge planning 2. Medication compliance 3. Knowledge deficit 4. Lack of coping skills - Progress Toward Goals Provider Present: Dr. Marika Guardado (Patient has not stable needs to remain for further stabilization.), Dr. Amparo Dodson (February 02, 2018 patient's shelley is softening, Dr. Dodson intends to remove the one-on-one, titrating medications, patient remains for further stabilization. February 04, 2018 patient remains manic, irritable, and needs to remain for further stabilization.) Provider Input: 03/16/2018; per psychiatrist, patient medication contiues to require adjustment, due to inappropriate sexual behavior. 03/09/2018 Patient still meets criteria to remain on the unit. Yesterday she wanted to bolt through the locked doors to go after a male. She is very sexually inappropriate. 03/04/18; patient is not stable at this point, medication is still be adjust. 03/02/2018; patient is refusing medication and will be given IM; patient is delusional and responding to internal stimuli. 02/23: Pt, over this weekend, has refused all medications. Pt is currently 1:1 per her instability. Pt currently has DVT. Options include pt to accept medication for recommended tx, ECT via court order, [facility]. Isaac, counselor, to follow up with [facility] application and with pt to return to court [place] for court to rule on ECT as option. 02/18/18: Pt is being titrated on Lorazepam and Tegretal with subcutaneous Lovenox an impediment to pt being placed in [facility]. Pt does not currently meet SNF placement, OTR consults with Therapy Dept to confirm pt not meeting SNF status. MD to consult with hemotologist re: options for Lovenox (ie: P.O. medication) to increase dc options. 02/16/18: pt continuing medication; patient is continuing to slowly stabalize, continue medication mangement. case management rn is continuing to work on locating safe placement for [facility] - at this time reviewing [facility]. 02/11/18: pt currently on tegretal 350 BID; pt is slowly stabilizing, further medication adjustments limited relative to pt's elevated sodium issues. Pt's sister has indicated she would like pt to remain at [facility] until pt is stabilized so pt can return to [facility]. Pt continues to meet in-pt criteria. 02/09/18: Pt continues to be manic, hyperverbal, intrusive and needs to remain for further stabilization. Tegrertal being titrated. Collateral from pt's sister is that pt continues to exhibit shelley. 01/28: Adjusting and increasing pt's medications today, pt is homeless, case management is working on placement to [facility], watch water intake due to decrease in sodium Nurse(s) Present: RN Nurse Input: 03/16/2018;per RN patient requires ongoing redirection, very inappropriate behavior, playing with her feces, very sexual, unable to follow verable ques. 03/09/2018 Patient still requires 1:1 touch. Intrusive and attempts to touch others. 03/04/2018; patient is responding to internal stimuli , requires 1:1, still refuse medication, and very nonsensical with thoughts. ; patient is responding to internal stimuli, she is difficult to redirect, with nonsensical thoughts. 02/16/18: pt continuing hyperverbal, pt continuing to socialize, rapid pressure speech and is continuing to be medication compliant. 01/28: Pt remains manic, hyperverbal, religiously preoccupied, rapid pressured speech, med compliant Psychiatric Counselors Present: Isaac Lentz Jr., [facility] (Patient was denied ECT treatment by Doretha at [facility]. Counselor will follow up with ECT referral to [facility] faxed on Friday of last week. Patient is also on this wait list for state hospitalization, as a backup plan to the ECT treatment.), Steffanie Liz, [facility], Other Psychiatric Therapist Input: 03/16/2018; counselor will continue to move towards ECT plan with treating psychiatrist, state package has been submitted. 03/09/2018 Still looking for ECT placement and State should have already been implemented. 03/04/2018; dc placement remain the same, dc to [facility] when stable if appropriate if not to a different [facility]. 03/02/2018; patient placement is still in review, to determine if returning to [facility] is appropriate verse a higher level of care. 02/16/18: pt is improving slowly, case management rn is to work on finding different placement, at this time reviewing [facility], as of Friday02/13/18 pt was still improving per provider. 02/09/18: Pt plof was [facility], current plan is for pt to return when stabilized. Pt currrently meets criteria for in-pt status. Group Spec/RT/OT/BARRERA Present: Litzy Santacruz, GPS, HOLLY Ratliff ( Patient attends select groups.), Rasta Archibald, OT, Stanislaw Lin, HOLLY ( February 02, 2018 patient attends select groups and is redirectable), Other Group Spec/RT/OT/BARRERA Input: 03/16/2018; per OT patient is too inappropriate for most group, and unable to participate. 03/09/2018 Unable to participate in any group activities. 03/04/2018 patient is unable to participate with groups. 03/02/2018; patient is unable to participate with groups or activities at this time. 02/23: Pt continues to participate in most groups, she is able to be appropriate but continues to act intrusively, requiring frequent redirection. 02/18/18: Pt ontinues to participate in groups, patient continues looking forward to socialization and participation but she continues to moderately intrusive and hyperverbal. 02/16/18: pt continues to participate in groups, patient continues looking forward to socialization and participation. 02/11/18: Pt attends most groups lately but she continues to moderately intrusive and hyperverbal, she is consistently in other people's business. Pt is redirectable with moderate effort, she is able to exercise more self-control though still needs external cuing to do so. 02/09/18: Pt attends select groups, she is intrusive, hyperverbal, needs repeated, nearly constant re-direction. : Pt attends select groups with 1:1 and constant redirection to remain quiet , focused, seated. Manic, intrusive, hyperverbal, increase in participation noted, pt is able to complete simple tasks Clinical Coordinator: Tasha Mathews [facility] Additional Input: 02/23: Isaac, counselor, to follow up with [facility] application and with pt to return to court [place] for court to rule on ECT as option. 02/11/18: Pt's sister has indicated she would like pt to remain at [facility] until pt is stabilized so pt can return to [facility]. Pt continues to meet in-pt criteria. 02/09/18: Pt plof was [facility], current plan is for pt to return when stabilized. Pt currrently meets criteria for in-pt status. - Discharge Plan Other (Further evaluation for [facility] placement - at this time reviewing opportunity for [facility]) 02/18/18: Pt does not currently meet SNF placement, OTR consults with Therapy Dept to confirm pt not meeting SNF status. MD to consult with hemotologist re: options for Lovenox (ie: P.O. medication) to increase dc options. 02/11/18: Pt's sister has indicated she would like pt to remain at [facility] until pt is stabilized so pt can return to [facility]. Pt continues to meet in-pt criteria. 01/28: Pt discharge planning in progress with placement to [facility] - Documentation Teaching Recipient: Patient
[2018-03-23] MEDS: ChlorproMAZINE 25 MG Tablet PO SCH ×2 (12:54→17:50)
--- NOTE | 2018-03-23 14:19 | P.PNPSY ---
Subjective Chief Complaint: Bipolar I Disorder - current Manic Episode Remarks: Patient is seen in her room with sitter. Patient was standing in the corner eating peanut butter out of continue with her finger patient continues quite silly superficial and intense patient responded also somewhat sexual in the responses when I asked her if she was hearing voices she replied "you" and then I asked any other voices and she stated "me" there remains no insight into her disease other is a lithium level to be drawn on 03/25 to monitor most recent increase in lithium. Otherwise continue medication no change. It appears he denied having success at finding an ECT referral. We also continue to await for state hospital referral Review of Systems All other systems reviewed negative except as stated in HPI Mental Status Examination Appearance: Appropriate, Disheveled (Slightly) Consciousness: Alert, Highly distractible (Lessening) Orientation: Person, Place (at least) Motor Activity: Other (No abnormal motor movements noted) Speech: Rapid Language: Other (Remains rambling) Fund of Knowledge: Poor Attention and Concentration: Inadequate Memory: Unremarkable Mood: Anxious, Other (Elevated) Affect: Labile, Other (Expansive) Thought Process & Associations: Loose associations, Tangential Thought Content: Bizarre thinking, Delusional Hallucination Type: None Delusion Type: Bizarre, Other (Grandiose) Suicidal Ideation: No Suicidal Plan: No Suicidal Intention: No Homicidal Ideation: No Homicidal Plan: No Homicidal Intention: No Insight: Poor Judgment: Poor Assessment and Plan - Assessment (1) Bipolar affective, manic, severe w/ psych Code(s): F31.2 - Bipolar disorder, current episode manic severe with psychotic features Status: Acute (2) Cannabis abuse Code(s): F12.10 - Cannabis abuse, uncomplicated Status: Acute - Plan Plan: Patient remains somewhat psychotic vigilant paranoid and hypersexual. Showing poor response to medication. It appears we may be unable to find an ECT facility. Continue to await word on state hospital referral Justification for Continued Inpatient Stay: At this time patient with decompensated placed in a lower level of care Discharge Planning: Continue to await on word from state hospital referral and from various ECT facilities Request Healthcare Surrogate/Guardian Advocate?: Yes
[2018-03-23] MEDS: traZODone 100 MG Tablet PO SCH (20:25)
[2018-03-24] MEDS: Levothyroxine 75 MCG Tablet PO SCH (05:39)
[2018-03-24] MEDS: Acetaminophen 325 MG Tablet PO PRN (05:41)
--- NOTE | 2018-03-24 09:17 | P.PNPSY ---
Subjective Chief Complaint: Bipolar I Disorder - current Manic Episode Remarks: Patient is seen and gonzalez sitting in chair with floor staff, chart reviewed, patient compliant medication. However this morning patient showed multiple episodes of emesis though her vital signs are fairly good. She is somewhat pale with repeated episodes of nausea and vomiting. Though she is not complaining of any significant pain. Her affect is markedly decreased in his range and intensity. I have ordered stat labs including CBC with differential, CMP, lithium level, and UA all staff. I have also ordered hospitalist consult as soon as they can do this. Review of Systems All other systems reviewed negative except as stated in HPI Mental Status Examination Appearance: Appropriate, Disheveled (Slightly) Consciousness: Alert, Highly distractible (Lessening) Orientation: Person, Place (at least) Motor Activity: Other (No abnormal motor movements noted) Speech: Hesitant, Slow Language: Other (Today speech slow and hesitant) Fund of Knowledge: Poor Attention and Concentration: Inadequate Memory: Unremarkable Mood: Other (Today restricted) Affect: Other (Decreased range and intensity) Thought Process & Associations: Loose associations, Tangential Thought Content: Bizarre thinking, Delusional Hallucination Type: None Delusion Type: Bizarre, Other (Grandiose) Suicidal Ideation: No Suicidal Plan: No Suicidal Intention: No Homicidal Ideation: No Homicidal Plan: No Homicidal Intention: No Insight: Poor Judgment: Poor Assessment and Plan - Assessment (1) Bipolar affective, manic, severe w/ psych Code(s): F31.2 - Bipolar disorder, current episode manic severe with psychotic features Status: Acute (2) Cannabis abuse Code(s): F12.10 - Cannabis abuse, uncomplicated Status: Acute - Plan Plan: Patient today with increased episodes of nausea and vomiting, possibly some of this is self-induced. We will have her repeat labs drawn the hospitalist consult was also Justification for Continued Inpatient Stay: At this time patient with decompensated placed on a lower level of care Discharge Planning: Continue to await word from state hospital placement, and appears ECT referrals are not forthcoming Request Healthcare Surrogate/Guardian Advocate?: Yes
[2018-03-24] MEDS: Senna/Docusate Sodium 8.6/50 MG Tablet PO SCH (09:49)
[2018-03-24] MEDS: ChlorproMAZINE 50 MG Tablet PO SCH ×2 (09:49→20:52)
[2018-03-24] MEDS: Pantoprazole Sodium 20 MG DR Tablet PO SCH ×2 (09:50→20:52)
[2018-03-24] MEDS: Rivaroxaban 20 MG Tablet PO SCH (09:50)
[2018-03-24 10:35] LABS: Baso % (Auto) 0.5 % (0.0-2.0); Eos # (Auto) 0.6 th/mm3 (0.0-0.4); Hematocrit 30.4 % (35.0-46.0); Lymph # (Auto) 0.8 th/mm3 (1.0-4.8); Lymph % (Auto) 10.4 % (9.0-44.0); Mean Corpuscular HGB Conc 32.9 % (32.0-36.0); Mean Corpuscular Hemoglobin 29.4 pg (27.0-34.0); Mean Corpuscular Volume 89.3 fL (80.0-100.0); Mean Platelet Volume 8.1 fL (7.0-11.0); Mono # (Auto) 0.5 th/mm3 (0.0-0.9); Mono % (Auto) 5.7 % (0.0-8.0); Neut # (Auto) 6.2 th/mm3 (1.8-7.7); Neut % (Auto) 76.4 % (16.0-70.0); Platelet Count 278 th/mm3 (150-450); Red Blood Count 3.41 mil/mm3 (4.00-5.30); Red Cell Distribution Width 15.3 % (11.6-17.2); White Blood Count 8.1 th/mm3 (4.0-11.0)
[2018-03-24 10:49] LABS: Albumin 3.7 g/dL (3.4-5.0); Anion Gap 5 meq/L (5-15); Aspartate Aminotransferase 12 U/L (15-37); Blood Urea Nitrogen 15 mg/dL (7-18); Calcium 9.8 mg/dL (8.5-10.1); Chloride 106 meq/L (98-107); Glomerular Filtration Rate 71 mL/min (>89); Glucose,Random 130 mg/dL (74-106); Sodium 138 meq/L (136-145)
[2018-03-24 10:50] LABS: Alanine Aminotransferase 24 U/L (10-53)
[2018-03-24 10:52] LABS: Alkaline Phosphatase 81 U/L (45-117); Total Protein 6.6 g/dL (6.4-8.2)
--- NOTE | 2018-03-24 12:05 | P.PNIM ---
Subjective Interval history: Reconsult for N/V. Patient seen and examined. Upon encountering patient lying sideways in chair in the dayroom, she pulls several pieces of stick out of her mouth that she says she got from her tree outside. Patient does endorse nausea and vomiting x 1 after breakfast this morning. She denies any acute medical complaints at this time. She denies any fever or chills. She denies any abdominal pain. She does not have any nausea at this time. She denies any diarrhea, constipation or dysuria. Discussed with nursing staff. Patient had episode of small volume emesis on Friday which appeared to be self induced. This morning, patient had an episode of large nonbloody emesis after breakfast. She was given Zofran following the episode and was able to take her medications and eat a banana and crackers with no recurrence of emesis. She confirms good BM. Of note, patient has been manic during the majority of her hospitalization and last night was the first time she has had any prolonged sleep having slept about 6 hours last night. Physical Exam Vital signs: Last Vital Signs Temp 98 F 03/24/18 05:59 Pulse 98 H 03/24/18 05:59 Resp 18 03/24/18 05:59 BP 109/74 03/24/18 05:59 Pulse Ox 97 03/24/18 05:59 Intake & Output 03/22/18 03/23/18 03/24/18 03/25/18 06:59 06:59 06:59 06:59 Weight 80.2 kg Narrative: GENERAL: Well-developed, well-nourished female in no acute distress. Disheveled. Awake and alert. Sitting sideways on chair in dayroom. SKIN: Warm and dry. HEENT: Atraumatic. Normocephalic. Pupils equal and round. No scleral icterus. No injection or drainage. No nasal bleeding or discharge. NECK: Trachea midline. CARDIOVASCULAR: Regular rate and rhythm. No murmur appreciated. RESPIRATORY: No accessory muscle use. Clear to auscultation. Breath sounds equal bilaterally. GASTROINTESTINAL: Abdomen soft, non-tender, nondistended. +BS. MUSCULOSKELETAL: Extremities without clubbing, cyanosis or edema. No obvious deformities. NEUROLOGICAL: Awakes to voice, alert. No obvious cranial nerve deficits. Motor grossly within normal limits. Able to move all extremities. Normal speech. PSYCHIATRIC: Insight and judgement poor. Results Labs CBC & Chem 7: 03/24/18 10:10 03/24/18 10:10 Assessment and Plan (1) Bipolar affective, manic, severe w/ psych: Code(s): F31.2 - Bipolar disorder, current episode manic severe with psychotic features Status: Acute (2) Cannabis abuse: Code(s): F12.10 - Cannabis abuse, uncomplicated Status: Acute Plan 52-year-old white female admitted for acute hyponatremia and acute shelley with past medical history of DVT, and diabetes mellitus type 2. Recurrent N/V 03/15 STAT reconsult for dark black stools and emesis of green bile x 2 after eating her own excrement. Workup revealed on gallbladder US +1.9cm gallstone but follow up HIDA neg Metformin, Iron and Miralax held. 03/20 reconsult for recurrent N/V x 3. Patient denied ingesting her own excrement. [place] to be possibly med related. 03/24 reconsult for N/V. +episode of emesis on Friday likely self induced but witnessed large nonbloody emesis after breakfast this morning. Patient has been chewing/eating sticks from outside. Patient has also eaten crayons recently. Lab work unremarkable except for mild anemia which is chronic. [place] level 0.7. UA pending. -given recurrence of symptoms will consult GI, appreciate assistance. -patient discouraged from eating nonfood substances -Zofran prn -continue on PPI PICA hx of DAREN patient eating her own excrement, crayons, sticks, etc. concern for possible vitamin deficiency, more likely behavioral -resume po iron supplementation -obtain iron studies, B12, folate, thiamine and zinc level -discourage patient from eating nonfood substances E coli and PSAE UTI 03/15 -completed course of Ceftin -03/24 repeat UA pending Acute shelley/acute psychosis Altered mental status Likely related to psychosis and noncompliance in taking medications -with worsening symptoms, likely related to patient noncompliance and refusing to take p.o. medications extensive psych hx of schizophrenia and bipolar and long antipsychotic allergy list -management per psychiatric team Right lower extremity DVT Dependant bilateral lower extremity swelling, improved -LE US with noted nonocclusive thrombus within right proximal and distal femoral vein and profundus vein. -initially treated with sq Lovenox due to medication noncompliance and on Tegretol. -Patient now complaint with po medications. No longer on Tegretol. Re- evaluated by Hematology who transitioned patient to po Xarelto. Diabetes Mellitus Type2, controlled -Blood sugar controlled -continue on Metformin 500mg BID - on hold now 2/2 N/V. -HgbA1c 5.7 -Follow up with PCP in 3 months Hypotonic hyponatremia, resolved -Random urine sodium wnl, urine osmolality low. F/u lithium level. Possible medication induced SIADH vs GI losses -sodium tablets have been discontinued Iron deficiency anemia/Normocytic Anemia -Hematology has started patient on iron supplementation. -Stool for occult blood negative x 2 -Continue iron supplements History of/hyperlipidemia/hypothyroidism - continue home medications, atorvastatin, Synthroid - TSH 0.773 - Lipid panel stable DVT prop Xarelto Progress Note: Quality VTE Deep Vein Thrombosis/Pulmonary Embolism Present on Admission: No
[2018-03-24 12:21] LABS: Amylase 57 U/L (25-115); Lipase 129 U/L (73-393)
[2018-03-24] MEDS: ChlorproMAZINE 25 MG Tablet PO SCH ×2 (13:05→18:08)
[2018-03-24 13:21] LABS: % Iron Saturation 11.2 % (20-50)
[2018-03-24 13:46] LABS: Folate 19.4 ng/mL (3.1-17.5)
--- NOTE | 2018-03-24 15:07 | XR ---
EXAM DATE: 03/24/2018 2:59 PM EST AGE/SEX: 52 years / Female INDICATIONS: Short of breath. CLINICAL DATA: This is the patient's subsequent encounter. Patient reports that signs and symptoms h ave been present for 1 week and indicates a pain score of 0/10. MEDICAL/SURGICAL HISTORY: . Hypothyroidism. Hypertension. None. COMPARISON: . FINDINGS: A single AP view of the chest demonstrates the lungs to be symmetrically aerated without evidence of mass, infiltrate or effusion. The cardiomediastinal contours are unremarkable. Osseous structures a re intact. CONCLUSION: No acute cardiopulmonary process. Electronically signed by: Darryl Carter MD Board Certified Radiologist 03/24/2018 3:06 PM EST
--- NOTE | 2018-03-24 16:42 | P.CONGI ---
History of Present Illness Consult date: 03/24/18 Consult reason: Recurring nausea vomiting Gallbladder ultrasound positive gallstones Negative HIDA scan Chief complaint: Bipolar disorder History of Present Illness: This patient is a 52-year-old female with past medical history significant for bipolar disorder, anemia, depression, hyperlipidemia, ischemic colitis, hypertension, hypothyroidism and schizophrenia. Patient currently admitted to psychiatric unit due to hyperactivity poor sleep, grandiose and euphoria. Our service has been consulted to evaluate patient for recurring nausea and vomiting. Staff reports patient vomited x1 this a.m. after breakfast. Positive Jones sign on exam. Gallbladder ultrasound revealed gallstones, negative HIDA scan. She denies any nausea at this time, denies diarrhea or constipation at present. Medical records show patient admits to regular use of cannabis and irregular use of alcohol. There is no noted significant family history documented. <Sandee Kim - Last Filed: 03/24/18 16:27> Review of Systems All other systems reviewed negative except as stated in HPI, unobtainable due to mental condition <Sandee Kim - Last Filed: 03/24/18 16:27> PMFSH - History History Provided By: Patient - Medical History Medical History: Medical History (Last Reviewed 02/05/18 @ 18:14 by Darinel Fihser MD) Anemia Bipolar 1 disorder Depression Hyperlipidemia Hypertension Hypothyroid Schizophrenia - Surgical History Surgical History: Surgical History (Last Updated 02/05/18 @ 18:14 by Darinel Fisher MD) Hx of tonsillectomy - Family History Family History: Family History (Last Reviewed 01/17/18 @ 18:19 by Winston Ely DO) Other Family history unknown - Tobacco History Second Hand Smoke Exposure: No Smoking Status: Never smoker - Alcohol History How Often Do You Have a Drink Containing Alcohol: 4 or more times a week - Substance Use History Substance History: Unable to Obtain - Immunization History Tetanus Immunization: Unsure Hx Influenza Vaccine This Season: Yes <Sandee Kim - Last Filed: 03/24/18 16:27> - Medical History Medical History: Medical History (Last Reviewed 02/05/18 @ 18:14 by Darinel Fisher MD) Anemia Bipolar 1 disorder Depression Hyperlipidemia Hypertension Hypothyroid Schizophrenia - Surgical History Surgical History: Surgical History (Last Updated 02/05/18 @ 18:14 by Darinel Fisher MD) Hx of tonsillectomy - Family History Family History: Family History (Last Reviewed 01/17/18 @ 18:19 by Winston Ely DO) Other Family history unknown <Edmond Beth - Last Filed: 03/25/18 09:03> Medications and Allergies Active Medications: Active Medications Acetaminophen (Tylenol) 650 mg PO Q4H PRN PRN Reason: Pain 1-5 or Temp >101F Last Admin: 03/24/18 05:41 Dose: 650 mg Al Hydrox/Mg Hydrox/Simethicone (Mag-Al Plus Susp Liq) 30 ml PO Q6H PRN PRN Reason: DYSPEPSIA Last Admin: 02/06/18 12:31 Dose: 30 ml Al Hydroxide/Mg Hydroxide (Milk Of Magnesia Liq) 30 ml PO Q12H PRN PRN Reason: Mild Constipation Last Admin: 02/11/18 05:20 Dose: 30 ml Atorvastatin Calcium (Lipitor) 40 mg PO DAILY [facility] Last Admin: 03/24/18 09:49 Dose: 40 mg Chlorpromazine HCl (Thorazine) 150 mg PO BID [facility] Last Admin: 03/24/18 09:49 Dose: 150 mg Chlorpromazine HCl (Thorazine) 100 mg PO BID@1300,1800 [facility] Last Admin: 03/24/18 13:04 Dose: 100 mg Chlorpromazine HCl (Thorazine) 25 mg PO BID@1300,1800 [facility] Last Admin: 03/24/18 13:05 Dose: 25 mg Ferrous Sulfate (Ferosul) 325 mg PO BID [facility] Last Admin: 03/16/18 09:50 Dose: Not Given Levothyroxine Sodium (Synthroid) 75 mcg PO DAILY@0600 [facility] Last Admin: 03/24/18 05:39 Dose: 75 mcg [place] Carbonate ([place] Carbonate) 300 mg PO QID [facility] Last Admin: 03/24/18 13:05 Dose: 300 mg Lorazepam (Ativan) 1 mg PO TID@0900,1300,2100 [facility] Last Admin: 03/09/18 08:21 Dose: Not Given Metformin [facility] ([facility]) [facility] Last Admin: 03/16/18 09:50 Dose: Not Given Miscellaneous (Pill Splitter) 1 each OTHER UNSCH PRN PRN Reason: PILL SPLITTER Last Admin: 02/17/18 00:25 Dose: 1 each Multivitamins (Theragran) 1 tab PO DAILY [facility] Last Admin: 03/24/18 09:50 Dose: 1 tab Ondansetron HCl (Zofran Odt) 4 mg PO Q6H PRN PRN Reason: NAUSEA OR VOMITING Last Admin: 03/24/18 09:06 Dose: 4 mg Padimate O ([place]) 1 applicatio TOPICAL UNSCH PRN PRN Reason: Dry lips Last Admin: 02/20/18 04:39 Dose: 1 applicatio Pantoprazole Sodium (Protonix) 20 mg PO BID [facility] Last Admin: 03/24/18 09:50 Dose: 20 mg Polyethylene Glycol (Miralax) 17 gm PO DAILY [facility] Last Admin: 03/16/18 09:50 Dose: Not Given Rivaroxaban (Xarelto) 20 mg PO DAILY [facility] Last Admin: 03/24/18 09:50 Dose: 20 mg Senna/Docusate Sodium (Sarahi-Colace) 1 tab PO DAILY [facility] Last Admin: 03/24/18 09:49 Dose: 1 tab Trazodone HCl (Desyrel) 150 mg PO HS [facility] Last Admin: 03/23/18 20:25 Dose: 150 mg <Sandee Kim - Last Filed: 03/24/18 16:27> Active Medications: Active Medications Acetaminophen (Tylenol) 650 mg PO Q4H PRN PRN Reason: Pain 1-5 or Temp >101F Last Admin: 03/24/18 05:41 Dose: 650 mg Al Hydrox/Mg Hydrox/Simethicone (Mag-Al Plus Susp Liq) 30 ml PO Q6H PRN PRN Reason: DYSPEPSIA Last Admin: 02/06/18 12:31 Dose: 30 ml Al Hydroxide/Mg Hydroxide (Milk Of Magnesia Liq) 30 ml PO Q12H PRN PRN Reason: Mild Constipation Last Admin: 02/11/18 05:20 Dose: 30 ml Atorvastatin Calcium (Lipitor) 40 mg PO DAILY [facility] Last Admin: 03/25/18 08:05 Dose: 40 mg Chlorpromazine HCl (Thorazine) 150 mg PO BID [facility] Last Admin: 03/25/18 08:04 Dose: 150 mg Chlorpromazine HCl (Thorazine) 100 mg PO BID@1300,1800 [facility] Last Admin: 03/24/18 18:08 Dose: 100 mg Chlorpromazine HCl (Thorazine) 25 mg PO BID@1300,1800 [facility] Last Admin: 03/24/18 18:08 Dose: 25 mg Ferrous Sulfate (Ferosul) 325 mg PO BID [facility] Last Admin: 03/25/18 08:05 Dose: 325 mg Levothyroxine Sodium (Synthroid) 75 mcg PO DAILY@0600 [facility] Last Admin: 03/25/18 07:02 Dose: 75 mcg [place] Carbonate ([place] Carbonate) 300 mg PO QID [facility] Last Admin: 03/25/18 08:05 Dose: 300 mg Lorazepam (Ativan) 1 mg PO TID@0900,1300,2100 [facility] Last Admin: 03/09/18 08:21 Dose: Not Given Metformin HCl (Glucophage) [facility] Last Admin: 03/16/18 09:50 Dose: Not Given Miscellaneous (Pill Splitter) 1 each OTHER UNSCH PRN PRN Reason: PILL SPLITTER Last Admin: 02/17/18 00:25 Dose: 1 each Multivitamins (Theragran) 1 tab PO DAILY [facility] Last Admin: 03/24/18 09:50 Dose: 1 tab Ondansetron HCl (Zofran Odt) 4 mg PO Q6H PRN PRN Reason: NAUSEA OR VOMITING Last Admin: 03/24/18 09:06 Dose: 4 mg Padimate O ([place]) 1 applicatio TOPICAL UNSCH PRN PRN Reason: Dry lips Last Admin: 02/20/18 04:39 Dose: 1 applicatio Pantoprazole Sodium (Protonix) 20 mg PO BID [facility] Last Admin: 03/25/18 08:05 Dose: 20 mg Polyethylene Glycol (Miralax) 17 gm PO DAILY [facility] Last Admin: 03/16/18 09:50 Dose: Not Given Rivaroxaban (Xarelto) 20 mg PO DAILY [facility] Last Admin: 03/25/18 08:05 Dose: 20 mg Senna/Docusate Sodium (Sarahi-Colace) 1 tab PO DAILY [facility] Last Admin: 03/25/18 08:06 Dose: 1 tab Trazodone HCl (Desyrel) 150 mg PO HS [facility] Last Admin: 03/24/18 20:44 Dose: 150 mg <Edmond Beth - Last Filed: 03/25/18 09:03> Allergies Allergy/AdvReac Type Severity Reaction Status Date / Time divalproex sodium Allergy Severe unknown Verified 01/19/18 17:05 haloperidol [From Haldol] Allergy Unknown UNKNOWN Verified 01/19/18 17:05 lamotrigine Allergy Unknown unknown Verified 01/19/18 17:05 ziprasidone Allergy Unknown unknown Verified 01/19/18 17:05 quetiapine AdvReac Severe Hallucinati Verified 01/19/18 17:05 ons TAPE Allergy Unknown Rash Uncoded 01/14/18 12:58 Home Medications Medication Instructions Recorded Confirmed Type atorvastatin 40 mg PO DAILY 01/14/18 01/14/18 History benztropine 1 mg PO DAILY 01/14/18 01/14/18 History brexpiprazole [Rexulti] 3 mg PO DAILY 01/14/18 01/14/18 History levothyroxine 75 mcg PO DAILY 01/14/18 01/14/18 History metformin 1,000 mg PO BID 01/14/18 01/14/18 History metoclopramide HCl 5 mg PO QID 01/14/18 01/14/18 History multivitamin 1 cap PO QAM 01/14/18 01/14/18 History omeprazole 20 mg PO DAILY 01/14/18 01/14/18 History rivaroxaban [Xarelto] 10 mg PO DAILY 01/14/18 01/14/18 History Exam Vital signs: Vital Signs 03/24/18 05:59 03/24/18 15:56 Temperature 98 F 99.4 F Pulse Rate 98 H 87 Respiratory Rate 18 18 Blood Pressure 109/74 130/69 Pulse Oximetry 97 99 Intake & Output 03/23/18 03/24/18 03/24/18 18:59 06:59 18:59 Other: Date of Last Bowel Movement 03/16/18 - Constitutional no acute distress, average body habitus - Routine HEENT Exam Head: Present: normocephalic - Routine Neck Exam Present: supple - Routine Respiratory Exam Present: CTA bilaterally. Absent: accessory muscle use - Routine Cardiovascular Exam Present: RRR, S1, S2 - Routine Abdominal Exam Present: soft, normoactive bowel sounds, tenderness. Absent: distended, guarding, firm Comments: Positive Jones sign on exam - Routine Extremities Exam Absent: edema - Routine Skin Exam Present: dry, warm. Absent: pallor - Routine Neurological Exam Present: alert <Sandee Kim - Last Filed: 03/24/18 16:27> Vital signs: Vital Signs 03/24/18 15:56 Temperature 99.4 F Pulse Rate 87 Respiratory Rate 18 Blood Pressure 130/69 Pulse Oximetry 99 Intake & Output 03/24/18 03/25/18 03/25/18 18:59 06:59 18:59 Other: Date of Last Bowel Movement 03/16/18 <PilaresequielRatnaEdmond - Last Filed: 03/25/18 09:03> Results - Labs CBC & Chem 7: 03/24/18 10:10 03/24/18 10:10 Labs: Laboratory Results - last 24 hr 03/24/18 03/24/18 03/24/18 10:10 10:10 10:10 WBC 8.1 RBC 3.41 L Hgb 10.0 L Hct 30.4 L MCV 89.3 MCH 29.4 MCHC 32.9 RDW 15.3 Plt Count 278 MPV 8.1 Neut % (Auto) 76.4 H Lymph % (Auto) 10.4 [place] % (Auto) 5.7 Eos % (Auto) 7.0 H Baso % (Auto) 0.5 Neut # (Auto) 6.2 Lymph # (Auto) 0.[address] [place] # (Auto) 0.5 Eos # (Auto) 0.6 H Baso # (Auto) 0.0 WBC Differential . Differential Comment Auto diff final Sodium 138 Potassium 4.0 Chloride 106 Carbon Dioxide 27.0 Anion Gap 5 BUN 15 Creatinine 0.84 Estimated GFR 71 L Random Glucose 130 H Calcium 9.8 Iron TIBC % Saturation Ferritin Total Bilirubin 0.2 AST 12 L ALT 24 Alkaline Phosphatase 81 Total Protein 6.6 Albumin 3.7 Amylase Lipase Vitamin B12 Folate [place] 0.7 03/24/18 03/24/18 10:10 10:10 WBC RBC Hgb Hct MCV MCH MCHC RDW Plt Count MPV Neut % (Auto) Lymph % (Auto) [place] % (Auto) Eos % (Auto) Baso % (Auto) Neut # (Auto) Lymph # (Auto) [facility] # (Auto) Eos # (Auto) Baso # (Auto) WBC Differential Differential Comment Sodium Potassium Chloride Carbon Dioxide Anion Gap BUN Creatinine Estimated GFR Random Glucose Calcium Iron 33 L TIBC 294 % Saturation 11.2 L Ferritin 32 Total Bilirubin AST ALT Alkaline Phosphatase Total Protein Albumin Amylase 57 Lipase 129 Vitamin B12 326 Folate 19.4 H [place] - Imaging Impressions Chest X-Ray 03/24/18 00:00 CONCLUSION: No acute cardiopulmonary process. <KimSandee - Last Filed: 03/24/18 16:27> - Labs CBC & Chem 7: 03/24/18 10:10 03/24/18 10:10 Labs: Laboratory Results - last 24 hr 03/24/18 03/24/18 03/24/18 10:10 10:10 10:10 WBC 8.1 RBC 3.41 L Hgb 10.0 L Hct 30.4 L MCV 89.3 MCH 29.4 MCHC 32.9 RDW 15.3 Plt Count 278 MPV 8.1 Neut % (Auto) 76.4 H Lymph % (Auto) 10.4 [facility] % (Auto) 5.7 Eos % (Auto) 7.0 H Baso % (Auto) 0.5 Neut # (Auto) 6.2 Lymph # (Auto) 0.[address] [place] # (Auto) 0.5 Eos # (Auto) 0.6 H Baso # (Auto) 0.0 WBC Differential . Differential Comment Auto diff final Sodium 138 Potassium 4.0 Chloride 106 Carbon Dioxide 27.0 Anion Gap 5 BUN 15 Creatinine 0.84 Estimated GFR 71 L Random Glucose 130 H Calcium 9.8 Iron TIBC % Saturation Ferritin Total Bilirubin 0.2 AST 12 L ALT 24 Alkaline Phosphatase 81 Total Protein 6.6 Albumin 3.7 Amylase Lipase Vitamin B12 Folate Urine Color Urine Clarity Urine pH Ur Specific [place] Urine Protein Urine Glucose (UA) Urine Ketones Urine Occult Blood Urine Nitrate Urine Bilirubin Urine Urobilinogen Ur Leukocyte Esterase Urine WBC Ur Squamous Epith Cells Urine Mucus Micro UA Comment Ur Microscopic Review Urine Culture Comments [place] 0.7 03/24/18 03/24/18 03/25/18 10:10 10:10 03:25 WBC RBC Hgb Hct MCV MCH MCHC RDW Plt Count MPV Neut % (Auto) Lymph % (Auto) [place] % (Auto) Eos % (Auto) Baso % (Auto) Neut # (Auto) Lymph # (Auto) [place] # (Auto) Eos # (Auto) Baso # (Auto) WBC Differential Differential Comment Sodium Potassium Chloride Carbon Dioxide Anion Gap BUN Creatinine Estimated GFR Random Glucose Calcium Iron 33 L TIBC 294 % Saturation 11.2 L Ferritin 32 Total Bilirubin AST ALT Alkaline Phosphatase Total Protein Albumin Amylase 57 Lipase 129 Vitamin B12 326 Folate 19.4 H Urine Color Straw Urine Clarity Clear Urine pH 8.0 Ur Specific [place] 1.005 Urine Protein Negative Urine Glucose (UA) Negative Urine Ketones Negative Urine Occult Blood Negative Urine Nitrate Negative Urine Bilirubin Negative Urine Urobilinogen Less than 2 Ur Leukocyte Esterase Negative Urine WBC 2 Ur Squamous Epith Cells <1 Urine Mucus Few H Micro UA Comment Culture not ind Ur Microscopic Review Not Reportable Urine Culture Comments Culture not ind [place] - Imaging Impressions Chest X-Ray 03/24/18 00:00 CONCLUSION: No acute cardiopulmonary process. <Edmond Beth - Last Filed: 03/25/18 09:03> Assessment and Plan (1) Nausea & vomiting Status: Acute Code(s): R11.2 - Nausea with vomiting, unspecified (2) Abdominal pain Status: Acute Code(s): R10.9 - Unspecified abdominal pain - Plan This patient is a 52-year-old female with past medical history significant for bipolar disorder, anemia, depression, hyperlipidemia, ischemic colitis, hypertension, hypothyroidism and schizophrenia. Patient currently admitted to psychiatric unit due to hyperactivity poor sleep, grandiose and euphoria. Our service has been consulted to evaluate patient for recurring nausea and vomiting. Staff reports patient vomited x1 this a.m. after breakfast. Positive Jones sign on exam. Gallbladder ultrasound revealed gallstones, negative HIDA scan. She denies any nausea at this time, denies diarrhea or constipation at present. Medical records show patient admits to regular use of cannabis and irregular use of alcohol. There is no noted significant family history documented. Nausea Abdominal pain Staff endorses nausea and vomiting onset 2 days ago. Staff reports patient vomited x1 this a.m. after breakfast. Positive Jones sign on exam. This is unlikely gastritis, patient has been on pantoprazole 20 mg p.o. twice daily for an extended amount of time; 02/06/2018 03/16/2018 gallbladder ultrasound Echogenic gallstone with no wall thickening or pericholecystic fluid. Mild pyelocaliectasis in the right kidney. 03/17/2018 HIDA scan Normal gallbladder visualization no evidence of biliary obstruction. Normal calculated ejection fraction of approximately 70%. WBC 8.1 hemoglobin 10.0 hematocrit 30.4 platelet count 278 Total bilirubin 0.2 AST 12 ALT 24 alk phos 81 amylase 57 lipase 129 Plan Diet as tolerated General surgery consult for evaluation of need for laparoscopic cholecystectomy Continue PPI Monitor labs Antiemetics and analgesics as per attending Supportive care Further recommendations to follow This patient has been seen by myself and Dr. Beth and this note is written on his behalf - Attending Attestation Dr. Beth <Sandee Kim - Last Filed: 03/24/18 16:27> (1) Nausea & vomiting Status: Acute Code(s): R11.2 - Nausea with vomiting, unspecified (2) Abdominal pain Status: Acute Code(s): R10.9 - Unspecified abdominal pain - Attending Attestation I have seen and examined the patient. I agree with the above note and recommendations. <Edmond Beth - Last Filed: 03/25/18 09:03>
--- NOTE | 2018-03-24 18:23 | P.CONGS ---
HPI Gen Surgery Consult Note Consult date: 03/24/18 Reason for consult: other (emesis after eating) Requesting physician: Maira Martel Narrative: This is a 52 year old female with a past medical history of DVT and bipolar who is admitted to the psychiatric unit with a manic episode in January. She has been having emesis after eating according to the nurse. In the records, the nurses have been documenting that the patient has been eating sticks, crayons ect. A gallbladder ultrasound was done on Mar 16 which shows a gallstone with no gallbladder wall thickening or pericholecystic fluid. A HIDA scan was done on Mar 17 which shows normal visualization of the gallbladder with no evidence of biliary obstruction; EF is 70%. Her WBC and liver enzymes are normal. She is a poor historian. A General Surgery consultation has been requested. Review of Systems unobtainable due to mental condition PMFSH - History History Provided By: Patient, Medical Record - Medical History Medical History: Medical History (Last Reviewed 03/25/18 @ 10:51 by ZIA Malagon) Anemia Bipolar 1 disorder Depression Hyperlipidemia Hypertension Hypothyroid Schizophrenia - Surgical History Surgical History: Surgical History (Last Updated 02/05/18 @ 18:14 by Darinel Fisher MD) Hx of tonsillectomy - Family History Family History: Family History (Last Reviewed 01/17/18 @ 18:19 by Winston Ely DO) Other Family history unknown - Tobacco History Second Hand Smoke Exposure: No Smoking Status: Never smoker - Alcohol History How Often Do You Have a Drink Containing Alcohol: 4 or more times a week - Substance Use History Substance History: Unable to Obtain - Immunization History Tetanus Immunization: Unsure Hx Influenza Vaccine This Season: Yes Medications and Allergies Allergies Allergy/AdvReac Type Severity Reaction Status Date / Time divalproex sodium Allergy Severe unknown Verified 01/19/18 17:05 haloperidol [From Haldol] Allergy Unknown UNKNOWN Verified 01/19/18 17:05 lamotrigine Allergy Unknown unknown Verified 01/19/18 17:05 ziprasidone Allergy Unknown unknown Verified 01/19/18 17:05 quetiapine AdvReac Severe Hallucinati Verified 01/19/18 17:05 ons TAPE Allergy Unknown Rash Uncoded 01/14/18 12:58 Home Medications Medication Instructions Recorded Confirmed Type atorvastatin 40 mg PO DAILY 01/14/18 01/14/18 History benztropine 1 mg PO DAILY 01/14/18 01/14/18 History brexpiprazole [Rexulti] 3 mg PO DAILY 01/14/18 01/14/18 History levothyroxine 75 mcg PO DAILY 01/14/18 01/14/18 History metformin 1,000 mg PO BID 01/14/18 01/14/18 History metoclopramide HCl 5 mg PO QID 01/14/18 01/14/18 History multivitamin 1 cap PO QAM 01/14/18 01/14/18 History omeprazole 20 mg PO DAILY 01/14/18 01/14/18 History rivaroxaban [Xarelto] 10 mg PO DAILY 01/14/18 01/14/18 History Active Medications: Active Medications Acetaminophen (Tylenol) 650 mg PO Q4H PRN PRN Reason: Pain 1-5 or Temp >101F Last Admin: 03/24/18 05:41 Dose: 650 mg Al Hydrox/Mg Hydrox/Simethicone (Mag-Al Plus Susp Liq) 30 ml PO Q6H PRN PRN Reason: DYSPEPSIA Last Admin: 02/06/18 12:31 Dose: 30 ml Al Hydroxide/Mg Hydroxide (Milk Of Magnesia Liq) 30 ml PO Q12H PRN PRN Reason: Mild Constipation Last Admin: 02/11/18 05:20 Dose: 30 ml Atorvastatin Calcium (Lipitor) 40 mg PO DAILY [facility] Last Admin: 03/24/18 09:49 Dose: 40 mg Chlorpromazine HCl (Thorazine) 150 mg PO BID [facility] Last Admin: 03/24/18 09:49 Dose: 150 mg Chlorpromazine HCl (Thorazine) 100 mg PO BID@1300,1800 [facility] Last Admin: 03/24/18 18:08 Dose: 100 mg Chlorpromazine HCl (Thorazine) 25 mg PO BID@1300,1800 [facility] Last Admin: 03/24/18 18:08 Dose: 25 mg Ferrous Sulfate (Ferosul) 325 mg PO BID [facility] Last Admin: 03/16/18 09:50 Dose: Not Given Levothyroxine Sodium (Synthroid) 75 mcg PO DAILY@0600 [facility] Last Admin: 03/24/18 05:39 Dose: 75 mcg [place] Carbonate ([place] Carbonate) 300 mg PO QID [facility] Last Admin: 03/24/18 18:08 Dose: 300 mg Lorazepam (Ativan) 1 mg PO TID@0900,1300,2100 [facility] Last Admin: 03/09/18 08:21 Dose: Not Given Metformin HCl (Glucophage) 500 mg PO BIDPC [facility] Last Admin: 03/16/18 09:50 Dose: Not Given Miscellaneous (Pill Splitter) 1 each OTHER UNSCH PRN PRN Reason: PILL SPLITTER Last Admin: 02/17/18 00:25 Dose: 1 each Multivitamins (Theragran) 1 tab PO DAILY [facility] Last Admin: 03/24/18 09:50 Dose: 1 tab Ondansetron HCl (Zofran Odt) 4 mg PO Q6H PRN PRN Reason: NAUSEA OR VOMITING Last Admin: 03/24/18 09:06 Dose: 4 mg Padimate O ([place]) 1 applicatio TOPICAL UNSCH PRN PRN Reason: Dry lips Last Admin: 02/20/18 04:39 Dose: 1 applicatio Pantoprazole Sodium (Protonix) 20 mg PO BID [facility] Last Admin: 03/24/18 09:50 Dose: 20 mg Polyethylene Glycol (Miralax) 17 gm PO DAILY [facility] Last Admin: 03/16/18 09:50 Dose: Not Given Rivaroxaban (Xarelto) 20 mg PO DAILY [facility] Last Admin: 03/24/18 09:50 Dose: 20 mg Senna/Docusate Sodium (Sarahi-Colace) 1 tab PO DAILY [facility] Last Admin: 03/24/18 09:49 Dose: 1 tab Trazodone HCl (Desyrel) 150 mg PO HS [facility] Last Admin: 03/23/18 20:25 Dose: 150 mg Exam Vital signs: Vital Signs 03/24/18 05:59 03/24/18 15:56 Temperature 98 F 99.4 F Pulse Rate 98 H 87 Respiratory Rate 18 18 Blood Pressure 109/74 130/69 Pulse Oximetry 97 99 Intake & Output 03/23/18 03/24/18 03/24/18 18:59 06:59 18:59 Other: Date of Last Bowel Movement 03/16/18 Narrative: GENERAL: 52 year old female in common area on arrival; RN moved to patient's room. SKIN: Warm and dry. HEAD: Atraumatic. Normocephalic. EYES: Pupils equal and round. No scleral icterus. No injection or drainage. ENT: No nasal bleeding or discharge. Mucous membranes pink and moist. NECK: Trachea midline. CARDIOVASCULAR: Regular rate and rhythm. RESPIRATORY: No accessory muscle use. Clear to auscultation. Breath sounds equal bilaterally. GASTROINTESTINAL: Abdomen soft, nondistended. No RUQ tenderness with palpation. Easily reducible umbilical hernia. MUSCULOSKELETAL: Extremities without clubbing, cyanosis, or edema. No obvious deformities. NEUROLOGICAL: Awake and alert. Motor grossly within normal limits. Five out of 5 muscle strength in the arms and legs. Laughing at everything said. PSYCHIATRIC: Happy; laughing. Results - Labs 03/24/18 10:10 03/25/18 14:30 Laboratory Results - last 24 hr 03/24/18 03/24/18 03/24/18 10:10 10:10 10:10 WBC 8.1 RBC 3.41 L Hgb 10.0 L Hct 30.4 L MCV 89.3 MCH 29.4 MCHC 32.9 RDW 15.3 Plt Count 278 MPV 8.1 Neut % (Auto) 76.4 H Lymph % (Auto) 10.4 [place] % (Auto) 5.7 Eos % (Auto) 7.0 H Baso % (Auto) 0.5 Neut # (Auto) 6.2 Lymph # (Auto) 0.8 L [place] # (Auto) 0.5 Eos # (Auto) 0.6 H Baso # (Auto) 0.0 WBC Differential . Differential Comment Auto diff final Sodium 138 Potassium 4.0 Chloride 106 Carbon Dioxide 27.0 Anion Gap 5 BUN 15 Creatinine 0.84 Estimated GFR 71 L Random Glucose 130 H Calcium 9.8 Iron TIBC % Saturation Ferritin Total Bilirubin 0.2 AST 12 L ALT 24 Alkaline Phosphatase 81 Total Protein 6.6 Albumin 3.7 Amylase Lipase Vitamin B12 Folate [place] 0.7 03/24/18 03/24/18 10:10 10:10 WBC RBC Hgb Hct MCV MCH MCHC RDW Plt Count MPV Neut % (Auto) Lymph % (Auto) [place] % (Auto) Eos % (Auto) Baso % (Auto) Neut # (Auto) Lymph # (Auto) [place] # (Auto) Eos # (Auto) Baso # (Auto) WBC Differential Differential Comment Sodium Potassium Chloride Carbon Dioxide Anion Gap BUN Creatinine Estimated GFR Random Glucose Calcium Iron 33 L TIBC 294 % Saturation 11.2 L Ferritin 32 Total Bilirubin AST ALT Alkaline Phosphatase Total Protein Albumin Amylase 57 Lipase 129 Vitamin B12 326 Folate 19.4 H [place] - Imaging Imaging: ITS Impressions Abdomen X-Ray 01/19/18 00:00 CONCLUSION: Mild constipation. No acute findings. Pelvis Ultrasound 02/13/18 00:00 CONCLUSION: 1. Unremarkable transabdominal ultrasound examination of the pelvis. The endometrium appears homogeneous and normal in thickness. However, evaluation is limited due to lack of transvaginal imaging. Venous Doppler Study 02/28/18 00:00 CONCLUSION: No evidence of venous thrombosis of the left upper extremity. Gallbladder Ultrasound 03/16/18 00:00 CONCLUSION: 1. Echogenic gallstone with no wall thickening or pericholecystic fluid. 2. Mild pyelocaliectasis in the right kidney. Bile Acid Absorption NM 03/17/18 13:51 CONCLUSION: 1. Normal gallbladder visualization no evidence of biliary obstruction. 2. Normal calculated ejection fraction of approximately 70%. Chest X-Ray 03/24/18 00:00 CONCLUSION: No acute cardiopulmonary process. CT scan - abdomen: image reviewed Additional studies: HIDA reviewed Assessment and Plan - Assessment (1) Nausea & vomiting Code(s): R11.2 - Nausea with vomiting, unspecified Status: Acute Plan: 52 year old female with emesis after eating -Exam unimpressive -Reviewed both US and HIDA scan and no evidence of cholecystitis -Diet as tolerated -Nausea/vomiting likely related to pica -No surgical plans -GS will sign off; Please call if any issues - Plan Discussed Condition With: Dr. Madhu LIZARRAGA RN - Attending Attestation Patient seen and examined with ZIA who documented our visit. No clinical signs or radiologic signs of gallbladder dysfunction at all. Doubt emesis related to any sort of gallbladder disease. REcommend medical management. Will see prn LUISA AGUILLON MD FACS
[2018-03-24] MEDS: traZODone 100 MG Tablet PO SCH (20:44)
[2018-03-24] MEDS: Ferrous Sulfate 325 MG Tablet PO SCH (20:52)
[2018-03-25 03:50] LABS: Bilirubin,Urine Negative (Negative); Clarity,Urine Clear (Clear); Color,Urine Straw (Yellw/Straw); Glucose,Urine (UA) Negative (Negative); Leukocyte Esterase,Urine Negative (Negative); Mucus,Urine Few /lpf (Occasional); Nitrite,Urine Negative (Negative); Specific Gravity,Urine 1.005 (1.002-1.035); Squamous Epithelial Cell,Urine <1 /hpf (0-5)
[2018-03-25] MEDS: Levothyroxine 75 MCG Tablet PO SCH (07:02)
[2018-03-25] MEDS: ChlorproMAZINE 50 MG Tablet PO SCH ×2 (08:04→20:35)
[2018-03-25] MEDS: Ferrous Sulfate 325 MG Tablet PO SCH ×2 (08:05→20:35)
[2018-03-25] MEDS: Pantoprazole Sodium 20 MG DR Tablet PO SCH ×2 (08:05→20:35)
[2018-03-25] MEDS: Rivaroxaban 20 MG Tablet PO SCH (08:05)
[2018-03-25] MEDS: Senna/Docusate Sodium 8.6/50 MG Tablet PO SCH (08:06)
--- NOTE | 2018-03-25 10:21 | P.PNPSY ---
Subjective Chief Complaint: Bipolar I Disorder - current Manic Episode Mental Status Examination Appearance: Appropriate, Disheveled (Slightly) Consciousness: Alert, Highly distractible (Lessening) Orientation: Person, Place (at least) Motor Activity: Other (No abnormal motor movements noted) Speech: Hesitant, Slow Language: Other (Today speech slow and hesitant) Fund of Knowledge: Poor Attention and Concentration: Inadequate Memory: Unremarkable Mood: Other (Today restricted) Affect: Other (Decreased range and intensity) Thought Process & Associations: Loose associations, Tangential Thought Content: Bizarre thinking, Delusional Hallucination Type: None Delusion Type: Bizarre, Other (Grandiose) Suicidal Ideation: No Suicidal Plan: No Suicidal Intention: No Homicidal Ideation: No Homicidal Plan: No Homicidal Intention: No Insight: Poor Judgment: Poor Assessment and Plan - Assessment (1) Bipolar affective, manic, severe w/ psych Code(s): F31.2 - Bipolar disorder, current episode manic severe with psychotic features Status: Acute (2) Cannabis abuse Code(s): F12.10 - Cannabis abuse, uncomplicated Status: Acute - Plan Request Healthcare Surrogate/Guardian Advocate?: Yes
--- NOTE | 2018-03-25 10:27 | P.PNPSY ---
Subjective Chief Complaint: Bipolar I Disorder - current Manic Episode Remarks: Patient seen in day room with sitter in floor staff, chart reviewed, GI consult noted reviewed and appreciated, there is a general surgical graft of the note in the record at this time also. We will patient no complaints of nausea or vomiting today she is sitting quietly in the dayroom. Denying suicidality voices or visions I asked her if she is hearing voices that she is looked at me and said you. Patient continues with subtly inappropriate sexual remarks and behaviors. For now continue treatment. Continue to await word from state hospital placement Review of Systems All other systems reviewed negative except as stated in HPI Mental Status Examination Appearance: Appropriate, Disheveled (Slightly) Consciousness: Alert, Highly distractible (Lessening) Orientation: Person, Place (at least) Motor Activity: Other (No abnormal motor movements noted) Speech: Hesitant, Slow Language: Other (Today speech slow and hesitant) Fund of Knowledge: Poor Attention and Concentration: Inadequate Memory: Unremarkable Mood: Other (Today restricted) Affect: Other (Decreased range and intensity) Thought Process & Associations: Loose associations, Tangential Thought Content: Bizarre thinking, Delusional Hallucination Type: None Delusion Type: Bizarre, Other (Grandiose) Suicidal Ideation: No Suicidal Plan: No Suicidal Intention: No Homicidal Ideation: No Homicidal Plan: No Homicidal Intention: No Insight: Poor Judgment: Poor Assessment and Plan - Assessment (1) Bipolar affective, manic, severe w/ psych Code(s): F31.2 - Bipolar disorder, current episode manic severe with psychotic features Status: Acute (2) Cannabis abuse Code(s): F12.10 - Cannabis abuse, uncomplicated Status: Acute - Plan Plan: At this time patient remains quite manic psychotic delusional intrusive and paranoid. Compliant medication. Continue to await word from state hospital Justification for Continued Inpatient Stay: At this time patient with decompensated placed in a lower level of care Discharge Planning: Continue to await word from state hospital referral Request Healthcare Surrogate/Guardian Advocate?: Yes
[2018-03-25] MEDS: ChlorproMAZINE 25 MG Tablet PO SCH ×2 (12:24→17:27)
--- NOTE | 2018-03-25 13:48 | P.DIET ---
Nutritional Evaluation Type of nutrition evaluation: follow-up Nutrition consult regarding: Diet Evaluation Nutrition screening: Poor PO Intake Screening comments: 02/27 [facility] [place] for poor PO intake 03/02 [facility] [place] PO intake Subjective Subjective Comments: Pt w/100% po for breakfast and 75% po for lunch today. Brought forward from previous note 03/18/18: Nursing staff reports pt is drinking the Glucerna Shakes, including when she skips a breakfast meal, pt drinks the shakes. Objective - Diagnosis bipolar disoder - Objective % IBW: 121 (IBW = 145lb) Body Weight Used for Calculations: Actual Energy Needs - Lower Range (kCal/kg): 25 Energy Needs - Upper Range (kCal/kg): 30 Lower Limit kCal/kg (kCals): 1,990 Upper Limit kCal/kg (kCals): 2,388 Lower Limit Protein Factor (Grams per Kg): 1.1 Upper Limit Protein Factor (Grams per Kg): 1.3 Lower Protein Needs (Protein): 88 Upper Protein Needs (Protein): 103 Dietitian Reviewed in Medical Record: Current diet, Curent medications, Intake & Output, Labs, Medical history Diet Order: 1800 ADA Oral Diet Intake Amount: Good 75-90% Objective Comments: PMH: anemia, bipolar, depression, HLD, HTN, hypothyroid, schizophrenia A1C 5.7, Glucose 130(03/24/18) Meds include: Glucophage, Theragran, Protonix, Trazodone, Lipitor, Synthroid Feeding - Current PO Supplement Current Supplement: Glucerna Shake Current Frequency of Supplement: Three times a day Current kCals Provided by Supplement: 220 Current Protein Provided by Supplement: 10 Assessment Assessment: Pt. follow-up for MDC poor po intake. Pt. po intake improved 50% or greater for meals. 03/24/18 GI progress note reviewed for recurring nausea and vomiting w/ "Gallbladder ultrasound revealed gallstones, negative HIDA scan". Continue Glucerna Shakes TID per MD. Labs reviewed. Wt is stable. Dietitian will follow as needed. Recommendations: 1. Continue Glucerna Shakes TID per MD 2. Dietitian will follow as needed
[2018-03-25 15:24] LABS: Calcium 8.9 mg/dL (8.5-10.1); Carbon Dioxide 29.4 meq/L (21.0-32.0)
--- NOTE | 2018-03-25 15:39 | P.PNGI ---
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 No nausea vomiting or reported abdominal pain <JulioSandee - Last Filed: 03/25/18 15:36> Physical Exam Vital signs: Vital Signs 03/24/18 15:56 Temperature 99.4 F Pulse Rate 87 Respiratory Rate 18 Blood Pressure 130/69 Pulse Oximetry 99 Intake & Output 03/24/18 03/25/18 03/25/18 18:59 06:59 18:59 Other: Date of Last Bowel Movement 03/16/18 <Sandee Kim - Last Filed: 03/25/18 15:36> Vital signs: Vital Signs 03/25/18 16:59 03/26/18 05:28 Temperature 98.4 F 97.6 F Pulse Rate 88 Respiratory Rate 18 Blood Pressure 135/85 Pulse Oximetry 100 96 Intake & Output 03/25/18 03/26/18 03/26/18 18:59 06:59 18:59 Other: Date of Last Bowel Movement 03/16/18 <Edmond Beth - Last Filed: 03/26/18 13:26> Results - Labs CBC & Chem 7: 03/24/18 10:10 03/25/18 14:30 Laboratory Results - last 24 hr 03/25/18 03/25/18 03/25/18 03:25 14:30 14:30 Sodium 139 Potassium 4.0 Chloride 105 Carbon Dioxide 29.4 Anion Gap 5 BUN 17 Creatinine 0.96 Estimated GFR 61 L Random Glucose 94 Calcium 8.9 D Urine Color Straw Urine Clarity Clear Urine pH 8.0 Ur Specific [place] 1.005 Urine Protein Negative Urine Glucose (UA) Negative Urine Ketones Negative Urine Occult Blood Negative Urine Nitrate Negative Urine Bilirubin Negative Urine Urobilinogen Less than 2 Ur Leukocyte Esterase Negative Urine WBC 2 Ur Squamous Epith Cells <1 Urine Mucus Few H Micro UA Comment Culture not ind Ur Microscopic Review Not Reportable Urine Culture Comments Culture not ind [place] 0.9 <JulioSandee - Last Filed: 03/25/18 15:36> - Labs CBC & Chem 7: 03/24/18 10:10 03/25/18 14:30 Laboratory Results - last 24 hr 03/24/18 03/25/18 03/25/18 13:35 14:30 14:30 Sodium 139 Potassium 4.0 Chloride 105 Carbon Dioxide 29.4 Anion Gap 5 BUN 17 Creatinine 0.96 Estimated GFR 61 L Random Glucose 94 Calcium 8.9 D Thiamine 171 [place] 0.9 <Edmond Beth - Last Filed: 03/26/18 13:26> Assessment and Plan (1) Nausea & vomiting Status: Acute Code(s): R11.2 - Nausea with vomiting, unspecified (2) Abdominal pain Status: Acute Code(s): R10.9 - Unspecified abdominal pain - Plan This patient is a 52-year-old female with past medical history significant for bipolar disorder, anemia, depression, hyperlipidemia, ischemic colitis, hypertension, hypothyroidism and schizophrenia. Patient currently admitted to psychiatric unit due to hyperactivity poor sleep, grandiose and euphoria. Our service has been consulted to evaluate patient for recurring nausea and vomiting. Staff reports patient vomited x1 this a.m. after breakfast. Positive Jones sign on exam. Gallbladder ultrasound revealed gallstones, negative HIDA scan. She denies any nausea at this time, denies diarrhea or constipation at present. Medical records show patient admits to regular use of cannabis and irregular use of alcohol. There is no noted significant family history documented. Nausea Abdominal pain Staff endorses nausea and vomiting onset 2 days ago. Staff reports patient vomited x1 this a.m. after breakfast. Positive Jones sign on exam. This is unlikely gastritis, patient has been on pantoprazole 20 mg p.o. twice daily for an extended amount of time; 02/06/2018 03/16/2018 gallbladder ultrasound Echogenic gallstone with no wall thickening or pericholecystic fluid. Mild pyelocaliectasis in the right kidney. 03/17/2018 HIDA scan Normal gallbladder visualization no evidence of biliary obstruction. Normal calculated ejection fraction of approximately 70%. 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 Beth and this note is written on his behalf - Attending Attestation Dr. Beth <Sandee Kim - Last Filed: 03/25/18 15:36> (1) Nausea & vomiting Status: Acute Code(s): R11.2 - Nausea with vomiting, unspecified (2) Abdominal pain Status: Acute Code(s): R10.9 - Unspecified abdominal pain - Attending Attestation The patient was seen and examined. I agree with the assessment and recommendations above. <Edmond Beth - Last Filed: 03/26/18 13:26>
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
--- NOTE | 2018-03-25 16:59 | P.PNIM ---
Subjective Interval history: Patient is seen in room. She is slowly rolling around on bed and mumbling to herself. Does not answer any questions other than to say "hi". Nursing denies any further episodes of emesis and says patient has had no complaints of nausea. Of note, nursing did hold multivitamin this morning. Physical Exam Vital signs: Last Vital Signs Temp 99.4 F 03/24/18 15:56 Pulse 87 03/24/18 15:56 Resp 18 03/24/18 15:56 BP 130/69 03/24/18 15:56 Pulse Ox 99 03/24/18 15:56 Intake & Output 03/23/18 03/24/18 03/25/18 03/26/18 06:59 06:59 06:59 06:59 Weight 80.2 kg Narrative: GENERAL: Well-nourished, well-developed adult female in no obvious distress. SKIN: Warm and dry. HEAD: Atraumatic. Normocephalic. CARDIOVASCULAR: Regular rate and rhythm. RESPIRATORY: No accessory muscle use. Clear to auscultation. Breath sounds equal bilaterally. GASTROINTESTINAL: Abdomen soft, non-tender, non-distended. Positive bowel sounds. MUSCULOSKELETAL: Extremities without clubbing, cyanosis, or edema. No obvious deformities. NEUROLOGICAL: Awake and alert. No obvious cranial nerve deficits. Motor grossly within normal limits. Normal speech. Results Labs CBC & Chem 7: 03/24/18 10:10 03/25/18 14:30 Assessment and Plan (1) Bipolar affective, manic, severe w/ psych: Code(s): F31.2 - Bipolar disorder, current episode manic severe with psychotic features Status: Acute (2) Cannabis abuse: Code(s): F12.10 - Cannabis abuse, uncomplicated Status: Acute Plan 52-year-old white female admitted for acute hyponatremia and acute shelley with past medical history of DVT, and diabetes mellitus type 2. Recurrent N/V 03/15 STAT reconsult for dark black stools and emesis of green bile x 2 after eating her own excrement. Workup revealed on gallbladder US +1.9cm gallstone but follow up HIDA neg Metformin, Iron and Miralax held. 03/20 reconsult for recurrent N/V x 3. Patient denied ingesting her own excrement. [place] to be possibly med related. 03/24 reconsult for N/V. +episode of emesis on Friday likely self induced but witnessed large nonbloody emesis after breakfast this morning. Patient has been chewing/eating sticks from outside. Patient has also eaten crayons recently. Lab work unremarkable except for mild anemia which is chronic. [place] level 0.7. UA pending. -given recurrence of symptoms will consult GI, appreciate assistance. -patient discouraged from eating nonfood substances -Zofran prn -continue on PPI 03/25 no longer having N/V. -Give multivitamin only immediately prior to meals. Do not give on empty stomach. PICA hx of DAREN patient eating her own excrement, crayons, sticks, etc. concern for possible vitamin deficiency, more likely behavioral -resume po iron supplementation -obtain iron studies, B12, folate, thiamine and zinc level -discourage patient from eating nonfood substances E coli and PSAE UTI 03/15 -completed course of Ceftin -03/24 repeat UA pending -negative Acute shelley/acute psychosis Altered mental status Likely related to psychosis and noncompliance in taking medications -with worsening symptoms, likely related to patient noncompliance and refusing to take p.o. medications extensive psych hx of schizophrenia and bipolar and long antipsychotic allergy list -management per psychiatric team Right lower extremity DVT Dependant bilateral lower extremity swelling, improved -LE US with noted nonocclusive thrombus within right proximal and distal femoral vein and profundus vein. -initially treated with sq Lovenox due to medication noncompliance and on Tegretol. -Patient now complaint with po medications. No longer on Tegretol. Re- evaluated by Hematology who transitioned patient to po Xarelto. Diabetes Mellitus Type2, controlled -Blood sugar controlled -continue on Metformin 500mg BID - on hold now 2/2 N/V. -HgbA1c 5.7 -Follow up with PCP in 3 months Hypotonic hyponatremia, resolved -Random urine sodium wnl, urine osmolality low. F/u lithium level. Possible medication induced SIADH vs GI losses -sodium tablets have been discontinued Iron deficiency anemia/Normocytic Anemia -Hematology has started patient on iron supplementation. -Stool for occult blood negative x 2 -Continue iron supplements History of/hyperlipidemia/hypothyroidism - continue home medications, atorvastatin, Synthroid - TSH 0.773 - Lipid panel stable DVT prop Xarelto Progress Note: Quality VTE Deep Vein Thrombosis/Pulmonary Embolism Present on Admission: No
[2018-03-25] MEDS: traZODone 100 MG Tablet PO SCH (20:35)
[2018-03-26] MEDS: Levothyroxine 75 MCG Tablet PO SCH (05:36)
[2018-03-26] MEDS: Rivaroxaban 20 MG Tablet PO SCH (08:31)
[2018-03-26] MEDS: Pantoprazole Sodium 20 MG DR Tablet PO SCH ×2 (08:32→20:14)
[2018-03-26] MEDS: Senna/Docusate Sodium 8.6/50 MG Tablet PO SCH (08:32)
[2018-03-26] MEDS: Ferrous Sulfate 325 MG Tablet PO SCH ×2 (08:32→20:14)
[2018-03-26] MEDS: ChlorproMAZINE 50 MG Tablet PO SCH ×2 (08:32→17:18)
--- NOTE | 2018-03-26 13:16 | P.PNPSY ---
Subjective Chief Complaint: Bipolar I Disorder - current Manic Episode Remarks: Patient seen today sitting in day room with legs over the chair. Patient seen with nurse Reid, chart reviewed. It appears earlier today patient again voided urine on the floor and also fecal material on the floor. Then spit in it. When confronted with this by me this afternoon she just smiled A's silly childlike vacuous smile showing no response to my questions no acknowledgment of responsibility for her behaviors. [place] level drawn this morning is 0.9, I have consolidative the Thorazine orders and to 200 mg 3 times daily. We continue to await word from state hospital placement Review of Systems All other systems reviewed negative except as stated in HPI Mental Status Examination Appearance: Appropriate, Disheveled (Slightly) Consciousness: Alert, Highly distractible (Lessening) Orientation: Person, Place (at least) Motor Activity: Other (No abnormal motor movements noted) Speech: Hesitant, Slow Language: Other (Today speech slow and hesitant) Fund of Knowledge: Poor Attention and Concentration: Inadequate Memory: Unremarkable Mood: Other (Scaly superficial and childlike) Affect: Other (Decreased range and intensity) Thought Process & Associations: Loose associations, Tangential Thought Content: Bizarre thinking, Delusional Hallucination Type: None Delusion Type: Bizarre, Other (Grandiose) Suicidal Ideation: No Suicidal Plan: No Suicidal Intention: No Homicidal Ideation: No Homicidal Plan: No Homicidal Intention: No Insight: Poor Judgment: Poor Assessment and Plan - Assessment (1) Bipolar affective, manic, severe w/ psych Code(s): F31.2 - Bipolar disorder, current episode manic severe with psychotic features Status: Acute (2) Cannabis abuse Code(s): F12.10 - Cannabis abuse, uncomplicated Status: Acute - Plan Plan: Patient remained psychotic and delusional today she voided on the floor, defecated on the floor and then spit see medication adjustments above continue to await word from state hospital placement Justification for Continued Inpatient Stay: At this time patient with decompensated placed in a lower level of care, continue to await word from state hospital Discharge Planning: Continue to await word from state hospital Request Healthcare Surrogate/Guardian Advocate?: Yes
--- NOTE | 2018-03-26 18:12 | P.PNIM ---
Subjective Interval history: Patient seen in room. She refuses to answer my questions and just smiles and laughs. According to nursing she both urinated and defecated on the floor today and then spit in it. Physical Exam Vital signs: Last Vital Signs Temp 97.6 F 03/26/18 05:28 Pulse 88 03/25/18 16:59 Resp 18 03/25/18 16:59 BP 135/85 03/25/18 16:59 Pulse Ox 96 03/26/18 05:28 Narrative: GENERAL: Well-nourished, well-developed adult female noted acute distress SKIN: Warm and dry. CARDIOVASCULAR: Regular rate and rhythm. RESPIRATORY: No accessory muscle use. Clear to auscultation. Breath sounds equal bilaterally. GASTROINTESTINAL: Abdomen soft, nondistended. No tenderness with palpation. NEUROLOGICAL: Awake and alert. Motor grossly within normal limits. Laughing at everything said. Results Labs CBC & Chem 7: 03/24/18 10:10 03/25/18 14:30 Assessment and Plan (1) Nausea & vomiting: Code(s): R11.2 - Nausea with vomiting, unspecified Status: Acute Plan 52-year-old white female admitted for acute hyponatremia and acute shelley with past medical history of DVT, and diabetes mellitus type 2. Recurrent N/V 03/15 STAT reconsult for dark black stools and emesis of green bile x 2 after eating her own excrement. Workup revealed on gallbladder US +1.9cm gallstone but follow up HIDA neg Metformin, Iron and Miralax held. 03/20 reconsult for recurrent N/V x 3. Patient denied ingesting her own excrement. [place] to be possibly med related. 03/24 reconsult for N/V. +episode of emesis on Friday likely self induced but witnessed large nonbloody emesis after breakfast this morning. Patient has been chewing/eating sticks from outside. Patient has also eaten crayons recently. Lab work unremarkable except for mild anemia which is chronic. [place] level 0.7. UA pending. -given recurrence of symptoms will consult GI, appreciate assistance. -patient discouraged from eating nonfood substances -Zofran prn -continue on PPI 03/25 & 03/26 no longer having N/V. -Give multivitamin only immediately prior to meals. Do not give on empty stomach. PICA hx of DAREN patient eating her own excrement, crayons, sticks, etc. concern for possible vitamin deficiency, more likely behavioral -resume po iron supplementation -obtain iron studies, B12, folate, thiamine and zinc level -discourage patient from eating nonfood substances E coli and PSAE UTI 03/15 -completed course of Ceftin -03/24 repeat UA pending -negative Acute shelley/acute psychosis Altered mental status Likely related to psychosis and noncompliance in taking medications -with worsening symptoms, likely related to patient noncompliance and refusing to take p.o. medications extensive psych hx of schizophrenia and bipolar and long antipsychotic allergy list -management per psychiatric team Right lower extremity DVT Dependant bilateral lower extremity swelling, improved -LE US with noted nonocclusive thrombus within right proximal and distal femoral vein and profundus vein. -initially treated with sq Lovenox due to medication noncompliance and on Tegretol. -Patient now complaint with po medications. No longer on Tegretol. Re- evaluated by Hematology who transitioned patient to po Xarelto. Diabetes Mellitus Type2, controlled -Blood sugar controlled -continue on Metformin 500mg BID - on hold now 2/2 N/V. -HgbA1c 5.7 -Follow up with PCP in 3 months Hypotonic hyponatremia, resolved -Random urine sodium wnl, urine osmolality low. F/u lithium level. Possible medication induced SIADH vs GI losses -sodium tablets have been discontinued Iron deficiency anemia/Normocytic Anemia -Hematology has started patient on iron supplementation. -Stool for occult blood negative x 2 -Continue iron supplements History of/hyperlipidemia/hypothyroidism - continue home medications, atorvastatin, Synthroid - TSH 0.773 - Lipid panel stable DVT prop Xarelto Patient appears to be medically stable at this time. Hospital service will sign off. Please reconsult if needed Progress Note: Quality VTE Deep Vein Thrombosis/Pulmonary Embolism Present on Admission: No _ (1) Nausea & vomiting Qualifiers: Vomiting type: Vomiting Intractability:
[2018-03-26] MEDS: traZODone 100 MG Tablet PO SCH (20:14)
[2018-03-26 23:52] LABS: Zinc 75 mcg/dL (60-130)
[2018-03-27] MEDS: Acetaminophen 325 MG Tablet PO PRN ×2 (04:08→14:48)
[2018-03-27] MEDS: Levothyroxine 75 MCG Tablet PO SCH (05:30)
[2018-03-27] MEDS: Pantoprazole Sodium 20 MG DR Tablet PO SCH ×2 (08:04→21:55)
[2018-03-27] MEDS: Rivaroxaban 20 MG Tablet PO SCH (08:04)
[2018-03-27] MEDS: Ferrous Sulfate 325 MG Tablet PO SCH ×2 (08:05→21:55)
[2018-03-27] MEDS: Senna/Docusate Sodium 8.6/50 MG Tablet PO SCH (08:05)
[2018-03-27] MEDS: ChlorproMAZINE 50 MG Tablet PO SCH ×3 (08:05→18:07)
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
[2018-03-27] MEDS: traZODone 100 MG Tablet PO SCH (21:55)
[2018-03-28] MEDS: Levothyroxine 75 MCG Tablet PO SCH (06:14)
[2018-03-28] MEDS: Ferrous Sulfate 325 MG Tablet PO SCH ×2 (08:37→20:15)
[2018-03-28] MEDS: Pantoprazole Sodium 20 MG DR Tablet PO SCH ×2 (08:37→20:14)
[2018-03-28] MEDS: Senna/Docusate Sodium 8.6/50 MG Tablet PO SCH (08:37)
[2018-03-28] MEDS: ChlorproMAZINE 50 MG Tablet PO SCH ×3 (08:37→18:50)
[2018-03-28] MEDS: Rivaroxaban 20 MG Tablet PO SCH (08:37)
--- NOTE | 2018-03-28 14:36 | P.PNPSY ---
Subjective Chief Complaint: Bipolar I Disorder - current Manic Episode Remarks: Patient seen for follow-up, chart reviewed, patient discussed with nursing staff ; we reviewed the patient's mood, thoughts, and behaviors from overnight and this morning. Nursing reports that the patient slept 6 hours overnight. She was appropriate and calm within the milieu this morning and allowed to go to recreational group where she also was calm and quiet and cooperative. The patient had no complaints for provider. Mental Status Examination Appearance: Appropriate, Disheveled (Slightly) Consciousness: Alert, Highly distractible (Lessening) Orientation: Person, Place (at least) Motor Activity: Other (No abnormal motor movements noted) Speech: Hesitant, Slow Language: Other (Today speech slow and hesitant) Fund of Knowledge: Poor Attention and Concentration: Inadequate Memory: Unremarkable Mood: Other (Scaly superficial and childlike) Affect: Other (Decreased range and intensity) Thought Process & Associations: Loose associations, Tangential Thought Content: Bizarre thinking, Delusional Hallucination Type: None Delusion Type: Bizarre, Other (Grandiose) Suicidal Ideation: No Suicidal Plan: No Suicidal Intention: No Homicidal Ideation: No Homicidal Plan: No Homicidal Intention: No Insight: Poor Judgment: Poor Assessment and Plan - Assessment (1) Bipolar affective, manic, severe w/ psych Code(s): F31.2 - Bipolar disorder, current episode manic severe with psychotic features Status: Acute (2) Cannabis abuse Code(s): F12.10 - Cannabis abuse, uncomplicated Status: Acute - Plan Plan: Patient remains psychotic manic and tense and appropriate behavior sexually, and an appropriate urinary and fecal behaviors Justification for Continued Inpatient Stay: Patient remains an elevated risk for self-harm by self neglect and harm to others through sexual aggression and therefore will require further inpatient stabilization and preparation of a safe discharge plan. Moving patient to a less restrictive environment at this time may result in decompensation. Request Healthcare Surrogate/Guardian Advocate?: Yes
[2018-03-28] MEDS: traZODone 100 MG Tablet PO SCH (20:14)
[2018-03-29] MEDS: Levothyroxine 75 MCG Tablet PO SCH (05:51)
[2018-03-29] MEDS: Rivaroxaban 20 MG Tablet PO SCH (08:56)
[2018-03-29] MEDS: Ferrous Sulfate 325 MG Tablet PO SCH ×2 (08:56→20:18)
[2018-03-29] MEDS: Pantoprazole Sodium 20 MG DR Tablet PO SCH ×2 (08:56→20:17)
[2018-03-29] MEDS: Senna/Docusate Sodium 8.6/50 MG Tablet PO SCH (08:56)
[2018-03-29] MEDS: ChlorproMAZINE 50 MG Tablet PO SCH ×3 (08:56→18:20)
--- NOTE | 2018-03-29 11:54 | P.PNPSY ---
Subjective Chief Complaint: Bipolar I Disorder - current Manic Episode Remarks: Reviewed electronic medical record. Rounded with FRED Cardozo. Patient in common area eating lunch. Nursing report that she has been cooperative, less intrusive and participating in activities on the unit. Sleeping 6-7 hours per night. Nursing reports approximately 500cc of bile colored emesis this morning. Patient is on xarelto. Will order labs and a hospitalist consult. Continues to be mildly manic. Review of Systems All other systems reviewed negative except as stated in HPI Mental Status Examination Appearance: Appropriate, Disheveled (Slightly) Consciousness: Alert, Highly distractible (Lessening) Orientation: Person, Place (at least) Motor Activity: Other (No abnormal motor movements noted) Speech: Hesitant, Slow Language: Other (Today speech slow and hesitant) Fund of Knowledge: Poor Attention and Concentration: Inadequate Memory: Unremarkable Mood: Other (Scaly superficial and childlike) Affect: Other (Decreased range and intensity) Thought Process & Associations: Loose associations, Tangential Thought Content: Bizarre thinking, Delusional Hallucination Type: None Delusion Type: Bizarre, Other (Grandiose) Suicidal Ideation: No Suicidal Plan: No Suicidal Intention: No Homicidal Ideation: No Homicidal Plan: No Homicidal Intention: No Insight: Poor Judgment: Poor Assessment and Plan - Assessment (1) Bipolar affective, manic, severe w/ psych Code(s): F31.2 - Bipolar disorder, current episode manic severe with psychotic features Status: Acute - Plan Plan: Continue current treatment plan. Justification for Continued Inpatient Stay: Moving patient to a less restrictive environment may result in her decompensation. Request Healthcare Surrogate/Guardian Advocate?: Yes
[2018-03-29 18:49] LABS: Baso % (Auto) 0.7 % (0.0-2.0); Eos # (Auto) 0.4 th/mm3 (0.0-0.4); Eos % (Auto) 8.3 % (0.0-4.0); Hematocrit 29.1 % (35.0-46.0); Hemoglobin 9.8 gm/dL (11.6-15.3); Lymph # (Auto) 1.3 th/mm3 (1.0-4.8); Lymph % (Auto) 24.6 % (9.0-44.0); Mean Corpuscular HGB Conc 33.6 % (32.0-36.0); Mean Corpuscular Hemoglobin 31.1 pg (27.0-34.0); Mean Corpuscular Volume 92.8 fL (80.0-100.0); Mean Platelet Volume 8.5 fL (7.0-11.0); Mono # (Auto) 0.5 th/mm3 (0.0-0.9); Mono % (Auto) 9.2 % (0.0-8.0); Neut % (Auto) 57.2 % (16.0-70.0); Platelet Count 198 th/mm3 (150-450); Red Blood Count 3.13 mil/mm3 (4.00-5.30); Red Cell Distribution Width 16.3 % (11.6-17.2); White Blood Count 5.3 th/mm3 (4.0-11.0)
[2018-03-29 19:08] LABS: Alanine Aminotransferase 35 U/L (10-53)
[2018-03-29 19:11] LABS: Alkaline Phosphatase 95 U/L (45-117); Total Protein 6.1 g/dL (6.4-8.2)
[2018-03-29 19:21] LABS: Albumin 3.3 g/dL (3.4-5.0); Anion Gap 8 meq/L (5-15); Aspartate Aminotransferase 19 U/L (15-37); Blood Urea Nitrogen 18 mg/dL (7-18); Calcium 9.3 mg/dL (8.5-10.1); Carbon Dioxide 25.7 meq/L (21.0-32.0); Chloride 105 meq/L (98-107); Glomerular Filtration Rate 57 mL/min (>89); Glucose,Random 124 mg/dL (74-106); Sodium 139 meq/L (136-145)
[2018-03-29] MEDS: traZODone 100 MG Tablet PO SCH (20:17)
[2018-03-30] MEDS: Levothyroxine 75 MCG Tablet PO SCH (06:22)
[2018-03-30] MEDS: ChlorproMAZINE 50 MG Tablet PO SCH ×3 (08:16→17:39)
[2018-03-30] MEDS: Ferrous Sulfate 325 MG Tablet PO SCH ×2 (08:16→21:09)
[2018-03-30] MEDS: Rivaroxaban 20 MG Tablet PO SCH (08:17)
[2018-03-30] MEDS: Pantoprazole Sodium 20 MG DR Tablet PO SCH ×2 (08:17→21:08)
[2018-03-30] MEDS: Senna/Docusate Sodium 8.6/50 MG Tablet PO SCH (08:17)
[2018-03-30] MEDS: Acetaminophen 325 MG Tablet PO PRN (10:29)
--- NOTE | 2018-03-30 11:34 | P.PNPSY ---
Subjective Chief Complaint: Bipolar I Disorder - current Manic Episode Remarks: Patient seen in day room with floor staff, chart reviewed, patient compliant medications. Per staff patient had a fairly good day yesterday she did not disrobe, she did not urinate or defecate on the floor. She has not been quite as intrusive. With me patient remains silly childlike and somewhat cynical. Though not as intrusive with me either. Will increase Clozaril to 25 mg twice daily Review of Systems All other systems reviewed negative except as stated in HPI Mental Status Examination Appearance: Appropriate Consciousness: Alert, Highly distractible (Lessening) Orientation: Person, Place (at least) Motor Activity: Other (No abnormal motor movements noted) Speech: Hesitant, Slow Language: Other (Today speech slow and hesitant) Fund of Knowledge: Poor Attention and Concentration: Inadequate Memory: Unremarkable Mood: Other (Scaly superficial and childlike) Affect: Other (Decreased range and intensity) Thought Process & Associations: Loose associations, Tangential Thought Content: Bizarre thinking, Delusional Hallucination Type: None Delusion Type: Bizarre, Other (Grandiose) Suicidal Ideation: No Suicidal Plan: No Suicidal Intention: No Homicidal Ideation: No Homicidal Plan: No Homicidal Intention: No Insight: Poor Judgment: Poor Assessment and Plan - Assessment (1) Bipolar affective, manic, severe w/ psych Code(s): F31.2 - Bipolar disorder, current episode manic severe with psychotic features Status: Acute (2) Cannabis abuse Code(s): F12.10 - Cannabis abuse, uncomplicated Status: Acute - Plan Plan: Patient not quite as intrusive and tense or hypersexual today. Has been compliant with medications. Continues vague about any auditory hallucinations see medication adjustment above Justification for Continued Inpatient Stay: At this time patient with decompensated placed in a lower level of care Discharge Planning: Continue to await word from state [facility] placement Request Healthcare Surrogate/Guardian Advocate?: Yes
--- NOTE | 2018-03-30 14:04 | P.TTN ---
- Patient Problems Problems: 1. Discharge planning 2. Medication compliance 3. Knowledge deficit 4. Lack of coping skills - Progress Toward Goals Provider Present: Dr. Marika Guardado (Dr. Guardado is titrating medication Clozaril , patient remains for further stabilization.) Provider Input: 03/25/18: Patient is on the [facility] waiting list. Patient was denied by [facility] to receive ECT treatments. Sent ECT packet to [facility] in [facility]. 03/16/2018; per psychiatrist, patient medication contiues to require adjustment, due to inappropriate sexual behavior. 2017 Patient still meets criteria to remain on the unit. Yesterday she wanted to bolt through the locked doors to go after a male. She is very sexually inappropriate. 03/04/18; patient is not stable at this point, medication is still be adjust. 03/02/2018; patient is refusing medication and will be given IM; patient is delusional and responding to internal stimuli. 02/23: Pt, over this weekend, has refused all medications. Pt is currently 1:1 per her instability. Pt currently has DVT. Options include pt to accept medication for recommended tx, ECT via court order, [facility]. Isaac, counselor, to follow up with [facility] application and with pt to return to court [place] for court to rule on ECT as option. 02/18/18: Pt is being titrated on Lorazepam and Tegretal with subcutaneous Lovenox an impediment to pt being placed in [facility]. Pt does not currently meet SNF placement, OTR consults with Therapy Dept to confirm pt not meeting SNF status. to consult with hemotologist re: options for Lovenox (ie: P.O. medication) to increase dc options. 02/16/18: pt continuing medication; patient is continuing to slowly stabalize, continue medication mangement. mattress spring encaser is continuing to work on locating safe placement for [facility]DC - at this time reviewing [facility]. 02/11/18: pt currently on tegretal 350 BID; pt is slowly stabilizing, further medication adjustments limited relative to pt's elevated sodium issues. Pt's sister has indicated she would like pt to remain at [facility] until pt is stabilized so pt can return to [facility]. Pt continues to meet in-pt criteria. 02/09/18: Pt continues to be manic, hyperverbal, intrusive and needs to remain for further stabilization. Tegrertal being titrated. Collateral from pt's sister is that pt continues to exhibit shelley. 01/28: Adjusting and increasing pt's medications today, pt is homeless, case management is working on placement to [facility], watch water intake due to decrease in sodium Nurse(s) Present: RN Nurse Input: 03/25/18: Med Compliant, Inappropriate with staff, kissing male and female staff members. 03/16/2018;per RN patient requires ongoing redirection, very inappropriate behavior, playing with her feces, very sexual, unable to follow verable ques. 03/09/2018 Patient still requires 1:1 touch. Intrusive and attempts to touch others. 03/04/2018; patient is responding to internal stimuli, requires 1:1, still refuse medication, and very nonsensical with thoughts. 03/02/2018; patient is responding to internal stimuli, she is difficult to redirect, with nonsensical thoughts. 02/16/18: pt continuing hyperverbal, pt continuing to socialize, rapid pressure speech and is continuing to be medication compliant. 01/28: Pt remains manic, hyperverbal, religiously preoccupied, rapid pressured speech, med compliant Psychiatric Counselors Present: Isaac Lentz Jr., [facility] (Counselor faxed ECT packet to [facility] in [place], the referral is being evaluated and the facility will respond to our referral on Sunday, April 01, 2018. Backup plan is to have the patient sent to the [facility].), Steffanie Liz, [facility], Other Psychiatric Therapist Input: 03/25/18: Patient denied at [facility] and denied at [facility] in [place] regarding ECT.Counselor faxed ECT packet to [facility] in [facility] on Saturday March 24, 2018. As a back-up plan patient can returnto [facility] per Alice at [facility]. 7000 admission form for [facility] has been completed patient is officially on the wait list. 03/16/2018; counselor will continue to move towards ECT plan with treating psychiatrist, state package has been submitted. 03/09/2018 Still looking for ECT placement and State should have already been implemented. 03/04/2018; dc placement remain the same, dc to [facility] when stable if appropriate if not to a different [facility]. 03/02/2018; patient placement is still in review, to determine if returning to [facility] is appropriate verse a higher level of care. 02/16/18: pt is improving slowly, mattress spring encaser is to work on finding different placement, at this time reviewing [facility], as of Friday02/13/18 pt was still improving per provider. 02/09/18: Pt plof was [facility], current plan is for pt to return when stabilized. Pt currrently meets criteria for in-pt status. Group Spec/RT/OT/BARRERA Present: Litzy Santacruz, GPS, Rasta Archibald, OT, Stanislaw Lin, BARRERA (Patient does not attend groups because she is not appropriate at this time.) Group Spec/RT/OT/BARRERA Input: 03/25/18: Patient has a difficult time engaging in the group activities. Pt needs contant redirection but is easily redirected by RT/OT staff. 03/16/2018; per OT patient is too inappropriate for most group, and unable to participate. 03/09/2018 Unable to participate in any group activities. 03/04/2018 patient is unable to participate with groups. 2017; patient is unable to participate with groups or activities at this time. 02/23: Pt continues to participate in most groups, she is able to be appropriate but continues to act intrusively, requiring frequent redirection. 02/18/18: Pt ontinues to participate in groups, patient continues looking forward to socialization and participation but she continues to moderately intrusive and hyperverbal. 02/16/18: pt continues to participate in groups, patient continues looking forward to socialization and participation. 02/11/18: Pt attends most groups lately but she continues to moderately intrusive and hyperverbal, she is consistently in other people's business. Pt is redirectable with moderate effort, she is able to exercise more self-control though still needs external cuing to do so. 02/09/18: Pt attends select groups, she is intrusive, hyperverbal, needs repeated, nearly constant re-direction. 01/28: Pt attends select groups with 1:1 and constant redirection to remain quiet, focused, seated. Manic, intrusive, hyperverbal, increase in participation noted , pt is able to complete simple tasks Clinical Coordinator: Tasha Mathews [facility] Additional Input: 02/23: Isaac, counselor, [facility] and with pt to return to court [place] for court to rule on ECT as option. 02/11/18: Pt's sister has indicated she would like pt to remain at [facility] until pt is stabilized so pt can return to [facility]. Pt continues to meet in-pt criteria. 02/09/18: Pt plof was [facility], current plan is for pt to return when stabilized. Pt currrently meets criteria for in-pt status. - Discharge Plan Other (Further evaluation for FDC placement - at this time reviewing opportunity for [facility]) 02/18/18: Pt does not currently meet SNF placement, OTR consults with Therapy Dept to confirm pt not meeting SNF status. MD to consult with hemotologist re: options for Lovenox (ie: P.O. medication) to increase dc options. 02/11/18: Pt's sister has indicated she would like pt to remain at [facility] until pt is stabilized so pt can return to [facility]. Pt continues to meet in-pt criteria. 01/28: Pt discharge planning in progress with placement to [facility] 03/25/18: Pt is currently on the [facility] waiting list. As a backup plan the patient can return to [facility] per Alice at [facility]. - Documentation Scribe: Litzy Santacruz Teaching Recipient: Patient
[2018-03-30 15:16] LABS: Baso # (Auto) 0.1 th/mm3 (0.0-0.2); Baso % (Auto) 1.2 % (0.0-2.0); Eos # (Auto) 0.4 th/mm3 (0.0-0.4); Hematocrit 26.8 % (35.0-46.0); Hemoglobin 9.4 gm/dL (11.6-15.3); Lymph # (Auto) 1.5 th/mm3 (1.0-4.8); Lymph % (Auto) 27.3 % (9.0-44.0); Mean Corpuscular HGB Conc 35.3 % (32.0-36.0); Mean Corpuscular Hemoglobin 31.5 pg (27.0-34.0); Mean Corpuscular Volume 89.3 fL (80.0-100.0); Mean Platelet Volume 8.2 fL (7.0-11.0); Mono # (Auto) 0.6 th/mm3 (0.0-0.9); Mono % (Auto) 10.9 % (0.0-8.0); Neut # (Auto) 2.8 th/mm3 (1.8-7.7); Neut % (Auto) 52.6 % (16.0-70.0); Platelet Count 243 th/mm3 (150-450); Red Cell Distribution Width 15.4 % (11.6-17.2); White Blood Count 5.3 th/mm3 (4.0-11.0)
[2018-03-30] MEDS: traZODone 100 MG Tablet PO SCH (21:09)
[2018-03-31] MEDS: Levothyroxine 75 MCG Tablet PO SCH (06:08)
[2018-03-31] MEDS: Rivaroxaban 20 MG Tablet PO SCH (08:44)
[2018-03-31] MEDS: ChlorproMAZINE 50 MG Tablet PO SCH (08:45)
[2018-03-31] MEDS: Pantoprazole Sodium 20 MG DR Tablet PO SCH ×2 (08:45→20:47)
[2018-03-31] MEDS: Ferrous Sulfate 325 MG Tablet PO SCH ×2 (08:45→20:47)
[2018-03-31] MEDS: Senna/Docusate Sodium 8.6/50 MG Tablet PO SCH (08:45)
--- NOTE | 2018-03-31 09:21 | P.PNPSY ---
Subjective Chief Complaint: Bipolar I Disorder - current Manic Episode Remarks: Patient is seen in her room with one-to-one sitter, chart reviewed, patient compliant medication. Patient showing slight improvement in her affect it is somewhat softer. She is somewhat less intrusive though she continues to childlike irritating and intrusive. It appears she has Bowel control the past 24 hours. She is also To close on past 24 hours. For now continue treatment she continues like this consider discontinuing one-to-one tomorrow Review of Systems All other systems reviewed negative except as stated in HPI Mental Status Examination Appearance: Appropriate Consciousness: Alert, Highly distractible (Lessening) Orientation: Person, Place (at least) Motor Activity: Other (No abnormal motor movements noted) Speech: Hesitant, Slow Language: Other (Today speech slow and hesitant) Fund of Knowledge: Poor Attention and Concentration: Inadequate Memory: Unremarkable Mood: Other (Scaly superficial and childlike) Affect: Other (Decreased range and intensity) Thought Process & Associations: Loose associations, Tangential Thought Content: Bizarre thinking, Delusional Hallucination Type: None Delusion Type: Bizarre, Other (Grandiose) Suicidal Ideation: No Suicidal Plan: No Suicidal Intention: No Homicidal Ideation: No Homicidal Plan: No Homicidal Intention: No Insight: Poor Judgment: Poor Assessment and Plan - Assessment (1) Bipolar affective, manic, severe w/ psych Code(s): F31.2 - Bipolar disorder, current episode manic severe with psychotic features Status: Acute (2) Cannabis abuse Code(s): F12.10 - Cannabis abuse, uncomplicated Status: Acute - Plan Plan: Patient remains psychotic with manic flavor, poor insight, though compliant medication Justification for Continued Inpatient Stay: At this time patient with decompensated placed in a lower level of care. We will continue to await word from state hospital referral Discharge Planning: Continue to await word from state hospital referral Request Healthcare Surrogate/Guardian Advocate?: Yes
[2018-03-31] MEDS: traZODone 100 MG Tablet PO SCH (20:46)
[2018-04-01] MEDS: Acetaminophen 325 MG Tablet PO PRN ×2 (03:48→13:00)
[2018-04-01] MEDS: Pantoprazole Sodium 20 MG DR Tablet PO SCH ×2 (08:06→20:10)
[2018-04-01] MEDS: ChlorproMAZINE 50 MG Tablet PO SCH ×3 (08:06→17:57)
[2018-04-01] MEDS: Senna/Docusate Sodium 8.6/50 MG Tablet PO SCH (08:06)
[2018-04-01] MEDS: Rivaroxaban 20 MG Tablet PO SCH (08:07)
[2018-04-01] MEDS: Ferrous Sulfate 325 MG Tablet PO SCH ×2 (08:07→20:10)
[2018-04-01] MEDS: Levothyroxine 75 MCG Tablet PO SCH (08:07)
--- NOTE | 2018-04-01 10:09 | P.PNPSY ---
Subjective Chief Complaint: Bipolar I Disorder - current Manic Episode Remarks: Patient is seen in her room with nurse Chinyere, chart reviewed, patient compliant medication. Patient showing decrease in her intensity and her intrusiveness though she continues with intense eye contact somewhat superficial somewhat T German. Though she denies voices today denies suicidality. She superficially appears to be calmer and more focused though she asked me today if I thought she was . Then after 1 hours finishing the session she said "I love you ". Thus while there appears to be some calming of her shelley and her intensity there is still some sexually oriented and appropriate behaviors. She also continues to complain of epigastric pain nausea and occasional emesis she says this occurred also after the of her son. We will check a C CBC with differential and his CMP tomorrow morning. We will discontinue the one-to-one placed her on close observation for it improves, and increase her Clozaril to 50 mg twice daily Review of Systems Some vague complaints of nausea and abdominal pain we will recheck labs tomorrow Mental Status Examination Appearance: Appropriate Consciousness: Alert, Highly distractible (Lessening) Orientation: Person, Place (at least) Motor Activity: Other (No abnormal motor movements noted) Speech: Slow Language: Adequate Fund of Knowledge: Poor Attention and Concentration: Inadequate Memory: Unremarkable Mood: Other (Scaly superficial and childlike) Affect: Other (Decreased range and intensity) Thought Process & Associations: Loose associations, Tangential Thought Content: Bizarre thinking, Delusional Hallucination Type: None Delusion Type: Bizarre, Other (Grandiose) Suicidal Ideation: No Suicidal Plan: No Suicidal Intention: No Homicidal Ideation: No Homicidal Plan: No Homicidal Intention: No Insight: Poor Judgment: Poor Assessment and Plan - Assessment (1) Bipolar affective, manic, severe w/ psych Code(s): F31.2 - Bipolar disorder, current episode manic severe with psychotic features Status: Acute (2) Cannabis abuse Code(s): F12.10 - Cannabis abuse, uncomplicated Status: Acute - Plan Plan: Patient's shelley psychosis grandiosity is softening, this still remains some intrusiveness and inappropriateness and sexually inappropriate comments see medication adjustments above and labs reported above Justification for Continued Inpatient Stay: At this time patient with decompensated placed in a lower level of care Discharge Planning: To be determined patient still awaiting word from state hospital referral though she states she does have some place to stay in the community Request Healthcare Surrogate/Guardian Advocate?: Yes
[2018-04-01] MEDS: Aluminum/Magnesium/Simethacone Susp 30 ML UDC PO PRN (16:28)
[2018-04-01] MEDS: traZODone 100 MG Tablet PO SCH (20:09)
[2018-04-02] MEDS: Acetaminophen 325 MG Tablet PO PRN (03:03)
[2018-04-02] MEDS: Levothyroxine 75 MCG Tablet PO SCH (06:11)
[2018-04-02 06:29] LABS: Baso % (Auto) 0.7 % (0.0-2.0); Eos # (Auto) 0.5 th/mm3 (0.0-0.4); Eos % (Auto) 8.8 % (0.0-4.0); Hematocrit 31.1 % (35.0-46.0); Hemoglobin 10.2 gm/dL (11.6-15.3); Lymph # (Auto) 1.5 th/mm3 (1.0-4.8); Lymph % (Auto) 27.1 % (9.0-44.0); Mean Corpuscular HGB Conc 32.7 % (32.0-36.0); Mean Corpuscular Hemoglobin 29.9 pg (27.0-34.0); Mean Corpuscular Volume 91.4 fL (80.0-100.0); Mean Platelet Volume 7.9 fL (7.0-11.0); Mono # (Auto) 0.6 th/mm3 (0.0-0.9); Mono % (Auto) 10.4 % (0.0-8.0); Platelet Count 264 th/mm3 (150-450); Red Cell Distribution Width 16.4 % (11.6-17.2); White Blood Count 5.6 th/mm3 (4.0-11.0)
[2018-04-02 06:58] LABS: Albumin 3.3 g/dL (3.4-5.0); Anion Gap 6 meq/L (5-15); Aspartate Aminotransferase 14 U/L (15-37); Blood Urea Nitrogen 24 mg/dL (7-18); Calcium 9.3 mg/dL (8.5-10.1); Carbon Dioxide 28.4 meq/L (21.0-32.0); Chloride 110 meq/L (98-107); Glomerular Filtration Rate 65 mL/min (>89); Glucose,Random 103 mg/dL (74-106); Potassium 4.2 meq/L (3.5-5.1); Sodium 144 meq/L (136-145)
[2018-04-02 07:02] LABS: Alanine Aminotransferase 25 U/L (10-53); Alkaline Phosphatase 97 U/L (45-117)
[2018-04-02] MEDS: Senna/Docusate Sodium 8.6/50 MG Tablet PO SCH (08:09)
[2018-04-02] MEDS: ChlorproMAZINE 50 MG Tablet PO SCH ×3 (08:10→17:45)
[2018-04-02] MEDS: Ferrous Sulfate 325 MG Tablet PO SCH ×2 (08:10→20:15)
[2018-04-02] MEDS: Rivaroxaban 20 MG Tablet PO SCH (08:11)
[2018-04-02] MEDS: Pantoprazole Sodium 20 MG DR Tablet PO SCH ×2 (08:11→20:15)
--- NOTE | 2018-04-02 10:47 | P.PNPSY ---
Subjective Chief Complaint: Bipolar I Disorder - current Manic Episode Remarks: Patient is seen today in day room with floor staff, chart reviewed, patient compliant medication. Patient today is calm pleasant with a marked decrease in her range and intensity of her affect, also less intense eye contact. Responses are calmer less intrusive less sexual in nature though she did whispered to me again today "I love you". Overall she is showing some improvement. Staff states that since coming off the one-to-one observation continues calm and appropriate she has not been disrobing or voiding or defecating them properly. For now continue treatment Review of Systems All other systems reviewed negative except as stated in HPI Mental Status Examination Appearance: Appropriate Consciousness: Alert, Highly distractible (More focused today) Orientation: Person, Place (at least), Date/Time Motor Activity: Other (No abnormal motor movements noted) Speech: Slow (Improving) Language: Adequate Fund of Knowledge: Poor (Improving) Attention and Concentration: Adequate (Fair) Memory: Unremarkable Mood: Other (Euthymic to somewhat restricted) Affect: Other (Decreased range and intensity) Thought Process & Associations: Loose associations, Tangential Thought Content: Bizarre thinking, Delusional Hallucination Type: None Delusion Type: Bizarre (Improved), Other (Grandiose) Suicidal Ideation: No Suicidal Plan: No Suicidal Intention: No Homicidal Ideation: No Homicidal Plan: No Homicidal Intention: No Insight: Poor Judgment: Poor Assessment and Plan - Assessment (1) Bipolar affective, manic, severe w/ psych Code(s): F31.2 - Bipolar disorder, current episode manic severe with psychotic features Status: Acute (2) Cannabis abuse Code(s): F12.10 - Cannabis abuse, uncomplicated Status: Acute - Plan Plan: Patient's shelley distractibility hypersexuality are all softening somewhat, patient compliant medication. For now continue treatment continue to await word from state hospital placement Justification for Continued Inpatient Stay: At this time patient with decompensated placed in a lower level of care Discharge Planning: Continue to await word from state hospital placement however if patient continues to show improvement on a consistent basis will possibly consider return to her [facility] Request Healthcare Surrogate/Guardian Advocate?: Yes
[2018-04-02] MEDS: traZODone 100 MG Tablet PO SCH (20:15)
[2018-04-03] MEDS: Levothyroxine 75 MCG Tablet PO SCH (07:31)
[2018-04-03] MEDS: Ferrous Sulfate 325 MG Tablet PO SCH ×2 (08:18→20:43)
[2018-04-03] MEDS: Pantoprazole Sodium 20 MG DR Tablet PO SCH ×2 (08:18→20:43)
[2018-04-03] MEDS: Rivaroxaban 20 MG Tablet PO SCH (08:19)
[2018-04-03] MEDS: Senna/Docusate Sodium 8.6/50 MG Tablet PO SCH (08:19)
[2018-04-03] MEDS: ChlorproMAZINE 50 MG Tablet PO SCH ×3 (08:19→17:18)
--- NOTE | 2018-04-03 13:30 | P.PNPSY ---
Subjective Chief Complaint: Bipolar I Disorder - current Manic Episode Remarks: Patient is seen in day room with nurse Agnieszka. Chart reviewed. Patient compliant medication. Patient complaining of some feelings of abdominal discomfort and perhaps mild distention. However she also acknowledges passing flatus and had a bowel movement yesterday. She is vague about nausea so she is eating today without problems. CBC with differential drawn yesterday is been stable. Will order 2 views of the abdomen just to verify if there may be an observable obstruction. Patient coping well with this remains calm cooperative with minimal signs of shelley at this time Review of Systems All other systems reviewed negative except as stated in HPI Mental Status Examination Appearance: Appropriate Consciousness: Alert Orientation: Person, Place (at least), Date/Time Motor Activity: Other (No abnormal motor movements noted) Speech: Slow (Improving) Language: Adequate Fund of Knowledge: Poor (Improving) Attention and Concentration: Adequate (Fair) Memory: Unremarkable Mood: Other (Euthymic to somewhat restricted) Affect: Other Thought Process & Associations: Loose associations, Tangential Thought Content: Bizarre thinking, Delusional Hallucination Type: None Delusion Type: Bizarre (Improved), Other (Grandiose) Suicidal Ideation: No Suicidal Plan: No Suicidal Intention: No Homicidal Ideation: No Homicidal Plan: No Homicidal Intention: No Insight: Poor Judgment: Poor Assessment and Plan - Assessment (1) Bipolar affective, manic, severe w/ psych Code(s): F31.2 - Bipolar disorder, current episode manic severe with psychotic features Status: Acute (2) Cannabis abuse Code(s): F12.10 - Cannabis abuse, uncomplicated Status: Acute - Plan Plan: Patient's shelley continues to resolve. Today complaining of some abdominal pain and distention patient has had a history of bowel obstruction we will get x- rays 2 views of abdomen today Justification for Continued Inpatient Stay: At this time patient with decompensated placed in a lower level of care Discharge Planning: Continue to await word from state hospital referral Request Healthcare Surrogate/Guardian Advocate?: Yes
--- NOTE | 2018-04-03 14:17 | XR ---
EXAM DATE: 04/03/2018 2:13 PM EST AGE/SEX: 52 years / Female INDICATIONS: Distention. CLINICAL DATA: This is the patient's subsequent encounter. Patient reports that signs and symptoms h ave been present for 1 week and indicates a pain score of 0/10. MEDICAL/SURGICAL HISTORY: Hypertension. bipolar None. [place]PAR[place] [facility] [place] 1[place]/2018. . FINDINGS: Supine and upright views of the abdomen were performed. The abdominal bowel gas pattern is normal. No air-fluid levels are seen. Excessive fecal debris is noted throughout the colon consistent with poss ible constipation. No abnormal masses, calcifications, or organomegaly is seen. The visualized lower lungs are clear. No evidence of free intraperitoneal gas. The osseous structures are unremarkable. CONCLUSION: Extensive fecal debris throughout the colon consistent with possible constipation. Clinical correlati on is recommended. Electronically signed by: Mani Neves MD Board Certified Radiologist 04/03/2018 2:16 PM EST
[2018-04-03] MEDS: traZODone 100 MG Tablet PO SCH (20:45)
[2018-04-04] MEDS: Acetaminophen 325 MG Tablet PO PRN (01:51)
[2018-04-04] MEDS: Levothyroxine 75 MCG Tablet PO SCH (05:01)
[2018-04-04] MEDS: ChlorproMAZINE 50 MG Tablet PO SCH ×3 (08:38→17:58)
[2018-04-04] MEDS: Ferrous Sulfate 325 MG Tablet PO SCH ×2 (08:39→21:13)
[2018-04-04] MEDS: Pantoprazole Sodium 20 MG DR Tablet PO SCH ×2 (08:39→21:12)
[2018-04-04] MEDS: Senna/Docusate Sodium 8.6/50 MG Tablet PO SCH (08:39)
[2018-04-04] MEDS: Rivaroxaban 20 MG Tablet PO SCH (08:55)
--- NOTE | 2018-04-04 16:32 | P.PNPSY ---
Subjective Chief Complaint: Bipolar I Disorder - current Manic Episode Remarks: Reviewed electronic medical records and discussed case with staff. Follow-up was conducted in the hallway with FRED Rivers present. Her nurse advises that she has been doing much better of late. The patient reports that she feels "some". She does complain of a slight stomachache today. She says is okay though because it is due to her . She states that she is sleeping well and has good appetite denies any side effects from her medication. Mental Status Examination Appearance: Appropriate Consciousness: Alert Orientation: Person, Place (at least), Date/Time Motor Activity: Other (No abnormal motor movements noted) Speech: Slow (Improving) Language: Adequate Fund of Knowledge: Poor (Improving) Attention and Concentration: Adequate (Fair) Memory: Unremarkable Mood: Other (Euthymic to somewhat restricted) Affect: Other Thought Process & Associations: Loose associations, Tangential Thought Content: Bizarre thinking, Delusional Hallucination Type: None Delusion Type: Bizarre (Improved), Other (Grandiose) Suicidal Ideation: No Suicidal Plan: No Suicidal Intention: No Homicidal Ideation: No Homicidal Plan: No Homicidal Intention: No Insight: Poor Judgment: Poor Assessment and Plan - Assessment (1) Bipolar affective, manic, severe w/ psych Code(s): F31.2 - Bipolar disorder, current episode manic severe with psychotic features Status: Acute - Plan Plan: Patient will be reevaluated by the attending psychiatrist. Continue with current treatment plan. Justification for Continued Inpatient Stay: Moving this patient to a less restrictive environment would likely result in decompensation. Request Healthcare Surrogate/Guardian Advocate?: Yes
[2018-04-04] MEDS: traZODone 100 MG Tablet PO SCH (21:12)
[2018-04-04] MEDS ORDERED: Mineral Oil Enema 118 ML Bottle RECTAL SCH (22:00)
[2018-04-05] MEDS: Acetaminophen 325 MG Tablet PO PRN (02:01)
[2018-04-05] MEDS: Levothyroxine 75 MCG Tablet PO SCH (06:24)
[2018-04-05] MEDS: Rivaroxaban 20 MG Tablet PO SCH (08:26)
[2018-04-05] MEDS: Ferrous Sulfate 325 MG Tablet PO SCH ×2 (08:26→20:39)
[2018-04-05] MEDS: Senna/Docusate Sodium 8.6/50 MG Tablet PO SCH (08:27)
[2018-04-05] MEDS: Pantoprazole Sodium 20 MG DR Tablet PO SCH ×2 (08:27→20:41)
[2018-04-05] MEDS: ChlorproMAZINE 50 MG Tablet PO SCH ×3 (08:28→17:46)
--- NOTE | 2018-04-05 17:40 | P.PNPSY ---
Subjective Chief Complaint: Bipolar I Disorder - current Manic Episode Remarks: Reviewed electronic medical records and discussed case with staff. Follow-up was conducted in the hallway with FRED Aaron present. Her nurse advises that she has been suffering from some constipation and that her last lithium level was on March 25. Otherwise she reports she is doing very well, has been taking naps, and overall is pleasant and cooperative with care. Patient states that she feels "good". She reports that she is sleeping well and has a great appetite. She reports that her mood is good and her affect is euthymic. There is no indication at this time of manic symptoms and she seems to be at her baseline. She continues to await placement at a [facility] facility. Mental Status Examination Appearance: Appropriate Consciousness: Alert Orientation: Person, Place (at least), Date/Time Motor Activity: Other (No abnormal motor movements noted) Speech: Slow (Improving) Language: Adequate Fund of Knowledge: Poor (Improving) Attention and Concentration: Adequate (Fair) Memory: Unremarkable Mood: Other (Euthymic to somewhat restricted) Affect: Other Thought Process & Associations: Loose associations, Tangential Thought Content: Bizarre thinking, Delusional Hallucination Type: None Delusion Type: Bizarre (Improved), Other (Grandiose) Suicidal Ideation: No Suicidal Plan: No Suicidal Intention: No Homicidal Ideation: No Homicidal Plan: No Homicidal Intention: No Insight: Poor Judgment: Poor Assessment and Plan - Assessment (1) Bipolar affective, manic, severe w/ psych Code(s): F31.2 - Bipolar disorder, current episode manic severe with psychotic features Status: Acute - Plan Plan: Patient will be reevaluated by the attending psychiatrist. Continue with current treatment plan. I removed the hold on the patient's MiraLAX and ordered a lithium level to be drawn at 0600 tomorrow morning. Justification for Continued Inpatient Stay: Moving this patient to a less restrictive environment would likely result in decompensation. Request Healthcare Surrogate/Guardian Advocate?: Yes
[2018-04-05] MEDS: traZODone 100 MG Tablet PO SCH (20:41)
[2018-04-06] MEDS: Levothyroxine 75 MCG Tablet PO SCH (06:31)
[2018-04-06] MEDS: Ferrous Sulfate 325 MG Tablet PO SCH ×2 (08:18→21:11)
[2018-04-06] MEDS: Senna/Docusate Sodium 8.6/50 MG Tablet PO SCH (08:18)
[2018-04-06] MEDS: Pantoprazole Sodium 20 MG DR Tablet PO SCH ×2 (08:18→21:10)
[2018-04-06] MEDS: Rivaroxaban 20 MG Tablet PO SCH (08:19)
[2018-04-06] MEDS: ChlorproMAZINE 50 MG Tablet PO SCH ×3 (08:19→17:37)
[2018-04-06] MEDS: Polyethylene Glycol 3350 17 GM Packet PO SCH (08:45)
--- NOTE | 2018-04-06 12:49 | P.PNPSY ---
Subjective Chief Complaint: Bipolar I Disorder - current Manic Episode Remarks: Patient is seen in her room with nurse Agnieszka, chart reviewed, patient compliant medication. It appears patient is feeling better her constipation is slowly clearing. She continues calm cooperative pleasant with me the hypersexuality is markedly decreased she is showing some insight into her behaviors and making some effort to be more calm and appropriate in her responses. She is not intrusive not demanding. Her affect is calmer and more appropriate. She denies suicidality or homicidality voices or visions at this time I question with the patient may be reaching her baseline and that perhaps if an appropriate placement can be found we need not send her to the [facility] Review of Systems All other systems reviewed negative except as stated in HPI Mental Status Examination Appearance: Appropriate Consciousness: Alert Orientation: Person, Place (at least), Date/Time Motor Activity: Other (No abnormal motor movements noted) Speech: Unremarkable Language: Adequate Fund of Knowledge: Poor (Improving) Attention and Concentration: Adequate (Fair) Memory: Unremarkable Mood: Other (Euthymic) Affect: Other (Good range and intensity) Thought Process & Associations: Loose associations (Increased focus) Thought Content: Bizarre thinking (Improving) Hallucination Type: None Delusion Type: Bizarre (Improving) Suicidal Ideation: No Suicidal Plan: No Suicidal Intention: No Homicidal Ideation: No Homicidal Plan: No Homicidal Intention: No Insight: Fair Judgment: Adequate (Fair) Assessment and Plan - Assessment (1) Bipolar affective, manic, severe w/ psych Code(s): F31.2 - Bipolar disorder, current episode manic severe with psychotic features Status: Acute (2) Cannabis abuse Code(s): F12.10 - Cannabis abuse, uncomplicated Status: Acute - Plan Plan: Patient's mood behavior and thinking are improving. She is also showing some improvement in her bowel movements. For now continue treatment. I question whether patient may be improving to the point where she can be diverted from the [facility] to an appropriate referral in the community Justification for Continued Inpatient Stay: At this time patient would decompensate if not place an appropriate level of care Discharge Planning: To be determined Request Healthcare Surrogate/Guardian Advocate?: Yes
[2018-04-06] MEDS: traZODone 100 MG Tablet PO SCH (21:10)
[2018-04-07] MEDS: Levothyroxine 75 MCG Tablet PO SCH (05:37)
[2018-04-07] MEDS: Acetaminophen 325 MG Tablet PO PRN (06:28)
[2018-04-07] MEDS: Polyethylene Glycol 3350 17 GM Packet PO SCH (08:00)
[2018-04-07] MEDS: ChlorproMAZINE 50 MG Tablet PO SCH ×3 (08:00→17:25)
[2018-04-07] MEDS: Ferrous Sulfate 325 MG Tablet PO SCH ×2 (08:01→20:14)
[2018-04-07] MEDS: Rivaroxaban 20 MG Tablet PO SCH (08:01)
[2018-04-07] MEDS: Pantoprazole Sodium 20 MG DR Tablet PO SCH ×2 (08:01→20:14)
[2018-04-07] MEDS: Senna/Docusate Sodium 8.6/50 MG Tablet PO SCH (08:01)
--- NOTE | 2018-04-07 13:50 | P.PNPSY ---
Subjective Chief Complaint: Bipolar I Disorder - current Manic Episode Remarks: Patient seen and gonzalez with nurse Arabella, patient continues calm cooperative with her affect calming down for her range and intensity are within normal limits. She is much less intrusive she is more appropriate the inappropriate sexual comments have just about extinguished. She states her bowels are getting more stable also. For now we will continue treatment we will increase the Clozaril to 50 mg a.m. 100 mg at bedtime Review of Systems All other systems reviewed negative except as stated in HPI Mental Status Examination Appearance: Appropriate Consciousness: Alert Orientation: Person, Place (at least), Date/Time Motor Activity: Normal gait Speech: Unremarkable Language: Adequate Fund of Knowledge: Poor (Improving) Attention and Concentration: Adequate (Fair) Memory: Unremarkable Mood: Other (Euthymic) Affect: Other (Good range and intensity) Thought Process & Associations: Loose associations (Increased focus) Thought Content: Bizarre thinking (Improving) Hallucination Type: None Delusion Type: Bizarre (Improving) Suicidal Ideation: No Suicidal Plan: No Suicidal Intention: No Homicidal Ideation: No Homicidal Plan: No Homicidal Intention: No Insight: Fair Judgment: Adequate (Fair) Assessment and Plan - Assessment (1) Bipolar affective, manic, severe w/ psych Code(s): F31.2 - Bipolar disorder, current episode manic severe with psychotic features Status: Acute (2) Cannabis abuse Code(s): F12.10 - Cannabis abuse, uncomplicated Status: Acute - Plan Plan: Patient continues to improve, she is now starting to show some consistency in her behavior. Now there is a problem of finding an appropriate placement for this lady. For now continue treatment see medication adjustments above Justification for Continued Inpatient Stay: At this time patient will decompensate if placed in an inappropriate level of care Discharge Planning: Continue to work with finding appropriate placement Request Healthcare Surrogate/Guardian Advocate?: Yes
[2018-04-07] MEDS: traZODone 100 MG Tablet PO SCH (20:14)
[2018-04-08] MEDS: Acetaminophen 325 MG Tablet PO PRN (05:00)
[2018-04-08] MEDS: Levothyroxine 75 MCG Tablet PO SCH (05:58)
[2018-04-08] MEDS: ChlorproMAZINE 50 MG Tablet PO SCH ×3 (08:11→17:35)
[2018-04-08] MEDS: Rivaroxaban 20 MG Tablet PO SCH (08:12)
[2018-04-08] MEDS: Ferrous Sulfate 325 MG Tablet PO SCH ×2 (08:12→20:34)
[2018-04-08] MEDS: Senna/Docusate Sodium 8.6/50 MG Tablet PO SCH (08:12)
[2018-04-08] MEDS: Pantoprazole Sodium 20 MG DR Tablet PO SCH ×2 (08:13→20:34)
[2018-04-08] MEDS: Polyethylene Glycol 3350 17 GM Packet PO SCH (08:15)
--- NOTE | 2018-04-08 12:50 | P.PNPSY ---
Subjective Chief Complaint: Bipolar I Disorder - current Manic Episode Remarks: Patient seen in her room with nurse Arabella, chart reviewed, patient compliant medication. Patient seen laying down on her bed she is calm cooperative she is not intrusive at this time her speech rate and rhythm are slowed there is no pressure to it. Her hypersexuality and comments of markedly decreased. She is not invasive into personal space at this time. At this time patient is showing good improvement. We are hoping for consistency in his behavior. We are also exploring possible placement in the community. For now we will also condensed patient's lithium dosage from 300 mg 4 times daily to 600 mg twice daily Review of Systems All other systems reviewed negative except as stated in HPI Mental Status Examination Appearance: Appropriate Consciousness: Alert Orientation: Person, Place (at least), Date/Time Motor Activity: Normal gait Speech: Unremarkable Language: Adequate Fund of Knowledge: Poor (Improving) Attention and Concentration: Adequate (Fair) Memory: Unremarkable Mood: Other (Euthymic to somewhat restricted) Affect: Other (Good range and intensity) Thought Process & Associations: Loose associations (Increased focus) Thought Content: Bizarre thinking (Improving) Hallucination Type: None Delusion Type: Bizarre (Improving) Suicidal Ideation: No Suicidal Plan: No Suicidal Intention: No Homicidal Ideation: No Homicidal Plan: No Homicidal Intention: No Insight: Fair Judgment: Adequate (Fair) Assessment and Plan - Assessment (1) Bipolar affective, manic, severe w/ psych Code(s): F31.2 - Bipolar disorder, current episode manic severe with psychotic features Status: Acute (2) Cannabis abuse Code(s): F12.10 - Cannabis abuse, uncomplicated Status: Acute - Plan Plan: Patient's mood continues to stabilize her psychosis is also softening. And does denies voices at this time. She is compliant with medication. Please see medication adjustment above. For now continue treatment Justification for Continued Inpatient Stay: At this time patient with decompensated placed in an appropriate level of care Discharge Planning: To be determined Request Healthcare Surrogate/Guardian Advocate?: Yes
--- NOTE | 2018-04-08 13:26 | P.TTN ---
- Patient Problems Problems: 1. Discharge planning 2. Medication compliance 3. Knowledge deficit 4. Lack of coping skills - Progress Toward Goals Provider Present: Dr. Marika Guardado (Patient is improving, patient remains for further stabilization is likely to be discharged later this week or early next week. Dr. Guardado is no longer titrating medications.) Provider Input: 03/25/18: Patient is on the [facility] waiting list. Patient was denied by [facility] to receive ECT treatments. Sent ECT packet to [facility] in [facility]. 03/16/2018; per psychiatrist, patient medication contiues to require adjustment, due to inappropriate sexual behavior. 2017 Patient still meets criteria to remain on the unit. Yesterday she wanted to bolt through the locked doors to go after a male. She is very sexually inappropriate. 03/04/18; patient is not stable at this point, medication is still be adjust. 03/02/2018; patient is refusing medication and will be given IM; patient is delusional and responding to internal stimuli. 02/23: Pt, over this weekend, has refused all medications. Pt is currently 1:1 per her instability. Pt currently has DVT. Options include pt to accept medication for recommended tx, ECT via court order, [facility]. Isaac, counselor, to follow up with [facility] application and with pt to return to court [place] for court to rule on ECT as option. 02/18/18: Pt is being titrated on Lorazepam and Tegretal with subcutaneous Lovenox an impediment to pt being placed in [facility]. Pt does not currently meet SNF placement, OTR consults with Therapy Dept to confirm pt not meeting SNF status. to consult with hemotologist re: options for Lovenox (ie: P.O. medication) to increase dc options. 02/16/18: pt continuing medication; patient is continuing to slowly stabalize, continue medication mangement. case repairer is continuing to work on locating safe placement for [facility] - at this time reviewing [facility]. 02/11/18: pt currently on tegretal 350 BID; pt is slowly stabilizing, further medication adjustments limited relative to pt's elevated sodium issues. Pt's sister has indicated she would like pt to remain at [facility] until pt is stabilized so pt can return to [facility]. Pt continues to meet in-pt criteria. 02/09/18: Pt continues to be manic, hyperverbal, intrusive and needs to remain for further stabilization. Tegrertal being titrated. Collateral from pt's sister is that pt continues to exhibit shelley. 01/28: Adjusting and increasing pt's medications today, pt is homeless, case management is working on placement to SNF, watch water intake due to decrease in sodium Nurse(s) Present: RN Nurse Input: 03/25/18: Med Compliant, Inappropriate with staff, kissing male and female staff members. 03/16/2018;per RN patient requires ongoing redirection, very inappropriate behavior, playing with her feces, very sexual, unable to follow verable ques. 03/09/2018 Patient still requires 1:1 touch. Intrusive and attempts to touch others. 03/04/2018; patient is responding to internal stimuli, requires 1:1, still refuse medication, and very nonsensical with thoughts. 03/02/2018; patient is responding to internal stimuli, she is difficult to redirect, with nonsensical thoughts. 02/16/18: pt continuing hyperverbal, pt continuing to socialize, rapid pressure speech and is continuing to be medication compliant. 01/28: Pt remains manic, hyperverbal, religiously preoccupied, rapid pressured speech, med compliant Psychiatric Counselors Present: Isaac Lentz Jr., [facility] (Patient denied at [facility]. Counselor attempting the place the patient at [facility]. ), Steffanie Liz, [facility], Other Psychiatric Therapist Input: 03/25/18: Patient denied at [facility] and denied at [facility] in [place] regarding ECT.Counselor faxed ECT packet to [facility] in [facility] on Saturday March 24, 2018. As a back-up plan patient can returnto [facility] per Alice at [facility]. [id number] [facility] has been completed patient is officially on the wait list. 03/16/2018; counselor will continue to move towards ECT plan with treating psychiatrist, state package has been submitted. 03/09/2018 Still looking for ECT placement and State should have already been implemented. 03/04/2018; dc placement remain the same, dc to [facility] when stable if appropriate if not to a different [facility]. 03/02/2018; patient placement is still in review, to determine if returning to [facility] is appropriate verse a higher level of care. 02/16/18: pt is improving slowly, case repairer is to work on finding different placement, at this time reviewing [facility], as of Friday02/13/18 pt was still improving per provider. 02/09/18: Pt plof was [facility], current plan is for pt to return when stabilized. Pt currrently meets criteria for in-pt status. Group Spec/RT/OT/BARRERA Present: Litzy Santacruz, GPS, Rasta Archibald, OT, Stanislaw Lin, BARRERA (Patient attends select groups and is more redirectable than she has been previously.) Group Spec/RT/OT/BARRERA Input: 03/25/18: Patient has a difficult time engaging in the group activities. Pt needs contant redirection but is easily redirected by RT/OT staff. 03/16/2018; per OT patient is too inappropriate for most group, and unable to participate. 03/09/2018 Unable to participate in any group activities. 03/04/2018 patient is unable to participate with groups. 2017; patient is unable to participate with groups or activities at this time. 02/23: Pt continues to participate in most groups, she is able to be appropriate but continues to act intrusively, requiring frequent redirection. 02/18/18: Pt ontinues to participate in groups, patient continues looking forward to socialization and participation but she continues to moderately intrusive and hyperverbal. 02/16/18: pt continues to participate in groups, patient continues looking forward to socialization and participation. 02/11/18: Pt attends most groups lately but she continues to moderately intrusive and hyperverbal, she is consistently in other people's business. Pt is redirectable with moderate effort, she is able to exercise more self-control though still needs external cuing to do so. 02/09/18: Pt attends select groups, she is intrusive, hyperverbal, needs repeated, nearly constant re-direction. 01/28: Pt attends select groups with 1:1 and constant redirection to remain quiet, focused, seated. Manic, intrusive, hyperverbal, increase in participation noted , pt is able to complete simple tasks Clinical Coordinator: Tasha Mathews [facility] Additional Input: 02/23: Isaac, counselor, to [facility] and with pt to return to court [place] for court to rule on ECT as option. 02/11/18: Pt's sister has indicated she would like pt to remain at [facility] until pt is stabilized so pt can return to [facility]. Pt continues to meet in-pt criteria. 02/09/18: Pt plof was [facility], current plan is for pt to return when stabilized. Pt currrently meets criteria for in-pt status. - Discharge Plan Other (Further evaluation for SNF placement - at this time reviewing opportunity for [facility]) 02/18/18: Pt does not currently meet SNF placement, OTR consults with Therapy Dept to confirm pt not meeting SNF status. MD to consult with hemotologist re: options for Lovenox (ie: P.O. medication) to increase dc options. 02/11/18: Pt's sister has indicated she would like pt to remain at [facility] until pt is stabilized so pt can return to [facility]. Pt continues to meet in-pt criteria. 01/28: Pt discharge planning in progress with placement to SNF 03/25/18: Pt is currently on the [facility] waiting list. As a backup plan the patient can return to [facility] per Alice at [facility]. - Documentation Scribe: Litzy Santacruz Teaching Recipient: Patient
[2018-04-08] MEDS: traZODone 100 MG Tablet PO SCH (20:35)
[2018-04-09] MEDS: Levothyroxine 75 MCG Tablet PO SCH (05:51)
[2018-04-09] MEDS: Pantoprazole Sodium 20 MG DR Tablet PO SCH ×2 (08:29→20:27)
[2018-04-09] MEDS: Ferrous Sulfate 325 MG Tablet PO SCH ×2 (08:29→20:27)
[2018-04-09] MEDS: ChlorproMAZINE 50 MG Tablet PO SCH ×3 (08:29→17:55)
[2018-04-09] MEDS: Rivaroxaban 20 MG Tablet PO SCH (08:32)
[2018-04-09] MEDS: Senna/Docusate Sodium 8.6/50 MG Tablet PO SCH (08:32)
[2018-04-09] MEDS: Polyethylene Glycol 3350 17 GM Packet PO SCH (08:38)
--- NOTE | 2018-04-09 13:29 | P.PNPSY ---
Subjective Chief Complaint: Bipolar I Disorder - current Manic Episode Remarks: Patient seen in day room with nurse Arabella, chart reviewed, patient compliant medication. Patient continues calm cooperative and pleasant speech rate and rhythm are within normal limits, she is not intrusive, she has been showing good behavior to good control of bowel and bladder function. Her hypersexuality has markedly decreased. For now continue treatment. Continue to work on placement issues Review of Systems All other systems reviewed negative except as stated in HPI Mental Status Examination Appearance: Appropriate Consciousness: Alert Orientation: Person, Place (at least), Date/Time Motor Activity: Normal gait Speech: Unremarkable Language: Adequate Fund of Knowledge: Inadequate Attention and Concentration: Adequate (Fair) Memory: Unremarkable Mood: Other (Euthymic) Affect: Other (Slight decreased range and intensity) Thought Process & Associations: Loose associations (Increased focus) Thought Content: Bizarre thinking (Improving) Hallucination Type: None Delusion Type: Bizarre (Improving) Suicidal Ideation: No Suicidal Plan: No Suicidal Intention: No Homicidal Ideation: No Homicidal Plan: No Homicidal Intention: No Insight: Fair Judgment: Adequate (Fair) Assessment and Plan - Assessment (1) Bipolar affective, manic, severe w/ psych Code(s): F31.2 - Bipolar disorder, current episode manic severe with psychotic features Status: Acute (2) Cannabis abuse Code(s): F12.10 - Cannabis abuse, uncomplicated Status: Acute - Plan Plan: Patient's mood continues to improve, denies suicidality or homicidality voices or visions. Continue to work on placement issues, compliant medication Justification for Continued Inpatient Stay: At this time patient with decompensated placed in a lower level of care Discharge Planning: Continue to work on placement issues while patient remains on the state weight list Request Healthcare Surrogate/Guardian Advocate?: Yes
[2018-04-09] MEDS: traZODone 100 MG Tablet PO SCH (20:25)
[2018-04-09] MEDS: Acetaminophen 325 MG Tablet PO PRN (23:11)
[2018-04-10] MEDS: Levothyroxine 75 MCG Tablet PO SCH (05:24)
[2018-04-10] MEDS: Senna/Docusate Sodium 8.6/50 MG Tablet PO SCH (08:08)
[2018-04-10] MEDS: Pantoprazole Sodium 20 MG DR Tablet PO SCH ×2 (08:08→20:56)
[2018-04-10] MEDS: ChlorproMAZINE 50 MG Tablet PO SCH ×3 (08:08→18:11)
[2018-04-10] MEDS: Rivaroxaban 20 MG Tablet PO SCH (08:09)
[2018-04-10] MEDS: Ferrous Sulfate 325 MG Tablet PO SCH ×2 (08:09→20:56)
[2018-04-10] MEDS: Polyethylene Glycol 3350 17 GM Packet PO SCH (08:52)
--- NOTE | 2018-04-10 09:48 | P.PNPSY ---
Subjective Chief Complaint: Bipolar I Disorder - current Manic Episode Remarks: Patient is seen in day room with floor staff, chart reviewed, patient discussed with nurse. Patient did have good interview with possible placement yesterday. Though she did state that the staff there that she thought she might be . She is compliant with her medication. Her mood is softening her affect is showing good range and intensity at this time she is not intrusive or hypersexuality is markedly diminished also her dress is more appropriate, the been no episodes of fecal or urine incontinence or manipulation. We will increase patient's a.m. Clozaril to 100 mg. Continue to await word from possible placement. Otherwise patient remains on the state weight list Review of Systems All other systems reviewed negative except as stated in HPI Mental Status Examination Appearance: Appropriate Consciousness: Alert Orientation: Person, Place (at least), Date/Time Motor Activity: Normal gait Speech: Unremarkable Language: Adequate Fund of Knowledge: Inadequate Attention and Concentration: Adequate (Fair) Memory: Unremarkable Mood: Other (Euthymic) Affect: Other (Slight decreased range and intensity) Thought Process & Associations: Loose associations (Increased focus) Thought Content: Bizarre thinking (Improving) Hallucination Type: None Delusion Type: Bizarre (Today states she thinks she is ) Suicidal Ideation: No Suicidal Plan: No Suicidal Intention: No Homicidal Ideation: No Homicidal Plan: No Homicidal Intention: No Insight: Fair Judgment: Adequate (Fair) Assessment and Plan - Assessment (1) Bipolar affective, manic, severe w/ psych Code(s): F31.2 - Bipolar disorder, current episode manic severe with psychotic features Status: Acute (2) Cannabis abuse Code(s): F12.10 - Cannabis abuse, uncomplicated Status: Acute - Plan Plan: Patient continues to improve though remains somewhat delusional, see medication adjustment above. Continue to await word from possible placement. Continue to await word from state hospital referral Justification for Continued Inpatient Stay: At this time patient would decompensate if not place an appropriate level of care Discharge Planning: Continue to await word from local facility, continue to await word from state hospital referral Request Healthcare Surrogate/Guardian Advocate?: Yes
[2018-04-10] MEDS: Acetaminophen 325 MG Tablet PO PRN (15:50)
[2018-04-10] MEDS: traZODone 100 MG Tablet PO SCH (20:56)
[2018-04-11] MEDS: Levothyroxine 75 MCG Tablet PO SCH (06:05)
[2018-04-11] MEDS: ChlorproMAZINE 50 MG Tablet PO SCH ×4 (08:15→18:03)
[2018-04-11] MEDS: Rivaroxaban 20 MG Tablet PO SCH (08:20)
[2018-04-11] MEDS: Ferrous Sulfate 325 MG Tablet PO SCH ×2 (08:21→20:37)
[2018-04-11] MEDS: Senna/Docusate Sodium 8.6/50 MG Tablet PO SCH (08:22)
[2018-04-11] MEDS: Polyethylene Glycol 3350 17 GM Packet PO SCH (12:40)
[2018-04-11] MEDS: Pantoprazole Sodium 20 MG DR Tablet PO SCH ×2 (12:41→20:37)
--- NOTE | 2018-04-11 14:30 | P.PNPSY ---
Subjective Chief Complaint: Bipolar I Disorder - current Manic Episode Remarks: Patient was seen and case discussed with nursing. Patient continues to improve. Her shelley appears to be resolved. She is no longer hyperactive agitated or hyperverbal. She is compliant with her medications. Discussed her upcoming discharge. Review of Systems All other systems reviewed negative except as stated in HPI Mental Status Examination Appearance: Appropriate Consciousness: Alert Orientation: Person, Place (at least), Date/Time Motor Activity: Normal gait Speech: Unremarkable Language: Adequate Fund of Knowledge: Inadequate Attention and Concentration: Adequate (Fair) Memory: Unremarkable Mood: Other (Euthymic) Affect: Other (Slight decreased range and intensity) Thought Process & Associations: Disorganized Thought Content: Appropriate Hallucination Type: None Delusion Type: Bizarre (Today states she thinks she is ) Suicidal Ideation: No Suicidal Plan: No Suicidal Intention: No Homicidal Ideation: No Homicidal Plan: No Homicidal Intention: No Insight: Fair Judgment: Adequate (Fair) Assessment and Plan - Assessment (1) Bipolar affective, manic, severe w/ psych Code(s): F31.2 - Bipolar disorder, current episode manic severe with psychotic features Status: Acute (2) Cannabis abuse Code(s): F12.10 - Cannabis abuse, uncomplicated Status: Acute - Plan Plan: Continue current treatment plan Justification for Continued Inpatient Stay: Patient would decompensate in a less restrictive setting Request Healthcare Surrogate/Guardian Advocate?: Yes
[2018-04-11] MEDS: traZODone 100 MG Tablet PO SCH (20:37)
[2018-04-12] MEDS: Acetaminophen 325 MG Tablet PO PRN (03:43)
[2018-04-12] MEDS: Levothyroxine 75 MCG Tablet PO SCH (05:26)
[2018-04-12] MEDS: Polyethylene Glycol 3350 17 GM Packet PO SCH (08:48)
[2018-04-12] MEDS: ChlorproMAZINE 50 MG Tablet PO SCH (08:49)
[2018-04-12] MEDS: Pantoprazole Sodium 20 MG DR Tablet PO SCH ×2 (08:49→21:33)
[2018-04-12] MEDS: Ferrous Sulfate 325 MG Tablet PO SCH ×2 (08:49→21:33)
[2018-04-12] MEDS: Rivaroxaban 20 MG Tablet PO SCH (08:50)
[2018-04-12] MEDS: Senna/Docusate Sodium 8.6/50 MG Tablet PO SCH (08:50)
--- NOTE | 2018-04-12 18:20 | P.PNPSY ---
Subjective Chief Complaint: Bipolar I Disorder - current Manic Episode Remarks: Reviewed electronic medical records and discussed case with staff. Follow-up was conducted in the patient's room with FRED Betancur present. Patient is found lying awake in bed. Nurse reports she has been compliant with her medications and doing very well. Patient reports that she feels she is on too much medication that she says she is sleepy and zonked out all the time. She claims is sleeping well at night and that her appetite's been good. She reports that her mood is good but reiterates that she feels she is overmedicated due to lethargy. She is excited about her possible discharge on Friday. Mental Status Examination Appearance: Appropriate Consciousness: Alert Orientation: Person, Place (at least), Date/Time Motor Activity: Normal gait Speech: Unremarkable Language: Adequate Fund of Knowledge: Inadequate Attention and Concentration: Adequate (Fair) Memory: Unremarkable Mood: Other (Euthymic) Affect: Other (Slight decreased range and intensity) Thought Process & Associations: Disorganized Thought Content: Appropriate Hallucination Type: None Delusion Type: Bizarre (Today states she thinks she is ) Suicidal Ideation: No Suicidal Plan: No Suicidal Intention: No Homicidal Ideation: No Homicidal Plan: No Homicidal Intention: No Insight: Fair Judgment: Adequate (Fair) Assessment and Plan - Assessment (1) Bipolar affective, manic, severe w/ psych Code(s): F31.2 - Bipolar disorder, current episode manic severe with psychotic features Status: Acute - Plan Plan: Patient will be reevaluated by the attending psychiatrist. Continue with current treatment plan. Justification for Continued Inpatient Stay: Moving this patient to a less restrictive environment would likely result in decompensation. Request Healthcare Surrogate/Guardian Advocate?: Yes
[2018-04-12] MEDS: traZODone 100 MG Tablet PO SCH (21:32)
[2018-04-13] MEDS: Levothyroxine 75 MCG Tablet PO SCH (05:48)
[2018-04-13] MEDS: Rivaroxaban 20 MG Tablet PO SCH (08:06)
[2018-04-13] MEDS: Ferrous Sulfate 325 MG Tablet PO SCH ×2 (08:06→20:57)
[2018-04-13] MEDS: Pantoprazole Sodium 20 MG DR Tablet PO SCH ×2 (08:06→20:58)
[2018-04-13] MEDS: Polyethylene Glycol 3350 17 GM Packet PO SCH (08:07)
[2018-04-13] MEDS: Senna/Docusate Sodium 8.6/50 MG Tablet PO SCH (08:07)
--- NOTE | 2018-04-13 12:09 | P.PNPSY ---
Subjective Chief Complaint: Bipolar I Disorder - current Manic Episode Remarks: Patient seen in day room with floor staff, patient continues calm cooperative and pleasant with me, chart reviewed, patient compliant medications. Patient is excited and perhaps somewhat anxious about discharge tomorrow to the [facility]. Patient's Ativan has been on hold for a significant period of time we will discontinue that today patient denies suicidality or homicidality voices or visions. For now continue treatment and anticipate discharge tomorrow Review of Systems All other systems reviewed negative except as stated in HPI Mental Status Examination Appearance: Appropriate Consciousness: Alert Orientation: Person, Place (at least), Date/Time Motor Activity: Normal gait Speech: Unremarkable Language: Adequate Fund of Knowledge: Inadequate Attention and Concentration: Adequate (Fair) Memory: Unremarkable Mood: Other (Euthymic) Affect: Other (Slight decreased range and intensity) Thought Process & Associations: Disorganized (Improving) Thought Content: Appropriate Hallucination Type: None Delusion Type: Bizarre (Denies being today) Suicidal Ideation: No Suicidal Plan: No Suicidal Intention: No Homicidal Ideation: No Homicidal Plan: No Homicidal Intention: No Insight: Fair Judgment: Adequate (Fair) Assessment and Plan - Assessment (1) Bipolar affective, manic, severe w/ psych Code(s): F31.2 - Bipolar disorder, current episode manic severe with psychotic features Status: Acute (2) Cannabis abuse Code(s): F12.10 - Cannabis abuse, uncomplicated Status: Acute - Plan Plan: Patient's psychosis continues to resolve patient's mood is calmer, she is less intrusive today. For now continue treatment anticipate discharge tomorrow Justification for Continued Inpatient Stay: Anticipate discharge tomorrow to [facility] Discharge Planning: Discharge tomorrow to [facility] Request Healthcare Surrogate/Guardian Advocate?: Yes
--- NOTE | 2018-04-13 13:17 | P.TTN ---
- Patient Problems Problems: 1. Discharge planning 2. Medication compliance 3. Knowledge deficit 4. Lack of coping skills - Progress Toward Goals Provider Present: Dr. Marika Guardado (Patient is stable on her medication. Patient meets criteria for discharge.) Provider Input: 03/25/18: Patient is on the [facility] waiting list. Patient was denied by [facility] to receive ECT treatments. Sent ECT packet to [facility] in [facility]. 03/16/2018; per psychiatrist, patient medication contiues to require adjustment, due to inappropriate sexual behavior. 2017 Patient still meets criteria to remain on the unit. Yesterday she wanted to bolt through the locked doors to go after a male. She is very sexually inappropriate. 03/04/18; patient is not stable at this point, medication is still be adjust. 03/02/2018; patient is refusing medication and will be given IM; patient is delusional and responding to internal stimuli. 02/23: Pt, over this weekend, has refused all medications. Pt is currently 1:1 per her instability. Pt currently has DVT. Options include pt to accept medication for recommended tx, ECT via court order, [facility]. Isaac, counselor, to follow up with [facility] application and with pt to return to court [place] for court to rule on ECT as option. 02/18/18: Pt is being titrated on Lorazepam and Tegretal with subcutaneous Lovenox an impediment to pt being placed in SENIOR CARE. Pt does not currently meet SNF placement, OTR consults with Therapy Dept to confirm pt not meeting SNF status. MD to consult with hemotologist re: options for Lovenox (ie: P.O. medication) to increase dc options. 02/16/18: pt continuing medication; patient is continuing to slowly stabalize, continue medication mangement. child support case officer is continuing to work on locating safe placement for SENIOR CARE - at this time reviewing [facility]. 02/11/18: pt currently on tegretal 350 BID; pt is slowly stabilizing, further medication adjustments limited relative to pt's elevated sodium issues. Pt's sister has indicated she would like pt to remain at [facility] until pt is stabilized so pt can return to [facility]. Pt continues to meet in-pt criteria. 02/09/18: Pt continues to be manic, hyperverbal, intrusive and needs to remain for further stabilization. Tegrertal being titrated. Collateral from pt's sister is that pt continues to exhibit shelley. 01/28: Adjusting and increasing pt's medications today, pt is homeless, case management is working on placement to [facility], watch water intake due to decrease in sodium Nurse(s) Present: RN Nurse Input: 03/25/18: Med Compliant, Inappropriate with staff, kissing male and female staff members. 03/16/2018;per RN patient requires ongoing redirection, very inappropriate behavior, playing with her feces, very sexual, unable to follow verable ques. 03/09/2018 Patient still requires 1:1 touch. Intrusive and attempts to touch others. 03/04/2018; patient is responding to internal stimuli, requires 1:1, still refuse medication, and very nonsensical with thoughts. 03/02/2018; patient is responding to internal stimuli, she is difficult to redirect, with nonsensical thoughts. 02/16/18: pt continuing hyperverbal, pt continuing to socialize, rapid pressure speech and is continuing to be medication compliant. 01/28: Pt remains manic, hyperverbal, religiously preoccupied, rapid pressured speech, med compliant Psychiatric Counselors Present: Isaac Lentz Jr., [facility] (Patient will be discharged tomorrow to [facility] assisted living facility in [place]), [facility], Other Psychiatric Therapist Input: 03/25/18: Patient denied at [facility] and denied at [facility] in [place] regarding ECT.Counselor faxed ECT packet to [facility] in [facility] on Saturday March 24, 2018. As a back-up plan patient can returnto [facility] per Alice at [facility]. [id number] admission form for [facility] has been completed patient is officially on the wait list. 03/16/2018; counselor will continue to move towards ECT plan with treating psychiatrist, state package has been submitted. 03/09/2018 Still looking for ECT placement and State should have already been implemented. 03/04/2018; dc placement remain the same, dc to [facility] when stable if appropriate if not to a different SENIOR CARE. 03/02/2018; patient placement is still in review, to determine if returning to [facility] is appropriate verse a higher level of care. 02/16/18: pt is improving slowly, child support case officer is to work on finding different placement, at this time reviewing [facility], as of Friday02/13/18 pt was still improving per provider. 02/09/18: Pt plof was [facility], current plan is for pt to return when stabilized. Pt currrently meets criteria for in-pt status. Group Spec/RT/OT/BARRERA Present: Litzy Santacruz, GPS (Patient attends select groups and is redirectable.), Rasta Archibald, OT, Stanislaw Lin, BARRERA (Patient attends select groups and is more redirectable than she has been previously.) Group Spec/RT/OT/BARRERA Input: 03/25/18: Patient has a difficult time engaging in the group activities. Pt needs contant redirection but is easily redirected by RT/OT staff. 03/16/2018; per OT patient is too inappropriate for most group, and unable to participate. 03/09/2018 Unable to participate in any group activities. 03/04/2018 patient is unable to participate with groups. 2017; patient is unable to participate with groups or activities at this time. 02/23: Pt continues to participate in most groups, she is able to be appropriate but continues to act intrusively, requiring frequent redirection. 02/18/18: Pt ontinues to participate in groups, patient continues looking forward to socialization and participation but she continues to moderately intrusive and hyperverbal. 02/16/18: pt continues to participate in groups, patient continues looking forward to socialization and participation. 02/11/18: Pt attends most groups lately but she continues to moderately intrusive and hyperverbal, she is consistently in other people's business. Pt is redirectable with moderate effort, she is able to exercise more self-control though still needs external cuing to do so. 02/09/18: Pt attends select groups, she is intrusive, hyperverbal, needs repeated, nearly constant re-direction. 01/28: Pt attends select groups with 1:1 and constant redirection to remain quiet, focused, seated. Manic, intrusive, hyperverbal, increase in participation noted , pt is able to complete simple tasks Clinical Coordinator: [facility] Additional Input: 02/23: Isaac, counselor, to follow up with [facility] application and with pt to return to court [place] for court to rule on ECT as option. 02/11/18: Pt's sister has indicated she would like pt to remain at [facility] until pt is stabilized so pt can return to [facility]. Pt continues to meet in-pt criteria. 02/09/18: Pt plof was [facility], current plan is for pt to return when stabilized. Pt currrently meets criteria for in-pt status. - Discharge Plan Other (Further evaluation for SENIOR CARE placement - at this time reviewing opportunity for [facility]) 02/18/18: Pt does not currently meet SNF placement, OTR consults with Therapy Dept to confirm pt not meeting SNF status. MD to consult with hemotologist re: options for Lovenox (ie: P.O. medication) to increase dc options. 02/11/18: Pt's sister has indicated she would like pt to remain at [facility] until pt is stabilized so pt can return to [facility]. Pt continues to meet in-pt criteria. 01/28: Pt discharge planning in progress with placement to [facility] 03/25/18: Pt is currently on the [facility] waiting list. As a backup plan the patient can return to [facility] intermediate per Alice at [facility]. - Documentation Scribe: Litzy Santacruz Teaching Recipient: Patient
[2018-04-13 16:49] VITALS: RESP 18
[2018-04-13] MEDS: traZODone 100 MG Tablet PO SCH (20:57)
[2018-04-14] MEDS: Aluminum/Magnesium/Simethacone Susp 30 ML UDC PO PRN (02:22)
[2018-04-14 05:41] VITALS: BP 109/60; PULSE 90; TEMP 97.3; O2SAT 96
[2018-04-14] MEDS: Levothyroxine 75 MCG Tablet PO SCH (06:08)
[2018-04-14] MEDS: Rivaroxaban 20 MG Tablet PO SCH (08:27)
[2018-04-14] MEDS: Senna/Docusate Sodium 8.6/50 MG Tablet PO SCH (08:27)
[2018-04-14] MEDS: Pantoprazole Sodium 20 MG DR Tablet PO SCH (08:28)
[2018-04-14] MEDS: Ferrous Sulfate 325 MG Tablet PO SCH (08:28)
[2018-04-14] MEDS: Polyethylene Glycol 3350 17 GM Packet PO SCH (08:29)
--- NOTE | 2018-04-14 09:06 | P.DSPSY ---
Psychiatry Discharge Summary Inpatient Psychiatric care?: Yes Advance Directives: No Mental Health Advance Directive: No Health Care Proxy: No - Admission Admission Date: January 16, 2018 18:54 - Admission Diagnosis (1) Bipolar affective, manic, severe w/ psych Code(s): F31.2 - Bipolar disorder, current episode manic severe with psychotic features (2) Cannabis abuse Code(s): F12.10 - Cannabis abuse, uncomplicated Brief History: Patient is a 52-year-old female with a history of bipolar disorder. She remains quite symptomatic. She is very pressured, hyperactive, increased energy , poor sleep, grandiose and euphoric. She does note irritability last night going on a tirade against her sitter. She admits to auditory hallucinations of Chauncey. Responding to ideas of reference from the TV. He does deny suicidal or homicidal ideation intent or plan Past psych: Patient has been diagnosed with bipolar and sees Dr. Schumacher on an outpatient basis. She is unaware what medication she was on. She denies a history of suicide attempts but says she does have a history of thoughts. Past medical: Recent episode of ischemic colitis Past Famhx: Unsure Past Social: Patient admits to regular use of cannabis and irregular use of alcohol. 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 However the continued medication adjustments and management. With his switching to Thorazine and then with the addition of the Clazuril patient's shelley slowly diminished her intensity intrusiveness hypersexuality gradually resolved. At this time patient denies suicidality or homicidality voices or visions. Her mood is euthymic to mildly hypomanic there have been no inappropriate behavioral issues. There is been no incontinence of bladder or bowels. Patient has found an appropriate placement in the [facility]. She is willing to go there is excited about this placement thus patient will be discharged today to that facility with Rx times 1 month of her scheduled medications and to follow-up with [facility] management services and follow-up with her PCP will also do recommend absolute abstinence patient aware of the fact that she needs to abstain from any marijuana use we may refer her through [facility] for substance abuse assessment and treatment also - Discharge Discharge Date: 04/14/18 - Discharge Diagnosis (1) Bipolar affective, manic, severe w/ psych Diagnosis: Principal Code(s): F31.2 - Bipolar disorder, current episode manic severe with psychotic features Status: Acute (2) Cannabis abuse Diagnosis: Secondary Code(s): F12.10 - Cannabis abuse, uncomplicated Status: Acute Discharge Disposition: Assisted Living Facility - Discharge Instructions Discharge Diet: Diabetic Diet Activities You Can Perform: Regular- No Restrictions - Discharge Time > 30 minutes Mental Status Examination Appearance: Appropriate Consciousness: Alert Orientation: Person, Place (at least), Date/Time Motor Activity: Normal gait Speech: Unremarkable Language: Adequate Fund of Knowledge: Inadequate Attention and Concentration: Adequate (Fair) Memory: Unremarkable Mood: Other (Euthymic) Affect: Other (Slight decreased range and intensity) Thought Process & Associations: Disorganized (Improving) Thought Content: Appropriate Hallucination Type: None Delusion Type: Bizarre (Denies being today) Suicidal Ideation: No Suicidal Plan: No Suicidal Intention: No Homicidal Ideation: No Homicidal Plan: No Homicidal Intention: No Insight: Fair Judgment: Adequate (Fair) Discharge/Advance Care Plan - Results Vital Signs: Last Vital Signs Temp 97.3 F L 04/14/18 05:41 Pulse 90 04/14/18 05:41 Resp 18 04/14/18 05:41 BP 109/60 04/14/18 05:41 Pulse Ox 96 04/14/18 05:41 Lab Results: Laboratory Results Hemoglobin A1c 5.7 % (4.3-6.0) 01/17/18 06:48 Triglycerides 70 mg/dL (42-150) 01/17/18 06:48 Cholesterol 125 mg/dL (120-200) 01/17/18 06:48 LDL Cholesterol, Calc 57 mg/dL (0-99) 01/17/18 06:48 HDL Cholesterol 54.5 mg/dL (40.0-60.0) 01/17/18 06:48 TSH 2.290 uIU/mL (0.358-3.740) 03/10/18 11:29 Urine Culture Comments Culture not ind 03/25/18 03:25 [place] 0.8 meq/L (0.5-1.5) 04/06/18 08:48 Summary of Procedures: None done Imaging: ITS Impressions Pelvis Ultrasound 02/13/18 00:00 CONCLUSION: 1. Unremarkable transabdominal ultrasound examination of the pelvis. The endometrium appears homogeneous and normal in thickness. However, evaluation is limited due to lack of transvaginal imaging. Venous Doppler Study 02/28/18 00:00 CONCLUSION: No evidence of venous thrombosis of the left upper extremity. Gallbladder Ultrasound 03/16/18 00:00 CONCLUSION: 1. Echogenic gallstone with no wall thickening or pericholecystic fluid. 2. Mild pyelocaliectasis in the right kidney. Bile Acid Absorption NM 03/17/18 13:51 CONCLUSION: 1. Normal gallbladder visualization no evidence of biliary obstruction. 2. Normal calculated ejection fraction of approximately 70%. Chest X-Ray 03/24/18 00:00 CONCLUSION: No acute cardiopulmonary process. Abdomen X-Ray 04/03/18 00:00 CONCLUSION: Extensive fecal debris throughout the colon consistent with possible constipation. Clinical correlation is recommended. Pending Results: None - Medications Number of antipsychotic medications at discharge: 2 Appropriate use of more than 1 antipsychotic med: Documentation of augmentation of Clozapine - Discharge Care Plan Goals to Promote Your Health: * To prevent worsening of your condition and complications * To maintain your health at the optimal level Directions to Meet Your Goals: Take your medications as prescribed Follow your dietary instruction Follow activity as directed Keep your appointments as scheduled Take your immunizations and boosters as scheduled If your symptoms worsen call your PCP, if no PCP go to Urgent Care Center or Emergency Room For 28/10 questions related to your inpatient stay or results of tests pending at discharge, please contact Dr. Rayshawn Guardado MD at Smoking is Dangerous to Your Health. Avoid second hand smoking
== END 2018-04-14 11:43 | DRG 885 ==
LOC: H4EA 18:54 → H260 01-21 14:03 → H250 02-06 22:05 → H270 02-25 10:52 → H4EA 02-27 17:56 → H270 03-06 10:00 → H260 04-11 14:49
PROVIDERS: ADMIT Psychiatry & Neurology Psychiatry; ATTEND Psychiatry & Neurology Psychiatry
DX: I82.511 Chronic embolism and thrombosis of right femoral vein; Z91.19 Patient's noncompliance with other medical treatment and regimen; Z79.01 Long term (current) use of anticoagulants; D50.9 Iron deficiency anemia, unspecified; E22.2 Syndrome of inappropriate secretion of antidiuretic hormone; B96.20 Unspecified Escherichia coli [E. coli] as the cause of diseases classified elsewhere; E87.1 Hypo-osmolality and hyponatremia; R07.89 Other chest pain; F31.2 Bipolar disorder, current episode manic severe with psychotic features; K59.09 Other constipation; Z91.5 Personal history of self-harm; G89.29 Other chronic pain; F12.10 Cannabis abuse, uncomplicated; M62.82 Rhabdomyolysis; E03.9 Hypothyroidism, unspecified; Z79.84 Long term (current) use of oral hypoglycemic drugs; K80.20 Calculus of gallbladder without cholecystitis without obstruction; Z78.1 Physical restraint status; E78.5 Hyperlipidemia, unspecified; N39.0 Urinary tract infection, site not specified; Z79.899 Other long term (current) drug therapy; Z91.14 Patient's other noncompliance with medication regimen; I10 Essential (primary) hypertension; Z79.890 Hormone replacement therapy; F90.9 Attention-deficit hyperactivity disorder, unspecified type; E11.9 Type 2 diabetes mellitus without complications; Z87.19 Personal history of other diseases of the digestive system; G47.00 Insomnia, unspecified; M54.9 Dorsalgia, unspecified; K21.9 Gastro-esophageal reflux disease without esophagitis
CPT/HCPCS: 71010; 71045; 74000; 74018; 74019; 76705; 76856; 76937; 78226; 80048; 80053; 80061; 80156; 80178; 81001; 82140; 82150; 82272; 82550; 82552; 82607; 82728; 82746; 82948; 82962; 83036; 83540; 83550; 83605; 83690; 84295; 84425; 84443; 84484; 84630; 84702; 85025; 85027; 85044; 85610; 87077; 87086; 87186; 93005; 93970; 93971; A9513; A9537; C1097; C9204; J1200; J1650; J1815; J2060; J2805; J3230; J3486; J7030